=== PATIENT | female | born 1990 | race Caucasian/White ===

== ENCOUNTER 2018-03-27 18:56 | Emergency (ER) | payer MEDICAID, SELFPAY ==
[2018-03-27 18:58] VITALS: BP 126/81; PULSE 108; RESP 16; TEMP 36.6; O2SAT 98; BMI 25.9
--- NOTE | 2018-03-27 19:11 | CT_ITS ---
STUDY: CT ABDOMEN AND PELVIS WITH CONTRAST REASON FOR EXAM: Female, 28 years old. Right flank pain RADIATION DOSAGE (If Supplied By Facility): CTDIvol = ( 7.432 ) mGy, DLP = ( 562.45 ) mGycm TECHNIQUE: Transaxial images were obtained from the dome of the diaphragm to the symphysis pubis with oral contrast. 100 ml of Isovue 300 contrast was administered. Sagittal and coronal images were reconstructed. Individualized dose optimization techniques were used for this CT. COMPARISON: 01/24/2014 FINDINGS: The visualized lung bases are clear. The visualized portions of the heart and pericardium are within normal limits. The patient is status post cholecystectomy. The liver is within normal limits. There are no suspicious hepatic lesions. The spleen is normal in size. The pancreas is within normal limits. The adrenal glands are within normal limits. There are subcentimeter nonobstructing stones in the collecting system of the right kidney, measuring up to 3 mm. There are no left renal stones. There are no ureteral stones. There is no hydronephrosis. There are no focal renal lesions. Normal visualized stomach. There is no bowel obstruction or inflammation. The appendix is visualized and appears normal. The aorta is normal in caliber. There is no abdominal or pelvic free air, free fluid, fluid collection or lymphadenopathy. There is a 2 cm right adnexal cyst which is likely physiologic. There are no destructive osseous lesions. CT/Abdomen/Pelvis WITH Contrast IMPRESSION: Subcentimeter nonobstructing stones in the collecting system of the right kidney, measuring up to 3 mm. No additional urinary calculi. No hydronephrosis. No bowel obstruction or inflammation. Normal appendix. 2 cm right adnexal cyst which is likely physiologic. Electronically Signed: Junaid Pepper, at 21:21 EDT Tel , Service support ,
[2018-03-27 19:41] LABS: Bacteria 0 SEEN /hpf (None Seen); Mucous, Urine 0 SEEN /hpf (<or=2+); Red Blood Cells-Urine 0 SEEN /hpf (0-5)
[2018-03-27 19:51] LABS: Color, Urine Yellow (Yellow); Glucose, Dipstick Normal (Normal); Ketone-Dipstick 5 mg/dl (Negative); Leukocyte Esterase-Dipstick 25 /ul (Negative); Nitrite-Dipstick Negative (Negative); Occult Blood-Urine 10 /ul (Negative); Protein-Dipstick 30 mg/dl (Negative); Urine Bilirubin Dipstick Negative (Negative); Urine Clarity Clear (Clear); Urine Urobilinogen Normal (Normal)
[2018-03-27] MEDS: Ondansetron 4 MG/2 ML Vial IV (19:53)
[2018-03-27] MEDS: 0.9% Normal Saline 1,000 ML 1000 ML IV (19:54)
[2018-03-27 20:20] LABS: Absolute Lymphocyte Count 4.65 X10^3/ul (0.83-4.51); Absolute Neutrophil Count 3.8 X10^3/uL (2.0-7.7); Basophil# 0.05 X10^3/uL; Basophil% 0.5 % (0-1); Eosinophil# 0.42 X10^3/uL; Eosinophils% 4.2 % (0-5); Hematocrit 33.7 % (37-47); Hemoglobin 10.7 g/dl (12.0-15.0); Lymphocyte # 4.65 X10^3/ul (4.0); Mean Corp Hgb Conc 31.8 g/gl (32-36); Mean Corpuscular Hgb 28.9 pg (27.0-32.0); Mean Corpuscular Volume 91.1 fL (81-99); Mean Platelet Vol. 10.2 fl (6.2-12.0); Monocyte# 0.95 X10^3/uL; Monocyte% 9.6 % (0-10); Neutrophil # 3.81 X10^3/uL (2.7-7.7); Neutrophil % 38.5 % (47-70); Platelet Count 270 K/mm3 (150-450); RBC Distribution Width CV 13.3 % (11.6-14.6); RBC Distribution Width SD 43.4 fl (35.1-43.9); White Blood Count 9.9 K/mm3 (4.4-11.0)
[2018-03-27 20:28] LABS: AST(SGOT) 72 U/L (15-37); Alanine Aminotransfer ALT/SGPT 107 U/L (13-56); Albumin, Serum 3.6 g/dL (3.2-5.0); Alkaline Phosphatase 80 U/L (45-117); Anion Gap 7 (5-15); BUN 16 mg/dL (7-18); Calcium,Total 8.7 mg/dL (8.5-10.1); Chloride 108 mmol/L (98-107); Creatinine, Serum 0.73 mg/dL (0.55-1.02); EST Glomerular Filtration Rate 101 mL/min (>60); Est Glom Filt Rate - Afr Amer 123 mL/min (>60); Estimated Creatinine Clearance 82.41 ml/min; Glucose 98 mg/dL (74-106); Lipase 86 U/L (73-393); Potassium 3.8 mmol/L (3.5-5.1); Protein, Total 7.6 g/dL (6.4-8.2); Sodium Level 140 mmol/L (136-145)
[2018-03-27 20:37] LABS: POSITIVE COUNT NO; POSITIVE DIFFERENTIAL NO; POSITIVE MORPHOLOGY NO
[2018-03-27 20:38] LABS: White Blood Cells 0-5 SEEN /hpf (0-5)
[2018-03-27 20:39] LABS: Squamous Epithelial Cells - UA 0-5 SEEN /hpf (5-10)
[2018-03-27 20:41] LABS: Pregnancy, Serum, hCG Quali. NEGATIVE Negative (0-9 Nonpreg)
[2018-03-27] MEDS: Ondansetron ODT 4 MG Tablet PO (21:24)
--- NOTE | 2018-03-27 21:33 | ED.VISSUMM ---
- ER Visit Summary Date of Service: 03/27/18 Chief Complaint: Abdominal pain History of Present Illness: The patient is a [address] Vogel and Dr. Minna Santoro. She reports that she has right-sided abdominal pain began yesterday. It is a stabbing pain that is 9-10 hours and 6 out of 10 currently. Is worsened by nothing. Is relieved by pressure. She has had nausea and dry heaves. She denies any diarrhea. Her last bowel was yesterday. No melena or hematochezia. No dysuria frequency. Her last menstrual period was 3 weeks ago. She reports that she is on Suboxone. She has a history of IV drug abuse. She states that she has not used heroin or methamphetamine IV since March 01. Physical Examination: Vitals: Stable. Afebrile. General: Well-nourished and well-developed. Head: Normocephalic atraumatic. Neck: Supple, no lymphadenopathy. No JVD. Nontender. Cardiovascular: Regular rate and rhythm. No murmurs. Respiratory: No respiratory distress. Clear to auscultation bilaterally. Abdominal: Soft, moderate right lower quadrant tenderness to palpation, nondistended, normal bowel sounds. No guarding, rebound, or peritoneal signs. Back: Nontender. Extremities: Nontender, no edema. Skin: Normal color, no rash. Neurologic: Alert and oriented ?3. Cranial nerves II through XII are intact. Normal strength and sensation. Psych: Normal affect. Test Results: CT with p.o. and IV contrast shows nonobstructive stones in the right kidney. There is no hydronephrosis. She is a 2 cm right adnexal cyst. She has a normal appendix. CBC is marked for an H&H of 10.7 33.7 with 39 segmented neutrophils of 47 lymphocytes. Chem-7 is more for chloride 108. LFTs marked for an ALT of 107, AST of 72. Lipase is normal. UA is negative. test is negative. Emergency Department Course and Treatment: She was treated with Zofran IV. She refused Toradol, ibuprofen, and Tylenol. Patient is very upset that I will not treat her with opiate-based medications. She has 26 days since her last use of heroin. She is on Suboxone. I do not think it is appropriate to give her opiate medications. Treatment Plan: Patient be discharged instructions follow-up her primary care physician 1-2 days not improving. Return to the emergency department for any worsening symptoms. Disposition: To home in improved and stable condition. Impression: 1. Abdominal pain, uncertain cause. 2. History of heroin/methamphetamine abuse. This note was generated with [employer] dictation software. It may contain incorrect words, spelling, and punctuation that were not noted in review of the chart prior to signing ED Disposition - Plan for ED Patient: Disposition: Home or Assisted Living Chief Complaint: Flank Pain Instructions: ED Abdominal Pain Unkn Cause Prescriptions: Ondansetron [Zofran Odt] 4 mg PO Q8H PRN PRN #10 tablet PRN Reason: Nausea Referrals: Ermias Vogel MD [Primary Care Provider] - 1-2 Days if not improving
[2018-03-27 21:34] VITALS: BP 132/93; PULSE 87; O2SAT 95
--- NOTE | 2018-03-27 21:34 | NURSING ---
PATIENT THREATENING TO LEAVE BECAUSE STATES I AM NOT BEING TAKEN CARE OF HER IV WENT BAD IN CT. PATIENT WAS A VERY DIFFICULT STICK AND WAS STUCK TWICE BY THIS NURSE AND TWICE BY THE MEDIC WHOM WAS ABLE TO GET ACCESS IN HER FOREARM WITH A 24. PATIENT IS 3 WEEKS OUT FROM HEROIN USING, AND CLEAN. STATES THIS PAIN IS GOING TO MAKE ME USE AGAIN' SHE IS IN PAIN BUT REFUSES TORADOL WHEN I ASKED AND WHEN THE DOCTOR ASKED. DR. CHEN AWARE AND IS GOING TO GO IN A SPEAK TO THE PATIENT. SHE IS READY FOR DISCHARGE ALSO SO HE IS GOING TO SPEAK TO HER THEN.
[2018-03-27 21:42] VITALS: BP 132/93
== END 2018-03-27 21:43 | disposition home or self-care (01) ==
PROVIDERS: Emergency Provider Emergency Medicine; Family Provider Family Medicine; PCP Family Medicine
DX: R10.31 Right lower quadrant pain (principal); R11.0 Nausea; Z87.898 Personal history of other specified conditions; N20.0 Calculus of kidney; N83.201 Unspecified ovarian cyst, right side; N80.9 Endometriosis, unspecified; Z86.19 Personal history of other infectious and parasitic diseases; Z87.442 Personal history of urinary calculi; Z90.49 Acquired absence of other specified parts of digestive tract; F17.200 Nicotine dependence, unspecified, uncomplicated
CPT/HCPCS: 74177; 80048; 80076; 81001; 83690; 84703; 85025; 96361; 96374; 99285; J7030; Q9967; A4216; J2405

== ENCOUNTER 2019-05-21 15:08 | Emergency (ER) | payer MEDICAID, SELFPAY ==
[2019-05-21 15:09] VITALS: BP 121/71; PULSE 86; RESP 17; TEMP 36.1; O2SAT 98; BMI 24.9
--- NOTE | 2019-05-21 15:23 | ED.VISSUMM ---
- ER Visit Summary Date of Service: 05/21/19 Chief Complaint: Pelvic pain, vaginal bleeding, vomiting History of Present Illness: The patient is a 29 F who is a pelvic pain and vomiting for the past 3 days. 2 days ago she was seen at [facility] and had a work-up including labs, urine and a CT scan. She was diagnosed with PID and was given what sounds like a azithromycin and Rocephin. She still continues to have pain and vomiting. She states that her vaginal bleeding started yesterday. She describes it as heavy. She states her periods are always irregular so she does not know when her last normal one was. Denies any blood in the vomit. Denies any fevers. Physical Examination: Vital signs reviewed. HEENT exam unremarkable. Heart is regular rate and rhythm without murmurs. Lungs are clear to auscultation. Abdomen is soft with pain in the left lower quadrant. Extremities reveal no edema. Skin exam normal. Neurologic exam normal. Test Results: White blood cell count 13.1, sodium 135, AST 50. Urinalysis has blood but no significant infection. negative. Emergency Department Course and Treatment: The patient's hemoglobin is 14.1 today. It was 13.6 2 days ago. Her white blood cell count is trending down from 14.92 days ago to 13.1 today. She also had a CAT scan performed 2 days ago which did not show any intra-abdominal abscess or any other acute pathology at that time. I did not feel it was necessary to repeat this at this time. She does not have a fever. Her white blood cell count is trending down. She was given Zofran Toradol. She still had pain so she was given morphine. Since her laboratory studies are improving I feel she can be discharged home. I will give her NSAIDs along with Zofran ODT. She will call Dr. Martinez for follow-up Treatment Plan: [] Disposition: Discharge Impression: Nausea and vomiting, dysfunctional uterine bleeding This note was generated with [employer] dictation software. It may contain incorrect words, spelling, and punctuation that were not noted in review of the chart prior to signing ED Disposition - Plan for ED Patient: Referrals: Ermias Vogel MD [Primary Care Provider] -
[2019-05-21] MEDS: 0.9% Normal Saline 1,000 ML 1000 ML IV (15:52)
[2019-05-21] MEDS: Ondansetron 4 MG/2 ML Vial IV (15:52)
[2019-05-21] MEDS: Ketorolac 30 MG/ML Syringe IV (15:52)
[2019-05-21 16:12] LABS: Absolute Lymphocyte Count 2.79 X10^3/uL (0.83-4.51); Absolute Neutrophil Count 8.2 X10^3/uL (2.0-7.7); Basophil# 0.06 X10^3/uL; Basophil% 0.5 % (0-1); Eosinophil# 0.52 X10^3/uL; Hemoglobin 14.1 g/dL (12.0-15.0); Lymphocyte # 2.79 X10^3/ul (4.0); Lymphocyte % 21.2 % (19-41); Mean Corp Hgb Conc 33.6 g/dL (32-36); Mean Corpuscular Hgb 29.5 pg (27.0-32.0); Mean Corpuscular Volume 87.9 fL (81-99); Mean Platelet Vol. 9.6 fl (6.2-12.0); Monocyte% 11.4 % (0-10); NRBC Flagged by Analyzer 0 % (0-5); Neutrophil # 8.22 X10^3/uL (2.7-7.7); Neutrophil % 62.5 % (47-70); Platelet Count 252 K/mm3 (150-450); RBC Distribution Width CV 12.9 % (11.6-14.6); RBC Distribution Width SD 41.7 fl (35.1-43.9); Red Blood Count 4.78 M/mm3 (4.2-5.4); White Blood Count 13.1 K/mm3 (4.4-11.0)
[2019-05-21 16:14] LABS: Bacteria 0 SEEN /hpf (None Seen); Mucous, Urine 0 SEEN /hpf (<or=2+)
[2019-05-21 16:22] LABS: Color, Urine Amber (Yellow); Glucose, Dipstick Normal (Normal); Internal QC Validated? YES +Cl - CLEAR BKGD; Ketone-Dipstick 15 mg/dl (Negative); Leukocyte Esterase-Dipstick 100 /ul (Negative); Nitrite-Dipstick Negative (Negative); Occult Blood-Urine 250 /ul (Negative); Protein-Dipstick 30 mg/dl (Negative); Specific Gravity, Urine 1.015 (1.002-1.030); Urine Bilirubin Dipstick Negative (Negative); Urine Clarity Cloudy (Clear); Urine Urobilinogen Normal (Normal)
[2019-05-21 16:23] LABS: Pregnancy, Urine Negative Negative
[2019-05-21 16:39] LABS: Red Blood Cells-Urine > 100 SEEN /hpf (0-5); Squamous Epithelial Cells - UA 0-5 SEEN /hpf (5-10); White Blood Cells 5-10 SEEN /hpf (0-5)
[2019-05-21 16:40] LABS: ALB/GLOB Ratio 0.7 RATIO (0.9-2.4); AST(SGOT) 50 U/L (15-37); Alanine Aminotransfer ALT/SGPT 40 U/L (13-56); Albumin, Serum 2.9 g/dL (3.2-5.0); Alkaline Phosphatase 76 U/L (45-117); Anion Gap 4 (5-15); BUN 11 mg/dL (7-18); BUN/Creat Ratio 15.1 RATIO (10-20); Calcium,Total 8.5 mg/dL (8.5-10.1); Chloride 102 mmol/L (98-107); Creatinine, Serum 0.73 mg/dL (0.55-1.02); EST Glomerular Filtration Rate 100 mL/min (>60); Est Glom Filt Rate - Afr Amer 121 mL/min (>60); Estimated Creatinine Clearance 81.68 ml/min; Globulin 4.4 g/dL (2.2-4.2); Glucose 90 mg/dL (74-106); Lipase 37 U/L (73-393); Potassium 3.8 mmol/L (3.5-5.1); Protein, Total 7.3 g/dL (6.4-8.2); Sodium Level 135 mmol/L (136-145)
--- NOTE | 2019-05-21 16:44 | ED.DEP ---
ED Disposition - Plan for ED Patient: Disposition: Home or Assisted Living Instructions: Dysfunctional Uterine Bleeding Prescriptions: Diflunisal [Dolobid] 500 mg PO TID #20 tab Prescription Printed Ondansetron [Zofran Odt] 4 mg PO Q8H PRN PRN #10 tab PRN Reason: Nausea Prescription Printed Referrals: Ermias Vogel MD [Primary Care Provider] -
[2019-05-21] MEDS: Morphine 4 MG/ML Syringe IV (16:53)
[2019-05-21 16:58] VITALS: TEMP 37.2
== END 2019-05-21 17:19 | disposition home or self-care (01) ==
PROVIDERS: Emergency Provider Emergency Medicine; Family Provider Family Medicine; PCP Family Medicine
DX: N93.8 Other specified abnormal uterine and vaginal bleeding (principal); R11.2 Nausea with vomiting, unspecified; G40.909 Epilepsy, unspecified, not intractable, without status epilepticus
CPT/HCPCS: 80053; 81001; 81025; 83690; 85025; 96361; 96374; 96375; 99283; J7030; A4216; J2405

== ENCOUNTER 2020-02-17 12:55 | Emergency (ER) | payer MEDICAID, SELFPAY ==
[2020-02-17 12:56] VITALS: BP 162/105; PULSE 125; RESP 18; TEMP 36.6; O2SAT 99; BMI 36.1
--- NOTE | 2020-02-17 13:18 | CT_ITS ---
STUDY: CT ABDOMEN AND PELVIS WITH CONTRAST REASON FOR EXAM: Female, 30 years old. RIGHT FLANK PAIN. PRIOR CHOLECYSTECTOMY RADIATION DOSAGE (If Supplied By Facility): CTDIvol = ( 14.99 ) mGy, DLP = ( 985.45 ) mGycm TECHNIQUE: Transaxial images were obtained from the dome of the diaphragm to the symphysis pubis with oral contrast. Oral and amp; IV Gastrografin and amp; 100mL Isovue-370 was administered. Sagittal and coronal images were reconstructed. Individualized dose optimization techniques were used for this CT. COMPARISON: Comparison is made with prior examination dated March 27, 2018. FINDINGS: The visualized lung bases are unremarkable. The visualized portions of the heart are within normal limits. There is decreased attenuation of the liver consistent with steatosis. The patient is status post cholecystectomy. Normal spleen. Normal pancreas. Normal bilateral adrenal glands. Normal right kidney. Normal left kidney. Normal visualized stomach. Normal small intestine. Normal colon. The appendix is visualized and appears normal. Normal abdominal aorta. Normal inferior vena cava. Normal retroperitoneum. Normal urinary bladder. Small follicles are seen in both ovaries. Normal abdominal wall. Minimal dextroscoliosis. CT/Abdomen/Pelvis WITH Contrast IMPRESSION: Fatty infiltration of the liver Small follicles are seen in both ovaries. Electronically Signed: Kendrick Ghosh, at 15:26 EDT , Service support ,
--- NOTE | 2020-02-17 13:19 | ED.VIS.GEN ---
History of Present Illness Chief Complaint: Abd Pain Informant: Patient Narrative: Patient states for the past 3 weeks she is been experiencing intermittent nausea vomiting and diarrhea. She states that she has lost her appetite. She feels that her upper abdomen is swollen. She has been referred to gastroenterology but she is not sure with to whom. She states that she was sent there because she has elevated liver enzymes and she has hepatitis C. She reports that all of her symptoms began when she was taken off of her Suboxone due to the elevated liver enzymes. She states she is getting worse every day and gets worse and worse. She states she called her doctor's office today and they sent her to the emergency department. No fevers. Past Medical History - Allergies and Home Meds Allergies/Adverse Reactions: Allergies promethazine HCl [From Phenergan] Allergy (Intermediate, Verified 02/17/20 12:58) Other Pt states she has a psychotic reaction. clindamycin Allergy (Verified 02/17/20 12:58) Anaphylaxis Swells throat shut. quetiapine [From Seroquel] Allergy (Verified 02/17/20 12:58) Other HALLUCINATION alprazolam [From Xanax] Adverse Reaction (Verified 02/17/20 12:58) Other PSYCHOTIC RAGE trazodone Adverse Reaction (Verified 02/17/20 12:58) Other RESTLESS LEGS any psychotic medications Allergy (Uncoded 02/17/20 13:11) Other psychotic reactions-gets violentadverse reaction Primary Care Physician: Ermias Vogel MD [Primary Care Provider] - Surgical History: cholecystectomy, - - Bilateral salpingectomy, exploratory laparoscopy Smoking Status: Current every day smoker - Family History Offspring Family History: Reports: - - Supraventricular tachycardia. Maternal Family History: Reports: Diabetes Paternal Family History: Reports: No pertinent history Review of Systems General: Denies: Chills, Fever, Sweats Eyes: Denies: Visual changes - bilaterally, Diplopia ENT: Denies: Rhinorrhea, Sore throat Cardiovascular: Denies: Chest pain, Palpitations Respiratory: Denies: Dyspnea, Cough, Dyspnea on exertion Gastrointestinal: Reports: Abdominal pain, Nausea, Vomiting, Diarrhea. Denies: Melena, Hematochezia Genitourinary: Denies: Dysuria, Hematuria, Frequency Musculoskeletal: Denies: Back pain, Extremity Pain Skin: Denies: Rash, Wounds Neurological: Denies: Headache, Weakness, Numbness Physical Exam Vital Signs/Narrative: Vital Signs Temp Pulse Resp BP Pulse Ox 02/17/20 12:56 97.9 F 125 H 18 162/105 H 99 Inital Vital Signs reviewed: Yes General: Well nourished, Well developed, Obese, No Acute Distress Head: Normocephalic, Atraumatic Eyes: Perrl, EOMI ENT: Moist mucous membranes, No rhinorrhea Neck: Supple, Nontender Cardiovascular: Regular rate, Regular rhythm, No murmurs Respiratory: No distress, CTA bilaterally, Chest nontender Abdomen: Soft, Nondistended, Normal bowel sounds, Tender. Negative for: Guarding, Rebound tenderness Back: Nontender, Normal Inspection Extremities: Nontender, No edema Skin: Normal color, No rash Neurological: Alert, Oriented x3, Cranial nerves II-XII grossly intact, Normal Strength, Normal Sensation Psychological: Normal affect, Normal Mood Diagnostic/Tx/Re-eval - Medical Decision Making Basic blood work showed a mild elevation in her transaminases but not as significant as her doctors which showed transaminases approaching AST [address] the abdomen pelvis was negative. Patient received Zofran and appeared to have slight phlebitis post injection but that has resolved. At this point the patient will be discharged home. She is to follow-up with her doctor and her control center operator as scheduled. I will write for Zofran at home. ED Disposition - Plan for ED Patient: Disposition: Home or Assisted Living Diagnosis: Acute abdominal pain, Hepatitis C, Vomiting Instructions: ED Abdominal Pain Unkn Cause Fem, Hepatitis C Prescriptions: Ondansetron [Zofran Odt] 4 mg PO Q6H PRN PRN #20 tab PRN Reason: Nausea Transmission Status: Pending to [facility] Referrals: Ermias Vogel MD [Primary Care Provider] - As soon as possible
[2020-02-17] MEDS: Ondansetron 4 MG/2 ML Vial IV (13:33)
[2020-02-17] MEDS: 0.9% Normal Saline 1,000 ML 1000 ML IV (13:33)
[2020-02-17 13:41] LABS: Absolute Neutrophil Count 8.8 X10^3/uL (2.0-7.7); Basophil# 0.09 X10^3/uL; Basophil% 0.6 % (0-1); Eosinophil# 0.62 X10^3/uL; Eosinophils% 4.4 % (0-5); Hematocrit 44.1 % (37-47); Hemoglobin 14.2 g/dL (12.0-15.0); Lymphocyte % 25.6 % (19-41); Mean Corp Hgb Conc 32.2 g/dL (32-36); Mean Corpuscular Volume 93.2 fL (81-99); Mean Platelet Vol. 9.7 fl (6.2-12.0); Monocyte# 0.93 X10^3/uL; Monocyte% 6.6 % (0-10); NRBC Flagged by Analyzer 0 % (0-5); Neutrophil # 8.75 X10^3/uL (2.7-7.7); Neutrophil % 62.4 % (47-70); Platelet Count 373 K/mm3 (150-450); RBC Distribution Width SD 41.6 fl (35.1-43.9); Red Blood Count 4.73 M/mm3 (4.2-5.4)
[2020-02-17 13:44] LABS: ALB/GLOB Ratio 0.9 RATIO (0.9-2.4); AST(SGOT) 199 U/L (15-37); Alanine Aminotransfer ALT/SGPT 265 U/L (13-56); Albumin, Serum 4.1 g/dL (3.2-5.0); Alkaline Phosphatase 81 U/L (45-117); Anion Gap 6 (5-15); BUN 9 mg/dL (7-18); Calcium,Total 9.6 mg/dL (8.5-10.1); Chloride 113 mmol/L (98-107); Creatinine, Serum 0.82 mg/dL (0.55-1.02); EST Glomerular Filtration Rate 87 mL/min (>60); Est Glom Filt Rate - Afr Amer 105 mL/min (>60); Estimated Creatinine Clearance 72.06 ml/min; Globulin 4.7 g/dL (2.2-4.2); Glucose 102 mg/dL (74-106); Lipase 48 U/L (73-393); Potassium 3.6 mmol/L (3.5-5.1); Protein, Total 8.8 g/dL (6.4-8.2); Sodium Level 141 mmol/L (136-145)
[2020-02-17 14:00] LABS: Internal QC Validated? YES +Cl - CLEAR BKGD; Pregnancy, Serum, hCG Quali. NEGATIVE Negative
[2020-02-17 15:00] VITALS: BP 139/89; PULSE 99; RESP 18; O2SAT 97
== END 2020-02-17 16:11 | disposition home or self-care (01) ==
PROVIDERS: Emergency Provider Emergency Medicine; PCP Family Medicine
DX: R10.9 Unspecified abdominal pain (principal); R11.2 Nausea with vomiting, unspecified; B19.20 Unspecified viral hepatitis C without hepatic coma; F17.200 Nicotine dependence, unspecified, uncomplicated; E66.9 Obesity, unspecified; Z68.36 Body mass index [BMI] 36.0-36.9, adult; Z90.49 Acquired absence of other specified parts of digestive tract
CPT/HCPCS: 74177; 80053; 83690; 84703; 85025; 96361; 96374; 99285; J7030; Q9967; A4216; J2405

== ENCOUNTER 2020-12-20 09:00 | Outpatient (RCR) | payer MEDICAID, SELFPAY ==
--- NOTE | 2020-12-20 09:00 | BH.COMM ---
Communication Note - Communication with Client Communication Note: Met with pt to complete initial paperwork for IOP. No significant changes since pre-admission screening. Completed [place] [facility] Screening and pt is low risk. Denies any SI, plan, or intent in the past month.
--- NOTE | 2020-12-20 09:00 | BH.SGPN.GN ---
Behaviors/Verbalizations/Mental Status: []Client alert and oriented, casually dressed. Eye contact fair. Motor activity appropriate. Speech within normal limits. Affect congruent, mood anxious. Thoughts linear, logical, no signs of hallucinations or delusions. Reviewed client?s symptom tracker, client scored himself within his baseline on 12/20/20. Client Response/Progress/Benefit: []Client responded well to session, engaged throughout and participated in group discussion. Client reported feeling ?unstable? this morning after sharing stressors of challenging her triggers. Identified ?change? as a trigger to mental health. Reported rearranging her living room furniture and letting dirty dishes sit in the sink to challenge her uncomfortable feelings. Stated she woke up three times within the night due to the uncomfortable feelings related to the rearranged furniture. Progress noted as client was vulnerable in her check-in as it was client?s first day of IOP program. Disclosed having previous hx of AoD IOP tx due to being 18 months sober from methamphetamine. Benefited from group as client established rapport with other group members and received positive feedback from peers. Will continue IOP to stabilize mood, prevent decompensation, and promote the use of healthy coping skills. Narrative Note: []
--- NOTE | 2020-12-20 10:00 | BH.SGPN.GN ---
Behaviors/Verbalizations/Mental Status: [] Client alert and oriented, casually dressed and groomed. Eye contact fair to good. Motor activity appropriate. Speech within normal limits. Affect constricted, mood anxious and dysthymic. Thoughts linear, logical, no signs of hallucinations or delusions. Client Response/Progress/Benefit: [] Client attentive but passive participant AEB providing limited input to discussion however was listening attentively. Group identified the benefits of having a support system such as: emotional release, ability to rebound quicker after a setback, gain perspective, and not feeling alone. Client noted connecting with these supports AEB nodding her head throughout discussion. Group also discussed the barriers to accessing support in which client noted connecting with several examples provided. Did well to engage in the social support activity AEB willingness to work with fellow participants to complete the challenge activity. Seemed to benefit from increased awareness of potential benefits of social support. Will continue IOP tx to promote gains and further reduce mental health sx.
--- NOTE | 2020-12-20 11:13 | BH.SGPN.GN ---
Behaviors/Verbalizations/Mental Status: []Client alert and oriented, neatly dressed and groomed. Eye contact good. Motor activity appropriate. Speech within normal limits. Affect constricted, mood anxious. Thoughts linear, logical, no signs of hallucinations or delusions. Client Response/Progress/Benefit: []Client an active participant throughout AEB taking notes and participating when prompted. Client participated in the group activity highlighting the various barriers to effectively utilizing supports and strategies the group used. Client participated in discussion of the four types of support (emotion, tangible, informational, and social) and gave examples for all types. Client reports wanting to work on increasing emotional support and she plans to do this by ?being more open with my fiance.? Client reports it is hard for her to be vulnerable, but wants to get better at this. Client seemed to benefit from identifying the type of support client wants to improve. Client?s first day of IOP tx. Will continue IOP tx to prevent decompensation, improve mood stability, and learn healthy coping skills. Narrative Note: []
--- NOTE | 2020-12-22 08:57 | BH.SGPN.GN ---
Behaviors/Verbalizations/Mental Status: [] Eye contact is good. Alert and oriented. Motor activity is appropriate. Appearance is casual. grooming is appropriate. Speech is Appropriate. Mood is depressed and anxious. Affect is constricted. Thoughts are linear and logical. No evidence of psychosis or hallucinations. Client Response/Progress/Benefit: [] Pt engaged in session AEB listening to others and willingness to share thoughts and feelings with group. Pt struggled initially to identify personal wins, however able to do so with assistance. Shared that she was excited as she has an interview today for the first time in 5 years. Pt noted this helped to remind her of her capability and challenge negative thoughts about her worth. Pt noted additional mental health positive as taking steps to address her mental health sx by beginning the IOP program despite some reluctance. Pt shared current stressor as anxiety about the interview, but did well to identify positive self-talk messages she could use to encourage herself when feeling nervous. Shared a desire to further develop skills for better managing mental health sx. Recommended continued IOP tx to continue addressing mental health sx management and prevent decompensation. Narrative Note: []
--- NOTE | 2020-12-22 09:12 | BH.MDN ---
Multi-Disciplinary Note - Note 45-min Individual Time Started:: 11:23 Date: 12/22/20 Purpose of session/treatment goals addressed:: The purpose of this session was to gather information on client's current stressors, symptoms, prior mental health hx, and treatment goals. Another goal was to build rapport and provide psychoeducation. Eye Contact:: Good - tearful in discussing past substance use hx Motor Activity:: Appropriate Appearance:: Casual Speech:: Appropriate Mood:: Anxious, Depressed Affect:: Congruent Thoughts:: Linear, Logical, No evidence of hallucinations/delusions noted Staff Interventions:: Therapist used active listening and open-ended questions to explore client's current stressors, symptoms, mental health treatment history, and explore treatment goals. Therapist used strengths based approaches to build rapport and provide emotional support. Therapist provided psychoeducation on how intrusive thoughts can impact mental health sx. Therapist gave client encouragement and normalized the impact of chronic substance use on self-esteem and mental health. Client Response:: Client responded well to session, open to meeting with therapist. Client stated she has been in therapy on various occasions throughout her life. Noted never remaining consistent with outpatient therapy as she always felt ?I could do better at dealing with this than what they?re telling me to do?. Shared feeling she is no longer able to manage her mental health symptoms on her own and is more open to therapy than in the past. Client is 12 months sober from heroine and methamphetamines which she has used regularly over the past 10 to 15 years. She described using substances as a means of escaping her problems and self-medicating her symptoms of anxiety, depression, and PTSD. Discussed that she has recently realized ?I don?t know myself? since becoming sober and often feels uncomfortable in her own skin. Identified wanting to work on self-esteem and healthier coping skills to maintain her sobriety and continue to work towards ?bettering myself?. Client shared that she has begun to make progress in the area of self-improvements as she has her first job interview in 5 years today. Expressed being hopeful, excited, and nervous about this. Indicated that finances have been an ongoing stressor as she currently relies primarily on her fianc??s income but that the relationship is often strained. Client self-described as being co-dependent on her fianc? which she does not like and would like to work on. Client identified her relationship with her mother as another primary stressor. Client?s mother has custody of two of her children which is an ongoing area of tension. She additionally shared feeling her mother favors her sister which she feels resentful about. Client explained that her mother has offered support to client?s sister who is also an addict on multiple occasions but has never displayed empathy or supports towards client in times of struggle. Risks/Concerns:: Client denies any active suicidal ideations, plan, and intent as of 12/22/20. Protective factors include fear her children, fianc?, and goals for her future. Reports motivation to get better. Progress Toward Goals/Plan:: Client's first week of IOP, reports she is motivated to improve her mental health sx and is hopeful the IOP program will aid in promoting progress. She reports enjoying her previous experiences with substance abuse related IOP tx and believes she will feel the same about completing a mental health IOP program. Client endorses a depressed mood, anhedonia. Mood swings, sx of PTSD including flashbacks, low self-esteem, ruminations, and constantly feeling anxious. Client's symptoms have been impacting her socially, emotionally, and financially. Will continue IOP tx to prevent decompensation, reduce intensity of symptoms, and improve daily functioning. Time Stopped:: 12:05
--- NOTE | 2020-12-22 10:55 | BH.NA_ITS ---
Physical Data - Vital Signs Pulse Rate: 75 Blood Pressure: 147/97 - Height/Weight Height: 1.55 m Weight:: 85.275 kg - standing scale Weight in Pounds: 188.0 lbs Current Medication Compliance - Medication Compliance Do you take your medication as prescribed?: Yes Nutritional History - Appetite Nutritional Instructions:: If client shows signs of a swallowing problem, weight change of 10 pounds or more in the last month, or is on a diabetic diet, the physician will review and request a dietitian consult, as appropriate. All unintentional weight loss will be referred to the physician for decision on need for dietitian consult. Describe your appetite:: Fair Additional nutritional information:: Client states she believes her Trazodone has been making her feel nauseous and states she will be stopping this. Client states since stopping the Amitriptyline, she has lost about 10lbs without effort. Functional Assessment - Sleep Pattern Describe any problems with sleeping: Client states she wakes up about every hour at night, stating she sleeps about 5-6 hours. - Activities Motor Activity:: Functional Sensory/Communication Assess - Communication Problems Do you have difficulty understanding what people are saying?: No What is your primary language?: [place] Medical Problems/History - Neurological Conditions Neurological: Headaches - Hematologic Conditions Hematologic: Other (See comments) Comments:: hx of hepatitis C, client states she got treatment for same for 3 months and levels went down to normal. Client states she will have repeat labs again soon. - Metabolic Conditions Metabolic: Other (See comments) Comments:: Client states she has an elevate A1C, she states she has lost some weight recently and will have her A1C tested again soon. - Additional History Additional comments:: ADHD, bipolar, borderline personality Surgical History - Surgical History Have you had any surgeries? If so, list type and date:: Yes - cholecystectomy, liver biopsy, D&C x2, tubal ligation Contagious Disease/Exposure - Exposure Have you been exposed to any of the following:: Hepatitis Substance Abuse - Substance Abuse Please describe substance abuse in the last 30 days:: Client denies alcohol use. Client states she has been sober from drug use for 18 months. Client states she had been a heroin user since age 19, opiate user since age 17, and meth user since age 26. Client takes Suboxone daily. Client states she smokes cigarettes a couple of times per week and vapes daily. Client states several caffiene beverages per day. Mental Status Summary - Mental Status Significant Findings/Observations on Appearance and Mood:: Client is alert and oriented x 4. Client is casually dressed with good hygiene. Client is wearing a mask due to COVID 19 pandemic. Client makes good eye contact. Client's speech has normal rate and volume. Client appears mildly anxious. Client makes logical associations. Client denies SI. Client denies delusions/hallucinations. Suicide Assessment - Suicidal Ideation Are you currently or have you been suicidal in the past?: Yes - denies SI currently Suicidal Intentional Rating Scale (SIRS): Suicidal thoughts (past) Physician Notification: If Active suicidal thoughts/Will not contract for safety is checked, contact physician and document in the Physician Notification section below. Past Psychiatric History - Treatment Hx Past Psychiatric Medications:: Trazodone, Seroquel (one time use, caused hallucinations), Xanax, Klonopin, Amitriptyline, Depakote, Risperdal, Abilify, Geodon, Remeron, Doxepin (made suidical/homicial) Age of first mental health symptoms: Client states she was diagnosed around age 17 with bipolar and borderline personality. Client states this is about the same time her drug abuse started. Describe (age, circumstance, etc) any past hospitalizations: in 2019, she was hospitalized at [facility] for meth psychosis and depression and SI. Current providers for mental health treatment (counselor, psychiatrist, manager of case management, etc.): [facility] for therapy/clinical psychology professor. Fall Risk Assessment - Age Age: Less than 60 - Mental Status Mental Status: Willing & able to ask for assistance when needed - Physical Status Physical Status: No problems - Impairments Impairments: None - Elimination Elimination: Continent AND independent - Gait or Balance Gait or Balance: Walks independently - Hx of Falls History of falls in the past 6 months: No known history - Medications/Substances Medications/substances used within the past 24 hours or ordered to administer: None of the medications/substances list above - Total Score Total Points:: 0 RN Summary of Impressions - Impressions Recommendations: Include psychiatric and medical issues, treatment planning recommendations, and discharge planning needs. 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 - Level of Care How do the client's current symptoms and functional deficits support need for this level of care?: Client was referred to IOP by outpatient therapist for depression and erratic moods. Client states she feels her moods are very unstable. Client reports daily panic attacks that usually happen every evening. Client states she is afraid of the dark and does not like it when it gets dark and her significant other goes to sleep before her. Client reports nausea, dry heaving, and hyperventilating with her panic attacks. Client states she has been part of a cognitive behavioral therapy program per court order, but states she feels unable to control moods/emotions and she is afraid this will lead to drug abuse because that is what she has done in the past. Client states since being an adult, she has spent more time in custodial than not and she was last released from custodial at the beginning of pandemic and she states functioning in pandemic has been a stressor. Client endorses decreased energy, avoidance, and erratic moods. IOP will promote gains and prevent further decompensation while providing social support and skills training.
[2020-12-22 11:52] VITALS: BP 147/97; PULSE 75
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
--- NOTE | 2020-12-22 12:40 | BH.PSY.EVA_ITS ---
Initial Treatment Plan - Patient Information Visit Information: ADMISSION DATE: EXPECTED LOS: 4-6 weeks - Problems/Symptoms Problem #1:: Mood instability Symptom:: Depression, irritability, worthlessness, hopelessness, biological disruption of sleep, fluctuations in energy level, guilt Problem #2:: Anxiety Symptom:: Occasional restlessness, fear, panic attacks, avoidance, re experiencing, flashbacks
--- NOTE | 2020-12-23 15:38 | BH.MTP ---
[facility] - Patient Information Program Physician:: Dr. Florez Primary Therapist:: SREEKANTH Garcia - Psychiatric Diagnoses Psychiatric Diagnoses:: Bipolar disorder, NOS; generalized anxiety disorder; PTSD; borderline personality disorder; history of opiate and methamphetamine use disorders which are in remission for 17 months on Suboxone treatment; history of ADHD; history of bulimia with emesis. Diagnosis Code(s):: F31.9 - Estimated LOS Estimated LOS (in weeks):: 6 Problem/Goal #1 - Problem/Goal #1 Stated Goal:: Client will increase mood stability, increase management of depressive symptoms, and reduce feelings of hopelessness/worthlessness. Description of Barriers: Client has a significant substance abuse hx, incarceration, difficulties communicating her needs with self/others, difficulties managing emotions, hx of ending therapy early due to feeling I could do a better job on my own, poor support system, hx of poor medication compliance, PTSD impacting sleep and daily functioning, ongoing legal issues Functional Impact: The patient is a 30-year-old, engaged, female who was referred to [facility] program by her outpatient substance abuse counselor. She was referred due to worsening depression, mood swings and inability to function which has slowly increased over the past 2 months. Reports that her primary stressors include: finances, currently not working, familial issues involving child custody, maintaining sobriety, PTSD, and feelings of worthlessness. At time of admission Client notes that current stressors are worsening sx of anxiety and depression. Endorses sx of: guilt, feeling hopeless/helpless, mood instability including increased irritability, irregular sleep and eating patterns, worry and increased rumination, panic at times, fear regarding maintaining sobriety, isolation and avoidance, as well as changes in daily energy levels. She describes a history of reexperiencing, flashbacks, nightmares and avoidance. Client has limited supports and reports that current sx are impacting her socially, emotionally, and occupationally. Goal Relevant Strengths/Supports: Client is motivated to improve her mental health, is familiar with the treatment environment, is positive about beginning therapy, and has successfully maintained sobriety for the past 12 months - Objectives Objective #1 Stated Objective: Client will learn and utilize 2-3 healthy coping strategies to better manage depressive and mood symptoms as shown by preventing decompensation AEB DSM-5 scores. Interventions: Through group and individual sessions, therapist will help client identify triggers and warning signs of depression and emotional dysregulation including emotional, physical, and behavioral changes. Therapist will teach client various coping skills to manage her symptoms and give client tangible resources to use to regulate emotions. Therapist will use cognitive restructuring techniques and help client gain awareness of negative thoughts that reinforce depressive cycles. Therapist will help client incorporate behavioral activation and assist client in setting SMART goals. Discharge Criteria: Client will have met this goal when she can report learning and using at least 2 coping skills to manage depressive symptoms and prevention decompensation AEB maintenance of DSM-5 symptoms. Target Date: 01/31/21 Review Date: 01/17/21 Objective #2 Stated Objective: Client will identify and replace 2-3 negative thinking patterns that reinforce unhelpful coping and negative self-talk. Interventions: Through groups and individual therapy, client will be provided with education on cognitive distortions, mistaken beliefs, and identifying and combating negative self-talk. Therapist will assist client in recognizing triggers for increased suicidal and depressive thought patterns. Therapist will help client explore connection between thoughts, feelings, and actions and help client reframe depressive thought patterns. Therapist will help client gain awareness of why client has developed negative thoughts and core beliefs of self. Therapist will use DBT and CBT techniques to challenge unhelpful thought patterns. Discharge Criteria: Client will have accomplished this goal when client can identify and replace at least 2 negative thinking patterns with more realistic, positive statements. Target Date: 01/31/21 Review Date: 01/17/21 Problem/Goal #2 - Problem/Goal #2 Stated Goal:: Client will reduce overall frequency, intensity, and duration of anxiety as well as better manage symptoms of PTSD so that daily functioning is not impaired. Description of Barriers: The patient is a 30-year-old, engaged, female who was referred to [facility] program by her outpatient substance abuse counselor. She was referred due to worsening depression, mood swings and inability to function which has slowly increased over the past 2 months. Reports that her primary stressors include: finances, currently not working, familial issues involving child custody, maintaining sobriety, PTSD, and feelings of worthlessness. At time of admission Client notes that current stressors are worsening sx of anxiety and depression. Endorses sx of: guilt, feeling hopeless/helpless, mood instability including increased irritability, irregular sleep and eating patterns, worry and increased rumination, panic at times, fear regarding maintaining sobriety, isolation and avoidance, as well as changes in daily energy levels. She describes a history of reexperiencing, flashbacks, nightmares and avoidance. Client has limited supports and reports that current sx are impacting her socially, emotionally, and occupationally. Functional Impact: The patient is a 30-year-old, engaged, female who was referred to [facility] program by her outpatient substance abuse counselor. She was referred due to worsening depression, mood swings and inability to function which has slowly increased over the past 2 months. Reports that her primary stressors include: finances, currently not working, familial issues involving child custody, maintaining sobriety, PTSD, and feelings of worthlessness. At time of admission Client notes that current stressors are worsening sx of anxiety and depression. Endorses sx of: guilt, feeling hopeless/helpless, mood instability including increased irritability, irregular sleep and eating patterns, worry and increased rumination, panic at times, fear regarding maintaining sobriety, isolation and avoidance, as well as changes in daily energy levels. She describes a history of reexperiencing, flashbacks, nightmares and avoidance. Client has limited supports and reports that current sx are impacting her socially, emotionally, and occupationally. Goal Relevant Strengths/Supports: Client is motivated to improve her mental health, is familiar with the treatment environment, is positive about beginning therapy, and has successfully maintained sobriety for the past 12 months - Objectives Objective #1 Stated Objective: Client will identify 2-3 anxiety triggers and 2 calming coping skills to use when feeling anxious or experiencing PTSD sx. Interventions: Therapist will help client increase awareness of anxiety and PTSD triggers and educate client on the ways anxiety impacts overall health. Therapist will teach client various calming strategies to promote emotional regulation and reduction of anxiety. Therapist will assist client in identifying stressors and teach client techniques to reduce, remove, or accept stressors to reduce anxiety. Therapist will discuss the importance of self-care in managing stress levels. Discharge Criteria: Client will have accomplished this goal when can report at least 2 triggers for anxiety and PTSD and state using 2 calming strategies to manage symptoms. Target Date: 01/31/21 Review Date: 01/17/21 Objective #2 Stated Objective: Client will identify 2-3 cognitive distortions that lead to rumination and learn 2-3 ways to manage these thoughts to better manage anxiety AEB DSM-5 score reduction. Interventions: Therapist will provide education on the most common cognitive distortions and teach client the connection between thoughts, emotions, and feelings. Therapist will assist client in identifying, challenging, and replacing dysfunctional thoughts with positive, more realistic thoughts. Therapist will use CBT and DBT techniques to help client gain awareness of thinking errors and learn how to more effectively handle negative thoughts. Discharge Criteria: Client will have accomplished this goal when can identify at least 2 cognitive distortions and at least 2 coping skills to manage negative thoughts as well as seen a reduction in DSM-5 scores. Target Date: 01/31/21 Review Date: 01/17/21
--- NOTE | 2020-12-28 15:21 | BH.DS ---
Discharge Summary - Demographics Date of Admission:: 12/20/20 Discharge Date: 12/22/20 Presenting Problems at Admission:: The patient is a 30-year-old, engaged, female who was referred to IOP program by her outpatient substance abuse counselor. She was referred due to worsening depression, mood swings and inability to function which has slowly increased over the past 2 months. Reports that her primary stressors include: finances, currently not working, familial issues involving child custody, maintaining sobriety, PTSD, and feelings of worthlessness. At time of admission Client notes that current stressors are worsening sx of anxiety and depression. Endorses sx of: guilt, feeling hopeless/helpless, mood instability including increased irritability, irregular sleep and eating patterns, worry and increased rumination, panic at times, fear regarding maintaining sobriety, isolation and avoidance, as well as changes in daily energy levels. She describes a history of reexperiencing, flashbacks, nightmares and avoidance. Client has limited supports and reports that current sx are impacting her socially, emotionally, and occupationally. 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 Reason for Discharge:: Pt informed therapist that the IOP program requirements were too much of a time commitment on top of her outpatient substance use treatment and probation requirements. Indicated wanting to pursue traditional outpatient counseling on a weekly basis. Only attended 2 days of IOP. Risperdal prescription was given for 0.5 mg p.o. nightly. In addition a prescription was given for Vistaril 50 mg p.o. 3 times a day as needed for anxiety and for sleep at night. Client was not connected with outpatient psychiatry due to recently starting IOP program. - Treatment Progress During Treatment & Response: No progress noted as pt was only in IOP program for 2 days. Issues Still to be Addressed:: Mood instability, Depression, irritability, worthlessness, hopelessness, disruption of sleep, fluctuations in energy level, guilt, Anxiety, fear, panic attacks, avoidance, reexperiencing, flashbacks Discharge Recommendations/Instructions:: Pt is currently linked with outpatient counseling through [facility] for ongoing substance use treatment. [facility] has a due diagnosis program. Client is not connected with outpatient psychiatry and is encouraged to follow-up with [facility] for ongoing medication management. Recommended to follow-up with her MH providers. Discharge Handout: Complete Discharge Handout with client on aftercare options and continuity of care.
== END 2020-12-26 23:59 ==
LOC: BHIOP 09:00
PROVIDERS: PCP Family Medicine; Referring Provider Psychiatry & Neurology Psychiatry; Visit Provider Psychiatry & Neurology Psychiatry
DX: F31.9 Bipolar disorder, unspecified (principal); F41.1 Generalized anxiety disorder; F43.10 Post-traumatic stress disorder, unspecified; F60.3 Borderline personality disorder; F90.9 Attention-deficit hyperactivity disorder, unspecified type; F50.2 Bulimia nervosa; Z79.899 Other long term (current) drug therapy
CPT/HCPCS: 90792; H0035; H2020; T1002; 90834

== ENCOUNTER 2021-02-14 13:57 | Emergency (ER) | payer MEDICAID, SELFPAY ==
[2021-02-14 13:58] VITALS: BP 108/82; PULSE 85; RESP 14; TEMP 36.3; O2SAT 97; BMI 35.4
--- NOTE | 2021-02-14 14:16 | ED.VIS.GEN ---
History of Present Illness Chief Complaint: Burn Informant: Patient Onset: Hours Context: Sudden Onset Timing: Continuous Quality: Pain Location: Hyperthenar eminence left hand Current Severity: Moderate Maximum Severity: Severe Worsened by: Burn Relieved by: Improved with cool compresses Associated Symptoms: No associated symptoms Narrative: Patient is a 31-year-old [id number] woman who grabbed a hot skillet. She presents with burn to the hyperthenar eminence. She states she is on Suboxone and does not want opiate analgesics. She denies paresthesia, anesthesia medics. She states her last tetanus is probably within the last 5 years. She has no other complaints. Prior similar symptoms: No Recent Illness/Hospitalization: No - Past Medical History (1) History of opiate therapy Status: Acute (2) Anxiety Status: Chronic (3) Epilepsy Status: Chronic (4) Fibromyalgia Status: Chronic (5) Hepatitis C Status: Chronic Past Medical History - Allergies and Home Meds Allergies/Adverse Reactions: Allergies promethazine HCl [From Phenergan] Allergy (Intermediate, Verified 02/14/21 14:01) Other Pt states she has a psychotic reaction. clindamycin Allergy (Verified 02/14/21 14:01) Anaphylaxis Swells throat shut. quetiapine [From Seroquel] Allergy (Verified 02/14/21 14:01) Other HALLUCINATION alprazolam [From Xanax] Adverse Reaction (Verified 02/14/21 14:01) Other PSYCHOTIC RAGE doxepin Adverse Reaction (Verified 02/14/21 14:01) Other made suicidal trazodone Adverse Reaction (Verified 02/14/21 14:01) Other RESTLESS LEGS/nausea any psychotic medications Allergy (Uncoded 02/14/21 14:01) Other psychotic reactions-gets violentadverse reaction Primary Care Physician: Ermias Vogel MD [Primary Care Provider] - Prior records reviewed: Yes Surgical History: cholecystectomy, - - Bilateral salpingectomy, exploratory laparoscopy Lives: Spouse/ Significant Other Smoking Status: Current every day smoker Alcohol: None Drugs: None - Family History Offspring Family History: Reports: - - Supraventricular tachycardia. Maternal Family History: Reports: Diabetes Paternal Family History: Reports: No pertinent history Review of Systems General: Denies: Chills, Fever, Malaise, Subjective, Sweats Eyes: Denies: Visual changes - bilaterally, Blurred Vision - bilaterally Gastrointestinal: Denies: Nausea, Vomiting Musculoskeletal: Reports: Swelling, Extremity Pain. Denies: Myalgias, Arthralgias, Neck pain, Back pain Skin: Reports: Wounds - Strain hypothenar eminence left hand Neurological: Denies: Weakness, Parasthesia, Numbness Physical Exam Vital Signs/Narrative: Vital Signs Temp Pulse Resp BP Pulse Ox 02/14/21 13:58 97.3 F L 85 14 108/82 H 97 Inital Vital Signs reviewed: Yes General: Well nourished, Well developed, Obese Head: Normocephalic, Atraumatic Eyes: Perrl, EOMI. Negative for: Pale conjunctiva, Scleral icterus Cardiovascular: Regular rate, Regular rhythm Respiratory: No distress Extremities: No edema. Negative for: Nontender Skin: Normal color, No rash, Trauma - Burn hyperthenar eminence with blistering. Negative for: Cyanosis, Diaphoresis, Jaundice Neurological: Alert, Oriented x3, Cranial nerves II-XII grossly intact, Normal Strength, Normal Sensation Psychological: Normal affect Diagnostic/Tx/Re-eval - Medical Decision Making Has partial-thickness burn hypothenar eminence left hand. Will treat with Silvadene cream and aspirin. Patient was discharged with appropriate home-going instructions for thermal burn. ED Disposition - Plan for ED Patient: Disposition: Home or Assisted Living Diagnosis: Partial thickness burn of left hand Instructions: ED [facility] ... Referrals: Ermias Vogel MD [Primary Care Provider] - As Needed Additional Instructions: Take aspirin 2-3 times a day for pain.
[2021-02-14] MEDS: Silver Sulfadiazine 1% Crm 50 gm Bottle 1 APPLIC TOPICAL (14:34)
[2021-02-14] MEDS: Aspirin 325 MG Tablet PO (14:34)
== END 2021-02-14 14:48 | disposition home or self-care (01) ==
LOC: ED 14:27
PROVIDERS: Emergency Provider Emergency Medicine; PCP Family Medicine
DX: T23.202A Burn of second degree of left hand, unspecified site, initial encounter (principal); X15.3XXA Contact with hot saucepan or skillet, initial encounter; Y93.9 Activity, unspecified; Y92.9 Unspecified place or not applicable; Y99.9 Unspecified external cause status; M79.7 Fibromyalgia; F17.200 Nicotine dependence, unspecified, uncomplicated
CPT/HCPCS: 99282

== ENCOUNTER 2022-06-29 10:37 | Emergency (ER) | payer MEDICAID, SELFPAY ==
[2022-06-29 10:38] VITALS: BP 129/83; PULSE 94; RESP 14; TEMP 36.8; O2SAT 96; BMI 31.4
--- NOTE | 2022-06-29 10:54 | EX.ED.DYSGE1 ---
HPI History of Present Illness Chief Complaint: Weakness Informant: patient Onset/Context/Timing Onset: Days Context: Gradual Onset Timing: Intermittent Current Severity: Mild Maximum Severity: Mild Narrative Narrative: 32-year-old female history of PTSD, bipolar, ADHD, hep C and prior drug abuse but has been sober now for 3 years. States that she has had generalized weakness and fatigue. Has had intermittent headache. Said at times she breaks out in a sweat. Had a fever as high as 101 the other day but that is since resolved. Denies any vomiting or diarrhea. Denies any dysuria, urgency or frequency. Bowel movement today. Recent Illness/Hospitalization: No [facility] Medical History Bipolar disorder Borderline personality disorder Generalized anxiety disorder History of ADHD History of bulimia Methamphetamine abuse in remission Opiate use PTSD (post-traumatic stress disorder) Restless leg syndrome Scoliosis Home Medications amitriptyline 25 mg tablet 50 mg PO QHS 06/29/22 [History Last Taken Unknown] baclofen 10 mg tablet 10 mg PO PRN PRN Pain 06/29/22 [History Last Taken Unknown] buprenorphine 8 mg-naloxone 2 mg sublingual film 1 film sublingual DAILY 06/29/22 [History Last Taken Unknown] ferrous sulfate 325 mg (65 mg iron) tablet (FeroSul) 325 mg PO DAILY 06/29/22 [History Last Taken Unknown] gabapentin 800 mg tablet 800 mg PO QHS 06/29/22 [History Last Taken Unknown] hydroxyzine pamoate 50 mg capsule 50 mg PO BID 06/29/22 [History Last Taken Unknown] lamotrigine 150 mg tablet (Lamictal) 150 mg PO DAILY 06/29/22 [History Last Taken Unknown] Allergy/AdvReac Type Severity Reaction Status Date / Time promethazine HCl Allergy Intermediate Other Verified 06/29/22 10:38 [From Phenergan] clindamycin Allergy Anaphylaxis Verified 06/29/22 10:38 quetiapine [From Seroquel] Allergy Other Verified 06/29/22 10:38 alprazolam [From Xanax] AdvReac Other Verified 06/29/22 10:38 doxepin AdvReac Other Verified 06/29/22 10:38 trazodone AdvReac Other Verified 06/29/22 10:38 any psychotic medications Allergy Other Uncoded 06/29/22 10:38 Social History Smoking Status: Current every day smoker tobacco type: e-cigarettes ROS ROS ED ROS Narrative Sweats. Fever resolved. Review of Systems ROS Unobtainable: Denies due to encephalopathy Constitutional Constitutional ED: Reports fever(s) and sweats; Denies chills Eyes Eyes: Denies blurry vision ENT ENT ED: Denies ear pain Cardiovascular Cardiovascular: Denies chest pain Respiratory/Chest Respiratory/Chest: Denies cough Gastrointestinal Gastrointestinal: Denies abdominal pain Genitourinary Genitourinary ED: Denies dysuria Musculoskeletal Musculoskeletal: Denies arthralgias Integumentary Denies abscess Neurologic Neurologic: Reports headache(s) Psychiatric Psychiatric: Denies anxiety Endocrine Endocrinology: Denies cold intolerance Hematologic/Lymphatic Hematologic/Lymphatic: Reports none Allergic/Immunologic Allergic/Immunologic ED: Denies mouth swelling or tongue swelling EXAM Physical Exam Narrative Exam Narrative: 32-year-old female vital signs stable afebrile. Pulse ox 96% on room air no signs hypoxia. H EENT exam normal. Posterior pharynx normal. Moist Riis membranes. Neck nontender. No lymphadenopathy. No thyromegaly. Lungs clear to auscultation bilaterally. Heart regular rate and rhythm no murmur. Rate about 90. Abdomen soft nontender. Normal bowel sounds. No peritoneal signs. Moving all 4 extremities. Nontender. No edema. No rashes. Back normal. Neurologic exam normal. Const Vital Signs: 06/29/22 10:38 06/29/22 10:49 Temperature 98.2 F Temperature Source Temporal Pulse Rate 94 Respiratory Rate 14 Respiratory Pattern Normal Blood Pressure 129/83 H Blood Pressure Mean 98 Pulse Ox 96 Oxygen Delivery Method Room Air Positive well nourished, well developed and obese; Negative for cachectic, contractures or unkempt General Appearance ED: well developed and NAD; Negative for unkempt, cachectic, contractures, cyanotic or diaphoretic Nutritional Appearance: obese; Negative for cachectic HEENT Reports moist mucous membranes; Denies dry mucous membranes Negative for trauma or tenderness Mouth ED: No dry mucous membranes Mouth: No dry mucous membranes Eyes PERRL and EOMs intact bilaterally General Eye ED: Negative for pale conjunctiva or scleral icterus Neck no lymphadenopathy, supple and no JVD General: Negative for tenderness Lymph Lymphatic: Negative for other Chest Wall inspection of chest normal and palpation of chest normal Chest: Negative for other Resp normal respiratory effort and clear to auscultation bilaterally Effort and Inspection: Negative for retractions Auscultation: Negative for rales, rhonchi or wheezes Cardio regular rate, regular rhythm, S1 normal heart sound, S2 normal heart sound and no murmurs Palpation: Negative for palpable S3 Rate: Negative for bradycardia Rhythm: Negative for abnormal rhythm GI normal to inspection, nondistended, normoactive bowel sounds, non-tender, non-distended and no masses Inspection: Negative for abdominal distention Auscultation: normoactive bowel sounds Palpation: soft; Negative for tender or guarding Back/Spine no CVA tenderness General Back: Negative for CVA tenderness Cervical Spine: Negative for cervical spine tenderness Thoracic Spine / Upper Back: Negative for thoracic spinal tenderness Lumbar Spine / Lower Back: Negative for lumbar spinal tenderness Extremity normal to inspection General Extremety ED: Negative for edema or tenderness General Extremity: Negative for edema Neuro oriented x3, CN's II-XII intact bilaterally and no sensory deficits noted Sensorium / Orientation: alert; Negative for orientation impaired, lethargic or stuporous Motor Exam: strength 5/5 throughout Psych mental status grossly normal Appearance: Negative for unkempt Attitude: No agitated Mood & Affect: Negative for depressed Skin no rashes or lesions noted, no wounds and skin turgor normal General Skin Exam: Negative for elasticity normal Lesions: No lesion noted Rashes: No rashes noted Trauma: Negative for abrasion Wounds: Negative for wounds noted MDM MDM MDM Narrative Medical decision making narrative: 38-year-old female with underlying psychiatric history. Has a completely normal exam. Screening labs will be obtained along with a TSH. Repeat exam patient doing well at 11:41 AM. We went over all of her test results and she will be discharged home with outpatient follow-up with her primary care physician. Lab Data Attestation: I reviewed the patient's lab results. Lab results narrative: CBC normal. White count 8.2. H&H of 13.3 and 40. Platelets 297. Electrolytes normal gap of 8 normal BUN and creatinine. Normal liver enzymes. Normal TSH 1.32. test negative. Labs: Laboratory Results - last 24 hr 06/29/22 06/29/22 06/29/22 11:08 11:08 11:08 WBC 8.2 RBC 4.70 Hgb 13.3 Hct 40.6 MCV 86.4 MCH 28.3 MCHC 32.8 RDW Std Deviation 38.3 RDW Coeff of Delmi 12.0 Plt Count 297 MPV 9.5 Immature Gran % (Auto) 0.100 Neut % (Auto) 61.6 Lymph % (Auto) 24.4 [place] % (Auto) 7.4 Eos % (Auto) 5.6 H Baso % (Auto) 0.9 Absolute Neuts (auto) 5.0 Absolute Lymphs (auto) 1.99 Nucleated RBC % 0 Sodium 137 Potassium 4.1 Chloride 105 Carbon Dioxide 24.0 Anion Gap 8 BUN 12 Creatinine 0.80 Estim Creat Clear Calc 76.18 Est GFR (MDRD) Af Amer 107 Est GFR (MDRD) Non-Af 88 BUN/Creatinine Ratio 15.0 Glucose 93 Calcium 9.2 Total Bilirubin 0.20 AST 24 ALT 33 Alkaline Phosphatase 80 Total Protein 7.8 Albumin 3.8 Globulin 4.0 Albumin/Globulin Ratio 1.0 TSH 1.32 Serum , Qual NEGATIVE Discharge Plan Triage Chief Complaint: Weakness ED Provider: Cholo Frey Dx/Rx/DC Orders Clinical Impression: Weakness Instructions: ED Weakness (Uncertain Cause) Prescriptions: No Action lamotrigine [Lamictal] 150 mg Tablet 150 mg PO DAILY hydroxyzine pamoate 50 mg capsule 50 mg PO BID Rx Instructions: 1 WHEN HOME FROM WORK 1 BEFORE BED amitriptyline 25 mg tablet 50 mg PO QHS gabapentin 800 mg tablet 800 mg PO QHS baclofen 10 mg tablet 10 mg PO PRN PRN (Reason: Pain) ferrous sulfate [FeroSul] 325 mg (65 mg iron) tablet 325 mg PO DAILY Label Comments: TAKE 1 TABLET BY MOUTH ONCE DAILY WITH BREAKFAST buprenorphine-naloxone 8-2 mg film 1 film sublingual DAILY Primary Care Provider: Ermias Vogel Referrals: Ermias Vogel MD [Primary Care Provider] - 1 Week if not improving Activity Restrictions/Additional Instructions: All your labs today were normal. Follow-up with your doctor if not improving. Return if worse. Your exam is also normal. We do not have a specific cause for your symptoms at this time. Disposition Disposition: Home, Self Care
[2022-06-29] MEDS: 0.9% Normal Saline 1,000 ML 999 ML IV (11:09)
[2022-06-29 11:15] LABS: Absolute Lymphocyte Count 1.99 X10^3/uL (0.83-4.51); Basophil# 0.07 X10^3/uL; Basophil% 0.9 % (0-1); Eosinophil# 0.46 X10^3/uL; Eosinophils% 5.6 % (0-5); Hematocrit 40.6 % (37-47); Hemoglobin 13.3 g/dL (12.0-15.0); Lymphocyte # 1.99 X10^3/ul (0.83-4.51); Lymphocyte % 24.4 % (19-41); Mean Corp Hgb Conc 32.8 g/dL (32-36); Mean Corpuscular Hgb 28.3 pg (27.0-32.0); Mean Corpuscular Volume 86.4 fL (81-99); Mean Platelet Vol. 9.5 fl (6.2-12.0); Monocyte% 7.4 % (0-10); NRBC Flagged by Analyzer 0 % (0-5); Neutrophil # 5.02 X10^3/uL (2.7-7.7); Neutrophil % 61.6 % (47-70); Platelet Count 297 K/mm3 (150-450); RBC Distribution Width SD 38.3 fl (35.1-43.9); White Blood Count 8.2 K/mm3 (4.4-11.0)
[2022-06-29 11:36] LABS: Internal QC Validated? YES +Cl - CLEAR BKGD; Pregnancy, Serum, hCG Quali. NEGATIVE Negative
[2022-06-29 11:39] LABS: AST(SGOT) 24 U/L (15-37); Alanine Aminotransfer ALT/SGPT 33 U/L (13-56); Albumin, Serum 3.8 g/dL (3.2-5.0); Alkaline Phosphatase 80 U/L (45-117); Anion Gap 8 (5-15); BUN 12 mg/dL (7-18); Calcium,Total 9.2 mg/dL (8.5-10.1); Chloride 105 mmol/L (98-107); EST Glomerular Filtration Rate 88 mL/min (>60); Est Glom Filt Rate - Afr Amer 107 mL/min (>60); Estimated Creatinine Clearance 76.18 ml/min; Glucose 93 mg/dL (74-106); Potassium 4.1 mmol/L (3.5-5.1); Protein, Total 7.8 g/dL (6.4-8.2); Sodium Level 137 mmol/L (136-145); Thyroid Stim Hormone (TSH) 1.32 uIU/mL (0.358-3.74)
== END 2022-06-29 12:01 | disposition home or self-care (01) ==
PROVIDERS: Emergency Provider Emergency Medicine; PCP Family Medicine; Visit Provider Emergency Medicine
DX: R53.1 Weakness (principal); F31.9 Bipolar disorder, unspecified; F17.290 Nicotine dependence, other tobacco product, uncomplicated; E66.9 Obesity, unspecified; Z79.899 Other long term (current) drug therapy
CPT/HCPCS: 80053; 84443; 84703; 85025; 96360; 99283; J7030

== ENCOUNTER → 2023-06-15 | Outpatient (CLI) | payer MEDICAID, SELFPAY ==
[2023-06-15 15:48] LABS: Hematocrit 38.3 % (37-47); Hemoglobin 12.2 g/dL (12.0-15.0); Mean Corp Hgb Conc 31.9 g/dL (32-36); Mean Corpuscular Hgb 27.4 pg (27.0-32.0); Mean Corpuscular Volume 86.1 fL (81-99); Mean Platelet Vol. 9.5 fl (6.2-12.0); Platelet Count 302 K/mm3 (150-450); RBC Distribution Width CV 11.8 % (11.6-14.6); RBC Distribution Width SD 37.4 fl (35.1-43.9); Red Blood Count 4.45 M/mm3 (4.2-5.4); White Blood Count 8.2 K/mm3 (4.4-11.0)
[2023-06-15 15:54] LABS: International Normalized Ratio 1.1; Prothrombin Time (Protime)PT. 13.9 SECONDS (11.7-14.9)
[2023-06-15 16:20] LABS: ALB/GLOB Ratio 1.1 RATIO (0.9-2.4); AST(SGOT) 15 U/L (15-37); Alanine Aminotransfer ALT/SGPT 23 U/L (13-56); Albumin, Serum 3.9 g/dL (3.2-5.0); Alkaline Phosphatase 60 U/L (45-117); Anion Gap 5 (5-15); BUN 9 mg/dL (7-18); BUN/Creat Ratio 9.3 RATIO (10-20); Calcium,Total 9.2 mg/dL (8.5-10.1); Chloride 104 mmol/L (98-107); Creatinine, Serum 0.97 mg/dL (0.55-1.02); EST Glomerular Filtration Rate 70 mL/min (>60); Est Glom Filt Rate - Afr Amer 85 mL/min (>60); Globulin 3.4 g/dL (2.2-4.2); Glucose 109 mg/dL (74-106); Potassium 3.9 mmol/L (3.5-5.1); Protein, Total 7.3 g/dL (6.4-8.2); Sodium Level 137 mmol/L (136-145)
[2023-06-23 14:12] LABS: HCV Quant. RNA PCR HCV Not Detected IU/mL (.); Hepatitis A AB, Total Positive (Negative)
== END | disposition home or self-care (01) ==
LOC: LAB 14:54
PROVIDERS: PCP Family Medicine; Referring Provider Family Medicine; Visit Provider Family Medicine
DX: B18.2 Chronic viral hepatitis C (principal)
CPT/HCPCS: 36415; 80053; 85027; 85610; 86708; 87522; 87902

== ENCOUNTER 2024-01-02 11:06 | Emergency (ER) | payer OTHER, SELFPAY ==
[2024-01-02 11:07] VITALS: BP 144/83; PULSE 91; RESP 16; TEMP 36.7; O2SAT 100; BMI 37.2
[2024-01-02 11:32] LABS: Absolute Lymphocyte Count 2.24 X10^3/uL (0.83-4.51); Absolute Neutrophil Count 3.9 X10^3/uL (2.0-7.7); Basophil# 0.09 X10^3/uL; Basophil% 1.2 % (0-1); Eosinophil# 0.61 X10^3/uL; Hemoglobin 12.4 g/dL (12.0-15.0); Lymphocyte # 2.24 X10^3/ul (0.83-4.51); Lymphocyte % 29.4 % (19-41); Mean Corp Hgb Conc 32.6 g/dL (32-36); Mean Corpuscular Hgb 27.4 pg (27.0-32.0); Mean Corpuscular Volume 84.1 fL (81-99); Mean Platelet Vol. 9.4 fl (6.2-12.0); Monocyte# 0.78 X10^3/uL; Monocyte% 10.2 % (0-10); NRBC Flagged by Analyzer 0 % (0-5); Neutrophil # 3.89 X10^3/uL (2.7-7.7); Neutrophil % 50.9 % (47-70); Platelet Count 294 K/mm3 (150-450); RBC Distribution Width CV 12.2 % (11.6-14.6); RBC Distribution Width SD 37.1 fl (35.1-43.9); Red Blood Count 4.52 M/mm3 (4.2-5.4); White Blood Count 7.6 K/mm3 (4.4-11.0)
--- NOTE | 2024-01-02 11:46 | EDS_ITS ---
HPI HPI - GI History of Present Illness Chief Complaint: Nausea/Vomiting/Diarrhea Narrative Narrative: 33-year-old female presenting with nausea, vomiting which has been ongoing problem for her for over a month. Patient has been seen by her primary care physician and has been to [facility]. She had blood work which was normal. She had a CT scan which is normal. She had a right upper quadrant ultrasound which was normal even though she is status post cholecystectomy. Patient reports that anytime she eats she gets sick within about 10 minutes and vomits. She has a lot of dyspepsia and epigastric burning. No fevers or chills. She reports that diarrhea the last couple of days. She states she supposed to follow-up with Dr. Serrano on an outpatient basis to get an upper endoscopy but has not been able to obtain this is not scheduled for January. [facility] Medical History Bipolar disorder Borderline personality disorder Epilepsy Generalized anxiety disorder History of ADHD History of bulimia Methamphetamine abuse in remission New onset seizure Opiate use PTSD (post-traumatic stress disorder) Restless leg syndrome Scoliosis Home Medications amitriptyline 25 mg tablet 50 mg PO QHS 06/29/22 [History Last Taken Unknown] baclofen 10 mg tablet 10 mg PO PRN PRN Pain 06/29/22 [History Last Taken Unknown] buprenorphine 8 mg-naloxone 2 mg sublingual film 1 film sublingual DAILY 06/29/22 [History Last Taken Unknown] ferrous sulfate 325 mg (65 mg iron) tablet (FeroSul) 325 mg PO DAILY 06/29/22 [History Last Taken Unknown] gabapentin 800 mg tablet 800 mg PO QHS 06/29/22 [History Last Taken Unknown] hydroxyzine pamoate 50 mg capsule 50 mg PO BID 06/29/22 [History Last Taken Unknown] lamotrigine 150 mg tablet (Lamictal) 150 mg PO DAILY 06/29/22 [History Last Taken Unknown] metoclopramide HCl 10 mg tablet (Reglan) 10 mg PO Q6H PRN nausea and vomiting #30 tabs 01/02/24 [Rx Last Taken Unknown] sucralfate 100 mg/mL oral suspension (Carafate) 10 ml PO BID #400 mL 01/02/24 [Rx Last Taken Unknown] Allergy/AdvReac Type Severity Reaction Status Date / Time promethazine HCl Allergy Intermediate Other Verified 01/02/24 11:09 [From Phenergan] clindamycin Allergy Anaphylaxis Verified 01/02/24 11:09 quetiapine [From Seroquel] Allergy Other Verified 01/02/24 11:09 alprazolam [From Xanax] AdvReac Other Verified 01/02/24 11:09 doxepin AdvReac Other Verified 01/02/24 11:09 trazodone AdvReac Other Verified 01/02/24 11:09 Social History Smoking Status: Current every day smoker tobacco type: e-cigarettes ROS ROS ED Constitutional Constitutional ED: Denies chills, fever(s) or sweats Eyes Eyes: Denies blurry vision or change in vision ENT ENT ED: Denies ear pain or sore throat Cardiovascular Cardiovascular: Denies chest pain, palpitations or racing heartbeat Respiratory/Chest Respiratory/Chest: Denies cough, dyspnea or sputum Gastrointestinal Gastrointestinal: Reports abdominal pain, diarrhea, nausea and vomiting; Denies constipation Genitourinary Genitourinary ED: Denies dysuria, hematuria or urinary frequency Musculoskeletal Musculoskeletal: Denies arthralgias, myalgias or neck pain Integumentary Denies abscess, Abrasions or rash Neurologic Neurologic: Denies headache(s), paresthesias or weakness Psychiatric Psychiatric: Denies anxiety, depression, suicidal ideation or suicidal thoughts Endocrine Endocrinology: Denies polydipsia or polyuria EXAM Physical Exam Const Vital Signs: 01/02/24 11:07 01/02/24 13:06 01/02/24 13:37 Temperature 98.0 F 97.2 F L Temperature Source Temporal Pulse Rate 91 85 85 Respiratory Rate 16 16 16 Blood Pressure 144/83 H 113/64 115/70 Blood Pressure Mean 103 80 85 Pulse Ox 100 99 99 Oxygen Delivery Method Room Air Room Air Positive well nourished General Appearance ED: NAD; Negative for pallor HEENT Reports moist mucous membranes normocephalic and atraumatic Eyes PERRL and EOMs intact bilaterally General Eye ED: Negative for pale conjunctiva or scleral icterus Resp normal respiratory effort Auscultation: Negative for rales, rhonchi or wheezes Cardio regular rate and regular rhythm GI Palpation: tender epigastric Neuro CN's II-XII intact bilaterally, moves all extremities and no sensory deficits noted Sensorium / Orientation: alert Motor Exam: strength 5/5 throughout Psych mental status grossly normal Skin General Skin Exam: Negative for jaundice or pallor MDM MDM MDM Narrative Medical decision making narrative: Patient presenting with nausea, vomiting, diarrhea. This is a chronic issue. Has some GERD symptoms as well. She is supposed to see gastroenterology and Jane. She is on omeprazole 40 mg p.o. daily. CBC, CMP, lipase all within normal limits. Urinalysis negative hCG negative. Patient given Reglan to help with her nausea she states that Zofran is not helping. It is noted that in the patient's medical history is states he has a seizure disorder and she states that seizures were from withdrawal and she does not have a seizure disorder and she is not on any medications for seizures. She states she does not have epilepsy and she has had Reglan before in the past without any difficulties. She is on Lamictal but she states that it is not for seizure disorder. Patient feeling better on examination. She was also given a GI cocktail. Patient will be given Carafate and Reglan for home. Return precautions discussed. Impression: 1. Gastritis 2. Abdominal pain 3. Gastroenteritis Lab Data Attestation: I reviewed the patient's lab results. Labs: Laboratory Results - last 24 hr 01/02/24 01/02/24 11:23 11:47 WBC 7.6 RBC 4.52 Hgb 12.4 Hct 38.0 MCV 84.1 MCH 27.4 MCHC 32.6 RDW Std Deviation 37.1 RDW Coeff of Delmi 12.2 Plt Count 294 MPV 9.4 Immature Gran % (Auto) 0.300 Neut % (Auto) 50.9 Lymph % (Auto) 29.4 [place] % (Auto) 10.2 H Eos % (Auto) 8.0 H Baso % (Auto) 1.2 H Absolute Neuts (auto) 3.9 Absolute Lymphs (auto) 2.24 Nucleated RBC % 0 Sodium 138 Potassium 4.0 Chloride 106 Carbon Dioxide 24.0 Anion Gap 8 BUN 10 Creatinine 1.00 Estim Creat Clear Calc 81.38 Est GFR (MDRD) Af Amer 82 Est GFR (MDRD) Non-Af 68 BUN/Creatinine Ratio 10.1 Glucose 96 Calcium 9.2 Total Bilirubin 0.50 AST 38 H ALT 50 Alkaline Phosphatase 87 Total Protein 7.7 Albumin 3.9 Globulin 3.8 Albumin/Globulin Ratio 1.0 Lipase 13 Urine Color Yellow Urine Clarity Clear Urine pH 6.5 Ur Specific [place] 1.010 Urine Protein Negative Urine Glucose (UA) Normal Urine Ketones Negative Urine Occult Blood Negative Urine Nitrite Negative Urine Bilirubin Negative Urine Urobilinogen Normal Ur Leukocyte Esterase Negative Urine RBC 0 SEEN Urine WBC 0 SEEN Ur Squamous Epith Cells 0 SEEN Urine Bacteria 0 SEEN Urine Mucus 0 SEEN Urine Test Negative Discharge Plan Triage Chief Complaint: Nausea/Vomiting/Diarrhea ED Provider: Tadeo Sosa Dx/Rx/DC Orders Instructions: ED Gastroenteritis, Viral (Adult) Prescriptions: New metoclopramide HCl [Reglan] 10 mg tablet 10 mg PO Q6H PRN (Reason: nausea and vomiting) Qty: 30 0RF sucralfate [Carafate] 100 mg/mL suspension 10 ml PO BID Qty: 400 0RF No Action lamotrigine [Lamictal] 150 mg Tablet 150 mg PO DAILY hydroxyzine pamoate 50 mg capsule 50 mg PO BID Rx Instructions: 1 WHEN HOME FROM WORK 1 BEFORE BED amitriptyline 25 mg tablet 50 mg PO QHS gabapentin 800 mg tablet 800 mg PO QHS baclofen 10 mg tablet 10 mg PO PRN PRN (Reason: Pain) ferrous sulfate [FeroSul] 325 mg (65 mg iron) tablet 325 mg PO DAILY Patient Comments: TAKE 1 TABLET BY MOUTH ONCE DAILY WITH BREAKFAST buprenorphine-naloxone 8-2 mg film 1 film sublingual DAILY Stand Alone Forms: ED Work / School Excuse Primary Care Provider: Ermias Vogel Referrals: Ermias Vogel MD [Primary Care Provider] - Disposition Disposition: Home, Self Care Discharge Date/Time: 01/02/24 13:38
[2024-01-02 11:48] LABS: AST(SGOT) 38 U/L (15-37); Alanine Aminotransfer ALT/SGPT 50 U/L (13-56); Albumin, Serum 3.9 g/dL (3.2-5.0); Alkaline Phosphatase 87 U/L (45-117); Anion Gap 8 (5-15); BUN 10 mg/dL (7-18); BUN/Creat Ratio 10.1 RATIO (10-20); Calcium,Total 9.2 mg/dL (8.5-10.1); Chloride 106 mmol/L (98-107); EST Glomerular Filtration Rate 68 mL/min (>60); Est Glom Filt Rate - Afr Amer 82 mL/min (>60); Estimated Creatinine Clearance 81.38 ml/min; Globulin 3.8 g/dL (2.2-4.2); Glucose 96 mg/dL (74-106); Lipase 13 U/L (13-75); Protein, Total 7.7 g/dL (6.4-8.2); Sodium Level 138 mmol/L (136-145)
[2024-01-02 11:52] LABS: Bacteria 0 SEEN /hpf (None Seen); Mucous, Urine 0 SEEN /hpf (<or=2+); Red Blood Cells-Urine 0 SEEN /hpf (0-5); Squamous Epithelial Cells - UA 0 SEEN /hpf (5-10); White Blood Cells 0 SEEN /hpf (0-5)
[2024-01-02 12:00] LABS: Color, Urine Yellow (Yellow); Glucose, Dipstick Normal (Normal); Ketone-Dipstick Negative (Negative); Leukocyte Esterase-Dipstick Negative /ul (Negative); Nitrite-Dipstick Negative (Negative); Occult Blood-Urine Negative /ul (Negative); Protein-Dipstick Negative (Negative); Urine Bilirubin Dipstick Negative (Negative); Urine Clarity Clear (Clear); Urine Urobilinogen Normal (Normal); Urine pH 6.5 (5.0 - 8.0)
[2024-01-02 12:08] LABS: Internal QC Validated? YES +Cl - CLEAR BKGD; Pregnancy, Urine Negative Negative; Record Kit Lot#,Urine Preg HCG0000718086
[2024-01-02] MEDS: Mag Hydrox/Al Hydrox/Simeth 30 ML UDC PO (12:17)
[2024-01-02 13:06] VITALS: BP 113/64; PULSE 85; RESP 16; O2SAT 99
[2024-01-02] MEDS: Metoclopramide 10 MG/2 ML Vial IV (13:23)
[2024-01-02 13:37] VITALS: BP 115/70; PULSE 85; RESP 16; TEMP 36.2; O2SAT 99
== END 2024-01-02 13:38 | disposition home or self-care (01) ==
PROVIDERS: Emergency Provider Student in an Organized Health Care Education/Training Program; PCP Family Medicine; Visit Provider Student in an Organized Health Care Education/Training Program
DX: K52.9 Noninfective gastroenteritis and colitis, unspecified (principal); F31.9 Bipolar disorder, unspecified; Z90.49 Acquired absence of other specified parts of digestive tract; K29.70 Gastritis, unspecified, without bleeding; R10.9 Unspecified abdominal pain; Z79.899 Other long term (current) drug therapy; F17.290 Nicotine dependence, other tobacco product, uncomplicated; K21.9 Gastro-esophageal reflux disease without esophagitis
CPT/HCPCS: 80053; 81001; 81025; 83690; 85025; 99283; A4216

== ENCOUNTER 2024-05-29 12:18 | Emergency (ER) | payer OTHER, SELFPAY ==
[2024-05-29 12:19] VITALS: BP 132/97; PULSE 87; RESP 24; TEMP 36.7; O2SAT 96
--- NOTE | 2024-05-29 12:50 | EKG12_ITS ---
Test Reason : Blood Pressure : / mmHG Vent. Rate : 079 BPM Atrial Rate : 079 BPM P-R Int : 154 ms QRS Dur : 080 ms QT Int : 392 ms P-R-T Axes : 019 027 011 degrees QTc Int : 449 ms Normal sinus rhythm Normal ECG Confirmed by JOVANI ISAAC MD ([id number]), slot editor ALLISON FRANCISCO ([id number]) on 05/30/2024 9:28:02 AM Referred By: Confirmed By:JOVANI ISAAC MD
[2024-05-29] MEDS: LORazepam 1 MG Tablet PO (13:17)
[2024-05-29 13:18] VITALS: BP 130/74; PULSE 82; RESP 16; O2SAT 96
--- NOTE | 2024-05-29 13:48 | EDS_ITS ---
HPI History of Present Illness Chief Complaint: Anxiety Narrative Narrative: Patient is a 34-year-old female with a past medical history of bipolar disorder, opiate use, PTSD, borderline personality disorder who presents to the emergency department with a chief complaint of anxiety. Patient states that she had a very stressful event yesterday dealing with her son. States that she tried to call her counselor and her psychiatrist does not and she states that she tried all her coping mechanisms however nothing was working. The counselor advised her to come here to the emergency department for further evaluation management. Patient states that she is not suicidal nor is she is not homicidal but she just does not know what to do to control her anxiety. Patient states that she has not tried to harm herself. [facility] Medical History Scoliosis Restless leg syndrome History of bulimia History of ADHD Methamphetamine abuse in remission Opiate use Borderline personality disorder PTSD (post-traumatic stress disorder) Generalized anxiety disorder Bipolar disorder Epilepsy New onset seizure Home Medications ?Medication ?Instructions ?Recorded ?Last Taken ?Type amitriptyline 25 mg tablet 50 mg PO QHS 06/29/22 Unknown History baclofen 10 mg tablet 10 mg PO PRN PRN Pain 06/29/22 Unknown History buprenorphine 8 mg-naloxone 2 mg 1 film sublingual DAILY 06/29/22 Unknown History sublingual film ferrous sulfate 325 mg (65 mg 325 mg PO DAILY 06/29/22 Unknown History iron) tablet (FeroSul) gabapentin 800 mg tablet 800 mg PO QHS 06/29/22 Unknown History hydroxyzine pamoate 50 mg capsule 50 mg PO BID 06/29/22 Unknown History lamotrigine 150 mg tablet 150 mg PO DAILY 06/29/22 Unknown History (Lamictal) metoclopramide HCl 10 mg tablet 10 mg PO Q6H PRN nausea and 01/02/24 Unknown Rx (Reglan) vomiting #30 tabs sucralfate 100 mg/mL oral 10 ml PO BID #400 mL 01/02/24 Unknown Rx suspension (Carafate) Allergy/AdvReac Type Severity Reaction Status Date / Time promethazine HCl (From Allergy Intermediate Other Verified 01/02/24 11:09 Phenergan) clindamycin Allergy Anaphylaxis Verified 01/02/24 11:09 quetiapine (From Seroquel) Allergy Other Verified 01/02/24 11:09 alprazolam (From Xanax) AdvReac Other Verified 01/02/24 11:09 doxepin AdvReac Other Verified 01/02/24 11:09 trazodone AdvReac Other Verified 01/02/24 11:09 Social History Smoking Status: Current every day smoker tobacco type: e-cigarettes ROS ROS ED ROS Narrative Constitutional: Denies any fevers, chills, headaches, lightheadedness, dizziness Eyes: Denies change in vision double vision blurry vision Cardiovascular: Denies chest pain or palpitations Respiratory: Denies coughing wheezing shortness of breath Abdomen: Denies abdominal pain nausea vomit diarrhea : Denies any urinary symptoms Neurological: Denies numbness, weakness, tingling Psychiatric: Complains of anxiety, denies any suicidal or homicidal ideations Musculoskeletal: Denies back pain Skin: Denies rashes or lesions EXAM Physical Exam Narrative Exam Narrative: General: Patient lying in bed rest comfortably was tearful Head: Atraumatic, normocephalic Eyes: PERRL bilaterally, EOMI bilaterally, no conjunctival injection noted Neck: Soft, supple, trachea midline Cardiovascular: Regular rate and rhythm no murmurs gallops rubs noted Respiratory: Clear to auscultation bilaterally Abdomen: Soft, nondistended, no tenderness palpation Extremities: +5/5 strength noted in the bilateral upper and lower extremities, no pedal edema neuroexam Neurological: Patient following commands knew that she was at [facility] year is 2023 Skin: Warm, dry, intact Const Vital Signs: 05/29/24 12:19 05/29/24 13:18 05/29/24 14:00 Temperature 98.0 F Temperature Source Temporal Pulse Rate 87 82 79 Respiratory Rate 24 H 16 22 H Blood Pressure 132/97 H 130/74 H 124/85 H Blood Pressure Mean 108 92 98 Pulse Ox 96 96 96 Oxygen Delivery Method Room Air Room Air Room Air MDM MDM MDM Narrative Medical decision making narrative: Patient is a 34-year-old female who presented to the emergency department the chief complaint of anxiety. Patient will be given Ativan here and then be reevaluated. Patient is EKG reviewed shows sinus rhythm rate of 79 bpm. On reevaluation the patient she states that she feels better she would like to go home. Once again the patient reiterated that she does not have any suicidal homicidal ideations. She states that she will follow-up with her counselor and her psychiatrist outpatient setting. She was encouraged to return with worsening symptoms or any other concerns. All question concerns answered she is discharged home in stable condition Discharge Plan Triage Chief Complaint: Anxiety ED Provider: Randy Lindsey Dx/Rx/DC Orders Clinical Impression: Anxiety Instructions: ED Anxiety Reaction Prescriptions: No Action lamotrigine [Lamictal] 150 mg Tablet 150 mg PO DAILY hydroxyzine pamoate 50 mg capsule 50 mg PO BID Rx Instructions: 1 WHEN HOME FROM WORK 1 BEFORE BED amitriptyline 25 mg tablet 50 mg PO QHS gabapentin 800 mg tablet 800 mg PO QHS baclofen 10 mg tablet 10 mg PO PRN PRN (Reason: Pain) ferrous sulfate [FeroSul] 325 mg (65 mg iron) tablet 325 mg PO DAILY Patient Comments: TAKE 1 TABLET BY MOUTH ONCE DAILY WITH BREAKFAST buprenorphine-naloxone 8-2 mg film 1 film sublingual DAILY metoclopramide HCl [Reglan] 10 mg tablet 10 mg PO Q6H PRN (Reason: nausea and vomiting) Qty: 30 0RF sucralfate [Carafate] 100 mg/mL suspension 10 ml PO BID Qty: 400 0RF Primary Care Provider: Ermias Vogel Referrals: Ermias Vogel MD [Primary Care Provider] - Activity Restrictions/Additional Instructions: Follow-up with your counselor and your psychiatrist in the outpatient setting. Return for suicidal homicidal ideations or any other concerns. Follow-up with your primary care physician in the outpatient setting. Print Language: Belarusian Disposition Disposition: Home, Self Care
[2024-05-29 14:00] VITALS: BP 124/85; PULSE 79; RESP 22; O2SAT 96
[2024-05-29] MEDS: Acetaminophen 500 MG Tablet 1000 MG PO (14:29)
[2024-05-29 14:31] VITALS: BP 133/79; PULSE 75; RESP 18; TEMP 36.8; O2SAT 97
== END 2024-05-29 14:35 | disposition home or self-care (01) ==
PROVIDERS: Emergency Provider Emergency Medicine; PCP Family Medicine; Visit Provider Emergency Medicine
DX: F41.9 Anxiety disorder, unspecified (principal); F60.3 Borderline personality disorder; F31.9 Bipolar disorder, unspecified; F17.210 Nicotine dependence, cigarettes, uncomplicated; F90.9 Attention-deficit hyperactivity disorder, unspecified type; F43.10 Post-traumatic stress disorder, unspecified
CPT/HCPCS: 93005; 99283

== ENCOUNTER 2025-05-05 09:29 | Emergency (ER) | payer OTHER, SELFPAY ==
[2025-05-05 09:29] VITALS: BP 131/89; PULSE 77; RESP 16; TEMP 36; O2SAT 99; BMI 31.0
--- NOTE | 2025-05-05 11:13 | EX.ED.VIS.HA ---
HPI History of Present Illness Chief Complaint: Headache Informant: patient Narrative Narrative: Patient is a 35-year-old female with history of drug abuse, fibromyalgia, tension headaches and anxiety presenting with worsening headache. Patient states she developed a dull headache yesterday that worsened throughout the night. States it peaked around 2:30 AM and stayed constant since. She states it is worse on the right side of her head and down to her right neck. No she has some mild discomfort behind her right eye and it feels better when she closes her eye but the eye itself does not hurt and she denies any light sensitivity. She tried taking her home baclofen with no relief as well as Excedrin, dual action ibuprofen and Tylenol. She came in for further treatment. No she has had migraine cocktails in the past but states that she does not want Compazine as that has caused her to be incredibly anxious. She has some chronic nausea for which she takes Zofran and is not sure if she is nauseous from her chronic nausea or associated headache. She denies any vomiting. Denies any fever or chills. Denies any abdominal pain. Does have a history of tubal ligation is not concerned for . Denies any urinary symptoms. No other complaints or concerns at this time. [facility] Medical History Scoliosis Restless leg syndrome History of bulimia History of ADHD Methamphetamine abuse in remission Opiate use Borderline personality disorder PTSD (post-traumatic stress disorder) Generalized anxiety disorder Bipolar disorder Epilepsy New onset seizure Home Medications ?Medication ?Instructions ?Recorded ?Last Taken ?Type amitriptyline 25 mg tablet 50 mg PO QHS 06/29/22 Unknown History baclofen 10 mg tablet 10 mg PO PRN PRN Pain 06/29/22 Unknown History buprenorphine 8 mg-naloxone 2 mg 1 film sublingual DAILY 06/29/22 Unknown History sublingual film ferrous sulfate 325 mg (65 mg 325 mg PO DAILY 06/29/22 Unknown History iron) tablet (FeroSul) gabapentin 800 mg tablet 800 mg PO QHS 06/29/22 Unknown History hydroxyzine pamoate 50 mg capsule 50 mg PO BID 06/29/22 Unknown History lamotrigine 150 mg tablet 150 mg PO DAILY 06/29/22 Unknown History (Lamictal) metoclopramide HCl 10 mg tablet 10 mg PO Q6H PRN nausea and 01/02/24 Unknown Rx (Reglan) vomiting #30 tabs sucralfate 100 mg/mL oral 10 ml PO BID #400 mL 01/02/24 Unknown Rx suspension (Carafate) metoclopramide HCl 10 mg tablet 10 mg PO Q8H PRN nausea and 05/05/25 Unknown Rx (Reglan) vomiting #20 tabs Allergy/AdvReac Type Severity Reaction Status Date / Time promethazine HCl (From Allergy Intermediate Other Verified 05/05/25 09:31 Phenergan) clindamycin Allergy Anaphylaxis Verified 05/05/25 09:31 quetiapine (From Seroquel) Allergy Other Verified 05/05/25 09:31 alprazolam (From Xanax) AdvReac Other Verified 05/05/25 09:31 doxepin AdvReac Other Verified 05/05/25 09:31 trazodone AdvReac Other Verified 05/05/25 09:31 Social History Smoking Status: Current every day smoker tobacco type: e-cigarettes ROS ROS ED Constitutional Constitutional ED: Denies chills or fever(s) Eyes Eyes: Reports other Details: Vague discomfort to the right eye ; Denies blurry vision or change in vision ENT ENT ED: Denies ear pain, rhinorrhea or sore throat Cardiovascular Cardiovascular: Denies chest pain Respiratory/Chest Respiratory/Chest: Denies cough or dyspnea Gastrointestinal Gastrointestinal: Reports nausea; Denies abdominal pain or vomiting Genitourinary Genitourinary ED: Denies dysuria or urinary frequency Musculoskeletal Musculoskeletal: Reports neck pain; Denies arthralgias or myalgias Integumentary Denies rash Neurologic Neurologic: Reports headache(s); Denies paresthesias or weakness Hematologic/Lymphatic Hematologic/Lymphatic: Denies easy bleeding or easy bruising EXAM Physical Exam Const Vital Signs: 05/05/25 09:29 05/05/25 11:29 Temperature 96.8 F L Temperature Source Temporal Pulse Rate 77 63 Respiratory Rate 16 18 Blood Pressure 131/89 H 129/86 H Blood Pressure Mean 103 100 Pulse Ox 99 98 Oxygen Delivery Method Room Air Room Air Positive well nourished and well developed General Appearance ED: well developed and NAD HEENT Reports normocephalic, TM's clear and moist mucous membranes atraumatic Tympanic Membrane ED: Yes TM's clear Eyes PERRL Neck supple and no meningeal signs Neck Narrative: Mild tenderness to the right cervical musculature and trapezius. No overlying skin changes. No torticollis present. Resp normal respiratory effort and clear to auscultation bilaterally Cardio regular rate and regular rhythm GI non-tender Extremity normal to inspection and full ROM General Extremety ED: Negative for edema General Extremity: Negative for edema Neuro oriented x3, CN's II-XII intact bilaterally and no sensory deficits noted Sensorium / Orientation: awake Coordination / Balance: [id number] test normal Motor Exam: strength 5/5 throughout Psych mental status grossly normal Skin Lesions: no lesions Rashes: no rashes MDM MDM MDM Narrative Medical decision making narrative: Patient evaluated for worsening headache. Differential includes tension headache versus migraine headache. She is not have a thunderclap headache suspicion for subarachnoid hemorrhage. She has normal neurologic exam. Do not think she requires any neuroimaging at this time. Will give IV Toradol, Reglan and fluids and reevaluate. Patient says she feels much better after receiving medications. Will be discharged home. Will prescribe a course of Reglan. Given return precautions. Discharge Plan Triage Chief Complaint: Headache ED Provider: Caroline Bryant Dx/Rx/DC Orders Clinical Impression: Headache, Nausea Instructions: ED Headache Unspecified Prescriptions: New metoclopramide HCl [Reglan] 10 mg tablet 10 mg PO Q8H PRN (Reason: nausea and vomiting) Qty: 20 0RF No Action lamotrigine [Lamictal] 150 mg Tablet 150 mg PO DAILY hydroxyzine pamoate 50 mg capsule 50 mg PO BID Rx Instructions: 1 WHEN HOME FROM WORK 1 BEFORE BED amitriptyline 25 mg tablet 50 mg PO QHS gabapentin 800 mg tablet 800 mg PO QHS baclofen 10 mg tablet 10 mg PO PRN PRN (Reason: Pain) ferrous sulfate [FeroSul] 325 mg (65 mg iron) tablet 325 mg PO DAILY Patient Comments: TAKE 1 TABLET BY MOUTH ONCE DAILY WITH BREAKFAST buprenorphine-naloxone 8-2 mg film 1 film sublingual DAILY metoclopramide HCl [Reglan] 10 mg tablet 10 mg PO Q6H PRN (Reason: nausea and vomiting) Qty: 30 0RF sucralfate [Carafate] 100 mg/mL suspension 10 ml PO BID Qty: 400 0RF Stand Alone Forms: ED Work / School Excuse Primary Care Provider: Ermias Vogel Referrals: Ermias Vogel MD [Primary Care Provider] - Print Language: Welsh Disposition Disposition: Home, Self Care
[2025-05-05] MEDS: 0.9% Normal Saline (1000mL) 1,000 ML 999 ML IV (11:20)
[2025-05-05 11:29] VITALS: BP 129/86; PULSE 63; RESP 18; O2SAT 98
[2025-05-05 12:43] VITALS: BP 128/67; PULSE 79; RESP 16; TEMP 36.6; O2SAT 98
== END 2025-05-05 13:02 | disposition home or self-care (01) ==
PROVIDERS: Emergency Provider Emergency Medicine; PCP Family Medicine; Visit Provider Emergency Medicine
DX: R51.9 Headache, unspecified (principal); F41.9 Anxiety disorder, unspecified; R11.0 Nausea; F17.290 Nicotine dependence, other tobacco product, uncomplicated; M54.2 Cervicalgia; Z98.51 Tubal ligation status
CPT/HCPCS: 96361; 96374; 96375; 96376; 99282; A4216

== ENCOUNTER 2025-10-27 17:17 | Emergency (ER) | payer OTHER, SELFPAY ==
[2025-10-27 17:18] VITALS: BP 162/98; PULSE 96; RESP 20; TEMP 36.1; O2SAT 100; BMI 32.8
--- NOTE | 2025-10-27 17:53 | EX.ED.DYSGE1 ---
HPI History of Present Illness Chief Complaint: Substance Abuse Narrative Narrative: Chief complaint and HPI: 35-year-old female with past medical history of of hepatitis C, anxiety, fibromyalgia, polysubstance abuse presents for detox from Kratom. Patient states she has been using Kratom daily for the past 6 months. Last used at 3 PM. Patient denies any current polysubstance abuse. She denies any fever, chills, shortness of breath, chest pain abdominal pain, nausea, vomiting. Review of systems: See HPI Medications: As listed on the chart Allergies: As listed on the chart PFSH: Per chart Vital signs: As listed on the chart. Reviewed. Physical exam: Gen: A&O x3, NAD Head: Normocephalic, atraumatic Eyes: No sclera icterus, conjunctiva clear ENT: Moist mucous membranes CV: RRR, no murmurs Resp: Lungs CTA BL, no w/r/c GI: Abd soft, non-distended, non-tender, no r/r/g Musc: Full ROM, no deformity Skin: Warm, dry Neuro: Alert, oriented, grossly intact, sensation intact Psych: Cooperative, appropriate mood and affect [facility] Medical History (Updated 10/27/25 @ 20:[address] Steven Marinelli, DO) Environmental allergies Asthma Scoliosis Restless leg syndrome History of bulimia History of ADHD Methamphetamine abuse in remission Opiate use Borderline personality disorder PTSD (post-traumatic stress disorder) Generalized anxiety disorder Bipolar disorder Epilepsy New onset seizure Home Medications ?Medication ?Instructions ?Recorded ?Last Taken ?Type baclofen 10 mg tablet 10 mg PO PRN PRN Pain 06/29/22 Unknown History lamotrigine 150 mg tablet 200 mg PO DAILY 06/29/22 Unknown History (Lamictal) albuterol sulfate 90 mcg/actuation 2 puff inhalation Q4 PRN wheezing 06/03/25 Unknown History aerosol inhaler gabapentin 600 mg tablet 600 mg PO TID 06/03/25 Unknown History hydroxyzine HCl 50 mg tablet 50 mg PO QHS PRN anxiety 06/03/25 Unknown History lorazepam 1 mg tablet 1 mg PO QDAY PRN anxiety 06/03/25 Unknown History ondansetron 4 mg disintegrating 4 mg PO Q12H PRN nausea and 06/03/25 Unknown History tablet vomiting simvastatin 5 mg tablet 5 mg PO QHS 06/03/25 Unknown History zolpidem 6.25 mg tablet,extended 6.25 mg PO QHS 06/03/25 Unknown History release,multiphase ipratropium bromide 21 mcg (0.03 2 spray intranasal BID-TID PRN 07/02/25 Unknown Rx %) nasal spray postnasal drainage #30 mL pseudoephedrine 60 mg-DM 15 1 tab PO Q4-6H PRN cold symptoms 07/02/25 Unknown Rx mg-guaifenesin 400 mg tablet #20 tabs (Capmist DM) dextroamphetamine-amphetamine ER 1 cap PO DAILY ADHD 10/27/25 Unknown History 25 mg 24hr capsule,extend release Allergy/AdvReac Type Severity Reaction Status Date / Time promethazine HCl (From Allergy Intermediate Other Verified 10/27/25 17:20 Phenergan) clindamycin Allergy Anaphylaxis Verified 10/27/25 17:20 quetiapine (From Seroquel) Allergy Other Verified 10/27/25 17:20 prednisone AdvReac Intermediate Other Verified 10/27/25 17:20 methylprednisolone AdvReac Mild Anxious, Verified 10/27/25 17:20 Agitated alprazolam (From Xanax) AdvReac Other Verified 10/27/25 17:20 doxepin AdvReac Other Verified 10/27/25 17:20 trazodone AdvReac Other Verified 10/27/25 17:20 Family History (Updated 05/20/25 @ 07:27 by Ayse Mcclellan) Other Cancer Diabetes Surgical History (Updated 10/27/25 @ 17:30 by Song Holder) History of laparoscopy History of tubal ligation History of cholecystectomy Social History (Updated 05/20/25 @ 07:27 by Ayse Mcclellan) Smoking Status: Current every day smoker tobacco type: e-cigarettes Electronic Cigarette Use: with nicotine alcohol intake: never substance use type: does not use EXAM Physical Exam Const Vital Signs: 10/27/25 17:18 10/27/25 18:16 10/27/25 19:45 Temperature 96.9 F L Temperature Source Temporal Pulse Rate 96 96 97 Respiratory Rate 20 H 18 18 Blood Pressure 162/98 H Blood Pressure Mean 119 Pulse Ox 100 100 97 Oxygen Delivery Method Room Air Room Air Room Air 10/27/25 20:02 Temperature Temperature Source Pulse Rate 92 Respiratory Rate 16 Blood Pressure 110/80 Blood Pressure Mean 90 Pulse Ox 100 Oxygen Delivery Method MDM MDM MDM Narrative Medical decision making narrative: 35-year-old female with past medical history of of hepatitis C, anxiety, fibromyalgia, polysubstance abuse presents for detox from Kratom. Patient states she has been using Kratom daily for the past 6 months. Last used at 3 PM. Currently denies any symptoms. Differential diagnosis includes but is not limited to Kratom abuse, polysubstance abuse, dehydration, electrolyte abnormality. Patient will warrant admission for detox. NS bolus ordered. Basic labs ordered. CBC without leukocytosis or anemia. CMP unremarkable except for mild AST elevation of 33. Patient has a history of this in the past. Serum negative. Alcohol level unremarkable. Urine drug screen is positive for benzos and cannabis. Plan was to admit the patient for detox from Kratom. Patient states she no longer wants to be admitted for detox. She states that she wants to discharge home. She states she is not ready. Given this is purely a voluntary choice I will respect the patient's wish to discharge her home. I did recommend her going through the detox program however she declined.b Patient was educated return back to ED if she changes her mind at any time. Impression: 1. Polysubstance abuse 2. Originally requesting detox but declined Lab Data Labs: Laboratory Results - last 24 hr 10/27/25 10/27/25 18:05 20:00 WBC 10.6 RBC 4.82 Hgb 13.3 Hct 41.8 MCV 86.7 MCH 27.6 MCHC 31.8 L RDW Std Deviation 39.9 RDW Coeff of Delmi 12.6 Plt Count 335 MPV 9.1 Immature Gran % (Auto) 0.400 Neut % (Auto) 71.1 H Lymph % (Auto) 17.0 L [place] % (Auto) 10.6 H Eos % (Auto) 0.1 Baso % (Auto) 0.8 Absolute Neuts (auto) 7.6 Absolute Lymphs (auto) 1.80 Nucleated RBC % 0 Differential Comment SCANNED Platelet Estimate ADEQUATE Sodium 142 Potassium 4.0 Chloride 105 Carbon Dioxide 23.3 Anion Gap 13 BUN 8 Creatinine 0.78 Estim Creat Clear Calc 95.75 Est GFR (MDRD) Non-Af 102 BUN/Creatinine Ratio 10.3 Glucose 89 Calcium 10.0 Total Bilirubin 0.26 AST 33 H ALT 24 Alkaline Phosphatase 56 Total Protein 8.6 H Albumin 5.2 H Globulin 3.4 Albumin/Globulin Ratio 1.5 Serum , Qual NEGATIVE Urine Opiates Screen NEGATIVE U Buprenorphine Qual NEGATIVE Ur Oxycodone Screen NEGATIVE Urine Methadone Screen NEGATIVE Urine Fentanyl Screen NEGATIVE Ur Barbiturates Screen NEGATIVE Ur Phencyclidine Scrn NEGATIVE Ur Amphetamines Screen NEGATIVE U Benzodiazepines Scrn PRESUMPTIVE POSITIVE Urine Cocaine Screen NEGATIVE U Cannabinoids Screen PRESUMPTIVE POSITIVE Ethyl Alcohol < 10.1 Discharge Plan Triage Chief Complaint: Substance Abuse ED Provider: Steven Marinelli Dx/Rx/DC Orders Clinical Impression: Substance abuse Instructions: ED Drug Abuse Prescriptions: No Action simvastatin 5 mg tablet 5 mg PO QHS lorazepam 1 mg tablet 1 mg PO QDAY PRN (Reason: anxiety) albuterol sulfate 90 mcg/actuation HFA aerosol inhaler 2 puff inhalation Q4 PRN (Reason: wheezing) gabapentin 600 mg tablet 600 mg PO TID ondansetron 4 mg tablet,disintegrating 4 mg PO Q12H PRN (Reason: nausea and vomiting) zolpidem 6.25 mg tablet,ext release multiphase 6.25 mg PO QHS hydroxyzine HCl 50 mg tablet 50 mg PO QHS PRN Capmist DM 60-15-400 mg tablet 1 tab PO Q4-6H PRN (Reason: cold symptoms) Qty: 20 0RF Rx Instructions: do not exceed 4 doses per 24 hrs ipratropium bromide 21 mcg (0.03 %) spray,non-aerosol 2 spray intranasal BID-TID PRN (Reason: postnasal drainage) Qty: 30 0RF Rx Instructions: administer into each nostril lamotrigine [Lamictal] 150 mg Tablet 200 mg PO DAILY baclofen 10 mg tablet 10 mg PO PRN PRN (Reason: Pain) dextroamphetamine-amphetamine 25 mg capsule,extended release 24hr 1 cap PO DAILY Primary Care Provider: Ermias Vogel Referrals: Ermias Vogel MD [Primary Care Provider, Family Practice] - 3-5 Days Activity Restrictions/Additional Instructions: Return back to the emergency department if you change your mind on detox. Follow-up with your primary care physician Print Language: Maltese Disposition Disposition: Home, Self Care
[2025-10-27 18:16] VITALS: PULSE 96; RESP 18; O2SAT 100
[2025-10-27 18:17] LABS: Hematocrit 41.8 % (37-47); Hemoglobin 13.3 g/dL (12.0-15.0); Immature Granulocytes Count 0.040 X10^3/uL (0.0-0.0); Mean Corp Hgb Conc 31.8 g/dL (32-36); Mean Corpuscular Volume 86.7 fL (81-99); NRBC Flagged by Analyzer 0 % (0-5); POSITIVE COUNT YES; RBC Distribution Width CV 12.6 % (11.6-14.6); RBC Distribution Width SD 39.9 fl (35.1-43.9); Red Blood Count 4.82 M/mm3 (4.2-5.4); White Blood Count 10.6 K/mm3 (4.4-11.0)
[2025-10-27 18:23] LABS: Differential Indicated SCAN CRITERIA MET
[2025-10-27 18:54] LABS: Internal QC Validated? YES +Cl - CLEAR BKGD; Pregnancy, Serum, hCG Quali. NEGATIVE Negative
[2025-10-27] MEDS: 0.9% Normal Saline (1000mL) 1,000 ML 1000 ML IV (19:04)
[2025-10-27 19:07] LABS: AST(SGOT) 33 U/L (<=31); Alanine Aminotransfer ALT/SGPT 24 U/L (<=34); Albumin, Serum 5.2 g/dL (3.5-5.0); Alcohol, Blood (Medical)-Serum < 10.1 mg/dL (<=10.0); Alkaline Phosphatase 56 U/L (35-104); Anion Gap 13 (7-18); BUN 8 mg/dL (4-19); BUN/Creat Ratio 10.3 RATIO (10-20); Calcium,Total 10.0 mg/dL (7.6-11.0); Carbon Dioxide 23.3 mmol/L (20.0-29.0); Chloride 105 mmol/L (96-106); Estimated Creatinine Clearance 95.75 ml/min (50-250); Globulin 3.4 g/dL (2.2-4.2); Glucose 89 mg/dL (70-99); Potassium 4.0 mmol/L (3.5-5.1)
[2025-10-27 19:35] LABS: Platelet Count 335 K/mm3 (150-450)
[2025-10-27 19:36] LABS: Differential Comment SCANNED; Mean Platelet Vol. 9.1 fl (6.2-12.0)
[2025-10-27 19:45] VITALS: PULSE 97; RESP 18; O2SAT 97
[2025-10-27 20:02] VITALS: BP 110/80; PULSE 92; RESP 16; O2SAT 100
--- NOTE | 2025-10-27 20:15 | CM.ED ---
Addendum entered by Dionna Schulz 10/27/25 20:50: Social Work Patient has changed her mind about admitting for detox. Patient states she just doesn't feel that she is ready at this time. SW reminded patient that she is able to enter the program whenever she feels ready. SW offered resources for outpatient substance counseling or services. Patient declined same stating she was already connected with [facility]. No further needs at this time. ASHLYN Polanco, LANCE Original Note: Social Work Patient presented to ED requesting to enter [facility] program for detox from [facility]. Treatment navigator notified. ASHLYN Polanco, DICER OPERATOR
--- OUTSIDE RECORDS SUMMARY | 2025-10-27 20:30 | XMS RPT_ITS | CCD ---
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 Unavailable Unavailable JOCELYNE, ELLA N. Unavailable Unavailable JOCELYNE, ELLA N. Unavailable Unavailable JOCELYNE, ELLA N. Unavailable Unavailable JOCELYNE, ELLA N. Unavailable Unavailable JOCELYNE, ELLA N. Unavailable Unavailable JOCELYNE, ELLA N. Unavailable Unavailable VANI HOROWITZ Admitting Unavailable VANI HOROWITZ Attending Unavailable ERMIAS LOCKWOOD MD Referring Unavailable VANI HOROWITZ Primary Care Unavailable ERMIAS LOCKWOOD MD Consulting Unavailable HABALISON MADDOX Admitting Unavailable ALISON MONTANO M Attending Unavailable ERMIAS LOCKWOOD MD Referring Unavailable ALISON MONTANO Primary Care Unavailable ERMIAS LOCKWOOD MD Consulting Unavailable RADHA RUTLEDGEOTHY Admitting Unavailable FACUNDO RUTLEDGE DO Attending Unavailable FACUNDO RUTLEDGE DO Primary Care Unavailable ERMIAS LOCKWOOD MD Consulting Unavailable ERMIAS LOCKWOOD MD Referring Unavailable FABIAN JARVIS Admitting Unavailable FABIAN JARVIS Attending Unavailable FABIAN JARVIS Primary Care Unavailable ERMIAS LOCKWOOD MD Consulting Unavailable Jocelyne, Ella Clover Primary Care Provider [phone] Ermias Lockwood MD Primary Care Provider [phone] Ermias Lockwood MD Primary Care Provider Ermias Lockwood MD Primary Care Provider [phone] Ermias Lockwood MD Primary Care Provider [phone] JASPREET MD, ERMIAS A Primary Care Physician LELIA EDWARDS Attending Unavailable JASPREET CORDERO, ERMIAS A Primary Care Unavailable Jaspreet CORDERO, Ermias A Primary Care Provider Ermias Lockwood MD A Primary Care Provider Parish GLASS ROLLING MACHINE OPERATOR.STEEL WHEEL ENGRAVER, Franchesca Unavailable Edith Salguero PA-C Unavailable Ermias Lockwood MD A Primary Care Provider Jaspreet CORDERO, Ermias Mckeon Primary Care Provider [place] GLASS ROLLING MACHINE OPERATOR.STEEL WHEEL ENGRAVER, Franchesca Unavailable Edith Salguero PA-C Unavailable Jaspreet, Ermias Primary Care Unavailable Jaspreet, Ermias Referring Unavailable Junaid Carmichael Attending Unavailable Jaspreet, Ermias Primary Care Unavailable Jaspreet, Erimas Referring Unavailable Junaid Carmichael Attending Unavailable Jaspreet, Ermias Primary Care Unavailable Caroline Bryant Attending Unavailable Jaspreet, Ermias Primary Care Unavailable Jaspreet, Ermias Referring Unavailable Filipe Allen Attending Unavailable JASPREET, ERMIAS A Primary Care Unavailable JASPREET, ERMIAS A Primary Care Unavailable FRANCHESCA ALARCON Attending Unavailable EDITH SALGUERO Referring Unavailable JASPREET, ERMIAS A Primary Care Unavailable EDITH SALGUERO Attending Unavailable JASPREET, ERMIAS A Primary Care Unavailable JASPREET, ERMIAS A Primary Care Unavailable IRWIN BLOUNT Attending Unavailable SELF Referring Unavailable MINNA DIEZ Attending Unavailable JASPREET, ERMIAS A Primary Care Unavailable NELA NOEL Attending Unavailable JASPREET, ERMIAS A Primary Care Unavailable JASPREET, ERMIAS A Primary Care Unavailable JAVIER REYES Attending Unamarissa yip SELF Referring Unavailable JASPREET, ERMIAS A Primary Care Unavailable JASPREET, ERMIAS A Primary Care Unavailable JASPREET, ERMIAS A Attending Unavailable JASPREET, ERMIAS A Primary Care Unavailable JASPREET, ERMIAS A Primary Care Unavailable JASPREET, ERMIAS A Referring Unavailable JASPREET, ERMIAS A Primary Care Unavailable JASPREET, ERMIAS A Attending Unavailable IRWIN BLOUNT Attending Unavailable JASPREET, ERMIAS A Primary Care Unavailable CRISTHIAN FRYE Attending Unavailable JASPREET, ERMIAS A Primary Care Unavailable ABEREGG, KRISLYN P Attending Unavailable ERMIAS LOCKWOOD Primary Care Unavailable ERMIAS LOCKWOOD Primary Care Unavailable ERMIAS LOCKWOOD Primary Care Unavailable SELF Referring Unavailable CRISTHIAN FRYE Attending Unavailable ERMIAS LOCKWOOD Primary Care Unavailable IRWIN BLOUNT Attending Unavailable ERMIAS LOCKWOOD Primary Care Unavailable Allergies Allergy Classification Reported Allergen(s) Allergy Type Date of Onset Reaction(s) Facility Benzodiazepines (3 sources) ALPRAZolam Drug Allergy 09-08-20 14 Unknown [facility] Doxycycline (2 sources) Doxycycline Drug Allergy 04-16-20 24 Other: See Comments [facility] Lincosamides (antibiotic) (3 sources) Clindamycin Drug Allergy 10-23-20 13 Anaphylaxis [facility] Mirtazapine (3 sources) Mirtazapine Drug Allergy 11-13-19 15 Other: See Comments [facility] Promethazine (3 sources) Promethazine Drug Allergy 10-23-20 13 Mental Status Change [facility] Serotonin Reuptake Inhibitors (SSRIs) (6 sources) Citalopram Drug Allergy 09-08-20 14 Unknown, Other: See Comments [facility] Work Phone: venlafaxine (3 sources) venlafaxine Drug Allergy 09-08-20 14 Unknown [facility] (20 sources) clindamycin; Translations: [CLINDAMYCIN] Drug Allergy 10-23-20 13 Anaphylaxis [facility] Repository (3 sources) promethazine; Translations: [PROMETHAZINE] Drug Allergy 02-20-20 18 mood changes [facility] Repository (1 source) diphenhydrAMINE Drug Allergy [facility] Repository (20 sources) ALPRAZolam; Translations: [alprazolam] Drug Allergy 09-08-20 14 Unknown [facility] Work Phone: (20 sources) Citalopram; Translations: [CITALOPRAM HYDROBROMIDE] Drug Allergy 09-08-20 14 Unknown [facility] Work Phone: (20 sources) Mirtazapine; Translations: [MIRTAZAPINE] Drug Allergy 11-13-19 15 Other: See Comments [facility] Work Phone: (20 sources) PARoxetine; Translations: [PAROXETINE HCL] Drug Allergy 09-08-20 14 Other: See Comments [facility] Work Phone: (20 sources) Promethazine; Translations: [PROMETHAZINE HCL] Drug Allergy 10-23-20 13 Mental Status Change [facility] Work Phone: (20 sources) venlafaxine; Translations: [VENLAFAXINE ANALOGUES] Drug Allergy 09-08-20 14 Unknown [facility] Work Phone: (20 sources) SEASONAL [Other] Propensity to adverse reactions 04-13-20 07 Unknown [facility] Work Phone: (1 source) diphenhydrAMINE; Translations: [diphenhydramine] Drug Allergy [facility] (20 sources) Doxycycline; Translations: [DOXYCYCLINE] Drug Allergy 04-16-20 24 Other: See Comments [facility] (1 source) ALPRAZolam Drug Allergy 07-02-20 25 [facility] Repository (1 source) Doxepin Drug Allergy 07-02-20 25 [facility] Repository (1 source) methylPREDNISolone Drug Allergy 07-02-20 25 [facility] Repository (1 source) predniSONE Drug Allergy 07-02-20 25 [facility] Repository (1 source) Promethazine Drug Allergy 07-02-20 25 [facility] Repository (1 source) QUEtiapine Drug Allergy 07-02-20 25 [facility] Repository (1 source) traZODone Drug Allergy 07-02-20 25 [facility] Repository Medications Current Medications Medication Drug Class(es) Dates Sig (Normalized) Sig (Original) [id number] 200 actuat albuterol 0.09 mg/actuat metered dose inhaler (20 sources) beta2-Adrenergic Agonist Start: 04-14-2024 take 2 puff(s) by inhalation every four hours as needed for wheezing albuterol HFA (PROVENTIL HFA, VENTOLIN HFA) 90 mcg/actuation inhaler Indications: Sinobronchitis Inhale 2 Puffs as instructed every 4 hours as needed for wheezing/shortness of breath. 1 Each 04/14/2024 Active Start: 11-11-2020 End: 07-24-2025 take 2 puff(s) by inhalation every four hours as needed for wheezing albuterol HFA (VENTOLIN HFA) 90 mcg/actuation inhaler Inhale 2 puffs as instructed every 4 hours as needed for wheezing/shortness of breath. 18 g 1 05/22/2025 Active Comment on above: Inhale 2 Puffs as in structed every 4 hours as needed for Wheezing/Shortness of Breath. amoxicillin 875 mg / clavulanate 125 mg oral tablet (2 sources) Penicillin-class Antibacterial Start: End: take 1 tablet by mouth twice daily amoxicillin-clavulani c acid (AUGMENTIN) 875-125 mg per tablet Indications: Sinobronchitis Take 1 tablet by mouth twice daily for 7 days. 14 tablet 0 07/17/2022 07/24/2022 Active Comment on above: Take 1 tablet by robin th twice daily for 7 days. ascorbic acid 500 mg oral tablet (20 sources) Vitamin C Start: End: take 1 tablet by mouth once daily ascorbic acid, vitamin C, (VITAMIN C) 500 mg tablet Take 1 tablet by mouth once daily. 30 tablet 11 01/16/2025 01/16/2026 Active Comment on above: Take 1 tablet by robin th once daily. baclofen 10 mg oral tablet (20 sources) gamma-Aminobutyric Acid-ergic Agonist Start: End: take 1 tablet by mouth twice daily baclofen 10 mg tablet Indications: Spinal stenosis of lumbar region, unspecified whether neurogenic claudication present , Muscle spasm of back Take 1 tablet by mouth two times a day. 180 tablet 1 05/11/2025 08/09/2025 Active Start: 06-13-2022 End: 04-07-2024 take 1 tablet by mouth twice daily baclofen (LIORESAL) 10 mg tablet Take 1 tablet by mouth twice daily. 60 tablet 1 12/19/2022 02/12/2023 Discontinued Start: 05-15-2022 take 1 tablet by robin th twice daily baclofen (LIORESAL) 10 mg tablet Take 1 tablet by mouth twice daily. 60 tablet 0 05/15/2022 Active Start: 03-15-2022 End: 05-11-2022 baclofen (LIORESAL) 10 mg ta blet Take 10 mg by mouth as needed. 0 04/14/2022 05/11/2022 Discontinued Start: 02-19-2018 take 1 tablet by robin three times daily as needed baclofen (LIORESAL) 10 MG tablet Take 1 (one) tablet (10 mg total) by mouth 3 (three) times a day as needed Body aches. 20 tablet 0 02/19/2018 Active Comment on above: Take 1 tablet by robin twice daily. Take 10 mg by mouth as needed. Take 1 tablet by robin two times a day. cefadroxil 500 mg oral capsule (3 sources) Cephalosporin Antibacterial Start: 025 End: take 1 capsule by mouth twice daily cefADROxil (DURICEF) 500 mg capsule Take 1 capsule by mouth two times a day for 10 days. 20 capsule 11/07/2024 11/17/2024 Active cefdinir 300 mg oral capsule (1 source) Cephalosporin Antibacterial Start: End: take 1 capsule by mouth twice daily cefdinir (OMNICEF) 300 mg capsule Take 1 capsule by mouth twice daily for 7 days. 14 capsule 0 07/21/2022 07/28/2022 Active Comment on above: Take 1 capsule by mo [facility] twice daily for 7 days. clonazePAM 0.5 mg oral tablet (2 sources) Benzodiazepine Start: 019 clonazePAM 0.5 mg oral tablet Dose : 0.5 mg = 1 tab(s), Oral, BID, 0 Refill(s) Start Date: 02/05/19 Status: Ordered cloNIDine hydrochloride 0.1 mg oral tablet (1 source) Central alpha-2 Adrenergic Agonist Start: 018 take 1 tablet by mouth twice daily cloNIDine HCl (CATAPRES) 0.1 MG tablet Take 1 (one) tablet (0.1 mg total) by mouth 2 (two) times a day. 60 tablet 2 03/20/2018 Active doxycycline hyclate 100 mg oral tablet (5 sources) Tetracycline-class Drug Start: 024 End: 024 take 1 tablet by mouth twice daily doxycycline (VIBRA-TABS) 100 mg tablet Indications: Sinobronchitis Take 1 tablet by mouth two times a day for 5 days. 10 tablet 0 04/14/2024 04/19/2024 Active fluconazole 150 mg oral tablet (1 source) Azole Antifungal Start: End: take 1 tablet by mouth once daily fluconazole (DIFLUCAN) 150 mg tablet Take 1 tablet by mouth once daily for 1 day. 1 tablet 11/18/2024 11/19/2024 Active hydrOXYzine hydrochloride 50 mg oral tablet (20 sources) Antihistamine Start: take 1 tablet by mouth three times daily hydrOXYzine HCl (ATARAX) 50 mg tablet Take 1 tablet by mouth three times daily. 90 tablet 5 01/07/2021 Active Comment on above: Take 1 tablet by robin th three times daily. metroNIDAZOLE 500 mg oral tablet (3 sources) Nitroimidazole Antimicrobial Start: End: take 1 tablet by mouth twice daily metroNIDAZOLE (FLAGYL) 500 mg tablet Take 1 tablet by mouth twice daily for 7 days. 14 tablet 0 09/20/2022 09/27/2022 Active Comment on above: Take 1 tablet by robin th twice daily for 7 days. miconazole nitrate 20 mg/ml vaginal cream (1 source) Azole Antifungal Start: End: miconazole (MONISTAT 7) 2 % vaginal cream Indications: Ethan glabrata infection Use 1 Applicator vaginally daily at bedtime for 7 days. 45 g 1 10/12/2022 10/19/2022 Active Comment on above: Use 1 Applicator vag inally daily at bedtime for 7 days. omeprazole 40 mg delayed release oral capsule (20 sources) Proton Pump Inhibitor Start: omeprazole (PRILOSEC) 40 mg capsule Take one tab 30 min prior to breakfast and dinner. 60 capsule 5 01/19/2024 Active Start: 01-01-2023 End: 01-19-2024 take 1 capsule by mouth once daily omeprazole (PRILOSEC) 40 mg capsule Take 1 capsule by mouth once daily. 30 capsule 3 01/01/2023 01/19/2024 Discontinued End: 07-12-2021 Omeprazole 20 mg TbEC Take b y mouth. 07/12/2021 Discontinued Comment on above: Take 1 capsule by mo [facility] once daily. Take one tab 30 min prior to breakfast and dinner. ondansetron 4 mg disintegrating oral tablet (20 sources) Serotonin-3 Receptor Antagonist Start: 01-21-20 End: 03-27-20 take 1 tablet by mouth every twelve hours as needed ondansetron orally disintegrating (ZOFRAN ODT) 4 mg disintegrating tablet Take 1 tablet by mouth every 12 hours as needed for nausea/vomiting. 20 tablet 3 03/27/2025 Active Start: 01-19-2024 End: 01-16-2025 take 1 tablet by mouth every twelve hours as needed ondansetron orally disintegrating (ZOFRAN ODT) 4 mg disintegrating tablet Take 1 tablet by mouth every 12 hours as needed for nausea/vomiting. 60 tablet 1 09/08/2024 01/16/2025 Discontinued Start: 11-27-2023 End: 01-19-2024 take 1 tablet by mouth every six hours as needed for nausea ondansetron orally disintegrating (ZOFRAN ODT) 4 mg disintegrating tablet Indications: Nausea and vomiting, unspecified vomiting type Take 1 tablet by mouth every 6 hours as needed for nausea/vomiting. 30 tablet 0 11/27/2023 01/19/2024 Discontinued Start: 02-19-2018 take 1 tablet by [facility] every eight hours as needed ondansetron (ZOFRAN ODT) 4 MG disintegrating tablet Dissolve 1 (one) tablet (4 mg total) on top of tongue every 8 (eight) hours as needed for nausea. 20 tablet 0 02/19/2018 Active Comment on above: Take 1 tablet by [facility] every 6 hours as needed for nausea/vomiting. Take 1 tablet by [facility] every 12 hours as needed for nausea/vomiting. prochlorperazine 25 mg rectal suppository (1 source) Phenothiazine Start: 2017 take 25 mg rectal route every eight hours as needed prochlorperazine (COMPAZINE) 25 MG suppository Insert 1 (one) suppository (25 mg total) into the rectum every 8 (eight) hours as needed for nausea. 6 suppository 0 06/21/2018 Active rOPINIRole 0.5 mg oral tablet (2 sources) Nonergot Dopamine Agonist Start: 2018 rOPINIRole 0.5 mg oral tablet Dose : 0.5 mg = 1 tab(s), Oral, TID, # 270 tab(s), 0 Refill(s) Start Date: 02/05/19 Status: Ordered take 1 tablet by mouth three radha es daily rOPINIRole (REQUIP) 1 MG tablet Take 1 mg by mouth 3 (three) times a day. 0 Active simvastatin 5 mg oral tablet (20 sources) HMG-CoA Reductase Inhibitor Start: 03-14-2024 End: 12-12-2024 take 1 tablet by mouth once daily at bedtime simvastatin (ZOCOR) 5 mg tablet Indications: Hyperlipidemia, mixed Take 1 tablet by mouth daily at bedtime. For cholesterols 90 tablet 3 12/12/2024 Active sucralfate 100 mg/ml oral suspension (20 sources) Aluminum Complex Start: 08-18-2024 End: 08-25-2024 take 10 mL by mouth at bedtime sucralfate (CARAFATE) 100 mg/mL suspension Take 10 mL by mouth before meals and at bedtime for 7 days. (560cc=2wks) 280 mL 08/18/2024 08/25/2024 Active Start: 01-19-2024 End: 08-19-2024 sucralfate (CARAFATE) 100 mg /mL suspension Take 10 ml prior to lunch and bed. 600 mL 5 01/19/2024 08/19/2024 Discontinued Start: 01-02-2024 End: 01-19-2024 take 1 g by mouth twice daily sucralfate (CARAFATE) 10 0 mg/mL suspension Take 1 g by mouth two times a day. 0 01/02/2024 01/19/2024 Discontinued Comment on above: Take 10 ml prior to lunch and bed. Take 1 g by mouth tw o times a day. tranexamic acid 650 mg oral tablet (20 sources) Antifibrinolytic Agent Start: 04-06-2022 End: 10-12-2022 tranexamic acid (LYSTEDA) 650 mg tablet Take 2 tablets 3 times a day as needed for heavy bleeding up to 5 days. 30 tablet 11 04/06/2022 10/12/2022 Discontinued Comment on above: Take 2 tablets 3 radha es a day as needed for heavy bleeding up to 5 days. Completed/Discontinued Medications Medication Drug Class(es) Dates Sig (Normalized) Sig (Original) amitriptyline hydrochloride 50 mg oral tablet (20 sources) Tricyclic Antidepressant Start: 07-12-2022 End: 01-01-2023 take 1 tablet by mouth once daily amitriptyline (ELAVIL) 50 mg tablet Take 1 tablet by mouth once daily. 0 07/12/2022 01/01/2023 Discontinued Start: 04-18-2022 End: 07-12-2022 take 1 tablet by mouth once daily amitriptyline (ELAVIL) 25 mg tablet Take 25 mg by mouth once daily. 0 04/18/2022 07/12/2022 Discontinued Comment on above: Take 25 mg by mouth once daily. Take 1 tablet by robin th once daily. azithromycin 500 mg oral tablet (15 sources) Macrolide Antimicrobial Start: 04-16-20 End: 08-19-20 take 1 tablet by mouth once daily azithromycin (ZITHROMAX) 500 mg tablet Take 1 tablet by mouth once daily. 10 tablet 1 04/16/2024 08/19/2024 Discontinued benzonatate 200 mg oral capsule (20 sources) Non-narcotic Antitussive Start: 04-16-20 End: 08-19-20 take 1 capsule by mouth every eight hours as needed Benzonatate 200 mg capsule Take 1 capsule by mouth three times a day as needed. 45 capsule 1 04/16/2024 08/19/2024 Discontinued Start: 04-04-2024 End: 04-16-2024 take 1 capsule by mouth every eight hours as needed benzonatate (TESSALON PERLE) 100 mg capsule Take 1 capsule by mouth three times a day as needed. 21 capsule 04/04/2024 04/16/2024 Discontinued Start: 10-24-2023 End: 11-27-2023 take 2 capsules by mouth every eight hours as needed benzonatate (TESSALON PERLES) 100 mg capsule Take 2 capsules by mouth three times a day as needed. 30 capsule 10/24/2023 11/27/2023 Discontinued 1.5 ml buprenorphine 200 mg/ml prefilled syringe (14 sources) Partial Opioid Agonist Start: 05-28-2023 End: 11-27-2023 inject 300 mg by subcutaneous injection every month SUBLOCADE 300 mg/1.5 mL injection Inject 300 mg subcutaneously once every month. Other 05/28/2023 11/27/2023 Discontinued Start: 03-01-2015 End: 04-06-2022 buprenorphine SL (SUBUTEX) 8 mg subl 12 mg. 03/01/2015 04/06/2022 Discontinued End: 03-27-2025 buprenorphine (BRIXADI SUBCU TANEOUS) Inject subcutaneously. 03/27/2025 Discontinued buprenorphine (B RIXADI SUBCUTANEOUS) Inject subcutaneously. Active Comment on above: 12 mg. Inject 300 mg subcut aneously once every month. buprenorphine 8 mg / naloxone 2 mg sublingual film (20 sources) Partial Opioid Agonist, Opioid Antagonist Start: 03-24-2022 End: 07-13-2023 buprenorphine-naloxone (SUBOXONE) 8-[address] 1 & 1/2 (ONE & ONE-HALF) STRIPS UNDER THE TONGUE ONCE DAILY 03/24/2022 07/13/2023 Discontinued Start: 06-21-2018 buprenorphine- nalOXone (SUBOXONE) 8-2 mg tablet Indications: Uncomplicated opioid dependence (HCC) , Encounter for long-term opiate analgesic use Place 1 (one) tablet under the tongue once daily 5 day supply F11.2 for 5 days. 5 tablet 0 06/21/2018 Active Comment on above: PLACE 1 & 1/2 (ONE & ONE-HALF) STRIPS UNDER THE TONGUE ONCE DAILY CPAP (20 sources) Start: 03-08-2022 End: 07-13-2023 CPAP Indications: EARLENE (obstructive sleep apnea) AutoCPAP 5-15 cm H2O, mask (pt pref), filters, heated humidity & tubing. Lifetime supplies. EARLENE G47.33. 1 Each 03/08/2022 07/13/2023 Discontinued Start: 03-08-2022 End: 07-13-2023 CPAP Indications: EARLENE (obstr uctive sleep apnea) AutoCPAP 5-15 cm H2O, mask (pt pref), filters, heated humidity & tubing. Lifetime supplies. EARLENE G47.33. 1 Each 0 03/08/2022 07/13/2023 Discontinued Start: 03-08-2022 CPAP Indicatio ns: EARLENE (obstructive sleep apnea) AutoCPAP 5-15 cm H2O, mask (pt pref), filters, heated humidity & tubing. Lifetime supplies. EARLENE G47.33. 1 Each 0 03/08/2022 Active Start: 12-06-2021 End: 04-12-2022 CPAP AutoPAP set at fixed Se ttings of 5 cm H2O, suitable mask per pt preference, chin strap, head gear, humidity, tubing, lifetime supplies. G47.33 EARLENE 1 Each 11 12/06/2021 04/12/2022 Discontinued Start: 12-06-2021 CPAP AutoPAP s et at fixed Settings of 5 cm H2O, suitable mask per pt preference, chin strap, head gear, humidity, tubing, lifetime supplies. G47.33 EARLENE 1 Each 11 12/06/2021 Active Comment on above: AutoPAP set at fixed Settings of 5 cm H2O, suitable mask per pt preference, chin strap, head gear, humidity, tubing, lifetime supplies. G47.33 EARLENE AutoCPAP 5-15 cm H2O , mask (pt pref), filters, heated humidity & tubing. Lifetime supplies. EARLENE G47.33. CPAP/BIPAP/OTHER (17 sources) Start: 01-05-2023 End: 07-13-2023 CPAP/BIPAP/OTHER Type .CPAPSettings into a note to see current settings/supplies/DME information. 1 Each 0 01/05/2023 07/13/2023 Discontinued Start: 01-05-2023 End: 05-22-2050 CPAP/BIPAP/OTHER Type .CPAPS ettings into a note to see current settings/supplies/DME information. 1 Each 0 01/05/2023 05/22/2050 Active Comment on above: Type .CPAPSettings i nto a note to see current settings/supplies/DME information. cyclobenzaprine hydrochloride 10 mg oral tablet (2 sources) Muscle Relaxant Start : 08-22 End: 11-27 take 1 tablet by mouth three times daily as needed for muscle spasms cyclobenzaprine (FLEXERIL) 10 mg tablet Indications: Sciatica, right side Take 1 tablet by mouth three times a day as needed for muscle spasm. 15 tablet 08/22/2023 11/27/2023 Discontinued dicyclomine hydrochloride 10 mg oral capsule (20 sources) Anticholinergic Start : 09-23 End: 03-27 take 1 capsule by mouth at bedtime dicyclomine (BENTYL) 10 mg capsule Indications: Diarrhea, unspecified type Take 1 capsule by mouth before meals and at bedtime. 20 capsule 09/23/2024 03/27/2025 Discontinued Start: 06-21-2018 take 1 capsule by mo uth three times daily as needed dicyclomine (BENTYL) 10 MG capsule Take 1 (one) capsule (10 mg total) by mouth 3 (three) times a day as needed Stomach cramping. 15 capsule 0 06/21/2018 Active docusate sodium 100 mg oral capsule (20 sources) Start: 01-10-2023 End: 11-27-2023 take 1 capsule by mouth twice daily docusate sodium (COLACE) 100 mg capsule Take 1 capsule by mouth twice daily. 60 capsule 5 01/10/2023 11/27/2023 Discontinued Comment on above: Take 1 capsule by mo ut twice daily. enteric contrast (will be provided with radiology test) (6 sources) Start: 08-19-2024 End: 08-20-2024 enteric contrast (will be provided with radiology test) Indications: Nausea and vomiting, unspecified vomiting type For CT ABD/PEL W IVCON Routine order Administer, As Directed One Time Only, via Oral, Rectal, both Oral and Rectal, Enteric Tube, Stoma or Indwelling Catheter, Enteric Contrast as designated per enteric contrast guidelines 1 Each 08/19/2024 08/20/2024 Start: 08-19-2024 End: 08-20-2024 enteric contrast (will be pr ovided with radiology test) Indications: Nausea and vomiting, unspecified vomiting type For CT ABD/PEL W IVCON Routine order Administer, As Directed One Time Only, via Oral, Rectal, both Oral and Rectal, Enteric Tube, Stoma or Indwelling Catheter, Enteric Contrast as designated per enteric contrast guidelines 1 Each 08/19/2024 08/20/2024 Active Start: 02-02-2023 End: 02-03-2023 enteric contrast (will be pr ovided with radiology test) Indications: RUQ pain , Gross hematuria , Amenorrhea , LLQ pain For CT ABD/PEL W IVCON Routine order Administer, As Directed One Time Only, via Oral, Rectal, both Oral and Rectal, Enteric Tube, Stoma or Indwelling Catheter, Enteric Contrast as designated per enteric contrast guidelines 1 Each 0 02/02/2023 02/03/2023 Start: 02-02-2023 End: 02-03-2023 enteric contrast (will be pr ovided with radiology test) Indications: RUQ pain , Gross hematuria , Amenorrhea , LLQ pain For CT ABD/PEL W IVCON Routine order Administer, As Directed One Time Only, via Oral, Rectal, both Oral and Rectal, Enteric Tube, Stoma or Indwelling Catheter, Enteric Contrast as designated per enteric contrast guidelines 1 Each 0 02/02/2023 02/03/2023 Active Start: 02-02-2023 End: 02-02-2023 enteric contrast (will be pr ovided with radiology test) Indications: RUQ pain , Chronic constipation , Gross hematuria , Amenorrhea , LLQ pain For CT ABD/PEL W IVCON Routine order Administer, As Directed One Time Only, via Oral, Rectal, both Oral and Rectal, Enteric Tube, Stoma or Indwelling Catheter, Enteric Contrast as designated per enteric contrast guidelines 1 Each 0 02/02/2023 02/02/2023 Discontinued Comment on above: For CT ABD/PEL W IVC ON Routine order Administer, As Directed One Time Only, via Oral, Rectal, both Oral and Rectal, Enteric Tube, Stoma or Indwelling Catheter, Enteric Contrast as designated per enteric contrast guidelines 21 day ethinyl estradiol 0.838709 mg/hr / etonogestrel 0.005 mg/hr vaginal system (20 sources) Progestin, Estrogen Start: 10-12-20 End: 11-27-19 24 Etonogestrel-Ethinyl Estradiol (NUVARING) 0.12-0.015 mg/24 hr vaginal ring Indications: Dysmenorrhea , Menorrhagia with regular cycle , Encounter for prescription for nuvaring Use 1 Each vaginally as directed. INSERT ONE(1) RING VAGINALLY AND LEAVE IN PLACE FOR THREE WEEKS, THEN REMOVE FOR 1 WEEK. 3 Each 3 10/12/2022 11/27/2023 Discontinued Comment on above: Use 1 Each vaginally as directed. INSERT ONE(1) RING VAGINALLY AND LEAVE IN PLACE FOR THREE WEEKS, THEN REMOVE FOR 1 WEEK. etodolac 400 mg oral tablet (20 sources) Nonsteroidal Anti-inflammatory Drug Start: 10-26-20 End: 03-06-20 23 take 1 tablet by mouth twice daily etodolac (LODINE) 400 mg tablet Take 1 tablet by mouth twice daily. 60 tablet 0 10/26/2021 01/01/2023 Discontinued Comment on above: Take 1 tablet by robin th twice daily. ferrous sulfate 325 mg oral tablet (20 sources) Start: 12-18-19 End: 03-08-20 take 1 tablet by mouth once daily at breakfast ferrous sulfate 325 mg (65 mg iron) tablet Take 1 tablet by mouth daily with breakfast. 30 tablet 5 09/10/2023 03/08/2024 Start: 04-27-2022 End: 10-24-2022 take 1 tablet by mouth once daily at breakfast ferrous sulfate 325 mg (65 mg iron) tablet Take 1 tablet by mouth daily with breakfast. 30 tablet 5 04/27/2022 10/24/2022 Active Comment on above: Take 1 tablet by robin th daily with breakfast. gabapentin 600 mg oral tablet (20 sources) Anti-epileptic Agent Start: End: take 1 tablet by mouth three times daily for pain, then take 1 tablet by mouth three times daily at bedtime for pain gabapentin (NEURONTIN) 600 mg tablet Indications: RLS (restless legs syndrome) Take 1 tablet by mouth three times a day for 7 days. 1 po three times a day (noon, 5pm and bedtime) for treatment refractory RLS pain 21 tablet 06/03/2025 06/16/2025 Discontinued Start: 02-17-2025 End: 02-06-2025 take 1 tablet by mouth three times daily at bedtime for pain gabapentin (NEURONTIN) 600 mg tablet Indications: RLS (restless legs syndrome) 1 po three times a day (noon, 5pm and bedtime) for treatment refractory RLS pain Patient should start on February 17, 2025. 90 tablet 02/17/2025 02/06/2025 Discontinued Start: 01-10-2024 End: 03-19-2025 take 1 tablet by mouth three times daily at bedtime for pain gabapentin (NEURONTIN) 600 mg tablet Indications: RLS (restless legs syndrome) 1 po three times a day (noon, 5pm and bedtime) for treatment refractory RLS pain 90 tablet 2 02/06/2025 Active Start: 09-10-2023 End: 03-08-2024 take 1 tablet by mouth twice daily gabapentin (NEURONTIN) 600 mg tablet Take 1 tablet by mouth two times a day for 180 days. 60 tablet 5 09/10/2023 01/10/2024 Discontinued Start: 05-18-2023 End: 01-09-2024 take 1 capsule by mouth twice daily gabapentin (NEURONTIN) 400 mg capsule Indications: RLS (restless legs syndrome) Take 1 capsule by mouth twice daily for 180 days. 60 capsule 5 07/13/2023 01/09/2024 Active Start: 01-05-2023 End: 05-23-2023 gabapentin (NEURONTIN) 100 m g capsule Take 4 capsules twice daily (take 1- 3 hours before onset of RLS in the afternoon and at bedtime). Do not start before March 03, 2023. 240 capsule 3 03/03/2023 05/18/2023 Discontinued (Course of therapy completed) Start: 07-28-2022 End: 01-05-2023 take 1 tablet by mouth once daily at bedtime gabapentin (NEURONTIN) 800 mg tablet Indications: RLS (restless legs syndrome) Take 1 tablet by mouth daily at bedtime for 30 days. Do not start before July 28, 2022. 30 tablet 5 07/28/2022 01/05/2023 Discontinued Start: 06-01-2022 End: 07-12-2022 take 1 tablet by mouth once daily at bedtime gabapentin (NEURONTIN) 800 mg tablet Indications: RLS (restless legs syndrome) Take 1 tablet by mouth daily at bedtime for 30 days. 30 tablet 1 06/01/2022 07/12/2022 Discontinued Start: 04-27-2022 End: 06-01-2022 take 2 capsules by mouth once daily at bedtime gabapentin (NEURONTIN) 300 mg capsule Indications: RLS (restless legs syndrome) Take 2 capsules by mouth daily at bedtime for 90 days. Do not start before May 25, 2022. 60 capsule 2 05/25/2022 06/01/2022 Discontinued (Course of therapy completed) Start: 03-05-2018 take 1 dose by mouth once miah y gabapentin Dose : 300 mg =, Oral, 8x/Day Start Date: 03/05/18 Status: Ordered gabapentin (NEUR ONTIN) 400 MG capsule Take 400 mg by mouth 8 times daily (Days supply per fill: 30) . 0 Active Comment on above: Take 2 capsules by m outh daily at bedtime for 30 days. Take 1 tablet by robin th daily at bedtime for 30 days. Take 2 capsules by m outh daily at bedtime for 90 days. Do not start before May 25, 2022. Take 1 tablet by robin th daily at bedtime for 30 days. Do not start before July 28, 2022. Take 4 capsules twic e daily (take 1- 3 hours before onset of RLS in the afternoon and at bedtime). Take 4 capsules twic e daily (take 1- 3 hours before onset of RLS in the afternoon and at bedtime). Do not start before March 03, 2023. Take 1 capsule by mo uth twice daily for 30 days. Take 1 capsule by mo uth twice daily for 180 days. Take 1 tablet by robin th two times a day for 180 days. 1 po three times a d ay (noon, 5pm and bedtime) for treatment refractory RLS pain iv contrast (will be provided with radiology test) (5 sources) Start: 08-19-2024 End: 08-20-2024 iv contrast (will be provided with radiology test) Indications: Nausea and vomiting, unspecified vomiting type CT ABD/PEL -Inject, intravenously, once for 1 dose.No IV access, insert saline lock prior to the beginning of sedation, infusion, injection of imaging exam. Discontinue saline lock post exam. If Pt. has a central line or IVAD, may access for administration according to line specific nursing protocol. Once exam is complete flush line and de-access according to line specific nursing protocol in the CT contrast administration guidelines link. 1 Each 08/19/2024 08/20/2024 Start: 08-19-2024 End: 08-20-2024 iv contrast (will be provide d with radiology test) Indications: Nausea and vomiting, unspecified vomiting type CT ABD/PEL -Inject, intravenously, once for 1 dose.No IV access, insert saline lock prior to the beginning of sedation, infusion, injection of imaging exam. Discontinue saline lock post exam. If Pt. has a central line or IVAD, may access for administration according to line specific nursing protocol. Once exam is complete flush line and de-access according to line specific nursing protocol in the CT contrast administration guidelines link. 1 Each 08/19/2024 08/20/2024 Active Start: 02-02-2023 End: 02-03-2023 iv contrast (will be provide d with radiology test) Indications: RUQ pain , Gross hematuria , Amenorrhea , LLQ pain CT ABD/PEL -Inject, intravenously, once for 1 dose.No IV access, insert saline lock prior to the beginning of sedation, infusion, injection of imaging exam. Discontinue saline lock post exam. If Pt. has a central line or IVAD, may access for administration according to line specific nursing protocol. Once exam is complete flush line and de-access according to line specific nursing protocol in the CT contrast administration guidelines link. 1 Each 0 02/02/2023 02/03/2023 Start: 02-02-2023 End: 02-03-2023 iv contrast (will be provide d with radiology test) Indications: RUQ pain , Gross hematuria , Amenorrhea , LLQ pain CT ABD/PEL -Inject, intravenously, once for 1 dose.No IV access, insert saline lock prior to the beginning of sedation, infusion, injection of imaging exam. Discontinue saline lock post exam. If Pt. has a central line or IVAD, may access for administration according to line specific nursing protocol. Once exam is complete flush line and de-access according to line specific nursing protocol in the CT contrast administration guidelines link. 1 Each 0 02/02/2023 02/03/2023 Active Start: 02-02-2023 End: 02-02-2023 iv contrast (will be provide d with radiology test) Indications: RUQ pain , Chronic constipation , Gross hematuria , Amenorrhea , LLQ pain CT ABD/PEL -Inject, intravenously, once for 1 dose.No IV access, insert saline lock prior to the beginning of sedation, infusion, injection of imaging exam. Discontinue saline lock post exam. If Pt. has a central line or IVAD, may access for administration according to line specific nursing protocol. Once exam is complete flush line and de-access according to line specific nursing protocol in the CT contrast administration guidelines link. 1 Each 0 02/02/2023 02/02/2023 Discontinued Comment on above: CT ABD/PEL -Inject, intravenously, once for 1 dose.No IV access, insert saline lock prior to the beginning of sedation, infusion, injection of imaging exam. Discontinue saline lock post exam. If Pt. has a central line or IVAD, may access for administration according to line specific nursing protocol. Once exam is complete flush line and de-access according to line specific nursing protocol in the CT contrast administration guidelines link. lactulose 667 mg/ml oral solution (20 sources) Osmotic Laxative Start: 02-03-20 End: 11-27-19 24 lactulose (DUPHALAC, CONSTULOSE) 10 g/15 mL soln Take 30 ml once a day in the evening 946 mL 5 02/02/2023 11/27/2023 Discontinued Comment on above: Take 30 ml once a da y in the evening lamoTRIgine 100 mg oral tablet (20 sources) Mood Stabilizer, Anti-epileptic Agent Start: 06-28-20 End: 10-12-20 take 1 tablet by mouth once daily lamoTRIgine (LAMICTAL) 100 mg tablet Take 100 mg by mouth once daily. 06/28/2021 10/12/2022 Discontinued take 1 tablet by mouth twice [place] lamoTRIgine (LAMICTAL) 150 mg tablet Take 150 mg by mouth twice daily. Active Comment on above: Take 100 mg by mouth once daily. Take 150 mg by mouth twice daily. medroxyPROGESTERone acetate 10 mg oral tablet (10 sources) Progestin Start : 04-10 End: 06-17 take 1 tablet by mouth once daily medroxyPROGESTERone (PROVERA) 10 mg tablet Take 1 tablet by mouth once daily. 14 tablet 04/10/2024 06/17/2024 Discontinued methylPREDNISolone (3 sources) Corticosteroid Start : 05-15 End: 05-21 methylPREDNISolone (MEDROL, PANTERA,) 4 mg Dose-Pack Follow dosing instructions, take with food. 21 tablet 05/15/2025 05/21/2025 Start: 05-15-2025 End: 05-21-2025 methylPREDNISolone (MEDROL, PANTERA,) 4 mg Dose-Pack Follow dosing instructions, take with food. 21 tablet 05/15/2025 05/21/2025 Active metoclopramide 10 mg oral tablet (20 sources) Dopamine-2 Receptor Antagonist Start: 08-19-2024 End: 03-25-2025 take 1 tablet by mouth three times daily before mealtime as needed metoclopramide HCl (REGLAN) 10 mg tablet Indications: Nausea and vomiting, unspecified vomiting type Take 1 tablet by mouth three times a day as needed. 30min before meals. 30 tablet 08/19/2024 03/25/2025 Discontinued (Discontinued by Patient) Naltrexone (5 sources) Opioid Antagonist Start: 08-28-2024 End: 09-23-2024 take 1 capsule by mouth once daily naltrexone capsule 5 mg (CPD) Take 1 capsule by mouth once daily. 30 capsule 2 08/28/2024 09/23/2024 Discontinued Start: 08-28-2024 take 1 capsule by mo [facility] once daily naltrexone capsule 5 mg (CPD) Take 1 capsule by mouth once daily. 30 capsule 2 08/28/2024 Active naproxen 500 mg oral tablet (1 source) Nonsteroidal Anti-inflammatory Drug Start: 03-11-2021 End: 10-10-2021 take 1 tablet by mouth twice daily as needed for pain naproxen (NAPROSYN) 500 mg tablet Indications: Acute pain of right knee Take 1 tablet by mouth twice daily as needed (for pain/inflammation). Take with food. 30 tablet 03/11/2021 10/10/2021 Discontinued (Lack of Efficacy) 24 hr oxybutynin chloride 10 mg extended release oral tablet (20 sources) Cholinergic Muscarinic Antagonist Start: 06-01-2021 End: 01-01-2023 take 1 tablet by mouth once daily oxybutynin ER (DITROPAN XL) 10 mg 24 hr tablet Take 10 mg by mouth once daily. 06/01/2021 01/01/2023 Discontinued Comment on above: Take 10 mg by mouth once daily. pantoprazole 40 mg delayed release oral tablet (20 sources) Proton Pump Inhibitor Start: 07-12-2021 End: 01-01-2023 take 1 tablet by mouth once daily before breakfast pantoprazole DR (PROTONIX) 40 mg tablet Take 1 tablet by mouth daily before breakfast. Take on empty stomach, 1/2 hr before meal. 30 tablet 5 01/10/2022 01/01/2023 Discontinued Comment on above: Take 1 tablet by robin th daily before breakfast. Take on empty stomach, 1/2 hr before meal. phenazopyridine hydrochloride 200 mg oral tablet (10 sources) Start: 09-19-2022 End: 01-01-2023 take 1 tablet by mouth every eight hours as needed phenazopyridine (PYRIDIUM) 200 mg tablet Take 1 tablet by mouth three times daily as needed. 6 tablet 0 09/19/2022 01/01/2023 Discontinued Comment on above: Take 1 tablet by robin three times daily as needed. prazosin 1 mg oral capsule (20 sources) alpha-Adrenergic Elvia Start: 07-26-2022 End: 11-27-2023 prazosin (MINIPRESS) 1 mg cap 07/26/2022 11/27/2023 Discontinued Start: 07-26-2022 End: 11-27-2023 take 1 capsule by mouth every twenty-four hours as needed prazosin (MINIPRESS) 2 mg cap Take 2 mg by mouth at bedtime as needed. 07/26/2022 11/27/2023 Discontinued Comment on above: TAKE 1 CAPSULE BY MO [facility] AT BEDTIME ALONG WITH PRAZOSIN 2 MG Take 2 mg by mouth a t bedtime as needed. predniSONE 20 mg oral tablet (9 sources) Start: 04-04-2024 End: 04-09-2024 take 2 tablets by mouth once daily at mealtime predniSONE (DELTASONE) 20 mg tablet Take 2 tablets by mouth once daily for 5 days. Take daily with food. 10 tablet 0 04/04/2024 04/09/2024 Start: 11-16-2022 End: 11-20-2022 take 2 tablets by mouth once daily at mealtime predniSONE (DELTASONE) 20 mg tablet Indications: Trapezius muscle strain, right, initial encounter Take 2 tablets by mouth once daily for 4 days. Take daily with food. 8 tablet 0 11/16/2022 11/20/2022 Active Start: 07-17-2022 End: 07-22-2022 take 2 tablets by mouth once daily predniSONE (DELTASONE) 20 mg tablet Indications: Sinobronchitis Take 2 tablets by mouth once daily for 5 days. 10 tablet 0 07/17/2022 07/22/2022 Active Start: 07-11-2022 End: 07-16-2022 take 1 tablet by mouth once daily predniSONE (DELTASONE) 20 mg tablet Take 1 tablet by mouth once daily for 5 days. 5 tablet 0 07/11/2022 07/16/2022 Active Start: 01-18-2021 End: 07-12-2021 take 1 tablet by mouth once daily predniSONE (DELTASONE) 50 mg Take 1 tablet by mouth once daily. 7 tablet 01/18/2021 07/12/2021 Discontinued Comment on above: Take 1 tablet by robin th once daily for 5 days. Take 2 tablets by mo uth once daily for 5 days. Take 2 tablets by mo uth once daily for 4 days. Take daily with food. protriptyline hydrochloride 5 mg oral tablet (20 sources) Tricyclic Antidepressant Start: 01-10-20 End: 09-23-20 take 1 tablet by mouth once daily in the morning protriptyline (VIVACTIL) 5 mg tablet Take 1 tablet by mouth every morning. 30 tablet 2 01/10/2024 09/23/2024 Discontinued Start: 07-13-2023 End: 01-10-2024 take 2 tablets by mouth once daily in the morning protriptyline (VIVACTIL) 5 mg tablet Take 2 tablets by mouth every morning. 60 tablet 3 07/13/2023 01/10/2024 Discontinued Comment on above: Take 2 tablets by mo ut every morning. Take 1 tablet by robin th every morning. risperiDONE 3 mg oral tablet (20 sources) Atypical Antipsychotic Start: 06-17-20 End: 08-19-20 take 1 tablet by mouth once daily at bedtime risperiDONE (RISPERDAL) 3 mg tablet Take 1 tablet by mouth daily at bedtime. 06/17/2024 08/19/2024 Discontinued Start: 09-26-2022 End: 06-17-2024 take 1 tablet by mouth once daily at bedtime risperiDONE (RISPERDAL) 1 mg tablet Take 1 mg by mouth daily at bedtime. 09/26/2022 06/17/2024 Discontinued (Adjust Sig - Block E-Cancel) Start: 04-21-2021 End: 07-12-2022 risperiDONE (RISPERDAL) 0.5 mg tablet Take 1 tablet by mouth twice daily. Per psych 60 tablet 2 04/21/2021 07/12/2022 Discontinued Start: 02-22-2021 End: 03-23-2021 risperiDONE (RISPERDAL) 0.5 mg tablet Take 1 tablet by mouth twice daily. Per psych 60 tablet 02/22/2021 03/23/2021 Discontinued Comment on above: Take 1 tablet by robin twice daily. Per psych Take 1 mg by mouth d aily at bedtime. tiZANidine 4 mg oral tablet (13 sources) Central alpha-2 Adrenergic Agonist Start: End: take 1 tablet by mouth every eight hours as needed tiZANidine (ZANAFLEX) 4 mg tablet Take 1 tablet by mouth every 8 hours as needed. 90 tablet 1 04/23/2024 08/19/2024 Discontinued Start: 01-18-2021 End: 05-05-2021 take 1 tablet by mouth every eight hours as needed tiZANidine (ZANAFLEX) 4 mg tablet Take 1 tablet by mouth every 8 hours as needed (muscle spasms). 21 tablet 01/18/2021 05/05/2021 Discontinued zolpidem tartrate 6.25 mg extended release oral tablet (20 sources) gamma-Aminobutyric Acid-ergic Agonist Start: 05-15-2025 End: 09-14-2025 take 1 tablet by mouth once daily at bedtime zolpidem (AMBIEN CR) 6.25 mg CR tablet Indications: Primary insomnia Take 1 tablet by mouth daily at bedtime for 30 days. 30 tablet 06/10/2025 06/16/2025 Discontinued Start: 01-16-2025 End: 05-27-2025 take 1 tablet by mouth once daily at bedtime zolpidem (AMBIEN) 5 mg tablet Indications: Chronic insomnia Take 1 tablet by mouth daily at bedtime for 30 days. 30 tablet 04/27/2025 05/15/2025 Discontinued Start: 12-03-2024 End: 2025 take 1 tablet by mouth at bedtime as needed zolpidem (AMBIEN) 5 mg tablet Indications: Chronic insomnia Take 1 tablet by mouth at bedtime as needed for up to 60 days. 30 tablet 1 12/03/2024 01/16/2025 Discontinued Problems Active Problems Problem Classification Problem Date Documented Da te Episodic/Chronic Allergic reactions (1 source) Allergy status to other drugs, medicaments and biological substances status; Translations: [Allergy status to other drugs, medicaments and biological substances status] Onset: 07-17-2019 Episodic Anxiety disorders (20 sources) Anxiety disorder, unspecified; Translations: [Posttraumatic stress disorder] Onset: 12-07-2014 07-12-2021 Chronic Asthma (20 sources) Uncomplicated allergic asthma; Translations: [Unspecified asthma, uncomplicated] Onset: 11-11-2020 Resolved: 02-23-2014 11-11-2020 Chronic Chronic obstructive pulmonary disease and bronchiectasis (1 source) Bronchitis; Translations: [Bronchitis, not specified as acute or chronic] 10-24-2023 Episodic Deficiency and other anemia (2 sources) Deficiency anemias; Translations: [Nutritional anemia, unspecified] Episodic Diabetes mellitus without complication (1 source) Type 2 diabetes mellitus without complications; Translations: [Type 2 diabetes mellitus without complications] Onset: 07-09-2019 Chronic Disorders of lipid metabolism (20 sources) Mixed hyperlipidemia; Translations: [Mixed hyperlipidemia] Onset: 07-13-2021 01-10-2022 Chronic Disorders usually diagnosed in infancy, childhood, or adolescence (20 sources) Attention deficit hyperactivity disorder, predominantly inattentive type; Translations: [Other specified behavioral and emotional disorders with onset usually occurring in childhood and adolescence] 06-23-2019 Chronic Epilepsy; convulsions (2 sources) Epilepsy, unspecified, not intractable, without status epilepticus; Translations: [Seizure disorder] Onset: 03-20-2018 03-20-2018 Chronic Esophageal disorders (20 sources) Gastro-esophageal reflux disease with esophagitis; Translations: [Gastroesophageal reflux disease with esophagitis without hemorrhage] Onset: 11-11-2020 11-11-2020 Chronic Esophageal disorders (1 source) Esophageal disorders; Translations: [Gastroesophageal reflux disease with esophagitis without hemorrhage] Onset: 11-11-2020 Headache; including migraine (1 source) Headache; including migraine; Translations: [Headache, unspecified] Onset: 05-11-2025 Hepatitis (1 source) Chronic hepatitis C; Translations: [Chronic hepatitis C] Onset: 02-19-2018 02-19-2018 Chronic Immunizations and screening for infectious disease (4 sources) Hepatitis C antibody test positive; Translations: [Contact with or exposure to other viral diseases] Onset: 02-27-2018 02-27-2018 Episodic Intestinal infection (1 source) Viral gastroenteritis; Translations: [Viral intestinal infection, unspecified] 11-07-2024 Episodic Menstrual disorders (11 sources) Menorrhagia; Translations: [Excessive and frequent menstruation with regular cycle] Chronic Miscellaneous mental health disorders (20 sources) Nightmares associated with chronic post-traumatic stress disorder; Translations: [Nightmare disorder] Onset: 09-08-2014 Chronic Mood disorders (20 sources) Depressive disorder; Translations: [Depression] Onset: 09-08-2014 10-24-2021 Chronic Mood disorders (1 source) Mood disorders; Translations: [Depression, unspecified depression type] Onset: 10-24-2021 Mycoses (1 source) Candidiasis; Translations: [Candidiasis, unspecified] Episodic Nonmalignant breast conditions (4 sources) Discharge from nipple; Translations: [Nipple discharge] 03-03-2024 Episodic Open wounds of extremities (2 sources) Dog bite of forearm; Translations: [Open bite of right forearm, initial encounter] 02-04-2025 Episodic Open wounds of head; neck; and trunk (1 source) Dog bite of abdomen; Translations: [Open bite of abdominal wall, unspecified quadrant without penetration into peritoneal cavity, initial encounter] 02-04-2025 Episodic Other acquired deformities (20 sources) Scoliosis deformity of spine; Translations: [Scoliosis, unspecified] Onset: 10-04-2021 01-10-2022 Chronic Other connective tissue disease (1 source) Pain in left hand; Translations: [Pain in left hand] Onset: 07-09-2019 Episodic Other connective tissue disease (1 source) 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 Episodic Other endocrine disorders (1 source) Hyperprolactinemia; Translations: [Hyperprolactinemia] 04-10-2024 Chronic Other female genital disorders (2 sources) Abnormal uterine bleeding; Translations: [Other specified abnormal uterine and vaginal bleeding] Chronic Other female genital disorders (4 sources) Vaginal discharge; Translations: [Other specified noninflammatory disorders of vagina] Episodic Other female genital disorders (1 source) History of endometriosis; Translations: [Personal history of other diseases of the female genital tract] Episodic Other female genital disorders (2 sources) H/O: menorrhagia; Translations: [Personal history of other diseases of the female genital tract] 04-10-2024 Episodic Other gastrointestinal disorders (2 sources) Abdominal bloating; Translations: [Abdominal distension (gaseous)] Episodic Other gastrointestinal disorders (1 source) Acute constipation; Translations: [Constipation, unspecified] Episodic Other gastrointestinal disorders (1 source) Chronic constipation; Translations: [Other constipation] Episodic Other gastrointestinal disorders (2 sources) Diarrhea; Translations: [Diarrhea, unspecified] 07-29-2024 Episodic Other hereditary and degenerative nervous system conditions (20 sources) Restless legs; Translations: [Restless legs syndrome] Onset: 09-20-2016 11-11-2020 Chronic Other hereditary and degenerative nervous system conditions (2 sources) Restless legs syndrome; 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] Onset: 03-27-2025 Chronic Other liver diseases (1 source) Abnormal levels of other serum enzymes; Translations: [Abnormal levels of other serum enzymes] Onset: 07-09-2019 Episodic Other liver diseases (1 source) Large liver; Translations: [Hepatomegaly, not elsewhere classified] 12-10-2023 Episodic Other lower respiratory disease (3 sources) Cough; Translations: [Acute cough] 04-04-2024 Episodic Other nervous system disorders (2 sources) Neuropathy; Translations: [Polyneuropathy, unspecified] Chronic Other nervous system disorders (1 source) Other chronic pain; Translations: [Chronic pelvic pain in female] Onset: 03-25-2025 Chronic Other nervous system disorders (1 source) Numbness and tingling sensation of skin; Translations: [Anesthesia of skin] 07-12-2021 Episodic Other non-traumatic joint disorders (1 source) Pain in right knee; Translations: [Pain in joint, lower leg] 03-11-2021 Episodic Other nutritional; endocrine; and metabolic disorders (1 source) Body mass index 30+ - obesity; Translations: [Obesity, unspecified] 12-18-2024 Chronic Other nutritional; endocrine; and metabolic disorders (1 source) Body mass index 25-29 - overweight; Translations: [Overweight] 05-15-2025 Episodic Other upper respiratory infections (2 sources) Chronic sinusitis; Translations: [Chronic sinusitis, unspecified] Chronic Otitis media and related conditions (3 sources) Acute left otitis media; Translations: [Otitis media, unspecified, left ear] Episodic Poisoning by nonmedicinal substances (3 sources) Toxic effect of unspecified substance, accidental (unintentional), initial encounter; Translations: [Toxic effect of unspecified substance, accidental (unintentional), initial encounter] Onset: 07-17-2019 Residual codes; unclassified (20 sources) Obstructive sleep apnea syndrome; Translations: [Obstructive sleep apnea (adult) (pediatric)] Onset: 12-07-2021 Chronic Residual codes; unclassified (5 sources) Daytime somnolence; Translations: [Other hypersomnia] Chronic Residual codes; unclassified (1 source) Hypersomnia; Translations: [Hypersomnia, unspecified] 12-18-2024 Chronic Residual codes; unclassified (1 source) Obstructive sleep apnea (adult) (pediatric); Translations: [EARLENE (obstructive sleep apnea)] Onset: 03-27-2025 Chronic Residual codes; unclassified (1 source) Reduced libido; Translations: [Decreased libido] 03-14-2024 Episodic Residual codes; unclassified (1 source) Withdrawal symptom; Translations: [Other general symptoms and signs] 09-23-2024 Episodic Residual codes; unclassified (2 sources) Inadequate sleep hygiene; Translations: [Inadequate sleep hygiene] 12-18-2024 Episodic Residual codes; unclassified (2 sources) Disturbance in sleep behavior; Translations: [Sleep disorder, unspecified] 12-18-2024 Episodic Residual codes; unclassified (1 source) Viral syndrome; Translations: [Other general symptoms and signs] 12-24-2024 Episodic Respiratory failure; insufficiency; arrest (adult) (1 source) Respiratory arrest; Translations: [Respiratory arrest] Onset: 07-17-2019 Episodic Spondylosis; intervertebral disc disorders; other back problems (2 sources) Thoracic discogenic pain; Translations: [Other intervertebral disc degeneration, thoracic region] 08-28-2024 Chronic Sprains and strains (1 source) Strain of right trapezius muscle; Translations: [Strain of other muscles, fascia and tendons at shoulder and upper arm level, right arm, initial encounter] Episodic Substance-related disorders (20 sources) Nicotine dependence, unspecified, uncomplicated; Translations: [Nicotine dependence, cigarettes, uncomplicated] Onset: 10-23-2013 02-19-2018 Chronic Substance-related disorders (1 source) Opioid abuse, in remission; Translations: [Opioid abuse, in remission] Onset: 07-17-2019 Suicide and intentional self-inflicted injury (3 sources) Suicidal ideations; Translations: [Suicidal ideations] Onset: 07-09-2019 Episodic Unclassified (1 source) Left ear pain 03-27-2025 Viral infection (3 sources) Viral disease; Translations: [Viral infection, unspecified] 04-16-2024 Episodic Past or Other Problems Problem Classification Problem Date Documented Da te Episodic/Chronic Abdominal pain (16 sources) Epigastric pain; Translations: [Epigastric pain] Onset: 12-17-2023 Episodic Administrative/social admission (20 sources) Admission statuses; Translations: [Lost custody of children] Onset: 10-23-2013 02-19-2018 Episodic Diseases of white blood cells (20 sources) Leukocytosis; Translations: [Elevated white blood cell count, unspecified] Onset: 05-29-2014 Resolved: 08-19-2014 10-24-2021 Chronic Genitourinary symptoms and ill-defined conditions (20 sources) Urgent desire to urinate; Translations: [Urgency of urination] Onset: 10-17-2020 10-17-2020 Episodic Headache; including migraine (20 sources) Generalized headache; Translations: [Generalized headache] Onset: 10-07-2020 11-11-2020 Episodic Heart valve disorders (20 sources) Heart murmur; Translations: [Cardiac murmur, unspecified] Onset: 10-23-2013 Resolved: 02-23-2014 10-24-2021 Episodic Hemorrhage during ; abruptio placenta; placenta previa (20 sources) Threatened miscarriage; Translations: [Threatened ] Onset: 12-23-2014 Resolved: 09-03-2015 09-03-2015 Episodic Inflammatory diseases of female pelvic organs (20 sources) Bacterial vaginosis; Translations: [Acute vaginitis] Onset: 02-03-2014 Resolved: 08-19-2014 10-24-2021 Episodic Malaise and fatigue (20 sources) Fatigue; Translations: [Other fatigue] Onset: 05-29-2014 Resolved: 08-19-2014 Episodic Nausea and vomiting (20 sources) Nausea and vomiting; Translations: [Nausea with vomiting, unspecified] Onset: 02-20-2014 Resolved: 09-03-2015 12-10-2023 Episodic Nutritional deficiencies (20 sources) Decreased vitamin B12 level; Translations: [Deficiency of other specified B group vitamins] Onset: 09-20-2016 Resolved: 01-30-2018 Episodic Other aftercare (2 sources) Other halfway (current) drug therapy; Translations: [Other tank terminal gauger (current) drug therapy] Onset: 07-17-2019 Episodic Other aftercare (20 sources) Patient encounter status; Translations: [Other tank terminal gauger (current) drug therapy] Onset: 01-10-2022 01-10-2022 Episodic Other complications of (20 sources) Streptococcus agalactiae infection; Translations: [Other maternal infectious and parasitic diseases complicating , unspecified trimester] Onset: 02-08-2015 Resolved: 09-03-2015 10-24-2021 Episodic Other complications of (20 sources) High risk ; Translations: [Supervision of high risk , unspecified, unspecified trimester] Onset: 04-02-2015 Resolved: 08-31-2015 10-24-2021 Episodic Other complications of (20 sources) Vomiting of , unspecified; Translations: [Unspecified vomiting of , unspecified as to episode of care or not applicable] Onset: 02-20-2014 Resolved: 09-03-2015 10-24-2021 Episodic Other connective tissue disease (20 sources) Fibromyalgia; Translations: [Fibromyalgia] Onset: 11-25-2013 09-08-2014 Episodic Other ear and sense organ disorders (3 sources) Otalgia, left ear; Translations: [Otalgia, unspecified] Onset: 03-27-2025 07-29-2024 Episodic Other female genital disorders (20 sources) History of premature labor; Translations: [Personal history of pre-term labor] Onset: 02-20-2014 Resolved: 02-23-2014 10-24-2021 Episodic Other female genital disorders (1 source) Personal history of other diseases of the female genital tract; Translations: [History of menorrhagia] Onset: 03-25-2025 Episodic Other gastrointestinal disorders (1 source) Diarrhea, unspecified; Translations: [Diarrhea, unspecified type] Onset: 09-23-2024 Episodic Other infections; including parasitic (20 sources) History of hepatitis C; Translations: [Personal history of other infectious and parasitic diseases] Onset: 02-20-2014 11-11-2020 Episodic Other infections; including parasitic (20 sources) Personal history of other infectious and parasitic diseases; Translations: [History of COVID-19] Onset: 01-10-2022 01-10-2022 Episodic Other infections; including parasitic (1 source) Personal history of other infectious and parasitic diseases; Translations: [History of hepatitis C] Onset: 11-11-2020 Episodic Other nutritional; endocrine; and metabolic disorders (20 sources) Obese class II; Translations: [Obesity, unspecified] Onset: 04-26-2024 Resolved: 03-27-2025 04-26-2024 Chronic Other and delivery including normal (20 sources) ; Translations: [ with uncertain dates] Onset: 10-23-2013 Resolved: 08-19-2014 03-13-2015 Episodic Comment on above: System added from do cumentation. Status documented as Yes on Admission Other screening for suspected conditions (not mental disorders or infectious disease) (1 source) Encounter for screening for diabetes mellitus; Translations: [Screening for diabetes mellitus] Onset: 03-27-2025 Episodic Other upper respiratory infections (10 sources) Sore throat symptom; Translations: [Acute pharyngitis, unspecified] Onset: 05-15-2025 Episodic Pneumonia (except that caused by tuberculosis or sexually transmitted disease) (20 sources) Pneumonia; Translations: [Pneumonia, unspecified organism] Onset: 05-29-2014 Resolved: 08-19-2014 08-19-2014 Episodic Polyhydramnios and other problems of amniotic cavity (20 sources) Subchorionic hematoma; Translations: [Other specified disorders of amniotic fluid and membranes, unspecified trimester, not applicable or unspecified] Onset: 12-23-2014 Resolved: 09-03-2015 10-24-2021 Episodic Residual codes; unclassified (20 sources) Tobacco user; Translations: [Tobacco use] Onset: 09-08-2014 09-08-2014 Episodic Residual codes; unclassified (20 sources) Insomnia; Translations: [Insomnia, unspecified] Onset: 09-08-2014 09-08-2014 Episodic Residual codes; unclassified (20 sources) History of clinical finding in subject; Translations: [Personal history of other specified conditions] Onset: 09-26-2016 01-10-2022 Episodic Residual codes; unclassified (20 sources) Personal history of other specified conditions; Translations: [Personal history of other specified diseases] Onset: 09-26-2016 01-10-2022 Episodic Residual codes; unclassified (1 source) Other general symptoms and signs; Translations: [Withdrawal complaint] Onset: 09-23-2024 Episodic Skin and subcutaneous tissue infections (1 source) Cellulitis of wrist; Translations: [Cellulitis of wrist] Onset: 02-19-2018 02-19-2018 Episodic Spondylosis; intervertebral disc disorders; other back problems (20 sources) Backache; Translations: [Dorsalgia, unspecified] Onset: 03-16-2015 01-10-2022 Episodic Substance-related disorders (20 sources) Suspected damage from maternal drug use; Translations: [Drug use complicating , unspecified trimester] Onset: 06-01-2014 Resolved: 09-03-2015 09-03-2015 Episodic Results Test Name Value Interpretation Reference Range Facility [facility]27-[facility] ([facility]) MARISA SANTA ([id number]) 1990 F Date Time Provider Department 08/27/25 JAVIER REYES [facility] During your visit today, we recorded the following information about you: Wellington Puga RN 08/28/2025 9:27 AM Signed Pharmacy called to check we are aware patient taking lorazepam and adderall prescribed outside [facility] by her Psychiatrist . Ok to fill the ambien and gabapentin prescribed by us still Notified pharmacy Yes as long as the ativan is not dosed less than 4 hours from the ambien Allergies As of Date: 08/27/2025 Noted Allergy Reaction CLINDAMYCIN 10/23/2013 10 - Anaphylaxis PHENERGAN (PROMETHAZINE HCL) 10/23/2013 1 - Mental Status Change CELEXA (CITALOPRAM HYDROBROMIDE) 09/08/2014 16 - Unknown DOXYCYCLINE 04/16/2024 14 - Other: See Comments Comments: Nausea, vomiting and diarrhea EFFEXOR (VENLAFAXINE ANALOGUES) 09/08/2014 16 - Unknown PAXIL (PAROXETINE HCL) 09/08/2014 14 - Other: See Comments Comments: Depression made worse REMERON (MIRTAZAPINE) 11/13/2014 14 - Other: See Comments Comments: [place] strange on it. 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 - gabapentin (NEURONTIN) 600 mg tablet Take 1 tablet by mouth three times a day for 90 days. 1 po three times a day (noon, 5pm and bedtime) for treatment refractory RLS pain - zolpidem (AMBIEN CR) 6.25 mg CR tablet Take 1 tablet by mouth daily at bedtime for 90 days. - albuterol HFA (VENTOLIN HFA) 90 mcg/actuation inhaler Inhale 2 puffs as instructed every 4 hours as needed for wheezing/shortness of breath. - baclofen 10 mg tablet Take 1 tablet by mouth two times a day. - ascorbic acid, vitamin C, (VITAMIN C) 500 mg tablet Take 1 tablet by mouth once daily. - simvastatin (ZOCOR) 5 mg tablet Take 1 tablet by mouth daily at bedtime. For cholesterols - albuterol HFA (PROVENTIL HFA, VENTOLIN HFA) 90 mcg/actuation inhaler Inhale 2 Puffs as instructed every 4 hours as needed for wheezing/shortness of breath. - omeprazole (PRILOSEC) 40 mg capsule Take one tab 30 min prior to breakfast and dinner. - lamoTRIgine (LAMICTAL) 150 mg tablet Take 150 mg by mouth twice daily. - hydrOXYzine HCl (ATARAX) 50 mg tablet Take 1 tablet by mouth three times daily. Meds Comments as of 10/30/2019: Patient is taking propanolol and finishing up with predisone for a rash. Xiomy Mcclellan Ma Problem List As Of Date 08/27/2025 Noted Resolved with uncertain dates [Z34.90] 10/23/2013 10/28/2013 History of heroin abuse (HCC) [F11.11] 10/23/2013 Lost custody of children [Z65.3] 10/23/2013 Heart murmur [R01.1] 10/23/2013 02/23/2014 Attention deficit disorder [F98.8] Asthma [J45.909] 02/23/2014 Fibromyalgia [M79.7] 11/25/2013 Bacterial vaginal infection [N76.0, B96.89] 02/03/2014 08/19/2014 History of labor [Z87.51] 02/20/2014 02/23/2014 with care elsewhere [Z34.90] 02/20/2014 08/19/2014 History of hepatitis C [Z86.19] 02/20/2014 Nausea/vomiting in [O21.9] 02/20/2014 08/19/2014 Leukocytosis [D72.829] 05/29/2014 08/19/2014 Malaise [R53.81] 05/29/2014 08/19/2014 Pneumonia [J18.9] 05/29/2014 08/19/2014 Maternal drug use complicating , antep*06/01/2014 09/03/2015 Tobacco abuse [Z72.0] 09/08/2014 Insomnia [G47.00] 09/08/2014 Depression [F32.A] 09/08/2014 PTSD (post-traumatic stress disorder) [F43.10] 12/07/2014 Threatened [O20.0] 12/23/2014 09/03/2015 Subchorionic hematoma [O41.8X90, O46.8X9] 12/23/2014 09/03/2015 Nausea/vomiting in [O21.9] 01/27/2015 09/03/2015 Group B streptococcal infection during pregnanc*02/08/2015 09/03/2015 Back pain [M54.9] 03/16/2015 Supervision of high-risk [O09.90] 04/02/2015 08/31/2015 Bipolar disorder (HCC) [F31.9] 04/07/2015 Anxiety [F41.9] 04/07/2015 RLS (restless legs syndrome) [G25.81] 09/20/2016 Iron deficiency concern related to RLS [E61.1] 09/20/2016 01/30/2018 History of seizures [Z87.898] 09/26/2016 Drug abuse (HCC) [F19.10] 10/18/2016 Neck pain [M54.2] 03/02/2020 Generalized headache [R51.9] 10/07/2020 Urgency of urination [R39.15] 10/17/2020 Gastroesophageal reflux disease with esophagiti*11/11/2020 Extrinsic asthma without complication [J45.909] 11/11/2020 Hyperlipidemia, mixed [E78.2] 07/13/2021 Scoliosis [M41.9] 10/04/2021 EARLENE (obstructive sleep apnea) [G47.33] 12/07/2021 History of COVID-19 [Z86.16] 01/10/2022 Medication management [Z79.899] 01/10/2022 Well adult exam [Z00.00] 08/04/2022 Nightmares [F51.5] 02/02/2023 Obesity, Cl (more content not included)... Normal [facility] Urgent Care Visit Reporton 0 07-02-2025 Urgent Care Visit Report [facility] [address], [address] [place] [id number] OFFICE VISIT Date of Service: 07/02/25 MR#: [id number] Acct: [id number] Name: MARISA SANTA Rep #: [id number] : 1990 Provider: SARAH Renee Age/Sex: 35/F Location: [facility] [place] Status: Signed Intake Vital Signs 05/20/25 07:20 07/02/25 09:30 Height 5 ft 1 in Weight: 165 lb 2 oz BMI 31.1 BP 122/70 H 118/66 Blood Pressure Location Lt brachial Lt brachial Position Sitting Sitting Respiration 15 16 Pulse 85 72 Pulse Source NIBP NIBP Temp 98.8 F 98.6 F Temp Source Oral Oral Pulse Oximetry (%) 98 96 Oxygen Delivery Method room air room air Intake Visit Reasons: SORE THROAT, CONGESTION, SINUS PRESSURE Chief Complaint: congest, fatigue, face pain, BA, ST 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 Maintenance 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 Required: No Is patient in pain?: Yes Allergies promethazine HCl (From Phenergan) Allergy (Intermediate, Verified 07/02/25 09:30) Other clindamycin Allergy (Verified 07/02/25 09:30) Anaphylaxis quetiapine (From Seroquel) Allergy (Verified 07/02/25 09:30) Other prednisone Adverse Reaction (Intermediate, Verified 07/02/25 09:30) Other methylprednisolone Adverse Reaction (Mild, Verified 07/02/25 09:31) Anxious, Agitated alprazolam (From Xanax) Adverse Reaction (Verified 07/02/25 09:30) Other doxepin Adverse Reaction (Verified 07/02/25 09:30) Other trazodone Adverse Reaction (Verified 07/02/25 09:30) Other Medications ???Medication ???Instructions ???Recorded ???Confirmed ???Type baclofen 10 mg tablet 10 mg PO PRN PRN Pain 06/29/2204/22 History lamotrigine 150 mg tablet 150 mg PO DAILY 06/29/22 06/03/25 History (Lamictal) albuterol sulfate 90 mcg/actuation 2 puff inhalation Q4 PRN wheezin g 06/03/25 06/03/25 History aerosol inhaler atomoxetine 60 mg capsule 60 mg PO QAM 06/03/25 06/03/25 His tory gabapentin 600 mg tablet 600 mg PO TID 06/03/25 06/03/25 Hi story hydroxyzine HCl 50 mg tablet 50 mg PO .QID 06/03/25 06/03/25 Hi story lorazepam 1 mg tablet 1 mg PO QDAY PRN anxiety 06/03/25 06/03/25 History ondansetron 4 mg disintegrating mg PO 06/03/25 06/03/25 History tablet simvastatin 5 mg tablet 5 mg PO QHS 06/03/25 06/03/25 Hist ory zolpidem 6.25 mg tablet,extended 6.25 mg PO QHS 06/03/25 06/03/25 H istory release,multiphase ipratropium bromide 21 mcg (0.03 2 spray intranasal BID-TID PRN 02/2007/02/25 Rx %) nasal spray postnasal drainage #30 mL pseudoephedrine 60 mg-DM 15 1 tab PO Q4-6H PRN cold symptoms 0 07/02/25 07/02/25 Rx mg-guaifenesin 400 mg tablet #20 tabs (Capmist DM) Is last menstrual period known: No Post menopausal: No Patient : No Have you fallen in the past year?: No Nurse's Note: congest, fatigue, face pain, BA, ST x 48 hours. denies fever [facility] Medical History (Updated 07/02/25 @ 14:25 by Filipe SMITH, PA) Environmental allergies Asthma Scoliosis Restless leg syndrome History of bulimia History of ADHD Methamphetamine abuse in remission Opiate use Borderline personality disorder PTSD (post-traumatic stress disorder) Generalized anxiety disorder Bipolar disorder Epilepsy New onset seizure Surgical History (Updated 05/20/25 @ 07:27 by Ayse Mcclellan) History of laparoscopy History of tubal ligation History of cholecystectomy Family History (Updated 05/20/25 @ 07:27 by Ayse Mcclellan) Other Cancer Diabetes Social History (Updated 05/20/25 @ 07:27 by Ayse Mcclellan) Electronic Cigarette Use: with nicotine alcohol intake: never substance use type: does not use HPI HPI Chief Complaint: congest, fatigue, face pain, BA, ST Details: MARISA SANTA, is a 35 F who presents to the office today for complaint of cough, congestion, sinus congestion/pressure and pain and sore throat for the past 2 days. Patient denies hemoptysis, shortness of breath or difficulty breathing. No loss of taste or smell. No nausea, vomiting or diarrhea. No other associated symptoms or alleviating/aggravatin g factors. ROS Const Constitutional: No other (6 system ROS completed with pertinent findings in the HPI otherwise normal.) Exam Const General: cooperative and healthy appearing HENMT Head: normal to inspection Ears: hearing grossly normal bilaterally, TM's normal bilaterally and EAC's normal Nose: nasal discharge purulent Face and sinus: sinus tenderness frontal and maxillary Mouth: oral mucosae normal Throat: abnormal tonsil bilaterally erythema and hypertrophy 1+ and postnasal drainage Resp Effort Inspection: normal respiratory effort Auscultation: Bilateral: Clear to Auscultation Cardio Palpation: normal PMI Rate: regular rate Rhythm: regular rhythm Neuro General: patient alert and CN's II-XI intact bilaterally (more content not included)... Normal [facility] Urgent Care Visit Reporton 0 06-03-2025 Urgent Care Visit Report [facility] [address], [address] [place] [address] OFFICE VISIT Date of Service: 06/03/25 MR#: [id number] Acct: [id number] Name: MARISA SANTA Rep #: [id number] : 1990 Provider: SARAH Schuler Age/Sex: 35/F Location: [facility] [place] Status: Signed Intake Vital Signs 05/20/25 07:20 06/03/25 09:27 Height 5 ft 1 in Weight: 165 lb 2 oz BMI 31.1 BP 122/70 H 124/80 H Blood Pressure Location Lt brachial Position Sitting Sitting Respiration 15 16 Pulse 85 71 Pulse Source NIBP Temp 98.8 F 98.3 F Temp Source Oral Oral Pulse Oximetry (%) 98 98 Oxygen Delivery Method room air room air Intake Visit Reasons: concern for sinus infection or migraine Chief Complaint: Sinus infection, Mirgraine Accompanied by: Self Allergies promethazine HCl (From Phenergan) Allergy (Intermediate, Verified 06/03/25 09:21) Other clindamycin Allergy (Verified 06/03/25 09:21) Anaphylaxis methylprednisolone Allergy (Verified 06/03/25 09:21) Anxious, Agitated quetiapine (From Seroquel) Allergy (Verified 06/03/25 09:21) Other prednisone Adverse Reaction (Intermediate, Verified 06/03/25 09:21) Other alprazolam (From Xanax) Adverse Reaction (Verified 06/03/25 09:21) Other doxepin Adverse Reaction (Verified 06/03/25 09:21) Other trazodone Adverse Reaction (Verified 06/03/25 09:21) Other Medications ???Medication ???Instructions ???Recorded ???Confirmed ???Type baclofen 10 mg tablet 10 mg PO PRN PRN Pain 06/29/2204/22 History lamotrigine 150 mg tablet 150 mg PO DAILY 06/29/22 06/03/25 History (Lamictal) albuterol sulfate 90 mcg/actuation 2 puff inhalation Q4 PRN wheezin g 06/03/25 06/03/25 History aerosol inhaler amoxicillin 875 mg-potassium 1 tab PO BID #28 tabs 06/03/25 Rx clavulanate 125 mg tablet atomoxetine 60 mg capsule 60 mg PO QAM 06/03/25 06/03/25 His tory gabapentin 600 mg tablet 600 mg PO TID 06/03/25 06/03/25 Hi story hydroxyzine HCl 50 mg tablet 50 mg PO .QID 06/03/25 06/03/25 Hi story lorazepam 1 mg tablet 1 mg PO QDAY PRN anxiety 06/03/25 06/03/25 History ondansetron 4 mg disintegrating mg PO 06/03/25 06/03/25 History tablet simvastatin 5 mg tablet 5 mg PO QHS 06/03/25 06/03/25 Hist ory zolpidem 6.25 mg tablet,extended 6.25 mg PO QHS 06/03/25 06/03/25 H istory release,multiphase Nurse's Note: Patient has pressure behind her eyes, and under her eyes. Patient states she got a migraine yesterday and its worse today. [facility] Medical History (Updated 05/20/25 @ 07:27 by Ayse Mcclellan) Environmental allergies Asthma Scoliosis Restless leg syndrome History of bulimia History of ADHD Methamphetamine abuse in remission Opiate use Borderline personality disorder PTSD (post-traumatic stress disorder) Generalized anxiety disorder Bipolar disorder Epilepsy New onset seizure Surgical History (Updated 05/20/25 @ 07:27 by Ayse Mcclellan) History of laparoscopy History of tubal ligation History of cholecystectomy Family History (Updated 05/20/25 @ 07:27 by Ayse Mcclellan) Other Cancer Diabetes Social History (Updated 05/20/25 @ 07:27 by Ayse Mcclellan) Electronic Cigarette Use: with nicotine alcohol intake: never substance use type: does not use HPI HPI Chief Complaint: Sinus infection, Mirgraine Details: MARISA SANTA, is a 35 F who presents to the office today for recurring 2-3 day history of progressively worsening irritated/sore throat, with forehead and facial pressure/congestion with intermittent purulent postnasal drip. Over the last 24 hours she has developed worsening forehead pressure w/ fatigue, purulent nasal discharge; mild nausea - though no vomiting/diarrhea. No complaints of chest pain/shortness of breath/dyspnea on exertion. No close contacts with similar complaints. No other associated symptoms and no other alleviating/aggravatin g factors. ROS Const Constitutional: No other (as above) Exam Const General: cooperative, healthy appearing and no acute distress Nutritional Appearance: average body habitus Orientation: alert, awake and oriented x3 HENMT Head: normal to inspection Ears: hearing grossly normal bilaterally, external ears normal, TM's normal bilaterally and EAC's normal Nose: external nose normal, nares normal, septum normal and no nasal discharge Face and sinus: normal facial exam, bilateral frontal and maxillary sinuses palpable tender (Though L>R maxillary fullness to palpation) and face symmetric Mouth: oral mucosae normal, lip normal, tongue normal and oropharynx normal Throat: posterior oropharynx normal, tonsils trace erythema without exudate or hypertrophy, uvula midline and postnasal drainage (scant amount purulent) Eyes General: appearance normal, bot (more content not included)... Normal [facility] 06-02-2025 CNPN Telephone (SLEWST) SANTAMARISA MONTERO ([id number]) 1990 F Date Time Provider Department 06/02/25 IRWIN BLOUNT SLEWSMehdi During your visit today, we recorded the following information about you: Dina Crain RN 06/02/2025 10:35 AM Signed Patient calls to report that she went to see her father out of state and forgot her gabapentin medication at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 cell count method Nom (Bld) Auto [facility] Eosinophils (Bld) [#/Vol] 0.22 10*3/uL [facility] Eosinophils/100 WBC (Bld) 2.7 % [facility] Erythrocyte distribution width (RBC) [Ratio] 12.0 % 11.5 - 15.0 % [facility] Hematocrit (Bld) [Volume fraction] 42.4 % 36.0 - 46.0 % [facility] Hemoglobin (Bld) [Mass/Vol] 13.8 g/dL 11.5 - 15.5 g/dL [facility] Immature granulocytes (Bld) [#/Vol] 0.03 10*3/uL [facility] Immature granulocytes/100 WBC (Bld) 0.4 % [facility] Lymphocytes (Bld) [#/Vol] 1.83 10*3/uL [facility] Lymphocytes/100 WBC (Bld) 22.1 % [facility] MCH (RBC) [Entitic mass] 27.3 pg 26.0 - 34.0 pg [facility] MCHC (RBC) [Mass/Vol] 32.5 g/dL 30.5 - 36.0 g/dL [facility] MCV (RBC) [Entitic vol] 84.0 fL 80.0 - 100.0 fL [facility] Monocytes (Bld) [#/Vol] 0.79 10*3/uL NINF [facility] Monocytes/100 WBC (Bld) 9.5 % [facility] Neutrophils (Bld) [#/Vol] 5.32 10*3/uL [facility] Neutrophils/100 WBC (Bld) 64.1 % [facility] Nucleated RBC (Bld) [#/Vol] NINF [facility] Nucleated RBC/100 WBC (Bld) [Ratio] 0.0 % /100 WBC [facility] Platelet mean volume (Bld) [Entitic vol] 9.8 fL 9.0 - 12.7 fL [facility] Platelets (Bld) [#/Vol] 298 10*3/uL [facility] RBC (Bld) [#/Vol] 5.05 10*6/uL 3.90 - 5.2 0 m/uL [facility] WBC (Bld) [#/Vol] 8.29 10*3/uL [facility] Comprehensive metabolic 2000 panelOrdered By: Rose Mary Santana on 08-18-2024 Albumin [Mass/Vol] 4.7 g/dL 3.9 - 4.9 g/dL [facility] ALP [Catalytic activity/Vol] 81 U/L 34 - 123 U/L [facility] ALT [Catalytic activity/Vol] 16 U/L 7 - 38 U/L [facility] Anion gap [Moles/Vol] 10 mmol/L 8 - 15 mmol/L [facility] AST [Catalytic activity/Vol] 19 U/L 13 - 35 U/L [facility] Bilirubin [Mass/Vol] 0.3 mg/dL 0.2 - 1 .3 mg/dL [facility] Calcium [Mass/Vol] 9.9 mg/dL 8.5 - 10. 2 mg/dL [facility] Chloride [Moles/Vol] 101 mmol/L 98 - 10 7 mmol/L [facility] CO2 [Moles/Vol] 25 mmol/L 22 - 30 mmol/L [facility] Creatinine [Mass/Vol] 0.83 mg/dL 0.58 - 0.96 mg/dL [facility] GFR/1.73 sq M.predicted among non-blacks MDRD (S/P/Bld) [Vol rate/Area] 95 mL/min/{1.73_m2} - PINF [facility] Comment on above: Estimated Glomerular Filtration Rate (eGFR) is calculated using the 2020 CKD-EPI creatinine equation. This equation utilizes serum creatinine, sex, and age as parameters. The creatinine assay has traceable calibration to isotope dilution-mass spectrometry. Refer to KDIGO guidelines for clinical interpretation. In patients with unstable renal function, e.g. those with acute kidney injury, the eGFR may not accurately reflect actual GFR. Glucose [Mass/Vol] 111 mg/dL High 74 - 99 mg/dL [facility] Comment on above: The [place] Diab[employer] Association (ADA) provides guidance for cutoff values for fasting glucose and random glucose. The ADA defines fasting as no caloric intake for at least 8 hours. Fasting plasma glucose results between 100 to 125 mg/dL indicate increased risk for diabetes (prediabetes). Fasting plasma glucose results greater than or equal to 126 mg/dL meet the criteria for diagnosis of diabetes. In the absence of unequivocal hyperglycemia, results should be confirmed by repeat testing. In a patient with classic symptoms of hyperglycemia or hyperglycemic crisis, random plasma glucose results greater than or equal to 200 mg/dL meet the criteria for diagnosis of diabetes. Reference: Standards of Medical Care in Diabetes 2016, [place] [employer]. Diabetes Care. 2016.39(Suppl 1). Interpretation and review of laboratory results Abnormal [facility] Potassium [Moles/Vol] 4.2 mmol/L 3.7 - 5.1 mmol/L [facility] Protein [Mass/Vol] 7.7 g/dL 6.3 - 8.0 g/dL [facility] Sodium [Moles/Vol] 136 mmol/L 136 - 144 mmol/L [facility] Urea nitrogen [Mass/Vol] 8 mg/dL 7 - 21 mg/dL [facility] STREP A MOLECULAR (POC)on Procedural Control Valid [facility] Strep A (POCT) Negative Negative [facility] CNPNon 04-17-2024 CNPN Telephone (AGCFM) MARISA LAWSON ([id number]) 1990 F Date Time Provider Department 04/17/24 ERMIAS LOCKWOOD [facility] During your visit today, we recorded the following information about you: Ermias Lockwood MD 04/17/2024 8:39 AM Signed Let patient know her testing for COVID, RSV and Flu were all neg. Mary Ann Thomas LPN 04/17/2024 8:50 AM Signed Left a message for pt to call the office and ask to speak to a nurse. FIGUEROA Ulrich Kathryn, MA 04/17/2024 9:05 AM Signed Message left for pt to call back for results. Xiomy Mcclain MA, MA 04/18/2024 7:22 AM Signed See my chart message. Xiomy Mcclellan MA Allergies As of Date: 04/17/2024 Noted Allergy Reaction CLINDAMYCIN 10/23/2013 10 - Anaphylaxis PHENERGAN (PROMETHAZINE HCL) 10/23/2013 1 - Mental Status Change CELEXA (CITALOPRAM HYDROBROMIDE) 09/08/2014 16 - Unknown DOXYCYCLINE 04/16/2024 14 - Other: See Comments Comments: Nausea, vomiting and diarrhea EFFEXOR (VENLAFAXINE ANALOGUES) 09/08/2014 16 - Unknown PAXIL (PAROXETINE HCL) 09/08/2014 14 - Other: See Comments Comments: Depression made worse REMERON (MIRTAZAPINE) 11/13/2014 14 - Other: See Comments Comments: [place] strange on it. XANAX (ALPRAZOLAM) 09/08/2014 16 - Unknown Date Reviewed: 04/16/2024 Reviewed by: Ermias Lockwood MD - Fully Assessed Reason for Visit: Results [95] Prescriptions as of 04/18/2024 - azithromycin (ZITHROMAX) 500 mg tablet Take 1 tablet by mouth once daily. - Benzonatate 200 mg capsule Take 1 capsule by mouth three times a day as needed. - albuterol HFA (PROVENTIL HFA, VENTOLIN HFA) 90 mcg/actuation inhaler Inhale 2 Puffs as instructed every 4 hours as needed for wheezing/shortness of breath. - doxycycline (VIBRA-TABS) 100 mg tablet Take 1 tablet by mouth two times a day for 5 days. - gabapentin (NEURONTIN) 600 mg tablet 1 po three times a day (noon, 5pm and bedtime) for treatment refractory RLS pain - gabapentin (NEURONTIN) 600 mg tablet Take 1 tablet by mouth three times a day for 30 days. To complete patients partial refill of medication in March. - medroxyPROGESTERone (PROVERA) 10 mg tablet Take 1 tablet by mouth once daily. - baclofen 10 mg tablet Take 1 tablet by mouth two times a day. Patient should start on April 13, 2024. - simvastatin (ZOCOR) 5 mg tablet Take 1 tablet by mouth daily at bedtime. For cholesterols - omeprazole (PRILOSEC) 40 mg capsule Take one tab 30 min prior to breakfast and dinner. - sucralfate (CARAFATE) 100 mg/mL suspension Take 10 ml prior to lunch and bed. - ondansetron orally disintegrating (ZOFRAN ODT) 4 mg disintegrating tablet Take 1 tablet by mouth every 12 hours as needed for nausea/vomiting. - protriptyline (VIVACTIL) 5 mg tablet Take 1 tablet by mouth every morning. - ascorbic acid, vitamin C, (VITAMIN C) 500 mg tablet Take 1 tablet by mouth once daily. - lamoTRIgine (LAMICTAL) 150 mg tablet Take 150 mg by mouth twice daily. - risperiDONE (RISPERDAL) 1 mg tablet Take 1 mg by mouth daily at bedtime. - hydrOXYzine HCl (ATARAX) 50 mg tablet Take 1 tablet by mouth three times daily. - albuterol HFA (VENTOLIN HFA) 90 mcg/actuation inhaler Inhale 2 Puffs as instructed every 4 hours as needed for Wheezing/Shortness of Breath. Meds Comments as of 10/30/2019: Patient is taking propanolol and finishing up with predisone for a rash. Xiomy Mcclellan Ma Problem List As Of Date 04/17/2024 Noted Resolved with uncertain dates [Z34.90] 10/23/2013 10/28/2013 History of heroin abuse (HCC) [F11.11] 10/23/2013 Lost custody of children [Z65.3] 10/23/2013 Heart murmur [R01.1] 10/23/2013 02/23/2014 Attention deficit disorder [F98.8] Asthma [J45.909] 02/23/2014 Fibromyalgia [M79.7] 11/25/2013 Bacterial vaginal infection [N76.0, B96.89] 02/03/2014 08/19/2014 History of labor [Z87.51] 02/20/2014 02/23/2014 with care elsewhere [Z34.90] 02/20/2014 08/19/2014 History of hepatitis C [Z86.19] 02/20/2014 Nausea/vomiting in [O21.9] 02/20/2014 08/19/2014 Leukocytosis [D72.829] 05/29/2014 08/19/2014 Malaise [R53.81] 05/29/2014 08/19/2014 Pneumonia [J18.9] 05/29/2014 08/19/2014 Maternal drug use complicating , antep*06/01/2014 09/03/2015 Tobacco abuse [Z72.0] 09/08/2014 Insomnia [G47.00] 09/08/2014 Depression [F32.A] 09/08/2014 PTSD (post-traumatic stress disorder) [F43.10] 12/07/2014 Threatened [O20.0] 12/23/2014 09/03/2015 Subchorionic hematoma [O41.8X90, O46.8X9] 12/23/2014 09/03/2015 Nausea/vomiting in [O21.9] 01/27/2015 09/03/2015 Group B streptococcal infection during pregnanc*02/08/2015 09/03/2015 Back pain [M54.9] 03/16/2015 Supervision of high-risk [O09.90] 04/02/2015 08/31/2015 Bipolar disorder (HCC) [F31.9] 04/07/2015 Anxiety [F41.9] 04/07/2015 RLS (restless legs synd (more content not included)... Normal [facility] XR Chest PA and Lateralon IMPRESSION: Stable exam with no acute radiographic abnormality. Unit Trust Manager: ABIGAIL Transcribe Date/Time: Apr 04 2024 12:46P Dictated by : DEEPTI HINSON MD This examination was interpreted and the report reviewed and electronically signed by: DEEPTI HINSON MD on Apr 04 2024 12:46PM [facility] DIVISION OF RADIOLOGY * * *Final Report* * * DATE OF EXAM: Apr 04 2024 12:37PM [facility] [id number] - XR CHEST 2V FRONTAL/LAT / PROCEDURE REASON: Acute cough * * * * Physician Interpretation * * * * EXAMINATION: CHEST RADIOGRAPH (2 VIEW FRONTAL & LATERAL) CLINICAL HISTORY: Acute cough MQ: XC2_6 EXAM DATE/TIME: 04/04/2024 12:37 PM COMPARISON: 10/30/2023. RESULT: Lines, tubes, and devices: None. Lungs and pleura: No consolidation. No lung mass. No pleural effusion. No pneumothorax. Cardiomediastinal silhouette: Normal cardiomediastinal silhouette. Bones and soft tissues: Unremarkable. DIVISION OF RADIOLOGY Provider, [facility] - 04/04/2024 * * *Final Report* * * DATE OF EXAM: Apr 04 2024 12:37PM [facility] [id number] - XR CHEST 2V FRONTAL/LAT / PROCEDURE REASON: Acute cough * * * * Physician Interpretation * * * * EXAMINATION: CHEST RADIOGRAPH (2 VIEW FRONTAL & LATERAL) CLINICAL HISTORY: Acute cough MQ: XC2_6 EXAM DATE/TIME: 04/04/2024 12:37 PM COMPARISON: 10/30/2023. RESULT: Lines, tubes, and devices: None. Lungs and pleura: No consolidation. No lung mass. No pleural effusion. No pneumothorax. Cardiomediastinal silhouette: Normal cardiomediastinal silhouette. Bones and soft tissues: Unremarkable. IMPRESSION IMPRESSION: Stable exam with no acute radiographic abnormality. Unit Trust Manager: PSCB Transcribe Date/Time: Apr 04 2024 12:46P Dictated by : DEEPTI HINSON MD This examination was interpreted and the report reviewed and electronically signed by: DEEPTI HINSON MD on Apr 04 2024 12:46PM [facility] Radiology Study observation (narrative) [facility] XR Chest PA and LateralOrder ed By: Ccf Provider on 04-04-2024 [facility] DBT Breast - bilateral diagn ostic for implanton 04-01-2024 * * *Final Report* * * DATE OF EXAM: Apr 01 2024 10:00AM [facility] 0627 - JIM DIAG W ASIF FRED / PROCEDURE REASON: Nipple discharge * * * * Physician Interpretation * * * * RESULT: #[id number] - JIM DIAG W ASIF FRED BILATERAL DIGITAL DIAGNOSTIC MAMMOGRAM TOMOSYNTHESIS WITH CAD: 04/01/2024 HISTORY: Nipple Discharge bilateral /baseline mammogram. RESULT: TECHNIQUE: The study was acquired using full field digital technology and interpreted from soft copy. Digital Breast Tomosynthesis (DBT) images were obtained and used to assist in the interpretation of this examination. Current study was also evaluated with a Computer Aided Detection (CAD). No prior exams were available for comparison. The breasts are extremely dense, which lowers the sensitivity of mammography. No significant masses, calcifications, or other findings are seen in either breast. DIVISION OF RADIOLOGY Provider, [facility] - 04/01/2024 * * *Final Report* * * DATE OF EXAM: Apr 01 2024 10:00AM [facility] 0627 - JIM DIAG W ASIF FRED / PROCEDURE REASON: Nipple discharge * * * * Physician Interpretation * * * * RESULT: #[id number] - JIM DIAG W ASIF FRED BILATERAL DIGITAL DIAGNOSTIC MAMMOGRAM TOMOSYNTHESIS WITH CAD: 04/01/2024 HISTORY: Nipple Discharge bilateral /baseline mammogram. RESULT: TECHNIQUE: The study was acquired using full field digital technology and interpreted from soft copy. Digital Breast Tomosynthesis (DBT) images were obtained and used to assist in the interpretation of this examination. Current study was also evaluated with a Computer Aided Detection (CAD). No prior exams were available for comparison. The breasts are extremely dense, which lowers the sensitivity of mammography. No significant masses, calcifications, or other findings are seen in either breast. IMPRESSION IMPRESSION: INCOMPLETE: NEEDS ADDITIONAL IMAGING EVALUATION There is no abnormality seen in either breast to correspond with the pain, however, clinical followup is recommended. There is no abnormality seen in either breast to correspond with the non-bloody discharge from the nipple which likely represents physiological discharge, however, ultrasound is recommended. Rica akins/edward:04/01/2024 10:00:33 [employer]ing Machine Operator(s): RT Tonny(R)(M), [facility] Mammogram BI-RADS: 0 Incomplete: needs additional imaging evaluation Multiple national specialty organizations have released breast cancer screening guidelines for women at average risk for developing breast cancer - guidelines that are based on both evidence and opinion, yet differ on when to start and how often to screen for breast cancer. With representation from Breast Imaging, Internal Medicine, Women's Health, Family Medicine, and Medical/Surgical Oncology, the [facility] has carefully reviewed the data and reached the following consensus: 1) All women should engage in shared decision-making with their providers to decide when to start and how often to screen; 2) All women should have the opportunity to start screening mammography at age 40; 3) For women ages 45-55, we recommend annual screening mammograms; 4) For women ages 55 and over, we support both the transition from an annual to a biennial interval if this aligns more with patient's values and preferences, or continuation with annual screening; 5) All women should discuss with their providers when to stop screening mammograms. Unit Trust Manager: Edward Transcribe Date/Time: Apr 01 2024 9:21A Dictated by: RICA BA MD This examination was interpreted and the report reviewed and electronically signed by: RICA BA MD on Apr 01 2024 10:00AM EST [facility] DBT Breast - bilateral diagn ostic for implantOrdered By: Ccf Provider on 04-01-2024 [facility] No Panel Informationon 04-01 Radiology Study observation (narrative) [facility] US Breast - left limitedon 0 04-01-2024 IMPRESSION: NEGATIVE There is no sonographic evidence of malignancy. There is no abnormality seen in the left breast to correspond with the non-bloody discharge from the nipple in the sub-areolar depth which is consistent with physiological discharge, however, clinical followup is recommended. Rica akins/edward:04/01/2024 10:24:30 [employer]inking Sew[employer] Machine Operator(s): Earlene Farfan [facility] Ultrasound BI-RADS: 1 Negative Multiple national specialty organizations have released breast cancer screening guidelines for women at average risk for developing breast cancer - guidelines that are based on both evidence and opinion, yet differ on when to start and how often to screen for breast cancer. With representation from Breast Imaging, Internal Medicine, Women's Health, Family Medicine, and Medical/Surgical Oncology, the [facility] has carefully reviewed the data and reached the following consensus: 1) All women should engage in shared decision-making with their providers to decide when to start and how often to screen; 2) All women should have the opportunity to start screening mammography at age 40; 3) For women ages 45-55, we recommend annual screening mammograms; 4) For women ages 55 and over, we support both the transition from an annual to a biennial interval if this aligns more with patient's values and preferences, or continuation with annual screening; 5) All women should discuss with their providers when to stop screening mammograms. Unit Trust Manager: Edward Transcribe Date/Time: Apr 01 2024 10:06A Dictated by : RICA BA MD This examination was interpreted and the report reviewed and electronically signed by: RICA BA MD on Apr 01 2024 10:24AM [facility] DIVISION OF RADIOLOGY * * *Final Report* * * DATE OF EXAM: Apr 01 2024 10:17AM WRU 0593 - JIM [employer] BREAST LTD LT / PROCEDURE REASON: Nipple discharge * * * * Physician Interpretation * * * * #[id number] - JIM US BREAST LTD LT LIMITED ULTRASOUND OF LEFT BREAST: 04/01/2024 HISTORY: Nipple Discharge. RESULT: Comparison is made to exam dated: 04/01/2024 mammogram - [facility]. Color flow and real-time ultrasound of the left breast retroareolar were performed. Grant scale images of the real-time examination were reviewed. DIVISION OF RADIOLOGY Provider, [facility] Turner - 04/01/2024 * * *Final Report* * * DATE OF EXAM: Apr 01 2024 10:17AM WRU 0593 - JIM US BREAST LTD LT / PROCEDURE REASON: Nipple discharge * * * * Physician Interpretation * * * * #[id number] - [facility] US BREAST LTD LT LIMITED ULTRASOUND OF LEFT BREAST: 04/01/2024 HISTORY: Nipple Discharge. RESULT: Comparison is made to exam dated: 04/01/2024 mammogram - [facility]. Color flow and real-time ultrasound of the left breast retroareolar were performed. Grant scale images of the real-time examination were reviewed. IMPRESSION IMPRESSION: NEGATIVE There is no sonographic evidence of malignancy. There is no abnormality seen in the left breast to correspond with the non-bloody discharge from the nipple in the sub-areolar depth which is consistent with physiological discharge, however, clinical followup is recommended. Rica akins/edward:04/01/2024 10:24:30 [employer] Operator(s): Earlene Farfan, [facility] Ultrasound BI-RADS: 1 Negative Multiple national specialty organizations have released breast cancer screening guidelines for women at average risk for developing breast cancer - guidelines that are based on both evidence and opinion, yet differ on when to start and how often to screen for breast cancer. With representation from Breast Imaging, Internal Medicine, Women's Health, Family Medicine, and Medical/Surgical Oncology, the [facility] has carefully reviewed the data and reached the following consensus: 1) All women should engage in shared decision-making with their providers to decide when to start and how often to screen; 2) All women should have the opportunity to start screening mammography at age 40; 3) For women ages 45-55, we recommend annual screening mammograms; 4) For women ages 55 and over, we support both the transition from an annual to a biennial interval if this aligns more with patient's values and preferences, or continuation with annual screening; 5) All women should discuss with their providers when to stop screening mammograms. Unit Trust Manager: Edward Transcribe Date/Time: Apr 01 2024 10:06A Dictated by : RICA BA MD This examination was interpreted and the report reviewed and electronically signed by: RICA BA MD on Apr 01 2024 10:24AM EST [facility] US Breast - right limitedon 04-01-2024 IMPRESSION: NEGATIVE There is no sonographic evidence of malignancy. There is no abnormality seen in the right breast to correspond with the non-bloody discharge from the nipple (milky) in the sub-areolar depth which is consistent with physiological discharge, however, clinical followup is recommended. Rica akins/:04/01/2024 10:21:27 [employer] Machine Operator(s): Earlene Farfan, [facility] Ultrasound BI-RADS: 1 Negative Multiple national specialty organizations have released breast cancer screening guidelines for women at average risk for developing breast cancer - guidelines that are based on both evidence and opinion, yet differ on when to start and how often to screen for breast cancer. With representation from Breast Imaging, Internal Medicine, Women's Health, Family Medicine, and Medical/Surgical Oncology, the [facility] has carefully reviewed the data and reached the following consensus: 1) All women should engage in shared decision-making with their providers to decide when to start and how often to screen; 2) All women should have the opportunity to start screening mammography at age 40; 3) For women ages 45-55, we recommend annual screening mammograms; 4) For women ages 55 and over, we support both the transition from an annual to a biennial interval if this aligns more with patient's values and preferences, or continuation with annual screening; 5) All women should discuss with their providers when to stop screening mammograms. Unit Trust Manager: Edward Transcribe Date/Time: Apr 01 2024 10:06A Dictated by : RICA BA MD This examination was interpreted and the report reviewed and electronically signed by: RICA BA MD on Apr 01 2024 10:21AM [facility] DIVISION OF RADIOLOGY * * *Final Report* * * DATE OF EXAM: Apr 01 2024 10:17AM U 0594 - JIM US BREAST LTD RT / PROCEDURE REASON: Nipple discharge * * * * Physician Interpretation * * * * #[id number] - [facility]IM US BREAST LTD RT LIMITED ULTRASOUND OF RIGHT BREAST: 04/01/2024 HISTORY: Nipple Discharge. RESULT: Comparison is made to exam dated: 04/01/2024 mammogram - [facility]. Color flow and real-time ultrasound of the right breast retroareolar were performed. Grant scale images of the real-time examination were reviewed. DIVISION OF RADIOLOGY Provider, Thi Siena [facility] - 04/01/2024 * * *Final Report* * * DATE OF EXAM: Apr 01 2024 10:17AM U 0594 - JIM US BREAST LTD RT / PROCEDURE REASON: Nipple discharge * * * * Physician Interpretation * * * * #[id number] - JIM US BREAST LTD RT LIMITED ULTRASOUND OF RIGHT BREAST: 04/01/2024 HISTORY: Nipple Discharge. RESULT: Comparison is made to exam dated: 04/01/2024 mammogram - [facility]. Color flow and real-time ultrasound of the right breast retroareolar were performed. Grant scale images of the real-time examination were reviewed. IMPRESSION IMPRESSION: NEGATIVE There is no sonographic evidence of malignancy. There is no abnormality seen in the right breast to correspond with the non-bloody discharge from the nipple (milky) in the sub-areolar depth which is consistent with physiological discharge, however, clinical followup is recommended. Rica Ba M.D. djg/:04/01/2024 10:21:27 [employer]inking Sewing Machine Operator(s): Earlene Farfan, [facility] Ultrasound BI-RADS: 1 Negative Multiple national specialty organizations have released breast cancer screening guidelines for women at average risk for developing breast cancer - guidelines that are based on both evidence and opinion, yet differ on when to start and how often to screen for breast cancer. With representation from Breast Imaging, Internal Medicine, Women's Health, Family Medicine, and Medical/Surgical Oncology, the [facility] has carefully reviewed the data and reached the following consensus: 1) All women should engage in shared decision-making with their providers to decide when to start and how often to screen; 2) All women should have the opportunity to start screening mammography at age 40; 3) For women ages 45-55, we recommend annual screening mammograms; 4) For women ages 55 and over, we support both the transition from an annual to a biennial interval if this aligns more with patient's values and preferences, or continuation with annual screening; 5) All women should discuss with their providers when to stop screening mammograms. Unit Trust Manager: Edward Transcribe Date/Time: Apr 01 2024 10:06A Dictated by : RICA BA MD This examination was interpreted and the report reviewed and electronically signed by: RICA BA MD on Apr 01 2024 10:21AM EST [facility] US Breast - right limitedOrd ered By: Ccf Provider on 04-01-2024 [facility] COVID & INFLUENZA A/B & RSV NAAT, ROUTINEon 01-09-2024 FLUAV RNA DEBBIE+probe Ql (Unsp spec) Not detected Not Detected [facility] FLUBV RNA DEBBIE+probe Ql (Unsp spec) Not detected Not Detected [facility] RSV A RNA DEBBIE+probe Ql (Unsp spec) Not detected Not Detected [facility] SARS-CoV-2 (COVID-19) RNA DEBBIE+probe Ql (Resp) Not detected See comment [facility] STREP A MOLECULAR (POC)on Procedural Control Valid [facility] Strep A (POCT) Negative Negative [facility] .Auto Diffon 12-17-2023 Basophil, Absolute 0.1 10 3/mcL Normal 0.0-0.2 [facility] ([place]) Comment on above: Performed By: #### C CONCHITA PEREZ, OSCAR, CMP, ANEU, LIP, GFR #### [address] [address] Basophils/100 WBC (Bld) 1.1 % Normal 0.0-2.5 [facility] ([place]) Comment on above: Performed By: #### C CONCHITA PEREZ, OSCAR, CMP, ANEU, LIP, GFR #### [address] [address] Eosinophil, Absolute 0.5 10 3/mcL High 0.0-0.4 [facility] ([place]) Comment on above: Performed By: #### C CONCHITA PEREZ, OSCAR, CMP, ANEU, LIP, GFR #### [address] [address] Eosinophils/100 WBC (Bld) 6.6 % Normal 0.0-7.0 [facility] ([place]) Comment on above: Performed By: #### C CONCHITA PEREZ, ADIFF, CMP, ANEU, LIP, GFR #### [address] [address] Lymphocyte, Absolute 2.6 10 3/mcL Normal 0.8-3.9 [facility] ([place]) Comment on above: Performed By: #### C CONCHITA PEREZ, ANYIIFF, CMP, ANEU, LIP, GFR #### [address] [address] Lymphocytes/100 WBC (Bld) 34.4 % Normal 10.0-50.0 [facility] ([place]) Comment on above: Performed By: #### C CONCHITA PEREZ, OSCAR, CMP, ANEU, LIP, GFR #### [address] [address] Monocyte, Absolute 0.6 10 3/mcL Normal 0.2-1.0 [facility] ([place]) Comment on above: Performed By: #### C CONCHITA PEREZ, OSCAR, CMP, ANEU, LIP, GFR #### [address] [address] Monocytes/100 WBC (Bld) 7.8 % Normal 1.7-13.0 [facility] ([place]) Comment on above: Performed By: #### C CONCHITA PEREZ, OSCAR, CMP, ANEU, LIP, GFR #### [address] [address] Neutrophils/100 WBC (Bld) 50.1 % Normal 37.0-80.0 [facility] ([place]) Comment on above: Performed By: #### C CONCHITA PEREZ, OSCAR, CMP, ANEU, LIP, GFR #### [address] [address] .GFRon 12-17-2023 GFR Non- 67 ml/min/1.73sqm Normal [facility] ([place]) Comment on above: Result Comment: GFR Population mean for , Non- Americans Ages 20-29 = 116 mL/min/1.73 sq.m. Ages 30-39 = 107 mL/min/1.73 sq.m. Ages 40-49 = 99 mL/min/1.73 sq.m. Ages 50-59 = 93 mL/min/1.73 sq.m. Ages 60-69 = 85 mL/min/1.73 sq.m. Ages 70+ = 75 mL/min/1.73 sq.m. Chronic Kidney Disease: Less than 60 mL/min/1.73 square meters End Stage Renal Disease: Less than 15 mL/min/1.73 square meters Performed By: #### C CONCHITA PEREZ, OSCAR, CMP, ANEU, LIP, GFR #### [address] [address] GFR 81 ml/min/1.73sqm Normal [facility] ([place]) Comment on above: Result Comment: GFR Population mean for , Non- Americans Ages 20-29 = 116 mL/min/1.73 sq.m. Ages 30-39 = 107 mL/min/1.73 sq.m. Ages 40-49 = 99 mL/min/1.73 sq.m. Ages 50-59 = 93 mL/min/1.73 sq.m. Ages 60-69 = 85 mL/min/1.73 sq.m. Ages 70+ = 75 mL/min/1.73 sq.m. Chronic Kidney Disease: Less than 60 mL/min/1.73 square meters End Stage Renal Disease: Less than 15 mL/min/1.73 square meters Performed By: #### C CONCHITA PEREZ, OSCAR, CMP, ANEU, LIP, GFR #### [address] [address] .MDWon 12-17-2023 Monocyte Distribution Width 16.18 Normal 0.00-20.00 [facility] ([place]) Comment on above: Result Comment: For ED adult patients suspected of sepsis, MDW<=20.0 does not rule out sepsis or risk of sepsis Performed By: #### C CONCHITA PEREZ, OSCAR, CMP, ANEU, LIP, GFR #### [address] [address] .NEUABSon 12-17-2023 Neutrophil, Absolute 3.8 10 3/mcL Normal 2.9-6.2 [facility] ([place]) Comment on above: Performed By: #### C CONCHITA PEREZ, OSCAR, CMP, ANEU, LIP, GFR #### [address] [address] CBCon 12-17-2023 Erythrocyte distribution width (RBC) [Ratio] 13.5 % Normal 11.5-14.5 [facility] ([place]) Comment on above: Performed By: #### C CONCHITA PEREZ, OSCAR, CMP, ANEU, LIP, GFR #### [address] [address] Hematocrit (Bld) [Volume fraction] 41.5 % Normal 37.0-47.0 [facility] ([place]) Comment on above: Performed By: #### C CONCHITA PEREZ, OSCAR, CMP, ANEU, LIP, GFR #### [place] [address] Hgb 14.1 G/dL Normal 12.0-16.0 [facility] ([place]) Comment on above: Performed By: #### C CONCHITA PEREZ, OSCAR, CMP, ANEU, LIP, GFR #### [place] [address] MCH (RBC) [Entitic mass] 28.5 pg Normal 27.0-31.2 [facility] ([place]) Comment on above: Performed By: #### C CONCHITA PEREZ, OSCAR, CMP, ANEU, LIP, GFR #### [place] [address] MCHC 34.0 G/dL Normal 33.0-37.0 [facility] ([place]) Comment on above: Performed By: #### C CONCHITA PEREZ, OSCAR, CMP, ANEU, LIP, GFR #### [place] [address] MCV (RBC) [Entitic vol] 83.9 fL Normal 80.0-94.0 [facility] ([place]) Comment on above: Performed By: #### C CONCHITA PEREZ, OSCAR, CMP, ANEU, LIP, GFR #### [place] [address] Platelet 285 10 3/mcL Normal 130-400 [facility] ([place]) Comment on above: Performed By: #### C CONCHITA PEREZ, OSCAR, CMP, ANEU, LIP, GFR #### [place] [address] Platelet mean volume (Bld) [Entitic vol] 7.3 fL Low 7.4-10.4 [facility] ([place]) Comment on above: Performed By: #### C CONCHITA PEREZ, ADIFF, CMP, ANEU, LIP, GFR #### [address] [address] RBC 4.95 10 6/mcL Normal 4.20-5.40 [facility] ([place]) Comment on above: Performed By: #### C CONCHITA PEREZ, ANYIIFF, CMP, ANEU, LIP, GFR #### [address] [address] WBC 7.5 10 3/mcL Normal 4.6-10.8 [facility] ([place]) Comment on above: Performed By: #### C CONCHITA PEREZ, ANYIIFF, CMP, ANEU, LIP, GFR #### [address] [address] CMPon 12-17-2023 Albumin Level 4.0 G/dL Normal 3.5-5.0 [facility] ([place]) Comment on above: Performed By: #### C CONCHITA PEREZ, OSCAR, CMP, ANEU, LIP, GFR #### [address] [address] Albumin/Globulin [Mass ratio] 1.1 {ratio} Normal 1.1-2.5 [facility] ([place]) Comment on above: Performed By: #### C CONCHITA PEREZ, OSCAR, CMP, ANEU, LIP, GFR #### [address] [address] ALP [Catalytic activity/Vol] 84 U/L Normal 40-135 [facility] ([place]) Comment on above: Performed By: #### C CONCHITA PEREZ, ANYIIFF, CMP, ANEU, LIP, GFR #### [address] [address] ALT [Catalytic activity/Vol] 31 U/L Normal 14-59 [facility] ([place]) Comment on above: Performed By: #### C CONCHITA PEREZ, ADIFF, CMP, ANEU, LIP, GFR #### [address] [address] AST [Catalytic activity/Vol] 28 U/L Normal 10-40 [facility] ([place]) Comment on above: Performed By: #### C CONCHITA PEREZ, OSCAR, CMP, ANEU, LIP, GFR #### [address] [address] Bili Total 0.3 mg/dL Normal 0.2-1.0 [facility] ([place]) Comment on above: Result Comment: Use of this assay is not recommended for patients undergoing treatment with eltrombopag due to the potential for falsely elevated results. Performed By: #### C CONCHITA PEREZ, OSCAR, CMP, ANEU, LIP, GFR #### [address] [address] BUN/Creatinine Ratio 11 ratio Normal 7-27 [facility] ([place]) Comment on above: Performed By: #### C CONCHITA PEREZ, OSCAR, CMP, ANEU, LIP, GFR #### [address] [address] Calcium [Mass/Vol] 9.7 mg/dL Normal 8.4-10.2 [facility] ([place]) Comment on above: Performed By: #### C CONCHITA PEREZ, OSCAR, CMP, ANEU, LIP, GFR #### [address] [address] Chloride [Moles/Vol] 102 mmol/L Normal 98-107 [facility] ([place]) Comment on above: Performed By: #### C CONCHITA PEREZ, OSCAR, CMP, ANEU, LIP, GFR #### [address] [address] CO2 [Moles/Vol] 27 mmol/L Normal 22-29 [facility] ([place]) Comment on above: Performed By: #### C CONCHITA PEREZ, OSCAR, CMP, ANEU, LIP, GFR #### [address] [address] Creatinine [Mass/Vol] 0.96 mg/dL Normal 0.55-1.02 [facility] ([place]) Comment on above: Performed By: #### C CONCHITA PEREZ, OSCAR, CMP, ANEU, LIP, GFR #### [address] [address] Electrolyte Balance 10.0 mEq/L Normal 4.0-15.0 [facility] ([place]) Comment on above: Performed By: #### C CONCHITA PEREZ, OSCAR, CMP, ANEU, LIP, GFR #### [address] [address] Globulin 3.8 G/dL Normal [facility] ([place]) Comment on above: Performed By: #### C CONCHITA PEREZ, OSCAR, CMP, ANEU, LIP, GFR #### [address] [address] Glucose [Mass/Vol] 89 mg/dL Normal 70-105 [facility] ([place]) Comment on above: Performed By: #### C CONCHITA PEREZ, OSCAR, CMP, ANEU, LIP, GFR #### [address] [address] Potassium [Moles/Vol] 4.7 mmol/L Normal 3.5-5.1 [facility] ([place]) Comment on above: Performed By: #### C CONCHITA PEREZ, OSCAR, CMP, ANEU, LIP, GFR #### [address] [address] Sodium [Moles/Vol] 139 mmol/L Normal 136-145 [facility] ([place]) Comment on above: Performed By: #### CONCHITA MARIE, OSCAR, CMP, ANEU, LIP, GFR #### [address] [address] Total Protein 7.8 G/dL Normal 6.4-8.2 [facility] ([place]) Comment on above: Performed By: #### CONCHITA MARIE, OSCAR, CMP, ANEU, LIP, GFR #### [address] [address] Urea nitrogen [Mass/Vol] 11 mg/dL Normal 7-18 [facility] ([place]) Comment on above: Performed By: #### C BC, MDW, ADIFF, CMP, ANEU, LIP, GFR #### [place] [id number] [place], [place] [address] CT ABD/PELVIS W/ IV CONTRAST ONLYon 12-17-2023 CT ABD/PELVIS W/ IV CONTRAST ONLY ORIGINAL EXAMINATION: CT OF THE ABDOMEN AND PELVIS WITH CONTRAST 12/17/2023 4:23 pm TECHNIQUE: CT of the abdomen and pelvis was performed with the administration of intravenous contrast. Multiplanar reformatted images are provided for review. Automated exposure control, iterative reconstruction, and/or weight based adjustment of the mA/kV was utilized to reduce the radiation dose to as low as reasonably achievable. COMPARISON: None. HISTORY: ORDERING SYSTEM PROVIDED HISTORY: Reason for Exam: Right-sided abdominal pain for 2 weeks, nausea, vomiting, alternating constipation and diarrhea FINDINGS: Lower Chest: Mild bilateral lower lobe atelectasis. The lung bases are otherwise clear. Organs: Status post cholecystectomy. The liver, spleen, adrenal glands, and pancreas are within normal limits. Symmetric renal enhancement bilaterally. No hydronephrosis. GI/Bowel: Small duodenal diverticulum. No abnormal bowel dilation. Normal appendix. No free air. Pelvis: The bladder and uterus appear grossly unremarkable. No free fluid in the pelvis. Peritoneum/Retroperito neum: Nonaneurysmal aorta. No lymphadenopathy. Bones/Soft Tissues: Left anterior abdominal wall focal areas of nonspecific stranding likely secondary to recent injections. No acute osseous abnormality. IMPRESSION: No acute findings. I have personally reviewed the images of this examination and agree with the resident's findings and interpretation. Interpreted by: Pascual Mark Preliminary Report By: Filiberto Dorsey Electronically signed By Pascual Mark Dictated Date: 12/17/2023 4:28:02 PM Prelim Date: 12/17/2023 4:33:59 PM Sign Date: 12/17/2023 4:39:59 PM Ordering Provider: MAURICIO Block [facility] ([place]) LABORATORYOrdered By: SYSTEM SYSTEM on 12-17-2023 Albumin BCP dye [Mass/Vol] 4.0 G/dL Normal 3.5 - 5.0 G/dL AO ADM SS Albumin/Globulin [Mass ratio] 1.1 {ratio} Normal 1.1 - 2.5 ratio AO ADM SS ALP [Catalytic activity/Vol] 84 U/L Normal 40 - 135 U/L AO ADM SS ALT With P-5'-P [Catalytic activity/Vol] 31 U/L Normal 14 - 59 U/L AO ADM SS AST With P-5'-P [Catalytic activity/Vol] 28 U/L Normal 10 - 40 U/L AO ADM SS Basophil, Absolute 0.1 103/mcL Normal 0.0 - 0.2 10^3/mcL AO Workflow SS Basophils/100 WBC (Bld) 1.1 % Normal 0.0 - 2.5 % AO Workflow SS Bilirubin [Mass/Vol] 0.3 mg/dL Normal 0.2 - 1 .0 mg/dL AO ADM SS Comment on above: Interpretive Data: U se of this assay is not recommended for patients undergoing treatment with eltrombopag due to the potential for falsely elevated results. Calcium [Mass/Vol] 9.7 mg/dL Normal 8.4 - 10. 2 mg/dL AO ADM SS Chloride [Moles/Vol] 102 mmol/L Normal 98 - 10 7 mmol/L AO ADM SS CO2 [Moles/Vol] 27 mmol/L Normal 22 - 29 mmol/L AO ADM SS Creatinine [Mass/Vol] 0.96 mg/dL Normal 0.55 - 1.02 mg/dL AO ADM SS Electrolyte Balance 10.0 mEq/L Normal 4.0 - 15 .0 mEq/L AO ADM SS Eosinophil, Absolute 0.5 103/mcL High 0.0 - 0 .4 10^3/mcL AO Workflow SS Eosinophils/100 WBC (Bld) 6.6 % Normal 0.0 - 7.0 % AO Workflow SS Erythrocyte distribution width (RBC) [Ratio] 13.5 % Normal 11.5 - 14.5 % AO Workflow SS GFR/1.73 sq M.predicted among blacks MDRD (S/P/Bld) [Vol rate/Area] 81 ml/min/1.73sqm Invalid Interpretation Code AO Chemistry S Comment on above: Interpretive Data: GFR Population mean for , Non- Americans Ages 20-29 = 116 mL/min/1.73 sq.m. Ages 30-39 = 107 mL/min/1.73 sq.m. Ages 40-49 = 99 mL/min/1.73 sq.m. Ages 50-59 = 93 mL/min/1.73 sq.m. Ages 60-69 = 85 mL/min/1.73 sq.m. Ages 70+ = 75 mL/min/1.73 sq.m. Chronic Kidney Disease: Less than 60 mL/min/1.73 square meters End Stage Renal Disease: Less than 15 mL/min/1.73 square meters GFR/1.73 sq M.predicted among non-blacks MDRD (S/P/Bld) [Vol rate/Area] 67 ml/min/1.73sqm Invalid Interpretation Code AO Chemistry S Comment on above: Interpretive Data: GFR Population mean for , Non- Americans Ages 20-29 = 116 mL/min/1.73 sq.m. Ages 30-39 = 107 mL/min/1.73 sq.m. Ages 40-49 = 99 mL/min/1.73 sq.m. Ages 50-59 = 93 mL/min/1.73 sq.m. Ages 60-69 = 85 mL/min/1.73 sq.m. Ages 70+ = 75 mL/min/1.73 sq.m. Chronic Kidney Disease: Less than 60 mL/min/1.73 square meters End Stage Renal Disease: Less than 15 mL/min/1.73 square meters Globulin 3.8 G/dL Invalid Interpretation Code AO ADM SS Glucose [Mass/Vol] 89 mg/dL Normal 70 - 105 mg/dL AO ADM SS Hematocrit (Bld) [Volume fraction] 41.5 % Normal 37.0 - 47.0 % AO Workflow SS Hemoglobin (Bld) [Mass/Vol] 14.1 G/dL Normal 12.0 - 16.0 G/dL AO Workflow SS Lipase [Catalytic activity/Vol] 13 U/L Low 16 - 77 U/L AO ADM SS Lymphocyte, Absolute 2.6 103/mcL Normal 0.8 - 3 .9 10^3/mcL AO Workflow SS Lymphocytes/100 WBC (Bld) 34.4 % Normal 10.0 - 50.0 % AO Workflow SS MCH (RBC) [Entitic mass] 28.5 pg Normal 27.0 - 31.2 pg AO Workflow SS MCHC 34.0 G/dL Normal 33.0 - 37.0 G/dL AO Workflow SS MCV (RBC) [Entitic vol] 83.9 fL Normal 80.0 - 94.0 fL AO Workflow SS Monocyte distribution width Auto (Bld) [Entitic vol] 16.18 1 Normal 0.00 - 20.00 AO Workflow SS Comment on above: Result Comment: For ED adult patients suspected of sepsis, MDW<=20.0 does not rule out sepsis or risk of sepsis Monocyte, Absolute 0.6 103/mcL Normal 0.2 - 1.0 10^3/mcL AO Workflow SS Monocytes/100 WBC (Bld) 7.8 % Normal 1.7 - 13.0 % AO Workflow SS Neutrophil, Absolute 3.8 103/mcL Normal 2.9 - 6 .2 10^3/mcL AO Workflow SS Neutrophils/100 WBC (Bld) 50.1 % Normal 37.0 - 80.0 % AO Workflow SS Platelet mean volume (Bld) [Entitic vol] 7.3 fL Low 7.4 - 10.4 fL AO Workflow SS Platelets (Bld) [#/Vol] 285 103/mcL Normal 130 - 400 10^3/mcL AO Workflow SS Potassium [Moles/Vol] 4.7 mmol/L Normal 3.5 - 5.1 mmol/L AO ADM SS Protein [Mass/Vol] 7.8 G/dL Normal 6.4 - 8.2 G/dL AO ADM SS RBC (Bld) [#/Vol] 4.95 106/mcL Normal 4.20 - 5.4 0 10^6/mcL AO Workflow SS Sodium [Moles/Vol] 139 mmol/L Normal 136 - 145 mmol/L AO ADM SS Urea nitrogen [Mass/Vol] 11 mg/dL Normal 7 - 18 mg/dL AO ADM SS Urea nitrogen/Creatinine [Mass ratio] 11 ratio Normal 7 - 27 ratio AO ADM SS WBC (Bld) [#/Vol] 7.5 103/mcL Normal 4.6 - 10.8 10^3/mcL AO Workflow SS LABORATORYOrdered By: Pradeep Carlson on 12-17-2023 Appearance (U) Clear (12/17/23 2:59 PM) Normal Clear AO Auto Urine SS Bilirubin Ql (U) Negative (12/17/23 2:59 PM) Normal Negative AO Auto Urine SS Color (U) Yellow (12/17/23 2:59 PM) Normal AO Auto Urine SS Glucose Test strip (U) [Mass/Vol] Negative Normal Negative AO Auto Urine SS Hemoglobin Auto test strip (U) [Mass/Vol] Negative (12/17/23 2:59 PM) Normal Negative AO Auto Urine SS Ketones Ql (U) Negative Normal Negative AO Auto Ur ine SS UA Leuk Est Negative (12/17/23 2:59 PM) Normal Negative AO Auto Urine SS UA Nitrite Negative (12/17/23 2:59 PM) Normal Negative AO Auto Urine SS UA pH 7.0 (12/17/23 2:59 PM) Normal 5.0 - 8.0 AO Auto Urine SS UA Protein Negative Normal Negative AO Auto Urine SS UA Spec Grav 1.020 (12/17/23 2:59 PM) Normal 1.015-1.025 AO Auto Urine SS UA Specimen Type Clean Catch (12/17/23 2:59 PM) Normal AO Auto Urine SS UA Urobilinogen 0.2 E.U./dL Normal 0.2-1.0 AO Auto Urine SS LABORATORYOrdered By: Edwardo washburn on 12-17-2023 HCG ( test) Ql Negative (12/17/23 2:59 PM) Normal AO Manual Urine SS test (u) int Not detected Invalid Interpretation Code AO Manual Urine SS LIPon 12-17-2023 Lipase Level 13 U/L Low 16-77 [facility] ([place]) Comment on above: Performed By: #### C ANA, W, OSCAR, CMP, ANEU, LIP, GFR #### [address] [address] PREGUon 12-17-2023 HCG ( test) Ql (U) Negative Normal [facility] ([place]) Comment on above: Performed By: #### U A, PREGU #### [address] [address] test (u) int Not detected Invalid Interpretation Code [facility] ([place]) Comment on above: Performed By: #### U A, PREGU #### [address] [address] UAon 12-17-2023 Color (U) Yellow Normal [facility] ([place]) Comment on above: Performed By: #### U A, PREGU #### [address] [address] Glucose (U) [Mass/Vol] Negative Normal Negative [facility] ([place]) Comment on above: Performed By: #### U A, PREGU #### [address] [address] Ketones Ql (U) Negative Normal Negative [facility] ([place]) Comment on above: Performed By: #### U A, PREGU #### [place] [address] UA Appear Clear Normal Clear [facility] ([place]) Comment on above: Performed By: #### U A, PREGU #### [place] [address] UA Blood Negative Normal Negative [facility] ([place]) Comment on above: Performed By: #### U A, PREGU #### [place] [address] UA Leuk Est Negative Normal Negative [facility] ([place]) Comment on above: Performed By: #### U A, PREGU #### [place] [address] UA Nitrite Negative Normal Negative [facility] ([place]) Comment on above: Performed By: #### U A, PREGU #### [place] [address] UA pH 7.0 Normal 5.0 - 8.0 [facility] ([place]) Comment on above: Performed By: #### U A, PREGU #### [place] [address] UA Protein Negative Normal Negative [facility] ([place]) Comment on above: Performed By: #### U A, PREGU #### [place] [address] UA Spec Grav 1.020 Normal 1.015-1.025 [facility] ([place]) Comment on above: Performed By: #### U A, PREGU #### [place] [address] UA Specimen Type Clean Catch Normal [facility] ([place]) Comment on above: Performed By: #### U A, PREGU #### [facility] [address] [place], [place] [address] UA Urobilinogen 0.2 E.U./dL Normal 0.2-1.0 [facility] ([place]) Comment on above: Performed By: #### U A, PREGU #### [facility] [address] [place], [place] [address] Urobilinogen (U) [Mass/Vol] Negative Normal Negative [facility] ([place]) Comment on above: Performed By: #### U A, PREGU #### [address] [address] No Panel Informationon 12-10 [facility] XR Chest PA and Lateralon IMPRESSION: No acute radiographic abnormality. Unit Trust Manager: ABIGAIL Transcribe Date/Time: Oct 30 2023 10:58A Dictated by : YUE ROTH MD This examination was interpreted and the report reviewed and electronically signed by: YUE ROTH MD on Oct 30 2023 10:58AM [facility] DIVISION OF RADIOLOGY * * *Final Report* * * DATE OF EXAM: Oct 30 2023 10:43AM WOX 5291 - XR CHEST 2V FRONTAL/LAT / PROCEDURE REASON: Acute cough * * * * Physician Interpretation * * * * EXAMINATION: CHEST RADIOGRAPH (2 VIEW FRONTAL & LATERAL) CLINICAL HISTORY: Acute cough MQ: XC2_6 EXAM DATE/TIME: 10/30/2023 10:43 AM COMPARISON: Chest x-ray on 10/24/2023 RESULT: Lines, tubes, and devices: None. Lungs and pleura: No consolidation. No lung mass. No pleural effusion. No pneumothorax. Cardiomediastinal silhouette: Normal cardiomediastinal silhouette. Bones and soft tissues: Unremarkable. DIVISION OF RADIOLOGY Provider, [facility] - 10/30/2023 * * *Final Report* * * DATE OF EXAM: Oct 30 2023 10:43AM WOX 5291 - XR CHEST 2V FRONTAL/LAT / PROCEDURE REASON: Acute cough * * * * Physician Interpretation * * * * EXAMINATION: CHEST RADIOGRAPH (2 VIEW FRONTAL & LATERAL) CLINICAL HISTORY: Acute cough MQ: XC2_6 EXAM DATE/TIME: 10/30/2023 10:43 AM COMPARISON: Chest x-ray on 10/24/2023 RESULT: Lines, tubes, and devices: None. Lungs and pleura: No consolidation. No lung mass. No pleural effusion. No pneumothorax. Cardiomediastinal silhouette: Normal cardiomediastinal silhouette. Bones and soft tissues: Unremarkable. IMPRESSION IMPRESSION: No acute radiographic abnormality. Unit Trust Manager: ABIGAIL Transcribe Date/Time: Oct 30 2023 10:58A Dictated by : YUE ROTH MD This examination was interpreted and the report reviewed and electronically signed by: YUE ROTH MD on Oct 30 2023 10:58AM EST [facility] Radiology Study observation (narrative) [facility] XR Chest PA and LateralOrder ed By: Ccf Provider on 10-30-2023 [facility] XR Chest PA and Lateralon IMPRESSION: No acute radiographic abnormality. Unit Trust Manager[facility] Transcribe Date/Time: Oct 24 2023 12:53P Dictated by : CHOLO BLACKWOOD MD This examination was interpreted and the report reviewed and electronically signed by: CHOLO BLACKWOOD MD on Oct 24 2023 12:54PM EST DIVISION OF RADIOLOGY * * *Final Report* * * DATE OF EXAM: Oct 24 2023 12:53PM WOX 5291 - XR CHEST 2V FRONTAL/LAT / PROCEDURE REASON: Bronchitis * * * * Physician Interpretation * * * * EXAMINATION: CHEST RADIOGRAPH (2 VIEW FRONTAL & LATERAL) CLINICAL HISTORY: Bronchitis MQ: XC2_6 EXAM DATE/TIME: 10/24/2023 12:53 PM COMPARISON: 05/29/2014 RESULT: Lines, tubes, and devices: None. Lungs and pleura: No consolidation. No lung mass. No pleural effusion. No pneumothorax. Cardiomediastinal silhouette: Normal cardiomediastinal silhouette. Bones and soft tissues: Unremarkable. DIVISION OF RADIOLOGY Provider, Barbara Wren [facility] - 10/24/2023 * * *Final Report* * * DATE OF EXAM: Oct 24 2023 12:53PM WOX 5291 - XR CHEST 2V FRONTAL/LAT / PROCEDURE REASON: Bronchitis * * * * Physician Interpretation * * * * EXAMINATION: CHEST RADIOGRAPH (2 VIEW FRONTAL & LATERAL) CLINICAL HISTORY: Bronchitis MQ: XC2_6 EXAM DATE/TIME: 10/24/2023 12:53 PM COMPARISON: 05/29/2014 RESULT: Lines, tubes, and devices: None. Lungs and pleura: No consolidation. No lung mass. No pleural effusion. No pneumothorax. Cardiomediastinal silhouette: Normal cardiomediastinal silhouette. Bones and soft tissues: Unremarkable. IMPRESSION IMPRESSION: No acute radiographic abnormality. Unit Trust Manager: PSCB Transcribe Date/Time: Oct 24 2023 12:53P Dictated by : CHOLO BLACKWOOD MD This examination was interpreted and the report reviewed and electronically signed by: CHOLO BLACKWOOD MD on Oct 24 2023 12:54PM EST [facility] Radiology Study observation (narrative) [facility] XR Chest PA and LateralOrder ed By: Ccf Provider on 10-24-2023 [facility] UA DIP, URINE (POC)on 2022 BILIRUBIN UA (POCT) Negative Negative [facility] CLARITY UA (POCT) Clear [facility] COLOR UA (POCT) Yellow [facility] GLUCOSE UA (POCT) Negative Negative mg/dL [facility] Hemoglobin Ql (U) Negative Negative [facility] KETONE UA (POCT) Negative Negative mg/dL [facility] LEUKOCYTES UA (POCT) Negative Negative [facility] NITRITE UA (POCT) Negative Negative [facility] PH UA (POCT) 5.5 4.5 - 8.0 [facility] Protein Ql (U) Negative Negative mg/dL [facility] SPECIFIC GRAVITY UA (POCT) 1.025 1.005 - 1.030 [facility] UROBILINOGEN UA (POCT) 0.2 E.U./dL Normal E.U./dL [facility] CBC panel Auto (Bld)on 04-12 Erythrocyte distribution width (RBC) [Ratio] 11.9 % 11.5 - 15.0 % [facility] Hematocrit (Bld) [Volume fraction] 38.9 % 36.0 - 46.0 % [facility] Hemoglobin (Bld) [Mass/Vol] 13.0 g/dL 11.5 - 15.5 g/dL [facility] MCH (RBC) [Entitic mass] 28.3 pg 26.0 - 34.0 pg [facility] MCHC (RBC) [Mass/Vol] 33.4 g/dL 30.5 - 36.0 g/dL [facility] MCV (RBC) [Entitic vol] 84.7 fL 80.0 - 100.0 fL [facility] Nucleated RBC (Bld) [#/Vol] <0.01 k/uL [facility] Platelet mean volume (Bld) [Entitic vol] 11.8 fL 9.0 - 12.7 fL [facility] Platelets (Bld) [#/Vol] 158 10*3/uL 150 - 400 k/uL [facility] RBC (Bld) [#/Vol] 4.59 10*6/uL 3.90 - 5.2 0 m/uL [facility] WBC (Bld) [#/Vol] 6.33 10*3/uL 3.70 - 11. 00 k/uL [facility] US FEMALE PELVIS TRANSVAGon 04-12-2023 [facility] UA DIP, URINE (POC)on 2022 BILIRUBIN UA (POCT) Negative Negative [facility] CLARITY UA (POCT) Clear [facility] COLOR UA (POCT) Yellow [facility] GLUCOSE UA (POCT) Negative Negative mg/dL [facility] HEMOGLOBIN/BLOOD UA (POCT) Negative Negative [facility] KETONE UA (POCT) Negative Negative mg/dL [facility] LEUKOCYTES UA (POCT) Negative Negative [facility] NITRITE UA (POCT) Negative Negative [facility] PH UA (POCT) 6.0 4.5 - 8.0 [facility] Protein Ql (U) Trace Abnormal Negative mg/dL [facility] SPECIFIC GRAVITY UA (POCT) >=1.030 1.005 - 1.030 [facility] UROBILINOGEN UA (POCT) 0.2 E.U./dL Normal E.U./dL [facility] HCG QUAL URon 02-02-2023 HCG ( test) Ql (U) Negative Negative [facility] No Panel Informationon 02-02 [facility] UA DIP, URINE (POC)on 2022 BILIRUBIN UA (POCT) Negative Negative [facility] CLARITY UA (POCT) Clear [facility] COLOR UA (POCT) Yellow [facility] GLUCOSE UA (POCT) Negative Negative mg/dL [facility] HEMOGLOBIN/BLOOD UA (POCT) Negative Negative [facility] KETONE UA (POCT) Negative Negative mg/dL [facility] LEUKOCYTES UA (POCT) Negative Negative [facility] NITRITE UA (POCT) Negative Negative [facility] PH UA (POCT) 6.0 4.5 - 8.0 [facility] Protein Ql (U) Negative Negative mg/dL [facility] SPECIFIC GRAVITY UA (POCT) 1.015 1.005 - 1.030 [facility] UROBILINOGEN UA (POCT) 0.2 E.U./dL Normal E.U./dL [facility] XR Abdomen Supine and Uprigh ton 01-02-2023 IMPRESSION: Moderate stool burden. Unit Trust Manager: ABIGAIL Transcribe Date/Time: Jan 02 2023 1:39P Dictated by : YUE ROTH MD This examination was interpreted and the report reviewed and electronically signed by: YUE ROTH MD on Jan 02 2023 1:54PM [facility] DIVISION OF RADIOLOGY * * *Final Report* * * DATE OF EXAM: Jan 01 2023 2:47PM WOX 5289 - XR ABDOMEN 1V SUPINE / PROCEDURE REASON: multiple diagnoses * * * * Physician Interpretation * * * * EXAM TITLE: XR ABDOMEN 1V SUPINE EXAM DATE/TIME: 01/01/2023 2:47 PM COMPARISON: None. CLINICAL INDICATION/HISTORY: Evaluate fecal load. TECHNIQUE: AP views of the abdomen are presented. FINDINGS: No abnormally dilated bowel loops identified. Moderate amount of stool and gas demonstrated in the large bones. There are a few phleboliths in the pelvis. The bony structures appear intact. Tiny cystic components in the left femoral head/neck. DIVISION OF RADIOLOGY Provider, [facility] - 01/02/2023 * * *Final Report* * * DATE OF EXAM: Jan 01 2023 2:47PM WOX 5289 - XR ABDOMEN 1V SUPINE / PROCEDURE REASON: multiple diagnoses * * * * Physician Interpretation * * * * EXAM TITLE: XR ABDOMEN 1V SUPINE EXAM DATE/TIME: 01/01/2023 2:47 PM COMPARISON: None. CLINICAL INDICATION/HISTORY: Evaluate fecal load. TECHNIQUE: AP views of the abdomen are presented. FINDINGS: No abnormally dilated bowel loops identified. Moderate amount of stool and gas demonstrated in the large bones. There are a few phleboliths in the pelvis. The bony structures appear intact. Tiny cystic components in the left femoral head/neck. IMPRESSION IMPRESSION: Moderate stool burden. Unit Trust Manager: ABIGAIL Transcribe Date/Time: Jan 02 2023 1:39P Dictated by : YUE ROTH MD This examination was interpreted and the report reviewed and electronically signed by: YUE ROTH MD on Jan 02 2023 1:54PM EST [facility] Supine and Uprigh tOrdered By: Ccf Provider on 01-02-2023 [facility] Ab[facility]en Supine and Uprigh ton 01-01-2023 Radiology Study observation (narrative) [facility] UA DIP, URINE (POC)on 2021 BILIRUBIN UA (POCT) Negative Negative [facility] CLARITY UA (POCT) Clear [facility] COLOR UA (POCT) Yellow [facility] GLUCOSE UA (POCT) Negative Negative mg/dL [facility] HEMOGLOBIN/BLOOD UA (POCT) Negative Negative [facility] KETONE UA (POCT) Negative Negative mg/dL [facility] LEUKOCYTES UA (POCT) Negative Negative [facility] NITRITE UA (POCT) Negative [facility] PH UA (POCT) 6.0 4.5 - 8.0 [facility] Protein Ql (U) Negative Negative mg/dL [facility] SPECIFIC GRAVITY UA (POCT) 1.025 1.005 - 1.030 [facility] UROBILINOGEN UA (POCT) 0.2 E.U./dL Normal E.U./dL [facility] STREP A MOLECULAR (POC)on Procedural Control Valid [facility] Strep A (POCT) Negative Negative [facility] XR Thoracic spine AP and Lat eral and Swimmerson 07-12-2021 IMPRESSION: Thoracic spine degenerative changes as described above. Unit Trust Manager: ABIGAIL Transcribe Date/Time: Jul 12 2021 8:42A Dictated by : YUE ROTH MD This examination was interpreted and the report reviewed and electronically signed by: YUE ROTH MD on Jul 12 2021 8:44AM EST DIVISION OF RADIOLOGY * * *Final Report* * * DATE OF EXAM: Jul 12 2021 8:40AM WOX 5261 - XR THORACIC 3V AP/LAT/SWIMMERS / PROCEDURE REASON: multiple diagnoses * * * * Physician Interpretation * * * * EXAM TITLE: XR THORACIC 3V AP/LAT/SWIMMERS EXAM DATE/TIME: 07/12/2021 8:40 AM COMPARISON: None. CLINICAL INDICATION/HISTORY: Mid back pain. TECHNIQUE: AP, swimmer's and lateral views of the thoracic spine are presented FINDINGS: Left-sided curvature/levoscoliosi s noted in the lower thoracic spine. No fractures or subluxations are noted. The disc spaces are grossly preserved. Mild osteophyte formation seen in the lower thoracic spine. There is no paraspinal mass or bony destructive process. DIVISION OF RADIOLOGY Provider, Barbara Tse - 07/12/2021 * * *Final Report* * * DATE OF EXAM: Jul 12 2021 8:40AM WOX 5261 - XR THORACIC 3V AP/LAT/SWIMMERS / PROCEDURE REASON: multiple diagnoses * * * * Physician Interpretation * * * * EXAM TITLE: XR THORACIC 3V AP/LAT/SWIMMERS EXAM DATE/TIME: 07/12/2021 8:40 AM COMPARISON: None. CLINICAL INDICATION/HISTORY: Mid back pain. TECHNIQUE: AP, swimmer's and lateral views of the thoracic spine are presented FINDINGS: Left-sided curvature/levoscoliosi s noted in the lower thoracic spine. No fractures or subluxations are noted. The disc spaces are grossly preserved. Mild osteophyte formation seen in the lower thoracic spine. There is no paraspinal mass or bony destructive process. IMPRESSION IMPRESSION: Thoracic spine degenerative changes as described above. Unit Trust Manager: PSCB Transcribe Date/Time: Jul 12 2021 8:42A Dictated by : YUE ROTH MD This examination was interpreted and the report reviewed and electronically signed by: YUE ROTH MD on Jul 12 2021 8:44AM EST [facility] Radiology Study observation (narrative) [facility] XR Thoracic spine AP and Lat eral and SwimmersOrdered By: Ccf Provider on 07-12-2021 [facility] XR Knee - right 4 Viewson IMPRESSION: 1. Mild joint space narrowing in the medial compartment of the right knee suggesting minimal degenerative changes. 2. Small right knee joint suprapatellar effusion. 3. Left knee appears within normal limits. Unit Trust Manager: PSCB Transcribe Date/Time: Mar 11 2021 3:30P Dictated by : MACI JAQUEZ MD This examination was interpreted and the report reviewed and electronically signed by: MACI JAQUEZ MD on Mar 11 2021 3:33PM [facility] DIVISION OF RADIOLOGY * * *Final Report* * * DATE OF EXAM: Mar 11 2021 3:29PM WOX 5203 - XR KNEE 4V AP/PA BOTH+LAT/LUCIAN RT / PROCEDURE REASON: Acute pain of right knee * * * * Physician Interpretation * * * * EXAMINATION: RIGHT KNEE X-RAY SERIES EXAMINATION: BILATERAL KNEE STANDING X-RAY SERIES HISTORY: Acute pain of right knee COMPARISON: None available. TECHNIQUE: Right knee x-ray, lateral view ; bilateral knee standing AP, PA x-ray images, and bilateral patellar views. RESULT:Right knee: No fracture, dislocation or destructive changes. Slight joint space narrowing in the medial compartment of the knee. Lateral compartment and patellofemoral compartments appear preserved. Small suprapatellar knee joint effusion. Left knee: No evidence of fracture, dislocation or foreign body. Visualized joint spaces appear within normal limits. DIVISION OF RADIOLOGY [facility] * * *Final Report* * * DATE OF EXAM: Mar 11 2021 3:29PM WOX 5203 - XR KNEE 4V AP/PA BOTH+LAT/LUCIAN RT / PROCEDURE REASON: Acute pain of right knee * * * * Physician Interpretation * * * * EXAMINATION: RIGHT KNEE X-RAY SERIES EXAMINATION: BILATERAL KNEE STANDING X-RAY SERIES HISTORY: Acute pain of right knee COMPARISON: None available. TECHNIQUE: Right knee x-ray, lateral view ; bilateral knee standing AP, PA x-ray images, and bilateral patellar views. RESULT:Right knee: No fracture, dislocation or destructive changes. Slight joint space narrowing in the medial compartment of the knee. Lateral compartment and patellofemoral compartments appear preserved. Small suprapatellar knee joint effusion. Left knee: No evidence of fracture, dislocation or foreign body. Visualized joint spaces appear within normal limits. IMPRESSION IMPRESSION: 1. Mild joint space narrowing in the medial compartment of the right knee suggesting minimal degenerative changes. 2. Small right knee joint suprapatellar effusion. 3. Left knee appears within normal limits. Unit Trust Manager: PSCB Transcribe Date/Time: Mar 11 2021 3:30P Dictated by : MACI JAQUEZ MD This examination was interpreted and the report reviewed and electronically signed by: MACI JAQUEZ MD on Mar 11 2021 3:33PM EST [facility] Radiology Study observation (narrative) [facility] XR Knee - right 4 ViewsOrder ed By: Ccf Provider on 03-11-2021 [facility] LIVERon 10-17-2019 Albumin [Mass/Vol] 3.8 g/dL Normal 3.2-5.0 [facility] Comment on above: Performed By: #### L [id number] #### [facility] [address] [place], [place] [id number] Albumin/Globulin [Mass ratio] 1.1 {ratio} Normal 0.8-2.0 [facility] Comment on above: Performed By: #### L [id number] #### [facility] [place] [address] ALK PHOS 73 U/L Normal 45-117 [facility] Comment on above: Performed By: #### L [id number] #### [facility] [place] [address] ALT [Catalytic activity/Vol] 373 U/L High 13-61 [facility] Comment on above: Result Comment: RESU LTS MAY BE FALSELY DEPRESSED AFTER THE ADMINISTRATION OF SULFASALAZINE AND/OR SULFAPYRIDINE. Performed By: #### L 500.70056 #### [facility] [place] [address] BILI DIRECT 0.09 MG/DL Normal 0.00-0.20 [facility] Comment on above: Performed By: #### L 500.85672 #### [facility] [place] [address] BILI TOTAL 0.3 MG/DL Normal 0.2-1.0 [facility] Comment on above: Performed By: #### L 500.75981 #### [facility] [place] [address] Globulin (S) [Mass/Vol] 3.6 g/dL Normal 2.2-4.2 [facility] Comment on above: Performed By: #### L 500.87261 #### [facility] [address] [place] [address] Protein [Mass/Vol] 7.4 g/dL Normal 6.0-8.5 [facility] Comment on above: Performed By: #### L 500.59420 #### [facility] [address] [place] [address] SGOT (AST) 169 U/L High 8-34 [facility] Comment on above: Result Comment: RESU LTS MAY BE FALSELY DEPRESSED AFTER THE ADMINISTRATION OF SULFASALAZINE AND/OR SULFAPYRIDINE. Performed By: #### L 500.92609 #### [facility] [address] [place] [address] LIVERon 10-07-2019 Albumin [Mass/Vol] 3.8 g/dL Normal 3.2-5.0 [facility] Comment on above: Performed By: #### L 500.87957 #### [facility] [address] [place], [place] [id number] Albumin/Globulin [Mass ratio] 1.0 {ratio} Normal 0.8-2.0 [facility] Comment on above: Performed By: #### L 500.65445 #### [facility] [address] [place], [place] [address] ALK PHOS 89 U/L Normal 45-117 [facility] Comment on above: Performed By: #### L 500.46601 #### [facility] [address] [place], [place] [address] ALT [Catalytic activity/Vol] 809 U/L High 13-61 [facility] Comment on above: Result Comment: RESU LTS MAY BE FALSELY DEPRESSED AFTER THE ADMINISTRATION OF SULFASALAZINE AND/OR SULFAPYRIDINE. Performed By: #### L 500.85478 #### [facility] [address] [place] [address] BILI DIRECT 0.07 MG/DL Normal 0.00-0.20 [facility] Comment on above: Performed By: #### L 500.14023 #### [facility] [address] [place], [place] [address] BILI TOTAL 0.2 MG/DL Normal 0.2-1.0 [facility] Comment on above: Performed By: #### L 500.30620 #### [facility] [address] [place] [address] Globulin (S) [Mass/Vol] 3.6 g/dL Normal 2.2-4.2 [facility] Comment on above: Performed By: #### L 500.69701 #### [facility] [address] [place], [place] [address] Protein [Mass/Vol] 7.4 g/dL Normal 6.0-8.5 [facility] Comment on above: Performed By: #### L 500.37216 #### [facility] [address] [place] [address] SGOT (AST) 318 U/L High 8-34 [facility] Comment on above: Result Comment: RESU LTS MAY BE FALSELY DEPRESSED AFTER THE ADMINISTRATION OF SULFASALAZINE AND/OR SULFAPYRIDINE. Performed By: #### L 500.81140 #### [facility] [address] [place] [address] EMERGENCY REPORTon 9 EMERGENCY REPORT [facility] EMERGENCY ROOM REPORT NAME ACCOUNT SEX AGE ADMIT DISCHARGE PT MED. RECORD# NUMBER DATE DATE TYPE MARISA OLMOS [id number] F 29 07/17/19 07/17/19 3 Dominique [id number] ROOM: ER DATE OF : 1990 DICTATING PHYSICIAN: Fabian Jarvis HISTORY OF PRESENT ILLNESS: This is a 29-year-old female with a past medical history of seizures and anxiety who presents with concern for drug overdose. The patient was brought in by EMS after receiving CPR for approximately 15 minutes. They state she was found down in respiratory arrest. She was intubated and then received 8 mg of IV Narcan through the right interosseous shoulder line. The patient at this time has no complaints. She states that she was smoking vape and does not remember anything else. PAST MEDICAL HISTORY: Seizures. PAST SURGICAL HISTORY: None. 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 She denies any alcohol abuse. REVIEW OF SYSTEMS: Ten systems were reviewed and otherwise negative unless stated above. PHYSICAL EXAMINATION: The patient appears well and nontoxic. Vital signs are within normal limits other than some mild tachycardia. Head: Normocephalic without signs of trauma. Eyes: Extraocular motions are intact, PERRLA. Mouth: Buccal mucosa appears well hydrated. Neck: Trachea is midline. Supple. No tenderness to palpation of the cervical midline. Lungs: Clear to auscultation bilaterally without wheezing. Heart: S1 and S2 appreciated without murmurs. Abdomen: Soft and nontender. No hepatosplenomegaly. Musculoskeletal: Muscle strength is +5/5 in the upper and lower extremities. Neurologic: Alert and oriented x3. Cranial nerves II through XII are intact. Skin: Clear. Psychiatric: Mood and affect are normal. DIAGNOSTIC DATA: She has leukocytosis. Electrolytes are within normal limits. Alcohol is negative. Chest x-ray is normal. EMERGENCY DEPARTMENT COURSE AND TREATMENT: The patient was given one liter of normal saline. The patient appears well and nontoxic. IO was removed. The patient was hydrated. No further rebound. I did wish to admit this patient given her extensive CPR and respiratory arrest. The patient decided that she is going to leave against medical advice. The police will take her into custody. Page 1 of 2 MARISA OLMOS Emergency Room Report DIAGNOSES: 1. Drug overdose. 2. Respiratory arrest. 3. The patient left against medical advice. PLAN/DISPOSITION: She left against medical advice. Dictated By: Fabian Jarvis DO 07/17/19 21:38 JOB #: [id number] Transcribed By: julia 07/18/19 10:44 Electronically signed by: E-SIGN: Fabian Jarvis D.O. 08/12/19 08:00 Page 2 of 2 MARISA OLMOS Emergency Room Report Normal [facility] DRUG SCREEN URINE MEDICon Amphetamines Ql (U) Positive [facility] Comment on above: Performed By: #### 2 50766 #### [facility],[address] [place] [address] B-DIAZEPINES Negative [facility] Comment on above: Performed By: #### 2 00337 #### [facility],[address] [place] [address] BARBITURATES Negative [facility] Comment on above: Performed By: #### 2 32680 #### [facility],[address] [place] [address] Cocaine Ql (U) Negative [facility] Comment on above: Performed By: #### 2 28369 #### [facility],[address] [place], [place] [address] DRUG SCREEN URINE MEDIC [facility] Comment on above: Result Comment: DRUG SCREEN - URINE Performed By: #### 2 82671 #### [facility],[address] [place] [address] Methadone Ql (U) Negative [facility] Comment on above: Performed By: #### 2 30068 #### [facility],[address] [place] [address] Opiates Ql (U) Negative [facility] Comment on above: Performed By: #### 2 15534 #### [facility],[address] [place] [address] PCP Negative [facility] Comment on above: Performed By: #### 2 55668 #### [facility],[address] [place], [place] [address] TCA Positive Normal [facility] Comment on above: Performed By: #### 2 64074 #### [facility],[address] [place], [place] [address] THC Positive Normal [facility] Comment on above: Result Comment: NEETU ENTS RECEIVING PROTON PUMP INHIBITORS MAY DEMONSTRATE FALSE POSITIVE THC/CANNABINOID RESULTS. AN ALTERNATIVE CONFIRMATORY METHOD SHOULD BE CONSIDERED TO VERIFY POSITIVE RESULTS. Performed By: #### 2 62112 #### [facility],[address] [place] [address] URINEon 07-18-2019 Beta HCG ( test) Ql (U) Negative Normal NEGATIVE [facility] Comment on above: Performed By: #### 2 70426 #### [facility],[address] [place] [address] EXTERNAL QC DONE? YES Normal [facility] Comment on above: Performed By: #### 2 13079 #### [facility],[address] [place] [address] INTERNAL QC PASS Normal [facility] Comment on above: Performed By: #### 2 32231 #### [facility],[address] [place] [address] URINALYSISon 07-18-2019 Amorphous NONE Normal [facility] Comment on above: Performed By: #### 2 53769 #### [facility],[address] [place], [place] [address] Bacteria LM.HPF (Urine sed) [#/Area] 1+ Normal [facility] Comment on above: Performed By: #### 2 88216 #### [facility],[address] [place] [address] Bilirubin [Mass/Vol] Negative Normal NORMAL: NEGATIVE [facility] Comment on above: Performed By: #### 2 05711 #### [facility],[address] [place] [address] Blood Negative Normal NORMAL: NEGATIVE [facility] Comment on above: Performed By: #### 2 36451 #### [facility],[address] [place] [address]3877 Casts LM.LPF (Urine sed) [#/Area] NONE Normal [facility] Comment on above: Performed By: #### 2 29677 #### [facility],[address] [place] [address] 78773 Clarity (U) clear Normal NORMAL: CLEAR [facility] Comment on above: Performed By: #### 2 39732 #### [facility],[address] [place] [address] 71764 Color (U) marisa Normal NORMAL: YELLOW [facility] Comment on above: Performed By: #### 2 36449 #### [facility],[address] [place] [address] 07468 Crystals LM Nom (Urine sed) NONE Normal [facility] Comment on above: Performed By: #### 2 00880 #### [facility],[address] [place] [address] 66150 Epi Cells MANY Normal [facility] Comment on above: Performed By: #### 2 92488 #### [facility],[address] [place] [address] 61908 Glucose [Mass/Vol] NORM Normal NORMAL: NORMAL [facility] Comment on above: Performed By: #### 2 58760 #### [facility],[address] [place] [address] 99941 Ketone Negative Normal NORMAL: NEGATIVE [facility] Comment on above: Performed By: #### 2 32569 #### [facility],[address] [place] [address] 22787 Microscopic SEE Normal [facility] Comment on above: Result Comment: MICR OSCOPIC Performed By: #### 2 18393 #### [facility],[address] [place] [address] 77501 Mucous 1+ Normal [facility] Comment on above: Performed By: #### 2 90916 #### [facility],[address] [place] [address] 70133 Nitrite Ql (U) Negative Normal NORMAL: NEGATIVE [facility] Comment on above: Performed By: #### 2 62831 #### [facility],[address] [place] [address] 60714 pH (Bld) 5 Normal NORMAL: 5.0-8.[address] [facility] Comment on above: Performed By: #### 2 06253 #### [facility],[address] [place] [address] Protein (U) [Mass/Vol] 30 mg/dL Abnormal NORMAL: NEGATIVE [facility] Comment on above: Performed By: #### 2 55653 #### [facility],[address] [place] [address] 98565 Rbc RARE Normal 0-3/hpf [facility] Comment on above: Performed By: #### 2 90613 #### [facility],[address] [place], [place] [address] Sp [place] 1.020 Normal NORMAL: 1.010-1.[address] [facility] Comment on above: Performed By: #### 2 31075 #### [facility],[address] [place], [place] [address] Specimen type Nom (Spec) Void Normal [facility] Comment on above: Performed By: #### 2 66498 #### [facility],[address] [place] [address] 59522 Urobilinog NORM Normal NORMAL: NORMAL [facility] Comment on above: Performed By: #### 2 29225 #### [facility],[address] [place] [address] 43328 Wbc 1-5 Normal 0-5/hpf [facility] Comment on above: Performed By: #### 2 72588 #### [facility],[address] [place] [address] 24410 WBC (Bld) [#/Vol] 25 Abnormal NORMAL: NEGATIVE [facility] Comment on above: Performed By: #### 2 67082 #### [facility],[address] [place], [place] [address] Yeast LM Ql (Urine sed) NONE Normal [facility] Comment on above: Performed By: #### 2 40889 #### [facility],[address] [place] [address] ALCOHOL-BLOOD MEDICALon 06-29 Ethanol [Mass/Vol] mg/dL Normal 0 - 50 [facility] Comment on above: Performed By: #### 2 06655 #### [facility],[address] [place] [address] BMP with eGFRon 07-17-2019 Age - Reported 29 years Normal [facility] Comment on above: Performed By: #### 2 15309 #### [facility],[address] [place] [address] Anion gap [Moles/Vol] 13 mmol/L Normal 10 - 20 [facility] Comment on above: Performed By: #### 2 04938 #### [facility],[address] [place] [address] Calcium [Mass/Vol] 8.5 mg/dL Low 8.6 - 10.2 [facility] Comment on above: Performed By: #### 2 44256 #### [facility],[address] [place], [place] [address] Chloride [Moles/Vol] 106 mmol/L Normal 98 - [address] [facility] Comment on above: Performed By: #### 2 37726 #### [facility],[address] [place], [place] [address] CO2 [Moles/Vol] 24.3 mmol/L Normal 21.0 - 31.0 [facility] Comment on above: Performed By: #### 2 19691 #### [facility],[address] [place] [address] Creatinine [Mass/Vol] 0.9 mg/dL Normal 0.6 - 1.2 [facility] Comment on above: Performed By: #### 2 30237 #### [facility],[address] [place] [address] 35026 GFR/1.73 sq M predicted among non-blacks MDRD (S/P/Bld) [Vol rate/Area] mL/min/{1.73_m2} Normal 60 - [address] [facility] Comment on above: Result Comment: ACCO RDING TO THE NATIONAL KIDNEY DISEASE EDUCATION PROGRAM(NKDE), A NORMAL eGFR IS A VALUE GREATER THAN OR EQUAL TO 60 ML/MIN/1.73 SQ METERS. CHRONIC KIDNEY DISEASE: <60mL/MIN/1.73 SQ METERS KIDNEY FAILURE: <15mL/MIN/1.73 SQ METERS THIS TEST SHOULD ONLY BE USED FOR PATIENTS 18 YEARS OF AGE AND OLDER. Performed By: #### 2 53743 #### [facility],[address] [place] [address] 25288 GFR/1.73 sq M predicted among non-blacks MDRD (S/P/Bld) [Vol rate/Area] Normal [facility] Comment on above: Result Comment: BASI C METABOLIC PANEL Performed By: #### 2 96932 #### [facility],[address] [place] [address] 25448 Glucose [Mass/Vol] 102 mg/dL Normal 74 - 106 [facility] Comment on above: Performed By: #### 2 81017 #### [facility],[address] [place] [address] 15177 Potassium [Moles/Vol] 3.6 mmol/L Normal 3.5 - 5.1 [facility] Comment on above: Performed By: #### 2 35595 #### [facility],[address] [place] [address] 32423 Sodium [Moles/Vol] 140 mmol/L Normal 136 - 145 [facility] Comment on above: Performed By: #### 2 16724 #### [facility] [place] [address] 99577 Urea nitrogen [Mass/Vol] 13 mg/dL Normal 6 - [address] [facility] Comment on above: Performed By: #### 2 14115 #### [facility],[address] [place] [address] 05998 CBC + DIFFon 07-17-2019 Basophils (Bld) [#/Vol] 0.10 x10EE3/UL Normal 0.00 - 0.[address] [facility] Comment on above: Performed By: #### 2 28516 #### [facility],[address] [place] [address] 50834 Basophils/100 WBC (Bld) 0.4 % Normal 0.0 - 2.[address] [facility] Comment on above: Performed By: #### 2 30615 #### [facility],[address] [place] [address] CBC + DIFF Normal [facility] Comment on above: Result Comment: CBC- COMPLETE BLOOD COUNT Performed By: #### 2 40238 #### [facility],[address] [place] [address] 75372 Eosinophils (Bld) [#/Vol] 0.20 x10EE3/UL Normal 0.00 - 0.[address] [facility] Comment on above: Performed By: #### 2 62423 #### [facility],[address] [place] [address] 21912 Eosinophils/100 WBC (Bld) 1.3 % Normal 0.0 - 7.[address] [facility] Comment on above: Performed By: #### 2 62522 #### [facility],[address] [place] [address] 57211 Erythrocyte distribution width (RBC) [Ratio] 14.7 % Normal 12.0 - 15.[address] [facility] Comment on above: Performed By: #### 2 54176 #### [facility],[address] [place] [address] 70918 Hematocrit (Bld) [Volume fraction] 36.2 % Normal 34.0 - 46.[address] [facility] Comment on above: Performed By: #### 2 32461 #### [facility],[address] [place] [address] Hemoglobin (Bld) [Mass/Vol] 12.0 g/dL Normal 12.0 - 16.[address] [facility] Comment on above: Performed By: #### 2 90110 #### [facility],[address] [place] [address] Lymphocytes (Bld) [#/Vol] 2.70 x10EE3/UL Normal 0.80 - 2.[address] [facility] Comment on above: Performed By: #### 2 47730 #### [facility],[address] [place] [address] Lymphocytes/100 WBC (Bld) 15.7 % Low 20.0 - 45.[address] [facility] Comment on above: Performed By: #### 2 45414 #### [facility],[address] [place] [address] MANUAL DIFF N/A Normal [facility] Comment on above: Performed By: #### 2 33158 #### [facility],[address] [place], [place] [address] MCH (RBC) [Entitic mass] 30 pg Normal 27 - [address] [facility] Comment on above: Performed By: #### 2 40070 #### [facility],[address] [place], [place] [address] MCHC (RBC) [Mass/Vol] 33 X10 3 Normal 32 - 36 [facility] Comment on above: Performed By: #### 2 32398 #### [facility],[address] [place], [place] [address] MCV (RBC) [Entitic vol] 90 fL Normal 80 - [address] [facility] Comment on above: Performed By: #### 2 58015 #### [facility],[address],[place] [address] Monocytes (Bld) [#/Vol] 1.60 x10EE3/UL High 0.20 - 1.[address] [facility] Comment on above: Performed By: #### 2 08950 #### [facility],[address] [place] [address] 49334 MONOS % 9.2 % Normal 0.0 - 10.[address] [facility] Comment on above: Performed By: #### 2 46397 #### [facility],[address] [place] [address] 01426 Morphology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 Electronically signed by: E-Sign: ALISON KOHLER MD 05/22/19 14:16 Page 2 of 2 MARISA OLMOS Emergency Room Report Normal [facility] GC/CHLAM AMPLIFICATION SWAB [CCL]on 05-21-2019 Chlamydia Amplif Negative Normal [facility] Comment on above: Result Comment: [facility] [address] [place] [address] Flora Redman M.D. [id number] Performed By: #### 2 38740 #### [facility],[address] [place] [address] GC Amplification Negative Normal [facility] Comment on above: Performed By: #### 2 01101 #### [facility],[address] [place] [address] GC/Chlam Amp Source VAGINAL Normal [facility] Comment on above: Performed By: #### 2 64708 #### [facility],[address] [place] [address] CBC + DIFFon 05-19-2019 Basophils (Bld) [#/Vol] 0.10 x10EE3/UL Normal 0.00 - 0.[address] [facility] Comment on above: Performed By: #### 2 74347 #### [place] [id number] Basophils/100 WBC (Bld) 0.3 % Normal 0.0 - 2.[address] [facility] Comment on above: Performed By: #### 2 03918 #### [facility],[address] [place] [address] CBC + DIFF Normal [facility] Comment on above: Result Comment: CBC- COMPLETE BLOOD COUNT Performed By: #### 2 16034 #### [facility],[address] [place], [place] [id number] Eosinophils (Bld) [#/Vol] 0.10 x10EE3/UL Normal 0.00 - 0.[address] [facility] Comment on above: Performed By: #### 2 46722 #### [facility],[address] [place] [address] Eosinophils/100 WBC (Bld) 0.9 % Normal 0.0 - 7.[address] [facility] Comment on above: Performed By: #### 2 06782 #### [facility],[address] [place] [address] Erythrocyte distribution width (RBC) [Ratio] 13.8 % Normal 12.0 - 15.[address] [facility] Comment on above: Performed By: #### 2 05009 #### [facility],[address] [place], [place] [id number] Hematocrit (Bld) [Volume fraction] 39.5 % Normal 34.0 - 46.[address] [facility] Comment on above: Performed By: #### 2 40257 #### [facility],[address] [place] [address] Hemoglobin (Bld) [Mass/Vol] 13.6 g/dL Normal 12.0 - 16.[address] [facility] Comment on above: Performed By: #### 2 88534 #### [facility],[address] [place], [place] [address] Lymphocytes (Bld) [#/Vol] 2.30 x10EE3/UL Normal 0.80 - 2.[address] [facility] Comment on above: Performed By: #### 2 49174 #### [facility],[address] [place], [place] [address] Lymphocytes/100 WBC (Bld) 15.6 % Low 20.0 - 45.[address] [facility] Comment on above: Performed By: #### 2 78575 #### [facility],[address] [place] [address] MANUAL DIFF N/A Normal [facility] Comment on above: Performed By: #### 2 60794 #### [facility],[address] [place] [address] 53272 MCH (RBC) [Entitic mass] 30 pg Normal 27 - [address] [facility] Comment on above: Performed By: #### 2 84171 #### [facility],[address] [place] [address] 18185 MCHC (RBC) [Mass/Vol] 34 X10 3 Normal 32 - 36 [facility] Comment on above: Performed By: #### 2 14547 #### [facility],[address] [place] [address] 62971 MCV (RBC) [Entitic vol] 86 fL Normal 80 - [address] [facility] Comment on above: Performed By: #### 2 26241 #### [facility],[address] [place] [address]16 Monocytes (Bld) [#/Vol] 1.30 x10EE3/UL High 0.20 - 1.[address] [facility] Comment on above: Performed By: #### 2 60140 #### [facility],[address] [place] [address] 61359 MONOS % 9.0 % Normal 0.0 - 10.[address] [facility] Comment on above: Performed By: #### 2 26182 #### [facility],[address] [place] [address] 11212 Morphology Jignesh (Bld) [Interp] N/A Normal [facility] Comment on above: Performed By: #### 2 78808 #### [facility],[address] [place] [address] 47462 Neutrophils (Bld) [#/Vol] 11.00 x10EE3/UL High 1.50 - 7.[address] [facility] Comment on above: Performed By: #### 2 22113 #### [facility],[address] [place] [address] 99836 Neutrophils/100 WBC (Bld) 74.2 % Normal 46.0 - 76.[address] [facility] Comment on above: Performed By: #### 2 23597 #### [facility],[address] [place] [address] 81391 Platelet mean volume (Bld) [Entitic vol] 7.6 fL Normal 6.6 - 10.5 [facility] Comment on above: Result Comment: AUTO MATED DIFFERENTIAL Performed By: #### 2 87093 #### [facility],[address] [place] [address] 97172 Platelets (Bld) [#/Vol] 255 x10EE3/UL Normal 150 - [address] [facility] Comment on above: Performed By: #### 2 24911 #### [facility],[address] [place] [address] 15555 RBC (Bld) [#/Vol] 4.60 x 10EE6/UL Normal 4.10 - 5.30 [facility] Comment on above: Performed By: #### 2 34991 #### [facility],[address] [place] [address] 64279 WBC (Bld) [#/Vol] 14.9 x 10EE3/UL High 4.5 - 10.8 [facility] Comment on above: Performed By: #### 2 35023 #### [facility],[address] [place] [address] 54761 CMP with eGFRon 05-19-2019 Age - Reported 29 years Normal [facility] Comment on above: Performed By: #### 2 98612 #### [facility],[address] [place] [address] 94278 Albumin [Mass/Vol] 3.8 g/dL Normal 3.4 - 4.8 [facility] Comment on above: Performed By: #### 2 60117 #### [facility],[address] [place] [address] 12340 Albumin/Globulin [Mass ratio] 1.1 {ratio} Normal 0.9 - 1.[address] [facility] Comment on above: Performed By: #### 2 46817 #### [facility],[address] [place] [address] 24677 ALK PHOS 60 U/L Normal 38 - [address] [facility] Comment on above: Performed By: #### 2 68739 #### [facility],[address] [place] [address] 55797 ALT/SGPT 27 U/L Normal 8 - [address] [facility] Comment on above: Performed By: #### 2 68824 #### [facility],[address] [place] [address] 02120 Anion gap [Moles/Vol] 13 mmol/L Normal 10 - 20 [facility] Comment on above: Performed By: #### 2 90101 #### [facility],[address] [place] [address] 94199 AST/SGOT 40 U/L High 13 - [address] [facility] Comment on above: Performed By: #### 2 60154 #### [facility],[address] [place] [address] 84258 B/C RATIO 20 ratio Normal 0 - [address] [facility] Comment on above: Performed By: #### 2 07319 #### [facility],[address] [place] [address] 92729 Bilirubin [Mass/Vol] 0.5 mg/dL Normal 0.0 - 1.[address] [facility] Comment on above: Performed By: #### 2 22159 #### [facility],[address] [place] [address] 46802 Calcium [Mass/Vol] 9.1 mg/dL Normal 8.6 - 10.2 [facility] Comment on above: Performed By: #### 2 62664 #### [facility],[address] [place] [address] 28356 Chloride [Moles/Vol] 101 mmol/L Normal 98 - [address] [facility] Comment on above: Performed By: #### 2 22886 #### [facility],[address] [place] [address] 60148 CO2 [Moles/Vol] 24.2 mmol/L Normal 21.0 - 31.0 [facility] Comment on above: Performed By: #### 2 94800 #### [facility],[address] [place] [address] 32688 Creatinine [Mass/Vol] 0.6 mg/dL Normal 0.6 - 1.2 [facility] Comment on above: Performed By: #### 2 10216 #### [facility],[address] [place] [address] 81196 GFR/1.73 sq M predicted among non-blacks MDRD (S/P/Bld) [Vol rate/Area] mL/min/{1.73_m2} Normal 60 - [address] [facility] Comment on above: Performed By: #### 2 49882 #### [facility],[address] [place] [address] 78571 Result Comment: ACCO RDING TO THE NATIONAL KIDNEY DISEASE EDUCATION PROGRAM(NKDE), A NORMAL eGFR IS A VALUE GREATER THAN OR EQUAL TO 60 ML/MIN/1.73 SQ METERS. CHRONIC KIDNEY DISEASE: <60mL/MIN/1.73 SQ METERS KIDNEY FAILURE: <15mL/MIN/1.73 SQ METERS THIS TEST SHOULD ONLY BE USED FOR PATIENTS 18 YEARS OF AGE AND OLDER. GFR/1.73 sq M predicted among non-blacks MDRD (S/P/Bld) [Vol rate/Area] Normal [facility] Comment on above: Result Comment: COMP REHENSIVE METABOLIC PANEL Performed By: #### 2 56309 #### [facility],[address] [place] [address] 57283 Globulin (S) [Mass/Vol] 3.6 g/dL Normal 1.5 - 3.[address] [facility] Comment on above: Performed By: #### 2 18346 #### [facility],[address] [place] [address] 87498 Glucose [Mass/Vol] 101 mg/dL Normal 74 - 106 [facility] Comment on above: Performed By: #### 2 06697 #### [facility],[address] [place] [address] 45166 Potassium [Moles/Vol] 3.8 mmol/L Normal 3.5 - 5.1 [facility] Comment on above: Performed By: #### 2 20748 #### [facility],[address] [place] [address] 09036 Protein [Mass/Vol] 7.4 g/dL Normal 6.4 - 8.3 [facility] Comment on above: Performed By: #### 2 14813 #### [facility],[address] [place] [address] 67300 Sodium [Moles/Vol] 134 mmol/L Low 136 - 145 [facility] Comment on above: Performed By: #### 2 13138 #### [facility],[address] [place] [address] 78784 Urea nitrogen [Mass/Vol] 12 mg/dL Normal 6 - [address] [facility] Comment on above: Performed By: #### 2 23025 #### [facility],[address] [place] [address] KUB (KIDNEY STONE PROTOCO L)on 05-19-2019 CT KUB (KIDNEY STONE PROTOCOL) [place] [address] Patient: MARISA OLMOS Phone#: : 1990 Age: 29 Gender: F Pt. Type: ER Account: [id number] Location: 052 Ordering: DR. ALISON KOHLER Exam Date: 05/19/2019/16:01 Family Phys: ERMIAS LOCKWOOD Charge Code: [id number] Physician: Yadkin Order #: [id number] DLP Dose#: 6.0 mGy PROCEDURE: CT ABDOMEN AND PELVIS WITHOUT CONTRAST COMPARISON: None. INDICATIONS: Renal Colic TECHNIQUE: After obtaining the patient's consent, CT images of the abdomen and pelvis were created without non-ionic intravenous contrast material. All CT scans at this facility use dose modulation, iterative reconstruction, and/or weight based dosing when appropriate to reduce radiation dose to as low as reasonably achievable. IV CONTRAST: No IV contrast used,0ml TOTAL DOSE: 6.0 CTDIvol(mGy) FINDINGS: KIDNEYS: A nonobstructed 2 mm calcification is present in the lower pole calyx of the right kidney. No other renal or ureteral calculi are identified. There is no evidence of hydronephrosis. ADRENALS: Normal. No mass or enlargement. URINARY BLADDER: Normal. No visible focal wall thickening, lesion, or calculus. LIVER: Ja's hepatic lobe is present. No enlargement, atrophy, abnormal density, or significant focal lesion. BILIARY: The gallbladder is absent. There is no evidence of biliary dilatation. PANCREAS: Normal. No lesion, fluid collection, ductal dilatation, or atrophy. SPLEEN: Normal. No enlargement or focal lesion. AORTA/VASCULAR: Normal. No aneurysm. RETROPERITONEUM: Normal. No mass or adenopathy. BOWEL/MESENTERY: Normal. No visible mass, obstruction, or bowel wall thickening. ABDOMINAL WALL: Normal. No mass or hernia. PELVIC NODES: Normal. No adenopathy. Continued Report - Page 2 of 2 Patient: MARISA OLMOS Phone#: : 1990 Age: 29 Gender: F Pt. Type: ER Account: [id number] Location: [facility] Ordering: DR. ALISON KOHLER Exam Date: 05/19/2019/16:01 Family Phys: ERMIAS LOCKWOOD Charge Code: [id number] Physician: Yadkin Order #: [id number] DLP Dose#: 6.0 mGy PELVIC ORGANS: Normal. No visible mass. Pelvic organs appropriate for patient age. BONES: Normal. No bony lesion or fracture. LUNG BASES: Normal. No visible pulmonary or pleural disease. OTHER: Negative. CONCLUSION: 1. Nonobstructing right renal calculus is present. 2. There is no evidence of ureteral calculi or hydronephrosis. Dictated by: Claudia Hill MD on 05/19/2019 at 16:17 Approved by: Claudia Hill MD on 05/19/2019 at 16:[address] [facility] LIPASEon 05-19-2019 Lipase [Catalytic activity/Vol] U/L Low 18.0 - 51.[address] [facility] Comment on above: Performed By: #### 2 14479 #### [facility],[address] [place] [address] URINEon 05-19-2019 Beta HCG ( test) Ql (U) Negative Normal NEGATIVE [facility] Comment on above: Performed By: #### 2 38612 #### [facility],[address] [place] [address] EXTERNAL QC DONE? YES Normal [facility] Comment on above: Performed By: #### 2 46814 #### [facility],[address] [place] [address] INTERNAL QC PASS Normal [facility] Comment on above: Performed By: #### 2 07640 #### [facility],[address] [place] [address] URINALYSISon 05-19-2019 Amorphous NONE Normal [facility] Comment on above: Performed By: #### 2 58397 #### [facility],[address] [place] [address] Bacteria LM.HPF (Urine sed) [#/Area] TRACE Normal [facility] Comment on above: Performed By: #### 2 94244 #### [facility],[address] [place] [address] Bilirubin [Mass/Vol] 1 Abnormal NORMAL: NEGATIVE [facility] Comment on above: Performed By: #### 2 88192 #### [facility],[address] [place] [address] Blood Negative Normal NORMAL: NEGATIVE [facility] Comment on above: Performed By: #### 2 19226 #### [facility],[address] [place], [place] [id number] Casts LM.LPF (Urine sed) [#/Area] NONE Normal [facility] Comment on above: Performed By: #### 2 53883 #### [facility],[address] [place], [place] [address] Clarity (U) clear Normal NORMAL: CLEAR [facility] Comment on above: Performed By: #### 2 37858 #### [facility],[address] [place], [place] [address] Color (U) marisa Normal NORMAL: YELLOW [facility] Comment on above: Performed By: #### 2 41035 #### [facility],[address] [place] [address] 08068 Crystals LM Nom (Urine sed) NONE Normal [facility] Comment on above: Performed By: #### 2 94675 #### [facility],[address] [place] [address] 32598 Epi Cells FEW Normal [facility] Comment on above: Performed By: #### 2 13031 #### [facility],[address] [place] [address] 22480 Glucose [Mass/Vol] NORM Normal NORMAL: NORMAL [facility] Comment on above: Performed By: #### 2 64630 #### [facility],[address] [place] [address] 13749 Ketone 5 Abnormal NORMAL: NEGATIVE [facility] Comment on above: Performed By: #### 2 36260 #### [facility],[address] [place] [address] Microscopic SEE BELOW Normal [facility] Comment on above: Result Comment: MICR OSCOPIC Performed By: #### 2 27198 #### [facility],[address] [place], [place] [address] Mucous TRACE Normal [facility] Comment on above: Performed By: #### 2 52544 #### [facility],[address] [place] [address] 85267 Nitrite Ql (U) Negative Normal NORMAL: NEGATIVE [facility] Comment on above: Performed By: #### 2 45436 #### [facility],[address] [place] [address] 89442 pH (Bld) 5 Normal NORMAL: 5.0-8.[address] [facility] Comment on above: Performed By: #### 2 47903 #### [facility],[address] [place] [address] 20916 Protein (U) [Mass/Vol] 30 mg/dL Abnormal NORMAL: NEGATIVE [facility] Comment on above: Performed By: #### 2 93907 #### [facility],[address] [place] [address] Rbc NONE Normal 0-3/hpf [facility] Comment on above: Performed By: #### 2 43410 #### [facility],[address] [place] [address] Sp [place] 1.020 Normal NORMAL: 1.010-1.[address] [facility] Comment on above: Performed By: #### 2 39952 #### [facility],[address] [place] [address] Specimen type Nom (Spec) UNSPECIFIED Normal [facility] Comment on above: Performed By: #### 2 31348 #### [facility],[address] [place] [address] Urobilinog 1 Abnormal NORMAL: NORMAL [facility] Comment on above: Performed By: #### 2 29562 #### [facility],[address] [place] [address] Wbc 1-5 Normal 0-5/hpf [facility] Comment on above: Performed By: #### 2 34977 #### [facility],[address] [place] [address] WBC (Bld) [#/Vol] 25 Abnormal NORMAL: NEGATIVE [facility] Comment on above: Performed By: #### 2 71668 #### [facility],[address] [place] [address] Yeast LM Ql (Urine sed) NONE Normal [facility] Comment on above: Performed By: #### 2 04430 #### [facility],[address] [place] [address] WET PREP TRICHOMONASon 05-19 WET PREP TRICHOMONAS WET PREP TRICHOMONA S WET PREP TRICHOMONAS WET PREP: No Trich. seen Normal [facility] [facility] Comment on above: Performed By: #### 2 [id number] #### [facility],[address] [place] [address] EMERGENCY REPORTon 9 EMERGENCY REPORT [facility] EMERGENCY ROOM REPORT NAME ACCOUNT SEX AGE ADMIT DISCHARGE PT MED. RECORD# NUMBER DATE DATE TYPE MARISA OLMOS [id number] F 29 04/29/19 04/29/19 3 L [id number] ROOM: ER DATE OF : 1990 DICTATING PHYSICIAN: Vani Horowitz HISTORY OF PRESENT ILLNESS: The patient came in. The patient has abscesses on her left forearm. She is an IV drug user, and uses heroin, and states she has had this abscess for a week and it is getting worse. She complains of pain, a 6 out of 10. It is worse with pressure. It is better with nothing. She could not tolerate it and presents to the emergency department. She denies fever, chills, nausea or vomiting. PAST MEDICAL HISTORY: Positive for anxiety, depression, and substance abuse. She has been in the hospital in the past for this. She has restless leg syndrome. She has sleep apnea. SOCIAL HISTORY: She does smoke. She denies alcohol use. REVIEW OF SYSTEMS: Ten systems reviewed and negative except as mentioned above. PHYSICAL EXAMINATION: The patient was afebrile. Blood pressure 123/84, pulse 87, respirations 16, and pulse ox 96% on room air. Head is normocephalic and atraumatic. Eyes: Pupils are equal, round, and reactive to light. Extraocular muscles intact. Nares are patent. Throat has adequate moisture. Uvula is midline. Neck is supple without petechiae or rash. Heart without murmur. S1 equals S2. No S3 or S4 appreciated. Lungs are clear to auscultation bilaterally. No rales, rhonchi, or retractions. Abdomen is soft, nontender, and nondistended. Skin is warm and dry. EMERGENCY DEPARTMENT COURSE AND TREATMENT: She has 2 abscesses on her left forearm. They are fluctuant, red. I did offer to I&D them, which she accepted. She was anesthetized with lidocaine. A cross incision was made. Copious amounts of purulent material were obtained in both the areas. She tolerated the procedure well. DIAGNOSIS: Abscesses to the left arm. PLAN/DISPOSITION: She will be placed on Bactrim and Keflex, and she will be discharged. She will also be given a paper for substance abuse treatment. Dictated By: Vani Horowitz DO 04/29/19 15:18 JOB #: [id number] Page 1 of 2 MARISA OLMOS Emergency Room Report Transcribed By: am 04/30/19 08:57 Electronically signed by: GIOVANNY Horowitz D.O. 05/02/19 08:24 Page 2 of 2 MARISA OLMOS Emergency Room Report Normal [facility] AMYLASE,SERUMon 10-10-2018 Amylase enzyme act/vol 31 U/L Normal 25-115 [facility] Comment on above: Performed By: #### C BCD, DAILY, BHCG, CMP, ETOH, LIP, PT #### [facility] [address] [place] [address] 94774 BETA-HCG, QUANTon 10-10-2018 BETA-HCG, QUANT < 1.0 Low 1-3 [facility] Comment on above: Result Comment: INTERPRETATION FOR : 0-3 mIU/ml=NEGATIVE 4-24 mIU/mL=BORDERLINE >25 mIU/mL=POSITIVE Performed By: #### C BCD, DAILY, BHCG, CMP, ETOH, LIP, PT #### [facility] [address] [place] [address] 43672 CBC with DIFFERENTIALon 09-28 Basophils #/vol (Bld) 0.1 10*3/uL Normal 0.0-0.1 [facility] Comment on above: Performed By: #### C BCD, DAILY, BHCG, CMP, ETOH, LIP, PT #### [facility] [address] [place] [address] 65616 Basophils/100 WBC (Bld) 0.8 % Normal 0.0-1.0 [facility] Comment on above: Performed By: #### C BCD, DAILY, BHCG, CMP, ETOH, LIP, PT #### [facility] [address] [place] [address] 38041 Eosinophils #/vol (Bld) 0.2 10*3/uL Normal 0.0-0.4 [facility] Comment on above: Performed By: #### C BCD, DAILY, BHCG, CMP, ETOH, LIP, PT #### [facility] [address] [place] [address] Eosinophils/100 WBC (Bld) 1.7 % Normal 1.0-4.0 [facility] Comment on above: Performed By: #### C BCD, DAILY, BHCG, CMP, ETOH, LIP, PT #### [facility] [address] [place] [address] 39525 Hematocrit Volume Fraction (Bld) 42.5 % Normal 37.0-47.0 [facility] Comment on above: Performed By: #### C BCD, DAILY, BHCG, CMP, ETOH, LIP, PT #### [facility] [address] [place] [address] 83428 Hemoglobin mass conc (Bld) 13.9 g/dL Normal 12.0-16.0 [facility] Comment on above: Performed By: #### C BCD, DAILY, BHCG, CMP, ETOH, LIP, PT #### [facility] [address] [place] [address] 70038 IG # 0.0 10*3/uL Normal 0.0-0.1 [facility] Comment on above: Performed By: #### C BCD, DAILY, BHCG, CMP, ETOH, LIP, PT #### [facility] [address] [place] [address] 14982 IG % 0.3 % Normal 0.0-1.0 [facility] Comment on above: Performed By: #### C BCD, DAILY, BHCG, CMP, ETOH, LIP, PT #### [facility] [address] [place] [address] 01539 Lymphocytes #/vol (Bld) 3.1 10*3/uL Normal 1.3-4.4 [facility] Comment on above: Performed By: #### C BCD, DAILY, BHCG, CMP, ETOH, LIP, PT #### [facility] [address] [place] [address] 45252 Lymphocytes/100 WBC (Bld) 28.2 % Normal 27.0-41.0 [facility] Comment on above: Performed By: #### C BCD, DAILY, BHCG, CMP, ETOH, LIP, PT #### [facility] [address] [place] [address] MCH Entitic mass (RBC) 32.7 g/dl Low 33.0-37.0 [facility] Comment on above: Performed By: #### C BCD, DAILY, BHCG, CMP, ETOH, LIP, PT #### [facility] [address] [place] [address] 88205 MCV Entitic volume (RBC) 89.9 fL Normal 81.0-99.0 [facility] Comment on above: Performed By: #### C BCD, DAILY, BHCG, CMP, ETOH, LIP, PT #### [facility] [address] [place] [address] MEAN CORPUSCULAR HGB 29.4 pg Normal 27.0-31.0 [facility] Comment on above: Performed By: #### C BCD, DAILY, BHCG, CMP, ETOH, LIP, PT #### [facility] [address] [place] [address] 16947 Monocytes #/vol (Bld) 0.8 10*3/uL Normal 0.1-1.0 [facility] Comment on above: Performed By: #### C BCD, DAILY, BHCG, CMP, ETOH, LIP, PT #### [facility] [address] [place] [address] 80288 Monocytes/100 WBC (Bld) 7.7 % Normal 3.0-9.0 [facility] Comment on above: Performed By: #### C BCD, DAILY, BHCG, CMP, ETOH, LIP, PT #### [facility] [address] [place] [address] 57035 Neutrophils #/vol (Bld) 6.7 10*3/uL Normal 2.3-7.9 [facility] Comment on above: Performed By: #### C BCD, DAILY, BHCG, CMP, ETOH, LIP, PT #### [facility] [address] [place] [address] 01264 Neutrophils/100 WBC (Bld) 61.3 % Normal 47.0-73.0 [facility] Comment on above: Performed By: #### C BCD, DAILY, BHCG, CMP, ETOH, LIP, PT #### [facility] [address] [place] [address] 73850 NUCLEATED RED BLOOD CELL 0.0 10*3/uL Normal 0.0-0.0 [facility] Comment on above: Performed By: #### C BCD, DAILY, BHCG, CMP, ETOH, LIP, PT #### [facility] [address] [place] [address] 84633 NUCLEATED RED BLOOD CELL 0.0 % Normal 0.0-0.0 [facility] Comment on above: Performed By: #### C BCD, DAILY, BHCG, CMP, ETOH, LIP, PT #### [facility] [address] [place] [address] 24275 PLATELET COUNT AUTOMATED 269 10*3/uL Normal 130-400 [facility] Comment on above: Performed By: #### C BCD, DAILY, BHCG, CMP, ETOH, LIP, PT #### [facility] [address] [place] [address] 85447 Platelet mean volume Entitic volume (Bld) 10.2 fL Normal 9.6-12.3 [facility] Comment on above: Performed By: #### C BCD, DAILY, BHCG, CMP, ETOH, LIP, PT #### [facility] [address] [place] [address] 86176 RBC #/vol (Bld) 4.73 10*6/uL Normal 4.10-5.10 [facility] Comment on above: Performed By: #### C BCD, DAILY, BHCG, CMP, ETOH, LIP, PT #### [facility] [address] [place] [address] 69178 RED CELL DISTRI WIDTH 13.3 % Normal 0-14.5 [facility] Comment on above: Performed By: #### C BCD, DAILY, BHCG, CMP, ETOH, LIP, PT #### [facility] [address] [place] [address] 77221 WBC #/vol (Bld) 10.9 10*3/uL High 4.8-10.8 [facility] Comment on above: Performed By: #### C BCD, DAILY, BHCG, CMP, ETOH, LIP, PT #### [facility] [address] [place] [address] 66692 COMPREHENSIVE METABOLIC PANE [place] 10-10-2018 Albumin mass conc 3.6 gm/dl Normal 3.1-4.5 [facility] Comment on above: Performed By: #### C BCD, DAILY, BHCG, CMP, ETOH, LIP, PT #### [facility] [address] [place] [address] 59503 ALP enzyme act/vol 96 U/L Normal 45-117 [facility] Comment on above: Performed By: #### C BCD, DAIYL, BHCG, CMP, ETOH, LIP, PT #### [facility] [address] [place] [address] 87883 ALT enzyme act/vol 50 U/L Normal 12-78 [facility] Comment on above: Performed By: #### C BCD, DAILY, BHCG, CMP, ETOH, LIP, PT #### [facility] [address] [place] [address] 78136 Bilirubin mass conc 0.4 mg/dL Normal 0.2-1.0 [facility] Comment on above: Performed By: #### C BCD, DAILY, BHCG, CMP, ETOH, LIP, PT #### [facility] [address] [place] [address] 54260 Calcium mass conc 9.0 mg/dL Normal 8.5-10.5 [facility] Comment on above: Performed By: #### C BCD, DAILY, BHCG, CMP, ETOH, LIP, PT #### [facility] [address] [place] [address] Chloride molar conc 109 mmol/L High 98-107 [facility] Comment on above: Performed By: #### C BCD, DAILY, BHCG, CMP, ETOH, LIP, PT #### [facility] [address] [place] [address] CO2 molar conc 25 mmol/L Normal 21-32 [facility] Comment on above: Performed By: #### C BCD, DAILY, BHCG, CMP, ETOH, LIP, PT #### [facility] [address] [place] [address] Creatinine mass conc 0.63 mg/dL Normal 0.55-1.02 [facility] Comment on above: Performed By: #### C BCD, DAILY, BHCG, CMP, ETOH, LIP, PT #### [facility] [address] [place] [address] EST GLOM FILT > 60 Normal [facility] Comment on above: Result Comment: Result Units: mL/min/1.73 m2 Note: Persistent reduction for 3 months or more of an eGFR of <60 ml/min/1.73 m2 defines Chronic Kidney Disease (CKD). Patients with eGFR values greater than or equal to 60 ml/min/1.73 m2 may also have CKD if evidence of persistent proteinuria is present. STAGES OF CKD eGFR Stage 1 Kidney damage with normal kidney function >=90 Stage 2 Kidney damage with mild loss of kidney function 89-60 Stage 3a Mild to moderate loss of kidney function 59-44 Stage 3b Moderate to severe loss of kidney function 43-30 Stage 4 Severe loss of kidney function 29-15 Stage 5 Kidney failure < 15 . Performed By: #### C BCD, DAILY, BHCG, CMP, ETOH, LIP, PT #### [facility] [address] [place] [address] ESTIMATED GLOM FILT RATE > 60 Normal [facility] Comment on above: Performed By: #### C BCD, DAILY, BHCG, CMP, ETOH, LIP, PT #### [facility] [address] [place] [address] Glucose mass conc 106 mg/dL High 65-99 [facility] Comment on above: Performed By: #### C BCD, DAILY, BHCG, CMP, ETOH, LIP, PT #### [facility] [address] [place] [address] Potassium molar conc 3.6 mmol/L Normal 3.5-5.1 [facility] Comment on above: Performed By: #### C BCD, DAILY, BHCG, CMP, ETOH, LIP, PT #### [facility] [address] [place] [address] Protein mass conc 8.1 g/dL Normal 6.4-8.2 [facility] Comment on above: Performed By: #### C BCD, DAILY, BHCG, CMP, ETOH, LIP, PT #### [facility] [address] [place] [address] SGOT/AST 33 IU/L Normal 3-35 [facility] Comment on above: Performed By: #### C BCD, DAILY, BHCG, CMP, ETOH, LIP, PT #### [facility] [address] [place] [address] Sodium molar conc 142 mmol/L Normal 136-145 [facility] Comment on above: Performed By: #### C BCD, DAILY, BHCG, CMP, ETOH, LIP, PT #### [facility] [address] [place] [address] Urea nitrogen mass conc 4 mg/dL Low 7-24 [facility] Comment on above: Performed By: #### C BCD, DAILY, BHCG, CMP, ETOH, LIP, PT #### [facility] [address] [place] [address] 29741 ELECTROCARDIOGRAM REPORTon 1 12-11-2017 [employer] Bus [employer] Report [place], [place] ELECTROCARDIOGRAM REPORT NAME: AMRISA OLMOS Dominique UNIT #: [id number] ROOM: [facility] DOCTOR: EPIPHANY DRAFT REPORT BIRTHDATE: [birth year] [facility] Test Date: 2018-10-10 Test Time: 14:09:54 Pat Name: MARISA OLMOS Department: Room: [facility] 1 Gender: F It Trainer: Paula Persaud : 1990 Requested By: CHREYL LAKE Order Number: [id number] Reading MD: Sharon Olmos MD Measurements Intervals [place] Rate: 68 P: 45 LA: 150 QRS: 36 QRSD: 79 T: 26 QT: 399 QTc: 425 Interpretive Statements Sinus rhythm Probable left atrial enlargement Baseline wander in lead(s) V1 Electronically Signed On 10-11-2018 8:48:11 PST by Sharon Olmos MD CM:EKGRPT:ELECTROCARDI OGRAM REPORT [id number] CHERYL LAKE DO EPIPHANY DRAFT REPORT CHERYL LAKE DO Normal [facility] ETHYL ALCOHOLon 10-10-2018 ETHYL ALCOHOL < 3.0 Normal <3 [facility] Comment on above: Performed By: #### C BCD, DAILY, BHCG, CMP, ETOH, LIP, PT #### [facility] [address] [place] [address] LIPASEon 10-10-2018 Lipase enzyme act/vol 45 U/L Low 73-393 [facility] Comment on above: Performed By: #### C BCD, DAILY, BHCG, CMP, ETOH, LIP, PT #### [facility] [address] [place] [address] 88380 PROTHROMBIN TIMEon 8 Prothrombin time (PT) Coag time (PPP) 11.0 s Normal 8.9-12.2 [facility] Comment on above: Performed By: #### C BCD, DAILY, BHCG, CMP, ETOH, LIP, PT #### [facility] [address] [place] [address] 19375 Prothrombin time (PT) Coag time (PPP) 1.0 s Low 2.0-3.5 [facility] Comment on above: Result Comment: INR THERAPEUTIC RANGE: GROUP A 2.0-3.0 INR GROUP B 2.5-3.5 INR GROUP A SUGGESTED INDICATIONS: PROPHYLAXIS AND TREATMENT OF VENOUS THROMBOSIS TREATMENT OF PULMONARY EMBOLISM ATRIAL FIBRILLATION GROUP B SUGGESTED INDICATIONS: MECHANICAL PROSTHETIC VALVES Performed By: #### C BCD, DAILY, BHCG, CMP, ETOH, LIP, PT #### [facility] [address] [place] [address] URINALYSIS REFLEX TO CULTURE on 10-10-2018 Bacteria LM.HPF #/area (Urine sed) 2+ Abnormal [facility] Comment on above: Performed By: #### U ARFXUC #### [facility] [address] [place] [address] Bilirubin mass conc Negative Normal NEGATIVE [facility] Comment on above: Performed By: #### U ARFXUC #### [facility] [address] [place] [address] 04740 BLOOD Negative Normal NEGATIVE [facility] Comment on above: Performed By: #### U ARFXUC #### [facility] [address] [place] [address] Clarity Nom (U) SL CLOUDY Normal CLEAR [facility] Comment on above: Performed By: #### U ARFXUC #### [facility] [address] [place] [address] 84326 Color Nom (U) YELLOW Normal YELLOW [facility] Comment on above: Performed By: #### U ARFXUC #### [facility] [address] [place] [address] Epithelial cells LM.HPF #/area (Urine sed) 10-15 Normal [facility] Comment on above: Performed By: #### U ARFXUC #### [facility] [address] [place] [address] 63953 Glucose mass conc Negative Normal NEGATIVE [facility] Comment on above: Performed By: #### U ARFXUC #### [facility] [address] [place] [address] 21968 KETONE Negative Normal NEGATIVE [facility] Comment on above: Performed By: #### U ARFXUC #### [facility] [address] [place] [address] LEUKO ESTERASE 1+ Abnormal NEGATIVE [facility] Comment on above: Performed By: #### U ARFXUC #### [facility] [address] [place] [address] Nitrite Ql (U) Negative Normal NEGATIVE [facility] Comment on above: Performed By: #### U ARFXUC #### [facility] [address] [place] [address] pH (Bld) 8.5 Normal 5.0-9.0 [facility] Comment on above: Performed By: #### U ARFXUC #### [facility] [address] [place] [address] 13289 Protein mass conc (U) Negative Normal NEGATIVE [facility] Comment on above: Performed By: #### U ARFXUC #### [facility] [address] [place] [address] 06073 RBC #/vol (U) 11-15 Normal 0-2 [facility] Comment on above: Performed By: #### U ARFXUC #### [facility] [address] [place] [address] 77787 Specific gravity Relative Density (U) 1.015 Normal 1.005-1.030 [facility] Comment on above: Performed By: #### U ARFXUC #### [facility] [address] [place] [address] 20536 URINE REFLEX COMMENT YES Normal NO [facility] Comment on above: Result Comment: REFL EX CRITERIA MET FOR URINE CULTURE Performed By: #### U ARFXUC #### [facility] [address] [place] [address] 06640 Urobilinogen Qn (U) 0.2 E.U./dl Normal 0.2-1.0 [facility] Comment on above: Performed By: #### U ARFXUC #### [facility] [address] [place] [address] WBC #/vol (Bld) 51-100 Normal 0-5 [facility] Comment on above: Performed By: #### U ARFXUC #### [facility] [address] [place] [address] URINE CULTUREon 10-10-2018 Bacteria identified Cx Nom (U) URINE CULTURE #1: HEAVY GNB COLONY COUNT >100,000 ESCHERICHIA COLI (ORGANISM ID: [id number]) - Isolated ORGANISM ID: [id number] ANTIBIOTIC INTERPRETATION IBETH STATUS AMPICILLIN/SULBACTAM S <8/4 F AMIKACIN S <16 F AMPICILLIN S <8 F AZTREONAM S <4 F CEFTRIAXONE S <8 F CEFTAZIDIME S <1 F CEFOTAXIME S <2 F CEFOXITIN S <8 F CEFAZOLIN S <8 F CIPROFLOXICIN S <1 F CEFEPIME S <4 F CEFUROXIME S <4 F ERTAPENEM S <1 F NITROFURANTOIN S <32 F GENTAMICIN S <4 F LEVOFLOXACIN S <2 F MEROPENEM S <1 F PIPERACILLIN/TAZOBACTA M S <16 F TRIMETHOPRIM/SULFAMETH OXAZOLE R >2/38 F TETRACYCLINE S <4 F TOBRAMYCIN S <4 F Normal [facility] Comment on above: Performed By: #### C BCD, DAILY, BHCG, CMP, ETOH, LIP, PT #### [facility] [address] [place] [address] URINE DRUG SCREENon 10-10-20 18 URINE AMPHETAMINES < 1000 Normal 1000ng/ml [facility] Comment on above: Performed By: #### U DRG #### [facility] [address] [place] [address] URINE BARBITURATES < 200 Normal 200ng/ml [facility] Comment on above: Performed By: #### U DRG #### [facility] [address] [place] [address] URINE BENZODIAZEPINES < 200 Normal 200ng/ml [facility] Comment on above: Performed By: #### U DRG #### [facility] [address] [place] [address] URINE CANNABINOIDS (THC) < 50 Normal 50ng/ml [facility] Comment on above: Performed By: #### U DRG #### [facility] [address] [place] [address] 12811 URINE COCAINE < 300 Normal 300ng/ml [facility] Comment on above: Performed By: #### U DRG #### [facility] [address] [place] [address] URINE METHADONE < 300 Normal 300ng/ml [facility] Comment on above: Performed By: #### U DRG #### [facility] [address] [place] [address] 87738 URINE OPIATES > 300 Abnormal 300ng/ml [facility] Comment on above: Performed By: #### U DRG #### [facility] [address] [place] [address] 65752 URINE PHENCYCLIDINE < 25 Normal 25ng/ml [facility] Comment on above: Result Comment: pH o f the urine has been checked and is within acceptable range 5-8 The Drugs of Abuse are screening results only. Confirmation and Quantitation by GC/MS can be performed by request at an additional charge. ANYTHING EQUAL TO OR GREATER THAN THE REFERENCE INDICATES ABUSE. ( > = POSITIVE < = NEGATIVE ) Performed By: #### U DRG #### [facility] [address] [place] [address] 35446 Comp Metabolic Panelon 11-30 Calcium 9.2 mg/dL Normal 8.4-10.2 [facility] Comment on above: Performed By: #### H EMOG, CMP3, ETOH4, QWAL ####[address] [address] Alanine aminotransferase (ALT) 53 U/L Normal 13-69 [facility] Comment on above: Performed By: #### H EMOG, CMP3, ETOH4, QWAL ####[place] [address] [place] [address] Alkaline phosphatase (ALP) 67 U/L Normal 38-126 [facility] Comment on above: Performed By: #### H EMOG, CMP3, ETOH4, QWAL ####[address] [place] [address] Anion gap 9 mmol/L Normal [facility] Comment on above: Performed By: #### H EMOG, CMP3, ETOH4, QWAL ####[address] [place] [place] [address] Aspartate aminotransferase (AST) 40 U/L Normal 15-46 [facility] Comment on above: Performed By: #### H EMOG, CMP3, ETOH4, QWAL ####[address] [place] [address] Bilirubin (total) 0.4 mg/dL Normal 0.2-1.3 [facility] Comment on above: Performed By: #### H EMOG, CMP3, ETOH4, QWAL ####[address] [place] [address] CO2 25 mmol/L Normal 22-30 [facility] Comment on above: Performed By: #### H EMOG, CMP3, ETOH4, QWAL ####[address] [place] [address] Creatinine 0.59 mg/dL Normal 0.52-1.25 [facility] Comment on above: Performed By: #### H EMOG, CMP3, ETOH4, QWAL ####[address] [place] [address] eGFR (black) mL/min/{1.73_m2} Normal >60 [facility] Comment on above: Performed By: #### H EMOG, CMP3, ETOH4, QWAL ####[address] [place] [place] [address] eGFR (non-black) mL/min/{1.73_m2} Normal >60 [facility] Comment on above: Result Comment: Sour ce- MDRD equation with creatinine calibration to IDMS(NKDEP)eGFR not recommended for drug dose adjustment Performed By: #### H EMOG, CMP3, ETOH4, QWAL ####[address] [address] Glucose mass conc 98 mg/dL Normal 70-100 [facility] Comment on above: Performed By: #### H EMOG, CMP3, ETOH4, QWAL ####[address] [address] Protein 8.0 g/dL Normal 6.3-8.2 [facility] Comment on above: Performed By: #### H EMOG, CMP3, ETOH4, QWAL ####[address] [address] Urea nitrogen 8 mg/dL Normal 7-20 [facility] Comment on above: Performed By: #### H EMOG, CMP3, ETOH4, QWAL ####[address] [address] Potassium molar conc 3.9 mmol/L Normal 3.5-5.1 [facility] Comment on above: Performed By: #### H EMOG, CMP3, ETOH4, QWAL ####[address] [address] Sodium 144 mmol/L Normal 137-145 [facility] Comment on above: Performed By: #### H EMOG, CMP3, ETOH4, QWAL ####[address] [address] Albumin 4.3 g/dL Normal 3.5-5.0 [facility] Comment on above: Performed By: #### H EMOG, CMP3, ETOH4, QWAL ####[address] [address] Chloride 110 mmol/L High 98-107 [facility] Comment on above: Performed By: #### H EMOG, CMP3, ETOH4, QWAL ####[address] [address] Drugs of Abuseon 11-30-2017 Opiates, Ur Negative Normal [facility] Comment on above: Performed By: #### D RGA4 ####[address] [place] [address] Phencyclidine (PCP), Ur Negative Normal [facility] Comment on above: Result Comment: The expected value for all of the drugs listedabove is Negative.The following drugs or drug groups have been screenedfor by Immunoassay at the following thresholds:Amphetamine class (1000 ng/mL), Barbiturates (200 ng/mL),Benzodiazepines (200 ng/mL), Cocaine (300 ng/mL),Methadone (300 ng/mL), Opiates (300 ng/mL),Oxycodone (100 ng/mL), and PCP (25 ng/mL).NOTE: These results are for medical treatment only.Analysis performed using non-forensic procedures. Performed By: #### D RGA4 ####[address] [address] Methadone, Ur Negative Normal [facility] Comment on above: Performed By: #### D RGA4 ####[address] [place] [address] Amphetamines, Ur Negative Normal [facility] Comment on above: Performed By: #### D RGA4 ####[address] [place] [address] Cocaine, Ur Negative Normal [facility] Comment on above: Performed By: #### D RGA4 ####[address] [place] [address] Barbiturates, Ur Negative Normal [facility] Comment on above: Performed By: #### D RGA4 ####[address] [address] Benzodiazepines, Ur Negative Normal [facility] Comment on above: Performed By: #### D RGA4 ####[place] [address] Oxycodone/Oxymorphine ,Ur Negative Normal [facility] Comment on above: Performed By: #### D RGA4 ####[address] [place] [address] Ethanol Serum/Plasmaon 11-30 Ethanol-Serum/Plasma <0.010 Normal 0.000-0.010 [facility] Comment on above: Result Comment: NOTE : This result is for medical treatment only.Analysis performed using non-forensic procedures. Performed By: #### H EMOG, CMP3, ETOH4, QWAL ####[place] [address] Hemogramon 11-30-2017 Erythrocyte distribution width Auto Ratio (RBC) 13.4 % Normal 11.5-14.5 [facility] Comment on above: Performed By: #### H EMOG, CMP3, ETOH4, QWAL ####[place] [address] Erythrocytes (RBC) 4.60 10*6/uL Normal 3.80-5.20 [facility] Comment on above: Performed By: #### H EMOG, CMP3, ETOH4, QWAL ####[place] [address] Hematocrit (HCT) 40.7 % Normal 35.0-47.0 [facility] Comment on above: Performed By: #### H EMOG, CMP3, ETOH4, QWAL ####[place] [address] Hemoglobin mass conc (Bld) 13.7 g/dL Normal 11.7-16.0 [facility] Comment on above: Performed By: #### H EMOG, CMP3, ETOH4, QWAL ####[place] [address] MCH 29.8 pg Normal 26.0-34.0 [facility] Comment on above: Performed By: #### H EMOG, CMP3, ETOH4, QWAL ####[place] [address] MCHC mass conc (RBC) 33.7 % Normal 32.0-36.0 [facility] Comment on above: Performed By: #### H EMOG, CMP3, ETOH4, QWAL ####[place] [address] MCV 88.4 fL Normal 79.0-98.0 [facility] Comment on above: Performed By: #### H EMOG, CMP3, ETOH4, QWAL ####[address] [address] Platelet mean volume (PMV) 8.2 fL Normal 7.4-10.4 [facility] Comment on above: Performed By: #### H EMOG, CMP3, ETOH4, QWAL ####[address] [address] Platelets 299 10*3/uL Normal 140-440 [facility] Comment on above: Performed By: #### H EMOG, CMP3, ETOH4, QWAL ####[address] [address] WBC (Leukocytes) 11.0 10*3/uL High 3.6-10.7 [facility] Comment on above: Performed By: #### H EMOG, CMP3, ETOH4, QWAL ####[address] [address] hCG Qual Pregon 11-30-2017 hCG Qual Preg Negative Normal [facility] Comment on above: Result Comment: REF RANGE:Negative .... < 3Questionable Rpt 48-72 HrPositive ..... > 10 Performed By: #### H EMOG, CMP3, ETOH4, QWAL ####[address] [address] Vital Signs Date Time Vital Sign Value Performing Clinician Facility 05-15-2025 11:30-0400 Body mass index (BMI) [Ratio] 29.95 kg/m2 Ermias Lockwood MD Work Phone: [facility] 05-15-2025 11:30-0400 Body temperature 98.6 [degF] Ermias Lockwood MD Work Phone: [facility] 05-15-2025 11:30-0400 Body weight 74.3 kg Emrias Lockwood MD Work Phone: [facility] 05-15-2025 11:30-0400 Diastolic blood pressure 76 mm[Hg] Ermias Lockwood MD Work Phone: [facility] 05-15-2025 11:30-0400 Heart rate 86 /min Ermias Lockwood MD Work Phone: [facility] 05-15-2025 11:30-0400 SaO2% (BldA) [Mass fraction] 96 % Ermias Lockwood MD Work Phone: [facility] 05-15-2025 11:30-0400 Systolic blood pressure 112 mm[Hg] Ermias Lockwood MD Work Phone: [facility] 03-27-2025 12:04-0400 Body height 157.5 cm Edith Salguero PA-C Work Phone: [facility] 03-27-2025 12:04-0400 Body mass index (BMI) [Ratio] 29.44 kg/m2 Edith Salguero PA-C Work Phone: [facility] 03-27-2025 12:04-0400 Body temperature 97.9 [degF] Edith Salguero PA-C Work Phone: [facility] 03-27-2025 12:04-0400 Body weight 73.03 kg Edith Salguero PA-C Work Phone: [facility] 03-27-2025 12:04-0400 Diastolic blood pressure 82 mm[Hg] Edith Salguero PA-C Work Phone: [facility] 03-27-2025 12:04-0400 Heart rate 97 /min Edith Salguero PA-C Work Phone: [facility] 03-27-2025 12:04-0400 Respiratory rate 16 /min Edith Salguero PA-C Work Phone: [facility] 03-27-2025 12:04-0400 SaO2% (BldA) [Mass fraction] 97 % Edith Salguero PA-C Work Phone: [facility] 03-27-2025 12:04-0400 Systolic blood pressure 112 mm[Hg] Edith Salguero PA-C Work Phone: [facility] 03-25-2025 14:39-0400 Body mass index (BMI) [Ratio] 28.53 kg/m2 Cristhian Frye GLASS ROLLING MACHINE OPERATOR.CNM Work Phone: [facility] 03-25-2025 14:39-0400 Body weight 70.76 kg Cristhian Frye GLASS ROLLING MACHINE OPERATOR.CNM Work Phone: [facility] 03-25-2025 14:39-0400 Diastolic blood pressure 76 mm[Hg] Cristhian Frye GLASS ROLLING MACHINE OPERATOR.CNM Work Phone: [facility] 03-25-2025 14:39-0400 Systolic blood pressure 122 mm[Hg] Cristhian Frye GLASS ROLLING MACHINE OPERATOR.CNM Work Phone: [facility] 02-04-2025 16:54-0400 Body mass index (BMI) [Ratio] 30.24 kg/m2 Steven Leonard MD Work Phone: [facility] 02-04-2025 16:54-0400 Body temperature 98.01 [degF] Steven Leonard MD Work Phone: [facility] 02-04-2025 16:54-0400 Body weight 75 kg Steven Leonard MD Work Phone: [facility] 02-04-2025 16:54-0400 Diastolic blood pressure 78 mm[Hg] Steven Leonard MD Work Phone: [facility] 02-04-2025 16:54-0400 Heart rate 90 /min Steven Leonard MD Work Phone: [facility] 02-04-2025 16:54-0400 Respiratory rate 16 /min Steven Leonard MD Work Phone: [facility] 02-04-2025 16:54-0400 SaO2% (BldA) [Mass fraction] 99 % Steven Leonard MD Work Phone: [facility] 02-04-2025 16:54-0400 Systolic blood pressure 124 mm[Hg] Steven Leonard MD Work Phone: [facility] 12-24-2024 17:11-0500 Body mass index (BMI) [Ratio] 31.25 kg/m2 Ceasar Praisler-Wood GLASS ROLLING MACHINE OPERATOR.STEEL WHEEL ENGRAVER Work Phone: [facility] 12-24-2024 17:11-0500 Body temperature 98.91 [degF] Ceasar Praisler-Wood GLASS ROLLING MACHINE OPERATOR.STEEL WHEEL ENGRAVER Work Phone: [facility] 12-24-2024 17:11-0500 Body weight 77.5 kg Ceasar Praisler-Wood GLASS ROLLING MACHINE OPERATOR.STEEL WHEEL ENGRAVER Work Phone: [facility] 12-24-2024 17:11-0500 Diastolic blood pressure 74 mm[Hg] Ceasar Praisler-Wood GLASS ROLLING MACHINE OPERATOR.STEEL WHEEL ENGRAVER Work Phone: [facility] 12-24-2024 17:11-0500 Heart rate 82 /min Ceasar Praisler-Wood GLASS ROLLING MACHINE OPERATOR.STEEL WHEEL ENGRAVER Work Phone: [facility] 12-24-2024 17:11-0500 Respiratory rate 16 /min Ceasar Praisler-Wood GLASS ROLLING MACHINE OPERATOR.STEEL WHEEL ENGRAVER Work Phone: [facility] 12-24-2024 17:11-0500 SaO2% (BldA) [Mass fraction] 98 % Ceasar Praisler-Wood GLASS ROLLING MACHINE OPERATOR.STEEL WHEEL ENGRAVER Work Phone: [facility] 12-24-2024 17:11-0500 Systolic blood pressure 110 mm[Hg] Ceasar Praisler-Wood GLASS ROLLING MACHINE OPERATOR.STEEL WHEEL ENGRAVER Work Phone: [facility] 12-22-2024 14:45-0500 Body height 157.5 cm Cristhian Plotts GLASS ROLLING MACHINE OPERATOR.CNM Work Phone: [facility] 12-22-2024 14:45-0500 Body mass index (BMI) [Ratio] 32.37 kg/m2 Cristhian Plotts GLASS ROLLING MACHINE OPERATOR.CNM Work Phone: [facility] 12-22-2024 14:45-0500 Body weight 80.29 kg Cristhian Plotts GLASS ROLLING MACHINE OPERATOR.CNM Work Phone: [facility] 12-22-2024 14:45-0500 Diastolic blood pressure 68 mm[Hg] Cristhian Frye GLASS ROLLING MACHINE OPERATOR.CNM Work Phone: [facility] 12-22-2024 14:45-0500 Systolic blood pressure 98 mm[Hg] Cristhian Frye GLASS ROLLING MACHINE OPERATOR.CNM Work Phone: [facility] 12-11-2024 17:46-0500 Body mass index (BMI) [Ratio] 32.49 kg/m2 Krislyn Aberegg PA Work Phone: [facility] 12-11-2024 17:46-0500 Body temperature 98.49 [degF] Krislyn Aberegg PA Work Phone: [facility] 12-11-2024 17:46-0500 Body weight 78 kg Krislyn Aberegg PA Work Phone: [facility] 12-11-2024 17:46-0500 Diastolic blood pressure 84 mm[Hg] Krislyn Aberegg PA Work Phone: [facility] 12-11-2024 17:46-0500 Heart rate 74 /min Krislyn Aberegg PA Work Phone: [facility] 12-11-2024 17:46-0500 Respiratory rate 20 /min Krislyn Aberegg PA Work Phone: [facility] 12-11-2024 17:46-0500 SaO2% (BldA) [Mass fraction] 97 % Krislyn Aberegg PA Work Phone: [facility] 12-11-2024 17:46-0500 Systolic blood pressure 119 mm[Hg] Krislyn Aberegg PA Work Phone: [facility] 12-03-2024 15:24-0500 Body mass index (BMI) [Ratio] 32.95 kg/m2 Minna Diez GLASS ROLLING MACHINE OPERATOR.STEEL WHEEL ENGRAVER Work Phone: [facility] 12-03-2024 15:24-0500 Body weight 79.11 kg Minna Rg GLASS ROLLING MACHINE OPERATOR.STEEL WHEEL ENGRAVER Work Phone: [facility] 12-03-2024 15:24-0500 Diastolic blood pressure 77 mm[Hg] Minna Rg GLASS ROLLING MACHINE OPERATOR.STEEL WHEEL ENGRAVER Work Phone: [facility] 12-03-2024 15:24-0500 Heart rate 79 /min Minna Rg GLASS ROLLING MACHINE OPERATOR.STEEL WHEEL ENGRAVER Work Phone: [facility] 12-03-2024 15:24-0500 Respiratory rate 18 /min Minna Rg GLASS ROLLING MACHINE OPERATOR.STEEL WHEEL ENGRAVER Work Phone: [facility] 12-03-2024 15:24-0500 SaO2% (BldA) [Mass fraction] 98 % Minna Rg GLASS ROLLING MACHINE OPERATOR.STEEL WHEEL ENGRAVER Work Phone: [facility] 12-03-2024 15:24-0500 Systolic blood pressure 116 mm[Hg] Minna Rg GLASS ROLLING MACHINE OPERATOR.STEEL WHEEL ENGRAVER Work Phone: [facility] 11-17-2024 15:27-0500 Body mass index (BMI) [Ratio] 33.03 kg/m2 Ermias Pendlebury GLASS ROLLING MACHINE OPERATOR.STEEL WHEEL ENGRAVER Work Phone: [facility] 11-17-2024 15:27-0500 Body temperature 98.6 [degF] Ermias Pendlearina GLASS ROLLING MACHINE OPERATOR.STEEL WHEEL ENGRAVER Work Phone: [facility] 11-17-2024 15:27-0500 Body weight 79.3 kg Ermias Pendlearina GLASS ROLLING MACHINE OPERATOR.STEEL WHEEL ENGRAVER Work Phone: [facility] 11-17-2024 15:27-0500 Diastolic blood pressure 70 mm[Hg] Ermias Pendlebury GLASS ROLLING MACHINE OPERATOR.STEEL WHEEL ENGRAVER Work Phone: [facility] 11-17-2024 15:27-0500 Heart rate 80 /min Ermias Pendlearina GLASS ROLLING MACHINE OPERATOR.STEEL WHEEL ENGRAVER Work Phone: [facility] 11-17-2024 15:27-0500 Respiratory rate 16 /min Ermias Pendlearina GLASS ROLLING MACHINE OPERATOR.STEEL WHEEL ENGRAVER Work Phone: [facility] 11-17-2024 15:27-0500 SaO2% (BldA) [Mass fraction] 97 % Ermias Thomas GLASS ROLLING MACHINE OPERATOR.STEEL WHEEL ENGRAVER Work Phone: [facility] 11-17-2024 15:27-0500 Systolic blood pressure 120 mm[Hg] Ermias Thomas GLASS ROLLING MACHINE OPERATOR.STEEL WHEEL ENGRAVER Work Phone: [facility] 11-07-2024 12:59-0500 Body mass index (BMI) [Ratio] 31.93 kg/m2 Ermias Lockwood MD Work Phone: [facility] 11-07-2024 12:59-0500 Body temperature 99.39 [degF] Ermias Lockwood MD Work Phone: [facility] 11-07-2024 12:59-0500 Body weight 76.66 kg Ermias Lockwood MD Work Phone: [facility] 11-07-2024 12:59-0500 Diastolic blood pressure 80 mm[Hg] Ermias Lockwood MD Work Phone: [facility] 11-07-2024 12:59-0500 Heart rate 80 /min Ermias Lockwood MD Work Phone: [facility] 11-07-2024 12:59-0500 Respiratory rate 16 /min Ermias Lockwood MD Work Phone: [facility] 11-07-2024 12:59-0500 Systolic blood pressure 114 mm[Hg] Ermias Lockwood MD Work Phone: [facility] 10-07-2024 14:30-0500 Body mass index (BMI) [Ratio] 33.2 kg/m2 Shiloh Athy PA-C Work Phone: [facility] 10-07-2024 14:30-0500 Body temperature 99 [degF] Shiloh Athy PA-C Work Phone: [facility] 10-07-2024 14:30-0500 Body weight 79.7 kg Shiloh Athy PA-C Work Phone: [facility] 10-07-2024 14:30-0500 Diastolic blood pressure 82 mm[Hg] Shiloh Athy PA-C Work Phone: [facility] 10-07-2024 14:30-0500 Heart rate 72 /min Shiloh Athy PA-C Work Phone: [facility] 10-07-2024 14:30-0500 Respiratory rate 18 /min Shiloh Athy PA-C Work Phone: [facility] 10-07-2024 14:30-0500 SaO2% (BldA) [Mass fraction] 98 % Shiloh Athy PA-C Work Phone: [facility] 10-07-2024 14:30-0500 Systolic blood pressure 128 mm[Hg] Shiloh Athy PA-C Work Phone: [facility] 09-23-2024 13:06-0500 Body mass index (BMI) [Ratio] 33.07 kg/m2 Franchesca Alarcon APRN.STEEL WHEEL ENGRAVER Work Phone: [facility] 09-23-2024 13:06-0500 Body weight 79.38 kg Franchesca Alarcon APRN.STEEL WHEEL ENGRAVER Work Phone: [facility] 09-23-2024 13:06-0500 Diastolic blood pressure 76 mm[Hg] Franchesca Alarcon APRN.STEEL WHEEL ENGRAVER Work Phone: [facility] 09-23-2024 13:06-0500 Heart rate 99 /min Franchesca Alarcon APRN.STEEL WHEEL ENGRAVER Work Phone: [facility] 09-23-2024 13:06-0500 Respiratory rate 14 /min Franchesca Alarcon APRN.STEEL WHEEL ENGRAVER Work Phone: [facility] 09-23-2024 13:06-0500 Systolic blood pressure 138 mm[Hg] Franchesca Alarcon APRN.STEEL WHEEL ENGRAVER Work Phone: [facility] 08-19-2024 15:43-0400 Body mass index (BMI) [Ratio] 34.39 kg/m2 Franchesca Alarcon APRN.STEEL WHEEL ENGRAVER Work Phone: [facility] 08-19-2024 15:43-0400 Body weight 82.56 kg Franchesca Alarcon GLASS ROLLING MACHINE OPERATOR.STEEL WHEEL ENGRAVER Work Phone: [facility] 08-19-2024 15:43-0400 Diastolic blood pressure 76 mm[Hg] Franchesca Alarcon GLASS ROLLING MACHINE OPERATOR.STEEL WHEEL ENGRAVER Work Phone: [facility] 08-19-2024 15:43-0400 Heart rate 70 /min Franchesca Alarcon GLASS ROLLING MACHINE OPERATOR.STEEL WHEEL ENGRAVER Work Phone: [facility] 08-19-2024 15:43-0400 Respiratory rate 14 /min Franchesca Alarcon GLASS ROLLING MACHINE OPERATOR.STEEL WHEEL ENGRAVER Work Phone: [facility] 08-19-2024 15:43-0400 Systolic blood pressure 127 mm[Hg] Franchesca Alarcon GLASS ROLLING MACHINE OPERATOR.STEEL WHEEL ENGRAVER Work Phone: [facility] 08-18-2024 13:00-0400 Body mass index (BMI) [Ratio] 34.91 kg/m2 Shiloh Athy PA-C Work Phone: [facility] 08-18-2024 13:00-0400 Body temperature 98.49 [degF] Shiloh Athy PA-C Work Phone: [facility] 08-18-2024 13:00-0400 Body weight 83.8 kg Shiloh Athy PA-C Work Phone: [facility] 08-18-2024 13:00-0400 Diastolic blood pressure 74 mm[Hg] Shiloh Athy PA-C Work Phone: [facility] 08-18-2024 13:00-0400 Heart rate 88 /min Shiloh Athy PA-C Work Phone: [facility] 08-18-2024 13:00-0400 Respiratory rate 16 /min Shiloh Athy PA-C Work Phone: [facility] 08-18-2024 13:00-0400 SaO2% (BldA) [Mass fraction] 97 % Shiloh Athy PA-C Work Phone: [facility] 08-18-2024 13:00-0400 Systolic blood pressure 110 mm[Hg] Shiloh Putnam PA-C Work Phone: [facility] 07-29-2024 16:13-0400 Body mass index (BMI) [Ratio] 36.91 kg/m2 Krislyn Aberegg PA Work Phone: [facility] 07-29-2024 16:13-0400 Body temperature 99.7 [degF] Krislyn Aberegg PA Work Phone: [facility] 07-29-2024 16:130400 Body weight 88.6 kg Krislyn Aberegg PA Work Phone: [facility] 07-29-2024 16:13-0400 Diastolic blood pressure 84 mm[Hg] Krislyn Aberegg PA Work Phone: [facility] 07-29-2024 16:13-0400 Heart rate 84 /min Krislyn Aberegg PA Work Phone: [facility] 07-29-2024 16:13-0400 Respiratory rate 16 /min Krislyn Aberegg PA Work Phone: [facility] 07-29-2024 16:13-0400 SaO2% (BldA) [Mass fraction] 98 % Krislyn Aberegg PA Work Phone: [facility] 07-29-2024 16:13-0400 Systolic blood pressure 144 mm[Hg] Krislyn Aberegg PA Work Phone: [facility] 07-03-2024 11:26-0400 Body mass index (BMI) [Ratio] 35.87 kg/m2 Earlene Watkins GLASS ROLLING MACHINE OPERATOR.STEEL WHEEL ENGRAVER Work Phone: [facility] 07-03-2024 11:26-040 Body temperature 97.59 [degF] Earlenecoty Watkins GLASS ROLLING MACHINE OPERATOR.STEEL WHEEL ENGRAVER Work Phone: [facility] 07-03-2024 11:26040 Body weight 86.1 kg Earlene Roland GLASS ROLLING MACHINE OPERATOR.STEEL WHEEL ENGRAVER Work Phone: [facility] 07-03-2024 11:26-0400 Diastolic blood pressure 78 mm[Hg] Earlene Watkins GLASS ROLLING MACHINE OPERATOR.STEEL WHEEL ENGRAVER Work Phone: [facility] 07-03-2024 11:26-0400 Heart rate 71 /min Earlenesandra Watkins GLASS ROLLING MACHINE OPERATOR.STEEL WHEEL ENGRAVER Work Phone: [facility] 07-03-2024 11:26-0400 Respiratory rate 19 /min Earlene Watkins GLASS ROLLING MACHINE OPERATOR.STEEL WHEEL ENGRAVER Work Phone: [facility] 07-03-2024 11:26-0400 SaO2% (BldA) [Mass fraction] 97 % Earlene Watkins GLASS ROLLING MACHINE OPERATOR.STEEL WHEEL ENGRAVER Work Phone: [facility] 07-03-2024 11:26-0400 Systolic blood pressure 108 mm[Hg] Earlene Watkins GLASS ROLLING MACHINE OPERATOR.STEEL WHEEL ENGRAVER Work Phone: [facility] 06-17-2024 10:46-0400 Body mass index (BMI) [Ratio] 36.66 kg/m2 Franchesca Alarcon GLASS ROLLING MACHINE OPERATOR.STEEL WHEEL ENGRAVER Work Phone: [facility] 06-17-2024 10:46-0400 Body weight 88 kg Franchesca Alarcon GLASS ROLLING MACHINE OPERATOR.STEEL WHEEL ENGRAVER Work Phone: [facility] 06-17-2024 10:46-0400 Diastolic blood pressure 70 mm[Hg] Franchesca Alarcon GLASS ROLLING MACHINE OPERATOR.STEEL WHEEL ENGRAVER Work Phone: [facility] 06-17-2024 10:46-0400 Heart rate 66 /min Franchesca Alarcon GLASS ROLLING MACHINE OPERATOR.STEEL WHEEL ENGRAVER Work Phone: [facility] 06-17-2024 10:46-0400 Respiratory rate 14 /min Franchesca Alarcon GLASS ROLLING MACHINE OPERATOR.STEEL WHEEL ENGRAVER Work Phone: [facility] 06-17-2024 10:46-0400 Systolic blood pressure 103 mm[Hg] Franchesca Alarcon GLASS ROLLING MACHINE OPERATOR.STEEL WHEEL ENGRAVER Work Phone: [facility] 04-16-2024 13:08-0400 Body mass index (BMI) [Ratio] 35.3 kg/m2 Ermias Lockwood MD Work Phone: [facility] 04-16-2024 13:08-0400 Body temperature 98.49 [degF] Ermias Lockwood MD Work Phone: [facility] 04-16-2024 13:08-0400 Body weight 87.54 kg Ermias Lockwood MD Work Phone: [facility] 04-16-2024 13:08-0400 Diastolic blood pressure 90 mm[Hg] Ermias Lockwood MD Work Phone: [facility] 04-16-2024 13:08-0400 Heart rate 71 /min Ermias Lockwood MD Work Phone: [facility] 04-16-2024 13:08-0400 Respiratory rate 18 /min Ermias Lockwood MD Work Phone: [facility] 04-16-2024 13:08-0400 SaO2% (BldA) [Mass fraction] 95 % Ermias Lockwood MD Work Phone: [facility] 04-16-2024 13:08-0400 Systolic blood pressure 118 mm[Hg] Ermias Lockwood MD Work Phone: [facility] 04-14-2024 15:32-0400 Body mass index (BMI) [Ratio] 36.29 kg/m2 Avila Gant APRN.STEEL WHEEL ENGRAVER Work Phone: [facility] 04-14-2024 15:32-0400 Body temperature 98.29 [degF] Avila Gant APRN.STEEL WHEEL ENGRAVER Work Phone: [facility] 04-14-2024 15:32-0400 Body weight 90 kg Avila Gant GLASS ROLLING MACHINE OPERATOR.STEEL WHEEL ENGRAVER Work Phone: [facility] 04-14-2024 15:32-0400 Diastolic blood pressure 76 mm[Hg] Avila Gant APRN.STEEL WHEEL ENGRAVER Work Phone: [facility] 04-14-2024 15:32-0400 Heart rate 62 /min Avila Gant APRN.STEEL WHEEL ENGRAVER Work Phone: [facility] 04-14-2024 15:32-0400 Respiratory rate 16 /min Avila Gant GLASS ROLLING MACHINE OPERATOR.STEEL WHEEL ENGRAVER Work Phone: [facility] 04-14-2024 15:32-0400 SaO2% (BldA) [Mass fraction] 97 % Avila Gant APRN.STEEL WHEEL ENGRAVER Work Phone: [facility] 04-14-2024 15:32-0400 Systolic blood pressure 136 mm[Hg] Avila Gant GLASS ROLLING MACHINE OPERATOR.STEEL WHEEL ENGRAVER Work Phone: [facility] 04-04-2024 12:07-0400 Body mass index (BMI) [Ratio] 35.48 kg/m2 Krislyn Aberegg PA Work Phone: [facility] 04-04-2024 12:07-0400 Body temperature 98.4 [degF] Krislyn Aberegg PA Work Phone: [facility] 04-04-2024 12:07-0400 Body weight 88 kg Krislyn Aberegg PA Work Phone: [facility] 04-04-2024 12:07-0400 Diastolic blood pressure 80 mm[Hg] Krislyn Aberegg PA Work Phone: [facility] 04-04-2024 12:07-0400 Heart rate 78 /min Krislyn Aberegg PA Work Phone: [facility] 04-04-2024 12:07-0400 Respiratory rate 18 /min Krislyn Aberegg PA Work Phone: [facility] 04-04-2024 12:07-0400 SaO2% (BldA) [Mass fraction] 97 % Krislyn Aberegg PA Work Phone: [facility] 04-04-2024 12:07-0400 Systolic blood pressure 118 mm[Hg] Krislyn Aberegg PA Work Phone: [facility] 03-14-2024 11:34-0400 Body mass index (BMI) [Ratio] 35.3 kg/m2 Franchesca Alarcon GLASS ROLLING MACHINE OPERATOR.STEEL WHEEL ENGRAVER Work Phone: [facility] 03-14-2024 11:34-0400 Body weight 87.54 kg Franchesca Alarcon GLASS ROLLING MACHINE OPERATOR.STEEL WHEEL ENGRAVER Work Phone: [facility] 03-14-2024 11:34-0400 Diastolic blood pressure 78 mm[Hg] Franchesca Alarcon GLASS ROLLING MACHINE OPERATOR.STEEL WHEEL ENGRAVER Work Phone: [facility] 03-14-2024 11:34-0400 Heart rate 93 /min Franchesca Alarcon GLASS ROLLING MACHINE OPERATOR.STEEL WHEEL ENGRAVER Work Phone: [facility] 03-14-2024 11:34-0400 Respiratory rate 14 /min Franchesca Alarcon GLASS ROLLING MACHINE OPERATOR.STEEL WHEEL ENGRAVER Work Phone: [facility] 03-14-2024 11:34-0400 Systolic blood pressure 118 mm[Hg] Franchesca Alarcon GLASS ROLLING MACHINE OPERATOR.STEEL WHEEL ENGRAVER Work Phone: [facility] 03-03-2024 16:08-0400 Body mass index (BMI) [Ratio] 35.26 kg/m2 Candi Pizano GLASS ROLLING MACHINE OPERATOR.STEEL WHEEL ENGRAVER Work Phone: [facility] 03-03-2024 16:08-0400 Body weight 87.45 kg Candi Pizano GLASS ROLLING MACHINE OPERATOR.STEEL WHEEL ENGRAVER Work Phone: [facility] 03-03-2024 16:08-0400 Diastolic blood pressure 74 mm[Hg] Candi Pizano GLASS ROLLING MACHINE OPERATOR.STEEL WHEEL ENGRAVER Work Phone: [facility] 03-03-2024 16:08-0400 Systolic blood pressure 118 mm[Hg] Candi Pizano GLASS ROLLING MACHINE OPERATOR.STEEL WHEEL ENGRAVER Work Phone: [facility] 01-19-2024 08:34-0400 Body weight 88 kg Ermias Lockwood MD Work Phone: [facility] 01-19-2024 08:34-0400 Diastolic blood pressure 74 mm[Hg] Ermias Lockwood MD Work Phone: [facility] 01-19-2024 08:34-0400 Heart rate 90 /min Ermias Lockwood MD Work Phone: [facility] 01-19-2024 08:34-0400 Respiratory rate 14 /min Ermias Lockwood MD Work Phone: [facility] 01-19-2024 08:34-0400 Systolic blood pressure 108 mm[Hg] Ermias Lockwood MD Work Phone: [facility] 01-08-2024 17:01-0400 Body temperature 97.7 [degF] Krislyn Aberegg PA Work Phone: [facility] 01-08-2024 17:01-0400 Body weight 88.2 kg Krislyn Aberegg PA Work Phone: [facility] 01-08-2024 17:01-0400 Diastolic blood pressure 80 mm[Hg] Krislyn Aberegg PA Work Phone: [facility] 01-08-2024 17:01-0400 Heart rate 96 /min Krislyn Aberegg PA Work Phone: [facility] 01-08-2024 17:01-0400 Respiratory rate 16 /min Krislyn Aberegg PA Work Phone: [facility] 01-08-2024 17:01-0400 SaO2% (BldA) [Mass fraction] 98 % Krislyn Aberegg PA Work Phone: [facility] 01-08-2024 17:01-0400 Systolic blood pressure 124 mm[Hg] Krislyn Aberegg PA Work Phone: [facility] 12-21-2023 08:38-0500 Body weight 87.09 kg Franchesca Alarcon GLASS ROLLING MACHINE OPERATOR.STEEL WHEEL ENGRAVER Work Phone: [facility] 12-21-2023 08:38-0500 Diastolic blood pressure 76 mm[Hg] Franchesca Alarcon APRN.STEEL WHEEL ENGRAVER Work Phone: [facility] 12-21-2023 08:38-0500 Heart rate 102 /min Franchesca Alarcon APRN.STEEL WHEEL ENGRAVER Work Phone: [facility] 12-21-2023 08:38-0500 Respiratory rate 14 /min Franchesca Alarcon GLASS ROLLING MACHINE OPERATOR.STEEL WHEEL ENGRAVER Work Phone: [facility] 12-21-2023 08:38-0500 Systolic blood pressure 110 mm[Hg] Franchesca Alarcon GLASS ROLLING MACHINE OPERATOR.STEEL WHEEL ENGRAVER Work Phone: [facility] 12-17-2023 16:47-0500 Diastolic blood pressure 80 mm[Hg] LELIA EDWARDS MD [facility] 12-17-2023 16:47-0500 Heart rate 76 /min LELIA EDWARDS MD [facility] 12-17-2023 16:47-0500 Respiratory rate 16 /min LELIA EDWARDS MD [facility] 12-17-2023 16:47-0500 Systolic blood pressure 124 mm[Hg] LELIA EDWARDS MD [facility] 12-17-2023 13:56-0500 Body height 157.5 cm LELIA EDWARDS MD [facility] 12-17-2023 13:56-0500 Body temperature 97.16 [degF] LELIA EDWARDS MD [facility] 12-17-2023 13:56-0500 Body weight 86.4 kg LELIA EDWARDS MD [facility] 12-17-2023 13:56-0500 Diastolic Blood Pressure Non-Invasive 83 mm[Hg] LELIA EDWARDS MD [facility] 12-17-2023 13:56-0500 Heart rate 88 /min LELIA EDWARDS MD [facility] 12-17-2023 13:56-0500 Respiratory rate 16 /min LELIA EDWARDS MD [facility] 12-17-2023 13:56-0500 Systolic Blood Pressure Non-Invasive 118 mm[Hg] LELIA EDWARDS MD [facility] 08-09-2023 14:14-0400 Body temperature 98.4 [degF] Steven Leonard MD Work Phone: [facility] 08-09-2023 14:14-0400 Body weight 89.09 kg Steven Leonard MD Work Phone: [facility] 08-09-2023 14:14-0400 Diastolic blood pressure 84 mm[Hg] Steven Leonard MD Work Phone: [facility] 08-09-2023 14:14-0400 Heart rate 100 /min Steven Leonard MD Work Phone: [facility] 08-09-2023 14:14-0400 Respiratory rate 20 /min Steven Leonard MD Work Phone: [facility] 08-09-2023 14:14-0400 SaO2% (BldA) [Mass fraction] 95 % Steven Leonard MD Work Phone: [facility] 08-09-2023 14:14-0400 Systolic blood pressure 121 mm[Hg] Steven Leonard MD Work Phone: [facility] 04-12-2023 08:29-0400 Body weight 86.55 kg Asif Mcfarland MD Work Phone: [facility] 04-12-2023 08:29-0400 Diastolic blood pressure 80 mm[Hg] Asif Mcfarland MD Work Phone: [facility] 04-12-2023 08:29-0400 Systolic blood pressure 110 mm[Hg] Asif Mcfarland MD Work Phone: [facility] 02-20-2023 16:15-0400 Body temperature 97.59 [degF] Krislyn Aberegg PA Work Phone: [facility] 02-20-2023 16:15-0400 Body weight 87.09 kg Krislyn Aberegg PA Work Phone: [facility] 02-20-2023 16:15-0400 Diastolic blood pressure 70 mm[Hg] Krislyn Aberegg PA Work Phone: [facility] 02-20-2023 16:15-0400 Heart rate 78 /min Krislyn Aberegg PA Work Phone: [facility] 02-20-2023 16:15-0400 Respiratory rate 16 /min Krislyn Aberegg PA Work Phone: [facility] 02-20-2023 16:15-0400 SaO2% (BldA) [Mass fraction] 98 % Krislyn Aberegg PA Work Phone: [facility] 02-20-2023 16:15-0400 Systolic blood pressure 114 mm[Hg] Krislyn Aberegg PA Work Phone: [facility] 02-02-2023 10:06-0400 Body temperature 97.81 [degF] Ermias Lockwood MD Work Phone: [facility] 02-02-2023 10:06-0400 Body weight 85.28 kg Ermias Lockwood MD Work Phone: [facility] 02-02-2023 10:06-0400 Diastolic blood pressure 84 mm[Hg] Ermias Lockwood MD Work Phone: [facility] 02-02-2023 10:06-0400 Heart rate 82 /min Ermias Lockwood MD Work Phone: [facility] 02-02-2023 10:06-0400 Respiratory rate 18 /min Ermias Lockwood MD Work Phone: [facility] 02-02-2023 10:06-0400 Systolic blood pressure 128 mm[Hg] Ermias Lockwood MD Work Phone: [facility] 01-01-2023 13:42-0500 Body temperature 99 [degF] Ermias Lockwood MD Work Phone: [facility] 01-01-2023 13:42-0500 Body weight 84.82 kg Ermias Lockwood MD Work Phone: [facility] 01-01-2023 13:42-0500 Diastolic blood pressure 84 mm[Hg] Ermias Lockwood MD Work Phone: [facility] 01-01-2023 13:42-0500 Heart rate 88 /min Ermias Lockwood MD Work Phone: [facility] 01-01-2023 13:42-0500 Respiratory rate 16 /min Ermias Lockwood MD Work Phone: [facility] 01-01-2023 13:42-0500 Systolic blood pressure 130 mm[Hg] Ermias Lockwood MD Work Phone: [facility] 11-16-2022 13:24-0500 Body temperature 98.29 [degF] Ceasar Praisler-Wood GLASS ROLLING MACHINE OPERATOR.STEEL WHEEL ENGRAVER Work Phone: [facility] 11-16-2022 13:24-0500 Body weight 82.83 kg Ceasar Praisler-Wood GLASS ROLLING MACHINE OPERATOR.STEEL WHEEL ENGRAVER Work Phone: [facility] 11-16-2022 13:24-0500 Diastolic blood pressure 72 mm[Hg] Ceasar Praisler-Wood GLASS ROLLING MACHINE OPERATOR.STEEL WHEEL ENGRAVER Work Phone: [facility] 11-16-2022 13:24-0500 Heart rate 84 /min Ceasar Praisler-Wood GLASS ROLLING MACHINE OPERATOR.STEEL WHEEL ENGRAVER Work Phone: [facility] 11-16-2022 13:24-0500 Respiratory rate 21 /min Ceasar Praisler-Wood GLASS ROLLING MACHINE OPERATOR.STEEL WHEEL ENGRAVER Work Phone: [facility] 11-16-2022 13:24-0500 SaO2% (BldA) [Mass fraction] 98 % Ceasar Praisler-Wood GLASS ROLLING MACHINE OPERATOR.STEEL WHEEL ENGRAVER Work Phone: [facility] 11-16-2022 13:24-0500 Systolic blood pressure 110 mm[Hg] Ceasar Bonilla APRN.STEEL WHEEL ENGRAVER Work Phone: [facility] 10-12-2022 06:56-0500 Body weight 80.29 kg Daily Sethanna HEATH.STEEL WHEEL ENGRAVER Work Phone: [facility] 10-12-2022 06:56-0500 Diastolic blood pressure 64 mm[Hg] Daily Seth GLASS ROLLING MACHINE OPERATOR.STEEL WHEEL ENGRAVER Work Phone: [facility] 10-12-2022 06:56-0500 Systolic blood pressure 110 mm[Hg] Daily Seth APRN.STEEL WHEEL ENGRAVER Work Phone: [facility] 09-19-2022 15:24-0500 Body temperature 97.81 [degF] Shiloh Athy PA-C Work Phone: [facility] 09-19-2022 15:24-0500 Body weight 78.83 kg Shiloh Athy PA-C Work Phone: [facility] 09-19-2022 15:24-0500 Diastolic blood pressure 74 mm[Hg] Shiloh Athy PA-C Work Phone: [facility] 09-19-2022 15:24-0500 Heart rate 106 /min Shiloh Athy PA-C Work Phone: [facility] 09-19-2022 15:24-0500 Respiratory rate 18 /min Shiloh Athy PA-C Work Phone: [facility] 09-19-2022 15:24-0500 SaO2% (BldA) [Mass fraction] 98 % Shiloh Athy PA-C Work Phone: [facility] 09-19-2022 15:24-0500 Systolic blood pressure 118 mm[Hg] Shiloh Athy PA-C Work Phone: [facility] 08-04-2022 12:16-0400 Body height 156 cm Edith Salugero PA-C Work Phone: [facility] 08-04-2022 12:16-0400 Body temperature 98.2 [degF] Edith Salguero PA-C Work Phone: [facility] 08-04-2022 12:16-0400 Body weight 79.38 kg Edithcelso Salguero PA-C Work Phone: [facility] 08-04-2022 12:16-0400 Diastolic blood pressure 70 mm[Hg] Edith Salguero PA-C Work Phone: [facility] 08-04-2022 12:16-0400 Heart rate 80 /min Edith Salguero PA-C Work Phone: [facility] 08-04-2022 12:16-0400 Respiratory rate 18 /min Edith Salguero PA-C Work Phone: [facility] 08-04-2022 12:16-0400 Systolic blood pressure 110 mm[Hg] Edith Salguero PA-C Work Phone: [facility] 07-21-2022 11:30-0400 Body temperature 98.6 [degF] Earlene Watkins GLASS ROLLING MACHINE OPERATOR.STEEL WHEEL ENGRAVER Work Phone: [facility] 07-21-2022 11:30-0400 Body weight 78.29 kg Earlene Watkins GLASS ROLLING MACHINE OPERATOR.STEEL WHEEL ENGRAVER Work Phone: [facility] 07-21-2022 11:30-0400 Diastolic blood pressure 80 mm[Hg] Earlene Watkins GLASS ROLLING MACHINE OPERATOR.STEEL WHEEL ENGRAVER Work Phone: [facility] 07-21-2022 11:30-0400 Heart rate 100 /min Earlene Watkins GLASS ROLLING MACHINE OPERATOR.STEEL WHEEL ENGRAVER Work Phone: [facility] 07-21-2022 11:30-0400 Respiratory rate 18 /min Earlene Watkins GLASS ROLLING MACHINE OPERATOR.STEEL WHEEL ENGRAVER Work Phone: [facility] 07-21-2022 11:30-0400 SaO2% (BldA) [Mass fraction] 99 % Earlene Watkins GLASS ROLLING MACHINE OPERATOR.STEEL WHEEL ENGRAVER Work Phone: [facility] 07-21-2022 11:30-0400 Systolic blood pressure 132 mm[Hg] Earlene Watkins GLASS ROLLING MACHINE OPERATOR.STEEL WHEEL ENGRAVER Work Phone: [facility] 07-17-2022 11:24-0400 Body temperature 98.4 [degF] Avila Gant GLASS ROLLING MACHINE OPERATOR.STEEL WHEEL ENGRAVER Work Phone: [facility] 07-17-2022 11:24-0400 Body weight 76.66 kg Avila Gant GLASS ROLLING MACHINE OPERATOR.STEEL WHEEL ENGRAVER Work Phone: [facility] 07-17-2022 11:24-0400 Diastolic blood pressure 76 mm[Hg] Avila Gant GLASS ROLLING MACHINE OPERATOR.STEEL WHEEL ENGRAVER Work Phone: [facility] 07-17-2022 11:24-0400 Heart rate 116 /min Avila Gant GLASS ROLLING MACHINE OPERATOR.STEEL WHEEL ENGRAVER Work Phone: [facility] 07-17-2022 11:24-0400 Respiratory rate 18 /min Avila Gant GLASS ROLLING MACHINE OPERATOR.STEEL WHEEL ENGRAVER Work Phone: [facility] 07-17-2022 11:24-0400 SaO2% (BldA) [Mass fraction] 98 % Avila Gant GLASS ROLLING MACHINE OPERATOR.STEEL WHEEL ENGRAVER Work Phone: [facility] 07-17-2022 11:24-0400 Systolic blood pressure 124 mm[Hg] Avila Gant GLASS ROLLING MACHINE OPERATOR.STEEL WHEEL ENGRAVER Work Phone: [facility] 07-11-2022 11:42-0400 Body temperature 98.2 [degF] Rosalind Mcclellan GLASS ROLLING MACHINE OPERATOR.STEEL WHEEL ENGRAVER Work Phone: [facility] 07-11-2022 11:42-0400 Body weight 76.66 kg Rosalind Mcclellan GLASS ROLLING MACHINE OPERATOR.STEEL WHEEL ENGRAVER Work Phone: [facility] 07-11-2022 11:42-0400 Diastolic blood pressure 88 mm[Hg] Rosalind Mcclellan GLASS ROLLING MACHINE OPERATOR.STEEL WHEEL ENGRAVER Work Phone: [facility] 07-11-2022 11:42-0400 Heart rate 88 /min Rosalind Mcclellan GLASS ROLLING MACHINE OPERATOR.STEEL WHEEL ENGRAVER Work Phone: [facility] 07-11-2022 11:42-0400 Respiratory rate 16 /min Rosalind Mcclellan APRN.STEEL WHEEL ENGRAVER Work Phone: [facility] 07-11-2022 11:42-0400 SaO2% (BldA) [Mass fraction] 99 % Rosalind Mcclellan APRN.STEEL WHEEL ENGRAVER Work Phone: [facility] 07-11-2022 11:42-0400 Systolic blood pressure 138 mm[Hg] Rosalind Mcclellan APRN.STEEL WHEEL ENGRAVER Work Phone: [facility] Encounters Encounter Date Encounter Type Care Provider Facility Start: 07-02-2025 End: 07-02-2025 ambulatory Ermias Lockwood Facility:[facility] Start: 06-16-2025 End: 06-16-2025 Telemedicine consultation with patient Javier Reyes DO Work Phone: Neurology Start: 06-16-2025 End: 06-16-2025 ambulatory Javier Reyes DO Work Phone: Neurology Comment on above: Chronic insomnia (Pr imary Dx); Kwok-Ekbom syndrome; RLS (restless legs syndrome); Primary insomnia Start: 06-10-2025 End: 06-10-2025 Refill Irwin Blount APRN.STEEL WHEEL ENGRAVER Work Phone: Neurology Comment on above: Refill Request Start: 06-03-2025 End: 06-03-2025 ambulatory Ermias Jaspreet Facility:[facility] Start: 05-21-2025 End: 05-22-2025 Refill Ermias Lockwood MD Work Phone: [facility] Comment on above: Refill Request Start: 05-20-2025 End: 05-20-2025 ambulatory Ermias Jaspreet Facility:[facility] Start: 05-16-2025 End: 05-18-2025 Follow-up encounter Ermias Lockwood MD Work Phone: [facility] Start: 05-15-2025 End: 05-15-2025 [facility] Irwin Kimomis GLASS ROLLING MACHINE OPERATOR.STEEL WHEEL ENGRAVER Work Phone: Neurology Comment on above: Primary insomnia (Pr imary Dx); RLS (restless legs syndrome); EARLENE (obstructive sleep apnea); Medication management; Overweight (BMI 25.0-29.9); Excessive daytime sleepiness; Fatigue, unspecified type; Inadequate sleep hygiene; Sleep disturbance; Depression, unspecified depression type; PTSD (post-traumatic stress disorder); Anxiety; Current smoker; Marijuana use Pharyngitis, unspeci fied etiology (Primary Dx); URI, acute; Fatigue, unspecified type Start: 05-11-2025 End: 05-11-2025 Refill Nela Noel APRN.STEEL WHEEL ENGRAVER Work Phone: Pain Management Comment on above: Refill Request Start: 05-08-2025 End: 05-08-2025 ambulatory IRWIN BLOUNT Facility:[facility] Start: 05-07-2025 End: 05-07-2025 Chart abstracting Ermias Lockwood MD Work Phone: [facility] Comment on above: Abstract ([facility] ED vis it, without admission) Start: 05-05-2025 End: 05-05-2025 Emergency department patient visit Ermias Lockwood Facility:[facility] Start: 04-27-2025 End: 04-30-2025 ambulatory Javier Reyes DO Work Phone: Neurology Start: 04-27-2025 End: 04-30-2025 Patient encounter procedure Javier Reyes DO Work Phone: Neurology Comment on above: Question on appointm ent medication Start: 04-25-2025 End: 04-27-2025 ambulatory [facility] Start: 04-25-2025 End: 04-27-2025 Patient encounter procedure [facility] Neu[facility] Comment on above: Appointment made for medication Appointment question Start: 04-24-2025 End: 04-24-2025 Refill Irwin Blount APRN.STEEL WHEEL ENGRAVER Work Phone: Neurology Comment on above: Refill Request Start: 04-23-2025 End: 04-24-2025 Refill Minna Diez APRN.STEEL WHEEL ENGRAVER Work Phone: Neurology Comment on above: Refill Request Start: 03-30-2025 End: 03-30-2025 Follow-up encounter Edith Salguero PA-C Work Phone: [facility] [place] Start: 03-27-2025 Encounter for genera l adult medical examination without abnormal findings EDITH SALGUERO [facility] Start: 03-27-2025 End: 03-27-2025 Patient encounter procedure Edith Salguero PA-C Work Phone: [facility] Comment on above: Well adult exam (Mary adair Dx); Gastroesophageal reflux disease with esophagitis without hemorrhage; Hyperlipidemia, mixed; Mild intermittent extrinsic asthma without complication (HCC); RLS (restless legs syndrome); Left ear pain; Bipolar affective disorder, remission status unspecified (HCC); Drug abuse (HCC); PTSD (post-traumatic stress disorder); Depression, unspecified depression type; EARLENE (obstructive sleep apnea); Urgency of urination; History of hepatitis C; Medication management; Screening for diabetes mellitus Start: 03-27-2025 End: 03-27-2025 Patient encounter status Edith Salguero PA-C Work Phone: [facility] Start: 03-27-2025 End: 03-27-2025 ambulatory EDITH SALGUERO Facility:[facility] Start: 03-25-2025 End: 03-25-2025 Patient encounter procedure Cristhian Frye APRN.CNM Work Phone: OB/Gynecology Comment on above: Pelvic pain in femal e (Primary Dx); Chronic pelvic pain in female; History of menorrhagia Start: 03-25-2025 End: 03-25-2025 ambulatory CRISTHIAN FRYE Facility:[facility] Start: 03-19-2025 End: 03-19-2025 ambulatory MICHELLE MASTERS Facility:[facility] Start: 02-05-2025 End: 02-06-2025 ambulatory Minna Diez APRN.CNP Work Phone: Neurology Comment on above: Marisa Santa Start: 02-04-2025 End: 02-04-2025 ambulatory ERMIAS LOCKWOOD Facility:[facility] Start: 02-04-2025 End: 02-04-2025 Office outpatient visit 15 minutes Steven Leonard MD Work Phone: [facility] Comment on above: Dog bite of abdomen (Primary Dx); Dog bite of forearm, right, initial encounter; Dog bite of lower leg, right, initial encounter Start: 02-04-2025 End: 02-04-2025 Telephone encounter Ermias Lockwood MD Work Phone: [facility] [place] Comment on above: Dog Bite Start: 01-16-2025 End: 01-20-2025 Refill Minna Rg GLASS ROLLING MACHINE OPERATOR.STEEL WHEEL ENGRAVER Work Phone: Neurology Comment on above: Refill Request Start: 12-24-2024 End: 12-24-2024 ambulatory ERMIAS LOCKWOOD Facility:[facility] Start: 12-24-2024 End: 12-24-2024 Patient encounter procedure Ceasar Bonilla GLASS ROLLING MACHINE OPERATOR.EDITH Work Phone: [facility] Comment on above: Flu-like symptoms (P rimary Dx) Start: 12-23-2024 End: 12-23-2024 ambulatory Cristhian Frye GLASS ROLLING MACHINE OPERATOR.CNMelchor Work Phone: OB/Gynecology Comment on above: Work note Start: 12-22-2024 End: 12-22-2024 ambulatory SELF Facility:[facility] Start: 12-22-2024 End: 12-22-2024 Patient encounter procedure Cristhian Frye APRN.CNMelchor Work Phone: OB/Gynecology Comment on above: Encounter for gyneco logical examination (general) (routine) without abnormal findings (Primary Dx); Vaginal discharge Start: 12-22-2024 End: 12-22-2024 Patient encounter status Cristhian Frye GLASS ROLLING MACHINE OPERATOR.CNMelchor Work Phone: [facility] Start: 12-18-2024 End: 12-18-2024 [facility] Facility:[facility] Start: 12-18-2024 End: 12-18-2024 [facility] GLASS ROLLING MACHINE OPERATOR.STEEL WHEEL ENGRAVER Work Phone: Neurology Comment on above: Insomnia, unspecifie d type (Primary Dx); Hypersomnia; Excessive daytime sleepiness; Fatigue, unspecified type; Inadequate sleep hygiene; Sleep disturbance; Obesity (BMI 30-39.9); EARLENE (obstructive sleep apnea); RLS (restless legs syndrome); Depression, unspecified depression type; Anxiety; PTSD (post-traumatic stress disorder); Nightmares associated with chronic post-traumatic stress disorder; Current smoker; Marijuana use Start: 12-18-2024 End: 12-18-2024 Telephone encounter Javier Reyes Work Phone: Neurology Comment on above: Orders (Genesight or dered) Start: 12-12-2024 End: 02-11-2025 Refill Edith Salguero PA-C Work Phone: [facility] [place] Comment on above: Refill Request Follow up Marisa heaton Start: 12-11-2024 End: 12-11-2024 ambulatory ERMIAS LOCKWOOD Facility:[facility] Start: 12-11-2024 End: 12-11-2024 Patient encounter procedure Michelle SMITH Work Phone: [facility] Comment on above: Vaginal discharge (P rimary Dx); Dysuria Start: 12-03-2024 End: 12-03-2024 Patient encounter procedure Minna Diez APRN.CNP Work Phone: Neurology Comment on above: Chronic insomnia (Pr imary Dx); RLS (restless legs syndrome) Start: 12-03-2024 End: 12-03-2024 ambulatory SELF Facility:[facility] Start: 11-27-2024 End: 11-27-2024 ambulatory Nela Noel APRN.CNP Work Phone: Pain Management Comment on above: Discogenic thoracic pain (Primary Dx); Spinal stenosis of lumbar region, unspecified whether neurogenic claudication present; Muscle spasm of back; Spinal stenosis of thoracic region Start: 11-27-2024 End: 11-27-2024 Telemedicine consultation with patient Nela Noel APRN.CNP Work Phone: Pain Management Start: 11-26-2024 End: 11-27-2024 Refill eNla Noel APRN.CNP Work Phone: Pain Management Comment on above: Refill Request Marisa Santa Start: 11-18-2024 End: 11-18-2024 Orders Only Marisa Damon PA-C Work Phone: [facility] Start: 11-17-2024 End: 11-[facility]20[facility] Facility:[facility] Start: 11-17-2024 End: 11-17-2024 Office outpatient visit 15 minutes Ermias Thomas APRN.STEEL WHEEL ENGRAVER Work Phone: [facility] Comment on above: Urinary frequency (P rimary Dx); Vaginal discharge Start: 11-08-2024 End: 11-10-2024 Telephone encounter Ermias Lockwood MD Work Phone: [facility] Comment on above: Results Start: 11-07-2024 End: 11-07-2024 [facility] Facility:[facility] Start: 11-07-2024 End: 11-07-2024 Patient encounter procedure Ermias Lockwood MD Work Phone: [facility] Comment on above: Non-recurrent acute serous otitis media of left ear (Primary Dx); Viral gastroenteritis; Viral illness Start: 10-10-2024 End: 10-13-2024 Refill Adalid Strauss APRN.STEEL WHEEL ENGRAVER Work Phone: [facility] Comment on above: Refill Request Start: 10-07-2024 End: 10-07-2024 [facility] Facility:[facility] Start: 10-07-2024 End: 10-07-2024 Patient encounter procedure Shiloh Putnam PA-C Work Phone: [facility] Comment on above: Viral illness (Prima ry Dx) Start: 09-23-2024 End: 09-23-2024 Patient encounter procedure Franchesca Alarcon APRN.STEEL WHEEL ENGRAVER Work Phone: [facility] Comment on above: Diarrhea, unspecifie d type (Primary Dx); Withdrawal complaint; Nausea and vomiting, unspecified vomiting type Start: 09-23-2024 End: 09-23-2024 [facility] Facility:[facility] Start: 09-16-2024 End: 09-16-2024 Refill Franchesca Alarcon APRN.STEEL WHEEL ENGRAVER Work Phone: [facility] Comment on above: Refill Request Start: 09-08-2024 End: 09-08-2024 Refill Ermias Lockwood MD Work Phone: [facility] Comment on above: Refill Request Start: 09-02-2024 End: 09-02-2024 Telephone encounter Nela Melchor Mary Ann HEATH.STEEL WHEEL ENGRAVER Work Phone: Pain Management Comment on above: Orders Start: 08-28-2024 End: 08-28-2024 ambulatory Nela Noel APRN.STEEL WHEEL ENGRAVER Work Phone: Pain Management Comment on above: Spinal stenosis of l umbar region, unspecified whether neurogenic claudication present (Primary Dx); Discogenic thoracic pain; Muscle spasm of back; Spinal stenosis of thoracic region; Dorsalgia Start: 08-28-2024 End: 08-28-2024 Telemedicine consultation with patient Nela Reissanjeev HEATH.STEEL WHEEL ENGRAVER Work Phone: Pain Management Start: 08-25-2024 End: 08-25-2024 ambulatory Franchesca Alarcon APRN.STEEL WHEEL ENGRAVER Work Phone: [facility] Comment on above: In need of excuses f or work. Start: 08-22-2024 End: 08-22-2024 Refill Cate Pringle APRN.CNP Work Phone: [facility] Comment on above: Refill Request Start: 08-21-2024 End: 08-22-2024 Telephone encounter Franchesca Alarcon APRN.STEEL WHEEL ENGRAVER Work Phone: [facility] Comment on above: Results Start: 08-20-2024 End: 08-20-2024 Subsequent hospital visit by physician Rafaela [facility] (I-Stat) Work Phone: Cat Scan Comment on above: Nausea and vomiting, unspecified vomiting type [R11.2] Start: 08-19-2024 End: 08-19-2024 Patient encounter procedure Franchesca Alarcon APRN.EDITH Work Phone: Family Medicine [place] Comment on above: Nausea and vomiting, unspecified vomiting type (Primary Dx) Start: 08-19-2024 End: 08-19-2024 Telephone encounter Earlene Watkins APRN.STEEL WHEEL ENGRAVER Work Phone: [facility] Comment on above: Results Start: 08-18-2024 End: 08-18-2024 Patient encounter procedure Shiloh Putnam PA-C Work Phone: [facility] Comment on above: Nausea and vomiting, unspecified vomiting type (Primary Dx) Start: 07-29-2024 End: 07-29-2024 Patient encounter procedure Michelle SMITH Work Phone: [facility] Comment on above: Otalgia, left (Prima ry Dx); Diarrhea, unspecified type Start: 07-04-2024 End: 07-04-2024 Telephone encounter Michelle SMITH Work Phone: [facility] Comment on above: Results Start: 07-03-2024 End: 07-03-2024 Patient encounter procedure Earlene Watkins APRN.STEEL WHEEL ENGRAVER Work Phone: [facility] Comment on above: Sore throat (Primary Dx); URI, acute Start: 06-24-2024 End: 06-24-2024 ambulatory Franchesca Alarcon APRN.STEEL WHEEL ENGRAVER Work Phone: [facility] [place] Comment on above: Marisa medication Start: 06-18-2024 End: 06-18-2024 Telephone encounter Candi Pizano APRN.STEEL WHEEL ENGRAVER Work Phone: OB/Gynecology Comment on above: Results Start: 06-17-2024 End: 06-17-2024 Patient encounter procedure Franchesca Alarcon APRN.STEEL WHEEL ENGRAVER Work Phone: [facility] [place] Comment on above: Hyperlipidemia, mixe d (Primary Dx); Amenorrhea; Obesity, Class II, BMI 35-39.9; Medication management; Screening for diabetes mellitus Start: 06-12-2024 ambulatory Nela Noel APRN.STEEL WHEEL ENGRAVER Work Phone: Pain Management Comment on above: Request to go back t o medication Start: 05-29-2024 Chart abstracting Ermias carreon MD Work Phone: [facility] Comment on above: ER Discharge Summary Start: 05-05-2024 End: 05-05-2024 Patient encounter procedure Shiloh Gant DO Work Phone: Gynecology Comment on above: Chronic pelvic pain in female (Primary Dx) Start: 04-18-2024 ambulatory Ermias hanley MD Work Phone: [facility] Comment on above: Need excuse extended Start: 04-17-2024 Telephone encounter Ermias Lockwood MD Work Phone: [facility] Comment on above: Results Start: 04-16-2024 End: 04-16-2024 Patient encounter procedure Ermias Lockwood MD Work Phone: [facility] Comment on above: Bacterial URI (Prima ry Dx); Viral illness Start: 04-14-2024 End: 04-14-2024 Patient encounter procedure Avila Gant KUMAR.STEEL WHEEL ENGRAVER Work Phone: [facility] Comment on above: Sinobronchitis (Prim halie Dx) Start: 04-10-2024 End: 04-10-2024 Telemedicine consultation with patient Candi Pizano KUMAR.STEEL WHEEL ENGRAVER Work Phone: OB/Gynecology Start: 04-10-2024 End: 07-10-2024 ambulatory Candi Pizano KUMAR.STEEL WHEEL ENGRAVER Work Phone: OB/Gynecology Comment on above: Secondary amenorrhea (Primary Dx); Hyperprolactinemia (HCC); Nipple discharge; History of menorrhagia Start: 04-07-2024 Refill Nela Noel APRN.STEEL WHEEL ENGRAVER Work Phone: Pain Management Comment on above: Refill Request Start: 04-04-2024 End: 04-04-2024 Subsequent hospital visit by physician Susan [facility] [place] Work Phone: Radiology Comment on above: Acute cough [R05.1] Start: 04-04-2024 End: 04-04-2024 Patient encounter procedure Michelle SMITH Work Phone: [facility] Comment on above: Acute cough (Primary Dx) Start: 04-02-2024 ambulatory Candi LEONG RN.STEEL WHEEL ENGRAVER Work Phone: OB/Gynecology Comment on above: Breast Imaging Start: 04-02-2024 E-mail encounter anai m caregiver Candi Pizano APRN.STEEL WHEEL ENGRAVER Work Phone: OB/Gynecology Start: 04-01-2024 Telephone encounter Franchesca martinez APRN.STEEL WHEEL ENGRAVER Work Phone: [facility] [place] Start: 04-01-2024 End: 04-01-2024 Subsequent hospital visit by physician [facility] Work Phone: Radiology Comment on above: Secondary amenorrhea [N91.1] Nipple discharge [N6 4.52] Start: 03-19-2024 Telephone encounter Franchesca martinez APRN.STEEL WHEEL ENGRAVER Work Phone: [facility] Comment on above: Results, Lab Start: 03-14-2024 End: 03-14-2024 Patient encounter procedure Franchesca Alarcon APRN.STEEL WHEEL ENGRAVER Work Phone: [facility] [place] Comment on above: Primary insomnia (Pr imary Dx); Low libido; Hyperlipidemia, mixed; Abnormal menstrual periods Start: 03-03-2024 End: 03-03-2024 Patient encounter procedure Candi Pizano APRN.STEEL WHEEL ENGRAVER Work Phone: OB/Gynecology Comment on above: Secondary amenorrhea (Primary Dx); Nipple discharge Start: 01-19-2024 End: 01-19-2024 Patient encounter procedure Ermias Lockwood MD Work Phone: [facility] [place] Comment on above: Epigastric pain (Mary adair Dx); Nausea and vomiting, unspecified vomiting type Start: 01-14-2024 Telephone encounter Sunny sandhu MD Work Phone: Pain Management Comment on above: Medication Refill (B aclofen) Start: 01-10-2024 End: 01-10-2024 ambulatory Javier Reyes DO Work Phone: Neurology Comment on above: RLS (restless legs s yndrome) (Primary Dx) Start: 01-10-2024 End: 01-10-2024 Telemedicine consultation with patient Javier Reyes DO Work Phone: [facility] Start: 01-09-2024 Telephone encounter Michelle SMITH Work Phone: [facility] Comment on above: Results Start: 01-08-2024 End: 01-08-2024 Patient encounter procedure Michelle SMITH Work Phone: [facility] Comment on above: URI, acute (Primary Dx); Sore throat Start: 01-03-2024 Chart abstracting Ermias carreon MD Work Phone: [facility] [place] Comment on above: outside ED Start: 12-21-2023 End: 12-21-2023 Patient encounter procedure Franchesca Alarcon APRN.STEEL WHEEL ENGRAVER Work Phone: [facility] [place] Comment on above: Nausea and vomiting, unspecified vomiting type (Primary Dx); Gastroesophageal reflux disease with esophagitis without hemorrhage Start: 12-17-2023 End: 12-17-2023 Emergency department patient visit LELIA EDWARDS Facility:[facility] Start: 12-17-2023 End: 12-17-2023 Emergency department patient visit LELIA EDWARDS MD [facility] Start: 12-14-2023 Telephone encounter Franchesca martinez APRN.STEEL WHEEL ENGRAVER Work Phone: [facility] [place] Comment on above: Results Start: 12-10-2023 End: 12-10-2023 Subsequent hospital visit by physician [facility] Work Phone: Radiology Comment on above: Nausea and vomiting, unspecified vomiting type [R11.2] Start: 11-29-2023 Telephone encounter Franchesca martinez APRN.STEEL WHEEL ENGRAVER Work Phone: [facility] Comment on above: Results Start: 10-30-2023 End: 10-30-2023 Subsequent hospital visit by physician Xr [facility] [place] Work Phone: Radiology Comment on above: Acute cough [R05.1] Start: 10-24-2023 End: 10-24-2023 Subsequent hospital visit by physician Xr [facility] Work Phone: Radiology Comment on above: Bronchitis [J40] Start: 08-09-2023 End: 08-09-2023 Patient encounter procedure Steven Leonard MD Work Phone: [facility] Comment on above: Burning with urinati on (Primary Dx) Start: 08-03-2023 Refill Sunny Sarkar MD Work Phone: Pain Management Comment on above: Refill Request Start: 07-13-2023 End: 07-13-2023 ambulatory Anna Tompkins KUMAR.STEEL WHEEL ENGRAVER Work Phone: Neurology Comment on above: EARLENE on CPAP (Primary Dx); Chronic insomnia; RLS (restless legs syndrome) Start: 07-13-2023 End: 07-13-2023 Telemedicine consultation with patient Anna Tompkins KUMAR.STEEL WHEEL ENGRAVER Work Phone: [facility] Start: 07-05-2023 Refill Addie whitehead PA-C Work Phone: Neurology Comment on above: Refill Request Start: 06-25-2023 Chart abstracting Ermias carreon MD Work Phone: [facility] Comment on above: Outside [id number] Ordered Start: 06-21-2023 Chart abstracting Ermias carreon MD Work Phone: [facility] Comment on above: Results, Lab Start: 06-12-2023 Refill [facility] guillory Work Phone: Neurology Comment on above: Refill Request Start: 04-12-2023 End: 04-12-2023 Subsequent hospital visit by physician [facility] Work Phone: Radiology Comment on above: DUB (dysfunctional u terine bleeding) [N93.8] Start: 04-12-2023 End: 04-12-2023 Patient encounter procedure Asif Mcfarland MD Work Phone: OB/Gynecology Comment on above: DUB (dysfunctional u terine bleeding) (Primary Dx); Special screening examination for human papillomavirus (HPV); Encounter for screening for malignant neoplasm of cervix; History of endometriosis; Excessive bleeding in premenopausal period; Dysmenorrhea Start: 03-07-2023 ambulatory Irwin staples APRN.STEEL WHEEL ENGRAVER Work Phone: Neurology Comment on above: Reschedule/Cancellat ion Irwin De Los Santos Start: 03-07-2023 E-mail encounter fro m caregiver Irwin De Los Santos APRN.STEEL WHEEL ENGRAVER Work Phone: [facility] Start: 03-06-2023 End: 03-06-2023 ambulatory Nela Noel KUMAR.STEEL WHEEL ENGRAVER Work Phone: Pain Management Comment on above: Spinal stenosis of l umbar region, unspecified whether neurogenic claudication present (Primary Dx); Muscle spasm of back; Dorsalgia; Spinal stenosis of thoracic region Start: 03-06-2023 End: 03-06-2023 Telemedicine consultation with patient Nela Noel KUMAR.STEEL WHEEL ENGRAVER Work Phone: [facility] Start: 02-22-2023 Telephone encounter Avila monae APRN.STEEL WHEEL ENGRAVER Work Phone: [facility] Comment on above: Results Start: 02-20-2023 End: 02-20-2023 [facility] Spring Arambula APRN.STEEL WHEEL ENGRAVER Work Phone: Neurology Comment on above: Obstructive sleep ap constanza (Primary Dx); RLS (restless legs syndrome); Chronic insomnia; Bipolar affective disorder, remission status unspecified (HCC); Malaise and fatigue; Fibromyalgia; Depression, unspecified depression type; Nightmares associated with chronic post-traumatic stress disorder Urinary frequency (P rimary Dx); Burning with urination; Vaginal discharge Start: 02-02-2023 Telephone encounter Ermias Lockwood MD Work Phone: [facility] Comment on above: Results Start: 02-02-2023 End: 02-02-2023 Subsequent hospital visit by physician Rafaela [facility] ([facility]-Stat) Work Phone: Cat Scan Comment on above: RUQ pain [R10.11] Start: 02-02-2023 End: 02-02-2023 Patient encounter procedure Ermias Lockwood MD Work Phone: [facility] Comment on above: Hyperlipidemia, mixe d (Primary Dx); Gastroesophageal reflux disease with esophagitis without hemorrhage; Chronic constipation; Mild intermittent extrinsic asthma without complication; Generalized headache; RLS (restless legs syndrome); Fibromyalgia; Drug abuse ([facility]); History of heroin abuse ([facility]); Psychophysiological insomnia; Bipolar affective disorder, remission status unspecified ([facility]); PTSD (post-traumatic stress disorder); Depression, unspecified depression type; Anxiety; Attention deficit disorder, unspecified hyperactivity presence; Nightmares; RUQ pain; Gross hematuria; Amenorrhea; LLQ pain Start: 01-10-2023 Telephone encounter Anna Tompkins APRN.STEEL WHEEL ENGRAVER Work Phone: Neurology Comment on above: mask issues Patient Update Start: 01-05-2023 End: 01-05-2023 [facility] Anna Turner HEATH.STEEL WHEEL ENGRAVER Work Phone: Neurology Comment on above: Obstructive sleep ap constanza (Primary Dx); RLS (restless legs syndrome); Chronic insomnia; Excessive daytime sleepiness; Malaise and fatigue; Bipolar affective disorder, remission status unspecified ([facility]); PTSD (post-traumatic stress disorder); Depression, unspecified depression type Start: 01-02-2023 Telephone encounter Ermias Lockwood MD Work Phone: [facility] Comment on above: Results Start: 01-01-2023 End: 01-01-2023 Subsequent hospital visit by physician Susan [facility] [place] Work Phone: Radiology Comment on above: Bloated abdomen [R14 .0] Start: 01-01-2023 End: 01-01-2023 Patient encounter procedure Ermias Lockwood MD Work Phone: [facility] [place] Comment on above: Gastroesophageal ref lux disease with esophagitis without hemorrhage (Primary Dx); Epigastric pain; Bloated abdomen; Acute constipation; Generalized abdominal pain Start: 12-18-2022 Refill Irwin staples APRN.STEEL WHEEL ENGRAVER Work Phone: Neurology Comment on above: Refill Request Start: 11-16-2022 End: 11-16-2022 Patient encounter procedure Ceasar Bonilla APRN.STEEL WHEEL ENGRAVER Work Phone: [facility] Comment on above: Trapezius muscle str ain, right, initial encounter (Primary Dx) Start: 10-12-2022 End: 10-12-2022 Patient encounter procedure Daily Seth APRN.STEEL WHEEL ENGRAVER Work Phone: OB/Gynecology Comment on above: Menorrhagia with reg ular cycle (Primary Dx); Dysmenorrhea; Encounter for prescription for nuvaring; Ethan glabrata infection Start: 10-10-2022 Chart abstracting [facility] Work Phone: Neurology Comment on above: CMN Start: 09-25-2022 Refill Sunny Sarkar MD Work Phone: Pain Management Comment on above: Refill Request Start: 09-20-2022 Telephone encounter Becky Stewartadan HEATH.STEEL WHEEL ENGRAVER Work Phone: [facility] Comment on above: Results, Lab Results Start: 09-19-2022 End: 09-19-2022 Patient encounter procedure Shiloh Putnam PA-C Work Phone: [facility] Comment on above: Urinary frequency (P rimary Dx); Dysuria Start: 08-07-2022 Telephone encounter Edith balderas PA-C Work Phone: [facility] [place] Comment on above: Results Start: 08-04-2022 End: 08-04-2022 Patient encounter procedure Edith Salguero PA-C Work Phone: [facility] [place] Comment on above: Well adult exam (Mary adair Dx); History of heroin abuse (HCC); Drug abuse (HCC); Bipolar affective disorder, remission status unspecified (HCC); PTSD (post-traumatic stress disorder); Depression, unspecified depression type; Gastroesophageal reflux disease with esophagitis without hemorrhage; EARLENE (obstructive sleep apnea); Mild intermittent extrinsic asthma without complication; Hyperlipidemia, mixed; RLS (restless legs syndrome); Fibromyalgia; Low vitamin B12 level; Need for vaccination Start: 08-04-2022 End: 08-04-2022 Patient encounter status Edith Salguero PA-C Work Phone: [facility] Start: 07-21-2022 End: 07-21-2022 Patient encounter procedure Earlene Watkins GLASS ROLLING MACHINE OPERATOR.STEEL WHEEL ENGRAVER Work Phone: [facility] Comment on above: Acute otitis media, left (Primary Dx) Start: 07-17-2022 End: 07-17-2022 Patient encounter procedure Avila Gant APRN.STEEL WHEEL ENGRAVER Work Phone: [facility] Comment on above: Sinobronchitis (Prim halie Dx); Acute otitis media, left Start: 07-13-2022 Refill Sunny Sarkar MD Work Phone: Pain Management Comment on above: Refill Request Start: 07-12-2022 End: 07-12-2022 ambulatory Adalid Strauss APRN.STEEL WHEEL ENGRAVER Work Phone: Neurology Comment on above: Obstructive sleep ap constanza (Primary Dx); RLS (restless legs syndrome); Chronic insomnia Start: 07-12-2022 End: 07-12-2022 Telemedicine consultation with patient Adalid Espanarichiida KUMAR.STEEL WHEEL ENGRAVER Work Phone: [facility] Start: 07-11-2022 End: 07-11-2022 Patient encounter procedure Rosalind Mcclellan APRN.STEEL WHEEL ENGRAVER Work Phone: [facility] Comment on above: Sore throat (Primary Dx); Close exposure to COVID-19 virus Start: 07-04-2022 Telephone encounter Adalid drake APRN.CNP Work Phone: Neurology Comment on above: Compliance Adherence Start: 06-01-2022 End: 06-01-2022 [facility] Javier Reyes DO Work Phone: Neurology Comment on above: EARLENE (obstructive sle ep apnea) (Primary Dx); RLS (restless legs syndrome); Chronic insomnia; Excessive daytime sleepiness; Fibromyalgia; Gastroesophageal reflux disease with esophagitis without hemorrhage; Chronic bilateral low back pain without sciatica; Deficiency anemia; Neuropathy; Nightmares associated with chronic post-traumatic stress disorder; History of seizures Start: 05-18-2022 ambulatory Irwin McLbrittney staples GLASS ROLLING MACHINE OPERATOR.STEEL WHEEL ENGRAVER Work Phone: Neurology Comment on above: Medication Start: 05-18-2022 Telephone encounter [facility] Work Phone: Neurology Comment on above: PAP Therapy Follow U p Start: 05-12-2022 ambulatory Irwin Thornton bel GLASS ROLLING MACHINE OPERATOR.STEEL WHEEL ENGRAVER Work Phone: Neurology Comment on above: Marisa Walter Start: 05-04-2022 Telephone encounter [facility] Work Phone: Neurology Comment on above: PAP Therapy Follow U p Start: 04-27-2022 End: 04-27-2022 ambulatory Irwin Steelaughlin GLASS ROLLING MACHINE OPERATOR.STEEL WHEEL ENGRAVER Work Phone: Neurology Comment on above: EARLENE (obstructive sle ep apnea) (Primary Dx); RLS (restless legs syndrome); Fibromyalgia; Neuropathy Start: 04-27-2022 End: 04-27-2022 Telemedicine consultation with patient Irwin De Los Santos KUMAR.STEEL WHEEL ENGRAVER Work Phone: [facility] Start: 04-27-2022 Telephone encounter Irwin Maria GLASS ROLLING MACHINE OPERATOR.STEEL WHEEL ENGRAVER Work Phone: Neurology Comment on above: PAP Therapy Follow U p Start: 04-12-2022 End: 04-12-2022 [facility] Spring Arambula GLASS ROLLING MACHINE OPERATOR.STEEL WHEEL ENGRAVER Work Phone: Sleep Disorders Comment on above: EARLENE (obstructive sle ep apnea) (Primary Dx); Excessive daytime sleepiness; Fatigue, unspecified type; Fibromyalgia; RLS (restless legs syndrome); Deficiency anemia; Nightmares associated with chronic post-traumatic stress disorder; Insomnia, unspecified type Start: 04-05-2022 Telephone encounter Spring Patel APRN.STEEL WHEEL ENGRAVER Work Phone: Neurology Comment on above: PAP Therapy Follow U p Start: 03-14-2022 Refill Sunny Sarkar MD Work Phone: Neurology Comment on above: Refill Request Start: 03-10-2022 Telephone encounter [facility] Work Phone: Neurology Comment on above: PAP Rx Faxed Start: 03-08-2022 End: 03-08-2022 ambulatory Spring Aramblua APRN.STEEL WHEEL ENGRAVER Work Phone: Sleep Disorders Comment on above: EARLENE (obstructive sle ep apnea) (Primary Dx) Start: 03-08-2022 End: 03-08-2022 Telemedicine consultation with patient Spring Arambula APRN.STEEL WHEEL ENGRAVER Work Phone: [facility] Start: 10-27-2021 Telephone encounter Sunny sandhu MD Work Phone: Anesthesia [facility] Comment on above: Medication Question Start: 07-12-2021 End: 07-12-2021 Subsequent hospital visit by physician Xr [facility] [place] Work Phone: Radiology Comment on above: Bilateral thoracic b ack pain, unspecified chronicity [M54.6] Start: 03-11-2021 End: 03-11-2021 Subsequent hospital visit by physician Xr [facility] [place] Work Phone: Radiology Comment on above: Acute pain of right knee [M25.561] Start: 12-16-2020 End: 12-16-2020 Orders Only Lucy Navarrete Work Phone: [facility] Start: 07-17-2019 End: 07-18-2019 Emergency department patient visit FABIAN JARVIS [facility] Start: 07-09-2019 End: 07-09-2019 Emergency department patient visit FACUNDO WOODRUFF [facility] Start: 05-19-2019 End: 05-19-2019 [facility] Start: 04-29-2019 End: 04-29-2019 Emergency department patient visit VANI HOROWITZ [facility] Start: 06-21-2018 End: 06-25-2018 Patient encounter ELLA Conley [facility] Start: 04-16-2018 End: 04-16-2018 Patient encounter ELLA Conley [facility] Start: 03-20-2018 End: 03-20-2018 Patient encounter ELLA Conley [facility] Start: 03-06-2018 End: 03-06-2018 Patient encounter ELLA Conley [facility] Start: 02-27-2018 End: 02-27-2018 Patient encounter ELLA Conley [facility] Start: 02-21-2018 End: 02-21-2018 Patient encounter ELLA Conley [facility] Start: 02-19-2018 Patient encounter ELLA Conley [facility] Start: 11-30-2017 Emergency department patient visit Ermias Lockwood [facility] Procedures Date Procedure Procedure Detail Performing Clinician Start: 05-15-2025 COVID & INFLUENZA A/ B & RSV PCR, ROUTINE Ermias Lockwood MD Work Phone: Start: 05-15-2025 Iadna streptococcus group a amplified probe tq Ermias Lockwood MD Work Phone: Start: 12-24-2024 INFLUENZA A&B MOLECU LAR (POC) Ceasar Bonilla APRN.STEEL WHEEL ENGRAVER Work Phone: Start: 12-11-2024 Urnls dip stick/tabl et rgnt auto w/o microscopy Michelle SMITH Work Phone: Start: 11-17-2024 Urnls dip stick/tabl et rgnt auto w/o microscopy Ceasar Bonilla APRN.STEEL WHEEL ENGRAVER Work Phone: Start: 11-07-2024 COVID & INFLUENZA A/ B & RSV PCR, ROUTINE Ermias Lockwood MD Work Phone: Start: 10-07-2024 STREP A MOLECULAR (POC) Shiloh Putnam PA-C Work Phone: Start: 08-20-2024 Ct abdomen & pelvis w/contrast material Franchesca Alarcon APRN.STEEL WHEEL ENGRAVER Work Phone: Start: 07-03-2024 STREP A MOLECULAR (POC) Rosalind Mcclellan APRN.STEEL WHEEL ENGRAVER Work Phone: Start: 04-04-2024 Radiologic exam ches t 2 views Michelle SMITH Work Phone: Start: 04-01-2024 Us breast uni real t kai with image limited Candi Merazbrandon HEATH.STEEL WHEEL ENGRAVER Work Phone: Start: 04-01-2024 Digital breast tomos ynthesis bilateral Candi Harinder HEATH.STEEL WHEEL ENGRAVER Work Phone: Start: 01-08-2024 COVID & INFLUENZA A/ B & RSV NAAT, ROUTINE Michelle SMITH Work Phone: Start: 01-08-2024 STREP A MOLECULAR (POC) [facility] Provider Start: 12-10-2023 Us abdominal real ti me w/image limited Franchesca Alarcon APRN.STEEL WHEEL ENGRAVER Work Phone: Start: 10-30-2023 Radiologic exam ches t 2 views Anahi Walters PA-C Work Phone: Start: 10-24-2023 Radiologic exam ches t 2 views Shiloh Putnam PA-C Work Phone: Start: 08-09-2023 Urnls dip stick/tabl et rgnt auto w/o microscopy Rosalind Mcclellan APRN.STEEL WHEEL ENGRAVER Work Phone: Start: 04-12-2023 Us transvaginal Asif gee MD Work Phone: Start: 02-20-2023 Urnls dip stick/tabl et rgnt auto w/o microscopy Shiloh Putnam PA-C Work Phone: Start: 02-02-2023 Ct abdomen & pelvis w/contrast material Ermias Lockwood MD Work Phone: Start: 02-02-2023 Urnls dip stick/tabl et rgnt auto w/o microscopy Ermias Lockwood MD Work Phone: Start: 01-01-2023 Radiologic exam abdo men 1 view Ermias Lockwood MD Work Phone: Start: 09-19-2022 Urnls dip stick/tabl et rgnt auto w/o microscopy Ermias Thomas GLASS ROLLING MACHINE OPERATOR.STEEL WHEEL ENGRAVER Work Phone: Start: 07-11-2022 STREP A MOLECULAR (POC) Rosalind Mcclellan GLASS ROLLING MACHINE OPERATOR.STEEL WHEEL ENGRAVER Work Phone: Start: 07-12-2021 Radex spine thoracic 3 views Edith SMITH-C Work Phone: Start: 03-11-2021 Radiologic exam knee complete 4/more views Anahi Walters PA-C Work Phone: Start: 07-18-2019 Urinalysis VANI TEJEDA Comment on above: Result Comment: URIN ALYSIS Performed By: #### [id number] #### [place] [id number] Start: 07-09-2019 Urinalysis VANI TEJEDA Comment on above: Result Comment: URIN ALYSIS Performed By: #### [id number] #### [place] [address] Start: 05-19-2019 Urinalysis VANI TEJEDA Comment on above: Result Comment: URIN ALYSIS Performed By: #### [id number] #### [place] [address] Cholecystectomy LELIA HERNANDEZ MD Dilation and curetta ge of uterus LELIA EDWARDS MD Ligation of fallopian tube Adan EDWARDS MD Tooth extraction LELIA ENCINAS MD Plan of Treatment Date Care Activity Detail Author Start: 02-04-2035 Urine microalbumin profile DTaP,Tdap,Td Vaccine (4 - Td or Tdap) [facility] Start: 04-12-2028 HPV TESTING HPV TESTING [facility] Start: 04-12-2028 PAP TESTING PAP TESTING [facility] Start: 04-12-2028 Screening for malignant neoplasm of cervix [facility] Start: 11-06-2027 Urine microalbumin profile DTaP,Tdap,Td Vaccine (3 - Td or Tdap) [facility] Start: 04-06-2027 HPV TESTING HPV TESTING [facility] Start: 04-06-2027 PAP TESTING PAP TESTING [facility] Start: 05-15-2026 Annual PCP Team Chronic Disease Visit Annual PCP Team Chronic Disease Visit [facility] Start: 03-29-2026 End: 03-29-2026 Patient encounter procedure 03/29/2026 1:20 PM EDT Office Visit [facility] [place] [address] [place] [address] Edith Salguero PA-C [address] [place] [address] physical [facility] [place] Comment on above: physical Start: 03-27-2026 Annual PCP Team Chronic Disease Visit Annual PCP Team Chronic Disease Visit [facility] Start: 03-27-2026 Covid-19 Vaccine ( season) Covid-19 Vaccine () [facility] Comment on above: Postponed from 06/29 (Declined at this time) Start: 12-23-2025 End: 12-23-2025 Patient encounter procedure 12/23/2025 4:00 PM EST Office Visit OB/Gynecology [address] [place] [address] Cristhian Frye APRN.CN [address] [place] [address] Annual OB/Gynecology Comment on above: Annual Start: 11-07-2025 Annual PCP Team Chronic Disease Visit Annual PCP Team Chronic Disease Visit [facility] Start: 09-23-2025 Annual PCP Team Chronic Disease Visit Annual PCP Team Chronic Disease Visit [facility] Start: 08-19-2025 Annual PCP Team Chronic Disease Visit Annual PCP Team Chronic Disease Visit [facility] Start: 07-01-2025 End: 07-01-2025 ambulatory 07/01/2025 7:30 AM EDT [facility] Neurology [address] [place] [address] Irwin Blount, GLASS ROLLING MACHINE OPERATOR.STEEL WHEEL ENGRAVER [address] [place] [address] Medication check Neurology Comment on above: Medication check Start: 06-29-2025 Influenza vaccination [facility] Start: 06-17-2025 Annual PCP Team Chronic Disease Visit Annual PCP Team Chronic Disease Visit [facility] Start: 06-16-2025 End: 06-16-2025 Follow-up encounter 06/16/2025 2:40 PM EDT [facility] Neurology [address] [place] [address] Javier Reyes, [address] [place] [address] follow up for sleep apnea Neurology Comment on above: follow up for sleep apnea Start: 05-21-2025 Tetanus vaccination Tetanus: Every 1 0yrs [facility] Start: 05-21-2025 Urine microalbumin profile [facility] Start: 05-15-2025 End: 05-15-2025 ambulatory 05/15/2025 1:00 PM EDT [facility] Neurology [address] [place] [address] Irwin Blount, GLASS ROLLING MACHINE OPERATOR.STEEL WHEEL ENGRAVER [address] [place] [address] Medication check add on Per Tete Harrington TT Neurology Comment on above: Medication check add on Per Tete LAI Start: 05-14-2025 End: 05-14-2025 Patient encounter procedure 05/14/2025 10:30 AM EDT Office Visit Neurology [address] [place] [address] Minna Diez, GLASS ROLLING MACHINE OPERATOR.STEEL WHEEL ENGRAVER [address] [place] [address] Check in with medication Neurology Comment on above: Check in with medica tion Start: 05-08-2025 End: 05-08-2025 ambulatory 05/08/2025 1:00 PM EDT [facility] Neurology [address] [place] [address] Irwin Blount APRN.STEEL WHEEL ENGRAVER [address] [place] [address] Medication check add on Per Tete Harrington TT Neurology Comment on above: Medication check add on Per Tete LAI Start: 05-07-2025 End: 05-07-2025 Patient encounter procedure 05/07/2025 6:40 PM EDT Office Visit [facility] [address] [place] [phone] Franchesca Alarcon APRN.STEEL WHEEL ENGRAVER [address] [place] [address] Possible blood work [facility] Comment on above: Possible blood work Start: 04-27-2025 Influenza vaccination Influenza Vacc ine (#1) [facility] Comment on above: Postponed from 06/29 (Declined at this time) Start: 04-16-2025 Annual PCP Team Chronic Disease Visit Annual PCP Team Chronic Disease Visit [facility] Start: 03-27-2025 End: 06-26-2025 Comprehensive metabolic 2000 panel - Serum or Plasma [facility] Comment on above: Expected: 03/27/2025 , Expires: 06/26/2025 Start: 03-27-2025 End: 06-26-2025 Hemoglobin A1c in Blood [facility] Comment on above: Expected: 03/27/2025 , Expires: 06/26/2025 Start: 03-27-2025 End: 06-26-2025 Hepatitis C virus RNA [Units/volume] (viral load) in Serum or Plasma by DEBBIE with probe detection [facility] Work Phone: Comment on above: Expected: 03/27/2025 , Expires: 06/26/2025 Start: 03-27-2025 End: 06-26-2025 LIPID PANEL, NONFASTING [facility] Comment on above: Expected: 03/27/2025 , Expires: 06/26/2025 Start: 03-27-2025 End: 03-27-2025 Patient encounter procedure 03/27/2025 12:00 PM EDT Office Visit [facility] [place] [address] [place], [place] [phone] Edith Salguero PA-C [address] [place], [place] [phone] physical [facility] [place] Comment on above: physical Start: 03-14-2025 Annual PCP Team Chronic Disease Visit Annual PCP Team Chronic Disease Visit [facility] Start: 02-23-2025 End: 02-23-2025 Patient encounter procedure 02/23/2025 11:00 AM EDT Office Visit Family [facility] [address] [place] [phone] Franchesca Alarcon, GLASS ROLLING MACHINE OPERATOR.STEEL WHEEL ENGRAVER [address] [place] [phone] physical [facility] Comment on above: physical Start: 02-18-2025 End: 02-18-2025 Patient encounter procedure 02/18/2025 9:00 AM EDT [facility] Neurology [address] [place] [address] Javier Reyes, [address] [place] [address] I accidentally missed my appointment October 24 Neurology Comment on above: I accidentally misse d my appointment October 24 Start: 01-26-2025 End: 01-26-2025 Patient encounter procedure 01/26/2025 11:00 AM EDT Office Visit Family Medicine [place] [address] [place], [place] [phone] Franchesca Alarcon, GLASS ROLLING MACHINE OPERATOR.STEEL WHEEL ENGRAVER [address] [place] [address] physical [facility] Medicine [place] Comment on above: physical Start: 01-18-2025 Annual PCP Team Chronic Disease Visit Annual PCP Team Chronic Disease Visit [facility] Start: 12-22-2024 End: 12-22-2024 Patient encounter procedure 12/22/2024 2:45 PM EST Office Visit OB/Gynecology [address] [place] [address] Cristhian Frye APRN.CN [address] [place] [address] Annual OB/Gynecology Comment on above: Annual Start: 12-21-2024 Annual PCP Team Chronic Disease Visit Annual PCP Team Chronic Disease Visit [facility] Start: 12-18-2024 End: 12-18-2024 Follow-up encounter 12/18/2024 2:30 PM EST [facility] [address] [facility] [place] [address] Irwin Blount APRN.STEEL WHEEL ENGRAVER [address] ANGELA Garcia [facility] [place] [address] follow up with levi per minna diez Neurology Comment on above: follow up with haresh vigil per minna diez Start: 12-18-2024 End: 03-19-2025 CBC W Auto Differential panel - Blood COMPLETE BLOOD COUNT AND DIFFERENTIAL Lab Routine Medication management Expected: 12/18/2024, Expires: 03/19/2025 [facility] Comment on above: Expected: 12/18/2024 , Expires: 03/19/2025 Start: 12-18-2024 End: 03-19-2025 Comprehensive metabolic 2000 panel - Serum or Plasma COMPREHENSIVE METABOLIC PANEL Lab Routine Medication management Expected: 12/18/2024, Expires: 03/19/2025 [facility] Comment on above: Expected: 12/18/2024 , Expires: 03/19/2025 Start: 12-18-2024 End: 03-19-2025 Hemoglobin A1c in Blood HEMOGLOBIN A1C Lab Routine Screening for diabetes mellitus Expected: 12/18/2024, Expires: 03/19/2025 [facility] Comment on above: Expected: 12/18/2024 , Expires: 03/19/2025 Start: 12-18-2024 End: 03-19-2025 LIPID PANEL, NONFASTING LIPID PANEL, NONFASTING Lab Routine Hyperlipidemia, mixed Expected: 12/18/2024, Expires: 03/19/2025 [facility] Work Phone: Comment on above: Expected: 12/18/2024 , Expires: 03/19/2025 Start: 12-18-2024 End: 03-19-2025 Thyrotropin [Units/volume] in Serum or Plasma THYROID STIMULATING HORMONE Lab Routine Medication management Expected: 12/18/2024, Expires: 03/19/2025 [facility] Comment on above: Expected: 12/18/2024 , Expires: 03/19/2025 Start: 12-03-2024 End: 12-03-2024 Patient encounter procedure 12/03/2024 3:30 PM EST Office Visit Neurology [address] [place] [address] Minna Diez, GLASS ROLLING MACHINE OPERATOR.STEEL WHEEL ENGRAVER [address] [place] [address] follow up Neurology Comment on above: follow up Start: 11-28-2024 End: 11-28-2024 Patient encounter procedure 11/28/2024 9:00 AM EST Office Visit Neurology [address] [place] [address] Minna Diez, GLASS ROLLING MACHINE OPERATOR.STEEL WHEEL ENGRAVER [address] [place] [address] follow up Neurology Comment on above: follow up Start: 11-27-2024 Annual PCP Team Chronic Disease Visit Annual PCP Team Chronic Disease Visit [facility] Start: 11-27-2024 End: 11-27-2024 ambulatory 11/27/2024 10:00 AM EST [facility] [address] [address] Nela Noel GLASS ROLLING MACHINE OPERATOR.STEEL WHEEL ENGRAVER [address] [place] [address] Patient requesting Zoom check up Pain Management Comment on above: Patient requesting Z oom check up Start: 11-19-2024 End: 11-19-2024 Patient encounter procedure 11/19/2024 4:00 PM EST Office Visit OB/Gynecology [address] [place] [address] Cristhian Frye APRN.CN [address] [place] [address] Annual OB/Gynecology Comment on above: Annual Start: 11-12-2024 End: 11-12-2024 Patient encounter procedure 11/12/2024 3:15 PM EST Office Visit OB/Gynecology [address] [place] [address] Candi Pizano, GLASS ROLLING MACHINE OPERATOR.STEEL WHEEL ENGRAVER [address] [place] [address] Annual OB/Gynecology Comment on above: Annual Start: 10-24-2024 End: 10-24-2024 Follow-up encounter 10/24/2024 2:00 PM EST [facility] Neurology [address] [place] [address] Gi Cha APRN.STEEL WHEEL ENGRAVER [address] [place] [address] follow up Neurology Comment on above: follow up Start: 08-20-2024 End: 08-20-2024 Patient encounter procedure Cat Scan Comment on above: Nausea and vomiting, unspecified vomiting type [R11.2] Start: 08-19-2024 End: 08-19-2024 Patient encounter procedure 08/19/2024 4:00 PM EDT Office Visit [facility] [place] [address] [place] [address] Franchesca Alarcon, GLASS ROLLING MACHINE OPERATOR.STEEL WHEEL ENGRAVER [address] [place] [address] Physical / 6m follow up [facility] [place] Comment on above: Physical / 6m follow up Start: 08-18-2024 End: 11-17-2024 Lipase [Enzymatic activity/volume] in Serum or Plasma [facility] Work Phone: Comment on above: Expected: 08/18/2024 , Expires: 11/17/2024 Start: 07-22-2024 End: 07-22-2024 Patient encounter procedure 07/22/2024 4:00 PM EDT Office Visit [facility] [address] [place], [place] [address] Franchesca Alarcon APRN.STEEL WHEEL ENGRAVER [address] [place], [place] [phone] Physical / 6m follow up [facility] [place] Comment on above: Physical / 6m follow up Start: 06-29-2024 Covid-19 Vaccine ( season) Covid-19 Vaccine ( season) [facility] Start: 06-29-2024 Covid-19 Vaccine ( season) Covid-19 Vaccine ( season) [facility] Start: 06-29-2024 Influenza vaccination [facility] Start: 06-26-2024 End: 06-26-2024 ambulatory 06/26/2024 4:30 PM EDT [facility] [address] [place], [place] [phone] Candi Pizano, GLASS ROLLING MACHINE OPERATOR.STEEL WHEEL ENGRAVER [address] [place] [address] f/u OB/Gynecology Comment on above: f/u Start: 06-25-2024 End: 06-25-2024 ambulatory 06/25/2024 4:30 PM EDT [facility] [address] [place], [place] [phone] Candi Pizano, GLASS ROLLING MACHINE OPERATOR.STEEL WHEEL ENGRAVER [address] [place], [place] [phone] f/u OB/Gynecology Comment on above: f/u Start: 06-17-2024 End: 06-17-2024 Patient encounter procedure 06/17/2024 7:40 AM EDT Office Visit Family [facility] [address] [place] [address] Franchesca Alarcon APRN.STEEL WHEEL ENGRAVER [address] [place], [place] [phone] 3 month follow up [facility] Comment on above: 3 month follow up Start: 06-14-2024 End: 09-13-2024 LIPID PANEL, NONFASTING LIPID PANEL, NONFASTING Lab Routine Hyperlipidemia, mixed Expected: 06/14/2024, Expires: 09/13/2024 [facility] Comment on above: Expected: 06/14/2024 , Expires: 09/13/2024 Start: 05-05-2024 End: 05-05-2024 Patient encounter procedure 05/05/2024 9:30 AM EDT Office Visit Gynecology [address] [place] [address] Shiloh Gant, [address] [place] [address] [facility] Gynecology Comment on above: new migs Start: 04-23-2024 End: 04-23-2024 Patient encounter procedure 04/23/2024 9:30 AM EDT Office Visit Pain Management [address] [address] Nela Noel, GLASS ROLLING MACHINE OPERATOR.STEEL WHEEL ENGRAVER [address] [place] [address] Follow up Med Refills Pain Management Comment on above: Follow up Med Refill s Start: 04-10-2024 End: 07-10-2024 Prolactin [Mass/volume] in Serum or Plasma PROLACTIN Lab Routine Hyperprolactinemia (HCC) Expected: 04/10/2024, Expires: 07/10/2024 [facility] Work Phone: Comment on above: Expected: 04/10/2024 , Expires: 07/10/2024 Start: 04-01-2024 End: 04-01-2024 Patient encounter procedure Radiology Comment on above: US FEMALE PELVIS TRA NSVAG JIM DIAGNOSTIC BILAT ERAL US BREAST LTD RIGHT/ LEFT COMP FRED NIPPLE DISC HARGE Start: 03-14-2024 ANNUAL PCP TEAM CHRONIC DISEASE VISIT ANNUAL PCP TEAM CHRONIC DISEASE VISIT [facility] Start: 03-14-2024 End: 06-13-2024 Cortisol [Mass/volume] in Serum or Plasma [facility] Work Phone: Comment on above: Expected: 03/14/2024 , Expires: 06/13/2024 Start: 03-14-2024 End: 06-13-2024 Insulin [Units/volume] in Serum or Plasma [facility] Comment on above: Expected: 03/14/2024 , Expires: 06/13/2024 Start: 03-14-2024 End: 06-13-2024 TESTOSTERONE, FREE AND TOTAL [facility] Comment on above: Expected: 03/14/2024 , Expires: 06/13/2024 Start: 03-03-2024 End: 06-02-2024 CBC panel - Blood by Automated count COMPLETE BLOOD COUNT Lab Routine Secondary amenorrhea Expected: 03/03/2024, Expires: 06/02/2024 [facility] Comment on above: Expected: 03/03/2024 , Expires: 06/02/2024 Start: 03-03-2024 End: 06-02-2024 Choriogonadotropin.bet a subunit [Units/volume] in Serum or Plasma HCG QUANTITATIVE Lab Routine Secondary amenorrhea Expected: 03/03/2024, Expires: 06/02/2024 [facility] Comment on above: Expected: 03/03/2024 , Expires: 06/02/2024 Start: 03-03-2024 End: 06-02-2024 Comprehensive metabolic 2000 panel - Serum or Plasma COMPREHENSIVE METABOLIC PANEL Lab Routine Secondary amenorrhea Expected: 03/03/2024, Expires: 06/02/2024 [facility] Comment on above: Expected: 03/03/2024 , Expires: 06/02/2024 Start: 03-03-2024 End: 06-02-2024 Estradiol (E2) [Mass/volume] in Serum or Plasma ESTRADIOL-17B BLD Lab Routine Secondary amenorrhea Expected: 03/03/2024, Expires: 06/02/2024 [facility] Comment on above: Expected: 03/03/2024 , Expires: 06/02/2024 Start: 03-03-2024 End: 06-02-2024 Follitropin [Units/volume] in Serum or Plasma FOLLICLE STIMULATING HORMONE Lab Routine Secondary amenorrhea Expected: 03/03/2024, Expires: 06/02/2024 [facility] Comment on above: Expected: 03/03/2024 , Expires: 06/02/2024 Start: 03-03-2024 End: 06-02-2024 Hemoglobin A1c in Blood HEMOGLOBIN A1C Lab Routine Secondary amenorrhea Expected: 03/03/2024, Expires: 06/02/2024 [facility] Comment on above: Expected: 03/03/2024 , Expires: 06/02/2024 Start: 03-03-2024 End: 06-02-2024 LIPID PANEL, NONFASTING LIPID PANEL, NONFASTING Lab Routine Secondary amenorrhea Expected: 03/03/2024, Expires: 06/02/2024 [facility] Comment on above: Expected: 03/03/2024 , Expires: 06/02/2024 Start: 03-03-2024 End: 06-02-2024 Prolactin [Mass/volume] in Serum or Plasma PROLACTIN Lab Routine Secondary amenorrhea Expected: 03/03/2024, Expires: 06/02/2024 [facility] Comment on above: Expected: 03/03/2024 , Expires: 06/02/2024 Start: 03-03-2024 End: 06-02-2024 Thyrotropin [Units/volume] in Serum or Plasma THYROID STIMULATING HORMONE Lab Routine Secondary amenorrhea Expected: 03/03/2024, Expires: 06/02/2024 [facility] Work Phone: Comment on above: Expected: 03/03/2024 , Expires: 06/02/2024 Start: 03-03-2024 End: 06-02-2024 Thyroxine (T4) free [Mass/volume] in Serum or Plasma T4 FREE/FREE THYROXINE Lab Routine Secondary amenorrhea Expected: 03/03/2024, Expires: 06/02/2024 [facility] Comment on above: Expected: 03/03/2024 , Expires: 06/02/2024 Start: 02-03-2024 ANNUAL PCP TEAM CHRONIC DISEASE VISIT ANNUAL PCP TEAM CHRONIC DISEASE VISIT [facility] Start: 01-02-2024 ANNUAL PCP TEAM CHRONIC DISEASE VISIT ANNUAL PCP TEAM CHRONIC DISEASE VISIT [facility] Start: 08-04-2023 ANNUAL PCP TEAM CHRONIC DISEASE VISIT ANNUAL PCP TEAM CHRONIC DISEASE VISIT [facility] Start: 08-04-2023 COVID-19 VACCINE (3 - Booster for Pfizer series) COVID-19 VACCINE (3 - Booster for Pfizer series) [facility] Comment on above: Postponed from 08/19 (Declined at this time) Start: 08-04-2023 COVID-19 VACCINE (3 - Pfizer series) COVID-19 VACCINE (3 - Pfizer series) [facility] Comment on above: Postponed from 08/19 (Declined at this time) Start: 06-29-2023 Covid-19 Vaccine (2022- season) Covid-19 Vaccine ( - 2022-24 season) [facility] Start: 06-29-2023 Influenza vaccination C [facility] Start: 04-27-2023 Influenza vaccination INFLUENZA (#1) [facility] Comment on above: Postponed from 06/29 (Declined at this time) Start: 04-12-2023 End: 04-12-2024 PELVIC US WHI PELVIC US WHI Anc Imaging Routine DUB (dysfunctional uterine bleeding) Expected: 04/12/2023, Expires: 04/12/2024 [facility] Work Phone: Comment on above: Expected: 04/12/2023 , Expires: 04/12/2024 Start: 04-12-2023 End: 06-12-2023 Thyrotropin [Units/volume] in Serum or Plasma [facility] Work Phone: Comment on above: Expected: 04/12/2023 , Expires: 06/12/2023 Start: 02-02-2023 End: 04-04-2023 Amylase [Enzymatic activity/volume] in Serum or Plasma [facility] Work Phone: Comment on above: Expected: 02/02/2023 , Expires: 04/04/2023 Start: 02-02-2023 End: 04-04-2023 Hepatic function 2000 panel - Serum or Plasma [facility] Work Phone: Comment on above: Expected: 02/02/2023 , Expires: 04/04/2023 Start: 02-02-2023 End: 04-04-2023 Lipase [Enzymatic activity/volume] in Serum or Plasma [facility] Work Phone: Comment on above: Expected: 02/02/2023 , Expires: 04/04/2023 Start: 02-02-2023 End: 04-04-2023 LIPID PANEL, NONFASTING [facility] Work Phone: Comment on above: Expected: 02/02/2023 , Expires: 04/04/2023 Start: 01-10-2023 ANNUAL PCP TEAM CHRONIC DISEASE VISIT ANNUAL PCP TEAM CHRONIC DISEASE VISIT [facility] Start: 01-05-2023 End: 10-28-2023 Ferritin [Mass/volume] in Serum or Plasma FERRITIN BLD Lab Routine RLS (restless legs syndrome) Excessive daytime sleepiness Malaise and fatigue Expected: 01/05/2023 (Approximate), Expires: 10/28/2023 [facility] Work Phone: Comment on above: Expected: 01/05/2023 (Approximate), Expires: 10/28/2023 Start: 01-05-2023 End: 10-28-2023 Iron and Iron binding capacity panel - Serum or Plasma IRON + TIBC Lab Routine RLS (restless legs syndrome) Excessive daytime sleepiness Malaise and fatigue Expected: 01/05/2023 (Approximate), Expires: 10/28/2023 [facility] Work Phone: Comment on above: Expected: 01/05/2023 (Approximate), Expires: 10/28/2023 Start: 01-01-2023 End: 03-03-2023 Amylase [Enzymatic activity/volume] in Serum or Plasma [facility] Work Phone: Comment on above: Expected: 01/01/2023 , Expires: 03/03/2023 Start: 01-01-2023 End: 03-03-2023 Hepatic function 2000 panel - Serum or Plasma [facility] Work Phone: Comment on above: Expected: 01/01/2023 , Expires: 03/03/2023 Start: 01-01-2023 End: 03-03-2023 Lipase [Enzymatic activity/volume] in Serum or Plasma [facility] Work Phone: Comment on above: Expected: 01/01/2023 , Expires: 03/03/2023 Start: 09-19-2022 End: 11-19-2022 BACTERIAL VAGINOSIS AMPLIFICATION [facility] Work Phone: Comment on above: Expected: 09/19/2022 , Expires: 11/19/2022 Start: 08-04-2022 End: 10-04-2022 Basic metabolic 2000 panel - Serum or Plasma [facility] Work Phone: Comment on above: Expected: 08/04/2022 , Expires: 10/04/2022 Start: 08-04-2022 End: 10-04-2022 Cobalamin (Vitamin B12) [Mass/volume] in Serum or Plasma [facility] Work Phone: Comment on above: Expected: 08/04/2022 , Expires: 10/04/2022 Start: 08-04-2022 End: 10-04-2022 LIPID PANEL, NONFASTING [facility] Work Phone: Comment on above: Expected: 08/04/2022 , Expires: 10/04/2022 Start: 07-11-2022 End: 07-25-2022 Influenza virus A and B RNA and SARS-CoV-2 (COVID-19) N gene panel - Respiratory specimen by DEBBIE with probe detection [facility] Work Phone: Comment on above: Expected: 07/11/2022 , Expires: 07/25/2022 Start: 06-29-2022 Influenza vaccination C [facility] Start: 04-13-2022 PAP TESTING PAP TESTING [facility] Start: 04-12-2022 End: 08-15-2022 Ferritin [Mass/volume] in Serum or Plasma FERRITIN BLD Lab Routine RLS (restless legs syndrome) Deficiency anemia Expected: 04/12/2022, Expires: 06/12/2022 [facility] Work Phone: Comment on above: Expected: 04/12/2022 , Expires: 06/12/2022 Start: 04-12-2022 End: 06-12-2022 Iron and Iron binding capacity panel - Serum or Plasma IRON + TIBC Lab Routine RLS (restless legs syndrome) Deficiency anemia Expected: 04/12/2022, Expires: 06/12/2022 [facility] Work Phone: Comment on above: Expected: 04/12/2022 , Expires: 06/12/2022 Start: 11-24-2021 COVID-19 VACCINE (3 - Booster for Pfizer series) COVID-19 VACCINE (3 - Booster for Pfizer series) [facility] Start: 08-19-2021 COVID-19 VACCINE (3 - Booster for Pfizer series) COVID-19 VACCINE (3 - Booster for Pfizer series) [facility] Start: 06-29-2020 Influenza vaccinatio n given Sequential Influenza Vaccine (#1) [facility] Start: 02-02-2020 HPV TESTING HPV TESTING [facility] Start: 06-22-2018 PNEUMOCOCCAL (2 - PCV) PNEUMOCOCCAL (2 - PCV) [facility] Start: 2017 HPV Vaccine (1 - 3-dose SCDM series) HPV Vaccine (1 - 3-dose SCDM series) [facility] Start: 02-02-2008 SPIROMETRY SPIROMETRY [facility] Start: 2002 Adolescent depressio n screening assessment Depression Screening (PHQ9) [facility] Start: 1993 History and physical examination, annual for health maintenance Wellness Visit [facility] Start: 1990 Screening for malignant neoplasm of cervix Pap Smear [facility] Bacteria identified in Urine by Culture URINE CULTURE Microbiology Routine Dysuria 09/19/2022 3:40 PM EST [facility] Work Phone: Bacteria identified in Urine by Culture URINE CULTURE Microbiology Routine Urinary frequency Burning with urination 02/20/2023 4:47 PM EDT [facility] Work Phone: Bacteria identified in Urine by Culture BACTERIAL CULTURE, URINE Microbiology Routine Urinary frequency Ordered: 11/17/2024 [facility] Work Phone: Comment on above: Ordered: 11/17/2024 BACTERIAL VAGINOSIS AMPLIFICATION BACTERIAL VAGINOSIS AMPLIFICATION Lab Routine Vaginal discharge 02/20/2023 4:49 PM EDT [facility] Work Phone: BACTERIAL VAGINOSIS NAAT BACTERIAL VAGINOSIS NAAT Lab Routine Vaginal discharge Ordered: 11/17/2024 [facility] Comment on above: Ordered: 11/17/2024 BACTERIAL VAGINOSIS NAAT BACTERIAL VAGINOSIS NAAT Lab Routine Vaginal discharge Ordered: 12/11/2024 [facility] Comment on above: Ordered: 12/11/2024 BACTERIAL VAGINOSIS NAAT BACTERIAL VAGINOSIS NAAT Lab Routine Vaginal discharge 12/22/2024 3:14 PM [facility] ETHAN / TRICHOMONA S AMPLIFICATION ETHAN / TRICHOMONAS AMPLIFICATION Microbiology Routine Dysuria 09/19/2022 3:50 PM [facility] Work Phone: ETHAN / TRICHOMONA S AMPLIFICATION ETHAN / TRICHOMONAS AMPLIFICATION Microbiology Routine Vaginal discharge 02/20/2023 4:49 PM EDT [facility] Work Phone: ETHAN/TRICHOMONAS NAAT ETHAN/TRICHOMONAS NAAT Lab Routine Vaginal discharge Ordered: 11/17/2024 [facility] Comment on above: Ordered: 11/17/2024 ETHAN/TRICHOMONAS NAAT ETHAN/TRICHOMONAS NAAT Lab Routine Vaginal discharge Ordered: 12/11/2024 [facility] Work Phone: Comment on above: Ordered: 12/11/2024 ETHAN/TRICHOMONAS NAAT ETHAN/TRICHOMONAS NAAT Lab Routine Vaginal discharge 12/22/2024 3:14 PM [facility] Work Phone: Chlamydia trachomatis+Neisseria gonorrhoeae DNA [Presence] in Unspecified specimen by DEBBIE with probe detection GC/CHLAMYDIA DNA DET Lab Routine Dysuria 09/19/2022 3:49 PM EST [facility] Work Phone: Chlamydia trachomatis+Neisseria gonorrhoeae DNA [Presence] in Unspecified specimen by DEBBIE with probe detection GC/CHLAMYDIA DNA DET Lab Routine Vaginal discharge 02/20/2023 4:49 PM EDT [facility] Work Phone: Chlamydia trachomatis+Neisseria gonorrhoeae DNA [Presence] in Unspecified specimen by DEBBIE with probe detection GONORRHEA/CHLAMYDIA NAAT Lab Routine Vaginal discharge Ordered: 11/17/2024 [facility] Comment on above: Ordered: 11/17/2024 Chlamydia trachomatis+Neisseria gonorrhoeae DNA [Presence] in Unspecified specimen by DEBBIE with probe detection GONORRHEA/CHLAMYDIA NAAT Lab Routine Vaginal discharge Ordered: 12/11/2024 [facility] Comment on above: Ordered: 12/11/2024 COVID & INFLUENZA A/ B & RSV NAAT, ROUTINE COVID & INFLUENZA A/B & RSV NAAT, ROUTINE Microbiology Routine Viral illness 04/16/2024 1:29 PM EDT [facility] Work Phone: COVID & INFLUENZA A/ B & RSV PCR, ROUTINE COVID & INFLUENZA A/B & RSV PCR, ROUTINE Microbiology Routine URI, acute Ordered: 07/03/2024 [facility] Work Phone: Comment on above: Ordered: 07/03/2024 End: 09-18-2025 CT Abdomen and Pelvis W contrast IV CT ABD/PEL W IVCON Radiology STAT Nausea and vomiting, unspecified vomiting type 1 Occurrences starting 08/19/2024 until 09/18/2025 [facility] Work Phone: Comment on above: 1 Occurrences starti ng 08/19/2024 until 09/18/2025 End: 04-02-2025 MG Breast - bilateral Diagnostic JIM DIAGNOSTIC BILATERAL Radiology Routine Nipple discharge 1 Occurrences starting 03/03/2024 until 04/02/2025 [facility] Comment on above: 1 Occurrences starti ng 03/03/2024 until 04/02/2025 End: 09-27-2025 MR Lumbar spine WO contrast MRI LUMBAR SPINE WO IVCON Radiology Routine Spinal stenosis of lumbar region, unspecified whether neurogenic claudication present 1 Occurrences starting 08/28/2024 until 09/27/2025 [facility] Work Phone: Comment on above: 1 Occurrences starti ng 08/28/2024 until 09/27/2025 PAP TEST PAP TEST Lab Kevan frank Special screening examination for human papillomavirus (HPV) Encounter for screening for malignant neoplasm of cervix 04/12/2023 9:05 AM EDT [facility] Work Phone: End: 04-02-2025 US Breast - left limited US BREAST LTD LEFT Radiology Routine Nipple discharge 1 Occurrences starting 03/03/2024 until 04/02/2025 [facility] Comment on above: 1 Occurrences starti ng 03/03/2024 until 04/02/2025 End: 04-02-2025 US Breast - right limited US BREAST LTD RIGHT Radiology Routine Nipple discharge 1 Occurrences starting 03/03/2024 until 04/02/2025 [facility] Comment on above: 1 Occurrences starti ng 03/03/2024 until 04/02/2025 End: 04-02-2025 US Pelvis transvaginal US FEMALE PELVIS TRANSVAG Radiology Routine Secondary amenorrhea 1 Occurrences starting 03/03/2024 until 04/02/2025 [facility] Comment on above: 1 Occurrences starti ng 03/03/2024 until 04/02/2025 US Pelvis transvaginal US FEMALE PELVIS TRANSVAG Radiology Routine Secondary amenorrhea 04/01/2024 9:15 AM EDT [facility] Work Phone: End: 04-25-2026 US Pelvis transvaginal US FEMALE PELVIS TRANSVAG Radiology Routine Pelvic pain in female 1 Occurrences starting 03/25/2025 until 04/25/2026 [facility] Work Phone: Comment on above: 1 Occurrences starti ng 03/25/2025 until 04/25/2026 End: 05-11-2024 Us transvaginal US FEMALE PELVIS TRANSVAG Radiology Routine DUB (dysfunctional uterine bleeding) 1 Occurrences starting 04/12/2023 until 05/11/2024 [facility] Work Phone: Comment on above: 1 Occurrences starti ng 04/12/2023 until 05/11/2024 Us transvaginal US FEMALE PELVIS TRANSVAG Radiology Routine DUB (dysfunctional uterine bleeding) 04/12/2023 2:50 PM EDT [facility] Work Phone: End: 01-31-2024 XR ABDOMEN 1V SUPINE XR ABDOMEN 1V SUPINE Radiology Routine Bloated abdomen Generalized abdominal pain 1 Occurrences starting 01/01/2023 until 01/31/2024 [facility] Work Phone: Comment on above: 1 Occurrences starti ng 01/01/2023 until 01/31/2024 XR ABDOMEN 1V SUPINE XR ABDOMEN 1V SUPINE Radiology Routine Bloated abdomen Generalized abdominal pain 01/01/2023 2:53 PM EST [facility] Work Phone: End: 09-27-2025 XR Lumbar spine AP and Lateral and oblique XR LUMBAR PARS DEFECT 4V AP/LAT/BOTH OBL Radiology Routine Spinal stenosis of lumbar region, unspecified whether neurogenic claudication present 1 Occurrences starting 08/28/2024 until 09/27/2025 [facility] Comment on above: 1 Occurrences starti ng 08/28/2024 until 09/27/2025 End: 09-27-2025 XR Thoracic spine AP and Lateral XR THORACIC LIMITED 2V AP/LAT Radiology Routine Discogenic thoracic pain 1 Occurrences starting 08/28/2024 until 09/27/2025 [facility] Comment on above: 1 Occurrences starti ng 08/28/2024 until 09/27/2025 [facility] Immunizations Immunization Date Immunization Notes Care Provider Fa cili 02-04-2025 tetanus toxoid, redu eugenio diphtheria toxoid, and acellular pertussis vaccine, adsorbed Ermias Lockwood MD Work Phone: [facility] 08-04-2022 pneumococcal (PCV20) vaccine, 20 valent (PREVNAR 20) Edith Salguero PA-C Work Phone: [facility] 08-04-2022 pneumococcal Conjuga te, unspecified formulation Edith Salguero PA-C Work Phone: [facility] Work Phone: 07-26-2021 hepatitis A and hepatitis B vaccine Spring Arambula APRN.STEEL WHEEL ENGRAVER Work Phone: [facility] Work Phone: 06-24-2021 COVID-19 vaccine, ag e 12+ yr (PFIZER-BIONTECH - PURPLE TOP) Spring Arambula GLASS ROLLING MACHINE OPERATOR.STEEL WHEEL ENGRAVER Work Phone: [facility] 06-03-2021 COVID-19 vaccine, ag e 12+ yr (PFIZER-BIONTECH - PURPLE TOP) Spring Arambula GLASS ROLLING MACHINE OPERATOR.STEEL WHEEL ENGRAVER Work Phone: [facility] 02-22-2021 hepatitis A and hepatitis B vaccine Spring Arambula GLASS ROLLING MACHINE OPERATOR.STEEL WHEEL ENGRAVER Work Phone: [facility] Work Phone: 01-18-2021 hepatitis A and hepatitis B vaccine Spring Arambula GLASS ROLLING MACHINE OPERATOR.STEEL WHEEL ENGRAVER Work Phone: [facility] Work Phone: 10-30-2019 influenza virus vacc ine, unspecified formulation Anna Tompkins GLASS ROLLING MACHINE OPERATOR.STEEL WHEEL ENGRAVER Work Phone: [facility] 11-06-2017 tetanus toxoid, redu eugenio diphtheria toxoid, and acellular pertussis vaccine, adsorbed LELIA EDWARDS MD [facility] 06-22-2017 pneumococcal polysaccharide vaccine, 23 valent Spring Arambula GLASS ROLLING MACHINE OPERATOR.STEEL WHEEL ENGRAVER Work Phone: [facility] 07-22-2015 influenza, injectabl e, quadrivalent, contains preservative Spring Arambula GLASS ROLLING MACHINE OPERATOR.STEEL WHEEL ENGRAVER Work Phone: [facility] 05-21-2015 tetanus toxoid, redu eugenio diphtheria toxoid, and acellular pertussis vaccine, adsorbed Spring Arambula GLASS ROLLING MACHINE OPERATOR.STEEL WHEEL ENGRAVER Work Phone: [facility] Work Phone: Payers Date Payer Category Payer Self-pay 2023 Private Health Insurance [employer] SUP [employer] PPO [id number] 2023 Unknown 2023 Unknown [id number] 2019 Medicaid [id number] 2016 Medicaid [id number] 2016 Medicaid [id number] 1990 Unknown [id number] 1990 Unknown [id number] 1990 Unknown [id number] 1990 Unknown [id number] 1990 Unknown [id number] Medicaid MEDICAID [facility] [id number] Effective for all dates [id number] Unknown [id number] Unknown [id number] Unknown [id number] Unknown [id number] Social History Date Type Detail Facility Start: 02-20-2014 End: 06-21-2018 Tobacco smoking status MDIS Current every day smoker [facility] Start: 06-21-2018 End: 07-12-2021 Tobacco use and exposure Never used [facility] Start: 06-21-2018 End: 05-15-2025 Alcohol intake Current non-drinker of alcohol (finding) [facility] Start: 1990 Sex Assigned At Not on file [facility] Start: 07-12-2021 Tobacco smoking status NHIS Ex-smoker [facility] Work Phone: History of tobacco use Cigarette Smoker [facility] Work Phone: Start: 07-12-2021 End: 03-06-2023 Cigarettes smoked current (pack per day) - Reported 1 [facility] Start: 07-12-2021 End: 07-11-2022 Tobacco Comment smokes e-cig now [facility] Start: 02-09-2021 End: 09-19-2022 Exposure to SARS-CoV-2 (event) Not sure [facility] Start: 04-06-2022 End: 03-27-2025 Tobacco smoking status MDIS Occasional tobacco smoker [facility] Work Phone: Start: 07-02-2022 End: 07-12-2022 Exposure to SARS-CoV-2 (event) Yes [facility] History of tobacco use Current smoker [facility] Work Phone: Start: 08-04-2022 Tobacco Comment smokes e-cig now. Smokes 1-2 cigs per day [facility] Start: 12-31-2022 History SDOH Alcohol Frequency 1 [facility] Start: 12-31-2022 History SDOH Alcohol Std Drinks 0 [facility] Start: 12-31-2022 History SDOH Social Connections Phone 5 [facility] Start: 12-31-2022 History SDOH Social Connections Get Together 3 [facility] Start: 12-31-2022 History SDOH Social Connections Membership 2 [facility] Start: 12-31-2022 History SDOH Social Connections Living 8 [facility] Start: 12-31-2022 History SDOH Physical Activity MPS 15 [facility] Start: 12-31-2022 End: 03-06-2023 Social connection and isolation panel [facility] Do you belong to any clubs or organizations such as taoist groups, unions, fraternal or athletic groups, or school groups? No [facility] Are you now , , , , never or living with a partner? Living with partner [facility] How often to you hav e a drink containing alcohol? Never [facility] Start: 09-29-2012 How many standard drinks containing alcohol do you have on a typical day? Patient does not drink [facility] Do you feel stress - tense, restless, nervous, or anxious, or unable to sleep at night because your mind is troubled all the time - these days [OSQ] To some extent [facility] (I/We) worried wheth er (my/our) food would run out before (I/we) got money to buy more. Never true [facility] History of tobacco use Passive smoker [facility] Start: 08-09-2023 End: 07-03-2024 Tobacco use and exposure User of smokeless tobacco [facility] Start: 08-09-2023 Tobacco Comment vape [facility] Tobacco Nicotine Use: Va ping Product in Last 90 Days. Type: Electronic Cigarettes (Vaping). [facility] Sex Assigned At Sex [facility] Start: 03-27-2025 Tobacco use and exposure Former smokeless tobacco user [facility] Functional Status Date Assessment Result Facility 12-17-2023 Functional Status Up ad victor hugo [facility] 12-17-2023 Functional Status Standard Safet y ID band on, Allergy Band on, Call device within reach, Bed in low position, Wheels locked, Visitor at bedside [facility] 03-14-2017 Are you deaf, or do you have serious difficulty hearing No 03/14/2017 9:00 AM EDT Jean Marie Cabral No [facility] 03-14-2017 Are you blind, or do you have serious difficulty seeing, even when wearing glasses No 03/14/2017 9:00 AM EDT Jean Marie Cabral No [facility] 03-14-2017 Do you have serious difficulty walking or climbing stairs No 03/14/2017 9:00 AM EDT Jean Marie Cabral No [facility] 03-14-2017 Do you have difficul ty dressing or bathing No 03/14/2017 9:00 AM EDT Jean Marie Cabral No [facility] 03-14-2017 Because of a physica l, mental, or emotional condition, do you have difficulty doing errands alone such as visiting a physician's office or shopping No 03/14/2017 9:00 AM EDT Jean Marie Cabral No [facility] Mental Status Date Assessment Result Facility 12-17-2023 Mental Status Orientation Oriented x 4 [facility] 12-17-2023 Mental Status [facility] 03-14-2017 Because of a physica l, mental, or emotional condition, do you have serious difficulty concentrating, remembering, or making decisions No 03/14/2017 9:00 AM EDT Jean Marie Cabral No [facility] Clinical Notes 09-20-2016 to 06-16-2025 Javier Reyes, - 06/16/2025 2:40 PM EDTTelephone Encounter - Irwin Blount APRN.EDITH - 06/10/2025 2:48 PM EDTTelephone Encounter - Bishop Henley LPN - 05/22/2025 7:59 AM EDT Note Date & Type Note Facility 06-16-2025 History of Present illness Narrative Images from the original note were not included. [facility] Follow up/ Established patient visit Date of last visit : Visit date not found I have communicated my name and active licensure. The patient's identity and physical location were verified at the time of this visit. Either the patient or their legal environmental marketing representative has been informed of the risks and benefits of -- and alternatives to -- treatment through a remote evaluation and consents to proceed with the evaluation remotely. NOTE: This medical visit is being completed virtually via secure [employer] technology provided by the [facility]. Consent related to this virtual visit being carried out was provided via [id number] as well as verbally. My findings and recommendations will be transmitted electronically via shared medical records to the consulting provider. I have communicated my name and active licensure. The patient's identity and physical location were verified at the time of this visit. Either the patient or their legal environmental marketing representative has been informed of the risks and benefits of -- and alternatives to -- treatment through a remote evaluation and consents to proceed with the evaluation remotely. This patient presents today to the [facility] or virtually for a Sleep Medicine appointment. The medical records available in our [employer] electronic medical record system have been reviewed and pertinent information related to this specific visit are included in this manually typed note. This information will be available to the referring health care provider as well as the patient in the [employer] EMR system. The patient returns today virtually for a scheduled medical visit in the [facility]. All pertinent information in the medical record for the interval between the last visit in the Sleep Disorders Center and today have been reviewed. The last clinical visit if applicable in the [facility] is attached below. [facility] 05/15/2025 Neurology Irwin Blount APRN.CNP Sleep Medicine Primary insomnia +13 more Dx Established Patient Follow Up Insomnia Leg Pain Med Management Reason for Visit Progress Notes Irwin Blount APRN.CNP (Nurse Practitioner) Sleep Medicine Expand All Collapse All [facility] [place] Virtual Visit Follow up / Established patient visit Patient: Marisa Santa : 1990 AGE: [age] year old SEX: female Provider: Irwin Blount APRN.CNP Location: NEUROLOGY Service Date: 05/15/2025 PCP: Ermias Lockwood MD I have communicated my name and active licensure. The patient's identity and physical location were verified at the time of this visit. Either the patient or their legal environmental marketing representative has been informed of the risks and benefits of -- and alternatives to -- treatment through a remote evaluation and consents to proceed with the evaluation remotely. Patient currently states they are in the [facility]. Previous Visit: 12/18/2024 [facility] for appointment on 02/18/2025 INSOMNIA + HYPERSOMNIA + EXCESSIVE DAYTIME SLEEPINESS (EDS) / FATIGUE / INADEQUATE SLEEP HYGIENE + SLEEP DISTURBANCE - due to combination of inadequate sleep hygiene, irregular sleep schedule, stress, depression, anxiety, ADHD, PTSD, untreated sleep apnea, obesity, RLS, anemia, marijuana use, caffeine use, children, psychosocial stressors, chronic fatigue syndrome, Fibromyalgia, and chronic pain. Medications do NOT appear to be a contributing factor as well. - see HPI - current medications: Ambien - discussed with patient good sleep hygiene - Important to get good daily dose of natural sunlight to help wakefulness & energy - Reduce artificial lighting at night, especially light from screens (i.e. cellphones, TV, tablets) - Exercise is helpful for your mental and physical health - Have a consistent bedtime routine 1 hour prior to your usual bedtime - If going to take a nap, it should be less than 30 minutes and prior to 3 pm - Limit alcohol and caffeine use - Avoidance of marijuana and/or CBD use - plan to obtain Genesight, given her extensive mental health history and significant side effects to medications in the past, I recommend Genesight for better management of sleep aides - has tried sleep aides and had suicidal ideations with several of them. - would like to trial MI in the future as this is a good long-term solution for insomnia OBESITY - BMI most recently documented was 32.49 - no significant weight changes noted or reported - Encouraged patient to lose weight with diet and exercise. - Defer management to PCP OBSTRUCTIVE SLEEP APNEA (EARLENE), mild-moderate (PSG AHI: 5.1/hr with REM AHI of 15.6/hr) - EARLENE diagnosed by PSG in 09/2021. Reviewed sleep studies today in clinic See HPI. - previously tried CPAP, did not tolerate, not currently treating - may be contributing to sleep disturbances RESTLESS LEG SYNDROME (KWOK-EKBOM DISEASE) - Caffeine: daily - Smoker: vapes nicotine & THC - Exacerbating medications: - last iron studies: 02/02/2023 - currently on Gabapentin & Ropinirole - reports controlling symptoms good - continue with current plan DEPRESSION / ANXIETY screen DEPRESSION / ANXIETY / PTSD / STRESS / ADD + screens - denies any SI, HI or hallucinations - currently on medication, controlling symptoms fair - recently had changes to medication d/t significant side effects - currently taking Lamictal, Hydroxyzine and Ativan PRN - Defer management to Mental Health Team SMOKING STATUS screen SMOKING STATUS- ACTIVE current daily smoker encouraged smoking cessation at least 3 hrs prior to bedtime Patient can reach out to PCP for smoking cessation assistance MARIJUANA USE Current daily user - vapes May want to look at using CBN for sleep Encouraged no smoking (any form of smoking posses health risks), use of alternative methods of consumption such as edibles, tinctures, and/or oils Follow-up: after genesight testing All of patient's questions were answered. She verbalizes understanding and agreement with my assessment and plan. Irwin Blount APRN.STEEL WHEEL ENGRAVER Patient ID: Marisa Santa is a 35 year old female who presents to a [facility] for follow-up Insomnia & RLS. Patient is here today alone. Interval History Patient was last seen in 11/2024. 05/15/2025 Patient here today for follow-up Insomnia and RLS management. The patient has pertinent hx of EARLENE, Insomnia, hypersomnia, obesity, seizures, RLS, headache, fibromyalgia, asthma, GERD, iron deficiency anemia, hepatitis C, scoliosis, back pain, anxiety, depression, PTSD, Bipolar, nightmares, ADD, hx of opioid & heroin use disorder in remission, marijuana use and current vapes. Patient was last seen in November 2024. Patient no-showed for the last appointment on February 18, 2025, with Dr. Reyes. She was under the impression she did not have to follow-up with him, thus the missed appointment. EARLENE: Patient has history of EARLENE, intolerance to PAP therapy. Previously tried CPAP therapy but did not tolerate it and is not currently utilizing it. Last sleep study showed mild EARLENE at 5.1/hr. Insomnia: Patient report that she is doing better with the Ambien. Still only getting 4 hours of sleep but much better quality of sleep. Her has noticed that she falls asleep quickly and is sleeping deeper at night. RLS: Reports well controlled with Gabapentin TID (600 mg). She reports that since she missed her last appointment, she received notification that her prescriptions would not be refilled till appointment was made. No lapse in medications but struggled to get refills due to No Show of apppointment. Sleep history: - Overall goals of treatment: Improve sleep quality and manage EARLENE and insomnia symptoms. - Use of PAP or prior treatments: - PAP experience: Previously tried CPAP therapy but did not tolerate it. - Current PAP usage: No Sleep study: A polysomnogram performed on 10/01/2021, which revealed an AHI of 5.1 per hour, supine index of 6.6 per hour, REM index of 15.6 per hour, LUCILA of 1, PLM index was negative, mean SpO2 of 93%, SpO2 kurt of 86%, and oxygen saturation below 88% for 0.1% (0.3 minutes) of the study.Stages of sleep noted were all 4 stages. Patient's BMI at the time of the sleep study was 35.4. Patient had a PAP titration study done on 12/04/2021, which showed none of the tested PAP settings reduced AHI to normal. Titrated during the study from 5 to 8 cm H2O. Stages of sleep noted were all 4 stages. Patient's BMI at the time of the study was 35.9. SLEEP STUDY HISTORY A Polysomnogram performed on 10/01/2021 revealed an AHI of 5.1/hr; supine index of 6.6/hr; REM index of 15.6/hr, LUCILA 1, PLM index was negative, mean SpO2 of 93%, SpO2 kurt of 86% and the oxygen saturation was below 88% for 0.1% (0.3 mins) of the study. Stage of sleep noted were all four stages. Patient BMI at time of study was 35.4. Patient had a PAP titration study on 12/04/2021 which showed that none of the tested PAP setting reduced the AHI to normal. Titrated during study from 5 to 8 cm H2O. Stage of sleep noted were all four stages. Patient BMI at time of study was 35.9. PAP ADHERENCE: Not applicable PAP COMPLIANCE DOWNLOAD: ALLERGIES ALLERGIES Allergen Reactions Clindamycin Anaphylaxis Phenergan [Prometha* Mental Status Change Celexa [Citalopram * Unknown Doxycycline Other: See Comments Nausea, vomiting and diarrhea Effexor [Venlafaxin* Unknown Paxil [Paroxetine H* Other: See Comments Depression made worse Remeron [Mirtazapin* Other: See Comments [place] strange on it. Xanax [Alprazolam] Unknown CURRENT MEDICATIONS Current Outpatient Medications Medication Sig methylPREDNISolone (MEDROL, PANTERA,) 4 mg Dose-Pack Follow dosing instructions, take with food. zolpidem (AMBIEN CR) 6.25 mg CR tablet Take 1 tablet by mouth daily at bedtime for 30 days. gabapentin (NEURONTIN) 600 mg tablet Take 1 tablet by mouth three times a day for 90 days. 1 po three times a day (noon, 5pm and bedtime) for treatment refractory RLS pain baclofen 10 mg tablet Take 1 tablet by mouth two times a day. ondansetron orally disintegrating (ZOFRAN ODT) 4 mg disintegrating tablet Take 1 tablet by mouth every 12 hours as needed for nausea/vomiting. ascorbic acid, vitamin C, (VITAMIN C) 500 mg tablet Take 1 tablet by mouth once daily. simvastatin (ZOCOR) 5 mg tablet Take 1 tablet by mouth daily at bedtime. For cholesterols albuterol HFA (PROVENTIL HFA, VENTOLIN HFA) 90 mcg/actuation inhaler Inhale 2 Puffs as instructed every 4 hours as needed for wheezing/shortness of breath. omeprazole (PRILOSEC) 40 mg capsule Take one tab 30 min prior to breakfast and dinner. lamoTRIgine (LAMICTAL) 150 mg tablet Take 150 mg by mouth twice daily. hydrOXYzine HCl (ATARAX) 50 mg tablet Take 1 tablet by mouth three times daily. albuterol HFA (VENTOLIN HFA) 90 mcg/actuation inhaler Inhale 2 Puffs as instructed every 4 hours as needed for Wheezing/Shortness of Breath. No current facility-administered medications for this visit. PERTINENT PAST MEDICAL HISTORY: See HPI PERTINENT PAST SURGICAL HISTORY for Sleep Medicine: No pertinent surgical hx noted PERTINENT FAMILY HISTORY for Sleep Medicine: There is no family history of sleep disorders. 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 Smoking: current daily smoker ETOH: No Marijuana: Yes Caffeine: Yes Active Problems, Allergy List, Medication List, and PMH/PSH/FH/Social Hx have been reviewed and reconciled in chart. No significant changes unless documented in the pertinent chart section. Updates made when necessary. VITAL SIGNS: [facility] 03/21/2025 (Exact Date) BMI: There is no height or weight on file to calculate BMI. PHYSICAL EXAM: Limited telehealth examination General appearance: awake alert in NAD Affect: normal Skin: no rash on areas visible to the video HEENT: Nasal congestion absent Teeth: normal dentition Lungs: no cough. Extr: grossly normal on areas visible to the video Neuro: normal speech Iron Date Value Ref Range Status 02/02/2023 112 41 - 186 ug/dL Final Transferrin Date Value Ref Range Status 01/30/2019 249 200 - 360 mg/dL Final TIBC Date Value Ref Range Status 02/02/2023 279 232 - 386 ug/dL Final Ferritin Date Value Ref Range Status 02/02/2023 114.0 14.7 - 205.1 ng/mL Final CO2 Date Value Ref Range Status 03/27/2025 26 22 - 30 mmol/L Final TSH Date Value Ref Range Status 03/06/2024 1.960 0.270 - 4.200 mIU/L Final Comment: If the patient is , TSH reference range varies by gestational period: First Trimester (weeks 9-12): 0.180-2.990 mIU/L Second Trimester: 0.110-3.980 mIU/L Third Trimester: 0.480-4.710 mIU/L Rudolph Fox, et al. A Practical Approach for the Verifications and Determination of Site- and Trimester-Specific Reference Intervals for Thyroid Function tests in . Thyroid, 2019:29:3:412-420. Corey Garcia, et al. 2017 Guidelines of the [place] [employer] Association for the Diagnosis and Management of Thyroid Disease during and the . Thyroid, 2017:27:3:315-389. Patient Questionnaires Sleep Scores 12/03/2024 05/07/2025 [facility] Sleepiness Scale Score 12 (Excessive daytime sleepiness present) 8 (No clinically significant daytime sleepiness) 05/07/2025 PROMIS CAT Sleep Disturbance PROMIS Sleep Disturbance T-Score 65 (moderate) PROMIS Sleep Disturbance Percentile 7 05/07/2025 Insomnia Severity Index Score 19 12/03/2024 05/07/2025 Restless Leg Syndrome Score 28 (Severe symptoms) 13 (Moderate symptoms) 05/07/2025 PROMIS Global Health - (T-Scores - the mean of general population = 50. Five points is a clinically meaningful difference.) Physical T-Score 50.8 Mental T-Score 45.8 05/07/2025 PHQ 2 and 9 Total Scores PHQ-2 Score 2 PHQ-9 Score 10 No data to display IMPRESSION/PLAN: Marisa Santa is a 35 year old female presents today in [facility] with the following problems: Primary insomnia (F51.01) - Currently managed with Ambien 5 mg, which induces rapid sleep onset but does not maintain sleep throughout the night. - Initiated Ambien CR to extend sleep duration; if not covered by insurance, increase regular Ambien to 10 mg. - Prescriptions sent to [facility] in [place]. RLS (restless legs syndrome) (G25.81) - Managed with gabapentin 600 mg TID. - Continue current gabapentin regimen. - Refill sent over today EARLENE (obstructive sleep apnea) (G47.33) - Polysomnogram on 10/01/2021 revealed AHI of 5.1/hr, supine index of 6.6/hr, REM index of 15.6/hr, LUCILA of 1, mean SpO2 of 93%, SpO2 kurt of 86%. CPAP titration on 12/04/2021 showed no effective settings; patient did not tolerate CPAP therapy. - No current treatment at this time. - Likely untreated EARLENE is contributing to some sleep disturbance at night. Medication management (Z79.899) - Current medications include Ambien 5 mg & Gabapentin 600 mg TID. - Reviewed OARRS, no red flags noted. - Adjusted Ambien dosage as discussed. - Continue current Gabapentin as prescribed. Overweight (BMI 25.0-29.9) (E66.3) - BMI at time of last sleep study was 35.9. - Most recent documented BMI was 29.95 Excessive daytime sleepiness (G47.19) Fatigue, unspecified type (R53.83) Inadequate sleep hygiene (Z72.821) Sleep disturbance (G47.9) - Ongoing issues with sleep onset and maintenance. - Addressed through medication adjustments and sleep hygiene education. - Reinforced importance of maintaining regular sleep schedule and minimizing stimulants before bedtime. Depression, unspecified depression type (F32.A)PTSD (post-traumatic stress disorder) (F43.10) Anxiety (F41.9) - Under management by psychiatry; current medications include Strattera. - Contributing to overall mental health status and sleep disturbance. - Continue psychiatric follow-up and medication management. Current smoker (F17.200) Vapes regularly. Marijuana use (F12.90) Regular use reported. Follow-up: 3 months or sooner if needed All of patient's questions were answered. She verbalizes understanding and agreement with my assessment and plan. Electronically signed by Irwin Blount APRN.STEEL WHEEL ENGRAVER Note Details Instructions Return in about 3 months (around 08/15/2025). Thank you for coming to [facility] today! Your sleep medicine provider today was Nurse Practitioner Irwin Blount. Below is a summary of your treatment plan, patient education, other important information, and contact numbers. It was a pleasure meeting you today Marisa Dominique Santa As we discussed today in clinic: - Fill the prescribed Ambien extended-release at the higher dose and take it at bedtime; if your insurance does not approve the extended-release, use Ambien 10 mg at bedtime instead. - Continue gabapentin 600 mg three times daily (noon, 5 PM, and at bedtime). Updated prescription sent to pharmacy. - Talk with your psychiatrist about adjusting your Strattera dose as needed. - If you develop COVID-19 symptoms or test positive, get plenty of rest and stay well-hydrated. - Keep your follow-up appointment with Dr. Reyes in May. - Avoid driving or operating heavy machinery when drowsy. A person driving while sleepy is 5 times more likely to have an accident. If you feel sleepy, mold puller and take a short power nap (sleep for less than 30 minutes). Otherwise, ask somebody to drive you. Follow-up: as scheduled with Dr. Reyes ALWAYS BRING YOUR CPAP / BIPAP WITH YOU TO EVERY APPOINTMENT! THANKS FOR QUESTIONS AND CONCERNS: 1. In case of problems with machine or mask interface, please contact your DME company first. DME is the company that provides you the machine and/or CPAP supplies. Your DME is: 2. For SLEEP STUDY appointments, please call [facility] or [facility]: [phone] - [place] - [phone] - [place] - [phone] 3. For MEDICAL QUESTIONS or MEDICATION REFILLS, please do not hesitate to send us a Meddle message or call our collaborating Benefits Sales Consultant nurse Wellington RN, BSN at [phone] Extension #5. 4. For CLINIC APPOINTMENT SCHEDULING, please call [phone] or [phone] Here at [facility] Sleep Medicine Department, we wish you a restful sleep! After Visit Summary (Czech View) (Snapshot) - Automatic Snapshot taken 05/15/2025 Additional Documentation Vitals: LMP 03/21/2025 (Exact Date) Flowsheets: Patient-Reported Data, [facility] PDMP NARXCARE SCORES SmartForms: PHYSICIAN / PATIENT LOCATION ADVANCED Encounter Info: Billing Info, History, Allergies, Detailed Report, Procedural Documentation Communications View All Conversations on this Encounter Pharmacy Benefits Verify Pharmacy Benefits MARISA SANTA Dominique - MMO - UGP UGP L+; ([employer]) Covered: Retail, Mail Order Unknown: Specialty, Long-Term Care BIN: [id number] : 1990 Group ID: [id number] PCN: [id number] Legal sex: F Group name: [employer] Address: [address] [place] [address] [address] [place] [id number] Travel Screening and History Disease Screening Row Name 05/14/252055 Has the Patient Had 2 Falls in the Last Year or 1 Fall with Injury or Currently Using an Ambulatory Assistive Device (Walker, Cane, Wheelchair, Crutches, etc.) No Are you having pain associated with your visit today? No Encounter Report Facesheet Report Orders Placed None Medication Changes zolpidem tartrate 6.25 mg ORAL AT BEDTIME Medication List Visit Diagnoses Primary insomnia RLS (restless legs syndrome) EARLENE (obstructive sleep apnea) Medication management Overweight (BMI 25.0-29.9) Excessive daytime sleepiness Fatigue, unspecified type Inadequate sleep hygiene Sleep disturbance Depression, unspecified depression type PTSD (post-traumatic stress disorder) Anxiety Current smoker Marijuana use Problem List This is a continuation of today's Clinical Note: Note that the following is the continuation of today's clinical staff physician note and that the above attached Physician/Advanced Practicing Nurse clinical note or Sleep Study report is for review purposes. At the last visit [place] CR ordered. Gabapentin continued for RLS. All of her meds in a bag were lost on her trip to [place]. Jasmin Blount sent in an emergency refill. Her brain was buzzing. She resumed all of her meds. Her Ambien at CR 6.25 is helpful. On Strattera is not helping as well. Gabapentin helps overall. It is time for her regular refills soon. PATIENT-ENTERED QUESTIONNAIRE SLEEP SCORES 06/16/2025 Sleep Questions Reason for visit: Difficulty falling or staying asleep or poor sleep quality Excessive daytime sleepiness Restless Legs Syndrome Abnormal sleep/wake timing On average, hours of sleep in 24 hours: 4 Accidents or near accidents due to drowsy drivin Multiple values from one day are sorted in reverse-chronological order 12/03/2024 05/07/2025 06/16/2025 [facility] Sleepiness Scale Score 12 (Excessive daytime sleepiness present) 8 (No clinically significant daytime sleepiness) 10 (No clinically significant daytime sleepiness) 12/03/2024 05/07/2025 06/16/2025 PROMIS CAT Sleep Disturbance PROMIS Sleep Disturbance T-Score 75 (severe) 65 (moderate) 69 (moderate) PROMIS Sleep Disturbance Percentile 1 7 3 12/03/2024 05/07/2025 06/16/2025 Insomnia Severity Index Score 24 19 22 12/03/2024 05/07/2025 06/16/2025 Restless Leg Syndrome Score 28 (Severe symptoms) 13 (Moderate symptoms) 19 (Moderate symptoms) 12/03/2024 05/07/2025 06/16/2025 PHQ-9 Score 14 10 19 11/27/2024 05/07/2025 06/16/2025 PROMIS Global Health - (T-Scores - the mean of general population = 50. Five points is a clinically meaningful difference.) Physical T-Score 39.8 39.8 39.8 50.8 34.9 Mental T-Score 38.8 38.8 38.8 45.8 36.3 PMH, PSH, SH: as before SLEEP RELATED ROS Review of Systems ALLERGIES Allergen Reactions Clindamycin Anaphylaxis Phenergan [Prometha* Mental Status Change Celexa [Citalopram * Unknown Doxycycline Other: See Comments Nausea, vomiting and diarrhea Effexor [Venlafaxin* Unknown Paxil [Paroxetine H* Other: See Comments Depression made worse Remeron [Mirtazapin* Other: See Comments [place] strange on it. Xanax [Alprazolam] Unknown CURRENT MEDICATIONS: zolpidem (AMBIEN CR) 6.25 mg CR tablet Take 1 tablet by mouth daily at bedtime for 30 days. gabapentin (NEURONTIN) 600 mg tablet Take 1 tablet by mouth three times a day for 7 days. 1 po three times a day (noon, 5pm and bedtime) for treatment refractory RLS pain albuterol HFA (VENTOLIN HFA) 90 mcg/actuation inhaler Inhale 2 puffs as instructed every 4 hours as needed for wheezing/shortness of breath. gabapentin (NEURONTIN) 600 mg tablet Take 1 tablet by mouth three times a day for 90 days. 1 po three times a day (noon, 5pm and bedtime) for treatment refractory RLS pain baclofen 10 mg tablet Take 1 tablet by mouth two times a day. ondansetron orally disintegrating (ZOFRAN ODT) 4 mg disintegrating tablet Take 1 tablet by mouth every 12 hours as needed for nausea/vomiting. ascorbic acid, vitamin C, (VITAMIN C) 500 mg tablet Take 1 tablet by mouth once daily. simvastatin (ZOCOR) 5 mg tablet Take 1 tablet by mouth daily at bedtime. For cholesterols albuterol HFA (PROVENTIL HFA, VENTOLIN HFA) 90 mcg/actuation inhaler Inhale 2 Puffs as instructed every 4 hours as needed for wheezing/shortness of breath. omeprazole (PRILOSEC) 40 mg capsule Take one tab 30 min prior to breakfast and dinner. lamoTRIgine (LAMICTAL) 150 mg tablet Take 150 mg by mouth twice daily. hydrOXYzine HCl (ATARAX) 50 mg tablet Take 1 tablet by mouth three times daily. PHYSICAL EXAMINATION: Mental Status Examination: General: No acute distress Alertness: Alert Orientation: Oriented to person, place and time Eye contact: Good Mental attitude: Positive Historian: Good Constitutional: Pleasant and cooperative Speech Rate: Normal Speech Tone: Normal Speech Articulation: Normal Speech Spontaneity: Normal Bradyphrenia: None Loose Associations: None Thought Processes: Normal Tangential: No Circumstantial: No Abstraction: Seems normal Computation: Seems relatively normal Suicidal thoughts: None reported Homicidal thoughts: None Hallucinations (Auditory, visual, gustatory): None Delusions: None EPS: None AIM Scale: 0 Violent ideations: None Paranoid thoughts: None exhibited Guarded: No Obsessions: None Phobias: None Judgement: Good Insight: Good Fund of Knowledge: Intact Mood: Euthymic Affect: Reactive Physical Examination: Note that no supplement oxygen is in use No acute distress; consistent with age; the patient is not sleepy at the time of the appointment IMPRESSION: Chronic insomnia (primary encounter diagnosis) Kwok-ekbom syndrome PLAN: Thus, after reviewing the [facility] Electronic Medical Record and interviewing the patient either in person or virtually it is my professional opinion that the patient should continue the current medications at the current doses and times for the primary encounter diagnosis. She is stable on these medications. The risks, benefits and common adverse events were reviewed with the patient and they appear to understand. The patient may review the pharmacy drug information sheet and is welcome to review the entire product information sheet from the hourly associate. I would be happy to review any questions they have after review of that detailed FDA approved medical information. I, our LEI SELLER and administrative staff will all continue to monitor the [place] Automated Rx Reporting System (OARRS) on a regular basis and document that it has been reviewed and that the patient is not obtaining controlled substances from another provider. Random drug screens may be given depending on the case. I would like for you to follow up with me (or with one of my collaborating Sleep Medicine Advance Practice Providers such as ABDIRIZAK Kwon) in approximately 90 days. It was a pleasure visiting with you today in the [facility]. It is an honor and privilege to help you with your medical care. Please schedule a follow up appointment with me or with one of my collaborating Advance Practice Nurse Sleep Medicine Nurse Practitioners (christian science reader) such as Irwin Blount either in person at the [facility] or virtually via Zoom in 90 days. The appointment telephone number for the Sleep Disorder Center is [phone]. Note that Meddle may also be used to schedule your next appointment. Remember to follow up with your other medical specialists and your primary care provider. If you have any further questions for me regarding the diagnosis or recommendations today, please do not hesitate to send us a Meddle message or call my collaborating Benefits Sales Consultant nurse Wellington RN, BSN at [phone] Extension #5. I spent a total time of over 30 minutes on the date of the service on this case. This included preparing to see the patient by reviewing the medical record prior to examining the patient (known as Pre Charting), interviewing the patient face to face in the clinic or virtually via audio and video secure [facility] technology, ordering appropriate medications/tests/procedures, completing clinical documentation of the visit, counseling and educating the patient/family/caregiver, communicating with other health care providers as well as general care coordination. Javier Reyes DO, [facility] [employer], ABSM Director, Sleep Medicine Fellowship Consulting Systems EngineerFelter Tennis Balls, [facility] Chief Experience Officer, Sleep Medicine Center Clinical Staff Physician, Sleep Medicine [facility] Department of Neurology Department of Psychiatry [address] Mail Code S-[address] documented in this encounter [facility] 06-16-2025 Note HNO ID: [id number] Author: JAVIER REYES DO Service: ? Author Type: Physician Type: Progress Notes Filed: 06/16/2025 14:47 Note Text: [facility] Follow up/ Established patient visit Date of last visit : Visit date not found I have communicated my name and active licensure. The patient's identity and physical location were verified at the time of this visit. Either the patient or their legal environmental marketing representative has been informed of the risks and benefits of -- and alternatives to -- treatment through a remote evaluation and consents to proceed with the evaluation remotely. NOTE: This medical visit is being completed virtually via secure [employer] technology provided by the [facility]. Consent related to this virtual visit being carried out was provided via 25eight as well as verbally. My findings and recommendations will be transmitted electronically via shared medical records to the consulting provider. I have communicated my name and active licensure. The patient's identity and physical location were verified at the time of this visit. Either the patient or their legal environmental marketing representative has been informed of the risks and benefits of -- and alternatives to -- treatment through a remote evaluation and consents to proceed with the evaluation remotely. This patient presents today to the [facility] or virtually for a Sleep Medicine appointment. The medical records available in our [employer] electronic medical record system have been reviewed and pertinent information related to this specific visit are included in this manually typed note. This information will be available to the referring health care provider as well as the patient in the [employer] EMR system. The patient returns today virtually for a scheduled medical visit in the [facility]. All pertinent information in the medical record for the interval between the last visit in the Sleep Disorders Center and today have been reviewed. The last clinical visit if applicable in the Sleep Disorders Center is attached below. [facility] 05/15/2025 Neurology Irwin Blount APRN.EDITH Sleep Medicine Primary insomnia +13 more Dx Established Patient Follow Up Insomnia Leg Pain Med Management Reason for Visit Progress Notes Irwin Blount APRN.EDITH (Nurse Practitioner) Sleep Medicine Expand All Collapse All [facility] Sleep Disorders Center Virtual Visit Follow up / Established patient visit Patient: Marisa Santa : 1990 AGE: [age] year old SEX: female Provider: Irwin Blount APRN.CNP Location: NEUROLOGY Service Date: 05/15/2025 PCP: Ermias Lockwood MD I have communicated my name and active licensure. The patient's identity and physical location were verified at the time of this visit. Either the patient or their legal environmental marketing representative has been informed of the risks and benefits of -- and alternatives to -- treatment through a remote evaluation and consents to proceed with the evaluation remotely. Patient currently states they are in the [facility]. Previous Visit: 12/18/2024 [facility] for appointment on 02/18/2025 INSOMNIA + HYPERSOMNIA + EXCESSIVE DAYTIME SLEEPINESS (EDS) / FATIGUE / INADEQUATE SLEEP HYGIENE + SLEEP DISTURBANCE - due to combination of inadequate sleep hygiene, irregular sleep schedule, stress, depression, anxiety, ADHD, PTSD, untreated sleep apnea, obesity, RLS, anemia, marijuana use, caffeine use, children, psychosocial stressors, chronic fatigue syndrome, Fibromyalgia, and chronic pain. Medications do NOT appear to be a contributing factor as well. - see HPI - current medications: Ambien - discussed with patient good sleep hygiene - Important to get good daily dose of natural sunlight to help wakefulness AND energy - Reduce artificial lighting at night, especially light from screens (i.e. cellphones, TV, tablets) - Exercise is helpful for your mental and physical health - Have a consistent bedtime routine 1 hour prior to your usual bedtime - If going to take a nap, it should be less than 30 minutes and prior to 3 pm - Limit alcohol and caffeine use - Avoidance of marijuana and/or CBD use - plan to obtain Genesight, given her extensive mental health history and significant side effects to medications in the past, I recommend [facility] for better management of sleep aides - has tried sleep aides and had suicidal ideations with several of them. - would like to trial MI in the future as this is a good long-term solution for insomnia OBESITY - BMI most recently documented was 32.49 - no significant weight changes noted or reported - Encouraged patient to lose weight with diet and exercise. - Defer management to PCP OBSTRUCTIVE SLEEP APNEA (more content not included)... [facility] 06-10-2025 Telephone encounter Note CONTROLLED SUBSTANCE HPI Current medications: Ambien CR 6.25 mg at bedtime Date of last refill: 05/15/2025 Patient has follow-up appointment schedule: Yes on 06/16/2025 Last note/visit: 05/15/2025 Last visit in-person: 12/03/2024 Last Visit with Physician: 02/18/2025 Reviewed note today: Yes OARRS: Yes, reviewed and No discrepancies I have personally reviewed the OARRS report for Marisa Santa. I have considered the risks of abuse, dependence, addiction and diversion and I believe that it is clinically appropriate for Marisa Santa to be prescribed this medication. Is the patient prescribed a combination of benzodiazepine and opioid? No Controlled substance agreement: Date of the last agreement: none on file for sleep medicine Date of last urine drug screen: 01/2019 Okay for refill on medication. [facility] 06-10-2025 Miscellaneous Notes CONTROLLED SUBSTANCE HPI Current medications: Ambien CR 6.25 mg at bedtime Date of last refill: 05/15/2025 Patient has follow-up appointment schedule: Yes on 06/16/2025 Last note/visit: 05/15/2025 Last visit in-person: 12/03/2024 Last Visit with Physician: 02/18/2025 Reviewed note today: Yes OARRS: Yes, reviewed and No discrepancies I have personally reviewed the OARRS report for Marisa Santa. I have considered the risks of abuse, dependence, addiction and diversion and I believe that it is clinically appropriate for Marisa Santa to be prescribed this medication. Is the patient prescribed a combination of benzodiazepine and opioid? No Controlled substance agreement: Date of the last agreement: none on file for sleep medicine Date of last urine drug screen: 01/2019 Okay for refill on medication. HEMALATHA: 05/15/2025 In Person - 12/03/2024 MD Misael Reyes F/U: 06/16/2025 IMPRESSION/PLAN: Marisa Santa is a 35 year old female presents today in [facility] with the following problems: Primary insomnia (F51.01) - Currently managed with Ambien 5 mg, which induces rapid sleep onset but does not maintain sleep throughout the night. - Initiated Ambien CR to extend sleep duration; if not covered by insurance, increase regular Ambien to 10 mg. - Prescriptions sent to [facility] in [place]. RLS (restless legs syndrome) (G25.81) - Managed with gabapentin 600 mg TID. - Continue current gabapentin regimen. - Refill sent over today EARLENE (obstructive sleep apnea) (G47.33) - Polysomnogram on 10/01/2021 revealed AHI of 5.1/hr, supine index of 6.6/hr, REM index of 15.6/hr, LUCILA of 1, mean SpO2 of 93%, SpO2 kurt of 86%. CPAP titration on 12/04/2021 showed no effective settings; patient did not tolerate CPAP therapy. - No current treatment at this time. - Likely untreated EARLENE is contributing to some sleep disturbance at night. Medication management (Z79.899) - Current medications include Ambien 5 mg & Gabapentin 600 mg TID. - Reviewed OARRS, no red flags noted. - Adjusted Ambien dosage as discussed. - Continue current Gabapentin as prescribed. Overweight (BMI 25.0-29.9) (E66.3) - BMI at time of last sleep study was 35.9. - Most recent documented BMI was 29.95 Excessive daytime sleepiness (G47.19) Fatigue, unspecified type (R53.83) Inadequate sleep hygiene (Z72.821) Sleep disturbance (G47.9) - Ongoing issues with sleep onset and maintenance. - Addressed through medication adjustments and sleep hygiene education. - Reinforced importance of maintaining regular sleep schedule and minimizing stimulants before bedtime. Depression, unspecified depression type (F32.A)PTSD (post-traumatic stress disorder) (F43.10) Anxiety (F41.9) - Under management by psychiatry; current medications include Strattera. - Contributing to overall mental health status and sleep disturbance. - Continue psychiatric follow-up and medication management. Current smoker (F17.200) Vapes regularly. Marijuana use (F12.90) Regular use reported. Follow-up: 3 months or sooner if needed All of patient's questions were answered. She verbalizes understanding and agreement with my assessment and plan. Electronically signed by Irwin Blount APRN.STEEL WHEEL ENGRAVER documented in this encounter [facility] 06-10-2025 Telephone encounter Note HEMALATHA: 05/15/2025 In Person - 12/03/2024 MD Misael Reyes F/U: 06/16/2025 IMPRESSION/PLAN: Marisa Santa is a 35 year old female presents today in [facility] with the following problems: Primary insomnia (F51.01) - Currently managed with Ambien 5 mg, which induces rapid sleep onset but does not maintain sleep throughout the night. - Initiated Ambien CR to extend sleep duration; if not covered by insurance, increase regular Ambien to 10 mg. - Prescriptions sent to [facility] in [place]. RLS (restless legs syndrome) (G25.81) - Managed with gabapentin 600 mg TID. - Continue current gabapentin regimen. - Refill sent over today EARLENE (obstructive sleep apnea) (G47.33) - Polysomnogram on 10/01/2021 revealed AHI of 5.1/hr, supine index of 6.6/hr, REM index of 15.6/hr, LUCILA of 1, mean SpO2 of 93%, SpO2 kurt of 86%. CPAP titration on 12/04/2021 showed no effective settings; patient did not tolerate CPAP therapy. - No current treatment at this time. - Likely untreated EARLENE is contributing to some sleep disturbance at night. Medication management (Z79.899) - Current medications include Ambien 5 mg & Gabapentin 600 mg TID. - Reviewed OARRS, no red flags noted. - Adjusted Ambien dosage as discussed. - Continue current Gabapentin as prescribed. Overweight (BMI 25.0-29.9) (E66.3) - BMI at time of last sleep study was 35.9. - Most recent documented BMI was 29.95 Excessive daytime sleepiness (G47.19) Fatigue, unspecified type (R53.83) Inadequate sleep hygiene (Z72.821) Sleep disturbance (G47.9) - Ongoing issues with sleep onset and maintenance. - Addressed through medication adjustments and sleep hygiene education. - Reinforced importance of maintaining regular sleep schedule and minimizing stimulants before bedtime. Depression, unspecified depression type (F32.A)PTSD (post-traumatic stress disorder) (F43.10) Anxiety (F41.9) - Under management by psychiatry; current medications include Strattera. - Contributing to overall mental health status and sleep disturbance. - Continue psychiatric follow-up and medication management. Current smoker (F17.200) Vapes regularly. Marijuana use (F12.90) Regular use reported. Follow-up: 3 months or sooner if needed All of patient's questions were answered. She verbalizes understanding and agreement with my assessment and plan. Electronically signed by Irwin Blount APRN.STEEL WHEEL ENGRAVER [facility] 05-22-2025 Telephone encounter Note Prescription Refill Information The patient has been identified by name and date of : Yes Caregiver verified no other encounters exist for this prescription request: Yes Caregiver confirmed with patient/requestor that no other refills are due, in the near future, with this provider at this time: Yes The last office visit in the department: 05/15/25 Does the patient have a future office visit with this provider/department: Yes Requested Prescriptions Pending Prescriptions Disp Refills albuterol HFA (VENTOLIN HFA) 90 mcg/actuation inhaler 18 g 1 Sig: Inhale 2 puffs as instructed every 4 hours as needed for wheezing/shortness of breath. Bishop Henley LPN May 22, 2025 7:59 AM [facility] 05-22-2025 Miscellaneous Notes Prescription Refill Information The patient has been identified by name and date of : Yes Caregiver verified no other encounters exist for this prescription request: Yes Caregiver confirmed with patient/requestor that no other refills are due, in the near future, with this provider at this time: Yes The last office visit in the department: 05/15/25 Does the patient have a future office visit with this provider/department: Yes Requested Prescriptions Pending Prescriptions Disp Refills albuterol HFA (VENTOLIN HFA) 90 mcg/actuation inhaler 18 g 1 Sig: Inhale 2 puffs as instructed every 4 hours as needed for wheezing/shortness of breath. Bishop Henley LPN May 22, 2025 7:59 AM documented in this encounter [facility] 05-15-2025 Instructions Irwin Blount APRN.STEEL WHEEL ENGRAVER - 05/15/2025 2:28 PM EDT Thank you for coming to [facility] today! Your sleep medicine provider today was Nurse Practitioner Irwin Blount. Below is a summary of your treatment plan, patient education, other important information, and contact numbers. It was a pleasure meeting you today Marisa Santa As we discussed today in clinic: - Fill the prescribed Ambien extended-release at the higher dose and take it at bedtime; if your insurance does not approve the extended-release, use Ambien 10 mg at bedtime instead. - Continue gabapentin 600 mg three times daily (noon, 5 PM, and at bedtime). Updated prescription sent to pharmacy. - Talk with your psychiatrist about adjusting your Strattera dose as needed. - If you develop COVID-19 symptoms or test positive, get plenty of rest and stay well-hydrated. - Keep your follow-up appointment with Dr. Reyes in May. - Avoid driving or operating heavy machinery when drowsy. A person driving while sleepy is 5 times more likely to have an accident. If you feel sleepy, mold puller and take a short power nap (sleep for less than 30 minutes). Otherwise, ask somebody to drive you. Follow-up: as scheduled with Dr. Reyes ALWAYS BRING YOUR CPAP / BIPAP WITH YOU TO EVERY APPOINTMENT! THANKS FOR QUESTIONS AND CONCERNS: 1. In case of problems with machine or mask interface, please contact your DME company first. DME is the company that provides you the machine and/or CPAP supplies. Your DME is: 2. For SLEEP STUDY appointments, please call [facility] or [facility]: [phone] - [place] - [phone] - [facility] [phone] 3. For MEDICAL QUESTIONS or MEDICATION REFILLS, please do not hesitate to send us a Meddle message or call our collaborating Benefits Sales Consultant nurse Wellington RN, BSN at [phone] Extension #5. 4. For CLINIC APPOINTMENT SCHEDULING, please call [phone] or [phone] Here at [facility] Sleep Medicine Department, we wish you a restful sleep! documented in this encounter [facility] 05-15-2025 History of Present illness Narrative Images from the original note were not included. [facility] Sleep Disorders Center Virtual Visit Follow up / Established patient visit Patient: Marisa Santa : 1990 AGE: [age] year old SEX: female Provider: Irwin Blount APRN.CNP Location: NEUROLOGY Service Date: 05/15/2025 PCP: Ermias Lockwood MD I have communicated my name and active licensure. The patient's identity and physical location were verified at the time of this visit. Either the patient or their legal environmental marketing representative has been informed of the risks and benefits of -- and alternatives to -- treatment through a remote evaluation and consents to proceed with the evaluation remotely. Patient currently states they are in the [facility]. Previous Visit: 12/18/2024 [facility] for appointment on 02/18/2025 INSOMNIA + HYPERSOMNIA + EXCESSIVE DAYTIME SLEEPINESS (EDS) / FATIGUE / INADEQUATE SLEEP HYGIENE + SLEEP DISTURBANCE - due to combination of inadequate sleep hygiene, irregular sleep schedule, stress, depression, anxiety, ADHD, PTSD, untreated sleep apnea, obesity, RLS, anemia, marijuana use, caffeine use, children, psychosocial stressors, chronic fatigue syndrome, Fibromyalgia, and chronic pain. Medications do NOT appear to be a contributing factor as well. - see HPI - current medications: Ambien - discussed with patient good sleep hygiene - Important to get good daily dose of natural sunlight to help wakefulness & energy - Reduce artificial lighting at night, especially light from screens (i.e. cellphones, TV, tablets) - Exercise is helpful for your mental and physical health - Have a consistent bedtime routine 1 hour prior to your usual bedtime - If going to take a nap, it should be less than 30 minutes and prior to 3 pm - Limit alcohol and caffeine use - Avoidance of marijuana and/or CBD use - plan to obtain Genesight, given her extensive mental health history and significant side effects to medications in the past, I recommend Genesight for better management of sleep aides - has tried sleep aides and had suicidal ideations with several of them. - would like to trial MI in the future as this is a good long-term solution for insomnia OBESITY - BMI most recently documented was 32.49 - no significant weight changes noted or reported - Encouraged patient to lose weight with diet and exercise. - Defer management to PCP OBSTRUCTIVE SLEEP APNEA (EARLENE), mild-moderate (PSG AHI: 5.1/hr with REM AHI of 15.6/hr) - EARLENE diagnosed by PSG in 09/2021. Reviewed sleep studies today in clinic See HPI. - previously tried CPAP, did not tolerate, not currently treating - may be contributing to sleep disturbances RESTLESS LEG SYNDROME (KWOK-EKBOM DISEASE) - Caffeine: daily - Smoker: vapes nicotine & THC - Exacerbating medications: - last iron studies: 02/02/2023 - currently on Gabapentin & Ropinirole - reports controlling symptoms good - continue with current plan DEPRESSION / ANXIETY screen DEPRESSION / ANXIETY / PTSD / STRESS / ADD + screens - denies any SI, HI or hallucinations - currently on medication, controlling symptoms fair - recently had changes to medication d/t significant side effects - currently taking Lamictal, Hydroxyzine and Ativan PRN - Defer management to Mental Health Team SMOKING STATUS screen SMOKING STATUS- ACTIVE current daily smoker encouraged smoking cessation at least 3 hrs prior to bedtime Patient can reach out to PCP for smoking cessation assistance MARIJUANA USE Current daily user - vapes May want to look at using CBN for sleep Encouraged no smoking (any form of smoking posses health risks), use of alternative methods of consumption such as edibles, tinctures, and/or oils Follow-up: after genesight testing All of patient's questions were answered. She verbalizes understanding and agreement with my assessment and plan. Irwin Blount APRN.STEEL WHEEL ENGRAVER Patient ID: Marisa Santa is a 35 year old female who presents to a [facility] for follow-up Insomnia & RLS. Patient is here today alone. Interval History Patient was last seen in 11/2024. 05/15/2025 Patient here today for follow-up Insomnia and RLS management. The patient has pertinent hx of EARLENE, Insomnia, hypersomnia, obesity, seizures, RLS, headache, fibromyalgia, asthma, GERD, iron deficiency anemia, hepatitis C, scoliosis, back pain, anxiety, depression, PTSD, Bipolar, nightmares, ADD, hx of opioid & heroin use disorder in remission, marijuana use and current vapes. Patient was last seen in November 2024. Patient no-showed for the last appointment on February 18, 2025, with Dr. Reyes. She was under the impression she did not have to follow-up with him, thus the missed appointment. EARLENE: Patient has history of EARLENE, intolerance to PAP therapy. Previously tried CPAP therapy but did not tolerate it and is not currently utilizing it. Last sleep study showed mild EARLENE at 5.1/hr. Insomnia: Patient report that she is doing better with the Ambien. Still only getting 4 hours of sleep but much better quality of sleep. Her has noticed that she falls asleep quickly and is sleeping deeper at night. RLS: Reports well controlled with Gabapentin TID (600 mg). She reports that since she missed her last appointment, she received notification that her prescriptions would not be refilled till appointment was made. No lapse in medications but struggled to get refills due to No Show of apppointment. Sleep history: - Overall goals of treatment: Improve sleep quality and manage EARLENE and insomnia symptoms. - Use of PAP or prior treatments: - PAP experience: Previously tried CPAP therapy but did not tolerate it. - Current PAP usage: No Sleep study: A polysomnogram performed on 10/01/2021, which revealed an AHI of 5.1 per hour, supine index of 6.6 per hour, REM index of 15.6 per hour, LUCILA of 1, PLM index was negative, mean SpO2 of 93%, SpO2 kurt of 86%, and oxygen saturation below 88% for 0.1% (0.3 minutes) of the study.Stages of sleep noted were all 4 stages. Patient's BMI at the time of the sleep study was 35.4. Patient had a PAP titration study done on 12/04/2021, which showed none of the tested PAP settings reduced AHI to normal. Titrated during the study from 5 to 8 cm H2O. Stages of sleep noted were all 4 stages. Patient's BMI at the time of the study was 35.9. SLEEP STUDY HISTORY A Polysomnogram performed on 10/01/2021 revealed an AHI of 5.1/hr; supine index of 6.6/hr; REM index of 15.6/hr, LUCILA 1, PLM index was negative, mean SpO2 of 93%, SpO2 kurt of 86% and the oxygen saturation was below 88% for 0.1% (0.3 mins) of the study. Stage of sleep noted were all four stages. Patient BMI at time of study was 35.4. Patient had a PAP titration study on 12/04/2021 which showed that none of the tested PAP setting reduced the AHI to normal. Titrated during study from 5 to 8 cm H2O. Stage of sleep noted were all four stages. Patient BMI at time of study was 35.9. PAP ADHERENCE: Not applicable PAP COMPLIANCE DOWNLOAD: ALLERGIES Allergen Reactions Clindamycin Anaphylaxis Phenergan [Prometha* Mental Status Change Celexa [Citalopram * Unknown Doxycycline Other: See Comments Nausea, vomiting and diarrhea Effexor [Venlafaxin* Unknown Paxil [Paroxetine H* Other: See Comments Depression made worse Remeron [Mirtazapin* Other: See Comments [place] strange on it. Xanax [Alprazolam] Unknown Current Outpatient Medications Medication Sig methylPREDNISolone (MEDROL, PANTERA,) 4 mg Dose-Pack Follow dosing instructions, take with food. zolpidem (AMBIEN CR) 6.25 mg CR tablet Take 1 tablet by mouth daily at bedtime for 30 days. gabapentin (NEURONTIN) 600 mg tablet Take 1 tablet by mouth three times a day for 90 days. 1 po three times a day (noon, 5pm and bedtime) for treatment refractory RLS pain baclofen 10 mg tablet Take 1 tablet by mouth two times a day. ondansetron orally disintegrating (ZOFRAN ODT) 4 mg disintegrating tablet Take 1 tablet by mouth every 12 hours as needed for nausea/vomiting. ascorbic acid, vitamin C, (VITAMIN C) 500 mg tablet Take 1 tablet by mouth once daily. simvastatin (ZOCOR) 5 mg tablet Take 1 tablet by mouth daily at bedtime. For cholesterols albuterol HFA (PROVENTIL HFA, VENTOLIN HFA) 90 mcg/actuation inhaler Inhale 2 Puffs as instructed every 4 hours as needed for wheezing/shortness of breath. omeprazole (PRILOSEC) 40 mg capsule Take one tab 30 min prior to breakfast and dinner. lamoTRIgine (LAMICTAL) 150 mg tablet Take 150 mg by mouth twice daily. hydrOXYzine HCl (ATARAX) 50 mg tablet Take 1 tablet by mouth three times daily. albuterol HFA (VENTOLIN HFA) 90 mcg/actuation inhaler Inhale 2 Puffs as instructed every 4 hours as needed for Wheezing/Shortness of Breath. No current facility-administered medications for this visit. PERTINENT PAST MEDICAL HISTORY: See HPI PERTINENT PAST SURGICAL HISTORY for Sleep Medicine: No pertinent surgical hx noted PERTINENT FAMILY HISTORY for Sleep Medicine: There is no family history of sleep disorders. 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 Smoking: current daily smoker ETOH: No Marijuana: Yes Caffeine: Yes Active Problems, Allergy List, Medication List, and PMH/PSH/FH/Social Hx have been reviewed and reconciled in chart. No significant changes unless documented in the pertinent chart section. Updates made when necessary. VITAL SIGNS: LMP 03/21/2025 (Exact Date) BMI: There is no height or weight on file to calculate BMI. PHYSICAL EXAM: Limited telehealth examination General appearance: awake alert in NAD Affect: normal Skin: no rash on areas visible to the video HEENT: Nasal congestion absent Teeth: normal dentition Lungs: no cough. Extr: grossly normal on areas visible to the video Neuro: normal speech Iron Date Value Ref Range Status 02/02/2023 112 41 - 186 ug/dL Final Transferrin Date Value Ref Range Status 01/30/2019 249 200 - 360 mg/dL Final TIBC Date Value Ref Range Status 02/02/2023 279 232 - 386 ug/dL Final Ferritin Date Value Ref Range Status 02/02/2023 114.0 14.7 - 205.1 ng/mL Final CO2 Date Value Ref Range Status 03/27/2025 26 22 - 30 mmol/L Final TSH Date Value Ref Range Status 03/06/2024 1.960 0.270 - 4.200 mIU/L Final Comment: If the patient is , TSH reference range varies by gestational period: First Trimester (weeks 9-12): 0.180-2.990 mIU/L Second Trimester: 0.110-3.980 mIU/L Third Trimester: 0.480-4.710 mIU/L Rudolph Fox et al. A Practical Approach for the Verifications and Determination of Site- and Trimester-Specific Reference Intervals for Thyroid Function tests in . Thyroid, 2019:29:3:412-420. Corey E, et al. 2017 Guidelines of the [place] [employer] for the Diagnosis and Management of Thyroid Disease during and the . Thyroid, 2017:27:3:315-389. Patient Questionnaires Sleep Scores 12/03/2024 05/07/2025 [facility] Sleepiness Scale Score 12 (Excessive daytime sleepiness present) 8 (No clinically significant daytime sleepiness) 05/07/2025 PROMIS CAT Sleep Disturbance PROMIS Sleep Disturbance T-Score 65 (moderate) PROMIS Sleep Disturbance Percentile 7 05/07/2025 Insomnia Severity Index Score 19 12/03/2024 05/07/2025 Restless Leg Syndrome Score 28 (Severe symptoms) 13 (Moderate symptoms) 05/07/2025 PROMIS Global Health - (T-Scores - the mean of general population = 50. Five points is a clinically meaningful difference.) Physical T-Score 50.8 Mental T-Score 45.8 05/07/2025 PHQ 2 and 9 Total Scores PHQ-2 Score 2 PHQ-9 Score 10 No data to display IMPRESSION/PLAN: Marisa Santa is a 35 year old female presents today in [facility] with the following problems: Primary insomnia (F51.01) - Currently managed with Ambien 5 mg, which induces rapid sleep onset but does not maintain sleep throughout the night. - Initiated Ambien CR to extend sleep duration; if not covered by insurance, increase regular Ambien to 10 mg. - Prescriptions sent to [facility] in [place]. RLS (restless legs syndrome) (G25.81) - Managed with gabapentin 600 mg TID. - Continue current gabapentin regimen. - Refill sent over today EARLENE (obstructive sleep apnea) (G47.33) - Polysomnogram on 10/01/2021 revealed AHI of 5.1/hr, supine index of 6.6/hr, REM index of 15.6/hr, LUCILA of 1, mean SpO2 of 93%, SpO2 kurt of 86%. CPAP titration on 12/04/2021 showed no effective settings; patient did not tolerate CPAP therapy. - No current treatment at this time. - Likely untreated EARLENE is contributing to some sleep disturbance at night. Medication management (Z79.899) - Current medications include Ambien 5 mg & Gabapentin 600 mg TID. - Reviewed OARRS, no red flags noted. - Adjusted Ambien dosage as discussed. - Continue current Gabapentin as prescribed. Overweight (BMI 25.0-29.9) (E66.3) - BMI at time of last sleep study was 35.9. - Most recent documented BMI was 29.95 Excessive daytime sleepiness (G47.19) Fatigue, unspecified type (R53.83) Inadequate sleep hygiene (Z72.821) Sleep disturbance (G47.9) - Ongoing issues with sleep onset and maintenance. - Addressed through medication adjustments and sleep hygiene education. - Reinforced importance of maintaining regular sleep schedule and minimizing stimulants before bedtime. Depression, unspecified depression type (F32.A)PTSD (post-traumatic stress disorder) (F43.10) Anxiety (F41.9) - Under management by psychiatry; current medications include Strattera. - Contributing to overall mental health status and sleep disturbance. - Continue psychiatric follow-up and medication management. Current smoker (F17.200) Vapes regularly. Marijuana use (F12.90) Regular use reported. Follow-up: 3 months or sooner if needed All of patient's questions were answered. She verbalizes understanding and agreement with my assessment and plan. Electronically signed by Irwin Blount APRN.STEEL WHEEL ENGRAVER documented in this encounter [facility] 05-15-2025 Note HNO ID: [id number] Author: IRWIN BLOUNT APRN.EDITH Service: ? Author Type: Nurse Practitioner Type: Progress Notes Filed: 05/15/2025 14:28 Note Text: [facility] Virtual Visit Follow up / Established patient visit Patient: Marisa Santa : 1990 AGE: [age] year old SEX: female Provider: Irwin Blount APRN.CNP Location: NEUROLOGY Service Date: 05/15/2025 PCP: Ermias Lockwood MD I have communicated my name and active licensure. The patient's identity and physical location were verified at the time of this visit. Either the patient or their legal environmental marketing representative has been informed of the risks and benefits of -- and alternatives to -- treatment through a remote evaluation and consents to proceed with the evaluation remotely. Patient currently states they are in the [facility]. Previous Visit: 12/18/2024 [facility] for appointment on 02/18/2025 INSOMNIA + HYPERSOMNIA + EXCESSIVE DAYTIME SLEEPINESS (EDS) / FATIGUE / INADEQUATE SLEEP HYGIENE + SLEEP DISTURBANCE - due to combination of inadequate sleep hygiene, irregular sleep schedule, stress, depression, anxiety, ADHD, PTSD, untreated sleep apnea, obesity, RLS, anemia, marijuana use, caffeine use,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 INADEQUATE SLEEP HYGIENE + SLEEP DISTURBANCE - due to combination of inadequate sleep hygiene, irregular sleep schedule, stress, depression, anxiety, ADHD, PTSD, untreated sleep apnea, obesity, RLS, anemia, marijuana use, caffeine use, children, psychosocial stressors, chronic fatigue syndrome, Fibromyalgia, and chronic pain. Medications do NOT appear to be a contributing factor as well. - see HPI - current medications: Ambien - discussed with patient good sleep hygiene - Important to get good daily dose of natural sunlight to help wakefulness & energy - Reduce artificial lighting at night, especially light from screens (i.e. cellphones, TV, tablets) - Exercise is helpful for your mental and physical health - Have a consistent bedtime routine 1 hour prior to your usual bedtime - If going to take a nap, it should be less than 30 minutes and prior to 3 pm - Limit alcohol and caffeine use - Avoidance of marijuana and/or CBD use - plan to obtain Genesight, given her extensive mental health history and significant side effects to medications in the past, I recommend Genesight for better management of sleep aides - has tried sleep aides and had suicidal ideations with several of them. - would like to trial MI in the future as this is a good long-term solution for insomnia OBESITY - BMI most recently documented was 32.49 - no significant weight changes noted or reported - Encouraged patient to lose weight with diet and exercise. - Defer management to PCP OBSTRUCTIVE SLEEP APNEA (EARLENE), mild-moderate (PSG AHI: 5.1/hr with REM AHI of 15.6/hr) - EARLENE diagnosed by PSG in 09/2021. Reviewed sleep studies today in clinic See HPI. - previously tried CPAP, did not tolerate, not currently treating - may be contributing to sleep disturbances RESTLESS LEG SYNDROME (KWOK-EKBOM DISEASE) - Caffeine: daily - Smoker: vapes nicotine & THC - Exacerbating medications: - last iron studies: 02/02/2023 - currently on Gabapentin & Ropinirole - reports controlling symptoms good - continue with current plan DEPRESSION / ANXIETY screen DEPRESSION / ANXIETY / PTSD / STRESS / ADD + screens - denies any SI, HI or hallucinations - currently on medication, controlling symptoms fair - recently had changes to medication d/t significant side effects - currently taking Lamictal, Hydroxyzine and Ativan PRN - Defer management to Mental Health Team SMOKING STATUS screen SMOKING STATUS- ACTIVE current daily smoker encouraged smoking cessation at least 3 hrs prior to bedtime Patient can reach out to PCP for smoking cessation assistance MARIJUANA USE Current daily user - vapes May want to look at using CBN for sleep Encouraged no smoking (any form of smoking posses health risks), use of alternative methods of consumption such as edibles, tinctures, and/or oils Follow-up: after genesight testing All of patient's questions were answered. She verbalizes understanding and agreement with my assessment and plan. Irwin Blount APRN.[employer] documented in this encounter [facility] 04-30-2025 Telephone encounter Note HEMALATHA: 12/18/24 Levi In Person - 12/03/24 Rg CORDERO - 01/10/24 Amy F/U: 05/14/25 Levi but is being offered 05/08/25 Levi IMPRESSION/PLAN: Marisa Santa is a 34 year old female presents today in [facility] with the following problems: The patient has pertinent hx of EARLENE, Insomnia, hypersomnia, obesity, seizures, RLS, headache, fibromyalgia, asthma, GERD, iron deficiency anemia, hepatitis C, scoliosis, back pain, anxiety, depression, PTSD, Bipolar, nightmares, ADD, hx of opioid & heroin use disorder in remission, marijuana use and current vapes. INSOMNIA + HYPERSOMNIA + EXCESSIVE DAYTIME SLEEPINESS (EDS) / FATIGUE / INADEQUATE SLEEP HYGIENE + SLEEP DISTURBANCE - due to combination of inadequate sleep hygiene, irregular sleep schedule, stress, depression, anxiety, ADHD, PTSD, untreated sleep apnea, obesity, RLS, anemia, marijuana use, caffeine use, children, psychosocial stressors, chronic fatigue syndrome, Fibromyalgia, and chronic pain. Medications do NOT appear to be a contributing factor as well. - see HPI - current medications: Ambien - discussed with patient good sleep hygiene - Important to get good daily dose of natural sunlight to help wakefulness & energy - Reduce artificial lighting at night, especially light from screens (i.e. cellphones, TV, tablets) - Exercise is helpful for your mental and physical health - Have a consistent bedtime routine 1 hour prior to your usual bedtime - If going to take a nap, it should be less than 30 minutes and prior to 3 pm - Limit alcohol and caffeine use - Avoidance of marijuana and/or CBD use - plan to obtain Genesight, given her extensive mental health history and significant side effects to medications in the past, I recommend Genesight for better management of sleep aides - has tried sleep aides and had suicidal ideations with several of them. - would like to trial MI in the future as this is a good long-term solution for insomnia OBESITY - BMI most recently documented was 32.49 - no significant weight changes noted or reported - Encouraged patient to lose weight with diet and exercise. - Defer management to PCP OBSTRUCTIVE SLEEP APNEA (EARLENE), mild-moderate (PSG AHI: 5.1/hr with REM AHI of 15.6/hr) - EARLENE diagnosed by PSG in 09/2021. Reviewed sleep studies today in clinic See HPI. - previously tried CPAP, did not tolerate, not currently treating - may be contributing to sleep disturbances RESTLESS LEG SYNDROME (KWOK-EKBOM DISEASE) - Caffeine: daily - Smoker: vapes nicotine & THC - Exacerbating medications: - last iron studies: 02/02/2023 - currently on Gabapentin & Ropinirole - reports controlling symptoms good - continue with current plan DEPRESSION / ANXIETY screen DEPRESSION / ANXIETY / PTSD / STRESS / ADD + screens - denies any SI, HI or hallucinations - currently on medication, controlling symptoms fair - recently had changes to medication d/t significant side effects - currently taking Lamictal, Hydroxyzine and Ativan PRN - Defer management to Mental Health Team SMOKING STATUS screen SMOKING STATUS- ACTIVE current daily smoker encouraged smoking cessation at least 3 hrs prior to bedtime Patient can reach out to PCP for smoking cessation assistance MARIJUANA USE Current daily user - vapes May want to look at using CBN for sleep Encouraged no smoking (any form of smoking posses health risks), use of alternative methods of consumption such as edibles, tinctures, and/or oils Follow-up: after genesight testing All of patient's questions were answered. She verbalizes understanding and agreement with my assessment and plan. Irwin Blount APRN.EDITH [facility] 04-27-2025 Telephone encounter Note Please tell pt, yes, the rules are the same for me as for Irwin Blount. Pt didn't show for appointment with Dr Reyes after she was seen by GRANT Blount. She needs to follow up with one of them in order to continue gabapentin. Minna Diez APRN.EDITH [facility] Work Phone: 04-27-2025 Miscellaneous Notes Please tell pt, yes, the rules are the same for me as for Irwin Blount. Pt didn't show for appointment with Dr Reyes after she was seen by GRANT Blount. She needs to follow up with one of them in order to continue gabapentin. Minna Diez APRN.EDITH Please see refill request from 04/23. Basil Blount approved 7 day supply notifying patient as on controlled substances will need to follow up. HEMALATHA (VV) 12/18/24 with Basil Blount. ZENAIDA Padron documented in this encounter [facility] 04-27-2025 Telephone encounter Note Please see refill request from 04/23. Basil Blount approved 7 day supply notifying patient as on controlled substances will need to follow up. HEMALATHA (VV) 12/18/24 with Basil Blount. ZENAIDA Padron [facility] 04-27-2025 Telephone encounter Note Meddle message sent to patient. [facility] 04-27-2025 Miscellaneous Notes Myntrahart message sent to patient. CONTROLLED SUBSTANCE HPI Current medications: Ambien 5 mg at bedtime Date of last refill: 03/26/2025 (30 day) 04/24/2025 (7 day supply d/t no follow-up appointment scheduled) Patient has follow-up appointment schedule: Yes on 05/14/2025 [facility] appt on 02/18/2025 Last note/visit: 12/18/2024 Last visit in-person: 12/03/2024 Last Visit with Physician: 01/10/2024 Reviewed note today: Yes OARRS: Yes, reviewed and No discrepancies I have personally reviewed the OARRS report for Marisa Santa. I have considered the risks of abuse, dependence, addiction and diversion and I believe that it is clinically appropriate for Marisa Santa to be prescribed this medication. Is the patient prescribed a combination of benzodiazepine and opioid? No Controlled substance agreement: Date of the last agreement: none on file for sleep medicine Date of last urine drug screen: 01/2019 Results of last urine drug screen: greater than 5 years Ordered urine drug screen today: No - recommend discussion with patient at next visit Okay for refill. HEMALATHA: 12/18/24, Levi In Person: 12/03/24, Rg CORDERO: 01/10/24, Amy Jacques: 05/14/25, Rg IMPRESSION/PLAN: Marisa Santa is a 34 year old female presents today in [facility] with the following problems: The patient has pertinent hx of EARLENE, Insomnia, hypersomnia, obesity, seizures, RLS, headache, fibromyalgia, asthma, GERD, iron deficiency anemia, hepatitis C, scoliosis, back pain, anxiety, depression, PTSD, Bipolar, nightmares, ADD, hx of opioid & heroin use disorder in remission, marijuana use and current vapes. INSOMNIA + HYPERSOMNIA + EXCESSIVE DAYTIME SLEEPINESS (EDS) / FATIGUE / INADEQUATE SLEEP HYGIENE + SLEEP DISTURBANCE - due to combination of inadequate sleep hygiene, irregular sleep schedule, stress, depression, anxiety, ADHD, PTSD, untreated sleep apnea, obesity, RLS, anemia, marijuana use, caffeine use, children, psychosocial stressors, chronic fatigue syndrome, Fibromyalgia, and chronic pain. Medications do NOT appear to be a contributing factor as well. - see HPI - current medications: Ambien - discussed with patient good sleep hygiene - Important to get good daily dose of natural sunlight to help wakefulness & energy - Reduce artificial lighting at night, especially light from screens (i.e. cellphones, TV, tablets) - Exercise is helpful for your mental and physical health - Have a consistent bedtime routine 1 hour prior to your usual bedtime - If going to take a nap, it should be less than 30 minutes and prior to 3 pm - Limit alcohol and caffeine use - Avoidance of marijuana and/or CBD use - plan to obtain Genesight, given her extensive mental health history and significant side effects to medications in the past, I recommend Genesight for better management of sleep aides - has tried sleep aides and had suicidal ideations with several of them. - would like to trial MI in the future as this is a good long-term solution for insomnia OBESITY - BMI most recently documented was 32.49 - no significant weight changes noted or reported - Encouraged patient to lose weight with diet and exercise. - Defer management to PCP OBSTRUCTIVE SLEEP APNEA (EARLENE), mild-moderate (PSG AHI: 5.1/hr with REM AHI of 15.6/hr) - EARLENE diagnosed by PSG in 09/2021. Reviewed sleep studies today in clinic See HPI. - previously tried CPAP, did not tolerate, not currently treating - may be contributing to sleep disturbances RESTLESS LEG SYNDROME (KWOK-EKBOM DISEASE) - Caffeine: daily - Smoker: vapes nicotine & THC - Exacerbating medications: - last iron studies: 02/02/2023 - currently on Gabapentin & Ropinirole - reports controlling symptoms good - continue with current plan DEPRESSION / ANXIETY screen DEPRESSION / ANXIETY / PTSD / STRESS / ADD + screens - denies any SI, HI or hallucinations - currently on medication, controlling symptoms fair - recently had changes to medication d/t significant side effects - currently taking Lamictal, Hydroxyzine and Ativan PRN - Defer management to Mental Health Team SMOKING STATUS screen SMOKING STATUS- ACTIVE current daily smoker encouraged smoking cessation at least 3 hrs prior to bedtime Patient can reach out to PCP for smoking cessation assistance MARIJUANA USE Current daily user - vapes May want to look at using CBN for sleep Encouraged no smoking (any form of smoking posses health risks), use of alternative methods of consumption such as edibles, tinctures, and/or oils Follow-up: after genesight testing All of patient's questions were answered. She verbalizes understanding and agreement with my assessment and plan. Irwin Blount APRN.[employer] ENGRAVER documented in this encounter [facility] 04-27-2025 Telephone encounter Note CONTROLLED SUBSTANCE HPI Current medications: Ambien 5 mg at bedtime Date of last refill: 03/26/2025 (30 day) 04/24/2025 (7 day supply d/t no follow-up appointment scheduled) Patient has follow-up appointment schedule: Yes on 05/14/2025 [facility] appt on 02/18/2025 Last note/visit: 12/18/2024 Last visit in-person: 12/03/2024 Last Visit with Physician: 01/10/2024 Reviewed note today: Yes OARRS: Yes, reviewed and No discrepancies I have personally reviewed the OARRS report for Marisa Santa. I have considered the risks of abuse, dependence, addiction and diversion and I believe that it is clinically appropriate for Marisa Santa to be prescribed this medication. Is the patient prescribed a combination of benzodiazepine and opioid? No Controlled substance agreement: Date of the last agreement: none on file for sleep medicine Date of last urine drug screen: 01/2019 Results of last urine drug screen: greater than 5 years Ordered urine drug screen today: No - recommend discussion with patient at next visit Okay for refill. [facility] 04-27-2025 Telephone encounter Note HEMALATHA: 12/18/24, Levi In Person: 12/03/24, Rg CORDERO: 01/10/24, Amy F/U: 05/14/25, Rg IMPRESSION/PLAN: Marisa Santa is a 34 year old female presents today in [facility] with the following problems: The patient has pertinent hx of EARLENE, Insomnia, hypersomnia, obesity, seizures, RLS, headache, fibromyalgia, asthma, GERD, iron deficiency anemia, hepatitis C, scoliosis, back pain, anxiety, depression, PTSD, Bipolar, nightmares, ADD, hx of opioid & heroin use disorder in remission, marijuana use and current vapes. INSOMNIA + HYPERSOMNIA + EXCESSIVE DAYTIME SLEEPINESS (EDS) / FATIGUE / INADEQUATE SLEEP HYGIENE + SLEEP DISTURBANCE - due to combination of inadequate sleep hygiene, irregular sleep schedule, stress, depression, anxiety, ADHD, PTSD, untreated sleep apnea, obesity, RLS, anemia, marijuana use, caffeine use, children, psychosocial stressors, chronic fatigue syndrome, Fibromyalgia, and chronic pain. Medications do NOT appear to be a contributing factor as well. - see HPI - current medications: Ambien - discussed with patient good sleep hygiene - Important to get good daily dose of natural sunlight to help wakefulness & energy - Reduce artificial lighting at night, especially light from screens (i.e. cellphones, TV, tablets) - Exercise is helpful for your mental and physical health - Have a consistent bedtime routine 1 hour prior to your usual bedtime - If going to take a nap, it should be less than 30 minutes and prior to 3 pm - Limit alcohol and caffeine use - Avoidance of marijuana and/or CBD use - plan to obtain Genesight, given her extensive mental health history and significant side effects to medications in the past, I recommend Genesight for better management of sleep aides - has tried sleep aides and had suicidal ideations with several of them. - would like to trial MI in the future as this is a good long-term solution for insomnia OBESITY - BMI most recently documented was 32.49 - no significant weight changes noted or reported - Encouraged patient to lose weight with diet and exercise. - Defer management to PCP OBSTRUCTIVE SLEEP APNEA (EARLENE), mild-moderate (PSG AHI: 5.1/hr with REM AHI of 15.6/hr) - EARLENE diagnosed by PSG in 09/2021. Reviewed sleep studies today in clinic See HPI. - previously tried CPAP, did not tolerate, not currently treating - may be contributing to sleep disturbances RESTLESS LEG SYNDROME (KWOK-EKBOM DISEASE) - Caffeine: daily - Smoker: vapes nicotine & THC - Exacerbating medications: - last iron studies: 02/02/2023 - currently on Gabapentin & Ropinirole - reports controlling symptoms good - continue with current plan DEPRESSION / ANXIETY screen DEPRESSION / ANXIETY / PTSD / STRESS / ADD + screens - denies any SI, HI or hallucinations - currently on medication, controlling symptoms fair - recently had changes to medication d/t significant side effects - currently taking Lamictal, Hydroxyzine and Ativan PRN - Defer management to Mental Health Team SMOKING STATUS screen SMOKING STATUS- ACTIVE current daily smoker encouraged smoking cessation at least 3 hrs prior to bedtime Patient can reach out to PCP for smoking cessation assistance MARIJUANA USE Current daily user - vapes May want to look at using CBN for sleep Encouraged no smoking (any form of smoking posses health risks), use of alternative methods of consumption such as edibles, tinctures, and/or oils Follow-up: after genesight testing All of patient's questions were answered. She verbalizes understanding and agreement with my assessment and plan. Irwin Blount APRN.STEEL WHEEL ENGRAVER T [facility] 04-24-2025 Telephone encounter Note Patient needs to schedule follow-up appointment. Currently on controlled substances, will given 7 day script to allow patient to schedule follow-up as soon as possible with first available provider. T [facility] 04-24-2025 Miscellaneous Notes Patient needs to schedule follow-up appointment. Currently on controlled substances, will given 7 day script to allow patient to schedule follow-up as soon as possible with first available provider. HEMALATHA: 12/18/24 Levi In Person - 12/03/24 Rg CORDERO - 01/10/24 Amy F/U: N/A Meddle message sent to patient IMPRESSION/PLAN: Marisa Santa is a 34 year old female presents today in [facility] with the following problems: The patient has pertinent hx of EARLENE, Insomnia, hypersomnia, obesity, seizures, RLS, headache, fibromyalgia, asthma, GERD, iron deficiency anemia, hepatitis C, scoliosis, back pain, anxiety, depression, PTSD, Bipolar, nightmares, ADD, hx of opioid & heroin use disorder in remission, marijuana use and current vapes. INSOMNIA + HYPERSOMNIA + EXCESSIVE DAYTIME SLEEPINESS (EDS) / FATIGUE / INADEQUATE SLEEP HYGIENE + SLEEP DISTURBANCE - due to combination of inadequate sleep hygiene, irregular sleep schedule, stress, depression, anxiety, ADHD, PTSD, untreated sleep apnea, obesity, RLS, anemia, marijuana use, caffeine use, children, psychosocial stressors, chronic fatigue syndrome, Fibromyalgia, and chronic pain. Medications do NOT appear to be a contributing factor as well. - see HPI - current medications: Ambien - discussed with patient good sleep hygiene - Important to get good daily dose of natural sunlight to help wakefulness & energy - Reduce artificial lighting at night, especially light from screens (i.e. cellphones, TV, tablets) - Exercise is helpful for your mental and physical health - Have a consistent bedtime routine 1 hour prior to your usual bedtime - If going to take a nap, it should be less than 30 minutes and prior to 3 pm - Limit alcohol and caffeine use - Avoidance of marijuana and/or CBD use - plan to obtain Genesight, given her extensive mental health history and significant side effects to medications in the past, I recommend Genesight for better management of sleep aides - has tried sleep aides and had suicidal ideations with several of them. - would like to trial MI in the future as this is a good long-term solution for insomnia OBESITY - BMI most recently documented was 32.49 - no significant weight changes noted or reported - Encouraged patient to lose weight with diet and exercise. - Defer management to PCP OBSTRUCTIVE SLEEP APNEA (EARLENE), mild-moderate (PSG AHI: 5.1/hr with REM AHI of 15.6/hr) - EARLENE diagnosed by PSG in 09/2021. Reviewed sleep studies today in clinic See HPI. - previously tried CPAP, did not tolerate, not currently treating - may be contributing to sleep disturbances RESTLESS LEG SYNDROME (KWOK-EKBOM DISEASE) - Caffeine: daily - Smoker: vapes nicotine & THC - Exacerbating medications: - last iron studies: 02/02/2023 - currently on Gabapentin & Ropinirole - reports controlling symptoms good - continue with current plan DEPRESSION / ANXIETY screen DEPRESSION / ANXIETY / PTSD / STRESS / ADD + screens - denies any SI, HI or hallucinations - currently on medication, controlling symptoms fair - recently had changes to medication d/t significant side effects - currently taking Lamictal, Hydroxyzine and Ativan PRN - Defer management to Mental Health Team SMOKING STATUS screen SMOKING STATUS- ACTIVE current daily smoker encouraged smoking cessation at least 3 hrs prior to bedtime Patient can reach out to PCP for smoking cessation assistance MARIJUANA USE Current daily user - vapes May want to look at using CBN for sleep Encouraged no smoking (any form of smoking posses health risks), use of alternative methods of consumption such as edibles, tinctures, and/or oils Follow-up: after genesight testing All of patient's questions were answered. She verbalizes understanding and agreement with my assessment and plan. Irwin Blount APRN.STEEL WHEEL ENGRAVER documented in this encounter [facility] 04-24-2025 Telephone encounter Note Patient needs to schedule follow-up appointment. Currently on controlled substances, will given 7 day script to allow patient to schedule follow-up as soon as possible with first available provider. [facility] 04-24-2025 Miscellaneous Notes Patient needs to schedule follow-up appointment. Currently on controlled substances, will given 7 day script to allow patient to schedule follow-up as soon as possible with first available provider. HEMALATHA: 12/18/24 Levi In Person - 12/03/24 Rg CORDERO - 01/10/24 Amy F/U: N/A Meddle message sent to patient IMPRESSION/PLAN: Marisa Santa is a 34 year old female presents today in [facility] with the following problems: The patient has pertinent hx of EARLENE, Insomnia, hypersomnia, obesity, seizures, RLS, headache, fibromyalgia, asthma, GERD, iron deficiency anemia, hepatitis C, scoliosis, back pain, anxiety, depression, PTSD, Bipolar, nightmares, ADD, hx of opioid & heroin use disorder in remission, marijuana use and current vapes. INSOMNIA + HYPERSOMNIA + EXCESSIVE DAYTIME SLEEPINESS (EDS) / FATIGUE / INADEQUATE SLEEP HYGIENE + SLEEP DISTURBANCE - due to combination of inadequate sleep hygiene, irregular sleep schedule, stress, depression, anxiety, ADHD, PTSD, untreated sleep apnea, obesity, RLS, anemia, marijuana use, caffeine use, children, psychosocial stressors, chronic fatigue syndrome, Fibromyalgia, and chronic pain. Medications do NOT appear to be a contributing factor as well. - see HPI - current medications: Ambien - discussed with patient good sleep hygiene - Important to get good daily dose of natural sunlight to help wakefulness & energy - Reduce artificial lighting at night, especially light from screens (i.e. cellphones, TV, tablets) - Exercise is helpful for your mental and physical health - Have a consistent bedtime routine 1 hour prior to your usual bedtime - If going to take a nap, it should be less than 30 minutes and prior to 3 pm - Limit alcohol and caffeine use - Avoidance of marijuana and/or CBD use - plan to obtain Genesight, given her extensive mental health history and significant side effects to medications in the past, I recommend Genesight for better management of sleep aides - has tried sleep aides and had suicidal ideations with several of them. - would like to trial MI in the future as this is a good long-term solution for insomnia OBESITY - BMI most recently documented was 32.49 - no significant weight changes noted or reported - Encouraged patient to lose weight with diet and exercise. - Defer management to PCP OBSTRUCTIVE SLEEP APNEA (EARLENE), mild-moderate (PSG AHI: 5.1/hr with REM AHI of 15.6/hr) - EARLENE diagnosed by PSG in 09/2021. Reviewed sleep studies today in clinic See HPI. - previously tried CPAP, did not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 is less likely for the following reason(s): HANDP not suggestive Procedures [facility] 02-04-2025 History of Present illness Narrative Images from the original note were not included. [facility] Subjective Marisa Santa is a 35 year old female. Patient presents with: Dog Bite: x today, right arm, right leg and lower right abdominal area Patient was visiting her aunt this morning and was bitten by her pitbull dog. She has abrasions on the right forearm and right sarkar. Her primary injury is on the right lower abdomen which has abrasion but was also pinched during the bite. Clothing on the sleeve, torso, and legs were not torn. She has cleansed the wounds. Denies numbness, weakness, or pain with arm or leg range of motion. She took a dual action pain reliever which has reduced her pain. Last known tetanus booster was in 2018. Review of Systems Objective BP 124/78 Pulse 90 Temp 36.7 C (98 F) Resp 16 Wt 75 kg (165 lb 5.5 oz) LMP 12/20/2024 (Exact Date) SpO2 99% BMI 30.24 kg/m Physical Exam Constitutional: Appearance: She is not ill-appearing. Cardiovascular: Rate and Rhythm: Normal rate and regular rhythm. Pulmonary: Effort: Pulmonary effort is normal. Breath sounds: Normal breath sounds. Musculoskeletal: Right forearm: Tenderness (Tenderness right forearm at site of abrasion) present. No swelling, deformity, lacerations or bony tenderness. Right wrist: Normal range of motion. Skin: Comments: Shallow abrasions right dorsal forearm and right anterior mid sarkar. 2 cm abrasion within 10 cm area of contusion and shallow abrasion in the right lower abdominal pannus. Neurological: Mental Status: She is alert. Gait: Gait normal. {ASSESSMENT/PLAN: 1. Dog bite of abdomen - ICD9: 879.2, E906.0, ICD10: S31.159A, W54.0XXA (primary diagnosis) 2. Dog bite of forearm, right, initial encounter - ICD9: 881.00, E906.0, ICD10: S51.851A, W54.0XXA 3. Dog bite of lower leg, right, initial encounter - ICD9: 891.0, E906.0, ICD10: S81.851A, W54.0XXA - TDAP VACCINE, AGE 7+ YR (ADACEL, BOOSTRIX) administered No wound closure required for abrasions/contusion. Areas of injury are low risk for infection from dog bite abrasion. Expectant management/supportive care. Follow up with signs of infection such as increasing redness, pain, swelling, purulent drainage, or fever/malaise. Animal bite form sent to the [facility] Dept. Steven Leonard MD Differential Diagnoses - abrasion is more likely for the following reason(s): suggested by H&P - compartment syndrome is less likely for the following reason(s): H&P not suggestive - fracture/foreign body is less likely for the following reason(s): H&P not suggestive Procedures documented in this encounter [facility] 02-04-2025 Telephone encounter Note Pt calling in as she states she got bit by a dog this morning. States it didn't break the skin too bad but does have small open area. Looks bruised. Per [facility], last tetanus shot was 04/2015. Pt [facility] to [facility]. [facility] 02-04-2025 Miscellaneous Notes Pt calling in as she states she got bit by a dog this morning. States it didn't break the skin too bad but does have small open area. Looks bruised. Per [facility], last tetanus shot was 04/2015. Pt instructed to come in to [facility]. documented in this encounter [facility] 01-20-2025 Telephone encounter Note The following approved medication requests have been transmitted electronically. Requested Prescriptions Signed Prescriptions Disp Refills ondansetron orally disintegrating (ZOFRAN ODT) 4 mg disintegrating tablet 20 tablet 0 Sig: Take 1 tablet by mouth every 12 hours as needed for nausea/vomiting. Authorizing Provider: ERMIAS LOCKWOOD MD [facility] 01-20-2025 Miscellaneous Notes The following approved medication requests have been transmitted electronically. Requested Prescriptions Signed Prescriptions Disp Refills ondansetron orally disintegrating (ZOFRAN ODT) 4 mg disintegrating tablet 20 tablet 0 Sig: Take 1 tablet by mouth every 12 hours as needed for nausea/vomiting. Authorizing Provider: ERMIAS LOCKWOOD MD Pt is scheduled for a physical 01/26/25 with Chuck. Pt notified of same and that only 20 tablets will be sent to pharm until she has her appointment. Please file order. Bishop Henley LPN Let patient know refill for zofran only sent for 20 tabs. Looking in records she ws to schedule a complete PE in Nov 2024 and appears she never did. Needs complete PE set up within [facility]. The following approved medication requests have been transmitted electronically. Requested Prescriptions Pending Prescriptions Disp Refills ondansetron orally disintegrating (ZOFRAN ODT) 4 mg disintegrating tablet 20 tablet 0 Sig: Take 1 tablet by mouth every 12 hours as needed for nausea/vomiting. Ermias Lockwood MD Prescription Refill Information The patient has been identified by name and date of : Yes Caregiver verified no other encounters exist for this prescription request: Yes Caregiver confirmed with patient/requestor that no other refills are due, in the near future, with this provider at this time: Yes The last office visit in the department: 11/07/24 Does the patient have a future office visit with this provider/department: No Requested Prescriptions Pending Prescriptions Disp Refills ondansetron orally disintegrating (ZOFRAN ODT) 4 mg disintegrating tablet 60 tablet 1 Sig: Take 1 tablet by mouth every 12 hours as needed for nausea/vomiting. Bishop Henley LPN January 16, 2025 12:41 PM documented in this encounter [facility] 01-20-2025 Telephone encounter Note Pt is scheduled for a physical 01/26/25 with Chuck. Pt notified of same and that only 20 tablets will be sent to pharm until she has her appointment. Please file order. Bishop Henley LPN [facility] 01-16-2025 Telephone encounter Note Okay for refill on vitamin c [facility] 01-16-2025 Miscellaneous Notes Okay for refill on vitamin c HEMALATHA: 12/18/24 In Person - 12/03/24 MD Misael Reyes F/U: 02/18/25 IMPRESSION/PLAN: Marisa Santa is a 34 year old female presents today in [facility] with the following problems: The patient has pertinent hx of EARLENE, Insomnia, hypersomnia, obesity, seizures, RLS, headache, fibromyalgia, asthma, GERD, iron deficiency anemia, hepatitis C, scoliosis, back pain, anxiety, depression, PTSD, Bipolar, nightmares, ADD, hx of opioid & heroin use disorder in remission, marijuana use and current vapes. INSOMNIA + HYPERSOMNIA + EXCESSIVE DAYTIME SLEEPINESS (EDS) / FATIGUE / INADEQUATE SLEEP HYGIENE + SLEEP DISTURBANCE - due to combination of inadequate sleep hygiene, irregular sleep schedule, stress, depression, anxiety, ADHD, PTSD, untreated sleep apnea, obesity, RLS, anemia, marijuana use, caffeine use, children, psychosocial stressors, chronic fatigue syndrome, Fibromyalgia, and chronic pain. Medications do NOT appear to be a contributing factor as well. - see HPI - current medications: Ambien - discussed with patient good sleep hygiene - Important to get good daily dose of natural sunlight to help wakefulness & energy - Reduce artificial lighting at night, especially light from screens (i.e. cellphones, TV, tablets) - Exercise is helpful for your mental and physical health - Have a consistent bedtime routine 1 hour prior to your usual bedtime - If going to take a nap, it should be less than 30 minutes and prior to 3 pm - Limit alcohol and caffeine use - Avoidance of marijuana and/or CBD use - plan to obtain Genesight, given her extensive mental health history and significant side effects to medications in the past, I recommend Genesight for better management of sleep aides - has tried sleep aides and had suicidal ideations with several of them. - would like to trial MI in the future as this is a good long-term solution for insomnia OBESITY - BMI most recently documented was 32.49 - no significant weight changes noted or reported - Encouraged patient to lose weight with diet and exercise. - Defer management to PCP OBSTRUCTIVE SLEEP APNEA (EARLENE), mild-moderate (PSG AHI: 5.1/hr with REM AHI of 15.6/hr) - EARLENE diagnosed by PSG in 09/2021. Reviewed sleep studies today in clinic See HPI. - previously tried CPAP, did not tolerate, not currently treating - may be contributing to sleep disturbances RESTLESS LEG SYNDROME (KWOK-EKBOM DISEASE) - Caffeine: daily - Smoker: vapes nicotine & THC - Exacerbating medications: - last iron studies: 02/02/2023 - currently on Gabapentin & Ropinirole - reports controlling symptoms good - continue with current plan DEPRESSION / ANXIETY screen DEPRESSION / ANXIETY / PTSD / STRESS / ADD + screens - denies any SI, HI or hallucinations - currently on medication, controlling symptoms fair - recently had changes to medication d/t significant side effects - currently taking Lamictal, Hydroxyzine and Ativan PRN - Defer management to Mental Health Team SMOKING STATUS screen SMOKING STATUS- ACTIVE current daily smoker encouraged smoking cessation at least 3 hrs prior to bedtime Patient can reach out to PCP for smoking cessation assistance MARIJUANA USE Current daily user - vapes May want to look at using CBN for sleep Encouraged no smoking (any form of smoking posses health risks), use of alternative methods of consumption such as edibles, tinctures, and/or oils Follow-up: after genesight testing All of patient's questions were answered. She verbalizes understanding and agreement with my assessment and plan. Irwin Blount APRN.STEEL WHEEL ENGRAVER documented in this encounter [facility] 01-16-2025 Telephone encounter Note HEMALATHA: 12/18/24 In Person - 12/03/24 MD Misael Reyes F/U: 02/18/25 IMPRESSION/PLAN: Marisa Santa is a 34 year old female presents today in [facility] with the following problems: The patient has pertinent hx of EARLENE, Insomnia, hypersomnia, obesity, seizures, RLS, headache, fibromyalgia, asthma, GERD, iron deficiency anemia, hepatitis C, scoliosis, back pain, anxiety, depression, PTSD, Bipolar, nightmares, ADD, hx of opioid & heroin use disorder in remission, marijuana use and current vapes. INSOMNIA + HYPERSOMNIA + EXCESSIVE DAYTIME SLEEPINESS (EDS) / FATIGUE / INADEQUATE SLEEP HYGIENE + SLEEP DISTURBANCE - due to combination of inadequate sleep hygiene, irregular sleep schedule, stress, depression, anxiety, ADHD, PTSD, untreated sleep apnea, obesity, RLS, anemia, marijuana use, caffeine use, children, psychosocial stressors, chronic fatigue syndrome, Fibromyalgia, and chronic pain. Medications do NOT appear to be a contributing factor as well. - see HPI - current medications: Ambien - discussed with patient good sleep hygiene - Important to get good daily dose of natural sunlight to help wakefulness & energy - Reduce artificial lighting at night, especially light from screens (i.e. cellphones, TV, tablets) - Exercise is helpful for your mental and physical health - Have a consistent bedtime routine 1 hour prior to your usual bedtime - If going to take a nap, it should be less than 30 minutes and prior to 3 pm - Limit alcohol and caffeine use - Avoidance of marijuana and/or CBD use - plan to obtain Genesight, given her extensive mental health history and significant side effects to medications in the past, I recommend Genesight for better management of sleep aides - has tried sleep aides and had suicidal ideations with several of them. - would like to trial MI in the future as this is a good long-term solution for insomnia OBESITY - BMI most recently documented was 32.49 - no significant weight changes noted or reported - Encouraged patient to lose weight with diet and exercise. - Defer management to PCP OBSTRUCTIVE SLEEP APNEA (EARLENE), mild-moderate (PSG AHI: 5.1/hr with REM AHI of 15.6/hr) - EARLENE diagnosed by PSG in 09/2021. Reviewed sleep studies today in clinic See HPI. - previously tried CPAP, did not tolerate, not currently treating - may be contributing to sleep disturbances RESTLESS LEG SYNDROME (KWOK-EKBOM DISEASE) - Caffeine: daily - Smoker: vapes nicotine & THC - Exacerbating medications: - last iron studies: 02/02/2023 - currently on Gabapentin & Ropinirole - reports controlling symptoms good - continue with current plan DEPRESSION / ANXIETY screen DEPRESSION / ANXIETY / PTSD / STRESS / ADD + screens - denies any SI, HI or hallucinations - currently on medication, controlling symptoms fair - recently had changes to medication d/t significant side effects - currently taking Lamictal, Hydroxyzine and Ativan PRN - Defer management to Mental Health Team SMOKING STATUS screen SMOKING STATUS- ACTIVE current daily smoker encouraged smoking cessation at least 3 hrs prior to bedtime Patient can reach out to PCP for smoking cessation assistance MARIJUANA USE Current daily user - vapes May want to look at using CBN for sleep Encouraged no smoking (any form of smoking posses health risks), use of alternative methods of consumption such as edibles, tinctures, and/or oils Follow-up: after genesight testing All of patient's questions were answered. She verbalizes understanding and agreement with my assessment and plan. Irwin Blount APRN.STEEL WHEEL ENGRAVER [facility] Work Phone: 01-16-2025 Telephone encounter Note CONTROLLED SUBSTANCE HPI Current medications: Ambien 5 mg at bedtime Date of last refill: 12/30/2024 Patient has follow-up appointment schedule: Yes on 02/18/2025 Last note/visit: 12/18/2024 Last visit in-person: 12/03/2024 Last Visit with Physician: 01/10/2024 Reviewed note today: Yes OARRS: Yes, reviewed and No discrepancies I have personally reviewed the OARRS report for Marisa Santa. I have considered the risks of abuse, dependence, addiction and diversion and I believe that it is clinically appropriate for Marisa Santa to be prescribed this medication. Is the patient prescribed a combination of benzodiazepine and opioid? No Controlled substance agreement: Date of the last agreement: none on file Date of last urine drug screen: 01/30/2019 Results of last urine drug screen: greater than 2 years old Ordered urine drug screen today: No Okay for refill. [facility] 01-16-2025 Miscellaneous Notes CONTROLLED SUBSTANCE HPI Current medications: Ambien 5 mg at bedtime Date of last refill: 12/30/2024 Patient has follow-up appointment schedule: Yes on 02/18/2025 Last note/visit: 12/18/2024 Last visit in-person: 12/03/2024 Last Visit with Physician: 01/10/2024 Reviewed note today: Yes OARRS: Yes, reviewed and No discrepancies I have personally reviewed the OARRS report for Marisa Santa. I have considered the risks of abuse, dependence, addiction and diversion and I believe that it is clinically appropriate for Marisa Santa to be prescribed this medication. Is the patient prescribed a combination of benzodiazepine and opioid? No Controlled substance agreement: Date of the last agreement: none on file Date of last urine drug screen: 01/30/2019 Results of last urine drug screen: greater than 2 years old Ordered urine drug screen today: No Okay for refill. HEMALATHA: 12/18/24 In Person - 12/03/24 MD Misael Reyes F/U: 02/18/25 IMPRESSION/PLAN: Marisa Santa is a 34 year old female presents today in [facility] with the following problems: The patient has pertinent hx of EARLENE, Insomnia, hypersomnia, obesity, seizures, RLS, headache, fibromyalgia, asthma, GERD, iron deficiency anemia, hepatitis C, scoliosis, back pain, anxiety, depression, PTSD, Bipolar, nightmares, ADD, hx of opioid & heroin use disorder in remission, marijuana use and current vapes. INSOMNIA + HYPERSOMNIA + EXCESSIVE DAYTIME SLEEPINESS (EDS) / FATIGUE / INADEQUATE SLEEP HYGIENE + SLEEP DISTURBANCE - due to combination of inadequate sleep hygiene, irregular sleep schedule, stress, depression, anxiety, ADHD, PTSD, untreated sleep apnea, obesity, RLS, anemia, marijuana use, caffeine use, children, psychosocial stressors, chronic fatigue syndrome, Fibromyalgia, and chronic pain. Medications do NOT appear to be a contributing factor as well. - see HPI - current medications: Ambien - discussed with patient good sleep hygiene - Important to get good daily dose of natural sunlight to help wakefulness & energy - Reduce artificial lighting at night, especially light from screens (i.e. cellphones, TV, tablets) - Exercise is helpful for your mental and physical health - Have a consistent bedtime routine 1 hour prior to your usual bedtime - If going to take a nap, it should be less than 30 minutes and prior to 3 pm - Limit alcohol and caffeine use - Avoidance of marijuana and/or CBD use - plan to obtain Genesight, given her extensive mental health history and significant side effects to medications in the past, I recommend Genesight for better management of sleep aides - has tried sleep aides and had suicidal ideations with several of them. - would like to trial MI in the future as this is a good long-term solution for insomnia OBESITY - BMI most recently documented was 32.49 - no significant weight changes noted or reported - Encouraged patient to lose weight with diet and exercise. - Defer management to PCP OBSTRUCTIVE SLEEP APNEA (EARLENE), mild-moderate (PSG AHI: 5.1/hr with REM AHI of 15.6/hr) - EARLENE diagnosed by PSG in 09/2021. Reviewed sleep studies today in clinic See HPI. - previously tried CPAP, did not tolerate, not currently treating - may be contributing to sleep disturbances RESTLESS LEG SYNDROME (KWOK-EKBOM DISEASE) - Caffeine: daily - Smoker: vapes nicotine & THC - Exacerbating medications: - last iron studies: 02/02/2023 - currently on Gabapentin & Ropinirole - reports controlling symptoms good - continue with current plan DEPRESSION / ANXIETY screen DEPRESSION / ANXIETY / PTSD / STRESS / ADD + screens - denies any SI, HI or hallucinations - currently on medication, controlling symptoms fair - recently had changes to medication d/t significant side effects - currently taking Lamictal, Hydroxyzine and Ativan PRN - Defer management to Mental Health Team SMOKING STATUS screen SMOKING STATUS- ACTIVE current daily smoker encouraged smoking cessation at least 3 hrs prior to bedtime Patient can reach out to PCP for smoking cessation assistance MARIJUANA USE Current daily user - vapes May want to look at using CBN for sleep Encouraged no smoking (any form of smoking posses health risks), use of alternative methods of consumption such as edibles, tinctures, and/or oils Follow-up: after genesight testing All of patient's questions were answered. She verbalizes understanding and agreement with my assessment and plan. Irwin Blount APRN.STEEL WHEEL ENGRAVER documented in this encounter [facility] 01-16-2025 Telephone encounter Note Let patient know refill for zofran only sent for 20 tabs. Looking in records she ws to schedule a complete PE in Nov 2024 and appears she never did. Needs complete PE set up within [facility]. The following approved medication requests have been transmitted electronically. Requested Prescriptions Pending Prescriptions Disp Refills ondansetron orally disintegrating (ZOFRAN ODT) 4 mg disintegrating tablet 20 tablet 0 Sig: Take 1 tablet by mouth every 12 hours as needed for nausea/vomiting. Ermias Lockwood MD [facility] 01-16-2025 Telephone encounter Note HEMALATHA: 12/18/24 In Person - 12/03/24 MD Misael Reyes F/U: 02/18/25 IMPRESSION/PLAN: Marisa Santa is a 34 year old female presents today in [facility] with the following problems: The patient has pertinent hx of EARLENE, Insomnia, hypersomnia, obesity, seizures, RLS, headache, fibromyalgia, asthma, GERD, iron deficiency anemia, hepatitis C, scoliosis, back pain, anxiety, depression, PTSD, Bipolar, nightmares, ADD, hx of opioid & heroin use disorder in remission, marijuana use and current vapes. INSOMNIA + HYPERSOMNIA + EXCESSIVE DAYTIME SLEEPINESS (EDS) / FATIGUE / INADEQUATE SLEEP HYGIENE + SLEEP DISTURBANCE - due to combination of inadequate sleep hygiene, irregular sleep schedule, stress, depression, anxiety, ADHD, PTSD, untreated sleep apnea, obesity, RLS, anemia, marijuana use, caffeine use, children, psychosocial stressors, chronic fatigue syndrome, Fibromyalgia, and chronic pain. Medications do NOT appear to be a contributing factor as well. - see HPI - current medications: Ambien - discussed with patient good sleep hygiene - Important to get good daily dose of natural sunlight to help wakefulness & energy - Reduce artificial lighting at night, especially light from screens (i.e. cellphones, TV, tablets) - Exercise is helpful for your mental and physical health - Have a consistent bedtime routine 1 hour prior to your usual bedtime - If going to take a nap, it should be less than 30 minutes and prior to 3 pm - Limit alcohol and caffeine use - Avoidance of marijuana and/or CBD use - plan to obtain Genesight, given her extensive mental health history and significant side effects to medications in the past, I recommend [facility] for better management of sleep aides - has tried sleep aides and had suicidal ideations with several of them. - would like to trial MI in the future as this is a good long-term solution for insomnia OBESITY - BMI most recently documented was 32.49 - no significant weight changes noted or reported - Encouraged patient to lose weight with diet and exercise. - Defer management to PCP OBSTRUCTIVE SLEEP APNEA (EARLENE), mild-moderate (PSG AHI: 5.1/hr with REM AHI of 15.6/hr) - EARLENE diagnosed by PSG in 09/2021. Reviewed sleep studies today in clinic See HPI. - previously tried CPAP, did not tolerate, not currently treating - may be contributing to sleep disturbances RESTLESS LEG SYNDROME (KWOK-EKBOM DISEASE) - Caffeine: daily - Smoker: vapes nicotine & THC - Exacerbating medications: - last iron studies: 02/02/2023 - currently on Gabapentin & Ropinirole - reports controlling symptoms good - continue with current plan DEPRESSION / ANXIETY screen DEPRESSION / ANXIETY / PTSD / STRESS / ADD + screens - denies any SI, HI or hallucinations - currently on medication, controlling symptoms fair - recently had changes to medication d/t significant side effects - currently taking Lamictal, Hydroxyzine and Ativan PRN - Defer management to Mental Health Team SMOKING STATUS screen SMOKING STATUS- ACTIVE current daily smoker encouraged smoking cessation at least 3 hrs prior to bedtime Patient can reach out to PCP for smoking cessation assistance MARIJUANA USE Current daily user - vapes May want to look at using CBN for sleep Encouraged no smoking (any form of smoking posses health risks), use of alternative methods of consumption such as edibles, tinctures, and/or oils Follow-up: after genesight testing All of patient's questions were answered. She verbalizes understanding and agreement with my assessment and plan. Irwin Blount APRN.STEEL WHEEL ENGRAVER [facility] Work Phone: 01-16-2025 Telephone encounter Note Prescription Refill Information The patient has been identified by name and date of : Yes Caregiver verified no other encounters exist for this prescription request: Yes Caregiver confirmed with patient/requestor that no other refills are due, in the near future, with this provider at this time: Yes The last office visit in the department: 11/07/24 Does the patient have a future office visit with this provider/department: No Requested Prescriptions Pending Prescriptions Disp Refills ondansetron orally disintegrating (ZOFRAN ODT) 4 mg disintegrating tablet 60 tablet 1 Sig: Take 1 tablet by mouth every 12 hours as needed for nausea/vomiting. Bishop Henley LPN January 16, 2025 12:41 PM [facility] 12-24-2024 Instructions Ceasar Bonilla APRN.STEEL WHEEL ENGRAVER - 12/24/2024 5:48 PM EST ASSESSMENT/PLAN: 1. Flu-like symptoms - ICD9: 780.99, ICD10: R68.89 - INFLUENZA A&B MOLECULAR (POC)- negative in office. Office Visit on 12/24/2024 Component Date Value Ref Range Status Flu A (POCT) 12/24/2024 Negative Negative Final Flu B (POCT) 12/24/2024 Negative Negative Final Procedural Control 12/24/2024 Valid Final - offered COVID/RSV testing, patient declined. - Follow-up with your PCP in 3-5 days if symptoms have not improved or sooner if symptoms worsen - Discussed red flags and need for immediate medical evaluation if any occur. - Discussed supportive care treatment with fluids, rest and analgesia. 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 use: No Drug use: Not Currently Types: Heroin Comment: sober 2019 REVIEW OF SYSTEMS Abdomen: No abdominal pain, nausea, vomiting, diarrhea, or constipation. No bloating, early satiety, indigestion, or increased flatulence. Bladder: No dysuria, gross hematuria, urinary frequency, urinary urgency, or incontinence. Breast: No breast lumps, nipple d/c, overlying skin changes, redness or skin retraction. Allergies and current medication updated:Yes SENSITIVE EXAM: The sensitive examination was discussed with the Patient or Patient's Authorized Software Configuration Manager. As applicable, any other physician, advance practice provider, medical student, or other health professional student that will be observing or involved in the sensitive examination for educational or training purposes was discussed with the Patient or Authorized Software Configuration Manager. The Patient or Authorized Software Configuration Manager has agreed to proceed with the sensitive examination. (Sensitive examination includes inspection and/or palpation of the breasts, pelvis, prostate and anorectal regions). EXAM: BP 98/68 Ht 5' 2 (1.58m) Wt 177 lb (80.3kg) LMP 12/20/2024 BMI 32.37 kg/(m^2). GENERAL: pleasant, female in no apparent distress HEENT: Normocephalic and atraumatic NECK: Supple DERMATOLOGY: Normal and without lesions BREAST: soft, non-tender, symmetric, no dominant mass, normal nipple-areolar complex, no lymphadenopathy, no nipple discharge, and fibrocystic changes CHEST: Normal inspiratory effort ABDOMEN: soft, non-tender, and no masses PELVIC: external genitalia normal, normal Bartholin's glands, urethra, [place]. Nazianz's glands, no vulvar lesions, no cervical lesions, good vaginal support, physiologic discharge present, normal appearing perineal body and perianal region BIMANUAL: uterus normal size, shape and consistency, no adnexal masses, non-tender, and no cervical motion tenderness RECTOVAGINAL: deferred. NEURO: alert and oriented x3,exam grossly non-focal EXTREMITIES: normal ASSESSMENT/PLAN: 1) Health maintenance: Pap/HPV up to date. 2) Contraception: tubal sterilization. 3) STD screening: Declined STD check.- Just done last month at Urgent Care Requesting Swab for YEAST/BV- collected 4) Follow up one year or sooner as needed Cristhian Frye APRN.CNM documented in this encounter [facility] 12-18-2024 Telephone encounter Note Genesight testing has been ordered per Amy and an the start up Meddle message has been sent to the patient. [facility] Work Phone: 12-18-2024 Miscellaneous Notes Genesight testing has been ordered per Amy and an the start up Meddle message has been sent to the patient. documented in this encounter [facility] 12-18-2024 Irwin Abdi APRN.CNP - 12/18/2024 3:47 PM EST Thank you for coming to [facility] Medicine [facility] today! Your sleep medicine provider today was Nurse Practitioner Irwin Blount. Below is a summary of your treatment plan, patient education, other important information, and contact numbers. It was a pleasure meeting you today Marisa Santa As we discussed today in clinic: 1. I ordered Genesight today. Genesight Pharmacogenomic Pharmacokinetic and Pharmacodynamic Test: An order will be sent to [facility] in [place], [place] for the Genesight test. This test will be shipped to the patients home. This should give us guidance on how the patient metabolizes psychiatric and sleep medications. A buccal swab sample will collected by the patient and genomic DNA was isolated and the relevant genomic regions will be amplified by polymerase chain reaction (PCR) in the genetic laboratory. These interpretations are based upon scientific literature and prescribing information for the relevant drugs. References used can be found at https://[employer]/references. Patient Genotypes and Phenotypes for Pharmacokinetic Genes, Pharmacodynamic Genes and MTHFR are listed. It is important to review the Clinical Considerations for guidance in interpreting the results. 2. Continue all medications as prescribed. Follow-up: after [employer] testing FOR QUESTIONS AND CONCERNS: 1. In case of problems with machine or mask interface, please contact your DME company first. DME is the company that provides you the machine and/or CPAP supplies. Your DME is: 2. For SLEEP STUDY appointments, please call [phone] 3. For MEDICAL QUESTIONS or MEDICATION REFILLS, please do not hesitate to send us a Meddle message or call our collaborating Benefits Sales Consultant nurse Wellington RN, BSN at [phone] Extension #5. 4. For CLINIC APPOINTMENT SCHEDULING, please call [phone] or [phone] Here at [facility] Sleep Medicine Department, we wish you a restful sleep! documented in this encounter [facility] 12-18-2024 Note HNO ID: [id number] Author: IRWIN BLOUNT APRN.STEEL WHEEL ENGRAVER Service: ? Author Type: Nurse Practitioner Type: Progress Notes Filed: 12/18/2024 15:48 Note Text: Just does not sleep. Current mental health: - lamicatal - vistaral - ativan PRN Gabapentin at night for RLS Ambien 5 mg was just started - able to fall asleep but can not stay asleep HISTORY OF SLEEP DIFFICULTIES What is the most distressing/disturbing about your sleep pattern? Staying asleep Estimated average total sleep time per night: variable When did the problem start? Since childhood Any precipitating factors: mental health medications made sleep better Course of sleep problems since onset (i.e. progressive worsening over time, worse with high stress, etc): progressively worse CURRENT SLEEP HABITS BEGINNING OF SLEEP: Pre-bedtime activities (last hour before going to bed): cleaning up house, sometimes coming home from sporting events for children Time to Bed: 9 pm Time of Lights Out: 9 pm SL: 2 hrs - takes Ambien at 9 pm What do you do when you can not fall asleep? Nothing, laying in the darkness Pre-sleep mental activity: mind starts to race Any physical tension or pain: back pain AND RLS Conditioned arousals or environmental disturbances: does have EARLENE, used to keep him awake, now treated - so not bothersome MIDDLE OF THE NIGHT: Number of awakening after sleep onset: every 2-3 hrs What happens when awake in middle of the night?: Total time awake after sleep onset: few minutes to hours END OF NIGHT/MORNING: Final Wake Time: 4 am Time out of bed: 6 am Any difference from weekend AND schedule: denied Any napping or dozing throughout the day: weekends, short naps 30 - 60 mins SLEEP HX: Nightmares: denied Parasomnia: denied Narcolepsy or IDH: denied RLS: currently treated Sleep Apnea: not treating, tried for a whole 5 mins DAYTIME IMPACT of SLEEP Mood: depression, anxiety Fatigue: daily Work/Academic Impact: sometimes impacts work Concentration/Memory Impact: daily Socialization/Relathionship: denied Driving: denied PAST TREATMENT Current sleep medications: Ambien for sleep Past sleep aides: see below Medications tried: Melatonin - makes RLS worse, weird nightmare Ramelteon (Rozerem) - Doxylamine (Unisom) - Diphenhydramine (Benadryl, Tylenol PM, Advil PM) - increase RLS Hydroxyzine (Atarax, Vistaril) - currently on for anxiety Doxepin (Silenor, Sinequan) - SI Trazodone (Desyrel) - worsened RLS Amitriptyline (Elavil) - gained weight with medication, was on for MH Nortriptyline (Pamelor) - Mirtazapine (Remeron) - worsened RLS Trimipramine (Surmontil) - Gabapentin (Neurontin) - currently on for RLS Gabapentin encarbil (Horizant) - Pregabalin (Lyrica) - Eszopiclone (Lunesta) - Zaleplon (Sonata) - Zolpidem (Ambien) - currently on, was also previously on as well (Ambien CR) - Clonazepam (Klonopin) - Lorazepam (Ativan) - currently on for anxiety PRN Diazepam (Valium) - Alprazolam (Xanax) - Temazepam (Restoril) - Chlorpromazine (Thorazine) - Clozapine (Clozaril) - Olanzapine (Zyprexa) - Quetiapine (Seroquel) - very restless, skin was crawling Risperidone (Risperdal) - was making prolactin elevated Ziprasidone (Geodon) - SI Clonidine (Catapres) - Guanfacine (Tenex, Intuniv) - Suvorexant (Belsomra) - Lemborexant (Dayvigo) - Daridorexant (Quviviq) - Magnesium - Valerian root - Lavender - Herbal Tea (Chamomile) - Glycine - CBD/THC - is currently CBD vapes at night Tryptophan - Gingko biloba - L-theanine - Kava - PSYCHIATRIC HISTORY Any diagnosis of mental health disorder: depression, anxiety Treatment in the past: tried many antidepressant AND antipsychotics with medication side effects [facility] - seeing them every few months Current treatment: see psychiatry every few months Current medications: Lamictal, Vistaril, Ativan PRN Any Hospitalization for MH: last hospitalization - 05/2019 SUICIDE RISK ASSESSMENT: Suicidial ideation: denied CURRENT STRESSORS/COPING Current stressors: money, work, kids, sleep Coping: does not have time for herself Current support: family SUBSTANCE USE HISTORY Caffeine: not a lot, occasional soda Nicotine: vapes Alcohol: denied Marijuana/CBD: vapes Illicit Substance: No history of use or abuse Opioids: No history of abuse or dependence SOCIAL HISTORY Current employment status: [employer] [facility] 12-18-2024 History of Present illness Narrative Just does not sleep. Current mental health: - lamicatal - vistaral - ativan PRN Gabapentin at night for RLS Ambien 5 mg was just started - able to fall asleep but can not stay asleep HISTORY OF SLEEP DIFFICULTIES What is the most distressing/disturbing about your sleep pattern? Staying asleep Estimated average total sleep time per night: variable When did the problem start? Since childhood Any precipitating factors: mental health medications made sleep better Course of sleep problems since onset (i.e. progressive worsening over time, worse with high stress, etc): progressively worse CURRENT SLEEP HABITS BEGINNING OF SLEEP: Pre-bedtime activities (last hour before going to bed): cleaning up house, sometimes coming home from sporting events for children Time to Bed: 9 pm Time of Lights Out: 9 pm SL: 2 hrs - takes Ambien at 9 pm What do you do when you can not fall asleep? Nothing, laying in the darkness Pre-sleep mental activity: mind starts to race Any physical tension or pain: back pain & RLS Conditioned arousals or environmental disturbances: does have EARLENE, used to keep him awake, now treated - so not bothersome MIDDLE OF THE NIGHT: Number of awakening after sleep onset: every 2-3 hrs What happens when awake in middle of the night?: Total time awake after sleep onset: few minutes to hours END OF NIGHT/MORNING: Final Wake Time: 4 am Time out of bed: 6 am Any difference from weekend & weekdays schedule: denied Any napping or dozing throughout the day: weekends, short naps 30 - 60 mins SLEEP HX: Nightmares: denied Parasomnia: denied Narcolepsy or IDH: denied RLS: currently treated Sleep Apnea: not treating, tried for a whole 5 mins DAYTIME IMPACT of SLEEP Mood: depression, anxiety Fatigue: daily Work/Academic Impact: sometimes impacts work Concentration/Memory Impact: daily Socialization/Relathionship: denied Driving: denied PAST TREATMENT Current sleep medications: Osito for sleep Past sleep aides: see below Medications tried: Melatonin - makes RLS worse, weird nightmare Ramelteon (Rozerem) - Doxylamine (Unisom) - Diphenhydramine (Benadryl, Tylenol PM, Advil PM) - increase RLS Hydroxyzine (Atarax, Vistaril) - currently on for anxiety Doxepin (Silenor, Sinequan) - SI Trazodone (Desyrel) - worsened RLS Amitriptyline (Elavil) - gained weight with medication, was on for MH Nortriptyline (Pamelor) - Mirtazapine (Remeron) - worsened RLS Trimipramine (Surmontil) - Gabapentin (Neurontin) - currently on for RLS Gabapentin encarbil (Horizant) - Pregabalin (Lyrica) - Eszopiclone (Lunesta) - Zaleplon (Sonata) - Zolpidem (Ambien) - currently on, was also previously on as well (Ambien CR) - Clonazepam (Klonopin) - Lorazepam (Ativan) - currently on for anxiety PRN Diazepam (Valium) - Alprazolam (Xanax) - Temazepam (Restoril) - Chlorpromazine (Thorazine) - Clozapine (Clozaril) - Olanzapine (Zyprexa) - Quetiapine (Seroquel) - very restless, skin was crawling Risperidone (Risperdal) - was making prolactin elevated Ziprasidone (Geodon) - SI Clonidine (Catapres) - Guanfacine (Tenex, Intuniv) - Suvorexant (Belsomra) - Lemborexant (Dayvigo) - Daridorexant (Quviviq) - Magnesium - Valerian root - Lavender - Herbal Tea (Chamomile) - Glycine - CBD/THC - is currently CBD vapes at night Tryptophan - Gingko biloba - L-theanine - Kava - PSYCHIATRIC HISTORY Any diagnosis of mental health disorder: depression, anxiety Treatment in the past: tried many antidepressant & antipsychotics with medication side effects [facility] - seeing them every few months Current treatment: see psychiatry every few months Current medications: Lamictal, Vistaril, Ativan PRN Any Hospitalization for MH: last hospitalization - 05/2019 SUICIDE RISK ASSESSMENT: Suicidial ideation: denied CURRENT STRESSORS/COPING Current stressors: money, work, kids, sleep Coping: does not have time for herself Current support: family SUBSTANCE USE HISTORY Caffeine: not a lot, occasional soda Nicotine: vapes Alcohol: denied Marijuana/CBD: vapes Illicit Substance: No history of use or abuse Opioids: No history of abuse or dependence SOCIAL HISTORY Current employment status: [employer] Images from the original note were not included. [facility] Virtual Visit Follow up / Established patient visit Patient: Marisa Santa : 1990 AGE: [age] year old SEX: female Provider: Irwin Blount APRN.CNP Location: NEUROLOGY Service Date: 12/18/2024 PCP: Ermias Lockwood MD I have communicated my name and active licensure. The patient's identity and physical location were verified at the time of this visit. Either the patient or their legal environmental marketing representative has been informed of the risks and benefits of -- and alternatives to -- treatment through a remote evaluation and consents to proceed with the evaluation remotely. Patient currently states they are in the [facility]. Previous Visit: 12/03/2024 IMPRESSION: Chronic insomnia (primary encounter diagnosis) Rls (restless legs syndrome) Marisa Santa is a 34 year old female with chronic insomnia--sleep onset and frequent awakenings, RLS which is well controlled with gabapentin, mild EARLENE which might be resolved following weight loss (she no longer snores). PMH includes bipolar disorder, anxiety, PTSD, hx substance use disorder, obesity, fibromyalgia, HLD, asthma, smoker Marisa's worsening insomnia is causing her anxiety to flare. She had good success previously with zolpidem without adverse effects. She is very willing to participate in CBTi. PLAN: Wood aren't on her formulary Rx zolpidem 5 mg to take prn for now Refer to Irwin Blount CNP for CBTi/med mgmt Marisa has follow up scheduled with Dr Reyes in January Refill gabapentin so she has enough until she sees Dr Reyes PDMP website checked and validated. All prescriptions have been APPROPRIATELY filled. No suspicious activity was identified. 12/03/2024 by Minna Diez APRN.STEEL WHEEL ENGRAVER Patient ID: Marisa Santa is a 34 year old female who presents to a [facility] for follow-up Insomnia evaluation. Patient is here today alone. The patient has pertinent hx of EARLENE, Insomnia, hypersomnia, obesity, seizures, RLS, headache, fibromyalgia, asthma, GERD, iron deficiency anemia, hepatitis C, scoliosis, back pain, anxiety, depression, PTSD, Bipolar, nightmares, ADD, hx of opioid & heroin use disorder in remission, marijuana use and current vapes. Interval History Patient was last seen in 11/2024. 12/18/2024 Patient here today for evaluation for insomnia and further management. INSOMNIA / SLEEP DISTURBANCE See separate HPI WEIGHT: stable SLEEP STUDY HISTORY A Polysomnogram performed on 10/01/2021 revealed an AHI of 5.1/hr; supine index of 6.6/hr; REM index of 15.6/hr, LUCILA 1, PLM index was negative, mean SpO2 of 93%, SpO2 kurt of 86% and the oxygen saturation was below 88% for 0.1% (0.3 mins) of the study. Stage of sleep noted were all four stages. Patient BMI at time of study was 35.4. Patient had a PAP titration study on 12/04/2021 which showed that none of the tested PAP setting reduced the AHI to normal. Titrated during study from 5 to 8 cm H2O. Stage of sleep noted were all four stages. Patient BMI at time of study was 35.9. Review of Systems REVIEW OF SYMPTOMS PSYCH: Sleep: Patient reports difficulty falling asleep, difficulty staying asleep, frequent nighttime awakenings, non-restorative sleep, premature morning awakening, excessive daytime sleepiness, regular naps and hypersomnia. All other systems have been reviewed and are negative. ALLERGIES Allergen Reactions Clindamycin Anaphylaxis Phenergan [Prometha* Mental Status Change Celexa [Citalopram * Unknown Doxycycline Other: See Comments Nausea, vomiting and diarrhea Effexor [Venlafaxin* Unknown Paxil [Paroxetine H* Other: See Comments Depression made worse Remeron [Mirtazapin* Other: See Comments [place] strange on it. Xanax [Alprazolam] Unknown Current Outpatient Medications Medication Sig simvastatin (ZOCOR) 5 mg tablet Take 1 tablet by mouth daily at bedtime. For cholesterols zolpidem (AMBIEN) 5 mg tablet Take 1 tablet by mouth at bedtime as needed for up to 60 days. [START ON 02/17/2025] gabapentin (NEURONTIN) 600 mg tablet 1 po three times a day (noon, 5pm and bedtime) for treatment refractory RLS pain Patient should start on February 17, 2025. baclofen 10 mg tablet Take 1 tablet by mouth two times a day. dicyclomine (BENTYL) 10 mg capsule Take 1 capsule by mouth before meals and at bedtime. (Patient not taking: Reported on 12/11/2024) ondansetron orally disintegrating (ZOFRAN ODT) 4 mg disintegrating tablet Take 1 tablet by mouth every 12 hours as needed for nausea/vomiting. metoclopramide HCl (REGLAN) 10 mg tablet Take 1 tablet by mouth three times a day as needed. 30min before meals. (Patient not taking: Reported on 12/11/2024) albuterol HFA (PROVENTIL HFA, VENTOLIN HFA) 90 mcg/actuation inhaler Inhale 2 Puffs as instructed every 4 hours as needed for wheezing/shortness of breath. omeprazole (PRILOSEC) 40 mg capsule Take one tab 30 min prior to breakfast and dinner. ascorbic acid, vitamin C, (VITAMIN C) 500 mg tablet Take 1 tablet by mouth once daily. lamoTRIgine (LAMICTAL) 150 mg tablet Take 150 mg by mouth twice daily. hydrOXYzine HCl (ATARAX) 50 mg tablet Take 1 tablet by mouth three times daily. albuterol HFA (VENTOLIN HFA) 90 mcg/actuation inhaler Inhale 2 Puffs as instructed every 4 hours as needed for Wheezing/Shortness of Breath. No current facility-administered medications for this visit. PERTINENT PAST MEDICAL HISTORY: See HPI PERTINENT PAST SURGICAL HISTORY for Sleep Medicine: No pertinent surgical hx noted PERTINENT FAMILY HISTORY for Sleep Medicine: There is no family history of sleep disorders. 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 Smoking: current daily smoker ETOH: No Marijuana: Yes Caffeine: Yes Active Problems, Allergy List, Medication List, and PMH/PSH/FH/Social Hx have been reviewed and reconciled in chart. No significant changes unless documented in the pertinent chart section. Updates made when necessary. VITAL SIGNS: LMP 11/24/2024 (Within Days) BMI: There is no height or weight on file to calculate BMI. PHYSICAL EXAM: Limited telehealth examination General appearance: awake alert in NAD Affect: normal Skin: no rash on areas visible to the video HEENT: Nasal congestion absent Teeth: poor dentition Lungs: no cough. Extr: grossly normal on areas visible to the video Neuro: normal speech Iron Date Value Ref Range Status 02/02/2023 112 41 - 186 ug/dL Final Transferrin Date Value Ref Range Status 01/30/2019 249 200 - 360 mg/dL Final TIBC Date Value Ref Range Status 02/02/2023 279 232 - 386 ug/dL Final Ferritin Date Value Ref Range Status 02/02/2023 114.0 14.7 - 205.1 ng/mL Final CO2 Date Value Ref Range Status 08/18/2024 25 22 - 30 mmol/L Final TSH Date Value Ref Range Status 03/06/2024 1.960 0.270 - 4.200 mIU/L Final Comment: If the patient is , TSH reference range varies by gestational period: First Trimester (weeks 9-12): 0.180-2.990 mIU/L Second Trimester: 0.110-3.980 mIU/L Third Trimester: 0.480-4.710 mIU/L Rudolph Fox et al. A Practical Approach for the Verifications and Determination of Site- and Trimester-Specific Reference Intervals for Thyroid Function tests in . Thyroid, 2019:29:3:412-420. Corey Garcia, et al. 2017 Guidelines of the [place] [employer] for the Diagnosis and Management of Thyroid Disease during and the . Thyroid, 2017:27:3:315-389. Patient Questionnaires Sleep Scores 01/10/2024 12/03/2024 [facility] Sleepiness Scale Score 8 (No clinically significant daytime sleepiness) 12 (Excessive daytime sleepiness present) 12/03/2024 PROMIS CAT Sleep Disturbance PROMIS Sleep Disturbance T-Score 75 (severe) PROMIS Sleep Disturbance Percentile 1 12/03/2024 Insomnia Severity Index Score 24 01/10/2024 12/03/2024 Restless Leg Syndrome Score 25 (Severe symptoms) 28 (Severe symptoms) 11/27/2024 PROMIS Global Health - (T-Scores - the mean of general population = 50. Five points is a clinically meaningful difference.) Physical T-Score 39.8 39.8 39.8 Mental T-Score 38.8 38.8 38.8 12/03/2024 PHQ 2 and 9 Total Scores PHQ-2 Score 2 PHQ-9 Score 14 No data to display PAP ADHERENCE: Not applicable PAP COMPLIANCE DOWNLOAD: SLEEP STUDY DATA: A Polysomnogram performed on 10/01/2021 revealed an AHI of 5.1/hr; supine index of 6.6/hr; REM index of 15.6/hr, LUCILA 1, PLM index was negative, mean SpO2 of 93%, SpO2 kurt of 86% and the oxygen saturation was below 88% for 0.1% (0.3 mins) of the study. Stage of sleep noted were all four stages. Patient BMI at time of study was 35.4. Patient had a PAP titration study on 12/04/2021 which showed that none of the tested PAP setting reduced the AHI to normal. Titrated during study from 5 to 8 cm H2O. Stage of sleep noted were all four stages. Patient BMI at time of study was 35.9. IMPRESSION/PLAN: Marisa Santa is a 34 year old female presents today in [facility] with the following problems: The patient has pertinent hx of EARLENE, Insomnia, hypersomnia, obesity, seizures, RLS, headache, fibromyalgia, asthma, GERD, iron deficiency anemia, hepatitis C, scoliosis, back pain, anxiety, depression, PTSD, Bipolar, nightmares, ADD, hx of opioid & heroin use disorder in remission, marijuana use and current vapes. INSOMNIA + HYPERSOMNIA + EXCESSIVE DAYTIME SLEEPINESS (EDS) / FATIGUE / INADEQUATE SLEEP HYGIENE + SLEEP DISTURBANCE - due to combination of inadequate sleep hygiene, irregular sleep schedule, stress, depression, anxiety, ADHD, PTSD, untreated sleep apnea, obesity, RLS, anemia, marijuana use, caffeine use, children, psychosocial stressors, chronic fatigue syndrome, Fibromyalgia, and chronic pain. Medications do NOT appear to be a contributing factor as well. - see HPI - current medications: Ambien - discussed with patient good sleep hygiene - Important to get good daily dose of natural sunlight to help wakefulness & energy - Reduce artificial lighting at night, especially light from screens (i.e. cellphones, TV, tablets) - Exercise is helpful for your mental and physical health - Have a consistent bedtime routine 1 hour prior to your usual bedtime - If going to take a nap, it should be less than 30 minutes and prior to 3 pm - Limit alcohol and caffeine use - Avoidance of marijuana and/or CBD use - plan to obtain Genesight, given her extensive mental health history and significant side effects to medications in the past, I recommend Genesight for better management of sleep aides - has tried sleep aides and had suicidal ideations with several of them. - would like to trial MI in the future as this is a good long-term solution for insomnia OBESITY - BMI most recently documented was 32.49 - no significant weight changes noted or reported - Encouraged patient to lose weight with diet and exercise. - Defer management to PCP OBSTRUCTIVE SLEEP APNEA (EARLENE), mild-moderate (PSG AHI: 5.1/hr with REM AHI of 15.6/hr) - EARLENE diagnosed by PSG in 09/2021. Reviewed sleep studies today in clinic See HPI. - previously tried CPAP, did not tolerate, not currently treating - may be contributing to sleep disturbances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 drug, alcohol, and mental counseling. TKRN History of hepatitis C 02/20/2014 Was treated and Hep C RNA Jul 2020 was not present. History of heroin abuse (HCC) 10/23/2013 10/23/2013Patient has a history of heroin abuse that began about 4 years ago. She denies any other drug use. She states she has not used heroin for the past 3 months. Discussed the risks of using heroin or any other illicit drugs during . Advised patient that we may do random drug screens during and at the time that she presents to labor and delivery. TKRN History of seizures 09/26/2016 Hyperlipidemia, mixed 07/13/2021 Lost custody of children 10/23/2013 10/23/2013 Patient states she does not have custody of her 2 children. Her first child resides with the patient's mother and the second child resides with the father of the baby. Patient states that she did give up custody of her children by her own choice, although children's services did take one of the children away for 30 days due to her depression. TKRN Major depressive disorder, recurrent episode, severe (HCC) Neck pain 03/02/2020 Nightmares 02/02/2023 On prazosin per Psych. Opioid use disorder EARLENE (obstructive sleep apnea) 12/07/2021 KILEY Knott/Demetrio # [phone]------FAX# [phone] RLS (restless legs syndrome) 09/20/2016 Adverse responses to trazodone, Remeron, Antihistamine. 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 Merlin Knott LAPAROSCOPY SURG CHOLECYSTECTOMY Cholecystectomy, lap LAPS SURG CHOLECYSTECTOMY W/CHOLANGIOGRAPHY 10/30/14 normal IOC PAST SURGICAL HISTORY OF 11/02/2016 bilateral tubal ligation MEDICATIONS: Current Outpatient Medications Medication Sig albuterol HFA (VENTOLIN HFA) 90 mcg/actuation inhaler Inhale 2 Puffs as instructed every 4 hours as needed for Wheezing/Shortness of Breath. ascorbic acid, vitamin C, (VITAMIN C) 500 mg tablet Take 1 tablet by mouth once daily. baclofen 10 mg tablet Take 1 tablet by mouth two times a day. docusate sodium (COLACE) 100 mg capsule Take 1 capsule by mouth twice daily. (Patient not taking: Reported on 08/09/2023) Etonogestrel-Ethinyl Estradiol (NUVARING) 0.12-0.015 mg/24 hr vaginal ring Use 1 Each vaginally as directed. INSERT ONE(1) RING VAGINALLY AND LEAVE IN PLACE FOR THREE WEEKS, THEN REMOVE FOR 1 WEEK. gabapentin (NEURONTIN) 400 mg capsule Take 1 capsule by mouth twice daily for 180 days. hydrOXYzine HCl (ATARAX) 50 mg tablet Take 1 tablet by mouth three times daily. lactulose (DUPHALAC, CONSTULOSE) 10 g/15 mL soln Take 30 ml once a day in the evening lamoTRIgine (LAMICTAL) 150 mg tablet Take 150 mg by mouth twice daily. omeprazole (PRILOSEC) 40 mg capsule Take 1 capsule by mouth once daily. prazosin (MINIPRESS) 1 mg cap TAKE 1 CAPSULE BY MOUTH AT BEDTIME ALONG WITH PRAZOSIN 2 MG prazosin (MINIPRESS) 2 mg cap Take 2 mg by mouth at bedtime as needed. protriptyline (VIVACTIL) 5 mg tablet Take 2 tablets by mouth every morning. risperiDONE (RISPERDAL) 1 mg tablet Take 1 mg by mouth daily at bedtime. SUBLOCADE 300 mg/1.5 mL injection Inject 300 mg subcutaneously once every month. No current facility-administered medications for this visit. ALLERGIES: ALLERGIES Allergen Reactions Clindamycin Anaphylaxis Phenergan [Prometha* Mental Status Change Celexa [Citalopram * Unknown Effexor [Venlafaxin* Unknown Paxil [Paroxetine H* Other: See Comments Depression made worse Remeron [Mirtazapin* Other: See Comments [place] strange on it. Seasonal [Other] Unknown Xanax [Alprazolam] Unknown VITALS: BP 121/84 Pulse 100 Temp 36.9 C (98.4 F) Resp 20 Wt 89.1 kg (196 lb 6.4 oz) LMP 06/19/2023 (Approximate) SpO2 95% BMI 36.61 kg/m PHYSICAL EXAM: GEN: NAD HEENT: EOMI, conjunctiva clear, HEART: regular rate and rhythm, no murmurs LUNGS: clear to auscultation, no wheezes or crackles, no increased WOB ABDOMEN: Soft, nondistended, no masses, no suprapubic tenderness BACK: No CVA tenderness ASSESSMENT/PLAN: 1. Burning with urination - ICD9: 788.1, ICD10: R30.0 - UA DIP, URINE (POC) - negative. No signs of UTI. Symptoms correlate with sublocade initiation. She should have post void residual or catheterization if abdominal discomfort or inability to void occurs. She will follow up with her urologist if symptoms persist. Steven Leonard MD documented in this encounter [facility] 08-03-2023 Miscellaneous Notes Pharmacy verified in [facility] Patient has been identified by name and date of : Yes Patient requesting a call when RX is approved and sent to the pharmacy. Please call patient at: [phone] Patient phones for refill(s): Requested Prescriptions Pending Prescriptions Disp Refills baclofen 10 mg tablet 60 tablet 5 Sig: Take 1 tablet by mouth two times a day. Date of last office visit : 08/26/2021 Date of next office visit : Visit date not found Last 2 Encounter Wt Readings: Date: Wt: 04/12/2023 86.5 kg (190 lb 12.8 oz) 04/09/2023 87.8 kg (193 lb 9.6 oz) Please advise. Jackelyn Bueno documented in this encounter [facility] 07-13-2023 Instructions Anna Tompkins APRN.STEEL WHEEL ENGRAVER - 07/13/2023 3:29 PM EDT Patient Instructions: EARLENE -Keep nasal passages clear, sleep on side or propped up, weight loss and exercise. -We encourage a healthy lifestyle with adequate sleep (7-8 hours), diet and exercise. -Avoid driving when drowsy. Would recommend that if you are dozing off while driving, that you do not drive until your sleep apnea and sleepiness are appropriately treated. -Avoid the use of alcohol, sedatives, and narcotic pain medication at bedtime which can worsen sleep apnea. INSOMNIA -Current treatment : Managed by psychiatry with Lamictal, Risperdal, Prazosin, and Hydroxyzine -Current treatment: Managed by sleep medicine: Started Vivactil 5 mg two tablets qam. -Will message Dr. Reyes and let him know we are starting medication. -Discussed hyperarousal state and underlying causes of insomnia. -Discussed treatment options including medications and CBT. RLS -Current treatment: Managed by sleep medicine: GBPN 400 mg two times daily. Refills transmitted. -Current treatment : Iron and Vitamin C daily. Purchase over the counter. -Nonmedical therapy for restless legs syndrome includes : cold/warm compresses, warm/hot baths or showers, gentle massage, mild leg stretching at nighttime, or magnesium supplements ( 250- 1000 mg at nighttime daily). Mentally alerting activities help too. Note the caffeine, alcohol, nicotine, antidepressants, anti-nausea meds and antihistamines can cause or worsen symptoms. Reminded she needs to be seen every 6 months, once a year in person and once a year with a physician. Visit history: July 13, 2023 ISIDORO gaviria/ KUMAR May 18, 2023 ISIDORO knight MD (Dr. Reyes) February 20, 2023 ISIDORO gaviria/ KUMAR January 05, 2023 ISIDORO gaviria/KUMAR September 12, 2021 OV with KUMAR Keep in person appointment in July with Sleep JOANNA. Then please schedule a follow up appointment with Dr. Javier Reyes specifically, in our [facility] that he supervises (thus he will see you as well with them) or with one our Advance Practice Nurse Sleep Medicine Nurse Practitioners (christian science reader) either in person at the [facility] or virtually via Zoom in . The appointment telephone number for the Sleep Disorder Center is [phone]. Note that Meddle may also be used to schedule your next appointment. If you have questions, feel free to send me a RoomiePics message. Anna Tompkins APRN.STEEL WHEEL ENGRAVER ------- Insomnia What is insomnia? Insomnia is a sleep disorder in which people have one or more of the following symptoms: Difficulty falling asleep Waking up often during the night and having trouble going back to sleep Waking up too early in the morning Having sleep that is not refreshing Who gets insomnia? Approximately 50% of adults experience occasional bouts of insomnia, and 1 in 10 complain of chronic insomnia. Insomnia is approximately twice as common in women as in men, and is more common in older than younger people. Kinds of insomnia There are two kinds of insomnia: Primary insomnia means that a person is having sleep problems that are not directly associated with any other health condition or problem. Secondary (co-morbid) insomnia means that a person is having sleep problems because of something else, such as a health condition (for example, asthma, depression, arthritis, cancer, or heartburn); pain, medicine they are taking; or a substance they are using (such as alcohol). Insomnia also varies in how long it lasts and how often it occurs. Insomnia can be short-term (acute insomnia) or can last a long time (chronic insomnia). It can also come and go, with periods of time when a person has no sleep problems. Acute insomnia can last from one night to a few weeks. Insomnia is called chronic when a person has insomnia at least three nights a week for a month or longer. There are still other ways to classify insomnia. One of the most common forms of insomnia is called psychophysiological (mind-body) insomnia. This is a disorder of learned, sleep-preventing associations, such as not being able to sleep because either your body or your mind is not relaxed. People with this insomnia usually have excessive, daily worries about not being able to fall or stay asleep when desired and worry that their efforts to fall asleep will be unsuccessful. Many people with this condition are concerned that they will never have a good night of sleep again. Stress is the most common cause of psychophysiological insomnia. While sleep problems are common when going through a stressful event, some people continue to have sleep problems long after the stressful event is over. Sometimes the stress and sleep problems create an ongoing, worsening cycle of each problem. In addition to stress, what are other causes of insomnia? Causes of acute insomnia can include: Other significant types of life stressors (job loss or change, of a loved one, moving) Illness Medications Emotional or physical discomfort Environmental factors such as noise, light, or extreme temperatures (hot or cold) that interfere with sleep Things that interfere with a normal sleep schedule (jet lag or switching from a day to security shift supervisor, for example) Causes of chronic insomnia include: Depression Chronic stress Pain or discomfort at night What are the symptoms of insomnia? Symptoms of insomnia include sleepiness during the day, general tiredness, irritability, and problems with concentration or memory. How is insomnia diagnosed? If you think you have insomnia, talk to your health care provider. An evaluation may include a physical exam, a medical history, and a sleep history. You may be asked to keep a sleep diary for a week or two, keeping track of your sleep patterns and how you feel during the day. Your health care provider may want to interview your bed partner about the quantity and quality of your sleep. In some cases, you may be referred to a sleep center for special tests. How is insomnia treated? Acute insomnia may not require treatment. Mild insomnia often can be prevented or cured by practicing good sleep habits (see below). If your insomnia makes it hard for you to function during the day because you are sleepy and tired, your health care provider may prescribe sleeping pills for a limited time. Rapid onset, short-acting medicines can help you avoid effects such as drowsiness the following day. Some medicines may be less effective after several weeks of nightly use, however, and long-term safety and effectiveness have not yet been established. Avoid using [id number] sleeping pills for insomnia. Treatment for chronic insomnia includes first treating any underlying conditions or health problems that are causing the insomnia. If insomnia continues, your health care provider may suggest behavioral therapy. Behavioral approaches help you to change behaviors that may worsen insomnia and to learn new behaviors to promote sleep. Behavior therapy is commonly used to treat psychophysiological insomnia. Other techniques such as relaxation exercises, biofeedback, sleep restriction therapy, and reconditioning can be tried. Although these techniques require some effort and take time to work, they do provide a means of coping with insomnia that help people return to more normal sleep patterns. What habits promote a good night's sleep? Good sleep habits, also called sleep hygiene, can help you get a good night's sleep. For example: Think positive. Avoid going to bed with a negative mindset, such as If I don't sleep for 8 hours, I will feel terrible tomorrow. Try to go to sleep at the same time each night and get up at the same time each morning. Try not to take naps during the day because naps may make you less sleepy at night. Avoid caffeine, nicotine, and alcohol late in the day. Caffeine and nicotine are stimulants and can keep you from falling asleep. Alcohol can cause waking in the night and interferes with sleep quality. Get regular exercise. Try not to exercise close to bedtime because it may stimulate you and make it hard to fall asleep. Experts suggest not exercising for 4 hours before the time you go to sleep. Don't eat a heavy meal late in the day. A light snack before bedtime, however, may help you sleep. Make your sleeping place comfortable. Be sure that it is dark, quiet, and not too warm or too cold. If light is a problem, try a sleeping mask. If noise is a problem, try earplugs or a fan. Relax before going to bed by reading a book, listening to music, taking a bath, or enjoying another activity you find relaxing. Avoid using your bed for anything other than sleep or sex. If you can't fall asleep and don't feel drowsy, get up and read or do something that is not overly stimulating until you feel sleepy. If you have trouble lying awake worrying about things, try making a to-do list before you go to bed. This may help you to not focus on those worries overnight. Stop clockwatching. Turn the clock around and only use the alarm. References Ciro Champagne; Cee Thao. Handbook of Sleep Medicine. 1st edition. [place]: Lori Sam and [place]. February 2006. Chris Sandhu. The [facility] Guide to Sleep Disorders. [place]: [employer], 2009 [place] [employer]. Insomnia Accessed 02/10/2015. [place] [employer]. Insomnia Accessed 02/10/2015. --- RLS These are few conservative measures that can be tried for RLS: 1.Avoid provocative substances for RLS such as: a. Coffee b. Alcohol c. Tobacco d. Antihistamines 2. Practice Good Sleep Hygiene for RLS: a. Avoid sleep deprivation b. Regular hours of sleep c. Optimize bedroom for sleep d. Prepare for sleep with relaxing/symptom reducing activities 3. Alternative treatments for RLS: a. Light stretching before bed b. Massage c. Heat or cold d. Warm bath e. Exercise and physical conditioning Additional information on RLS: Go to RLS.org for more information from the RLS Foundation; there are many articles and lectures available on this condition that would be helpful, some of which would require membership to the foundation. documented in this encounter [facility] 07-13-2023 History of Present illness Narrative Images from the original note were not included. [facility] Sleep Disorders Center Virtual Visit Follow Up/ Established Patient Visit PATIENT NAME: Marisa Olmos [facility] Rules ([facility] ): This visit was conducted as a Virtual Visit, with patient's permission, via Zoom. It required patient-provider interaction for the medical decision making as documented below. Patient stated first & last name: Marisa Olmos Patient stated : 1990 Patient stated current location: [place] [address] I have communicated my name, Anna Tompkins APRN.CNP, and active licensure in the Sleep Medicine Center at [facility]. The patient's identity and physical location were verified at the time of this visit. Either the patient or their legal environmental marketing representative has been informed of the risks and benefits of -- and alternatives to -- treatment through a remote evaluation and consents to proceed with the evaluation remotely. Virtual visits are a convenient way for us to meet, but there are some situations in which an in-person evaluation may be required at a later time. I want to check in to confirm your consent to be seen virtually today. Consent given: Yes Assessment/Plan from LAST VISIT: Date of last visit : 05/18/23 IMPRESSION/PLAN: I: BAD I euthymic PTSD Substance Abuse Disorder II: Deferred III: G47.33 EARLENE (obstructive sleep apnea) (primary encounter diagnosis) mild G25.81 RLS (restless legs syndrome) F51.04 Chronic insomnia G47.19 Excessive daytime sleepiness M79.7 Fibromyalgia K21.00 Gastroesophageal reflux disease with esophagitis without hemorrhage M54.50, G89.29 Chronic bilateral low back pain without sciatica D53.9 Deficiency anemia G62.9 Neuropathy F51.5, F43.12 Nightmares associated with chronic post-traumatic stress disorder Z87.898 History of seizures Earlene on cpap (primary encounter diagnosis) PLAN: Thus, this very pleasant patient reports multiple symptoms that are concerning and symptoms that have obviously interfered with and decreased their qualify of life. I would suggest the following clinical recommendations be considered: Consider Vivactil 10mg po q am to assist her mood, improve energy level and to decrease quantity of REM sleep and move REM towards the later third of the night. Pt will discuss this with her psychiatrist to discuss whether the risk is low enough so not to trigger a hypomanic episode. It was a pleasure visiting with you today in the [facility]. It is certainly a privilege to assist you in your medical care. Please schedule a follow up appointment with me specifically, in our [facility] that I supervise (thus I will see you as well with them) or with one our Advance Practice Nurse Sleep Medicine Nurse Practitioners (christian science reader) either in person at the [facility] or virtually via Zoom in day. The appointment telephone number for the Sleep Disorder Center is [phone]. Note that Meddle may also be used to schedule your next appointment. Remember to please follow up with your other medical specialists and your primary care provider on a regular basis. If you have any further questions regarding the diagnosis or recommendations today, please do not hesitate to send us a Meddle message or call our collaborating Benefits Sales Consultant nurse Paris RN, BSN at [phone] Extension #[phone]. I spent a total time of over 30 minutes on the date of the service on this case. This included preparing to see the patient by reviewing the medical record prior to examining the patient, interviewing the patient face to face in the clinic or virtually via audio and video secure [facility] technology, ordering appropriate medications/tests/procedures, completing clinical documentation of the visit, counseling and educating the patient/family/caregiver, communicating with other health care providers as well as general care coordination. Javier Reyes DO, CBSM, ABSM Associate Cardroom Hand, Sleep Medicine Fellowship Clinical Staff Physician, Sleep Medicine [facility] Department of Neurology Department of Psychiatry [facility] [address] [place] [address] Mail Code [id number] [place], [place] [address] <End Assessment/Plan from last visit> CURRENT VISIT: 07/13/2023 Interval history: Reports she has scheduled an in office appointment for July 2023. Off PAP therapy. Hoping to start Vivactil to improve her sleep. Follow up visit for EARLENE (off PAP therapy), Insomnia (managed by Psych and Sleep Medicine), RLS (GBPN). In person visit scheduled with Sleep JOANNA on 08/20/23. Relevant study results reviewed as noted below, if applicable. SLEEP APNEA Sleep apnea type : EARLENE Most Recent Apnea-Hypopnea Index (AHI): Total AHI 5.1, Supine AHI 6.6 REM AHI 15.6 Treatment : Reports she was told to stop PAP therapy at last visit with Dr. Reyes. ------- INSOMNIA Current treatment : Risperdal 1m g at bedtime, Prazosin 3 mg at bedtime, Hydroxyzine 50 mg TID prn (takes last dose at bedtime), Lamictal 150 mg BID (takes second dose at bedtime) --. These medications are prescribed by Psychiatry. Gabapentin 400 mg in afternoon and at bedtime --> prescribed by Sleep medicine. Reports last visit, Dr. Reyes recommended starting Vivactil if okay with psychiatry. Given okay by psychiatry but Dr. Reyes must prescribe medication. Patient would like to start Vivactil 10mg po qam to assist her mood, improve energy level and to decrease quantity of REM sleep and move REM towards the later third of the night. Status : Same No problems falling asleep. Problems staying asleep. Frequent awakenings. Hoping Vivactil will be beneficial. ------- RLS Current treatment : Gabapentin 400 mg afternoon ~5972-0871 and bedtime. The timing of the medication has really helped. RLS much improved. Continues Iron 325 mg with Vit C daily. She is getting some constipation, but is prescribed Constulose. By PCP Status : improved Time of day symptoms begin : ~ 1600 when she getting is off work. Time of day symptoms are worst : Sitting down in the evening. Bedtime can be the worst. Time of day when symptom-free : Never symptom free. SLEEP HYGIENE QUESTIONS: Bedtime : 8032-9560. Wake up Time : 0600 Time it takes to fall sleep : Falls asleep quickly. No problems falling asleep. The problem is staying asleep. Activities in bed before falling asleep : None Number of times patient wakes up per night : 3 Reason (s) why patient wakes up during the night : Reasons unknown. Estimated total sleep time ( in a 24 hour period of time) : 4-5 Naps : No OTHER RELEVANT LABS AND STUDIES: Ferritin Date Value Ref Range Status 02/02/2023 114.0 14.7 - 205.1 ng/mL Final 04/13/2022 38.9 14.7 - 205.1 ng/mL Final 01/30/2019 66.6 14.7 - 205.1 ng/mL Final 11/14/2017 88.7 14.7 - 205.1 ng/mL Final 09/20/2016 33.9 9.0 - 150.0 ng/mL Final Transferrin Saturation Date Value Ref Range Status 02/02/2023 40.1 15.0 - 57.0 % Final 04/13/2022 20.8 15.0 - 57.0 % Final 01/30/2019 12 (L) 15 - 57 % Final 11/14/2017 48 15 - 57 % Final 09/20/2016 9 (L) 15 - 57 % Final Hemoglobin Date Value Ref Range Status 04/12/2023 13.0 11.5 - 15.5 g/dL Final 11/14/2022 12.4 11.5 - 15.5 g/dL Final Iron Date Value Ref Range Status 02/02/2023 112 41 - 186 ug/dL Final 04/13/2022 68 41 - 186 ug/dL Final 01/30/2019 39 (L) 41 - 186 ug/dL Final 11/14/2017 170 41 - 186 ug/dL Final TIBC Date Value Ref Range Status 02/02/2023 279 232 - 386 ug/dL Final 04/13/2022 327 232 - 386 ug/dL Final 01/30/2019 325 232 - 386 ug/dL Final 11/14/2017 354 232 - 386 ug/dL Final PATIENT-ENTERED QUESTIONNAIRE SLEEP SCORES Sleep Questions 07/13/2023 Reason for visit: Difficulty falling or staying asleep or poor sleep quality, Restless Legs Syndrome Average hours slept in 24 hours: 5 Average hours of CPAP per night: - Percent of nights CPAP used at least 4 hours: - Accidents or near accidents due to drowsy drivin [facility] Sleepiness Scale 02/20/2023 05/18/2023 07/13/2023 Score 6 (No daytime sleepiness) 8 (No daytime sleepiness) 6 (No daytime sleepiness) PROMIS CAT Sleep Disturbance 02/20/2023 05/18/2023 07/13/2023 PROMIS Sleep Disturbance T-Score 63 (moderate) 60 (mild) 65 (moderate) PROMIS Sleep Disturbance Percentile 10 % 16 % 7 % Insomnia Severity Index 02/20/2023 05/18/2023 07/13/2023 Score 16 21 21 Restless Leg Syndrome 02/20/2023 05/18/2023 07/13/2023 Score 35 30 22 PHQ-9 02/20/2023 05/18/2023 07/13/2023 Score 4 17 10 PROMIS Global Health - (T-Scores - the mean of general population = 50. Five points is a clinically meaningful difference.) 06/01/2022 12/31/2022 05/18/2023 Physical T-Score 44.9 34.9 37.4 Mental T-Score 43.5 45.8 45.8 CURRENT MEDICATIONS: gabapentin (NEURONTIN) 400 mg capsule Take 1 capsule by mouth twice daily for 180 days. protriptyline (VIVACTIL) 5 mg tablet Take 2 tablets by mouth every morning. baclofen (LIORESAL) 10 mg tablet Take 1 tablet by mouth twice daily. lactulose (DUPHALAC, CONSTULOSE) 10 g/15 mL soln Take 30 ml once a day in the evening docusate sodium (COLACE) 100 mg capsule Take 1 capsule by mouth twice daily. CPAP/BIPAP/OTHER Type .CPAPSettings into a note to see current settings/supplies/DME information. lamoTRIgine (LAMICTAL) 150 mg tablet Take 150 mg by mouth twice daily. omeprazole (PRILOSEC) 40 mg capsule Take 1 capsule by mouth once daily. ascorbic acid, vitamin C, (VITAMIN C) 500 mg tablet Take 1 tablet by mouth once daily. risperiDONE (RISPERDAL) 1 mg tablet Take 1 mg by mouth daily at bedtime. Etonogestrel-Ethinyl Estradiol (NUVARING) 0.12-0.015 mg/24 hr vaginal ring Use 1 Each vaginally as directed. INSERT ONE(1) RING VAGINALLY AND LEAVE IN PLACE FOR THREE WEEKS, THEN REMOVE FOR 1 WEEK. prazosin (MINIPRESS) 1 mg cap TAKE 1 CAPSULE BY MOUTH AT BEDTIME ALONG WITH PRAZOSIN 2 MG prazosin (MINIPRESS) 2 mg cap Take 2 mg by mouth at bedtime as needed. buprenorphine-naloxone (SUBOXONE) 8-[address] 1 & 1/2 (ONE & ONE-HALF) STRIPS UNDER THE TONGUE ONCE DAILY CPAP AutoCPAP 5-15 cm H2O, mask (pt pref), filters, heated humidity & tubing. Lifetime supplies. EARLENE G47.33. hydrOXYzine HCl (ATARAX) 50 mg tablet Take 1 tablet by mouth three times daily. albuterol HFA (VENTOLIN HFA) 90 mcg/actuation inhaler Inhale 2 Puffs as instructed every 4 hours as needed for Wheezing/Shortness of Breath. Prior Hypersomnia/Narcolepsy Medications (20 years) Some values may be hidden. Unless noted otherwise, only the newest values recorded on each date are displayed. Hypersomnia/Narcolepsy Medications No data to display. Prior RLS Medications (last 20 years) Some values may be hidden. Unless noted otherwise, only the newest values recorded on each date are displayed. RLS Medications rOPINIRole (REQUIP) 0.25 mg tablet Dose: 0.25 mg AT BEDTIME (Patient not taking as of 10/19/2016 1:09 PM) Starting date: 09/12/2016 Ending date: 10/19/2016 (Discontinued) rOPINIRole (REQUIP) 0.25 mg tablet Dose: 0.25 mg AT BEDTIME Starting date: 06/22/2017 Ending date: 11/14/2017 (Discontinued) rOPINIRole (REQUIP) 0.25 mg tablet Dose: 0.25 mg AT BEDTIME Starting date: 11/14/2017 Ending date: 12/12/2017 (Discontinued) rOPINIRole (REQUIP) 0.5 mg tablet Dose: 0.5 mg AT BEDTIME NEEDED Twice in the evening, as discussed Starting date: 12/12/2017 Ending date: 01/30/2018 (Discontinued) rOPINIRole (REQUIP) 0.5 mg tablet Dose: 1.5 mg AT BEDTIME NEEDED Spaced out in the evening, as discussed Starting date: 01/30/2018 Ending date: 04/15/2018 (Discontinued) rOPINIRole (REQUIP) 0.5 mg tablet Dose: 1.5 mg AT BEDTIME NEEDED Spaced out in the evening, as discussed Starting date: 04/16/2018 Ending date: 04/30/2018 (Discontinued) rOPINIRole (REQUIP) 0.5 mg tablet Dose: 1.5 mg AT BEDTIME NEEDED Spaced out in the evening, as discussed Starting date: 04/30/2018 Ending date: 05/29/2018 (Discontinued) rOPINIRole (REQUIP) 0.5 mg tablet Dose: 1.5 mg AT BEDTIME NEEDED Spaced out in the evening, as discussed Starting date: 05/30/2018 Ending date: 06/12/2018 (Discontinued) rOPINIRole (REQUIP) 0.5 mg tablet Dose: 1.5 mg AT BEDTIME NEEDED Spaced out in the evening, as discussed Starting date: 06/28/2018 Ending date: 09/09/2018 (Discontinued) rOPINIRole (REQUIP) 0.5 mg tablet Dose: 1.5 mg AT BEDTIME NEEDED Spaced out in the evening, as discussed Starting date: 09/11/2018 Ending date: 01/30/2019 (Discontinued) rOPINIRole (REQUIP) 0.5 mg tablet Dose: 1.5 mg AT BEDTIME NEEDED Spaced out in the evening, as discussed Starting date: 01/30/2019 Ending date: 01/30/2019 (Discontinued) rOPINIRole (REQUIP) 0.5 mg tablet Dose: 1.5 mg AT BEDTIME NEEDED Spaced out in the evening, as discussed Starting date: 01/30/2019 Ending date: 07/03/2019 (Discontinued) rOPINIRole (REQUIP) 0.5 mg tablet Dose: 1.5 mg AT BEDTIME NEEDED Spaced out in the evening, as discussed Starting date: 07/08/2019 Ending date: 02/19/2020 (Discontinued) rOPINIRole (REQUIP) 0.5 mg tablet Dose: 1.5 mg AT BEDTIME NEEDED Spaced out in the evening, as discussed Starting date: 02/19/2020 Ending date: 11/11/2020 (Discontinued) traMADol 50 mg tablet Dose: 50 mg EVERY 8 HOURS NEEDED 1-2 tablets by mouth every 8 hrs as needed for pain. Starting date: 12/04/2013 Ending date: 12/18/2013 traMADol 50 mg tablet Dose: 1-2 tablets by mouth every 8 hrs as needed for pain. Starting date: 01/08/2014 Ending date: 01/21/2014 (Discontinued) traMADol (ULTRAM) 50 mg tablet Dose: 50 mg EVERY 4 HOURS NEEDED Starting date: 11/02/2014 Ending date: 11/06/2014 (Discontinued) Prior Insomnia Medications (last 20 years) Some values may be hidden. Unless noted otherwise, only the newest values recorded on each date are displayed. Insomnia Medications amitriptyline (ELAVIL) 10 mg tablet Dose: 10 mg AT BEDTIME Starting date: 07/15/2019 Ending date: 10/30/2019 (Discontinued) amitriptyline (ELAVIL) 100 mg tablet Dose: 100 mg AT BEDTIME Starting date: 09/27/2020 Ending date: 09/27/2020 (Discontinued) amitriptyline (ELAVIL) 100 mg tablet Dose: 100 mg AT BEDTIME Starting date: 09/29/2020 Ending date: 10/25/2020 (Discontinued) amitriptyline (ELAVIL) 100 mg tablet Dose: 100 mg AT BEDTIME Starting date: 10/25/2020 Ending date: 11/30/2020 (Discontinued) amitriptyline (ELAVIL) 25 mg tablet Dose: After taking the elavil 100 mg 1/2 a tab a day go to taking 25 mg a day for 4 days and then stop and start the doxepin Starting date: 11/11/2020 Ending date: 11/30/2020 (Discontinued) amitriptyline (ELAVIL) 25 mg tablet Dose: 25 mg DAILY Starting date: 04/18/2022 Ending date: 07/12/2022 (Discontinued) amitriptyline (ELAVIL) 50 mg tablet Dose: Take 1/2 table qpm x7 days then can increase to whole tablet Starting date: 07/15/2019 Ending date: 07/15/2019 (Discontinued) amitriptyline (ELAVIL) 50 mg tablet Dose: 50 mg AT BEDTIME Starting date: 10/30/2019 Ending date: 03/09/2020 (Discontinued) amitriptyline (ELAVIL) 50 mg tablet Dose: 50 mg AT BEDTIME Starting date: 03/10/2020 Ending date: 06/07/2020 (Discontinued) amitriptyline (ELAVIL) 50 mg tablet Dose: 50 mg DAILY (Patient not taking as of 10/12/2022 6:58 AM) Starting date: 07/12/2022 Ending date: 01/01/2023 (Discontinued) amitriptyline (ELAVIL) 75 mg tablet Dose: 75 mg AT BEDTIME Starting date: 06/07/2020 Ending date: 09/22/2020 (Discontinued) amitriptyline (ELAVIL) 75 mg tablet Dose: 75 mg AT BEDTIME Starting date: 09/22/2020 Ending date: 09/27/2020 (Discontinued) amitriptyline (ELAVIL) 75 mg tablet Dose: 75 mg AT BEDTIME Starting date: 09/27/2020 Ending date: 10/25/2020 (Discontinued) Amitriptyline-chlordiazePOXIDE 25-10 mg tab Dose: Take by mouth. Starting date: Ending date: 07/15/2019 (Discontinued) clonazePAM (KLONOPIN) 0.5 mg tablet Dose: 1.5 mg AT BEDTIME (Patient taking differently: 1.5 mg AT BEDTIME as of 02/18/2018 3:43 PM) Starting date: 01/30/2018 Ending date: 04/02/2018 (Discontinued) clonazePAM (KLONOPIN) 0.5 mg tablet Dose: 1.5 mg AT BEDTIME Starting date: 04/03/2018 Ending date: 04/30/2018 (Discontinued) clonazePAM (KLONOPIN) 0.5 mg tablet Dose: 1.5 mg AT BEDTIME Starting date: 04/30/2018 Ending date: 05/29/2018 (Discontinued) clonazePAM (KLONOPIN) 0.5 mg tablet Dose: 1.5 mg AT BEDTIME Starting date: 05/30/2018 Ending date: 06/12/2018 (Discontinued) clonazePAM (KLONOPIN) 0.5 mg tablet Dose: 1.5 mg AT BEDTIME Starting date: 06/12/2018 Ending date: 09/09/2018 (Discontinued) clonazePAM (KLONOPIN) 0.5 mg tablet Dose: 1.5 mg AT BEDTIME (Patient not taking as of 10/25/2018 11:36 AM) Starting date: 09/11/2018 Ending date: 01/30/2019 (Discontinued) clonazePAM (KLONOPIN) 0.5 mg tablet Dose: 1.5 mg AT BEDTIME Starting date: 01/30/2019 Ending date: 04/30/2019 (Discontinued) clonazePAM (KLONOPIN) 1 mg tablet Dose: 1 mg AT BEDTIME Starting date: 12/12/2017 Ending date: 01/30/2018 (Discontinued) doxepin capsule 10 mg Dose: 10 mg AT BEDTIME Starting date: 03/06/2018 Ending date: 06/12/2018 (Discontinued) doxepin capsule 25 mg Dose: 25 mg AT BEDTIME Start after completing the 4 days of Elavil at 25 mg before bed Starting date: 11/11/2020 Ending date: 11/30/2020 (Discontinued) doxylamine 25 mg tab Dose: 25 mg 3 TIMES DAILY NEEDED nausea and vomiting Starting date: 04/28/2014 Ending date: 05/29/2014 (Discontinued) mirtazapine (REMERON) 15 mg tablet Dose: 15 mg AT BEDTIME Starting date: 09/08/2014 Ending date: 10/27/2014 (Discontinued) protriptyline (VIVACTIL) 5 mg tablet Dose: 10 mg EVERY MORNING Starting date: 07/13/2023 (active) risperiDONE (RISPERDAL) 0.5 mg tablet Dose: 0.5 mg 2 TIMES DAILY Per psych Starting date: 01/07/2021 Ending date: 01/20/2021 (Discontinued) risperiDONE (RISPERDAL) 0.5 mg tablet Dose: 0.5 mg 2 TIMES DAILY Per psych Starting date: 01/20/2021 Ending date: 02/22/2021 (Discontinued) risperiDONE (RISPERDAL) 0.5 mg tablet Dose: 0.5 mg 2 TIMES DAILY Per psych Starting date: 02/22/2021 Ending date: 03/23/2021 (Discontinued) risperiDONE (RISPERDAL) 0.5 mg tablet Dose: 0.5 mg 2 TIMES DAILY Per psych Starting date: 03/23/2021 Ending date: 04/21/2021 (Discontinued) risperiDONE (RISPERDAL) 0.5 mg tablet Dose: 0.5 mg 2 TIMES DAILY Per psych Starting date: 04/21/2021 Ending date: 07/12/2022 (Discontinued) risperiDONE (RISPERDAL) 1 mg tablet Dose: 1 mg 2 TIMES DAILY Starting date: 05/31/2017 Ending date: 12/12/2017 (Discontinued) risperiDONE (RISPERDAL) 1 mg tablet Dose: 1 mg AT BEDTIME Starting date: 09/26/2022 (active) sertraline (ZOLOFT) 50 mg tablet Dose: 50 mg DAILY Starting date: Ending date: 04/07/2015 (Discontinued) sertraline (ZOLOFT) 50 mg tablet Dose: 100 mg DAILY Starting date: 04/07/2015 Ending date: 05/03/2015 (Discontinued) sertraline (ZOLOFT) 50 mg tablet Dose: Starting date: 07/14/2019 Ending date: 10/30/2019 (Discontinued) traZODone (DESYREL) 50 mg tablet Dose: 50 mg AT BEDTIME Starting date: 11/30/2020 Ending date: 01/07/2021 (Discontinued) zolpidem (AMBIEN) 5 mg tablet Dose: 5 mg AT BEDTIME NEEDED Starting date: 11/25/2013 Ending date: 01/21/2014 (Discontinued) zolpidem (AMBIEN) 5 mg tablet Dose: 5 mg AT BEDTIME NEEDED Starting date: 08/25/2014 Ending date: 09/08/2014 (Discontinued) zolpidem (AMBIEN) 5 mg tablet Dose: 5 mg AT BEDTIME NEEDED Starting date: 09/08/2014 Ending date: 10/27/2014 (Discontinued) zolpidem (AMBIEN) 5 mg tablet Dose: 5 mg AT BEDTIME NEEDED Starting date: 11/13/2014 Ending date: 11/30/2014 (Discontinued) zolpidem (AMBIEN) 5 mg tablet Dose: 5 mg AT BEDTIME NEEDED Starting date: 11/30/2014 Ending date: 12/23/2014 (Discontinued) Medication marked as long-term Review of Systems Constitutional: Positive for fatigue. Respiratory: Negative. Cardiovascular: Negative. Genitourinary: Positive for nocturia. Musculoskeletal: Positive for uncomfortable leg sensations. Psychiatric: Positive for depressed mood. VITAL SIGNS: Deferred due to virtual visit via Zoom. LMP 03/15/2023 (Approximate) PHYSICAL EXAMINATION: Constitutional: Appearance: Well groomed. Well nourished FEMALE. Very pleasant. Neurological: General: No focal deficit present. Mental Status: A&OX3 (person, place, and time). Speech: Clear, projects well. Memory: Intact, responses appropriate. Mood and Affect: Mood normal. Behavior: Behavior normal Assessment & Plan IMPRESSION/PLAN: Diagnosis: Earlene on cpap (primary encounter diagnosis) Chronic insomnia Rls (restless legs syndrome) Overview: Marisa Olmos is a 33 year old year old female with a PMH as noted who presents via Virtual Visit for EARLENE (off PAP therap), Insomnia (managed by Psych and Sleep Medicine), RLS (GBPN). Reports she has scheduled an in office appointment for July 2023. Reports she was told at last office visit to stop PAP therapy. Hoping to start Vivactil to improve her sleep. She has no problems falling asleep, but problems staying asleep. She is on multiple medications for insomnia and most are managed by psychiatry with Lamictal, Risperdal, Prazosin, and Hydroxyzine. Last visit Dr. Reyes discussed Vivactil with her. This medication was discussed with her psychiatrist (whether the risk is low enough so not to trigger a hypomanic episode). Given okay to start medication, but psychiatrist would like Dr. Reyes to write for the Vivactil. Patient is anxious to start the medication. Reports its suppose to help my mood and energy level and help me get betrer sleep. RLS controlled wit GBPN 400 mg 1 tablet in the afternoon and 1 tablet later in the evening. No side effects or adverse reactions. She also continues Iron and Vitamin C supplementation. Reports some constipation, but being prescribed Constulose by PCP. Plan: EARLENE -Keep nasal passages clear, sleep on side or propped up, weight loss and exercise. -We encourage a healthy lifestyle with adequate sleep (7-8 hours), diet and exercise. -Avoid driving when drowsy. Would recommend that if you are dozing off while driving, that you do not drive until your sleep apnea and sleepiness are appropriately treated. -Avoid the use of alcohol, sedatives, and narcotic pain medication at bedtime which can worsen sleep apnea. INSOMNIA -Current treatment : Managed by psychiatry with Lamictal, Risperdal, Prazosin, and Hydroxyzine -Current treatment: Managed by sleep medicine: Started Vivactil 5 mg two tablets qam. - Will message Dr. Reyes and let him know we are starting medication. -Discussed hyperarousal state and underlying causes of insomnia. -Discussed treatment options including medications and CBT. RLS -Current treatment: Managed by sleep medicine: GBPN 400 mg two times daily. Refills transmitted. -Current treatment : Iron and Vitamin C daily. Purchase over the counter. -Nonmedical therapy for restless legs syndrome includes : cold/warm compresses, warm/hot baths or showers, gentle massage, mild leg stretching at nighttime, or magnesium supplements ( 250- 1000 mg at nighttime daily). Mentally alerting activities help too. Note the caffeine, alcohol, nicotine, antidepressants, anti-nausea meds and antihistamines can cause or worsen symptoms. Reminded she needs to be seen every 6 months, once a year in person and once a year with a physician. Visit history: July 13, 2023 ISIDORO gaviria/ KUMAR May 18, 2023 ISIDORO gaviria/ (Dr. Reyes) February 20, 2023 ISIDORO w/ GLASS ROLLING MACHINE OPERATOR January 05, 2023 ISIDORO gaviria/KUMAR September 12, 2021 OV with GLASS ROLLING MACHINE OPERATOR Keep in person appointment in July with Sleep JOANNA. Then please schedule a follow up appointment with Dr. Javier Reyes specifically, in our [facility] that he supervises (thus he will see you as well with them) or with one our Advance Practice Nurse Sleep Medicine Nurse Practitioners (christian science reader) either in person at the [facility] or virtually via Zoom in . The appointment telephone number for the Sleep Disorder Center is [phone]. Note that Meddle may also be used to schedule your next appointment. If you have questions, feel free to send me a RoomiePics message. I spent a total of 39 minutes. This was a follow up patient to me on the date of the service which included preparing to see the patient, [id number] patient care, completing clinical documentation, counseling and educating the patient/family/caregiver and ordering medications, tests, or procedures. Anna Tompkins APRN.STEEL WHEEL ENGRAVER July 08, 2023 4:04 PM The following approved medication requests have been transmitted electronically. Requested Prescriptions Signed Prescriptions Disp Refills gabapentin (NEURONTIN) 400 mg capsule 60 capsule 5 Sig: Take 1 capsule by mouth twice daily for 180 days. protriptyline (VIVACTIL) 5 mg tablet 60 tablet 3 Sig: Take 2 tablets by mouth every morning. Anna Tompkins APRN.CNP PDMP website checked and validated. All prescriptions have been APPROPRIATELY filled. No suspicious activity was identified. 07/13/2023 by Anna Tompkins APRN.CNP Activity Duration Chart accessed 27 minutes Current session 37 minutes Total time: 1 hour 5 minutes* *Based only on time spent in the patient's chart documented in this encounter [facility] 07-05-2023 Miscellaneous Notes HEMALATHA: 05.18.23 In Person: 09.12.21 MD: 05.18.23 F/U: 07.13.23 with CORN LAB TECHNICIAN IMPRESSION/PLAN: I: BAD I euthymic PTSD Substance Abuse Disorder II: Deferred III: G47.33 EARLENE (obstructive sleep apnea) (primary encounter diagnosis) mild G25.81 RLS (restless legs syndrome) F51.04 Chronic insomnia G47.19 Excessive daytime sleepiness M79.7 Fibromyalgia K21.00 Gastroesophageal reflux disease with esophagitis without hemorrhage M54.50, G89.29 Chronic bilateral low back pain without sciatica D53.9 Deficiency anemia G62.9 Neuropathy F51.5, F43.12 Nightmares associated with chronic post-traumatic stress disorder Z87.898 History of seizures Earlene on cpap (primary encounter diagnosis) PLAN: Thus, this very pleasant patient reports multiple symptoms that are concerning and symptoms that have obviously interfered with and decreased their qualify of life. I would suggest the following clinical recommendations be considered: Consider Vivactil 10mg po q am to assist her mood, improve energy level and to decrease quantity of REM sleep and move REM towards the later third of the night. Pt will discuss this with her psychiatrist to discuss whether the risk is low enough so not to trigger a hypomanic episode. It was a pleasure visiting with you today in the [facility]. It is certainly a privilege to assist you in your medical care. Please schedule a follow up appointment with me specifically, in our [facility] that I supervise (thus I will see you as well with them) or with one our Advance Practice Nurse Sleep Medicine Nurse Practitioners (christian science reader) either in person at the [facility] or virtually via Zoom in 90 day. The appointment telephone number for the Sleep Disorder Center is [phone]. Note that Meddle may also be used to schedule your next appointment. Remember to please follow up with your other medical specialists and your primary care provider on a regular basis. If you have any further questions regarding the diagnosis or recommendations today, please do not hesitate to send us a Meddle message or call our collaborating Benefits Sales Consultant nurse Wellington RN, BSN at [phone] Extension #5. I spent a total time of over 30 minutes on the date of the service on this case. This included preparing to see the patient by reviewing the medical record prior to examining the patient, interviewing the patient face to face in the clinic or virtually via audio and video secure [facility] technology, ordering appropriate medications/tests/procedures, completing clinical documentation of the visit, counseling and educating the patient/family/caregiver, communicating with other health care providers as well as general care coordination. Javier Reyes DO, [employer] LAW[employer], ABSM Associate Cardroom Hand, Sleep Medicine Fellowship Clinical Staff Physician, Sleep [facility] Department of Neurology Department of Psychiatry [address] Mail Code [address] [place] [id number] documented in this encounter [facility] 06-25-2023 History of Present illness Narrative Scan on 06/23/2023 2:34 PM by ProviderDana PA-C: Miscellaneous Lab documented in this encounter [facility] 06-21-2023 History of Present illness Narrative Scan on 06/15/2023 4:36 PM by Dana Henao PA-C: Constanza Mcclellan MA documented in this encounter [facility] 06-13-2023 Miscellaneous Notes The following approved medication requests have been transmitted electronically. Requested Prescriptions Signed Prescriptions Disp Refills gabapentin (NEURONTIN) 400 mg capsule 60 capsule 0 Sig: Take 1 capsule by mouth twice daily for 30 days. Authorizing Provider: ADDIE FLETCHER PA-C HEMALATHA: 05/18/23 In Person - 09/12/2021 MD Misael Reyes F/U: 07/13/23 IMPRESSION/PLAN: I: BAD I euthymic PTSD Substance Abuse Disorder II: Deferred III: G47.33 EARLENE (obstructive sleep apnea) (primary encounter diagnosis) mild G25.81 RLS (restless legs syndrome) F51.04 Chronic insomnia G47.19 Excessive daytime sleepiness M79.7 Fibromyalgia K21.00 Gastroesophageal reflux disease with esophagitis without hemorrhage M54.50, G89.29 Chronic bilateral low back pain without sciatica D53.9 Deficiency anemia G62.9 Neuropathy F51.5, F43.12 Nightmares associated with chronic post-traumatic stress disorder Z87.898 History of seizures Earlene on cpap (primary encounter diagnosis) PLAN: Thus, this very pleasant patient reports multiple symptoms that are concerning and symptoms that have obviously interfered with and decreased their qualify of life. I would suggest the following clinical recommendations be considered: Consider Vivactil 10mg po q am to assist her mood, improve energy level and to decrease quantity of REM sleep and move REM towards the later third of the night. Pt will discuss this with her psychiatrist to discuss whether the risk is low enough so not to trigger a hypomanic episode. It was a pleasure visiting with you today in the [facility]. It is certainly a privilege to assist you in your medical care. Please schedule a follow up appointment with me specifically, in our [facility] that I supervise (thus I will see you as well with them) or with one our Advance Practice Nurse Sleep Medicine Nurse Practitioners (christian science reader) either in person at the [facility] or virtually via Zoom in . The appointment telephone number for the Sleep Disorder Center is [phone]. Note that Meddle may also be used to schedule your next appointment. Remember to please follow up with your other medical specialists and your primary care provider on a regular basis. If you have any further questions regarding the diagnosis or recommendations today, please do not hesitate to send us a Meddle message or call our collaborating Benefits Sales Consultant nurse ARELY Paris, BSN at [phone] Extension #5. I spent a total time of over 30 minutes on the date of the service on this case. This included preparing to see the patient by reviewing the medical record prior to examining the patient, interviewing the patient face to face in the clinic or virtually via audio and video secure [facility] technology, ordering appropriate medications/tests/procedures, completing clinical documentation of the visit, counseling and educating the patient/family/caregiver, communicating with other health care providers as well as general care coordination. Javier Reyes DO, CBSM, ABSM Physician: Dr. Reyes Call from patient requesting refill. Please E-Scribe Last office visit 05.18.[address] Reyes in person Requested Prescriptions Pending Prescriptions Disp Refills gabapentin (NEURONTIN) 400 mg capsule 60 capsule 0 Sig: Take 1 capsule by mouth twice daily for 30 days. [facility]acy Name: [facility] documented in this encounter [facility] 04-12-2023 History of Present illness Narrative Radiology Service Progress Note PATIENT NAME: Marisa Olmos DATE OF SERVICE: April 12, 2023 TIME: 3:01 PM PATIENT IDENTITY VERIFICATION COMPLETED USING TWO (2) IDENTIFIERS: Name and Date of confirmed by patient verbally. FALL SCREENING: Has the patient had 2 falls in the last year or 1 fall with injury or currently using an Ambulatory Assistive Device (Walker, Cane, Wheelchair, Crutches, etc.)? No PATIENT GENDER DATA: Female. status: : No status: NO. PATIENT RELEVANT IMPLANT DATA REVIEWED: Not Applicable RADIOLOGY DEPARTMENT: Ultrasound PERIPHERAL IV DATA: Not applicable SIGNED BY: Earelne Farfan RDMS RVT April 12, 2023 3:01 PM documented in this encounter [facility] 04-12-2023 History of Present illness Narrative Policy And Planning Manager offered: Patient declines. Marisa Olmos is a 33 year old female who presents for problem visit - heavy bleeding. HPI: Patient is new to me. She is here to discuss menorrhagia and dysmenorrhea. She is interested in a hysterectomy. Started NuvaRing in 09/2022 and she states she is still having heavy bleeding and cramping. Most recently had 3 weeks of bleeding, and still having bleeding today. Using both a tampon and pad and changing them every few hours. She reports she has tried ocp's, IUD, nexplanon, and lysteda in the past. Per her report she was still having bleeding while using these treatment options before in the past. She says the Mi[facility]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 Merlin Knott LAPAROSCOPY SURG CHOLECYSTECTOMY Cholecystectomy, lap LAPS SURG CHOLECYSTECTOMY W/CHOLANGIOGRAPHY 10/30/14 normal IOC PAST SURGICAL HISTORY OF 11/02/2016 bilateral tubal ligation Family History FAMILY HISTORY Problem Relation Age of Onset Thyroid Mother Cancer Maternal Grandmother SKIN Heart Paternal Grandmother Cancer Other SKIN AND PROSTATE Diabetes Other [id number] Hypertension Paternal Uncle Patient Allergies ALLERGIES Allergen Reactions Clindamycin Anaphylaxis Phenergan [Prometha* Mental Status Change Celexa [Citalopram * Unknown Effexor [Venlafaxin* Unknown Paxil [Paroxetine H* Other: See Comments Depression made worse Remeron [Mirtazapin* Other: See Comments [place] strange on it. Seasonal [Other] Unknown Xanax [Alprazolam] Unknown Current Medications Current Outpatient Medications on File Prior to Visit Medication Sig docusate sodium (COLACE) 100 mg capsule Take 1 capsule by mouth twice daily. gabapentin (NEURONTIN) 100 mg capsule Take 4 capsules twice daily (take 1- 3 hours before onset of RLS in the afternoon and at bedtime). CPAP/BIPAP/OTHER Type .CPAPSettings into a note to see current settings/supplies/DME information. lamoTRIgine (LAMICTAL) 150 mg tablet Take 150 mg by mouth twice daily. omeprazole (PRILOSEC) 40 mg capsule Take 1 capsule by mouth once daily. baclofen (LIORESAL) 10 mg tablet Take 1 tablet by mouth twice daily. ascorbic acid, vitamin C, (VITAMIN C) 500 mg tablet Take 1 tablet by mouth once daily. ferrous sulfate 325 mg (65 mg iron) tablet Take 1 tablet by mouth daily with breakfast. risperiDONE (RISPERDAL) 1 mg tablet Take 1 mg by mouth daily at bedtime. Etonogestrel-Ethinyl Estradiol (NUVARING) 0.12-0.015 mg/24 hr vaginal ring Use 1 Each vaginally as directed. INSERT ONE(1) RING VAGINALLY AND LEAVE IN PLACE FOR THREE WEEKS, THEN REMOVE FOR 1 WEEK. prazosin (MINIPRESS) 1 mg cap TAKE 1 CAPSULE BY MOUTH AT BEDTIME ALONG WITH PRAZOSIN 2 MG prazosin (MINIPRESS) 2 mg cap Take 2 mg by mouth at bedtime as needed. buprenorphine-naloxone (SUBOXONE) 8-[address] 1 & 1/2 (ONE & ONE-HALF) STRIPS UNDER THE TONGUE ONCE DAILY CPAP AutoCPAP 5-15 cm H2O, mask (pt pref), filters, heated humidity & tubing. Lifetime supplies. EARLENE G47.33. hydrOXYzine HCl (ATARAX) 50 mg tablet Take 1 tablet by mouth three times daily. albuterol HFA (VENTOLIN HFA) 90 mcg/actuation inhaler Inhale 2 Puffs as instructed every 4 hours as needed for Wheezing/Shortness of Breath. No current facility-administered medications on file prior to visit. Social History Social History Tobacco Use Smoking status: Some Days Packs/day: 0.10 Years: 10.00 Pack years: 1.00 Types: Cigarettes Smokeless tobacco: Never Tobacco comments: smokes e-cig now. Smokes 1-2 cigs per day Vaping Use Vaping Use: current everyday user Substances: Nicotine Substance Use Topics Alcohol use: No Drug use: Not Currently Types: Heroin Comment: sober 2019 Review of Symptoms REVIEW OF SYSTEMS GENERAL: No weight loss, malaise or fevers RESPIRATORY: Negative for cough, hemoptysis, increased wheezing, COPD, dyspnea or shortness of breath compared to base line CARDIOVASCULAR: Negative for chest pain, leg swelling, hypertension, CHF or palpitations GI: See HPI : See HPI PSYCH: seeing psych NEURO: No history of syncope, paralysis, seizures or tremors. Headaches have been stable EXAM: BP 128/84 (BP Site: Right Arm, BP Position: Sitting, BP Cuff Size: Large Adult) Pulse 82 Temp 36.6 C (97.8 F) (Tympanic) Resp 18 Wt 85.3 kg (188 lb) LMP 10/02/2022 (Approximate) BMI 35.04 kg/m General Appearance: Well appearing, alert, in no acute distress, well-hydrated, well nourished.. Neck: Supple, no adenopathy; thyroid symmetric, normal size, no bruits. Lungs: Lungs clear to auscultation. No wheezing, rhonchi, rales.. Heart: RRR without murmur, gallop, or rubs. No ectopy. Abdomen: Abdomen soft, non-distended. Has discomfort in the RUQ and mild discomfort on the LLQ. No guarding but mild rebound pain. Bowel sounds normal. No masses, organomegaly. Extremities: No deformities, edema, skin discoloration, . Good capillary refill. . Musculoskeletal: normal strength. Peripheral Pulses: Normal. Health Maintenance List COVID-19 VACCINE(3 - Booster for Pfizer series) due on 08/04/2023 INFLUENZA(Season Ended) due on 06/29/2023 ANNUAL PCP TEAM CHRONIC DISEASE VISIT due on 01/02/2024 DTAP,TDAP,TD(2 - Td or Tdap) due on 05/21/2025 PAP TESTING due on 04/06/2027 HPV TESTING due on 04/06/2027 HEPATITIS B Completed HEPATITIS C SCREENING Completed HIV SCREENING Completed PNEUMOCOCCAL Completed SPIROMETRY Discontinued Data reviewed Component Latest Ref Rng & Units 08/04/2022 11/14/2022 01/01/2023 WBC 3.70 - 11.00 k/uL 8.67 RBC 3.90 - 5.20 m/uL 4.38 Hemoglobin 11.5 - 15.5 g/dL 12.4 Hematocrit 36.0 - 46.0 % 37.9 MCV 80.0 - 100.0 fL 86.5 MCH 26.0 - 34.0 pg 28.3 MCHC 30.5 - 36.0 g/dL 32.7 RDW-CV 11.5 - 15.0 % 11.4 (L) Platelet Count 150 - 400 k/uL 263 MPV 9.0 - 12.7 fL 10.0 Neut% % 42.8 Abs Neut (ANC) 1.45 - 7.50 k/uL 3.71 Lymph% % 41.8 Abs Lymph 1.00 - 4.00 k/uL 3.62 [place]% % 7.0 Abs [place] <0.87 k/uL 0.61 Eosin% % 7.0 Abs Eosin <0.46 k/uL 0.61 (H) Baso% % 1.2 Abs Baso <0.11 k/uL 0.10 Immature Gran % % 0.2 IMMATURE GRANS (ABS) <0.10 k/uL <0.03 NRBC /100 WBC 0.0 Absolute nRBC <0.01 k/uL <0.01 DTYPE Auto Protein, Total 6.3 - 8.0 g/dL 7.2 7.3 Albumin 3.9 - 4.9 g/dL 4.3 4.6 Calcium 8.5 - 10.2 mg/dL 9.7 Bilirubin, Total 0.2 - 1.3 mg/dL <0.2 (L) <0.2 (L) Alkaline Phosphatase 34 - 123 U/L 47 60 AST 13 - 35 U/L 22 30 ALT 7 - 38 U/L 15 21 Glucose 74 - 99 mg/dL 83 BUN 7 - 21 mg/dL 13 Creatinine 0.58 - 0.96 mg/dL 0.79 Sodium 136 - 144 mmol/L 138 Potassium 3.7 - 5.1 mmol/L 4.4 Chloride 97 - 105 mmol/L 104 CO2 22 - 30 mmol/L 19 (L) Anion Gap 9 - 18 mmol/L 15 eGFR >=60 mL/min/1.73m 102 Total Cholesterol, Nonfasting <200 mg/dL 238 (H) Triglycerides, Nonfasting <150 mg/dL 480 (H) HDL Cholesterol, Nonfasting >39 mg/dL 34 (L) LDL Cholesterol, Nonfasting Non HDL Cholesterol, Nonfasting <130 mg/dL 204 (H) VLDL Cholesterol, Nonfasting Total Chol/HDL Ratio, Nonfasting <5.10 mg/dL 7.00 (H) LDL/HDL Ratio, Nonfasting Bilirubin, Conjug <0.2 mg/dL <0.2 A/P ASSESSMENT/PLAN: 1. Hyperlipidemia, mixed - ICD9: 272.2, ICD10: E78.2 (primary diagnosis) - to be determined upon return of lab results - Encouraged following a low fat, low cholesterol diet. - Discussed the benefits of regular aerobic exercise and weight loss. - Encouraged following a low carbohydrate, healthy oil intake diet. - LIPID PANEL, NONFASTING 2. Gastroesophageal reflux disease with esophagitis without hemorrhage - ICD9: 530.81, 530.10, ICD10: K21.00 - Continue treatment with Prilosec 40 mg QD 3. Chronic constipation - ICD9: 564.00, ICD10: K59.09 Check - CT ABD/PEL W IVCON - IV CONTRAST (RADIOLOGY PROCEDURE) - ENTERIC CONTRAST (RADIOLOGY PROCEDURE) - will add on lactulose. 30 ml QH. Cont the Miralax in the AM and colace BID. 4. Mild intermittent extrinsic asthma without complication - ICD9: 493.00, ICD10: J45.20 Mild intermittent Asthma stable - Avoidance of triggers recommended 5. Generalized headache - ICD9: 784.0, ICD10: R51.9 - clinically stable with current tx., 6. RLS (restless legs syndrome) - ICD9: 333.94, ICD10: G25.81 - management per sleep med 7. Fibromyalgia - ICD9: 729.1, ICD10: M79.7 - management per pain med. 8. Drug abuse (HCC) - ICD9: 305.90, ICD10: F19.10 - has been clean and continues with Tx. 9. History of heroin abuse (HCC) - ICD9: 305.53, ICD10: F11.11 - as per #8 10. Psychophysiological insomnia - ICD9: 307.42, ICD10: F51.04 - management per Psych 11. Bipolar affective disorder, remission status unspecified (HCC) - ICD9: 296.80, ICD10: F31.9 - as per #10 12. PTSD (post-traumatic stress disorder) - ICD9: 309.81, ICD10: F43.10 - as per #10 13. Depression, unspecified depression type - ICD9: 311, ICD10: F32.A - as per #10 14. Anxiety - ICD9: 300.00, ICD10: F41.9 - as per #10 15. Attention deficit disorder, unspecified hyperactivity presence - ICD9: 314.00, ICD10: F98.8 - as per #10 16. Nightmares - ICD9: 307.47, ICD10: F51.5 - as per #10 17. RUQ pain - ICD9: 789.01, ICD10: R10.11 Check - HEPATIC FUNCTION PNL - LIPASE BLD - AMYLASE BLD - CT ABD/PEL W IVCON - IV CONTRAST (RADIOLOGY PROCEDURE) - ENTERIC CONTRAST (RADIOLOGY PROCEDURE) 18. Gross hematuria - ICD9: 599.71, ICD10: R31.0 Check - CT ABD/PEL W IVCON - IV CONTRAST (RADIOLOGY PROCEDURE) - ENTERIC CONTRAST (RADIOLOGY PROCEDURE) 19. Amenorrhea - ICD9: 626.0, ICD10: N91.2 Check - CT ABD/PEL W IVCON - IV CONTRAST (RADIOLOGY PROCEDURE) - ENTERIC CONTRAST (RADIOLOGY PROCEDURE) - HCG QUAL UR 20. 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 Patient also advised if the abdominal pain gets worse before CT can be done to go to [place] [facility]. Requested Prescriptions Signed Prescriptions Disp Refills lactulose (DUPHALAC, CONSTULOSE) 10 g/15 mL soln 946 mL 5 Sig: Take 30 ml once a day in the evening iv contrast (will be provided with radiology test) 1 Each 0 Sig: CT ABD/PEL -Inject, intravenously, once for 1 dose.No IV access, insert saline lock prior to the beginning of sedation, infusion, injection of imaging exam. Discontinue saline lock post exam. If Pt. has a central line or IVAD, may access for administration according to line specific nursing protocol. Once exam is complete flush line and de-access according to line specific nursing protocol in the CT contrast administration guidelines link. enteric contrast (will be provided with radiology test) 1 Each 0 Sig: For CT ABD/PEL W IVCON Routine order Administer, As Directed One Time Only, via Oral, Rectal, both Oral and Rectal, Enteric Tube, Stoma or Indwelling Catheter, Enteric Contrast as designated per enteric contrast guidelines F/u in a month constipation. F/u 6 months WAE I spent a total of 45 minutes on the date of the service which included preparing to see the patient, [id number] patient care, completing clinical documentation, performing a medically appropriate examination, counseling and educating the patient/family/caregiver and ordering medications, tests, or procedures. Ermias Lockwood MD documented in this encounter [facility] 01-10-2023 Miscellaneous Notes The following approved medication requests have been transmitted electronically. Requested Prescriptions Signed Prescriptions Disp Refills docusate sodium (COLACE) 100 mg capsule 60 capsule 5 Sig: Take 1 capsule by mouth twice daily. Authorizing Provider: ERMIAS LOCKWOOD MD Spoke with patient and she indicated that she is feeling a little better but still feeling uncomfortable. She is ok with starting the other medication (colace). Pharmacy verified Adriano Wiggins in [place]. Told patient to update us in a few days if things are not improving or getting worse. Xiomy Mcclellan MA Find out from patient if feeling better and less bloated. I do want her to continue the Miralax daily. See if she is ok with me adding on colace 100 mg twice a day? If so I will send in script. Patient calling to give PCP update, in past week she has taken Milk of Mag, Miralax, enema, dulcolax tablets. She did have 1 large bowel movement on 12/10. She remains taking the miralax daily. documented in this encounter [facility] 01-10-2023 Miscellaneous Notes Spoke with pt. regarding mask fitting and issues. Pt. states does not want o do at this time. Is using a nasal pillow system she had. Will update provider if any issues. documented in this encounter [facility] 01-05-2023 Instructions Anna Tompkins APRN.STEEL WHEEL ENGRAVER - 01/05/2023 11:41 AM EST PATIENT INSTRUCTIONS: Plan: (1) Use Auto CPAP 5-15 cmH2O nightly all night long. (2) Will ask Joe Garcia LPN to reach out to you for a mask fitting and testing. Message sent to Joe. (3) Increase use of PAP will help improve your sleep fragmentation and decrease he RLS. (4) I will get PAP download from [facility] [place]. (5) I will discuss with [facility] [place] - patient having difficulty using [employer] JOANNA. (6) Check iron levels. Orders written. Obtain a blood test for both ferritin and %transferrin saturation (also called iron/TIBC). This should be done first thing in the morning on an empty stomach/fasting overnight. If you take iron supplements, do not take them the day before the blood test. For restless legs syndrome, the goal for ferritin should be > 75 ng/mL and transferrin saturation > 20% (different than what is listed in the lab results reference ranges as normal). (7) Change GBPN 100 mg 4 capsules twice daily (take 1-3 hours before onset of RLS in the afternoon and bedtime). Transmitted to pharmacy. (8) Continue taking ferrous sulfate twice weekly with vitamin C. (8) Schedule visit with Dr. Reyes in 3 months in person. Will ask the schedulers to contact you. (9) Continue to follow up with Psychiatrist regarding your Suboxone and other psychiatric meds. - Remember to clean your mask and equipment regularly, as directed. - You should be eligible for new supplies approximately every 3-6 months, depending on your insurance coverage. Contact your Durable Medical Equipment (DME) company for new supplies as needed. If you have questions, feel free to send me a [employer] message. I spent a total of 40 minutes as this was a new patient to me on the date of the service which included preparing to see the patient, [id number] patient care, completing clinical documentation, counseling and educating the patient/family/caregiver and ordering medications, tests, or procedures. Anna Tompkins APRN.EDITH These are few conservative measures that can be tried for RLS: 1.Avoid provocative substances for RLS such as: a. Coffee b. Alcohol c. Tobacco d. Antihistamines 2. Practice Good Sleep Hygiene for RLS: a. Avoid sleep deprivation b. Regular hours of sleep c. Optimize bedroom for sleep d. Prepare for sleep with relaxing/symptom reducing activities 3. Alternative treatments for RLS: a. Light stretching before bed b. Massage c. Heat or cold d. Warm bath e. Exercise and physical conditioning Additional information on RLS: Go to RLS.org for more information from the RLS Foundation; there are many articles and lectures available on this condition that would be helpful, some of which would require membership to the foundation. documented in this encounter [facility] 01-05-2023 History of Present illness Narrative Images from the original note were not included. [facility] Visit performed virtually, with the patient's permission. Simmr Rules (O.A.C. ): This visit was conducted as a virtual visit, with patient's permission, via Zoom. It required patient-provider interaction for the medical decision making as documented below. Patient stated first & last name: Marisa Olmos Patient stated : 1990 Patient stated current location [place], [place] I have communicated my name, Annachristine Tompkins CNP, and active licensure Adult Certified Nurse Practitioner in the Sleep Medicine Center at [facility]. The patient's identity and physical location were verified at the time of this visit. Either the patient or their legal environmental marketing representative has been informed of the risks and benefits of -- and alternatives to -- treatment through a remote evaluation and consents to proceed with the evaluation remotely. Virtual visits are a convenient way for us to meet, but there are some situations in which an in-person evaluation may be required at a later time. I want to check in to confirm your consent to be seen virtually today. Consent given: Yes Follow up/ Established patient visit Date of last visit : 07/12/22 Per last visit: IMPRESSION: Obstructive sleep apnea (primary encounter diagnosis) Rls (restless legs syndrome) Chronic insomnia Marisa Olmos is a 32 year old female with a PMH of fibromyalgia, headache, RLS, HLD, asthma, tobacco use, ADD, bipolar, depression, PTSD, anxiety, hx of seizures, GERD, hx of drug abuse, back pain and obesity who presents via Zoom virtual visit for follow-up of insomnia, EARLENE and RLS. A Polysomnogram performed on 10/01/2021 revealed mild EARLENE (AHI of 5.1) that was exacerbated to moderate in REM sleep (AHI 15.6) and was associated with a minimum O2 saturation of 86%. Patient reports compliance with PAP therapy and perceived benefit of treatment (resolution of snoring). However, she continues to have sleep fragmentation. She is struggling with wearing her CPAP all night, though she denies mask or pressure intolerance. She averages 3-6 hours per night. Overall, she feels her insomnia and RLS have improved with gabapentin and amitriptyline, but she continues to wake after approximately 3 hours of sleep. She often removes her mask when she wakes, and does not put it back on for the night. Her RLS is overall well controlled on current treatment regimen. Her last ferritin was 38.9 and transferrin saturation was 20.8 (04/13/2022). She is taking ferrous sulfate twice weekly with vitamin C. PLAN: - Continue Auto CPAP at 5-15 cmH2O. - Work on putting mask back on after waking during the night-- Increased use of CPAP should improve your sleep fragmentation and insomnia. - Remember to clean your mask and equipment regularly, as directed. - You should be eligible for new supplies approximately every 3-6 months, depending on your insurance coverage. Contact your Durable Medical Equipment (DME) company for new supplies as needed. - Continue gabapentin 800mg QHS for insomnia and RLS. - Increase iron supplement from twice weekly to once daily if tolerated. Take with vitamin C. This may improve your RLS symptoms. - Follow-up in 6 months. Cate Pringle APRN.STEEL WHEEL ENGRAVER I have interviewed the patient and personally reviewed all aspects of the history and physical examination. I confirmed all findings as recorded by the Nurse Practitioner. I participated in the management of the patient and agree with assessment and plan as documented by the Nurse Practitioner Adalid Strauss APRN.STEEL WHEEL ENGRAVER Interval history : Here for follow up for EARLENE (continue APAP 5-15 cmH20),GBPN 800 mg qhs for Insomnia and RLS. SLEEP APNEA Sleep apnea type : EARLENE Most Recent Apnea-Hypopnea Index (AHI): 5.1 Treatment : PAP therapy DME: [facility] PAP History: Patient reports she had COVID 06/2022. Difficulty using PAP therapy after having COVID. Wakes up feeling like she is unable to breathe, panics, and removes mask. I don't like to have anything on my face. Worsens my anxiety. Uses AutoPAP for ~0-2 hours per night, ~0-7 nights per week. Current PAP settin-15 cm H2O. Difficulties with AutoPAP: Reviewed objective PAP compliance data: [employer]: Currently not available. Mask type: FFM, nasal mask, nasal pillow mask Mask issues: Something on her face makes her feel anxious, can't sleep, and causes everything else to go out of wack for her. Uses chin strap: Yes Uses ramp function: Yes, Protocol: Auto Uses humidity: Yes, Protocol: Distilled water. There is not a perceived benefit by the patient: Not beneficial. Complaints of EDS. INSOMNIA Current treatment : -Medication: Gabapentin 800 mg QHS -Timin hour prior to bedtime (around 2099) - Bedtime 2100 -Side effects: None -Benefit: Yes -Medication: Risperidone 1 mg QHS -Timin hour prior to bedtime (around 2099) -Side effects: None -Benefit: Yes Status : Worse. Legs are bothering her more. She also follows up with her Psychiatrist for regarding her Suboxone and her other psychiatric meds. She is now back Risperdal and Elavil has been stopped. RLS RLS is her biggest complaint. Bothering her the most. Requesting a larger dose of GBPN. Wanting an additional 300 mg to be taken in the afternoon after getting off work. However, she is not using her PAP machine and already has complaints of EDS. Affected: Legs only. Off work at 1430. Begin to bother her [id number]. Worst at [id number]. Symptom free: never symptom free, occurs 21/05 OOB 0530 -Medication: Gabapentin 800mg QHS -Timin hour prior to bedtime (around 2099) - Bedtime 2100 -Side effects: None -Benefit: Yes Medication: Ferrous sulfate 325mg twice weekly w/ vitamin C Side effects: none Medication history: Klonopin Requip Last iron infusion: None OTHER RELEVANT LABS AND STUDIES: Ferritin Date Value Ref Range Status 04/13/2022 38.9 14.7 - 205.1 ng/mL Final 01/30/2019 66.6 14.7 - 205.1 ng/mL Final 11/14/2017 88.7 14.7 - 205.1 ng/mL Final 09/20/2016 33.9 9.0 - 150.0 ng/mL Final 10/27/2014 31.1 9.0 - 150.0 ng/mL Final Transferrin Saturation Date Value Ref Range Status 04/13/2022 20.8 15.0 - 57.0 % Final 01/30/2019 12 (L) 15 - 57 % Final 11/14/2017 48 15 - 57 % Final 09/20/2016 9 (L) 15 - 57 % Final 10/27/2014 7 (L) 11 - 46 % Final Hemoglobin Date Value Ref Range Status 11/14/2022 12.4 11.5 - 15.5 g/dL Final 02/20/2022 11.9 11.5 - 15.5 g/dL Final Iron Date Value Ref Range Status 04/13/2022 68 41 - 186 ug/dL Final 01/30/2019 39 (L) 41 - 186 ug/dL Final 11/14/2017 170 41 - 186 ug/dL Final 09/20/2016 37 (L) 41 - 186 ug/dL Final TIBC Date Value Ref Range Status 04/13/2022 327 232 - 386 ug/dL Final 01/30/2019 325 232 - 386 ug/dL Final 11/14/2017 354 232 - 386 ug/dL Final 09/20/2016 404 (H) 232 - 386 ug/dL Final PATIENT-ENTERED QUESTIONNAIRE SLEEP SCORES Sleep Questions 12/31/2022 Reason for visit: Sleep apnea, Difficulty falling or staying asleep or poor sleep quality, Excessive daytime sleepiness, Restless Legs Syndrome, Abnormal sleep/wake timing, Abnormal behaviors/movements during sleep Average hours slept in 24 hours: 5 Average hours of CPAP per night: 0 Percent of nights CPAP used at least 4 hours: 0 Accidents or near accidents due to drowsy drivin [facility] Sleepiness Scale 06/01/2022 07/11/202212/31/2022 Score 8 (No daytime sleepiness) 9 (No daytime sleepiness) 8 (No daytime sleepiness) PROMIS CAT Sleep Disturbance 06/01/2022 07/11/2022 12/31/2022 PROMIS Sleep Disturbance T-Score 61 (moderate) 68 (moderate) 66 (moderate) Insomnia Severity Index 06/01/2022 07/11/2022 12/31/2022 Score 20 24 25 Restless Leg Syndrome 06/01/2022 07/11/2022 12/31/2022 Score 29 28 31 PHQ-9 07/11/2022 08/04/2022 12/31/2022 Score 14 19 7 PROMIS Global Health - (T-Scores - the mean of general population = 50. Five points is a clinically meaningful difference.) 03/08/2022 06/01/2022 12/31/2022 Physical T-Score 47.7 44.9 34.9 Mental T-Score 45.8 43.5 45.8 PMH, PSH, SH: Reviewed SLEEP RELATED ROS Review of Systems Constitutional: Positive for fever. Respiratory: Negative. Cardiovascular: Negative. Genitourinary: Positive for nocturia. Musculoskeletal: Positive for uncomfortable leg sensations. ALLERGIES Allergen Reactions Clindamycin Anaphylaxis Phenergan [Prometha* Mental Status Change Celexa [Citalopram * Unknown Effexor [Venlafaxin* Unknown Paxil [Paroxetine H* Other: See Comments Depression made worse Remeron [Mirtazapin* Other: See Comments [place] strange on it. Seasonal [Other] Unknown Xanax [Alprazolam] Unknown CURRENT MEDICATIONS: gabapentin (NEURONTIN) 100 mg capsule Take 4 capsules twice daily (take 1- 3 hours before onset of RLS in the afternoon and at bedtime). lamoTRIgine (LAMICTAL) 150 mg tablet Take 150 mg by mouth twice daily. omeprazole (PRILOSEC) 40 mg capsule Take 1 capsule by mouth once daily. baclofen (LIORESAL) 10 mg tablet Take 1 tablet by mouth twice daily. ascorbic acid, vitamin C, (VITAMIN C) 500 mg tablet Take 1 tablet by mouth once daily. ferrous sulfate 325 mg (65 mg iron) tablet Take 1 tablet by mouth daily with breakfast. risperiDONE (RISPERDAL) 1 mg tablet Take 1 mg by mouth daily at bedtime. Etonogestrel-Ethinyl Estradiol (NUVARING) 0.12-0.015 mg/24 hr vaginal ring Use 1 Each vaginally as directed. INSERT ONE(1) RING VAGINALLY AND LEAVE IN PLACE FOR THREE WEEKS, THEN REMOVE FOR 1 WEEK. prazosin (MINIPRESS) 1 mg cap TAKE 1 CAPSULE BY MOUTH AT BEDTIME ALONG WITH PRAZOSIN 2 MG prazosin (MINIPRESS) 2 mg cap Take 2 mg by mouth at bedtime as needed. buprenorphine-naloxone (SUBOXONE)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 Will recheck your ferritin level in 3-6 months. - Nonmedical therapy for restless legs syndrome includes : cold/warm compresses, warm/hot baths or showers, gentle massage, mild leg stretching at nighttime, or magnesium supplements ( 250- 1000 mg at nighttime daily). Mentally alerting activities help too. Note the caffeine, alcohol, nicotine, antidepressants, anti-nausea meds and antihistamines can cause or worsen symptoms. - Adding Gabapentin 300- 600 mg HS as above - 30 day trial F/U scheduled with Dr. chan to re-establsih with sleep MD Irwin De Los Santos APRN.EDITH I spent a total of 36 minutes on the date of the service which included preparing to see the patient, [id number] patient care, completing clinical documentation, obtaining and/or reviewing separately obtained history, counseling and educating the patient/family/caregiver, ordering medications, tests, or procedures and communicating results to the patient/family/caregiver. documented in this encounter [facility] 04-27-2022 Miscellaneous Notes Images from the original note were not included. documented in this encounter [facility] 04-12-2022 Instructions Spring Arambula APRN.CNP - 04/12/2022 6:37 PM EDT PAP Supply Guidelines Below are the guidelines for reordering your supplies. You will be responsible for your deductible, co-payments, and out of pocket expenses. Item Medicare & Commercial Insurance Medicaid & HCAP Nasal Mask (no headgear) 1 every 3 months 1 per year Nasal Mask Cushion 1 every month 2 per year Full Face Mask (no headgear) 1 every 3 months 1 per year Full Face Mask Cushion 1 every month *Self-Pay Nasal Pillows 2 every month 2 per year Headgear 1 every 6 months 1 per year Chin Strap 1 every 6 months 2 per year Tubing 1 every 3 months 1 per year Filters: Reusable 1 every 6 months 4 per year Filters: Disposable 2 every month 1 per month Humidifier Chamber(disposable) 1 every 6 months *Self-Pay documented in this encounter [facility] 04-12-2022 History of Present illness Narrative Images from the original note were not included. [facility] Follow up/ Established patient visit Date of last visit : 03/08/2022 IMPRESSION: Earlene (obstructive sleep apnea) (primary encounter diagnosis) Clinical Global Impression of Change ( CGI-C) Compared to the patient's condition at baseline, how much has the patient changed? Minimally improved This is a pleasant 32 yo female who presents via virtual visit for follow up management of her mixed sleep apnea. She had emergent central events on PAP titration study, which may indicate complex sleep apnea or lack of PAP acclimation. She was recently started on PAP therapy with a set pressure of 5 cmH20. She reports she starts comfortable, and then after approx 2 hours she feels she is not getting enough air. She is compliant nightly, and denies mask intolerance. Her recent download shows excellent control of her EARLENE with a residual AHI of 3.2. PLAN: - Continue Auto CPAP, adjust from 5 cm H20 to 5-15 cm H20- Remember to clean your mask and equipment regularly, as directed. - You should be eligible for new supplies approximately every 3-6 months, depending on your insurance coverage. Contact your Durable Medical Equipment (DME) company for new supplies as needed. - Follow up in 1 months to ensure pressure settings are more comfortable and continue to control your EARLENE. Spring Arambula APRN.STEEL WHEEL ENGRAVER Interval history : Here for follow up for EARLENE management. She is doing well since last visit. She found the pressure adjustment made a difference in tolerating pressure, however she still struggles with her mask. SLEEP APNEA Sleep apnea type : EARLENE, Most Recent Apnea-Hypopnea Index (AHI): 5.1 Treatment : PAP therapy DME: [facility] PAP History: Uses AutoPAP for 3 hours 59 minutes hours per night, 7 nights per week. Current PAP settin-15 cm H2O. Difficulties with AutoPAP: None Reviewed objective PAP compliance data: days of usage Average usage: 3 hr 50 min Average pressure: 8.6 AHI: 1.8 Mask type: full face mask Mask issues: feels like the mask is deteriorating and is not comfortable Uses chin strap: No Uses humidity: No There is a perceived benefit by the patient: sleep is better. Observers report abolition of snoring with AutoPAP use. RLS Treatment: nothing prescribed for RLS. (on Suboxone for substance abuse hx and was on Gabapentin for RLS in past). Status: Same Ferritin Date Value Ref Range Status 01/30/2019 66.6 14.7 - 205.1 ng/mL Final 11/14/2017 88.7 14.7 - 205.1 ng/mL Final 09/20/2016 33.9 9.0 - 150.0 ng/mL Final 10/27/2014 31.1 9.0 - 150.0 ng/mL Final Transferrin Saturation Date Value Ref Range Status 01/30/2019 12 (L) 15 - 57 % Final 11/14/2017 48 15 - 57 % Final 09/20/2016 9 (L) 15 - 57 % Final 10/27/2014 7 (L) 11 - 46 % Final Hemoglobin Date Value Ref Range Status 02/20/2022 11.9 11.5 - 15.5 g/dL Final 01/10/2022 11.8 11.5 - 15.5 g/dL Final SLEEP-WAKE SCHEDULE Bedtime: 8:30 PM. No difficulty falling asleep. Nocturnal wakings: every few hours Activities before bed: watches TV before bed Wake time: 6 AM, with an alarm. On weekends, she maintains the same sleep schedule. Average total sleep time (in a 24 hour period): 3-4 hours. Naps: none Endorses nightmares and PTSD Denies drowsy driving or accidents PATIENT-ENTERED QUESTIONNAIRE SLEEP SCORES Sleep Questions 04/07/2022 Reason for visit: Sleep apnea Average hours slept in 24 hours: - Percent of nights CPAP used at least 4 hours: - Accidents or near accidents due to drowsy driving: - [facility] Sleepiness Scale 03/08/2022 04/07/2022 Score 9 (No daytime sleepiness) 8 (No daytime sleepiness) PROMIS CAT Sleep Disturbance 03/08/2022 04/07/2022 PROMIS Sleep Disturbance T-Score 64 (moderate) 61 (moderate) Insomnia Severity Index 03/08/2022 Score 19 Restless Leg Syndrome 03/08/2022 Score 34 PHQ-9 06/22/2017 03/08/2022 04/07/2022 Score 9 17 6 PROMIS Global Health - (T-Scores - the mean of general population = 50. Five points is a clinically meaningful difference.) 01/03/2017 01/03/2017 03/08/2022 Physical T-Score 32.4 32.4 47.7 Mental T-Score 36.3 36.3 45.8 PMH, PSH, SH: reviewed SLEEP RELATED ROS Review of Systems Constitutional: Positive for fatigue. Respiratory: Negative. Cardiovascular: Negative. Neurological: Negative for headaches. ALLERGIES Allergen Reactions Clindamycin Anaphylaxis Phenergan [Prometha* Mental Status Change Celexa [Citalopram * Unknown Effexor [Venlafaxin* Unknown Paxil [Paroxetine H* Other: See Comments Depression made worse Remeron [Mirtazapin* Other: See Comments [place] strange on it. Seasonal [Other] Unknown Xanax [Alprazolam] Unknown CURRENT MEDICATIONS: buprenorphine-naloxone (SUBOXONE) 8-[address] 1 & 1/2 (ONE & ONE-HALF) STRIPS UNDER THE TONGUE ONCE DAILY tranexamic acid (LYSTEDA) 650 mg tablet Take 2 tablets 3 times a day as needed for heavy bleeding up to 5 days. baclofen (LIORESAL) 10 mg tablet Take 1 tablet by mouth twice daily. CPAP AutoCPAP 5-15 cm H2O, mask (pt pref), filters, heated humidity & tubing. Lifetime supplies. EARLENE G47.33. pantoprazole DR (PROTONIX) 40 mg tablet Take 1 tablet by mouth daily before breakfast. Take on empty stomach, 1/2 hr before meal. CPAP AutoPAP set at fixed Settings of 5 cm H2O, suitable mask per pt preference, chin strap, head gear, humidity, tubing, lifetime supplies. G47.33 EARLENE etodolac (LODINE) 400 mg tablet Take 1 tablet by mouth twice daily. lamoTRIgine (LAMICTAL) 100 mg tablet Take 100 mg by mouth once daily. oxybutynin ER (DITROPAN XL) 10 mg 24 hr tablet Take 10 mg by mouth once daily. risperiDONE (RISPERDAL) 0.5 mg tablet Take 1 tablet by mouth twice daily. Per psych hydrOXYzine HCl (ATARAX) 50 mg tablet Take 1 tablet by mouth three times daily. albuterol HFA (VENTOLIN HFA) 90 mcg/actuation inhaler Inhale 2 Puffs as instructed every 4 hours as needed for Wheezing/Shortness of Breath. PHYSICAL EXAMINATION: Neurological exam: Patient approapriately answering questions. Language function normal. Memory normal. Speech fluent. IMPRESSION: Earlene (obstructive sleep apnea) (primary encounter diagnosis) Excessive daytime sleepiness Fatigue, unspecified type Fibromyalgia Rls (restless legs syndrome) Deficiency anemia This is a 32-year-old female with a past medical history of obstructive sleep apnea on PAP therapy, chronic insomnia, nightmare disorder, PTSD, bipolar, fibromyalgia, RLS and excessive daytime sleepiness who presents via virtual visit for follow-up management of her sleep disorders. Regarding her obstructive sleep apnea she is doing better with pressure setting adjustment made at last visit. Still finds mask uncomfortable - pulls off in the middle night and feels it is hard to keep on. She finds the foam material is deteriorating and she is not yet eligible for a new mask per her insurance. She tried nasal pillows in the past but found it difficult to keep her mouth closed. She does have a chinstrap at home and has not tried the nasal pillow with chinstrap. I have suggested this may be a good alternative for her. Her restless legs are still bothersome several nights a week. She is not currently on medication specific for her restless legs, however she does take Suboxone for prior substance abuse. She takes this in the morning, and reports when she previously took in the evening she also did not notice significant benefit. She was previously on gabapentin which she found helpful but is not currently taking. She is also currently on Risperdal which was transitioned from amitriptyline due to weight gain per psychiatry. She notes that this has affected her sleep poorly and has made legs worse. She plans on talking to psychiatry later this month to see if she can turn her since transition off Risperdal and back onto amitriptyline. Her iron studies from 2019 so show deficiency for RLS recommendations. She does not currently take an iron supplement. I have advised we check her iron studies and allow her to adjust medications with psychiatry prior to reinitiating gabapentin or other medications for her RLS. She continues to endorse insomnia and on average sleeps only 4 hours per night. She has difficulty initiating sleep and falling asleep. She also has frequent nightmares. She does have a psychiatrist however does not find this especially helpful for insomnia or nightmares. We have discussed behavioral sleep medicine within our center and she is agreeable to consult. I also recommend she establish care with her sleep psychiatrist as Dr. Mayers is no longer practicing in the sleep medicine center. PLAN: EARLENE: Switch to nasal pillow mask with a chin strap or add REM ZZZ's mask liners until you can get a new mask under insurance. Obtain more hours of usage and sleep. Adults should get 7-9 hours of sleep per night RLS: Obtain fasting iron studies first thing in the morning. Plan to adjust meds with psychiatry to d/c Risperdal and restart Amitriptyline. Amitriptyline helps with insomnia and RLS. (continue Suboxone as prescribed for substance abuse hx which is likely helping RLS). INSOMNIA/Nightmares: Recommend CBTi Establish care with Dr. Schumacher as Dr. Cabral is no longer in the sleep center. Follow up with one of us in the sleep center in the next 3 months. Spring Arambula APRN.STEEL WHEEL ENGRAVER I spent a total of 30 minutes on the date of the service which included preparing to see the patient, [id number] patient care, completing clinical documentation, counseling and educating the patient/family/caregiver, ordering medications, tests, or procedures and communicating results to the patient/family/caregiver. documented in this encounter [facility] 04-05-2022 Miscellaneous Notes Images from the original note were not included. documented in this encounter [facility] 03-14-2022 Miscellaneous Notes Provider: Dr. Sunny Sarkar and Nela Noel CNP patient requesting refill. Please E-Scribe Last OV: 10/10/2021 with Margret Noel CNP (virtual visit) Future OV: N/A Last prescribed: 01/13/2022 Pending Prescriptions Disp Refills BACLOFEN 10 MG TABLET 60 tablet 1 Sig: Take 1 tablet by mouth twice daily. FRANCISCO: No Request sent to provider to review Minna Fletcher RN Patient called. Patient would like the prescription baclofen to be refilled for her? Please advise. Thank you! Tg Luna documented in this encounter [facility] 03-10-2022 Miscellaneous Notes Sent demographics, script and office note To: [facility] Fax:[phone] Phone: documented in this encounter [facility] 03-08-2022 History of Present illness Narrative Images from the original note were not included. [facility] Follow up/ Established patient visit Date of last visit : 09/12/2021 Impression: G47.19 Excessive daytime sleepiness (primary encounter diagnosis) R06.83 Snoring R53.83 Fatigue, unspecified type 31 yo female who presents for follow up as she has concerns for undiagnosed EARLENE. Now with sleep issues including snoring, gasping for air, reports from bed partner, active sleeper, and daytime fatigue. There has been a gradual weight gain over past few years as she remains sober. Her RLS are now controlled with sobriety and do not cause interruptions to sleep. 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 She has been following with her mental health provider for a long standing period and it has been encouraged to undergo sleep study testing. She is taking medications for sleep and is not finding them all that affective. Discussed with patient: the physiology of OSAS, medical conditions associated with OSAS (DM, HTN, CAD, Depression, Stroke, Headache...) and treatment options (UPPP, Dental appliances, CPAP...). Advised patient to avoid activities that could harm self or others when tired/sleepy, including driving and/or operating heavy machinery. Plan: - Polysomnogram (PSG) - split night for insurance purposes to evaluate for obstructive sleep apnea. - Discussed with the patient the possible diagnosis, causes, and conditions associated with obstructive sleep apnea. - Avoid driving when drowsy. Recommend that if you are dozing off while driving, that you do not drive until your sleepiness is appropriately treated. -Encouraged healthy lifestyle with adequate sleep ( 7-9 hours per night), diet and exercise. - Results are usually available within 7-10 business days. If you do not hear from us within 1-2 weeks after testing, please contact us directly. Follow up after sleep study results Irwin De Los Santos, KUMAR.STEEL WHEEL ENGRAVER Interval history : Here for follow up for EARLENE management. She had a PSG completed that showed mild overall sleep apnea, exacerbated to moderate in REM sleep. This was followed by a PAP titration study that showed none of the tested PAP settings completely normalized her AHI due to both treatment emergent central apneas, and the persistence of supine respiratory events. She was initiated on CPAP at 5 cm H20. She is doing well overall, however reports she feels she is not getting enough air after approximately 2 hours of use and has difficulty tolerating at that time. SLEEP APNEA Sleep apnea type : EARLENE, Most Recent Apnea-Hypopnea Index (AHI): 5.1 Treatment : PAP therapy DME: [facility] PAP History: Uses CPAP for 3-4 hours per night, nights per week. Current PAP settin cm H2O. Difficulties with CPAP: Yes: pressure intolerance Reviewed objective PAP compliance data: Mask type: full face mask Mask issues: aerophagia after approx 2 hours, feels she does not have enough pressure. Uses chin strap: No Uses ramp function: No Uses humidity: yes There is a perceived benefit by the patient: more rested Observers report abolition of snoring with AutoPAP use. ------- PATIENT-ENTERED QUESTIONNAIRE SLEEP SCORES Sleep Questions 03/08/2022 Reason for visit: Sleep apnea Average hours slept in 24 hours: 4 Percent of nights CPAP used at least 4 hours: 85 Accidents or near accidents due to drowsy drivin [facility] Sleepiness Scale 03/08/2022 Score 9 (No daytime sleepiness) PROMIS CAT Sleep Disturbance 03/08/2022 PROMIS Sleep Disturbance T-Score 64 (moderate) Insomnia Severity Index 03/08/2022 Score 19 PHQ-9 11/15/2016 01/03/2017 06/22/2017 Score 11 16 9 PROMIS Global Health - (T-Scores - the mean of general population = 50. Five points is a clinically meaningful difference.) 11/15/2016 01/03/2017 01/03/2017 Physical T-Score 39.8 32.4 32.4 Mental T-Score 36.3 36.3 36.3 PMH, PSH, SH: reviewed SLEEP RELATED ROS Review of Systems Constitutional: Positive for fatigue. HENT: + dry mouth Respiratory: Negative for cough and difficulty breathing. Cardiovascular: Negative for chest pain and palpitations. Neurological: Positive for headaches. ALLERGIES Allergen Reactions Clindamycin Anaphylaxis Phenergan [Prometha* Mental Status Change Celexa [Citalopram * Unknown Effexor [Venlafaxin* Unknown Paxil [Paroxetine H* Other: See Comments Depression made worse Remeron [Mirtazapin* Other: See Comments [place] strange on it. Seasonal [Other] Unknown Xanax [Alprazolam] Unknown CURRENT MEDICATIONS: pantoprazole DR (PROTONIX) 40 mg tablet Take 1 tablet by mouth daily before breakfast. Take on empty stomach, 1/2 hr before meal. CPAP AutoPAP set at fixed Settings of 5 cm H2O, suitable mask per pt preference, chin strap, head gear, humidity, tubing, lifetime supplies. G47.33 EARLENE etodolac (LODINE) 400 mg tablet Take 1 tablet by mouth twice daily. lamoTRIgine (LAMICTAL) 100 mg tablet Take 100 mg by mouth once daily. oxybutynin ER (DITROPAN XL) 10 mg 24 hr tablet Take 10 mg by mouth once daily. risperiDONE (RISPERDAL) 0.5 mg tablet Take 1 tablet by mouth twice daily. Per psych hydrOXYzine HCl (ATARAX) 50 mg tablet Take 1 tablet by mouth three times daily. albuterol HFA (VENTOLIN HFA) 90 mcg/actuation inhaler Inhale 2 Puffs as instructed every 4 hours as needed for Wheezing/Shortness of Breath. buprenorphine SL (SUBUTEX) 8 mg subl 12 mg. PHYSICAL EXAMINATION: Neurological exam: Patient approapriately answering questions. Language function normal. Memory normal. Speech fluent. IMPRESSION: Earlene (obstructive sleep apnea) (primary encounter diagnosis) Clinical Global Impression of Change ( CGI-C) Compared to the patient's condition at baseline, how much has the patient changed? Minimally improved This is a pleasant 32 yo female who presents via virtual visit for follow up management of her mixed sleep apnea. She had emergent central events on PAP titration study, which may indicate complex sleep apnea or lack of PAP acclimation. She was recently started on PAP therapy with a set pressure of 5 cmH20. She reports she starts comfortable, and then after approx 2 hours she feels she is not getting enough air. She is compliant nightly, and denies mask intolerance. Her recent download shows excellent control of her EARLENE with a residual AHI of 3.2. PLAN: - Continue Auto CPAP, adjust from 5 cm H20 to 5-15 cm H20- Remember to clean your mask and equipment regularly, as directed. - You should be eligible for new supplies approximately every 3-6 months, depending on your insurance coverage. Contact your Durable Medical Equipment (DME) company for new supplies as needed. - Follow up in 1 months to ensure pressure settings are more comfortable and continue to control your EARLENE. Spring Arambula APRN.EDITH I spent a total of 20 minutes on the date of the service which included preparing to see the patient, [id number] patient care, completing clinical documentation, ordering medications, tests, or procedures and communicating results to the patient/family/caregiver. documented in this encounter [facility] 10-27-2021 Miscellaneous Notes Baclofen was sent to patient's pharmacy on 10/26/2021 Patient is calling in to leave a message for Dr.Sarkar, She was put on a muscle relaxer but had a better reaction to baclofin and is asking if she can go back on this? Please advise patient will need a refill documented in this encounter [facility] 07-12-2021 History of Present illness Narrative Radiology Service Progress Note PATIENT NAME: Marisa Olmos DATE OF SERVICE: July 12, 2021 TIME: 8:25 AM PATIENT IDENTITY VERIFICATION COMPLETED USING TWO (2) IDENTIFIERS: Name and Date of confirmed by patient verbally. FALL SCREENING: Has the patient had 2 falls in the last year or 1 fall with injury or currently using an Ambulatory Assistive Device (Walker, Cane, Wheelchair, Crutches, etc.)? No PATIENT GENDER DATA: Female. status: : No status: NO. PATIENT RELEVANT IMPLANT DATA REVIEWED: Not Applicable RADIOLOGY DEPARTMENT: General X-ray: Exam(s) Completed: Spine X-Ray(s): Thoracic PERIPHERAL IV DATA: Not applicable SIGNED BY: Shantell Petit RT(R) July 12, 2021 8:25 AM documented in this encounter [facility] 03-11-2021 History of Present illness Narrative Radiology Service Progress Note PATIENT NAME: Marisa Olmos DATE OF SERVICE: March 11, 2021 TIME: 3:18 PM PATIENT IDENTITY VERIFICATION COMPLETED USING TWO (2) IDENTIFIERS: Name and Date of confirmed by patient verbally. FALL SCREENING: Has the patient had 2 falls in the last year or 1 fall with injury or currently using an Ambulatory Assistive Device (Walker, Cane, Wheelchair, Crutches, etc.)? No PATIENT GENDER DATA: Female. status: : No status: NO. PATIENT RELEVANT IMPLANT DATA REVIEWED: Yes RADIOLOGY DEPARTMENT: General X-ray: Exam(s) Completed: Lower Extremity X-Ray(s): Knee, AP / Lat / Tunne / Merchant Right and Wt. Bearing PERIPHERAL IV DATA: Not applicable SIGNED BY: Paris Gonzalez RT(R) March 11, 2021 3:18 PM documented in this encounter [facility] 09-20-2016 History of Past i llness Narrative Problem Noted Date Resolved Date Iron deficiency concern related to RLS 6 01/30/2018 Supervision of high-risk 04/02/2015 08/31/2015 Overview: On subutex Group B streptococcal infection during 02/08/2015 09/03/2015 Overview: rx for amoxil on 02/08/15- [facility] Nausea/vomiting in 01/27/201503/2015 Threatened 12/23/2014 09/03/2015 Subchorionic hematoma 12/23/2014 09/03/2015 Overview: Large 4.5 cm seen at 5-6 weeks Maternal drug use complicating , antepa rtum 06/01/2014 09/03/2015 Leukocytosis 05/29/2014 08/19/2014 Overview: 06/15/14 - attribute to pneumonia, repeat cbc once infection resolved - KJ Malaise 05/29/2014 08/19/2014 Pneumonia 05/29/2014 08/19/2014 History of labor 02/20/2014 014 Overview: 02/20/2014Patient states she has a history of labor with her second child. TKRN February 23, 2014 delivered at term with care elsewhere 4 08/19/2014 Overview: Patient states that she did have an ultrasound done by [facility] [facility] [facility] but no blood work for this . Patient signed a release of records form to obtain her records from [facility]. TKRN Nausea/vomiting in 02/20/2014 Overview: 02/20/2014 Patient is complaining of nausea and vomiting in . She has been prescribed Zofran and Reglan. She states that it helps a little bit with the nausea and vomiting. Advised patient to call/come in if she is unable to keep any food or fluids down in a 24-hour period.TKRN Bacterial vaginal infection 02/03/201407/30 Overview: February 03, 2014 Treated Minna Santoro MD with uncertain dates 10/23/2013 1 Overview: 10/23/2013 Patient states she is unsure of the first day of her last menstrual period. Discussed with Dr. Cazares and she ordered an ultrasound. TKRN Heart murmur 10/23/2013 02/23/2014 Overview: 10/23/[address] Belcher when she was 20 days old and was given a referral for cardiac work-up. Mother stated previously that she never had this done because their family doctor said the murmur resolved and was due to pt's prematurity and group B Strep infection. TKRN February 23, 2014 no further eval for this at this time. Minna Santoro MD Asthma 02/23/2014 Overview: DIAGNOSED AT AGE 18 documented as of this encounter (statuses as of 03/09/2022) [facility] History of Past illness Narrative* Problem Noted Date Resolved Date Iron deficiency concern related to RLS 6 01/30/2018 Supervision of high-risk 04/02/2015 08/31/2015 Overview: On subutex Group B streptococcal infection during 02/08/2015 09/03/2015 Overview: rx for amoxil on 02/08/15- [facility] Nausea/vomiting in 01/27/201503/2015 Threatened 12/23/2014 09/03/2015 Subchorionic hematoma 12/23/2014 09/03/2015 Overview: Large 4.5 cm seen at 5-6 weeks Maternal drug use complicating , antepa rtum 06/01/2014 09/03/2015 Leukocytosis 05/29/2014 08/19/2014 Overview: 06/15/14 - attribute to pneumonia, repeat cbc once infection resolved - KJ Malaise 05/29/2014 08/19/2014 Pneumonia 05/29/2014 08/19/2014 History of labor 02/20/2014 014 Overview: 02/20/2014Patient states she has a history of labor with her second child. TKRN February 23, 2014 delivered at term with care elsewhere 4 08/19/2014 Overview: Patient states that she did have an ultrasound done by [facility] [employer] [facility] but no blood work for this . Patient signed a release of records form to obtain her records from [facility] [facility] [facility]. TKRN Nausea/vomiting in 02/20/2014 Overview: 02/20/2014 Patient is complaining of nausea and vomiting in . She has been prescribed Zofran and Reglan. She states that it helps a little bit with the nausea and vomiting. Advised patient to call/come in if she is unable to keep any food or fluids down in a 24-hour period.TKRN Bacterial vaginal infection 02/03/201407/30 Overview: February 03, 2014 Treated Minna Santoro MD with uncertain dates 10/23/2013 1 Overview: 10/23/2013 Patient states she is unsure of the first day of her last menstrual period. Discussed with Dr. Cazares and she ordered an ultrasound. TKRN Heart murmur 10/23/2013 02/23/2014 Overview: 10/23/[address] Belcher when she was 20 days old and was given a referral for cardiac work-up. Mother stated previously that she never had this done because their family doctor said the murmur resolved and was due to pt's prematurity and group B Strep infection. TKRN February 23, 2014 no further eval for this at this time. Minna Santoro MD Asthma 02/23/2014 Overview: DIAGNOSED AT AGE 18 documented as of this encounter (statuses as of 03/10/2022) [facility] History of Past illness Narrative* Problem Noted Date Resolved Date Iron deficiency concern related to RLS 6 01/30/2018 Supervision of high-risk 04/02/2015 08/31/2015 Overview: On subutex Group B streptococcal infection during 02/08/2015 09/03/2015 Overview: rx for amoxil on 02/08/15- JV Nausea/vomiting in 01/27/201503/2015 Threatened 12/23/2014 09/03/2015 Subchorionic hematoma 12/23/2014 09/03/2015 Overview: Large 4.5 cm seen at 5-6 weeks Maternal drug use complicating , antepa rtum 06/01/2014 09/03/2015 Leukocytosis 05/29/2014 08/19/2014 Overview: 06/15/14 - attribute to pneumonia, repeat cbc once infection resolved - KJ Malaise 05/29/2014 08/19/2014 Pneumonia 05/29/2014 08/19/2014 History of labor 02/20/2014 014 Overview: 02/20/2014Patient states she has a history of labor with her second child. TKRN February 23, 2014 delivered at term with care elsewhere 4 08/19/2014 Overview: Patient states that she did have an ultrasound done by [facility] [employer] but no blood work for this . Patient signed a release of records form to obtain her records from [facility] [facility]. TKRN Nausea/vomiting in 02/20/2014 Overview: 02/20/2014 Patient is complaining of nausea and vomiting in . She has been prescribed Zofran and Reglan. She states that it helps a little bit with the nausea and vomiting. Advised patient to call/come in if she is unable to keep any food or fluids down in a 24-hour period.TKRN Bacterial vaginal infection 02/03/201407/30 Overview: February 03, 2014 Treated Minna Santoro MD with uncertain dates 10/23/2013 1 Overview: 10/23/2013 Patient states she is unsure of the first day of her last menstrual period. Discussed with Dr. Cazares and she ordered an ultrasound. TKRN Heart murmur 10/23/2013 02/23/2014 Overview: 10/23/[address] Belcher when she was 20 days old and was given a referral for cardiac work-up. Mother stated previously that she never had this done because their family doctor said the murmur resolved and was due to pt's prematurity and group B Strep infection. TKRN February 23, 2014 no further eval for this at this time. Minna Santoro MD Asthma 02/23/2014 Overview: DIAGNOSED AT AGE 18 documented as of this encounter (statuses as of 03/15/2022) [facility] History of Past illness Narrative* Problem Noted Date Resolved Date Iron deficiency concern related to RLS 6 01/30/2018 Supervision of high-risk 04/02/2015 08/31/2015 Overview: On subutex Group B streptococcal infection during 02/08/2015 09/03/2015 Overview: rx for amoxil on 02/08/15- JV Nausea/vomiting in 01/27/201503/2015 Threatened 12/23/2014 09/03/2015 Subchorionic hematoma 12/23/2014 09/03/2015 Overview: Large 4.5 cm seen at 5-6 weeks Maternal drug use complicating , antepa rtum 06/01/2014 09/03/2015 Leukocytosis 05/29/2014 08/19/2014 Overview: 06/15/14 - attribute to pneumonia, repeat cbc once infection resolved - KJ Malaise 05/29/2014 08/19/2014 Pneumonia 05/29/2014 08/19/2014 History of labor 02/20/2014 014 Overview: 02/20/2014Patient states she has a history of labor with her second child. TKRN February 23, 2014 delivered at term with care elsewhere 4 08/19/2014 Overview: Patient states that she did have an ultrasound done by [facility] [employer] but no blood work for this . Patient signed a release of records form to obtain her records from [facility]. TKRN Nausea/vomiting in 02/20/2014 Overview: 02/20/2014 Patient is complaining of nausea and vomiting in . She has been prescribed Zofran and Reglan. She states that it helps a little bit with the nausea and vomiting. Advised patient to call/come in if she is unable to keep any food or fluids down in a 24-hour period.TKRN Bacterial vaginal infection 02/03/201407/30 Overview: February 03, 2014 Treated Minna Santoro MD with uncertain dates 10/23/2013 1 Overview: 10/23/2013 Patient states she is unsure of the first day of her last menstrual period. Discussed with Dr. Cazares and she ordered an ultrasound. TKRN Heart murmur 10/23/2013 02/23/2014 Overview: 10/23/[address] Belcher when she was 20 days old and was given a referral for cardiac work-up. Mother stated previously that she never had this done because their family doctor said the murmur resolved and was due to pt's prematurity and group B Strep infection. TKRN February 23, 2014 no further eval for this at this time. Minna Santoro MD Asthma 02/23/2014 Overview: DIAGNOSED AT AGE 18 documented as of this encounter (statuses as of 04/05/2022) [facility] History of Past illness Narrative* Problem Noted Date Resolved Date Iron deficiency concern related to RLS 6 01/30/2018 Supervision of high-risk 04/02/2015 08/31/2015 Overview: On subutex Group B streptococcal infection during 02/08/2015 09/03/2015 Overview: rx for amoxil on 02/08/15- JV Nausea/vomiting in 01/27/201503/2015 Threatened 12/23/2014 09/03/2015 Subchorionic hematoma 12/23/2014 09/03/2015 Overview: Large 4.5 cm seen at 5-6 weeks Maternal drug use complicating , antepa rtum 06/01/2014 09/03/2015 Leukocytosis 05/29/2014 08/19/2014 Overview: 06/15/14 - attribute to pneumonia, repeat cbc once infection resolved - KJ Malaise 05/29/2014 08/19/2014 Pneumonia 05/29/2014 08/19/2014 History of labor 02/20/2014 014 Overview: 02/20/2014Patient states she has a history of labor with her second child. TKRN February 23, 2014 delivered at term with care elsewhere 4 08/19/2014 Overview: Patient states that she did have an ultrasound done by [facility] [employer] but no blood work for this . Patient signed a release of records form to obtain her records from [facility]. TKRN Nausea/vomiting in 02/20/2014 Overview: 02/20/2014 Patient is complaining of nausea and vomiting in . She has been prescribed Zofran and Reglan. She states that it helps a little bit with the nausea and vomiting. Advised patient to call/come in if she is unable to keep any food or fluids down in a 24-hour period.TKRN Bacterial vaginal infection 02/03/201407/30 Overview: February 03, 2014 Treated Minna Santoro MD with uncertain dates 10/23/2013 1 Overview: 10/23/2013 Patient states she is unsure of the first day of her last menstrual period. Discussed with Dr. Cazares and she ordered an ultrasound. TKRN Heart murmur 10/23/2013 02/23/2014 Overview: 10/23/[address] Belcher when she was 20 days old and was given a referral for cardiac work-up. Mother stated previously that she never had this done because their family doctor said the murmur resolved and was due to pt's prematurity and group B Strep infection. TKRN February 23, 2014 no further eval for this at this time. Minna Santoro MD Asthma 02/23/2014 Overview: DIAGNOSED AT AGE 18 documented as of this encounter (statuses as of 04/12/2022) [facility] History of Past illness Narrative* Problem Noted Date Resolved Date Iron deficiency concern related to RLS 6 01/30/2018 Supervision of high-risk 04/02/2015 08/31/2015 Overview: On subutex Group B streptococcal infection during 02/08/2015 09/03/2015 Overview: rx for amoxil on 02/08/15- JV Nausea/vomiting in 01/27/201503/2015 Threatened 12/23/2014 09/03/2015 Subchorionic hematoma 12/23/2014 09/03/2015 Overview: Large 4.5 cm seen at 5-6 weeks Maternal drug use complicating , antepa rtum 06/01/2014 09/03/2015 Leukocytosis 05/29/2014 08/19/2014 Overview: 06/15/14 - attribute to pneumonia, repeat cbc once infection resolved - KJ Malaise 05/29/2014 08/19/2014 Pneumonia 05/29/2014 08/19/2014 History of labor 02/20/2014 014 Overview: 02/20/2014Patient states she has a history of labor with her second child. TKRN February 23, 2014 delivered at term with care elsewhere 4 08/19/2014 Overview: Patient states that she did have an ultrasound done by [facility] [employer] but no blood work for this . Patient signed a release of records form to obtain her records from [facility] [employer]. TKRN Nausea/vomiting in 02/20/2014 Overview: 02/20/2014 Patient is complaining of nausea and vomiting in . She has been prescribed Zofran and Reglan. She states that it helps a little bit with the nausea and vomiting. Advised patient to call/come in if she is unable to keep any food or fluids down in a 24-hour period.TKRN Bacterial vaginal infection 02/03/201407/30 Overview: February 03, 2014 Treated Minna Santoro MD with uncertain dates 10/23/2013 1 Overview: 10/23/2013 Patient states she is unsure of the first day of her last menstrual period. Discussed with Dr. Cazares and she ordered an ultrasound. TKRN Heart murmur 10/23/2013 02/23/2014 Overview: 10/23/[address] Belcher when she was 20 days old and was given a referral for cardiac work-up. Mother stated previously that she never had this done because their family doctor said the murmur resolved and was due to pt's prematurity and group B Strep infection. TKRN February 23, 2014 no further eval for this at this time. Minna Santoro MD Asthma 02/23/2014 Overview: DIAGNOSED AT AGE 18 documented as of this encounter (statuses as of 04/27/2022) [facility] History of Past illness Narrative* Problem Noted Date Resolved Date Iron deficiency concern related to RLS 6 01/30/2018 Supervision of high-risk 04/02/2015 08/31/2015 Overview: On subutex Group B streptococcal infection during 02/08/2015 09/03/2015 Overview: rx for amoxil on 02/08/15- JV Nausea/vomiting in 01/27/201503/2015 Threatened 12/23/2014 09/03/2015 Subchorionic hematoma 12/23/2014 09/03/2015 Overview: Large 4.5 cm seen at 5-6 weeks Maternal drug use complicating , antepa rtum 06/01/2014 09/03/2015 Leukocytosis 05/29/2014 08/19/2014 Overview: 06/15/14 - attribute to pneumonia, repeat cbc once infection resolved - KJ Malaise 05/29/2014 08/19/2014 Pneumonia 05/29/2014 08/19/2014 History of labor 02/20/2014 014 Overview: 02/20/2014Patient states she has a history of labor with her second child. TKRN February 23, 2014 delivered at term with care elsewhere 4 08/19/2014 Overview: Patient states that she did have an ultrasound done by [facility] [employer] but no blood work for this . Patient signed a release of records form to obtain her records from [facility]. TKRN Nausea/vomiting in 02/20/2014 Overview: 02/20/2014 Patient is complaining of nausea and vomiting in . She has been prescribed Zofran and Reglan. She states that it helps a little bit with the nausea and vomiting. Advised patient to call/come in if she is unable to keep any food or fluids down in a 24-hour period.TKRN Bacterial vaginal infection 02/03/201407/30 Overview: February 03, 2014 Treated Minna Santoro MD with uncertain dates 10/23/2013 1 Overview: 10/23/2013 Patient states she is unsure of the first day of her last menstrual period. Discussed with Dr. Cazares and she ordered an ultrasound. TKRN Heart murmur 10/23/2013 02/23/2014 Overview: 10/23/[address] Belcher when she was 20 days old and was given a referral for cardiac work-up. Mother stated previously that she never had this done because their family doctor said the murmur resolved and was due to pt's prematurity and group B Strep infection. TKRN February 23, 2014 no further eval for this at this time. Minna Santoro MD Asthma 02/23/2014 Overview: DIAGNOSED AT AGE 18 documented as of this encounter (statuses as of 04/27/2022) [facility] History of Past illness Narrative* Problem Noted Date Resolved Date Iron deficiency concern related to RLS 6 01/30/2018 Supervision of high-risk 04/02/2015 08/31/2015 Overview: On subutex Group B streptococcal infection during 02/08/2015 09/03/2015 Overview: rx for amoxil on 02/08/15- JV Nausea/vomiting in 01/27/201503/2015 Threatened 12/23/2014 09/03/2015 Subchorionic hematoma 12/23/2014 09/03/2015 Overview: Large 4.5 cm seen at 5-6 weeks Maternal drug use complicating , antepa rtum 06/01/2014 09/03/2015 Leukocytosis 05/29/2014 08/19/2014 Overview: 06/15/14 - attribute to pneumonia, repeat cbc once infection resolved - KJ Malaise 05/29/2014 08/19/2014 Pneumonia 05/29/2014 08/19/2014 History of labor 02/20/2014 014 Overview: 02/20/2014Patient states she has a history of labor with her second child. TKRN February 23, 2014 delivered at term with care elsewhere 4 08/19/2014 Overview: Patient states that she did have an ultrasound done by [facility] [employer] but no blood work for this . Patient signed a release of records form to obtain her records from [facility] [employer]. TKRN Nausea/vomiting in 02/20/2014 Overview: 02/20/2014 Patient is complaining of nausea and vomiting in . She has been prescribed Zofran and Reglan. She states that it helps a little bit with the nausea and vomiting. Advised patient to call/come in if she is unable to keep any food or fluids down in a 24-hour period.TKRN Bacterial vaginal infection 02/03/201407/30 Overview: February 03, 2014 Treated Minna Santoro MD with uncertain dates 10/23/2013 1 Overview: 10/23/2013 Patient states she is unsure of the first day of her last menstrual period. Discussed with Dr. Cazares and she ordered an ultrasound. TKRN Heart murmur 10/23/2013 02/23/2014 Overview: 10/23/[address] Belcher when she was 20 days old and was given a referral for cardiac work-up. Mother stated previously that she never had this done because their family doctor said the murmur resolved and was due to pt's prematurity and group B Strep infection. TKRN February 23, 2014 no further eval for this at this time. Minna Santoro MD Asthma 02/23/2014 Overview: DIAGNOSED AT AGE 18 documented as of this encounter (statuses as of 05/04/2022) [facility] History of Past illness Narrative* Problem Noted Date Resolved Date Iron deficiency concern related to RLS 6 01/30/2018 Supervision of high-risk 04/02/2015 08/31/2015 Overview: On subutex Group B streptococcal infection during 02/08/2015 09/03/2015 Overview: rx for amoxil on 02/08/15- JV Nausea/vomiting in 01/27/201503/2015 Threatened 12/23/2014 09/03/2015 Subchorionic hematoma 12/23/2014 09/03/2015 Overview: Large 4.5 cm seen at 5-6 weeks Maternal drug use complicating , antepa rtum 06/01/2014 09/03/2015 Leukocytosis 05/29/2014 08/19/2014 Overview: 06/15/14 - attribute to pneumonia, repeat cbc once infection resolved - KJ Malaise 05/29/2014 08/19/2014 Pneumonia 05/29/2014 08/19/2014 History of labor 02/20/2014 014 Overview: 02/20/2014Patient states she has a history of labor with her second child. TKRN February 23, 2014 delivered at term with care elsewhere 4 08/19/2014 Overview: Patient states that she did have an ultrasound done by [facility] [employer] but no blood work for this . Patient signed a release of records form to obtain her records from [facility] [employer]. TKRN Nausea/vomiting in 02/20/2014 Overview: 02/20/2014 Patient is complaining of nausea and vomiting in . She has been prescribed Zofran and Reglan. She states that it helps a little bit with the nausea and vomiting. Advised patient to call/come in if she is unable to keep any food or fluids down in a 24-hour period.TKRN Bacterial vaginal infection 02/03/201407/30 Overview: February 03, 2014 Treated Minna Santoro MD with uncertain dates 10/23/2013 1 Overview: 10/23/2013 Patient states she is unsure of the first day of her last menstrual period. Discussed with Dr. Cazares and she ordered an ultrasound. TKRN Heart murmur 10/23/2013 02/23/2014 Overview: 10/23/[address] Belcher when she was 20 days old and was given a referral for cardiac work-up. Mother stated previously that she never had this done because their family doctor said the murmur resolved and was due to pt's prematurity and group B Strep infection. TKRN February 23, 2014 no further eval for this at this time. Minna Santoro MD Asthma 02/23/2014 Overview: DIAGNOSED AT AGE 18 documented as of this encounter (statuses as of 05/17/2022) [facility] History of Past illness Narrative* Problem Noted Date Resolved Date Iron deficiency concern related to RLS 6 01/30/2018 Supervision of high-risk 04/02/2015 08/31/2015 Overview: On subutex Group B streptococcal infection during 02/08/2015 09/03/2015 Overview: rx for amoxil on 02/08/15- JV Nausea/vomiting in 01/27/201503/2015 Threatened 12/23/2014 09/03/2015 Subchorionic hematoma 12/23/2014 09/03/2015 Overview: Large 4.5 cm seen at 5-6 weeks Maternal drug use complicating , antepa rtum 06/01/2014 09/03/2015 Leukocytosis 05/29/2014 08/19/2014 Overview: 06/15/14 - attribute to pneumonia, repeat cbc once infection resolved - KJ Malaise 05/29/2014 08/19/2014 Pneumonia 05/29/2014 08/19/2014 History of labor 02/20/2014 014 Overview: 02/20/2014Patient states she has a history of labor with her second child. TKRN February 23, 2014 delivered at term with care elsewhere 4 08/19/2014 Overview: Patient states that she did have an ultrasound done by [facility] [employer] but no blood work for this . Patient signed a release of records form to obtain her records from [facility] [employer]. TKRN Nausea/vomiting in 02/20/2014 Overview: 02/20/2014 Patient is complaining of nausea and vomiting in . She has been prescribed Zofran and Reglan. She states that it helps a little bit with the nausea and vomiting. Advised patient to call/come in if she is unable to keep any food or fluids down in a 24-hour period.TKRN Bacterial vaginal infection 02/03/201407/30 Overview: February 03, 2014 Treated Minna Santoro MD with uncertain dates 10/23/2013 1 Overview: 10/23/2013 Patient states she is unsure of the first day of her last menstrual period. Discussed with Dr. Cazares and she ordered an ultrasound. TKRN Heart murmur 10/23/2013 02/23/2014 Overview: 10/23/[address] Belcher when she was 20 days old and was given a referral for cardiac work-up. Mother stated previously that she never had this done because their family doctor said the murmur resolved and was due to pt's prematurity and group B Strep infection. TKRN February 23, 2014 no further eval for this at this time. Minna Santoro MD Asthma 02/23/2014 Overview: DIAGNOSED AT AGE 18 documented as of this encounter (statuses as of 05/18/2022) [facility] History of Past illness Narrative* Problem Noted Date Resolved Date Iron deficiency concern related to RLS 6 01/30/2018 Supervision of high-risk 04/02/2015 08/31/2015 Overview: On subutex Group B streptococcal infection during 02/08/2015 09/03/2015 Overview: rx for amoxil on 02/08/15- JV Nausea/vomiting in 01/27/201503/2015 Threatened 12/23/2014 09/03/2015 Subchorionic hematoma 12/23/2014 09/03/2015 Overview: Large 4.5 cm seen at 5-6 weeks Maternal drug use complicating , antepa rtum 06/01/2014 09/03/2015 Leukocytosis 05/29/2014 08/19/2014 Overview: 06/15/14 - attribute to pneumonia, repeat cbc once infection resolved - KJ Malaise 05/29/2014 08/19/2014 Pneumonia 05/29/2014 08/19/2014 History of labor 02/20/2014 014 Overview: 02/20/2014Patient states she has a history of labor with her second child. TKRN February 23, 2014 delivered at term with care elsewhere 4 08/19/2014 Overview: Patient states that she did have an ultrasound done by [facility] [employer] but no blood work for this . Patient signed a release of records form to obtain her records from [facility] [employer]. TKRN Nausea/vomiting in 02/20/2014 Overview: 02/20/2014 Patient is complaining of nausea and vomiting in . She has been prescribed Zofran and Reglan. She states that it helps a little bit with the nausea and vomiting. Advised patient to call/come in if she is unable to keep any food or fluids down in a 24-hour period.TKRN Bacterial vaginal infection 02/03/201407/30 Overview: February 03, 2014 Treated Minna Santoro MD with uncertain dates 10/23/2013 1 Overview: 10/23/2013 Patient states she is unsure of the first day of her last menstrual period. Discussed with Dr. Cazares and she ordered an ultrasound. TKRN Heart murmur 10/23/2013 02/23/2014 Overview: 10/23/[address] Belcher when she was 20 days old and was given a referral for cardiac work-up. Mother stated previously that she never had this done because their family doctor said the murmur resolved and was due to pt's prematurity and group B Strep infection. TKRN February 23, 2014 no further eval for this at this time. Minna Santoro MD Asthma 02/23/2014 Overview: DIAGNOSED AT AGE 18 documented as of this encounter (statuses as of 05/22/2022) [facility] History of Past illness Narrative* Problem Noted Date Resolved Date Iron deficiency concern related to RLS 6 01/30/2018 Supervision of high-risk 04/02/2015 08/31/2015 Overview: On subutex Group B streptococcal infection during 02/08/2015 09/03/2015 Overview: rx for amoxil on 02/08/15- JV Nausea/vomiting in 01/27/201503/2015 Threatened 12/23/2014 09/03/2015 Subchorionic hematoma 12/23/2014 09/03/2015 Overview: Large 4.5 cm seen at 5-6 weeks Maternal drug use complicating , antepa rtum 06/01/2014 09/03/2015 Leukocytosis 05/29/2014 08/19/2014 Overview: 06/15/14 - attribute to pneumonia, repeat cbc once infection resolved - KJ Malaise 05/29/2014 08/19/2014 Pneumonia 05/29/2014 08/19/2014 History of labor 02/20/2014 014 Overview: 02/20/2014Patient states she has a history of labor with her second child. TKRN February 23, 2014 delivered at term with care elsewhere 4 08/19/2014 Overview: Patient states that she did have an ultrasound done by [facility] [employer] but no blood work for this . Patient signed a release of records form to obtain her records from [facility] [employer]. TKRN Nausea/vomiting in 02/20/2014 Overview: 02/20/2014 Patient is complaining of nausea and vomiting in . She has been prescribed Zofran and Reglan. She states that it helps a little bit with the nausea and vomiting. Advised patient to call/come in if she is unable to keep any food or fluids down in a 24-hour period.TKRN Bacterial vaginal infection 02/03/201407/30 Overview: February 03, 2014 Treated Minna Santoro MD with uncertain dates 10/23/2013 1 Overview: 10/23/2013 Patient states she is unsure of the first day of her last menstrual period. Discussed with Dr. Cazares and she ordered an ultrasound. TKRN Heart murmur 10/23/2013 02/23/2014 Overview: 10/23/[address] Belcher when she was 20 days old and was given a referral for cardiac work-up. Mother stated previously that she never had this done because their family doctor said the murmur resolved and was due to pt's prematurity and group B Strep infection. TKRN February 23, 2014 no further eval for this at this time. Minna Santoro MD Asthma 02/23/2014 Overview: DIAGNOSED AT AGE 18 documented as of this encounter (statuses as of 06/01/2022) [facility] History of Past illness Narrative* Problem Noted Date Resolved Date Iron deficiency concern related to RLS 6 01/30/2018 Supervision of high-risk 04/02/2015 08/31/2015 Overview: On subutex Group B streptococcal infection during 02/08/2015 09/03/2015 Overview: rx for amoxil on 02/08/15- JV Nausea/vomiting in 01/27/201503/2015 Threatened 12/23/2014 09/03/2015 Subchorionic hematoma 12/23/2014 09/03/2015 Overview: Large 4.5 cm seen at 5-6 weeks Maternal drug use complicating , antepa rtum 06/01/2014 09/03/2015 Leukocytosis 05/29/2014 08/19/2014 Overview: 06/15/14 - attribute to pneumonia, repeat cbc once infection resolved - KJ Malaise 05/29/2014 08/19/2014 Pneumonia 05/29/2014 08/19/2014 History of labor 02/20/2014 014 Overview: 02/20/2014Patient states she has a history of labor with her second child. TKRN February 23, 2014 delivered at term with care elsewhere 4 08/19/2014 Overview: Patient states that she did have an ultrasound done by [facility] [employer] but no blood work for this . Patient signed a release of records form to obtain her records from [facility]. TKRN Nausea/vomiting in 02/20/2014 Overview: 02/20/2014 Patient is complaining of nausea and vomiting in . She has been prescribed Zofran and Reglan. She states that it helps a little bit with the nausea and vomiting. Advised patient to call/come in if she is unable to keep any food or fluids down in a 24-hour period.TKRN Bacterial vaginal infection 02/03/201407/30 Overview: February 03, 2014 Treated Minna Santoro MD with uncertain dates 10/23/2013 1 Overview: 10/23/2013 Patient states she is unsure of the first day of her last menstrual period. Discussed with Dr. Cazares and she ordered an ultrasound. TKRN Heart murmur 10/23/2013 02/23/2014 Overview: 10/23/[address] Belcher when she was 20 days old and was given a referral for cardiac work-up. Mother stated previously that she never had this done because their family doctor said the murmur resolved and was due to pt's prematurity and group B Strep infection. TKRN February 23, 2014 no further eval for this at this time. Minna Santoro MD Asthma 02/23/2014 Overview: DIAGNOSED AT AGE 18 documented as of this encounter (statuses as of 07/11/2022) [facility] History of Past illness Narrative* Problem Noted Date Resolved Date Iron deficiency concern related to RLS 6 01/30/2018 Supervision of high-risk 04/02/2015 08/31/2015 Overview: On subutex Group B streptococcal infection during 02/08/2015 09/03/2015 Overview: rx for amoxil on 02/08/15- JV Nausea/vomiting in 01/27/201503/2015 Threatened 12/23/2014 09/03/2015 Subchorionic hematoma 12/23/2014 09/03/2015 Overview: Large 4.5 cm seen at 5-6 weeks Maternal drug use complicating , antepa rtum 06/01/2014 09/03/2015 Leukocytosis 05/29/2014 08/19/2014 Overview: 06/15/14 - attribute to pneumonia, repeat cbc once infection resolved - KJ Malaise 05/29/2014 08/19/2014 Pneumonia 05/29/2014 08/19/2014 History of labor 02/20/2014 014 Overview: 02/20/2014Patient states she has a history of labor with her second child. TKRN February 23, 2014 delivered at term with care elsewhere 4 08/19/2014 Overview: Patient states that she did have an ultrasound done by [facility] [employer] but no blood work for this . Patient signed a release of records form to obtain her records from [facility] [employer]. TKRN Nausea/vomiting in 02/20/2014 Overview: 02/20/2014 Patient is complaining of nausea and vomiting in . She has been prescribed Zofran and Reglan. She states that it helps a little bit with the nausea and vomiting. Advised patient to call/come in if she is unable to keep any food or fluids down in a 24-hour period.TKRN Bacterial vaginal infection 02/03/201407/30 Overview: February 03, 2014 Treated Minna Santoro MD with uncertain dates 10/23/2013 1 Overview: 10/23/2013 Patient states she is unsure of the first day of her last menstrual period. Discussed with Dr. Cazares and she ordered an ultrasound. TKRN Heart murmur 10/23/2013 02/23/2014 Overview: 10/23/[address] Belcher when she was 20 days old and was given a referral for cardiac work-up. Mother stated previously that she never had this done because their family doctor said the murmur resolved and was due to pt's prematurity and group B Strep infection. TKRN February 23, 2014 no further eval for this at this time. Minna Santoro MD Asthma 02/23/2014 Overview: DIAGNOSED AT AGE 18 documented as of this encounter (statuses as of 07/12/2022) [facility] History of Past illness Narrative* Problem Noted Date Resolved Date Iron deficiency concern related to RLS 6 01/30/2018 Supervision of high-risk 04/02/2015 08/31/2015 Overview: On subutex Group B streptococcal infection during 02/08/2015 09/03/2015 Overview: rx for amoxil on 02/08/15- JV Nausea/vomiting in 01/27/201503/2015 Threatened 12/23/2014 09/03/2015 Subchorionic hematoma 12/23/2014 09/03/2015 Overview: Large 4.5 cm seen at 5-6 weeks Maternal drug use complicating , antepa rtum 06/01/2014 09/03/2015 Leukocytosis 05/29/2014 08/19/2014 Overview: 06/15/14 - attribute to pneumonia, repeat cbc once infection resolved - KJ Malaise 05/29/2014 08/19/2014 Pneumonia 05/29/2014 08/19/2014 History of labor 02/20/2014 014 Overview: 02/20/2014Patient states she has a history of labor with her second child. TKRN February 23, 2014 delivered at term with care elsewhere 4 08/19/2014 Overview: Patient states that she did have an ultrasound done by [facility] [employer] but no blood work for this . Patient signed a release of records form to obtain her records from [facility] [employer]. TKRN Nausea/vomiting in 02/20/2014 Overview: 02/20/2014 Patient is complaining of nausea and vomiting in . She has been prescribed Zofran and Reglan. She states that it helps a little bit with the nausea and vomiting. Advised patient to call/come in if she is unable to keep any food or fluids down in a 24-hour period.TKRN Bacterial vaginal infection 02/03/201407/30 Overview: February 03, 2014 Treated Minna Santoro MD with uncertain dates 10/23/2013 1 Overview: 10/23/2013 Patient states she is unsure of the first day of her last menstrual period. Discussed with Dr. Cazares and she ordered an ultrasound. TKRN Heart murmur 10/23/2013 02/23/2014 Overview: 10/23/[address] Belcher when she was 20 days old and was given a referral for cardiac work-up. Mother stated previously that she never had this done because their family doctor said the murmur resolved and was due to pt's prematurity and group B Strep infection. TKRN February 23, 2014 no further eval for this at this time. Minna Santoro MD Asthma 02/23/2014 Overview: DIAGNOSED AT AGE 18 documented as of this encounter (statuses as of 07/14/2022) [facility] History of Past illness Narrative* Problem Noted Date Resolved Date Iron deficiency concern related to RLS 6 01/30/2018 Supervision of high-risk 04/02/2015 08/31/2015 Overview: On subutex Group B streptococcal infection during 02/08/2015 09/03/2015 Overview: rx for amoxil on 02/08/15- JV Nausea/vomiting in 01/27/201503/2015 Threatened 12/23/2014 09/03/2015 Subchorionic hematoma 12/23/2014 09/03/2015 Overview: Large 4.5 cm seen at 5-6 weeks Maternal drug use complicating , antepa rtum 06/01/2014 09/03/2015 Leukocytosis 05/29/2014 08/19/2014 Overview: 06/15/14 - attribute to pneumonia, repeat cbc once infection resolved - KJ Malaise 05/29/2014 08/19/2014 Pneumonia 05/29/2014 08/19/2014 History of labor 02/20/2014 014 Overview: 02/20/2014Patient states she has a history of labor with her second child. EFRARHeidi February 23, 2014 delivered at term with care elsewhere 4 08/19/2014 Overview: Patient states that she did have an ultrasound done by [facility] [employer] but no blood work for this . Patient signed a release of records form to obtain her records from [facility] [employer]. TKRN Nausea/vomiting in 02/20/2014 Overview: 02/20/2014 Patient is complaining of nausea and vomiting in . She has been prescribed Zofran and Reglan. She states that it helps a little bit with the nausea and vomiting. Advised patient to call/come in if she is unable to keep any food or fluids down in a 24-hour period.TKRN Bacterial vaginal infection 02/03/201407/30 Overview: February 03, 2014 Treated Minna Santoro MD with uncertain dates 10/23/2013 1 Overview: 10/23/2013 Patient states she is unsure of the first day of her last menstrual period. Discussed with Dr. Cazares and she ordered an ultrasound. TKRN Heart murmur 10/23/2013 02/23/2014 Overview: 10/23/[address] Belcher when she was 20 days old and was given a referral for cardiac work-up. Mother stated previously that she never had this done because their family doctor said the murmur resolved and was due to pt's prematurity and group B Strep infection. TKRN February 23, 2014 no further eval for this at this time. Minna Santoro MD Asthma 02/23/2014 Overview: DIAGNOSED AT AGE 18 documented as of this encounter (statuses as of 07/17/2022) [facility] History of Past illness Narrative* Problem Noted Date Resolved Date Iron deficiency concern related to RLS 6 01/30/2018 Supervision of high-risk 04/02/2015 08/31/2015 Overview: On subutex Group B streptococcal infection during 02/08/2015 09/03/2015 Overview: rx for amoxil on 02/08/15- JV Nausea/vomiting in 01/27/201503/2015 Threatened 12/23/2014 09/03/2015 Subchorionic hematoma 12/23/2014 09/03/2015 Overview: Large 4.5 cm seen at 5-6 weeks Maternal drug use complicating , antepa rtum 06/01/2014 09/03/2015 Leukocytosis 05/29/2014 08/19/2014 Overview: 06/15/14 - attribute to pneumonia, repeat cbc once infection resolved - KJ Malaise 05/29/2014 08/19/2014 Pneumonia 05/29/2014 08/19/2014 History of labor 02/20/2014 014 Overview: 02/20/2014Patient states she has a history of labor with her second child. TKRN February 23, 2014 delivered at term with care elsewhere 4 08/19/2014 Overview: Patient states that she did have an ultrasound done by [facility] [employer] but no blood work for this . Patient signed a release of records form to obtain her records from [facility] [employer]. TKRN Nausea/vomiting in 02/20/2014 Overview: 02/20/2014 Patient is complaining of nausea and vomiting in . She has been prescribed Zofran and Reglan. She states that it helps a little bit with the nausea and vomiting. Advised patient to call/come in if she is unable to keep any food or fluids down in a 24-hour period.TKRN Bacterial vaginal infection 02/03/201407/30 Overview: February 03, 2014 Treated Minna Santoro MD with uncertain dates 10/23/2013 1 Overview: 10/23/2013 Patient states she is unsure of the first day of her last menstrual period. Discussed with Dr. Cazares and she ordered an ultrasound. TKRN Heart murmur 10/23/2013 02/23/2014 Overview: 10/23/[address] Belcher when she was 20 days old and was given a referral for cardiac work-up. Mother stated previously that she never had this done because their family doctor said the murmur resolved and was due to pt's prematurity and group B Strep infection. TKRN February 23, 2014 no further eval for this at this time. Minna Santoro MD Asthma 02/23/2014 Overview: DIAGNOSED AT AGE 18 documented as of this encounter (statuses as of 07/20/2022) [facility] History of Past illness Narrative* Problem Noted Date Resolved Date Iron deficiency concern related to RLS 6 01/30/2018 Supervision of high-risk 04/02/2015 08/31/2015 Overview: On subutex Group B streptococcal infection during 02/08/2015 09/03/2015 Overview: rx for amoxil on 02/08/15- JV Nausea/vomiting in 01/27/201503/2015 Threatened 12/23/2014 09/03/2015 Subchorionic hematoma 12/23/2014 09/03/2015 Overview: Large 4.5 cm seen at 5-6 weeks Maternal drug use complicating , antepa rtum 06/01/2014 09/03/2015 Leukocytosis 05/29/2014 08/19/2014 Overview: 06/15/14 - attribute to pneumonia, repeat cbc once infection resolved - KJ Malaise 05/29/2014 08/19/2014 Pneumonia 05/29/2014 08/19/2014 History of labor 02/20/2014 014 Overview: 02/20/2014Patient states she has a history of labor with her second child. TKRN February 23, 2014 delivered at term with care elsewhere 4 08/19/2014 Overview: Patient states that she did have an ultrasound done by [facility] [employer] but no blood work for this . Patient signed a release of records form to obtain her records from [facility] [employer]. TKRN Nausea/vomiting in 02/20/2014 Overview: 02/20/2014 Patient is complaining of nausea and vomiting in . She has been prescribed Zofran and Reglan. She states that it helps a little bit with the nausea and vomiting. Advised patient to call/come in if she is unable to keep any food or fluids down in a 24-hour period.TKRN Bacterial vaginal infection 02/03/201407/30 Overview: February 03, 2014 Treated Minna Santoro MD with uncertain dates 10/23/2013 1 Overview: 10/23/2013 Patient states she is unsure of the first day of her last menstrual period. Discussed with Dr. Cazares and she ordered an ultrasound. TKRN Heart murmur 10/23/2013 02/23/2014 Overview: 10/23/[address] Belcher when she was 20 days old and was given a referral for cardiac work-up. Mother stated previously that she never had this done because their family doctor said the murmur resolved and was due to pt's prematurity and group B Strep infection. TKRN February 23, 2014 no further eval for this at this time. Minna Santoro MD Asthma 02/23/2014 Overview: DIAGNOSED AT AGE 18 documented as of this encounter (statuses as of 07/21/2022) [facility] History of Past illness Narrative* Problem Noted Date Resolved Date Iron deficiency concern related to RLS 6 01/30/2018 Supervision of high-risk 04/02/2015 08/31/2015 Overview: On subutex Group B streptococcal infection during 02/08/2015 09/03/2015 Overview: rx for amoxil on 02/08/15- JV Nausea/vomiting in 01/27/201503/2015 Threatened 12/23/2014 09/03/2015 Subchorionic hematoma 12/23/2014 09/03/2015 Overview: Large 4.5 cm seen at 5-6 weeks Maternal drug use complicating , antepa rtum 06/01/2014 09/03/2015 Leukocytosis 05/29/2014 08/19/2014 Overview: 06/15/14 - attribute to pneumonia, repeat cbc once infection resolved - KJ Malaise 05/29/2014 08/19/2014 Pneumonia 05/29/2014 08/19/2014 History of labor 02/20/2014 014 Overview: 02/20/2014Patient states she has a history of labor with her second child. TKRN February 23, 2014 delivered at term with care elsewhere 4 08/19/2014 Overview: Patient states that she did have an ultrasound done by [facility] [employer] but no blood work for this . Patient signed a release of records form to obtain her records from [facility] [employer]. TKRN Nausea/vomiting in 02/20/2014 Overview: 02/20/2014 Patient is complaining of nausea and vomiting in . She has been prescribed Zofran and Reglan. She states that it helps a little bit with the nausea and vomiting. Advised patient to call/come in if she is unable to keep any food or fluids down in a 24-hour period.TKRN Bacterial vaginal infection 02/03/201407/30 Overview: February 03, 2014 Treated Minna Santoro MD with uncertain dates 10/23/2013 1 Overview: 10/23/2013 Patient states she is unsure of the first day of her last menstrual period. Discussed with Dr. Cazares and she ordered an ultrasound. TKRN Heart murmur 10/23/2013 02/23/2014 Overview: 10/23/[address] Belcher when she was 20 days old and was given a referral for cardiac work-up. Mother stated previously that she never had this done because their family doctor said the murmur resolved and was due to pt's prematurity and group B Strep infection. TKRN February 23, 2014 no further eval for this at this time. Minna Santoro MD Asthma 02/23/2014 Overview: DIAGNOSED AT AGE 18 documented as of this encounter (statuses as of 07/29/2022) [facility] History of Past illness Narrative* Problem Noted Date Resolved Date Iron deficiency concern related to RLS 6 01/30/2018 Supervision of high-risk 04/02/2015 08/31/2015 Overview: On subutex Group B streptococcal infection during 02/08/2015 09/03/2015 Overview: rx for amoxil on 02/08/15- JV Nausea/vomiting in 01/27/201503/2015 Threatened 12/23/2014 09/03/2015 Subchorionic hematoma 12/23/2014 09/03/2015 Overview: Large 4.5 cm seen at 5-6 weeks Maternal drug use complicating , antepa rtum 06/01/2014 09/03/2015 Leukocytosis 05/29/2014 08/19/2014 Overview: 06/15/14 - attribute to pneumonia, repeat cbc once infection resolved - KJ Malaise 05/29/2014 08/19/2014 Pneumonia 05/29/2014 08/19/2014 History of labor 02/20/2014 014 Overview: 02/20/2014Patient states she has a history of labor with her second child. TKRN February 23, 2014 delivered at term with care elsewhere 4 08/19/2014 Overview: Patient states that she did have an ultrasound done by [facility] [employer] but no blood work for this . Patient signed a release of records form to obtain her records from [facility] [employer]. TKRN Nausea/vomiting in 02/20/2014 Overview: 02/20/2014 Patient is complaining of nausea and vomiting in . She has been prescribed Zofran and Reglan. She states that it helps a little bit with the nausea and vomiting. Advised patient to call/come in if she is unable to keep any food or fluids down in a 24-hour period.TKRN Bacterial vaginal infection 02/03/201407/30 Overview: February 03, 2014 Treated Minna Santoro MD with uncertain dates 10/23/2013 1 Overview: 10/23/2013 Patient states she is unsure of the first day of her last menstrual period. Discussed with Dr. Cazares and she ordered an ultrasound. TKRN Heart murmur 10/23/2013 02/23/2014 Overview: 10/23/[address] Belcher when she was 20 days old and was given a referral for cardiac work-up. Mother stated previously that she never had this done because their family doctor said the murmur resolved and was due to pt's prematurity and group B Strep infection. TKRN February 23, 2014 no further eval for this at this time. Minna Santoro MD Asthma 02/23/2014 Overview: DIAGNOSED AT AGE 18 documented as of this encounter (statuses as of 08/04/2022) [facility] History of Past illness Narrative* Problem Noted Date Resolved Date Iron deficiency concern related to RLS 6 01/30/2018 Supervision of high-risk 04/02/2015 08/31/2015 Overview: On subutex Group B streptococcal infection during 02/08/2015 09/03/2015 Overview: rx for amoxil on 02/08/15- JV Nausea/vomiting in 01/27/201503/2015 Threatened 12/23/2014 09/03/2015 Subchorionic hematoma 12/23/2014 09/03/2015 Overview: Large 4.5 cm seen at 5-6 weeks Maternal drug use complicating , antepa rtum 06/01/2014 09/03/2015 Leukocytosis 05/29/2014 08/19/2014 Overview: 06/15/14 - attribute to pneumonia, repeat cbc once infection resolved - KJ Malaise 05/29/2014 08/19/2014 Pneumonia 05/29/2014 08/19/2014 History of labor 02/20/2014 014 Overview: 02/20/2014Patient states she has a history of labor with her second child. TKRN February 23, 2014 delivered at term with care elsewhere 4 08/19/2014 Overview: Patient states that she did have an ultrasound done by [facility] [employer] but no blood work for this . Patient signed a release of records form to obtain her records from [facility] [employer]. TKRN Nausea/vomiting in 02/20/2014 Overview: 02/20/2014 Patient is complaining of nausea and vomiting in . She has been prescribed Zofran and Reglan. She states that it helps a little bit with the nausea and vomiting. Advised patient to call/come in if she is unable to keep any food or fluids down in a 24-hour period.TKRN Bacterial vaginal infection 02/03/201407/30 Overview: February 03, 2014 Treated Minna Santoro MD with uncertain dates 10/23/2013 1 Overview: 10/23/2013 Patient states she is unsure of the first day of her last menstrual period. Discussed with Dr. Cazares and she ordered an ultrasound. TKRN Heart murmur 10/23/2013 02/23/2014 Overview: 10/23/[address] Belcher when she was 20 days old and was given a referral for cardiac work-up. Mother stated previously that she never had this done because their family doctor said the murmur resolved and was due to pt's prematurity and group B Strep infection. TKRN February 23, 2014 no further eval for this at this time. Minna Santoro MD Asthma 02/23/2014 Overview: DIAGNOSED AT AGE 18 documented as of this encounter (statuses as of 08/07/2022) [facility] History of Past illness Narrative* Problem Noted Date Resolved Date Iron deficiency concern related to RLS 6 01/30/2018 Supervision of high-risk 04/02/2015 08/31/2015 Overview: On subutex Group B streptococcal infection during 02/08/2015 09/03/2015 Overview: rx for amoxil on 02/08/15- JV Nausea/vomiting in 01/27/201503/2015 Threatened 12/23/2014 09/03/2015 Subchorionic hematoma 12/23/2014 09/03/2015 Overview: Large 4.5 cm seen at 5-6 weeks Maternal drug use complicating , antepa rtum 06/01/2014 09/03/2015 Leukocytosis 05/29/2014 08/19/2014 Overview: 06/15/14 - attribute to pneumonia, repeat cbc once infection resolved - KJ Malaise 05/29/2014 08/19/2014 Pneumonia 05/29/2014 08/19/2014 History of labor 02/20/2014 014 Overview: 02/20/2014Patient states she has a history of labor with her second child. TKRN February 23, 2014 delivered at term with care elsewhere 4 08/19/2014 Overview: Patient states that she did have an ultrasound done by [facility] [employer] but no blood work for this . Patient signed a release of records form to obtain her records from [facility] [employer]. TKRN Nausea/vomiting in 02/20/2014 Overview: 02/20/2014 Patient is complaining of nausea and vomiting in . She has been prescribed Zofran and Reglan. She states that it helps a little bit with the nausea and vomiting. Advised patient to call/come in if she is unable to keep any food or fluids down in a 24-hour period.TKRN Bacterial vaginal infection 02/03/201407/30 Overview: February 03, 2014 Treated Minna Santoro MD with uncertain dates 10/23/2013 1 Overview: 10/23/2013 Patient states she is unsure of the first day of her last menstrual period. Discussed with Dr. Cazares and she ordered an ultrasound. TKRN Heart murmur 10/23/2013 02/23/2014 Overview: 10/23/[address] Belcher when she was 20 days old and was given a referral for cardiac work-up. Mother stated previously that she never had this done because their family doctor said the murmur resolved and was due to pt's prematurity and group B Strep infection. TKRN February 23, 2014 no further eval for this at this time. Minna Santoro MD Asthma 02/23/2014 Overview: DIAGNOSED AT AGE 18 documented as of this encounter (statuses as of 09/19/2022) [facility] History of Past illness Narrative* Problem Noted Date Resolved Date Iron deficiency concern related to RLS 6 01/30/2018 Supervision of high-risk 04/02/2015 08/31/2015 Overview: On subutex Group B streptococcal infection during 02/08/2015 09/03/2015 Overview: rx for amoxil on 02/08/15- JV Nausea/vomiting in 01/27/201503/2015 Threatened 12/23/2014 09/03/2015 Subchorionic hematoma 12/23/2014 09/03/2015 Overview: Large 4.5 cm seen at 5-6 weeks Maternal drug use complicating , antepa rtum 06/01/2014 09/03/2015 Leukocytosis 05/29/2014 08/19/2014 Overview: 06/15/14 - attribute to pneumonia, repeat cbc once infection resolved - KJ Malaise 05/29/2014 08/19/2014 Pneumonia 05/29/2014 08/19/2014 History of labor 02/20/2014 014 Overview: 02/20/2014Patient states she has a history of labor with her second child. TKRN February 23, 2014 delivered at term with care elsewhere 4 08/19/2014 Overview: Patient states that she did have an ultrasound done by [facility] [employer] but no blood work for this . Patient signed a release of records form to obtain her records from [facility] [facility] [facility]. TKRN Nausea/vomiting in 02/20/2014 Overview: 02/20/2014 Patient is complaining of nausea and vomiting in . She has been prescribed Zofran and Reglan. She states that it helps a little bit with the nausea and vomiting. Advised patient to call/come in if she is unable to keep any food or fluids down in a 24-hour period.TKRN Bacterial vaginal infection 02/03/201407/30 Overview: February 03, 2014 Treated Minna Santoro MD with uncertain dates 10/23/2013 1 Overview: 10/23/2013 Patient states she is unsure of the first day of her last menstrual period. Discussed with Dr. Cazares and she ordered an ultrasound. TKRN Heart murmur 10/23/2013 02/23/2014 Overview: 10/23/[address] Belcher when she was 20 days old and was given a referral for cardiac work-up. Mother stated previously that she never had this done because their family doctor said the murmur resolved and was due to pt's prematurity and group B Strep infection. TKRN February 23, 2014 no further eval for this at this time. Minna Santoro MD Asthma 02/23/2014 Overview: DIAGNOSED AT AGE 18 documented as of this encounter (statuses as of 09/20/2022) [facility] History of Past illness Narrative* Problem Noted Date Resolved Date Iron deficiency concern related to RLS 6 01/30/2018 Supervision of high-risk 04/02/2015 08/31/2015 Overview: On subutex Group B streptococcal infection during 02/08/2015 09/03/2015 Overview: rx for amoxil on 02/08/15- JV Nausea/vomiting in 01/27/201503/2015 Threatened 12/23/2014 09/03/2015 Subchorionic hematoma 12/23/2014 09/03/2015 Overview: Large 4.5 cm seen at 5-6 weeks Maternal drug use complicating , antepa rtum 06/01/2014 09/03/2015 Leukocytosis 05/29/2014 08/19/2014 Overview: 06/15/14 - attribute to pneumonia, repeat cbc once infection resolved - KJ Malaise 05/29/2014 08/19/2014 Pneumonia 05/29/2014 08/19/2014 History of labor 02/20/2014 014 Overview: 02/20/2014Patient states she has a history of labor with her second child. TKRN February 23, 2014 delivered at term with care elsewhere 4 08/19/2014 Overview: Patient states that she did have an ultrasound done by [facility] [employer] but no blood work for this . Patient signed a release of records form to obtain her records from [facility] [facility]. TKRN Nausea/vomiting in 02/20/2014 Overview: 02/20/2014 Patient is complaining of nausea and vomiting in . She has been prescribed Zofran and Reglan. She states that it helps a little bit with the nausea and vomiting. Advised patient to call/come in if she is unable to keep any food or fluids down in a 24-hour period.TKRN Bacterial vaginal infection 02/03/201407/30 Overview: February 03, 2014 Treated Minna Santoro MD with uncertain dates 10/23/2013 1 Overview: 10/23/2013 Patient states she is unsure of the first day of her last menstrual period. Discussed with Dr. Cazares and she ordered an ultrasound. TKRN Heart murmur 10/23/2013 02/23/2014 Overview: 10/23/[address] Belcher when she was 20 days old and was given a referral for cardiac work-up. Mother stated previously that she never had this done because their family doctor said the murmur resolved and was due to pt's prematurity and group B Strep infection. TKRN February 23, 2014 no further eval for this at this time. Minna Santoro MD Asthma 02/23/2014 Overview: DIAGNOSED AT AGE 18 documented as of this encounter (statuses as of 09/25/2022) [facility] History of Past illness Narrative* Problem Noted Date Resolved Date Iron deficiency concern related to RLS 6 01/30/2018 Supervision of high-risk 04/02/2015 08/31/2015 Overview: On subutex Group B streptococcal infection during 02/08/2015 09/03/2015 Overview: rx for amoxil on 02/08/15- JV Nausea/vomiting in 01/27/201503/2015 Threatened 12/23/2014 09/03/2015 Subchorionic hematoma 12/23/2014 09/03/2015 Overview: Large 4.5 cm seen at 5-6 weeks Maternal drug use complicating , antepa rtum 06/01/2014 09/03/2015 Leukocytosis 05/29/2014 08/19/2014 Overview: 06/15/14 - attribute to pneumonia, repeat cbc once infection resolved - KJ Malaise 05/29/2014 08/19/2014 Pneumonia 05/29/2014 08/19/2014 History of labor 02/20/2014 014 Overview: 02/20/2014Patient states she has a history of labor with her second child. TKRN February 23, 2014 delivered at term with care elsewhere 4 08/19/2014 Overview: Patient states that she did have an ultrasound done by [facility] [employer] but no blood work for this . Patient signed a release of records form to obtain her records from [facility]. TKRN Nausea/vomiting in 02/20/2014 Overview: 02/20/2014 Patient is complaining of nausea and vomiting in . She has been prescribed Zofran and Reglan. She states that it helps a little bit with the nausea and vomiting. Advised patient to call/come in if she is unable to keep any food or fluids down in a 24-hour period.TKRN Bacterial vaginal infection 02/03/201407/30 Overview: February 03, 2014 Treated Minna Santoro MD with uncertain dates 10/23/2013 1 Overview: 10/23/2013 Patient states she is unsure of the first day of her last menstrual period. Discussed with Dr. Cazares and she ordered an ultrasound. TKRN Heart murmur 10/23/2013 02/23/2014 Overview: 10/23/[address] Belcher when she was 20 days old and was given a referral for cardiac work-up. Mother stated previously that she never had this done because their family doctor said the murmur resolved and was due to pt's prematurity and group B Strep infection. TKRN February 23, 2014 no further eval for this at this time. Minna Santoro MD Asthma 02/23/2014 Overview: DIAGNOSED AT AGE 18 documented as of this encounter (statuses as of 10/11/2022) [facility] History of Past illness Narrative* Problem Noted Date Resolved Date Iron deficiency concern related to RLS 6 01/30/2018 Supervision of high-risk 04/02/2015 08/31/2015 Overview: On subutex Group B streptococcal infection during 02/08/2015 09/03/2015 Overview: rx for amoxil on 02/08/15- JV Nausea/vomiting in 01/27/201503/2015 Threatened 12/23/2014 09/03/2015 Subchorionic hematoma 12/23/2014 09/03/2015 Overview: Large 4.5 cm seen at 5-6 weeks Maternal drug use complicating , antepa rtum 06/01/2014 09/03/2015 Leukocytosis 05/29/2014 08/19/2014 Overview: 06/15/14 - attribute to pneumonia, repeat cbc once infection resolved - KJ Malaise 05/29/2014 08/19/2014 Pneumonia 05/29/2014 08/19/2014 History of labor 02/20/2014 014 Overview: 02/20/2014Patient states she has a history of labor with her second child. TKRN February 23, 2014 delivered at term with care elsewhere 4 08/19/2014 Overview: Patient states that she did have an ultrasound done by [facility] [employer] but no blood work for this . Patient signed a release of records form to obtain her records from [facility]. TKRN Nausea/vomiting in 02/20/2014 Overview: 02/20/2014 Patient is complaining of nausea and vomiting in . She has been prescribed Zofran and Reglan. She states that it helps a little bit with the nausea and vomiting. Advised patient to call/come in if she is unable to keep any food or fluids down in a 24-hour period.TKRN Bacterial vaginal infection 02/03/201407/30 Overview: February 03, 2014 Treated Minna Santoro MD with uncertain dates 10/23/2013 1 Overview: 10/23/2013 Patient states she is unsure of the first day of her last menstrual period. Discussed with Dr. Cazares and she ordered an ultrasound. TKRN Heart murmur 10/23/2013 02/23/2014 Overview: 10/23/[address] Belcher when she was 20 days old and was given a referral for cardiac work-up. Mother stated previously that she never had this done because their family doctor said the murmur resolved and was due to pt's prematurity and group B Strep infection. TKRN February 23, 2014 no further eval for this at this time. Minna Santoro MD Asthma 02/23/2014 Overview: DIAGNOSED AT AGE 18 documented as of this encounter (statuses as of 10/12/2022) [facility] History of Past illness Narrative* Problem Noted Date Resolved Date Iron deficiency concern related to RLS 6 01/30/2018 Supervision of high-risk 04/02/2015 08/31/2015 Overview: On subutex Group B streptococcal infection during 02/08/2015 09/03/2015 Overview: rx for amoxil on 02/08/15- JV Nausea/vomiting in 01/27/201503/2015 Threatened 12/23/2014 09/03/2015 Subchorionic hematoma 12/23/2014 09/03/2015 Overview: Large 4.5 cm seen at 5-6 weeks Maternal drug use complicating , antepa rtum 06/01/2014 09/03/2015 Leukocytosis 05/29/2014 08/19/2014 Overview: 06/15/14 - attribute to pneumonia, repeat cbc once infection resolved - KJ Malaise 05/29/2014 08/19/2014 Pneumonia 05/29/2014 08/19/2014 History of labor 02/20/2014 014 Overview: 02/20/2014Patient states she has a history of labor with her second child. TKRN February 23, 2014 delivered at term with care elsewhere 4 08/19/2014 Overview: Patient states that she did have an ultrasound done by [facility] [employer] but no blood work for this . Patient signed a release of records form to obtain her records from [facility] [employer]. TKRN Nausea/vomiting in 02/20/2014 Overview: 02/20/2014 Patient is complaining of nausea and vomiting in . She has been prescribed Zofran and Reglan. She states that it helps a little bit with the nausea and vomiting. Advised patient to call/come in if she is unable to keep any food or fluids down in a 24-hour period.TKRN Bacterial vaginal infection 02/03/201407/30 Overview: February 03, 2014 Treated Minna Santoro MD with uncertain dates 10/23/2013 1 Overview: 10/23/2013 Patient states she is unsure of the first day of her last menstrual period. Discussed with Dr. Cazares and she ordered an ultrasound. TKRN Heart murmur 10/23/2013 02/23/2014 Overview: 10/23/[address] Belcher when she was 20 days old and was given a referral for cardiac work-up. Mother stated previously that she never had this done because their family doctor said the murmur resolved and was due to pt's prematurity and group B Strep infection. TKRN February 23, 2014 no further eval for this at this time. Minna Santoro MD Asthma 02/23/2014 Overview: DIAGNOSED AT AGE 18 documented as of this encounter (statuses as of 11/16/2022) [facility] History of Past illness Narrative* Problem Noted Date Resolved Date Iron deficiency concern related to RLS 6 01/30/2018 Supervision of high-risk 04/02/2015 08/31/2015 Overview: On subutex Group B streptococcal infection during 02/08/2015 09/03/2015 Overview: rx for amoxil on 02/08/15- JV Nausea/vomiting in 01/27/201503/2015 Threatened 12/23/2014 09/03/2015 Subchorionic hematoma 12/23/2014 09/03/2015 Overview: Large 4.5 cm seen at 5-6 weeks Maternal drug use complicating , antepa rtum 06/01/2014 09/03/2015 Leukocytosis 05/29/2014 08/19/2014 Overview: 06/15/14 - attribute to pneumonia, repeat cbc once infection resolved - KJ Malaise 05/29/2014 08/19/2014 Pneumonia 05/29/2014 08/19/2014 History of labor 02/20/2014 014 Overview: 02/20/2014Patient states she has a history of labor with her second child. TKRN February 23, 2014 delivered at term with care elsewhere 4 08/19/2014 Overview: Patient states that she did have an ultrasound done by [facility] [employer] but no blood work for this . Patient signed a release of records form to obtain her records from [facility] [employer]. TKRN Nausea/vomiting in 02/20/2014 Overview: 02/20/2014 Patient is complaining of nausea and vomiting in . She has been prescribed Zofran and Reglan. She states that it helps a little bit with the nausea and vomiting. Advised patient to call/come in if she is unable to keep any food or fluids down in a 24-hour period.TKRN Bacterial vaginal infection 02/03/201407/30 Overview: February 03, 2014 Treated Minna Santoro MD with uncertain dates 10/23/2013 1 Overview: 10/23/2013 Patient states she is unsure of the first day of her last menstrual period. Discussed with Dr. Cazares and she ordered an ultrasound. TKRN Heart murmur 10/23/2013 02/23/2014 Overview: 10/23/[address] Belcher when she was 20 days old and was given a referral for cardiac work-up. Mother stated previously that she never had this done because their family doctor said the murmur resolved and was due to pt's prematurity and group B Strep infection. TKRN February 23, 2014 no further eval for this at this time. Minna Santoro MD Asthma 02/23/2014 Overview: DIAGNOSED AT AGE 18 documented as of this encounter (statuses as of 12/18/2022) [facility] History of Past illness Narrative* Problem Noted Date Resolved Date Iron deficiency concern related to RLS 6 01/30/2018 Supervision of high-risk 04/02/2015 08/31/2015 Overview: On subutex Group B streptococcal infection during 02/08/2015 09/03/2015 Overview: rx for amoxil on 02/08/15- JV Nausea/vomiting in 01/27/201503/2015 Threatened 12/23/2014 09/03/2015 Subchorionic hematoma 12/23/2014 09/03/2015 Overview: Large 4.5 cm seen at 5-6 weeks Maternal drug use complicating , antepa rtum 06/01/2014 09/03/2015 Leukocytosis 05/29/2014 08/19/2014 Overview: 06/15/14 - attribute to pneumonia, repeat cbc once infection resolved - KJ Malaise 05/29/2014 08/19/2014 Pneumonia 05/29/2014 08/19/2014 History of labor 02/20/2014 014 Overview: 02/20/2014Patient states she has a history of labor with her second child. TKRN February 23, 2014 delivered at term with care elsewhere 4 08/19/2014 Overview: Patient states that she did have an ultrasound done by [facility] [employer] but no blood work for this . Patient signed a release of records form to obtain her records from [facility] [employer]. TKRN Nausea/vomiting in 02/20/2014 Overview: 02/20/2014 Patient is complaining of nausea and vomiting in . She has been prescribed Zofran and Reglan. She states that it helps a little bit with the nausea and vomiting. Advised patient to call/come in if she is unable to keep any food or fluids down in a 24-hour period.TKRN Bacterial vaginal infection 02/03/201407/30 Overview: February 03, 2014 Treated Minna Santoro MD with uncertain dates 10/23/2013 1 Overview: 10/23/2013 Patient states she is unsure of the first day of her last menstrual period. Discussed with Dr. Cazares and she ordered an ultrasound. TKRN Heart murmur 10/23/2013 02/23/2014 Overview: 10/23/[address] Belcher when she was 20 days old and was given a referral for cardiac work-up. Mother stated previously that she never had this done because their family doctor said the murmur resolved and was due to pt's prematurity and group B Strep infection. TKRN February 23, 2014 no further eval for this at this time. Minna Santoro MD Asthma 02/23/2014 Overview: DIAGNOSED AT AGE 18 documented as of this encounter (statuses as of 01/02/2023) [facility] History of Past illness Narrative* Problem Noted Date Resolved Date Iron deficiency concern related to RLS 6 01/30/2018 Supervision of high-risk 04/02/2015 08/31/2015 Overview: On subutex Group B streptococcal infection during 02/08/2015 09/03/2015 Overview: rx for amoxil on 02/08/15- JV Nausea/vomiting in 01/27/201503/2015 Threatened 12/23/2014 09/03/2015 Subchorionic hematoma 12/23/2014 09/03/2015 Overview: Large 4.5 cm seen at 5-6 weeks Maternal drug use complicating , antepa rtum 06/01/2014 09/03/2015 Leukocytosis 05/29/2014 08/19/2014 Overview: 06/15/14 - attribute to pneumonia, repeat cbc once infection resolved - KJ Malaise 05/29/2014 08/19/2014 Pneumonia 05/29/2014 08/19/2014 History of labor 02/20/2014 014 Overview: 02/20/2014Patient states she has a history of labor with her second child. TKRN February 23, 2014 delivered at term with care elsewhere 4 08/19/2014 Overview: Patient states that she did have an ultrasound done by [facility] [employer] but no blood work for this . Patient signed a release of records form to obtain her records from [facility] [employer]. TKRN Nausea/vomiting in 02/20/2014 Overview: 02/20/2014 Patient is complaining of nausea and vomiting in . She has been prescribed Zofran and Reglan. She states that it helps a little bit with the nausea and vomiting. Advised patient to call/come in if she is unable to keep any food or fluids down in a 24-hour period.TKRN Bacterial vaginal infection 02/03/201407/30 Overview: February 03, 2014 Treated Minna Santoro MD with uncertain dates 10/23/2013 1 Overview: 10/23/2013 Patient states she is unsure of the first day of her last menstrual period. Discussed with Dr. Cazares and she ordered an ultrasound. TKRN Heart murmur 10/23/2013 02/23/2014 Overview: 10/23/[address] Belcher when she was 20 days old and was given a referral for cardiac work-up. Mother stated previously that she never had this done because their family doctor said the murmur resolved and was due to pt's prematurity and group B Strep infection. TKRN February 23, 2014 no further eval for this at this time. Minna Santoro MD Asthma 02/23/2014 Overview: DIAGNOSED AT AGE 18 documented as of this encounter (statuses as of 01/04/2023) [facility] History of Past illness Narrative* Problem Noted Date Resolved Date Iron deficiency concern related to RLS 6 01/30/2018 Supervision of high-risk 04/02/2015 08/31/2015 Overview: On subutex Group B streptococcal infection during 02/08/2015 09/03/2015 Overview: rx for amoxil on 02/08/15- JV Nausea/vomiting in 01/27/201503/2015 Threatened 12/23/2014 09/03/2015 Subchorionic hematoma 12/23/2014 09/03/2015 Overview: Large 4.5 cm seen at 5-6 weeks Maternal drug use complicating , antepa rtum 06/01/2014 09/03/2015 Leukocytosis 05/29/2014 08/19/2014 Overview: 06/15/14 - attribute to pneumonia, repeat cbc once infection resolved - KJ Malaise 05/29/2014 08/19/2014 Pneumonia 05/29/2014 08/19/2014 History of labor 02/20/2014 014 Overview: 02/20/2014Patient states she has a history of labor with her second child. TKRN February 23, 2014 delivered at term with care elsewhere 4 08/19/2014 Overview: Patient states that she did have an ultrasound done by [facility] [employer] but no blood work for this . Patient signed a release of records form to obtain her records from [facility] [employer]. TKRN Nausea/vomiting in 02/20/2014 Overview: 02/20/2014 Patient is complaining of nausea and vomiting in . She has been prescribed Zofran and Reglan. She states that it helps a little bit with the nausea and vomiting. Advised patient to call/come in if she is unable to keep any food or fluids down in a 24-hour period.TKRN Bacterial vaginal infection 02/03/201407/30 Overview: February 03, 2014 Treated Minna Santoro MD with uncertain dates 10/23/2013 1 Overview: 10/23/2013 Patient states she is unsure of the first day of her last menstrual period. Discussed with Dr. Cazares and she ordered an ultrasound. TKRN Heart murmur 10/23/2013 02/23/2014 Overview: 10/23/[address] Belcher when she was 20 days old and was given a referral for cardiac work-up. Mother stated previously that she never had this done because their family doctor said the murmur resolved and was due to pt's prematurity and group B Strep infection. TKRN February 23, 2014 no further eval for this at this time. Minna Santoro MD Asthma 02/23/2014 Overview: DIAGNOSED AT AGE 18 documented as of this encounter (statuses as of 01/05/2023) [facility] History of Past illness Narrative* Problem Noted Date Resolved Date Iron deficiency concern related to RLS 6 01/30/2018 Supervision of high-risk 04/02/2015 08/31/2015 Overview: On subutex Group B streptococcal infection during 02/08/2015 09/03/2015 Overview: rx for amoxil on 02/08/15- JV Nausea/vomiting in 01/27/201503/2015 Threatened 12/23/2014 09/03/2015 Subchorionic hematoma 12/23/2014 09/03/2015 Overview: Large 4.5 cm seen at 5-6 weeks Maternal drug use complicating , antepa rtum 06/01/2014 09/03/2015 Leukocytosis 05/29/2014 08/19/2014 Overview: 06/15/14 - attribute to pneumonia, repeat cbc once infection resolved - KJ Malaise 05/29/2014 08/19/2014 Pneumonia 05/29/2014 08/19/2014 History of labor 02/20/2014 014 Overview: 02/20/2014Patient states she has a history of labor with her second child. TKRN February 23, 2014 delivered at term with care elsewhere 4 08/19/2014 Overview: Patient states that she did have an ultrasound done by [facility] [employer] but no blood work for this . Patient signed a release of records form to obtain her records from [facility] [employer]. TKRN Nausea/vomiting in 02/20/2014 Overview: 02/20/2014 Patient is complaining of nausea and vomiting in . She has been prescribed Zofran and Reglan. She states that it helps a little bit with the nausea and vomiting. Advised patient to call/come in if she is unable to keep any food or fluids down in a 24-hour period.TKRN Bacterial vaginal infection 02/03/201407/30 Overview: February 03, 2014 Treated Minna Santoro MD with uncertain dates 10/23/2013 1 Overview: 10/23/2013 Patient states she is unsure of the first day of her last menstrual period. Discussed with Dr. Cazares and she ordered an ultrasound. TKRN Heart murmur 10/23/2013 02/23/2014 Overview: 10/23/[address] Belcher when she was 20 days old and was given a referral for cardiac work-up. Mother stated previously that she never had this done because their family doctor said the murmur resolved and was due to pt's prematurity and group B Strep infection. TKRN February 23, 2014 no further eval for this at this time. Minna Santoro MD Asthma 02/23/2014 Overview: DIAGNOSED AT AGE 18 documented as of this encounter (statuses as of 01/10/2023) [facility] History of Past illness Narrative* Problem Noted Date Resolved Date Iron deficiency concern related to RLS 6 01/30/2018 Supervision of high-risk 04/02/2015 08/31/2015 Overview: On subutex Group B streptococcal infection during 02/08/2015 09/03/2015 Overview: rx for amoxil on 02/08/15- JV Nausea/vomiting in 01/27/201503/2015 Threatened 12/23/2014 09/03/2015 Subchorionic hematoma 12/23/2014 09/03/2015 Overview: Large 4.5 cm seen at 5-6 weeks Maternal drug use complicating , antepa rtum 06/01/2014 09/03/2015 Leukocytosis 05/29/2014 08/19/2014 Overview: 06/15/14 - attribute to pneumonia, repeat cbc once infection resolved - KJ Malaise 05/29/2014 08/19/2014 Pneumonia 05/29/2014 08/19/2014 History of labor 02/20/2014 014 Overview: 02/20/2014Patient states she has a history of labor with her second child. TKRHeidi February 23, 2014 delivered at term with care elsewhere 4 08/19/2014 Overview: Patient states that she did have an ultrasound done by [facility] [employer] but no blood work for this . Patient signed a release of records form to obtain her records from [facility] [employer]. TKRN Nausea/vomiting in 02/20/2014 Overview: 02/20/2014 Patient is complaining of nausea and vomiting in . She has been prescribed Zofran and Reglan. She states that it helps a little bit with the nausea and vomiting. Advised patient to call/come in if she is unable to keep any food or fluids down in a 24-hour period.TKRN Bacterial vaginal infection 02/03/201407/30 Overview: February 03, 2014 Treated Minna Santoro MD with uncertain dates 10/23/2013 1 Overview: 10/23/2013 Patient states she is unsure of the first day of her last menstrual period. Discussed with Dr. aCzares and she ordered an ultrasound. TKRN Heart murmur 10/23/2013 02/23/2014 Overview: 10/23/[address] Belcher when she was 20 days old and was given a referral for cardiac work-up. Mother stated previously that she never had this done because their family doctor said the murmur resolved and was due to pt's prematurity and group B Strep infection. TKRN February 23, 2014 no further eval for this at this time. Minna Santoro MD Asthma 02/23/2014 Overview: DIAGNOSED AT AGE 18 documented as of this encounter (statuses as of 01/11/2023) [facility]11-[facility] History of Past illness Narrative* Problem Noted Date Resolved Date Iron deficiency concern related to RLS 6 01/30/2018 Supervision of high-risk 04/02/2015 08/31/2015 Overview: On subutex Group B streptococcal infection during 02/08/2015 09/03/2015 Overview: rx for amoxil on 02/08/15- JV Nausea/vomiting in 01/27/201503/2015 Threatened 12/23/2014 09/03/2015 Subchorionic hematoma 12/23/2014 09/03/2015 Overview: Large 4.5 cm seen at 5-6 weeks Maternal drug use complicating , antepa rtum 06/01/2014 09/03/2015 Leukocytosis 05/29/2014 08/19/2014 Overview: 06/15/14 - attribute to pneumonia, repeat cbc once infection resolved - KJ Malaise 05/29/2014 08/19/2014 Pneumonia 05/29/2014 08/19/2014 History of labor 02/20/201402/23/ 014 Overview: 02/20/2014Patient states she has a history of labor with her second child. TKRN February 23, 2014 delivered at term with care elsewhere 4 08/19/2014 Overview: Patient states that she did have an ultrasound done by [facility] [employer] [facility] but no blood work for this . Patient signed a release of records form to obtain her records from [facility] [facility] [facility]. TKRN Nausea/vomiting in 02/20/2014 Overview: 02/20/2014 Patient is complaining of nausea and vomiting in . She has been prescribed Zofran and Reglan. She states that it helps a little bit with the nausea and vomiting. Advised patient to call/come in if she is unable to keep any food or fluids down in a 24-hour period.TKRN Bacterial vaginal infection 02/03/201407/30 Overview: February 03, 2014 Treated Minna Santoro MD with uncertain dates 10/23/2013 1 Overview: 10/23/2013 Patient states she is unsure of the first day of her last menstrual period. Discussed with Dr. Cazares and she ordered an ultrasound. TKRN Heart murmur 10/23/2013 02/23/2014 Overview: 10/23/[address] Belcher when she was 20 days old and was given a referral for cardiac work-up. Mother stated previously that she never had this done because their family doctor said the murmur resolved and was due to pt's prematurity and group B Strep infection. TKRN February 23, 2014 no further eval for this at this time. Minna Santoro MD Asthma 02/23/2014 Overview: DIAGNOSED AT AGE 18 documented as of this encounter (statuses as of 02/03/2023) [facility] History of Past illness Narrative* Problem Noted Date Resolved Date Iron deficiency concern related to RLS 6 01/30/2018 Supervision of high-risk 04/02/2015 08/31/2015 Overview: On subutex Group B streptococcal infection during 02/08/2015 09/03/2015 Overview: rx for amoxil on 02/08/15- JV Nausea/vomiting in 01/27/201503/2015 Threatened 12/23/2014 09/03/2015 Subchorionic hematoma 12/23/2014 09/03/2015 Overview: Large 4.5 cm seen at 5-6 weeks Maternal drug use complicating , antepa rtum 06/01/2014 09/03/2015 Leukocytosis 05/29/2014 08/19/2014 Overview: 06/15/14 - attribute to pneumonia, repeat cbc once infection resolved - KJ Malaise 05/29/2014 08/19/2014 Pneumonia 05/29/2014 08/19/2014 History of labor 02/20/2014 014 Overview: 02/20/2014Patient states she has a history of labor with her second child. TKRN February 23, 2014 delivered at term with care elsewhere 4 08/19/2014 Overview: Patient states that she did have an ultrasound done by [facility] [facility] but no blood work for this . Patient signed a release of records form to obtain her records from [facility] [facility]. TKRN Nausea/vomiting in 02/20/2014 Overview: 02/20/2014 Patient is complaining of nausea and vomiting in . She has been prescribed Zofran and Reglan. She states that it helps a little bit with the nausea and vomiting. Advised patient to call/come in if she is unable to keep any food or fluids down in a 24-hour period.TKRN Bacterial vaginal infection 02/03/201407/30 Overview: February 03, 2014 Treated Minna Santoro MD with uncertain dates 10/23/2013 1 Overview: 10/23/2013 Patient states she is unsure of the first day of her last menstrual period. Discussed with Dr. Cazares and she ordered an ultrasound. TKRN Heart murmur 10/23/2013 02/23/2014 Overview: 10/23/[address] Belcher when she was 20 days old and was given a referral for cardiac work-up. Mother stated previously that she never had this done because their family doctor said the murmur resolved and was due to pt's prematurity and group B Strep infection. TKRN February 23, 2014 no further eval for this at this time. Minna Santoro MD Asthma 02/23/2014 Overview: DIAGNOSED AT AGE 18 documented as of this encounter (statuses as of 02/05/2023) [facility] History of Past illness Narrative* Problem Noted Date Resolved Date Iron deficiency concern related to RLS 6 01/30/2018 Supervision of high-risk 04/02/2015 08/31/2015 Overview: On subutex Group B streptococcal infection during 02/08/2015 09/03/2015 Overview: rx for amoxil on 02/08/15- JV Nausea/vomiting in 01/27/201503/2015 Threatened 12/23/2014 09/03/2015 Subchorionic hematoma 12/23/2014 09/03/2015 Overview: Large 4.5 cm seen at 5-6 weeks Maternal drug use complicating , antepa rtum 06/01/2014 09/03/2015 Leukocytosis 05/29/2014 08/19/2014 Overview: 06/15/14 - attribute to pneumonia, repeat cbc once infection resolved - KJ Malaise 05/29/2014 08/19/2014 Pneumonia 05/29/2014 08/19/2014 History of labor 02/20/2014 014 Overview: 02/20/2014Patient states she has a history of labor with her second child. TKRN February 23, 2014 delivered at term with care elsewhere 4 08/19/2014 Overview: Patient states that she did have an ultrasound done by [facility] but no blood work for this . Patient signed a release of records form to obtain her records from [facility]. TKRN Nausea/vomiting in 02/20/2014 Overview: 02/20/2014 Patient is complaining of nausea and vomiting in . She has been prescribed Zofran and Reglan. She states that it helps a little bit with the nausea and vomiting. Advised patient to call/come in if she is unable to keep any food or fluids down in a 24-hour period.TKRN Bacterial vaginal infection 02/03/201407/30 Overview: February 03, 2014 Treated Minna Santoro MD with uncertain dates 10/23/2013 1 Overview: 10/23/2013 Patient states she is unsure of the first day of her last menstrual period. Discussed with Dr. Cazares and she ordered an ultrasound. TKRN Heart murmur 10/23/2013 02/23/2014 Overview: 10/23/[address] Belcher when she was 20 days old and was given a referral for cardiac work-up. Mother stated previously that she never had this done because their family doctor said the murmur resolved and was due to pt's prematurity and group B Strep infection. TKRN February 23, 2014 no further eval for this at this time. Minna Santoro MD Asthma 02/23/2014 Overview: DIAGNOSED AT AGE 18 documented as of this encounter (statuses as of 02/21/2023) [facility] History of Past illness Narrative* Problem Noted Date Resolved Date Iron deficiency concern related to RLS 6 01/30/2018 Supervision of high-risk 04/02/2015 08/31/2015 Overview: On subutex Group B streptococcal infection during 02/08/2015 09/03/2015 Overview: rx for amoxil on 02/08/15- JV Nausea/vomiting in 01/27/201503/2015 Threatened 12/23/2014 09/03/2015 Subchorionic hematoma 12/23/2014 09/03/2015 Overview: Large 4.5 cm seen at 5-6 weeks Maternal drug use complicating , antepa rtum 06/01/2014 09/03/2015 Leukocytosis 05/29/2014 08/19/2014 Overview: 06/15/14 - attribute to pneumonia, repeat cbc once infection resolved - KJ Malaise 05/29/2014 08/19/2014 Pneumonia 05/29/2014 08/19/2014 History of labor 02/20/2014 014 Overview: 02/20/2014Patient states she has a history of labor with her second child. TKRN February 23, 2014 delivered at term with care elsewhere 4 08/19/2014 Overview: Patient states that she did have an ultrasound done by [facility] but no blood work for this . Patient signed a release of records form to obtain her records from [facility] [facility]. TKRN Nausea/vomiting in 02/20/2014 Overview: 02/20/2014 Patient is complaining of nausea and vomiting in . She has been prescribed Zofran and Reglan. She states that it helps a little bit with the nausea and vomiting. Advised patient to call/come in if she is unable to keep any food or fluids down in a 24-hour period.TKRN Bacterial vaginal infection 02/03/201407/30 Overview: February 03, 2014 Treated Minna Santoro MD with uncertain dates 10/23/2013 1 Overview: 10/23/2013 Patient states she is unsure of the first day of her last menstrual period. Discussed with Dr. Cazares and she ordered an ultrasound. TKRN Heart murmur 10/23/2013 02/23/2014 Overview: 10/23/[address] Belcher when she was 20 days old and was given a referral for cardiac work-up. Mother stated previously that she never had this done because their family doctor said the murmur resolved and was due to pt's prematurity and group B Strep infection. TKRN February 23, 2014 no further eval for this at this time. Minna Santoro MD Asthma 02/23/2014 Overview: DIAGNOSED AT AGE 18 documented as of this encounter (statuses as of 02/21/2023) [facility] History of Past illness Narrative* Problem Noted Date Resolved Date Iron deficiency concern related to RLS 6 01/30/2018 Supervision of high-risk 04/02/2015 08/31/2015 Overview: On subutex Group B streptococcal infection during 02/08/2015 09/03/2015 Overview: rx for amoxil on 02/08/15- JV Nausea/vomiting in 01/27/201503/2015 Threatened 12/23/2014 09/03/2015 Subchorionic hematoma 12/23/2014 09/03/2015 Overview: Large 4.5 cm seen at 5-6 weeks Maternal drug use complicating , antepa rtum 06/01/2014 09/03/2015 Leukocytosis 05/29/2014 08/19/2014 Overview: 06/15/14 - attribute to pneumonia, repeat cbc once infection resolved - KJ Malaise 05/29/2014 08/19/2014 Pneumonia 05/29/2014 08/19/2014 History of labor 02/20/2014 014 Overview: 02/20/2014Patient states she has a history of labor with her second child. TKRN February 23, 2014 delivered at term with care elsewhere 4 08/19/2014 Overview: Patient states that she did have an ultrasound done by [facility] but no blood work for this . Patient signed a release of records form to obtain her records from [facility]. TKRN Nausea/vomiting in 02/20/2014 Overview: 02/20/2014 Patient is complaining of nausea and vomiting in . She has been prescribed Zofran and Reglan. She states that it helps a little bit with the nausea and vomiting. Advised patient to call/come in if she is unable to keep any food or fluids down in a 24-hour period.TKRN Bacterial vaginal infection 02/03/201407/30 Overview: February 03, 2014 Treated Minna Santoro MD with uncertain dates 10/23/2013 1 Overview: 10/23/2013 Patient states she is unsure of the first day of her last menstrual period. Discussed with Dr. Cazares and she ordered an ultrasound. TKRN Heart murmur 10/23/2013 02/23/2014 Overview: 10/23/[address] Belcher when she was 20 days old and was given a referral for cardiac work-up. Mother stated previously that she never had this done because their family doctor said the murmur resolved and was due to pt's prematurity and group B Strep infection. TKRN February 23, 2014 no further eval for this at this time. Minna Santoro MD Asthma 02/23/2014 Overview: DIAGNOSED AT AGE 18 documented as of this encounter (statuses as of 02/22/2023) [facility] History of Past illness Narrative* Problem Noted Date Resolved Date Iron deficiency concern related to RLS 6 01/30/2018 Supervision of high-risk 04/02/2015 08/31/2015 Overview: On subutex Group B streptococcal infection during 02/08/2015 09/03/2015 Overview: rx for amoxil on 02/08/15- JV Nausea/vomiting in 01/27/201503/2015 Threatened 12/23/2014 09/03/2015 Subchorionic hematoma 12/23/2014 09/03/2015 Overview: Large 4.5 cm seen at 5-6 weeks Maternal drug use complicating , antepa rtum 06/01/2014 09/03/2015 Leukocytosis 05/29/2014 08/19/2014 Overview: 06/15/14 - attribute to pneumonia, repeat cbc once infection resolved - KJ Malaise 05/29/2014 08/19/2014 Pneumonia 05/29/2014 08/19/2014 History of labor 02/20/2014 014 Overview: 02/20/2014Patient states she has a history of labor with her second child. TKRN February 23, 2014 delivered at term with care elsewhere 4 08/19/2014 Overview: Patient states that she did have an ultrasound done by [facility] [employer] but no blood work for this . Patient signed a release of records form to obtain her records from [facility]. TKRN Nausea/vomiting in 02/20/2014 Overview: 02/20/2014 Patient is complaining of nausea and vomiting in . She has been prescribed Zofran and Reglan. She states that it helps a little bit with the nausea and vomiting. Advised patient to call/come in if she is unable to keep any food or fluids down in a 24-hour period.TKRN Bacterial vaginal infection 02/03/201407/30 Overview: February 03, 2014 Treated Minna Santoro MD with uncertain dates 10/23/2013 1 Overview: 10/23/2013 Patient states she is unsure of the first day of her last menstrual period. Discussed with Dr. Cazares and she ordered an ultrasound. TKRN Heart murmur 10/23/2013 02/23/2014 Overview: 10/23/[address] Belcher when she was 20 days old and was given a referral for cardiac work-up. Mother stated previously that she never had this done because their family doctor said the murmur resolved and was due to pt's prematurity and group B Strep infection. TKRN February 23, 2014 no further eval for this at this time. Minna Santoro MD Asthma 02/23/2014 Overview: DIAGNOSED AT AGE 18 documented as of this encounter (statuses as of 03/06/2023) [facility] History of Past illness Narrative* Problem Noted Date Resolved Date Iron deficiency concern related to RLS 6 01/30/2018 Supervision of high-risk 04/02/2015 08/31/2015 Overview: On subutex Group B streptococcal infection during 02/08/2015 09/03/2015 Overview: rx for amoxil on 02/08/15- JV Nausea/vomiting in 01/27/201503/2015 Threatened 12/23/2014 09/03/2015 Subchorionic hematoma 12/23/2014 09/03/2015 Overview: Large 4.5 cm seen at 5-6 weeks Maternal drug use complicating , antepa rtum 06/01/2014 09/03/2015 Leukocytosis 05/29/2014 08/19/2014 Overview: 06/15/14 - attribute to pneumonia, repeat cbc once infection resolved - KJ Malaise 05/29/2014 08/19/2014 Pneumonia 05/29/2014 08/19/2014 History of labor 02/20/2014 014 Overview: 02/20/2014Patient states she has a history of labor with her second child. TKRN February 23, 2014 delivered at term with care elsewhere 4 08/19/2014 Overview: Patient states that she did have an ultrasound done by [facility] but no blood work for this . Patient signed a release of records form to obtain her records from [facility]. TKRN Nausea/vomiting in 02/20/2014 Overview: 02/20/2014 Patient is complaining of nausea and vomiting in . She has been prescribed Zofran and Reglan. She states that it helps a little bit with the nausea and vomiting. Advised patient to call/come in if she is unable to keep any food or fluids down in a 24-hour period.TKRN Bacterial vaginal infection 02/03/201407/30 Overview: February 03, 2014 Treated Minna Santoro MD with uncertain dates 10/23/2013 1 Overview: 10/23/2013 Patient states she is unsure of the first day of her last menstrual period. Discussed with Dr. Cazares and she ordered an ultrasound. TKRN Heart murmur 10/23/2013 02/23/2014 Overview: 10/23/[address] Belcher when she was 20 days old and was given a referral for cardiac work-up. Mother stated previously that she never had this done because their family doctor said the murmur resolved and was due to pt's prematurity and group B Strep infection. TKRN February 23, 2014 no further eval for this at this time. Minna Santoro MD Asthma 02/23/2014 Overview: DIAGNOSED AT AGE 18 documented as of this encounter (statuses as of 03/07/2023) [facility] History of Past illness Narrative* Problem Noted Date Resolved Date Iron deficiency concern related to RLS 6 01/30/2018 Supervision of high-risk 04/02/2015 08/31/2015 Overview: On subutex Group B streptococcal infection during 02/08/2015 09/03/2015 Overview: rx for amoxil on 02/08/15- JV Nausea/vomiting in 01/27/201503/2015 Threatened 12/23/2014 09/03/2015 Subchorionic hematoma 12/23/2014 09/03/2015 Overview: Large 4.5 cm seen at 5-6 weeks Maternal drug use complicating , antepa rtum 06/01/2014 09/03/2015 Leukocytosis 05/29/2014 08/19/2014 Overview: 06/15/14 - attribute to pneumonia, repeat cbc once infection resolved - KJ Malaise 05/29/2014 08/19/2014 Pneumonia 05/29/2014 08/19/2014 History of labor 02/20/2014 014 Overview: 02/20/2014Patient states she has a history of labor with her second child. TKRN February 23, 2014 delivered at term with care elsewhere 4 08/19/2014 Overview: Patient states that she did have an ultrasound done by [facility] [employer] but no blood work for this . Patient signed a release of records form to obtain her records from [facility]. TKRN Nausea/vomiting in 02/20/2014 Overview: 02/20/2014 Patient is complaining of nausea and vomiting in . She has been prescribed Zofran and Reglan. She states that it helps a little bit with the nausea and vomiting. Advised patient to call/come in if she is unable to keep any food or fluids down in a 24-hour period.TKRN Bacterial vaginal infection 02/03/201407/30 Overview: February 03, 2014 Treated Minna Santoro MD with uncertain dates 10/23/2013 1 Overview: 10/23/2013 Patient states she is unsure of the first day of her last menstrual period. Discussed with Dr. Cazares and she ordered an ultrasound. TKRN Heart murmur 10/23/2013 02/23/2014 Overview: 10/23/[address] Belcher when she was 20 days old and was given a referral for cardiac work-up. Mother stated previously that she never had this done because their family doctor said the murmur resolved and was due to pt's prematurity and group B Strep infection. TKRN February 23, 2014 no further eval for this at this time. Minna Santoro MD Asthma 02/23/2014 Overview: DIAGNOSED AT AGE 18 documented as of this encounter (statuses as of 04/12/2023) [facility] History of Past illness Narrative* Problem Noted Date Diagnosed Date Resolved Date Iron deficiency concern related to RLS 09/20/2016 01/30/2018 Supervision of high-risk 04/02/2015 08/31/2015 Overview: On subutex Group B streptococcal infect ion during 02/08/2015 09/03/2015 Overview: rx for amoxil on 02/08/15- JV Nausea/vomiting in 01/27/2015 09/03/2015 Threatened 12/23/2014 09/03/20 15 Subchorionic hematoma 12/23/20142014 Overview: Large 4.5 cm seen at 5-6 weeks Maternal drug use complicati ng , antepartum 06/01/2014 09/03/2015 Leukocytosis 05/29/2014 08/19/2014 Overview: 06/15/14 - attribute to pneumonia, repeat cbc once infection resolved - KJ Malaise 05/29/2014 08/19/2014 Pneumonia 05/29/2014 08/19/2014 History of labor 02/20/2014 Overview: 02/20/2014Patient states she has a history of labor with her second child. TKRN February 23, 2014 delivered at term with care elsewhere 02/20/2014 08/19/2014 Overview: Patient states that she did have an ultrasound done by [facility] [employer] but no blood work for this . Patient signed a release of records form to obtain her records from [facility] [employer]. TKRN Nausea/vomiting in 02/20/2014 08/19/2014 Overview: 02/20/2014 Patient is complaining of nausea and vomiting in . She has been prescribed Zofran and Reglan. She states that it helps a little bit with the nausea and vomiting. Advised patient to call/come in if she is unable to keep any food or fluids down in a 24-hour period.TKRN Bacterial vaginal infection 02/03/2014 08/19/2014 Overview: February 03, 2014 Treated Minna Santoro MD with uncertain dates 10/23/2013 10/28/2013 Overview: 10/23/2013 Patient states she is unsure of the first day of her last menstrual period. Discussed with Dr. Cazares and she ordered an ultrasound. TKRN Heart murmur 10/23/2013 02/23/2014 Overview: 10/23/[address] Belcher when she was 20 days old and was given a referral for cardiac work-up. Mother stated previously that she never had this done because their family doctor said the murmur resolved and was due to pt's prematurity and group B Strep infection. TKRN February 23, 2014 no further eval for this at this time. Minna Santoro MD Asthma 02/23/2014 Overview: DIAGNOSED AT AGE 18 documented as of this encounter (statuses as of 06/13/2023) [facility] History of Past illness Narrative* Problem Noted Date Diagnosed Date Resolved Date Iron deficiency concern related to RLS 09/20/2016 01/30/2018 Supervision of high-risk 04/02/2015 08/31/2015 Overview: On subutex Group B streptococcal infect ion during 02/08/2015 09/03/2015 Overview: rx for amoxil on 02/08/15- JV Nausea/vomiting in 01/27/2015 09/03/2015 Threatened 12/23/2014 09/03/20 15 Subchorionic hematoma 12/23/20142014 Overview: Large 4.5 cm seen at 5-6 weeks Maternal drug use complicati ng , antepartum 06/01/2014 09/03/2015 Leukocytosis 05/29/2014 08/19/2014 Overview: 06/15/14 - attribute to pneumonia, repeat cbc once infection resolved - KJ Malaise 05/29/2014 08/19/2014 Pneumonia 05/29/2014 08/19/2014 History of labor 02/20/2014 Overview: 02/20/2014Patient states she has a history of labor with her second child. TKRN February 23, 2014 delivered at term with care elsewhere 02/20/2014 08/19/2014 Overview: Patient states that she did have an ultrasound done by [facility] [employer] but no blood work for this . Patient signed a release of records form to obtain her records from [facility] [employer]. TKRN Nausea/vomiting in 02/20/2014 08/19/2014 Overview: 02/20/2014 Patient is complaining of nausea and vomiting in . She has been prescribed Zofran and Reglan. She states that it helps a little bit with the nausea and vomiting. Advised patient to call/come in if she is unable to keep any food or fluids down in a 24-hour period.TKRN Bacterial vaginal infection 02/03/2014 08/19/2014 Overview: February 03, 2014 Treated Minan Santoro MD with uncertain dates 10/23/2013 10/28/2013 Overview: 10/23/2013 Patient states she is unsure of the first day of her last menstrual period. Discussed with Dr. Cazares and she ordered an ultrasound. TKRN Heart murmur 10/23/2013 02/23/2014 Overview: 10/23/[address] Belcher when she was 20 days old and was given a referral for cardiac work-up. Mother stated previously that she never had this done because their family doctor said the murmur resolved and was due to pt's prematurity and group B Strep infection. TKRN February 23, 2014 no further eval for this at this time. Minna Santoro MD Asthma 02/23/2014 Overview: DIAGNOSED AT AGE 18 documented as of this encounter (statuses as of 06/21/2023) [facility] History of Past illness Narrative* Problem Noted Date Diagnosed Date Resolved Date Iron deficiency concern related to RLS 09/20/2016 01/30/2018 Supervision of high-risk 04/02/2015 08/31/2015 Overview: On subutex Group B streptococcal infect ion during 02/08/2015 09/03/2015 Overview: rx for amoxil on 02/08/15- JV Nausea/vomiting in 01/27/2015 09/03/2015 Threatened 12/23/2014 09/03/20 15 Subchorionic hematoma 12/23/20142014 Overview: Large 4.5 cm seen at 5-6 weeks Maternal drug use complicati ng , antepartum 06/01/2014 09/03/2015 Leukocytosis 05/29/2014 08/19/2014 Overview: 06/15/14 - attribute to pneumonia, repeat cbc once infection resolved - KJ Malaise 05/29/2014 08/19/2014 Pneumonia 05/29/2014 08/19/2014 History of labor 02/20/2014 Overview: 02/20/2014Patient states she has a history of labor with her second child. TKRN February 23, 2014 delivered at term with care elsewhere 02/20/2014 08/19/2014 Overview: Patient states that she did have an ultrasound done by [facility] [employer] but no blood work for this . Patient signed a release of records form to obtain her records from [facility] [facility] [facility]. TKRN Nausea/vomiting in 02/20/2014 08/19/2014 Overview: 02/20/2014 Patient is complaining of nausea and vomiting in . She has been prescribed Zofran and Reglan. She states that it helps a little bit with the nausea and vomiting. Advised patient to call/come in if she is unable to keep any food or fluids down in a 24-hour period.TKRN Bacterial vaginal infection 02/03/2014 08/19/2014 Overview: February 03, 2014 Treated Minna Santoro MD with uncertain dates 10/23/2013 10/28/2013 Overview: 10/23/2013 Patient states she is unsure of the first day of her last menstrual period. Discussed with Dr. Cazares and she ordered an ultrasound. TKRN Heart murmur 10/23/2013 02/23/2014 Overview: 10/23/[address] Belcher when she was 20 days old and was given a referral for cardiac work-up. Mother stated previously that she never had this done because their family doctor said the murmur resolved and was due to pt's prematurity and group B Strep infection. TKRN February 23, 2014 no further eval for this at this time. Minna Santoro MD Asthma 02/23/2014 Overview: DIAGNOSED AT AGE 18 documented as of this encounter (statuses as of 06/26/2023) [facility] History of Past illness Narrative* Problem Noted Date Diagnosed Date Resolved Date Iron deficiency concern related to RLS 09/20/2016 01/30/2018 Supervision of high-risk 04/02/2015 08/31/2015 Overview: On subutex Group B streptococcal infect ion during 02/08/2015 09/03/2015 Overview: rx for amoxil on 02/08/15- JV Nausea/vomiting in 01/27/2015 09/03/2015 Threatened 12/23/2014 09/03/20 15 Subchorionic hematoma 12/23/20142014 Overview: Large 4.5 cm seen at 5-6 weeks Maternal drug use complicati ng , antepartum 06/01/2014 09/03/2015 Leukocytosis 05/29/2014 08/19/2014 Overview: 06/15/14 - attribute to pneumonia, repeat cbc once infection resolved - KJ Malaise 05/29/2014 08/19/2014 Pneumonia 05/29/2014 08/19/2014 History of labor 02/20/2014 Overview: 02/20/2014Patient states she has a history of labor with her second child. TKRN February 23, 2014 delivered at term with care elsewhere 02/20/2014 08/19/2014 Overview: Patient states that she did have an ultrasound done by [facility] [employer] but no blood work for this . Patient signed a release of records form to obtain her records from [facility] [facility]. TKRN Nausea/vomiting in 02/20/2014 08/19/2014 Overview: 02/20/2014 Patient is complaining of nausea and vomiting in . She has been prescribed Zofran and Reglan. She states that it helps a little bit with the nausea and vomiting. Advised patient to call/come in if she is unable to keep any food or fluids down in a 24-hour period.TKRN Bacterial vaginal infection 02/03/2014 08/19/2014 Overview: February 03, 2014 Treated Minna Santoro MD with uncertain dates 10/23/2013 10/28/2013 Overview: 10/23/2013 Patient states she is unsure of the first day of her last menstrual period. Discussed with Dr. Cazares and she ordered an ultrasound. TKRN Heart murmur 10/23/2013 02/23/2014 Overview: 10/23/[address] Belcher when she was 20 days old and was given a referral for cardiac work-up. Mother stated previously that she never had this done because their family doctor said the murmur resolved and was due to pt's prematurity and group B Strep infection. TKRN February 23, 2014 no further eval for this at this time. Minna Santoro MD Asthma 02/23/2014 Overview: DIAGNOSED AT AGE 18 documented as of this encounter (statuses as of 07/05/2023) [facility] History of Past illness Narrative* Problem Noted Date Diagnosed Date Resolved Date Iron deficiency concern related to RLS 09/20/2016 01/30/2018 Supervision of high-risk 04/02/2015 08/31/2015 Overview: On subutex Group B streptococcal infect ion during 02/08/2015 09/03/2015 Overview: rx for amoxil on 02/08/15- JV Nausea/vomiting in 01/27/2015 09/03/2015 Threatened 12/23/2014 09/03/20 15 Subchorionic hematoma 12/23/20142014 Overview: Large 4.5 cm seen at 5-6 weeks Maternal drug use complicati ng , antepartum 06/01/2014 09/03/2015 Leukocytosis 05/29/2014 08/19/2014 Overview: 06/15/14 - attribute to pneumonia, repeat cbc once infection resolved - KJ Malaise 05/29/2014 08/19/2014 Pneumonia 05/29/2014 08/19/2014 History of labor 02/20/2014 Overview: 02/20/2014Patient states she has a history of labor with her second child. TKRN February 23, 2014 delivered at term with care elsewhere 02/20/2014 08/19/2014 Overview: Patient states that she did have an ultrasound done by [facility] [employer] but no blood work for this . Patient signed a release of records form to obtain her records from [facility]. TKRN Nausea/vomiting in 02/20/2014 08/19/2014 Overview: 02/20/2014 Patient is complaining of nausea and vomiting in . She has been prescribed Zofran and Reglan. She states that it helps a little bit with the nausea and vomiting. Advised patient to call/come in if she is unable to keep any food or fluids down in a 24-hour period.TKRN Bacterial vaginal infection 02/03/2014 08/19/2014 Overview: February 03, 2014 Treated Minna Santoro MD with uncertain dates 10/23/2013 10/28/2013 Overview: 10/23/2013 Patient states she is unsure of the first day of her last menstrual period. Discussed with Dr. Cazares and she ordered an ultrasound. TKRN Heart murmur 10/23/2013 02/23/2014 Overview: 10/23/[address] Blecher when she was 20 days old and was given a referral for cardiac work-up. Mother stated previously that she never had this done because their family doctor said the murmur resolved and was due to pt's prematurity and group B Strep infection. TKRN February 23, 2014 no further eval for this at this time. Minna Santoro MD Asthma 02/23/2014 Overview: DIAGNOSED AT AGE 18 documented as of this encounter (statuses as of 07/14/2023) [facility] History of Past illness Narrative* Problem Noted Date Diagnosed Date Resolved Date Iron deficiency concern related to RLS 09/20/2016 01/30/2018 Supervision of high-risk 04/02/2015 08/31/2015 Overview: On subutex Group B streptococcal infect ion during 02/08/2015 09/03/2015 Overview: rx for amoxil on 02/08/15- JV Nausea/vomiting in 01/27/2015 09/03/2015 Threatened 12/23/2014 09/03/20 15 Subchorionic hematoma 12/23/20142014 Overview: Large 4.5 cm seen at 5-6 weeks Maternal drug use complicati ng , antepartum 06/01/2014 09/03/2015 Leukocytosis 05/29/2014 08/19/2014 Overview: 06/15/14 - attribute to pneumonia, repeat cbc once infection resolved - KJ Malaise 05/29/2014 08/19/2014 Pneumonia 05/29/2014 08/19/2014 History of labor 02/20/2014 Overview: 02/20/2014Patient states she has a history of labor with her second child. TKRN February 23, 2014 delivered at term with care elsewhere 02/20/2014 08/19/2014 Overview: Patient states that she did have an ultrasound done by [facility] [employer] but no blood work for this . Patient signed a release of records form to obtain her records from [facility]. TKRN Nausea/vomiting in 02/20/2014 08/19/2014 Overview: 02/20/2014 Patient is complaining of nausea and vomiting in . She has been prescribed Zofran and Reglan. She states that it helps a little bit with the nausea and vomiting. Advised patient to call/come in if she is unable to keep any food or fluids down in a 24-hour period.TKRN Bacterial vaginal infection 02/03/2014 08/19/2014 Overview: February 03, 2014 Treated Minna Santoro MD with uncertain dates 10/23/2013 10/28/2013 Overview: 10/23/2013 Patient states she is unsure of the first day of her last menstrual period. Discussed with Dr. Cazares and she ordered an ultrasound. TKRN Heart murmur 10/23/2013 02/23/2014 Overview: 10/23/[address] Belcher when she was 20 days old and was given a referral for cardiac work-up. Mother stated previously that she never had this done because their family doctor said the murmur resolved and was due to pt's prematurity and group B Strep infection. TKRN February 23, 2014 no further eval for this at this time. Minna Santoro MD Asthma 02/23/2014 Overview: DIAGNOSED AT AGE 18 documented as of this encounter (statuses as of 08/04/2023) [facility] History of Past illness Narrative* Problem Noted Date Diagnosed Date Resolved Date Iron deficiency concern related to RLS 09/20/2016 01/30/2018 Supervision of high-risk 04/02/2015 08/31/2015 Overview: On subutex Group B streptococcal infect ion during 02/08/2015 09/03/2015 Overview: rx for amoxil on 02/08/15- JV Nausea/vomiting in 01/27/2015 09/03/2015 Threatened 12/23/2014 09/03/20 15 Subchorionic hematoma 12/23/20142014 Overview: Large 4.5 cm seen at 5-6 weeks Maternal drug use complicati ng , antepartum 06/01/2014 09/03/2015 Leukocytosis 05/29/2014 08/19/2014 Overview: 06/15/14 - attribute to pneumonia, repeat cbc once infection resolved - KJ Malaise 05/29/2014 08/19/2014 Pneumonia 05/29/2014 08/19/2014 History of labor 02/20/2014 Overview: 02/20/2014Patient states she has a history of labor with her second child. TKRN February 23, 2014 delivered at term with care elsewhere 02/20/2014 08/19/2014 Overview: Patient states that she did have an ultrasound done by [facility] [employer] but no blood work for this . Patient signed a release of records form to obtain her records from [facility]. TKRN Nausea/vomiting in 02/20/2014 08/19/2014 Overview: 02/20/2014 Patient is complaining of nausea and vomiting in . She has been prescribed Zofran and Reglan. She states that it helps a little bit with the nausea and vomiting. Advised patient to call/come in if she is unable to keep any food or fluids down in a 24-hour period.TKRN Bacterial vaginal infection 02/03/2014 08/19/2014 Overview: February 03, 2014 Treated Minna Santoro MD with uncertain dates 10/23/2013 10/28/2013 Overview: 10/23/2013 Patient states she is unsure of the first day of her last menstrual period. Discussed with Dr. Cazares and she ordered an ultrasound. TKRN Heart murmur 10/23/2013 02/23/2014 Overview: 10/23/[address] Belcher when she was 20 days old and was given a referral for cardiac work-up. Mother stated previously that she never had this done because their family doctor said the murmur resolved and was due to pt's prematurity and group B Strep infection. TKRN February 23, 2014 no further eval for this at this time. Minna Santoro MD Asthma 02/23/2014 Overview: DIAGNOSED AT AGE 18 documented as of this encounter (statuses as of 08/10/2023) [facility] History of Past illness Narrative* Problem Noted Date Diagnosed Date Resolved Date Iron deficiency concern related to RLS 09/20/2016 01/30/2018 Supervision of high-risk 04/02/2015 08/31/2015 Overview: On subutex Group B streptococcal infect ion during 02/08/2015 09/03/2015 Overview: rx for amoxil on 02/08/15- JV Nausea/vomiting in 01/27/2015 09/03/2015 Threatened 12/23/2014 09/03/20 15 Subchorionic hematoma 12/23/20142014 Overview: Large 4.5 cm seen at 5-6 weeks Maternal drug use complicati ng , antepartum 06/01/2014 09/03/2015 Leukocytosis 05/29/2014 08/19/2014 Overview: 06/15/14 - attribute to pneumonia, repeat cbc once infection resolved - KJ Malaise 05/29/2014 08/19/2014 Pneumonia 05/29/2014 08/19/2014 History of labor 02/20/2014 Overview: 02/20/2014Patient states she has a history of labor with her second child. TKRN February 23, 2014 delivered at term with care elsewhere 02/20/2014 08/19/2014 Overview: Patient states that she did have an ultrasound done by [facility] [employer] but no blood work for this . Patient signed a release of records form to obtain her records from [facility]. TKRN Nausea/vomiting in 02/20/2014 08/19/2014 Overview: 02/20/2014 Patient is complaining of nausea and vomiting in . She has been prescribed Zofran and Reglan. She states that it helps a little bit with the nausea and vomiting. Advised patient to call/come in if she is unable to keep any food or fluids down in a 24-hour period.TKRN Bacterial vaginal infection 02/03/2014 08/19/2014 Overview: February 03, 2014 Treated Minna Santoro MD with uncertain dates 10/23/2013 10/28/2013 Overview: 10/23/2013 Patient states she is unsure of the first day of her last menstrual period. Discussed with Dr. Cazares and she ordered an ultrasound. TKRN Heart murmur 10/23/2013 02/23/2014 Overview: 10/23/[address] Belcher when she was 20 days old and was given a referral for cardiac work-up. Mother stated previously that she never had this done because their family doctor said the murmur resolved and was due to pt's prematurity and group B Strep infection. TKRN February 23, 2014 no further eval for this at this time. Minna Santoro MD Asthma 02/23/2014 Overview: DIAGNOSED AT AGE 18 documented as of this encounter (statuses as of 08/27/2023) [facility] History of Past illness Narrative* Problem Noted Date Diagnosed Date Resolved Date Iron deficiency concern related to RLS 09/20/2016 01/30/2018 Supervision of high-risk 04/02/2015 08/31/2015 Overview: On subutex Group B streptococcal infect ion during 02/08/2015 09/03/2015 Overview: rx for amoxil on 02/08/15- JV Nausea/vomiting in 01/27/2015 09/03/2015 Threatened 12/23/2014 09/03/20 15 Subchorionic hematoma 12/23/20142014 Overview: Large 4.5 cm seen at 5-6 weeks Maternal drug use complicati ng , antepartum 06/01/2014 09/03/2015 Leukocytosis 05/29/2014 08/19/2014 Overview: 06/15/14 - attribute to pneumonia, repeat cbc once infection resolved - KJ Malaise 05/29/2014 08/19/2014 Pneumonia 05/29/2014 08/19/2014 History of labor 02/20/2014 Overview: 02/20/2014Patient states she has a history of labor with her second child. EFRARHeidi February 23, 2014 delivered at term with care elsewhere 02/20/2014 08/19/2014 Overview: Patient states that she did have an ultrasound done by [facility] [employer] but no blood work for this . Patient signed a release of records form to obtain her records from [facility] [employer]. TKRN Nausea/vomiting in 02/20/2014 08/19/2014 Overview: 02/20/2014 Patient is complaining of nausea and vomiting in . She has been prescribed Zofran and Reglan. She states that it helps a little bit with the nausea and vomiting. Advised patient to call/come in if she is unable to keep any food or fluids down in a 24-hour period.TKRN Bacterial vaginal infection 02/03/2014 08/19/2014 Overview: February 03, 2014 Treated Minna Santoro MD with uncertain dates 10/23/2013 10/28/2013 Overview: 10/23/2013 Patient states she is unsure of the first day of her last menstrual period. Discussed with Dr. Cazares and she ordered an ultrasound. TKRN Heart murmur 10/23/2013 02/23/2014 Overview: 10/23/[address] Belcher when she was 20 days old and was given a referral for cardiac work-up. Mother stated previously that she never had this done because their family doctor said the murmur resolved and was due to pt's prematurity and group B Strep infection. TKRN February 23, 2014 no further eval for this at this time. Minna Santoro MD Asthma 02/23/2014 Overview: DIAGNOSED AT AGE 18 documented as of this encounter (statuses as of 09/02/2023) [facility] History of Past illness Narrative* Problem Noted Date Diagnosed Date Resolved Date Iron deficiency concern related to RLS 09/20/2016 01/30/2018 Supervision of high-risk 04/02/2015 08/31/2015 Overview: On subutex Group B streptococcal infect ion during 02/08/2015 09/03/2015 Overview: rx for amoxil on 02/08/15- JV Nausea/vomiting in 01/27/2015 09/03/2015 Threatened 12/23/2014 09/03/20 15 Subchorionic hematoma 12/23/20142014 Overview: Large 4.5 cm seen at 5-6 weeks Maternal drug use complicati ng , antepartum 06/01/2014 09/03/2015 Leukocytosis 05/29/2014 08/19/2014 Overview: 06/15/14 - attribute to pneumonia, repeat cbc once infection resolved - KJ Malaise 05/29/2014 08/19/2014 Pneumonia 05/29/2014 08/19/2014 History of labor 02/20/2014 Overview: 02/20/2014Patient states she has a history of labor with her second child. TKRN February 23, 2014 delivered at term with care elsewhere 02/20/2014 08/19/2014 Overview: Patient states that she did have an ultrasound done by [facility] [employer] but no blood work for this . Patient signed a release of records form to obtain her records from [facility] [employer]. TKRN Nausea/vomiting in 02/20/2014 08/19/2014 Overview: 02/20/2014 Patient is complaining of nausea and vomiting in . She has been prescribed Zofran and Reglan. She states that it helps a little bit with the nausea and vomiting. Advised patient to call/come in if she is unable to keep any food or fluids down in a 24-hour period.TKRN Bacterial vaginal infection 02/03/2014 08/19/2014 Overview: February 03, 2014 Treated Minna Santoro MD with uncertain dates 10/23/2013 10/28/2013 Overview: 10/23/2013 Patient states she is unsure of the first day of her last menstrual period. Discussed with Dr. Cazares and she ordered an ultrasound. TKRN Heart murmur 10/23/2013 02/23/2014 Overview: 10/23/[address] Belcher when she was 20 days old and was given a referral for cardiac work-up. Mother stated previously that she never had this done because their family doctor said the murmur resolved and was due to pt's prematurity and group B Strep infection. TKRN February 23, 2014 no further eval for this at this time. Minna Santoro MD Asthma 02/23/2014 Overview: DIAGNOSED AT AGE 18 documented as of this encounter (statuses as of 09/02/2023) [facility] History of Past illness Narrative* Problem Noted Date Diagnosed Date Resolved Date Iron deficiency concern related to RLS 09/20/2016 01/30/2018 Supervision of high-risk 04/02/2015 08/31/2015 Overview: On subutex Group B streptococcal infect ion during 02/08/2015 09/03/2015 Overview: rx for amoxil on 02/08/15- JV Nausea/vomiting in 01/27/2015 09/03/2015 Threatened 12/23/2014 09/03/20 15 Subchorionic hematoma 12/23/20142014 Overview: Large 4.5 cm seen at 5-6 weeks Maternal drug use complicati ng , antepartum 06/01/2014 09/03/2015 Leukocytosis 05/29/2014 08/19/2014 Overview: 06/15/14 - attribute to pneumonia, repeat cbc once infection resolved - KJ Malaise 05/29/2014 08/19/2014 Pneumonia 05/29/2014 08/19/2014 History of labor 02/20/2014 Overview: 02/20/2014Patient states she has a history of labor with her second child. TKRN February 23, 2014 delivered at term with care elsewhere 02/20/2014 08/19/2014 Overview: Patient states that she did have an ultrasound done by [facility] [employer] but no blood work for this . Patient signed a release of records form to obtain her records from [facility]. TKRN Nausea/vomiting in 02/20/2014 08/19/2014 Overview: 02/20/2014 Patient is complaining of nausea and vomiting in . She has been prescribed Zofran and Reglan. She states that it helps a little bit with the nausea and vomiting. Advised patient to call/come in if she is unable to keep any food or fluids down in a 24-hour period.TKRN Bacterial vaginal infection 02/03/2014 08/19/2014 Overview: February 03, 2014 Treated Minna Santoro MD with uncertain dates 10/23/2013 10/28/2013 Overview: 10/23/2013 Patient states she is unsure of the first day of her last menstrual period. Discussed with Dr. Cazares and she ordered an ultrasound. TKRN Heart murmur 10/23/2013 02/23/2014 Overview: 10/23/[address] Belcher when she was 20 days old and was given a referral for cardiac work-up. Mother stated previously that she never had this done because their family doctor said the murmur resolved and was due to pt's prematurity and group B Strep infection. TKRN February 23, 2014 no further eval for this at this time. Minna Santoro MD Asthma 02/23/2014 Overview: DIAGNOSED AT AGE 18 documented as of this encounter (statuses as of 09/02/2023) [facility] History of Past illness Narrative* Problem Noted Date Diagnosed Date Resolved Date Iron deficiency concern related to RLS 09/20/2016 01/30/2018 Supervision of high-risk 04/02/2015 08/31/2015 Overview: On subutex Group B streptococcal infect ion during 02/08/2015 09/03/2015 Overview: rx for amoxil on 02/08/15- JV Nausea/vomiting in 01/27/2015 09/03/2015 Threatened 12/23/2014 09/03/20 15 Subchorionic hematoma 12/23/20142014 Overview: Large 4.5 cm seen at 5-6 weeks Maternal drug use complicati ng , antepartum 06/01/2014 09/03/2015 Leukocytosis 05/29/2014 08/19/2014 Overview: 06/15/14 - attribute to pneumonia, repeat cbc once infection resolved - KJ Malaise 05/29/2014 08/19/2014 Pneumonia 05/29/2014 08/19/2014 History of labor 02/20/2014 Overview: 02/20/2014Patient states she has a history of labor with her second child. TKRN February 23, 2014 delivered at term with care elsewhere 02/20/2014 08/19/2014 Overview: Patient states that she did have an ultrasound done by [facility] [employer] but no blood work for this . Patient signed a release of records form to obtain her records from [facility] [employer]. TKRN Nausea/vomiting in 02/20/2014 08/19/2014 Overview: 02/20/2014 Patient is complaining of nausea and vomiting in . She has been prescribed Zofran and Reglan. She states that it helps a little bit with the nausea and vomiting. Advised patient to call/come in if she is unable to keep any food or fluids down in a 24-hour period.TKRN Bacterial vaginal infection 02/03/2014 08/19/2014 Overview: February 03, 2014 Treated Minna Santoro MD with uncertain dates 10/23/2013 10/28/2013 Overview: 10/23/2013 Patient states she is unsure of the first day of her last menstrual period. Discussed with Dr. Cazares and she ordered an ultrasound. TKRN Heart murmur 10/23/2013 02/23/2014 Overview: 10/23/[address] Belcher when she was 20 days old and was given a referral for cardiac work-up. Mother stated previously that she never had this done because their family doctor said the murmur resolved and was due to pt's prematurity and group B Strep infection. TKRN February 23, 2014 no further eval for this at this time. Minna Santoro MD Asthma 02/23/2014 Overview: DIAGNOSED AT AGE 18 documented as of this encounter (statuses as of 11/29/2023) [facility] History of Past illness Narrative* Problem Noted Date Diagnosed Date Resolved Date Iron deficiency concern related to RLS 09/20/2016 01/30/2018 Supervision of high-risk 04/02/2015 08/31/2015 Overview: On subutex Group B streptococcal infect ion during 02/08/2015 09/03/2015 Overview: rx for amoxil on 02/08/15- JV Nausea/vomiting in 01/27/2015 09/03/2015 Threatened 12/23/2014 09/03/20 15 Subchorionic hematoma 12/23/20142014 Overview: Large 4.5 cm seen at 5-6 weeks Maternal drug use complicati ng , antepartum 06/01/2014 09/03/2015 Leukocytosis 05/29/2014 08/19/2014 Overview: 06/15/14 - attribute to pneumonia, repeat cbc once infection resolved - KJ Malaise 05/29/2014 08/19/2014 Pneumonia 05/29/2014 08/19/2014 History of labor 02/20/2014 Overview: 02/20/2014Patient states she has a history of labor with her second child. TKRN February 23, 2014 delivered at term with care elsewhere 02/20/2014 08/19/2014 Overview: Patient states that she did have an ultrasound done by [facility] [employer] but no blood work for this . Patient signed a release of records form to obtain her records from [facility] [facility] [facility]. TKRN Nausea/vomiting in 02/20/2014 08/19/2014 Overview: 02/20/2014 Patient is complaining of nausea and vomiting in . She has been prescribed Zofran and Reglan. She states that it helps a little bit with the nausea and vomiting. Advised patient to call/come in if she is unable to keep any food or fluids down in a 24-hour period.TKRN Bacterial vaginal infection 02/03/2014 08/19/2014 Overview: February 03, 2014 Treated Mnina Santoro MD with uncertain dates 10/23/2013 10/28/2013 Overview: 10/23/2013 Patient states she is unsure of the first day of her last menstrual period. Discussed with Dr. Cazares and she ordered an ultrasound. TKRN Heart murmur 10/23/2013 02/23/2014 Overview: 10/23/[address] Belcher when she was 20 days old and was given a referral for cardiac work-up. Mother stated previously that she never had this done because their family doctor said the murmur resolved and was due to pt's prematurity and group B Strep infection. TKRN February 23, 2014 no further eval for this at this time. Minna Santoro MD Asthma 02/23/2014 Overview: DIAGNOSED AT AGE 18 documented as of this encounter (statuses as of 12/11/2023) [facility] History of Past illness Narrative* Problem Noted Date Diagnosed Date Resolved Date Iron deficiency concern related to RLS 09/20/2016 01/30/2018 Supervision of high-risk 04/02/2015 08/31/2015 Overview: On subutex Group B streptococcal infect ion during 02/08/2015 09/03/2015 Overview: rx for amoxil on 02/08/15- JV Nausea/vomiting in 01/27/2015 09/03/2015 Threatened 12/23/2014 09/03/20 15 Subchorionic hematoma 12/23/20142014 Overview: Large 4.5 cm seen at 5-6 weeks Maternal drug use complicati ng , antepartum 06/01/2014 09/03/2015 Leukocytosis 05/29/2014 08/19/2014 Overview: 06/15/14 - attribute to pneumonia, repeat cbc once infection resolved - KJ Malaise 05/29/2014 08/19/2014 Pneumonia 05/29/2014 08/19/2014 History of labor 02/20/2014 Overview: 02/20/2014Patient states she has a history of labor with her second child. TKRN February 23, 2014 delivered at term with care elsewhere 02/20/2014 08/19/2014 Overview: Patient states that she did have an ultrasound done by [facility] [employer] but no blood work for this . Patient signed a release of records form to obtain her records from [facility]. TKRN Nausea/vomiting in 02/20/2014 08/19/2014 Overview: 02/20/2014 Patient is complaining of nausea and vomiting in . She has been prescribed Zofran and Reglan. She states that it helps a little bit with the nausea and vomiting. Advised patient to call/come in if she is unable to keep any food or fluids down in a 24-hour period.TKRN Bacterial vaginal infection 02/03/2014 08/19/2014 Overview: February 03, 2014 Treated Minna Santoro MD with uncertain dates 10/23/2013 10/28/2013 Overview: 10/23/2013 Patient states she is unsure of the first day of her last menstrual period. Discussed with Dr. Cazares and she ordered an ultrasound. TKRN Heart murmur 10/23/2013 02/23/2014 Overview: 10/23/[address] Belcher when she was 20 days old and was given a referral for cardiac work-up. Mother stated previously that she never had this done because their family doctor said the murmur resolved and was due to pt's prematurity and group B Strep infection. TKRN February 23, 2014 no further eval for this at this time. Minna Santoro MD Asthma 02/23/2014 Overview: DIAGNOSED AT AGE 18 documented as of this encounter (statuses as of 12/14/2023) [facility] History of Past illness Narrative* Problem Noted Date Diagnosed Date Resolved Date Iron deficiency concern related to RLS 09/20/2016 01/30/2018 Supervision of high-risk 04/02/2015 08/31/2015 Overview: On subutex Group B streptococcal infect ion during 02/08/2015 09/03/2015 Overview: rx for amoxil on 02/08/15- JV Nausea/vomiting in 01/27/2015 09/03/2015 Threatened 12/23/2014 09/03/20 15 Subchorionic hematoma 12/23/20142014 Overview: Large 4.5 cm seen at 5-6 weeks Maternal drug use complicati ng , antepartum 06/01/2014 09/03/2015 Leukocytosis 05/29/2014 08/19/2014 Overview: 06/15/14 - attribute to pneumonia, repeat cbc once infection resolved - KJ Malaise 05/29/2014 08/19/2014 Pneumonia 05/29/2014 08/19/2014 History of labor 02/20/2014 Overview: 02/20/2014Patient states she has a history of labor with her second child. TKRN February 23, 2014 delivered at term with care elsewhere 02/20/2014 08/19/2014 Overview: Patient states that she did have an ultrasound done by [facility] [employer] but no blood work for this . Patient signed a release of records form to obtain her records from [facility]. TKRN Nausea/vomiting in 02/20/2014 08/19/2014 Overview: 02/20/2014 Patient is complaining of nausea and vomiting in . She has been prescribed Zofran and Reglan. She states that it helps a little bit with the nausea and vomiting. Advised patient to call/come in if she is unable to keep any food or fluids down in a 24-hour period.TKRN Bacterial vaginal infection 02/03/2014 08/19/2014 Overview: February 03, 2014 Treated Minna Santoro MD with uncertain dates 10/23/2013 10/28/2013 Overview: 10/23/2013 Patient states she is unsure of the first day of her last menstrual period. Discussed with Dr. Cazares and she ordered an ultrasound. TKRN Heart murmur 10/23/2013 02/23/2014 Overview: 10/23/[address] Belcher when she was 20 days old and was given a referral for cardiac work-up. Mother stated previously that she never had this done because their family doctor said the murmur resolved and was due to pt's prematurity and group B Strep infection. TKRN February 23, 2014 no further eval for this at this time. Minna Santoro MD Asthma 02/23/2014 Overview: DIAGNOSED AT AGE 18 documented as of this encounter (statuses as of 12/21/2023) [facility] History of Past illness Narrative* Problem Noted Date Diagnosed Date Resolved Date Iron deficiency concern related to RLS 09/20/2016 01/30/2018 Supervision of high-risk 04/02/2015 08/31/2015 Overview: On subutex Group B streptococcal infect ion during 02/08/2015 09/03/2015 Overview: rx for amoxil on 02/08/15- JV Nausea/vomiting in 01/27/2015 09/03/2015 Threatened 12/23/2014 09/03/20 15 Subchorionic hematoma 12/23/20142014 Overview: Large 4.5 cm seen at 5-6 weeks Maternal drug use complicati ng , antepartum 06/01/2014 09/03/2015 Leukocytosis 05/29/2014 08/19/2014 Overview: 06/15/14 - attribute to pneumonia, repeat cbc once infection resolved - KJ Malaise 05/29/2014 08/19/2014 Pneumonia 05/29/2014 08/19/2014 History of labor 02/20/2014 Overview: 02/20/2014Patient states she has a history of labor with her second child. TKRN February 23, 2014 delivered at term with care elsewhere 02/20/2014 08/19/2014 Overview: Patient states that she did have an ultrasound done by [facility] [employer] but no blood work for this . Patient signed a release of records form to obtain her records from [facility]. TKRN Nausea/vomiting in 02/20/2014 08/19/2014 Overview: 02/20/2014 Patient is complaining of nausea and vomiting in . She has been prescribed Zofran and Reglan. She states that it helps a little bit with the nausea and vomiting. Advised patient to call/come in if she is unable to keep any food or fluids down in a 24-hour period.TKRN Bacterial vaginal infection 02/03/2014 08/19/2014 Overview: February 03, 2014 Treated Minna Santoro MD with uncertain dates 10/23/2013 10/28/2013 Overview: 10/23/2013 Patient states she is unsure of the first day of her last menstrual period. Discussed with Dr. Cazares and she ordered an ultrasound. TKRN Heart murmur 10/23/2013 02/23/2014 Overview: 10/23/[address] Belcher when she was 20 days old and was given a referral for cardiac work-up. Mother stated previously that she never had this done because their family doctor said the murmur resolved and was due to pt's prematurity and group B Strep infection. TKRN February 23, 2014 no further eval for this at this time. Minna Santoro MD Asthma 02/23/2014 Overview: DIAGNOSED AT AGE 18 documented as of this encounter (statuses as of 01/03/2024) [facility] History of Past illness Narrative* Problem Noted Date Diagnosed Date Resolved Date Iron deficiency concern related to RLS 09/20/2016 01/30/2018 Supervision of high-risk 04/02/2015 08/31/2015 Overview: On subutex Group B streptococcal infect ion during 02/08/2015 09/03/2015 Overview: rx for amoxil on 02/08/15- JV Nausea/vomiting in 01/27/2015 09/03/2015 Threatened 12/23/2014 09/03/20 15 Subchorionic hematoma 12/23/20142014 Overview: Large 4.5 cm seen at 5-6 weeks Maternal drug use complicati ng , antepartum 06/01/2014 09/03/2015 Leukocytosis 05/29/2014 08/19/2014 Overview: 06/15/14 - attribute to pneumonia, repeat cbc once infection resolved - KJ Malaise 05/29/2014 08/19/2014 Pneumonia 05/29/2014 08/19/2014 History of labor 02/20/2014 Overview: 02/20/2014Patient states she has a history of labor with her second child. TKRN February 23, 2014 delivered at term with care elsewhere 02/20/2014 08/19/2014 Overview: Patient states that she did have an ultrasound done by [facility] [employer] but no blood work for this . Patient signed a release of records form to obtain her records from [facility]. TKRN Nausea/vomiting in 02/20/2014 08/19/2014 Overview: 02/20/2014 Patient is complaining of nausea and vomiting in . She has been prescribed Zofran and Reglan. She states that it helps a little bit with the nausea and vomiting. Advised patient to call/come in if she is unable to keep any food or fluids down in a 24-hour period.TKRN Bacterial vaginal infection 02/03/2014 08/19/2014 Overview: February 03, 2014 Treated Minna Santoro MD with uncertain dates 10/23/2013 10/28/2013 Overview: 10/23/2013 Patient states she is unsure of the first day of her last menstrual period. Discussed with Dr. Cazares and she ordered an ultrasound. TKRN Heart murmur 10/23/2013 02/23/2014 Overview: 10/23/[address] Belcher when she was 20 days old and was given a referral for cardiac work-up. Mother stated previously that she never had this done because their family doctor said the murmur resolved and was due to pt's prematurity and group B Strep infection. TKRN February 23, 2014 no further eval for this at this time. Minna Santoro MD Asthma 02/23/2014 Overview: DIAGNOSED AT AGE 18 documented as of this encounter (statuses as of 01/09/2024) [facility] History of Past illness Narrative* Problem Noted Date Diagnosed Date Resolved Date Iron deficiency concern related to RLS 09/20/2016 01/30/2018 Supervision of high-risk 04/02/2015 08/31/2015 Overview: On subutex Group B streptococcal infect ion during 02/08/2015 09/03/2015 Overview: rx for amoxil on 02/08/15- JV Nausea/vomiting in 01/27/2015 09/03/2015 Threatened 12/23/2014 09/03/20 15 Subchorionic hematoma 12/23/20142014 Overview: Large 4.5 cm seen at 5-6 weeks Maternal drug use complicati ng , antepartum 06/01/2014 09/03/2015 Leukocytosis 05/29/2014 08/19/2014 Overview: 06/15/14 - attribute to pneumonia, repeat cbc once infection resolved - KJ Malaise 05/29/2014 08/19/2014 Pneumonia 05/29/2014 08/19/2014 History of labor 02/20/2014 Overview: 02/20/2014Patient states she has a history of labor with her second child. TKRN February 23, 2014 delivered at term with care elsewhere 02/20/2014 08/19/2014 Overview: Patient states that she did have an ultrasound done by [facility] [employer] but no blood work for this . Patient signed a release of records form to obtain her records from [facility] [employer]. TKRN Nausea/vomiting in 02/20/2014 08/19/2014 Overview: 02/20/2014 Patient is complaining of nausea and vomiting in . She has been prescribed Zofran and Reglan. She states that it helps a little bit with the nausea and vomiting. Advised patient to call/come in if she is unable to keep any food or fluids down in a 24-hour period.TKRN Bacterial vaginal infection 02/03/2014 08/19/2014 Overview: February 03, 2014 Treated Minna Santoro MD with uncertain dates 10/23/2013 10/28/2013 Overview: 10/23/2013 Patient states she is unsure of the first day of her last menstrual period. Discussed with Dr. Cazares and she ordered an ultrasound. TKRN Heart murmur 10/23/2013 02/23/2014 Overview: 10/23/[address] Belcher when she was 20 days old and was given a referral for cardiac work-up. Mother stated previously that she never had this done because their family doctor said the murmur resolved and was due to pt's prematurity and group B Strep infection. TKRN February 23, 2014 no further eval for this at this time. Minna Santoro MD Asthma 02/23/2014 Overview: DIAGNOSED AT AGE 18 documented as of this encounter (statuses as of 01/09/2024) [facility] History of Past illness Narrative* Problem Noted Date Diagnosed Date Resolved Date Iron deficiency concern related to RLS 09/20/2016 01/30/2018 Supervision of high-risk 04/02/2015 08/31/2015 Overview: On subutex Group B streptococcal infect ion during 02/08/2015 09/03/2015 Overview: rx for amoxil on 02/08/15- JV Nausea/vomiting in 01/27/2015 09/03/2015 Threatened 12/23/2014 09/03/20 15 Subchorionic hematoma 12/23/20142014 Overview: Large 4.5 cm seen at 5-6 weeks Maternal drug use complicati ng , antepartum 06/01/2014 09/03/2015 Leukocytosis 05/29/2014 08/19/2014 Overview: 06/15/14 - attribute to pneumonia, repeat cbc once infection resolved - KJ Malaise 05/29/2014 08/19/2014 Pneumonia 05/29/2014 08/19/2014 History of labor 02/20/2014 Overview: 02/20/2014Patient states she has a history of labor with her second child. TKRN February 23, 2014 delivered at term with care elsewhere 02/20/2014 08/19/2014 Overview: Patient states that she did have an ultrasound done by [facility] [employer] but no blood work for this . Patient signed a release of records form to obtain her records from [facility] [employer]. TKRN Nausea/vomiting in 02/20/2014 08/19/2014 Overview: 02/20/2014 Patient is complaining of nausea and vomiting in . She has been prescribed Zofran and Reglan. She states that it helps a little bit with the nausea and vomiting. Advised patient to call/come in if she is unable to keep any food or fluids down in a 24-hour period.TKRN Bacterial vaginal infection 02/03/2014 08/19/2014 Overview: February 03, 2014 Treated Minna Santoro MD with uncertain dates 10/23/2013 10/28/2013 Overview: 10/23/2013 Patient states she is unsure of the first day of her last menstrual period. Discussed with Dr. Cazares and she ordered an ultrasound. TKRN Heart murmur 10/23/2013 02/23/2014 Overview: 10/23/[address] Belcher when she was 20 days old and was given a referral for cardiac work-up. Mother stated previously that she never had this done because their family doctor said the murmur resolved and was due to pt's prematurity and group B Strep infection. TKRN February 23, 2014 no further eval for this at this time. Minna Santoro MD Asthma 02/23/2014 Overview: DIAGNOSED AT AGE 18 documented as of this encounter (statuses as of 01/10/2024) [facility] History of Past illness Narrative* Problem Noted Date Diagnosed Date Resolved Date Iron deficiency concern related to RLS 09/20/2016 01/30/2018 Supervision of high-risk 04/02/2015 08/31/2015 Overview: On subutex Group B streptococcal infect ion during 02/08/2015 09/03/2015 Overview: rx for amoxil on 02/08/15- JV Nausea/vomiting in 01/27/2015 09/03/2015 Threatened 12/23/2014 09/03/20 15 Subchorionic hematoma 12/23/20142014 Overview: Large 4.5 cm seen at 5-6 weeks Maternal drug use complicati ng , antepartum 06/01/2014 09/03/2015 Leukocytosis 05/29/2014 08/19/2014 Overview: 06/15/14 - attribute to pneumonia, repeat cbc once infection resolved - KJ Malaise 05/29/2014 08/19/2014 Pneumonia 05/29/2014 08/19/2014 History of labor 02/20/2014 Overview: 02/20/2014Patient states she has a history of labor with her second child. TKRN February 23, 2014 delivered at term with care elsewhere 02/20/2014 08/19/2014 Overview: Patient states that she did have an ultrasound done by [facility] [employer] but no blood work for this . Patient signed a release of records form to obtain her records from [facility] [employer]. TKRN Nausea/vomiting in 02/20/2014 08/19/2014 Overview: 02/20/2014 Patient is complaining of nausea and vomiting in . She has been prescribed Zofran and Reglan. She states that it helps a little bit with the nausea and vomiting. Advised patient to call/come in if she is unable to keep any food or fluids down in a 24-hour period.TKRN Bacterial vaginal infection 02/03/2014 08/19/2014 Overview: February 03, 2014 Treated Minna Santoro MD with uncertain dates 10/23/2013 10/28/2013 Overview: 10/23/2013 Patient states she is unsure of the first day of her last menstrual period. Discussed with Dr. Cazares and she ordered an ultrasound. TKRN Heart murmur 10/23/2013 02/23/2014 Overview: 10/23/[address] Belcher when she was 20 days old and was given a referral for cardiac work-up. Mother stated previously that she never had this done because their family doctor said the murmur resolved and was due to pt's prematurity and group B Strep infection. TKRN February 23, 2014 no further eval for this at this time. Minna Santoro MD Asthma 02/23/2014 Overview: DIAGNOSED AT AGE 18 documented as of this encounter (statuses as of 01/14/2024) [facility] History of Past illness Narrative* Problem Noted Date Diagnosed Date Resolved Date Iron deficiency concern related to RLS 09/20/2016 01/30/2018 Supervision of high-risk 04/02/2015 08/31/2015 Overview: On subutex Group B streptococcal infect ion during 02/08/2015 09/03/2015 Overview: rx for amoxil on 02/08/15- JV Nausea/vomiting in 01/27/2015 09/03/2015 Threatened 12/23/2014 09/03/20 15 Subchorionic hematoma 12/23/20142014 Overview: Large 4.5 cm seen at 5-6 weeks Maternal drug use complicati ng , antepartum 06/01/2014 09/03/2015 Leukocytosis 05/29/2014 08/19/2014 Overview: 06/15/14 - attribute to pneumonia, repeat cbc once infection resolved - KJ Malaise 05/29/2014 08/19/2014 Pneumonia 05/29/2014 08/19/2014 History of labor 02/20/2014 Overview: 02/20/2014Patient states she has a history of labor with her second child. TKRN February 23, 2014 delivered at term with care elsewhere 02/20/2014 08/19/2014 Overview: Patient states that she did have an ultrasound done by [facility] [employer] but no blood work for this . Patient signed a release of records form to obtain her records from [facility] [employer]. TKRN Nausea/vomiting in 02/20/2014 08/19/2014 Overview: 02/20/2014 Patient is complaining of nausea and vomiting in . She has been prescribed Zofran and Reglan. She states that it helps a little bit with the nausea and vomiting. Advised patient to call/come in if she is unable to keep any food or fluids down in a 24-hour period.TKRN Bacterial vaginal infection 02/03/2014 08/19/2014 Overview: February 03, 2014 Treated Minna Santoro MD with uncertain dates 10/23/2013 10/28/2013 Overview: 10/23/2013 Patient states she is unsure of the first day of her last menstrual period. Discussed with Dr. Cazares and she ordered an ultrasound. TKRN Heart murmur 10/23/2013 02/23/2014 Overview: 10/23/[address] Belcher when she was 20 days old and was given a referral for cardiac work-up. Mother stated previously that she never had this done because their family doctor said the murmur resolved and was due to pt's prematurity and group B Strep infection. TKRN February 23, 2014 no further eval for this at this time. Minna Santoro MD Asthma 02/23/2014 Overview: DIAGNOSED AT AGE 18 documented as of this encounter (statuses as of 01/19/2024) [facility] No data available for this section [facility] Evaluation note* Diagnosis EARLENE (obstructive sleep apnea)- Primary Obstructive sleep apnea (adult) (pediatric) [facility] Diagnosis EARLENE (obstructive sleep apnea)- Primary Obstructive sleep apnea (adult) (pediatric) Excessive daytime sleepiness Fatigue, unspecified type Fibromyalgia Mylagia and myositis, unspecified RLS (restless legs syndrome) Restless legs syndrome (RLS) Deficiency anemia Unspecified deficiency anemia Nightmares associated with chronic post-traumatic stress disorder Other dysfunctions of sleep stages or arousal from sleep Insomnia, unspecified type [facility] Diagnosis EARLENE (obstructive sleep apnea)- Primary Obstructive sleep apnea (adult) (pediatric) RLS (restless legs syndrome) Restless legs syndrome (RLS) Fibromyalgia Mylagia and myositis, unspecified Neuropathy Mononeuritis of unspecified site [facility] Diagnosis EARLENE (obstructive sleep apnea)- Primary Obstructive sleep apnea (adult) (pediatric) RLS (restless legs syndrome) Restless legs syndrome (RLS) Chronic insomnia Insomnia, unspecified Excessive daytime sleepiness Fibromyalgia Mylagia and myositis, unspecified Gastroesophageal reflux disease with esophagitis without hemorrhage Chronic bilateral low back pain without sciatica Deficiency anemia Unspecified deficiency anemia Neuropathy Mononeuritis of unspecified site Nightmares associated with chronic post-traumatic stress disorder Other dysfunctions of sleep stages or arousal from sleep History of seizures Personal history of other disorders of nervous system and sense organs [facility] Diagnosis Sore throat- Primary Acute pharyngitis Close exposure to COVID-19 virus [facility] Diagnosis Obstructive sleep apnea- Primary Obstructive sleep apnea (adult) (pediatric) RLS (restless legs syndrome) Restless legs syndrome (RLS) Chronic insomnia Insomnia, unspecified [facility] Diagnosis Sinobronchitis- Primary Unspecified sinusitis (chronic) Acute otitis media, left Unspecified otitis media [facility] Diagnosis Acute otitis media, left- Primary Unspecified otitis media [facility]* Diagnosis Well adult exam- Primary Routine general medical examination at a health care facility History of heroin abuse (HCC) Opioid abuse, in remission Drug abuse (HCC) Other, mixed, or unspecified nondependent drug abuse, unspecified Bipolar affective disorder, remission status unspecified ([facility]) PTSD (post-traumatic stress disorder) Posttraumatic stress disorder Depression, unspecified depression type Gastroesophageal reflux disease with esophagitis without hemorrhage EARLENE (obstructive sleep apnea) Obstructive sleep apnea (adult) (pediatric) Mild intermittent extrinsic asthma without complication Hyperlipidemia, mixed Mixed hyperlipidemia RLS (restless legs syndrome) Restless legs syndrome (RLS) Fibromyalgia Mylagia and myositis, unspecified Low vitamin B12 level Other B-complex deficiencies Need for vaccination Need for prophylactic vaccination and inoculation against unspecified single disease [facility] Diagnosis Urinary frequency- Primary Dysuria [facility] Diagnosis Menorrhagia with regular cycle- Primary Excessive or frequent menstruation Dysmenorrhea Encounter for prescription for nuvaring Surveillance of other previously prescribed contraceptive method Ethan glabrata infection Candidiasis of unspecified site [facility]* Diagnosis Trapezius muscle strain, right, initial encounter- Primary [facility]* Diagnosis Gastroesophageal reflux disease with esophagitis without hemorrhage- Primary Epigastric pain Abdominal pain, epigastric Bloated abdomen Flatulence, eructation, and gas pain Acute constipation Unspecified constipation Generalized abdominal pain Abdominal pain, generalized [facility] in this [facility]* Diagnosis Obstructive sleep apnea- Primary Obstructive sleep apnea (adult) (pediatric) RLS (restless legs syndrome) Restless legs syndrome (RLS) Chronic insomnia Insomnia, unspecified Excessive daytime sleepiness Malaise and fatigue Other malaise and fatigue Bipolar affective disorder, remission status unspecified ([facility]) PTSD (post-traumatic stress disorder) Posttraumatic stress disorder Depression, unspecified depression type [facility]* Diagnosis Hyperlipidemia, mixed- Primary Mixed hyperlipidemia Gastroesophageal reflux disease with esophagitis without hemorrhage Chronic constipation Unspecified constipation Mild intermittent extrinsic asthma without complication Generalized headache Headache RLS (restless legs syndrome) Restless legs syndrome (RLS) Fibromyalgia Mylagia and myositis, unspecified Drug abuse ([facility]) Other, mixed, or unspecified nondependent drug abuse, unspecified History of heroin abuse ([facility]) Opioid abuse, in remission Psychophysiological insomnia Persistent disorder of initiating or maintaining sleep Bipolar affective disorder, remission status unspecified ([facility]) PTSD (post-traumatic stress disorder) Posttraumatic stress disorder Depression, unspecified depression type Anxiety Anxiety state, unspecified Attention deficit disorder, unspecified hyperactivity presence Nightmares Other dysfunctions of sleep stages or arousal from sleep RUQ pain Abdominal pain, right upper quadrant Gross hematuria Amenorrhea Absence of menstruation LLQ pain Abdominal pain, left lower quadrant [facility] Diagnosis Obstructive sleep apnea- Primary Obstructive sleep apnea (adult) (pediatric) RLS (restless legs syndrome) Restless legs syndrome (RLS) Chronic insomnia Insomnia, unspecified Bipolar affective disorder, remission status unspecified ([facility]) Malaise and fatigue Other malaise and fatigue Fibromyalgia Mylagia and myositis, unspecified Depression, unspecified depression type Nightmares associated with chronic post-traumatic stress disorder Other dysfunctions of sleep stages or arousal from sleep [facility] Diagnosis Urinary frequency- Primary Burning with urination Dysuria Vaginal discharge Leukorrhea, not specified as infective [facility]* Diagnosis Spinal stenosis of lumbar region, unspecified whether neurogenic claudication present- Primary Muscle spasm of back Other symptoms referable to back Dorsalgia Pain in thoracic spine Spinal stenosis of thoracic region [facility]* Diagnosis DUB (dysfunctional uterine bleeding)- Primary Other disorder of menstruation and other abnormal bleeding from female genital tract Special screening examination for human papillomavirus (HPV) Encounter for screening for malignant neoplasm of cervix Screening for malignant neoplasm of the cervix History of endometriosis Personal history of other genital system and obstetric disorders Excessive bleeding in premenopausal period Premenopausal menorrhagia Dysmenorrhea [facility]* Diagnosis RLS (restless legs syndrome) Restless legs syndrome (RLS) [facility] Diagnosis RLS (restless legs syndrome) Restless legs syndrome (RLS) [facility] Diagnosis EARLENE on CPAP- Primary Obstructive sleep apnea (adult) (pediatric) Chronic insomnia Insomnia, unspecified RLS (restless legs syndrome) Restless legs syndrome (RLS) [facility] Diagnosis Burning with urination- Primary Dysuria [facility] Diagnosis RUQ pain Abdominal pain, right upper quadrant Gross hematuria Amenorrhea Absence of menstruation LLQ pain Abdominal pain, left lower quadrant [facility] Diagnosis DUB (dysfunctional uterine bleeding) Other disorder of menstruation and other abnormal bleeding from female genital tract [facility]* Diagnosis Nausea and vomiting, unspecified vomiting type Hepatomegaly [facility]* Diagnosis Nausea and vomiting, unspecified vomiting type- Primary Gastroesophageal reflux disease with esophagitis without hemorrhage documented [facility] this [facility]* Diagnosis URI, acute- Primary Acute upper respiratory infections of unspecified site Sore throat Acute pharyngitis documented [facility] this [facility]* Diagnosis RLS (restless legs syndrome)- Primary Restless legs syndrome (RLS) documented in this [facility]* Diagnosis Epigastric pain- Primary Abdominal pain, epigastric Nausea and vomiting, unspecified vomiting type documented in this [facility]* Diagnosis Secondary amenorrhea- Primary Absence of menstruation Nipple discharge Other sign and symptom in breast documented in this [facility]* Diagnosis Primary insomnia- Primary Persistent disorder of initiating or maintaining sleep Low libido Decreased libido Hyperlipidemia, mixed Mixed hyperlipidemia Abnormal menstrual periods Excessive or frequent menstruation documented in this [facility]* Diagnosis Secondary amenorrhea Absence of menstruation [facility]* Diagnosis Nipple discharge Other sign and symptom in breast documented [facility]* Diagnosis Nipple discharge Other sign and symptom in breast [facility]* Diagnosis Acute cough- Primary Acute cough [facility]* Diagnosis Secondary amenorrhea- Primary Absence of menstruation Hyperprolactinemia (HCC) Other and unspecified anterior pituitary hyperfunction Nipple discharge Other sign and symptom in breast History of menorrhagia Personal history of other genital system and obstetric disorders [facility]* Diagnosis Sinobronchitis- Primary Unspecified sinusitis (chronic) documented [facility]* Diagnosis Muscle spasm of back- Primary Other symptoms referable to back Spinal stenosis of lumbar region, unspecified whether neurogenic claudication present [facility]* Diagnosis Bacterial URI- Primary Viral illness Unspecified viral infection, in conditions classified elsewhere and of unspecified site [facility]* Diagnosis Chronic pelvic pain in female- Primary Unspecified symptom associated with female genital organs documented in this [facility]* Diagnosis Spinal stenosis of lumbar region, unspecified whether neurogenic claudication present Muscle spasm of back Other symptoms referable to back documented in this [facility]* Diagnosis Hyperlipidemia, mixed- Primary Mixed hyperlipidemia Amenorrhea Absence of menstruation Obesity, Class II, BMI 35-39.9 Obesity, unspecified Medication management Encounter for long-term (current) use of other medications Screening for diabetes mellitus documented in this encounter [facility]* Diagnosis Hyperlipidemia, mixed Mixed hyperlipidemia documented in this encounter [facility] note* Diagnosis Sore throat- Primary Acute pharyngitis URI, acute Acute upper respiratory infections of unspecified site documented in this encounter [facility] note* Diagnosis Acute cough documented in this encounter [facility] note* Diagnosis RLS (restless legs syndrome) Restless legs syndrome (RLS) documented in this encounter [facility] note* Diagnosis Acute cough documented in this encounter [facility] note* Diagnosis Bronchitis Bronchitis, not specified as acute or chronic documented in this encounter [facility] note* Diagnosis Bloated abdomen Flatulence, eructation, and gas pain Generalized abdominal pain Abdominal pain, generalized documented in this encounter [facility] note* Diagnosis Otalgia, left- Primary Diarrhea, unspecified type documented in this encounter [facility] note* Diagnosis Acute pain of right knee documented in this encounter [facility] note* Diagnosis Bilateral thoracic back pain, unspecified chronicity Numbness and tingling Disturbance of skin sensation documented in this encounter [facility] note* Diagnosis Nausea and vomiting, unspecified vomiting type- Primary documented in this encounter [facility] note* Diagnosis Nausea and vomiting, unspecified vomiting type- Primary documented in this encounter [facility] note* Diagnosis Nausea and vomiting, unspecified vomiting type documented in this encounter [facility] note* Diagnosis Nausea and vomiting, unspecified vomiting type- Primary Abdominal pain, unspecified abdominal location documented in this encounter [facility] note* Diagnosis Spinal stenosis of lumbar region, unspecified whether neurogenic claudication present- Primary Discogenic thoracic pain Pain in thoracic spine Muscle spasm of back Other symptoms referable to back Spinal stenosis of thoracic region Dorsalgia Pain in thoracic spine documented in this encounter [facility] note* Diagnosis Hyperlipidemia, mixed Mixed hyperlipidemia documented in this encounter [facility] note* Diagnosis Diarrhea, unspecified type- Primary Withdrawal complaint Nausea and vomiting, unspecified vomiting type [facility]* Diagnosis Viral illness- Primary Unspecified viral infection, in conditions classified elsewhere and of unspecified site [facility]* Diagnosis RLS (restless legs syndrome)- Primary Restless legs syndrome (RLS) documented [facility]* Diagnosis Non-recurrent acute serous otitis media of left ear- Primary Viral gastroenteritis Intestinal infection due to other organism, not elsewhere classified Viral illness Unspecified viral infection, in conditions classified elsewhere and of unspecified site [facility]* Diagnosis Urinary frequency- Primary Vaginal discharge Leukorrhea, not specified as infective documented [facility]* Diagnosis Spinal stenosis of lumbar region, unspecified whether neurogenic claudication present Muscle spasm of back Other symptoms referable to back [facility] Diagnosis Discogenic thoracic pain- Primary Pain in thoracic spine Spinal stenosis of lumbar region, unspecified whether neurogenic claudication present Muscle spasm of back Other symptoms referable to back Spinal stenosis of thoracic region [facility]* Diagnosis RLS (restless legs syndrome) Restless legs syndrome (RLS) documented [facility]* Diagnosis Chronic insomnia- Primary Insomnia, unspecified RLS (restless legs syndrome) Restless legs syndrome (RLS) documented [facility]* Diagnosis Vaginal discharge- Primary Leukorrhea, not specified as infective Dysuria [facility]* Diagnosis Hyperlipidemia, mixed Mixed hyperlipidemia [facility]* Diagnosis Insomnia, unspecified type- Primary Hypersomnia Hypersomnia, unspecified Excessive daytime sleepiness Fatigue, unspecified type Inadequate sleep hygiene Other specific disorder of sleep of nonorganic origin Sleep disturbance Sleep disturbance, unspecified Obesity (BMI 30-39.9) Obesity, unspecified EARLENE (obstructive sleep apnea) Obstructive sleep apnea (adult) (pediatric) RLS (restless legs syndrome) Restless legs syndrome (RLS) Depression, unspecified depression type Anxiety Anxiety state, unspecified PTSD (post-traumatic stress disorder) Posttraumatic stress disorder Nightmares associated with chronic post-traumatic stress disorder Other dysfunctions of sleep stages or arousal from sleep Current smoker Tobacco use disorder Marijuana use Cannabis abuse, unspecified [facility] Diagnosis Encounter for gynecological examination (general) (routine) without abnormal findings- Primary Vaginal discharge Leukorrhea, not specified as infective [facility]* Diagnosis Flu-like symptoms- Primary Other general symptoms documented [facility]* Diagnosis Chronic insomnia Insomnia, unspecified documented [facility]* Diagnosis Dog bite of abdomen- Primary Dog bite of forearm, right, initial encounter Dog bite of lower leg, right, initial encounter documented [facility]* Diagnosis RLS (restless legs syndrome) Restless legs syndrome (RLS) documented [facility]* Diagnosis Pelvic pain in female- Primary Unspecified symptom associated with female genital organs Chronic pelvic pain in female Unspecified symptom associated with female genital organs History of menorrhagia Personal history of other genital system and obstetric disorders [facility]* Diagnosis Well adult exam- Primary Routine general medical examination at a health care facility Gastroesophageal reflux disease with esophagitis without hemorrhage Hyperlipidemia, mixed Mixed hyperlipidemia Mild intermittent extrinsic asthma without complication (HCC) RLS (restless legs syndrome) Restless legs syndrome (RLS) Left ear pain Otalgia, unspecified Bipolar affective disorder, remission status unspecified (HCC) Drug abuse (HCC) Other, mixed, or unspecified nondependent drug abuse, unspecified PTSD (post-traumatic stress disorder) Posttraumatic stress disorder Depression, unspecified depression type EARLENE (obstructive sleep apnea) Obstructive sleep apnea (adult) (pediatric) Urgency of urination History of hepatitis C Personal history of other infectious and parasitic disease Medication management Encounter for long-term (current) use of other medications Screening for diabetes mellitus [facility]* Diagnosis Chronic insomnia Insomnia, unspecified [facility]* Diagnosis RLS (restless legs syndrome) Restless legs syndrome (RLS) [facility]* Diagnosis Chronic insomnia Insomnia, unspecified documented [facility]* Diagnosis RLS (restless legs syndrome) Restless legs syndrome (RLS) documented [facility]* Diagnosis Spinal stenosis of lumbar region, unspecified whether neurogenic claudication present Muscle spasm of back Other symptoms referable to back [facility]* Diagnosis Primary insomnia- Primary Persistent disorder of initiating or maintaining sleep RLS (restless legs syndrome) Restless legs syndrome (RLS) EARLENE (obstructive sleep apnea) Obstructive sleep apnea (adult) (pediatric) Medication management Encounter for long-term (current) use of other medications Overweight (BMI 25.0-29.9) Overweight Excessive daytime sleepiness Fatigue, unspecified type Inadequate sleep hygiene Other specific disorder of sleep of nonorganic origin Sleep disturbance Sleep disturbance, unspecified Depression, unspecified depression type PTSD (post-traumatic stress disorder) Posttraumatic stress disorder Anxiety Anxiety state, unspecified Current smoker Tobacco use disorder Marijuana use Cannabis abuse, unspecified documented in this [facility]* Diagnosis Pharyngitis, unspecified etiology- Primary URI, acute Acute upper respiratory infections of unspecified site Fatigue, unspecified type documented in this encounter [facility] note* Diagnosis Primary insomnia Persistent disorder of initiating or maintaining sleep documented in this encounter [facility] note* Diagnosis Chronic insomnia- Primary Insomnia, unspecified Kwok-Ekbom syndrome Restless legs syndrome (RLS) RLS (restless legs syndrome) Restless legs syndrome (RLS) Primary insomnia Persistent disorder of initiating or maintaining sleep documented in this encounter [facility] for referral (narrative)* Diagnostic Procedure Only (Routine) - Closed Specialty Diagnoses / Procedures Referred By Contac t Referred To Contact XR IMAGING Diagnoses Bloated abdomen Generalized abdominal pain Procedures XR ABDOMEN 1V SUPINE RADIOLOGIC EXAM ABDOMEN 1 VIEW Ermias Lockwood MD [address] [place] [address] Xr Imaging Referral ID Status Reason Start Date Expiration Date [facility] Authorized [id number] Closed Auto-Generate d Referral 01/01/2023 01/31/2024 1 1 [facility] for referral (narrative)* Diagnostic Procedure Only (Routine) - Closed Specialty Diagnoses / Procedures Referred By Contac t Referred To Contact US IMAGING Diagnoses DUB (dysfunctional uterine bleeding) Procedures US FEMALE PELVIS TRANSVAG US TRANSVAGINAL Asif Mcfarland MD [address] [place] [address] [place] [address] Referral ID Status Reason Start Date Expiration Date V isits Requested Visits Authorized [id number] Closed Auto-Generate d Referral 04/12/2023 05/11/2024 1 1 [facility] for referral (narrative)* Diagnostic Procedure Only (Routine) - Closed Specialty Diagnoses / Procedures Referred By Contac t Referred To Contact US IMAGING Diagnoses Nausea and vomiting, unspecified vomiting type Hepatomegaly Procedures US ABD RIGHT UPPER QUADRANT US ABDOMINAL REAL TIME W/IMAGE LIMITED Franchesca Alarcon APRN.CNP [address] [id number] [place] [address] Referral ID Status Reason Start Date Expiration Date V isits Requested Visits Authorized [id number] Closed Auto-Generate d Referral 11/27/2023 12/26/2024 1 1 [facility] for referral (narrative)* Diagnostic Procedure Only (Routine) - Authorized Specialty Diagnoses / Procedures Referred By Contac t Referred To Contact BR IMAGING Diagnoses Nipple discharge Procedures US BREAST LTD LEFT US BREAST UNI REAL TIME WITH IMAGE LIMITED Canid Pizano APRN.[employer]EL ENGRAVER [address] [place] [address] [facility] [address] [place] [address] Referral ID Status Reason Start Date Expiration Date Visits Requested Visits Authorized [id number] Authorized Auto-Generat ed Referral 03/03/2024 04/02/2025 1 1 * Diagnostic Procedure Only (Routine) - Authorized Specialty Diagnoses / Procedures Referred By Contac t Referred To Contact BR IMAGING Diagnoses Nipple discharge Procedures US BREAST LTD RIGHT US BREAST UNI REAL TIME WITH IMAGE LIMITED Candi Pizano APRN.CNP [address] [place] [address] [facility] [address] [place] [address] Referral ID Status Reason Start Date Expiration Date Visits Requested Visits Authorized [id number] Authorized Auto-Generat ed Referral 03/03/2024 04/02/2025 1 1 * Diagnostic Procedure Only (Routine) - Authorized Specialty Diagnoses / Procedures Referred By Contac t Referred To Contact BR IMAGING Diagnoses Nipple discharge Procedures JIM DIAGNOSTIC BILATERAL DIAGNOSTIC MAMMOGRAPHY COMPUTER-AIDED DETCJ BI Candi Pizano APRN.STEEL WHEEL ENGRAVER [address] [place] [address] [facility] [address] [place] [address] Referral ID Status Reason Start Date Expiration Date Visits Requested Visits Authorized [id number] Authorized Auto-Generat ed Referral 03/03/2024 04/02/2025 1 1 * Diagnostic Procedure Only (Routine) - Authorized Specialty Diagnoses / Procedures Referred By Contac t Referred To Contact US IMAGING Diagnoses Secondary amenorrhea Procedures US FEMALE PELVIS TRANSVAG US TRANSVAGINAL Candi Pizano APRN.CNP [address] [place] [address] Us Imaging [facility] Referral ID Status Reason Start Date Expiration Date Visits Requested Visits Authorized [id number] Authorized Auto-Generat ed Referral 03/03/2024 04/02/2025 1 1 [facility] for referral (narrative)* Diagnostic Procedure Only (Routine) - Closed Specialty Diagnoses / Procedures Referred By Contac t Referred To Contact BR IMAGING Diagnoses Nipple discharge Procedures US BREAST LTD LEFT US BREAST UNI REAL TIME WITH IMAGE LIMITED Candi Pizano APRN.STEEL WHEEL ENGRAVER [address] [place] [address] [facility] [address] [place] [address] Referral ID Status Reason Start Date Expiration Date V isits Requested Visits Authorized [id number] Closed Auto-Generate d Referral 03/03/2024 04/02/2025 1 1 * Diagnostic Procedure Only (Routine) - Closed Specialty Diagnoses / Procedures Referred By Contac t Referred To Contact BR IMAGING Diagnoses Nipple discharge Procedures US BREAST LTD RIGHT US BREAST UNI REAL TIME WITH IMAGE LIMITED Candi Pizano APRN.STEEL WHEEL ENGRAVER [address] [place] [address] [facility] [address] [place] [address] Referral ID Status Reason Start Date Expiration Date V isits Requested Visits Authorized [id number] Closed Auto-Generate d Referral 03/03/2024 04/02/2025 1 1 [facility] for referral (narrative)* Diagnostic Procedure Only (Routine) - Closed Specialty Diagnoses / Procedures Referred By Contac t Referred To Contact XR IMAGING Diagnoses Bloated abdomen Generalized abdominal pain Procedures XR ABDOMEN 1V SUPINE RADIOLOGIC EXAM ABDOMEN 1 VIEW Ermias Lockwood MD [address] [place] [address] [place] [address] Referral ID Status Reason Start Date Expiration Date V isits Requested Visits Authorized [id number] Closed Auto-Generate d Referral 01/01/2023 01/31/2024 1 1 [facility] for referral (narrative)* Diagnostic Procedure Only (Routine) - Closed Specialty Diagnoses / Procedures Referred By Contac t Referred To Contact XR IMAGING Diagnoses Bilateral thoracic back pain, unspecified chronicity Numbness and tingling Procedures XR THORACIC GENERAL 3V AP/LAT/SAV X-RAY THORACIC SPINE AP/LAT W/Edith Jacobo PA-C [address] [place] [address] [place] [address] Referral ID Status Reason Start Date Expiration Date V isits Requested Visits Authorized [id number] Closed Auto-Generate d Referral 07/12/2021 08/11/2022 1 1 [facility] for referral (narrative)* Diagnostic Procedure Only (Routine) - New Request Specialty Diagnoses / Procedures Referred By Contac t Referred To Contact XR IMAGING Diagnoses Discogenic thoracic pain Procedures XR THORACIC LIMITED 2V AP/LAT RADEX SPINE THORACIC 2 VIEWS Nela Noel APRN.STEEL WHEEL ENGRAVER [address] [place] [address] [place] [address] Referral ID Status Reason Start Date Expiration Date Visits Requested Visits Authorized [id number] New Request Auto-Generat ed Referral 09/27/2025 1 1 * Diagnostic Procedure Only (Routine) - New Request Specialty Diagnoses / Procedures Referred By Contac t Referred To Contact XR IMAGING Diagnoses Spinal stenosis of lumbar region, unspecified whether neurogenic claudication present Procedures XR LUMBAR PARS DEFECT 4V AP/LAT/BOTH OBL RADEX SPINE LUMBOSACRAL MINIMUM 4 VIEWS Nela Noel APRN.STEEL WHEEL ENGRAVER [address] [place] [address] [place] [address] Referral ID Status Reason Start Date Expiration Date Visits Requested Visits Authorized [id number] New Request Auto-Generat ed Referral 4 09/27/2025 1 1 * MRI/CT (Routine) - New Request Specialty Diagnoses / Procedures Referred By Contac t Referred To Contact MR IMAGING Diagnoses Spinal stenosis of lumbar region, unspecified whether neurogenic claudication present Procedures MRI LUMBAR SPINE WO IVCON MRI SPINAL CANAL LUMBAR W/O CONTRAST MATERIAL Nela Noel APRN.STEEL WHEEL ENGRAVER [address] [place] [address] [place] [address] Referral ID Status Reason Start Date Expiration Date Visits Requested Visits Authorized [id number] New Request Auto-Generat ed Referral 09/27/2025 1 1 [facility] for visit Narrative* Diagnostic Procedure Only (Routine) - Closed Specialty Diagnoses / Procedures Referred By Contac t Referred To Contact BR IMAGING Diagnoses Nipple discharge Procedures JIM DIAGNOSTIC BILATERAL DIAGNOSTIC MAMMOGRAPHY COMPUTER-AIDED DETCJ BI Candi Pizano APRN.STEEL WHEEL ENGRAVER [address] [place] [address] [facility] [address] [place] [address] Referral ID Status Reason Start Date Expiration Date V isits Requested Visits Authorized [id number] Closed Auto-Generate d Referral 03/03/2024 04/02/2025 1 1 [facility] for visit Narrative* Diagnostic Procedure Only (Routine) - Closed Specialty Diagnoses / Procedures [facility] To [facility] Diagnoses Nipple discharge Procedures US BREAST LTD RIGHT US BREAST UNI REAL TIME WITH IMAGE LIMITED Candi Pizano APRN.STEEL WHEEL ENGRAVER [address] [place] [address] [facility] [address] [place] [id number] Referral ID Status Reason Start Date Expiration Date V isits Requested Visits Authorized [id number] Closed Auto-Generate d Referral 03/03/2024 04/02/2025 1 1 [facility] for visit Narrative* Diagnostic Procedure Only (Routine) - Closed Specialty Diagnoses / Procedures Referred By Contac t Referred To Contact XR IMAGING Diagnoses Bloated abdomen Generalized abdominal pain Procedures XR ABDOMEN 1V SUPINE RADIOLOGIC EXAM ABDOMEN 1 VIEW Ermias Lockwood MD [address] [place] [address] [place] [address] Referral ID Status Reason Start Date Expiration Date V isits Requested Visits Authorized [id number] Closed Auto-Generate d Referral 01/01/2023 01/31/2024 1 1 [facility] for visit Narrative* Diagnostic Procedure Only (Routine) - Closed Specialty Diagnoses / Procedures Referred By Contac t Referred To Contact XR IMAGING Diagnoses Bilateral thoracic back pain, unspecified chronicity Numbness and tingling Procedures XR THORACIC GENERAL 3V AP/LAT/SWIMMERS X-RAY THORACIC SPINE AP/LAT W/SWIM Edith Salguero PA-C [address] [place] [address] [place] [address] Referral ID Status Reason Start Date Expiration Date V isits Requested Visits Authorized Closed Auto-Generate d Referral 07/12/2021 08/11/2022 1 1 [facility] Summary Purpose Family History No Family History Records FoundNo Family History Records FoundNo Family History Records FoundNo Family History Records FoundNo Family History Records Found No data available for this section No Family History Records FoundNo Family History Records FoundNo Family History Records FoundNo Family History Records Found Advance Directives No Advanced Directives Records FoundNo Advanced Directives Records FoundNo Advanced Directives Records FoundNo Advanced Directives Records FoundNo Advanced Directives Records FoundNo Advanced Directives Records FoundNo Advanced Directives Records FoundNo Advanced Directives Records FoundNo Advanced Directives Records Found Health Concerns Infection Onset Date Last Indicated Resolved Time COVID-19 Rule-Out 07/11/2022 07/11/2022 Infection Onset Date Last Indicated Resolved Time COVID-19 Rule-Out 07/11/2022 07/11/2022 07/11/2022 10:12 PM EDT Reason for Referral Specialty Diagnoses / Procedures Referred By Contac t Referred To Contact Ent - Otolaryngology Diagnoses Acute otitis media, left Procedures CONSULT TO ENT OFFICE/OUTPATIENT [facility] HIGH MDM 60-74 MINUTES Earlene Watkins, GLASS ROLLING MACHINE OPERATOR.STEEL WHEEL ENGRAVER [address] [place] [address] Referral ID Status Reason Start Date Expiration Date Visits Requested Visits Authorized [id number] Authorized PCP Requested Referral 07/21/2022 07/21/2023 1 1 Specialty Diagnoses / Procedures Referred By Contac t Referred To Contact CT IMAGING Diagnoses RUQ pain Gross hematuria Amenorrhea LLQ pain Procedures CT ABD/PEL W IVCON CT ABD & PELVIS W/CONTRAST Ermias Lockwood MD [address] [place] [address] Ct Imaging Referral ID Status Reason Start Date Expiration Date Visits Requested Visits Authorized [id number] Pending Review Auto-Generate d Referral Clearance Not Met -Financial Clearance Bypassed 02/02/2023 03/03/2024 2 2 Specialty Diagnoses / Procedures Referred By Contac t Referred To Contact Diagnoses DUB (dysfunctional uterine bleeding) History of endometriosis Procedures CONSULT TO MINIMALLY INVASIVE GYNECOLOGIC SURGERY OFFICE/OUTPATIENT NEW HIGH MDM 60-74 MINUTES Asif Mcfarland MD [address] [place] [address] Referral ID Status Reason Start Date Expiration Date Visits Requested Visits Authorized [id number] Authorized PCP Requested Referral Auto-Generate d Referral 04/12/2023 04/11/2024 1 1 Specialty Diagnoses / Procedures Referred By Contac t Referred To Contact US IMAGING Diagnoses DUB (dysfunctional uterine bleeding) Procedures US FEMALE PELVIS TRANSVAG US TRANSVAGINAL Asif Mcfarland MD [address] [place] [address] Us Imaging Referral ID Status Reason Start Date Expiration Date V isits Requested Visits Authorized [id number] Closed Auto-Generate d Referral 04/12/2023 05/11/2024 1 1 Specialty Diagnoses / Procedures Referred By Contac t Referred To Contact [facility] Diagnoses DUB (dysfunctional uterine bleeding) Procedures PELVIC US WHI US PELVIC NONOBSTETRIC REAL-TIME IMAGE COMPLETE Asif Mcfarland MD [address] [place] [address] [facility] [address] [place] [address] Referral ID Status Reason Start Date Expiration Date Visits Requested Visits Authorized [id number] Pending Review Auto-Generat ed Referral 04/12/2023 04/11/2024 1 1 Specialty Diagnoses / Procedures Referred By Contac t Referred To Contact CT IMAGING Diagnoses RUQ pain Gross hematuria Amenorrhea LLQ pain Procedures CT ABD/PEL W IVCON CT ABD & PELVIS W/CONTRAST Ermias Lockwood MD [address] [place] [address] [place] [address] Referral ID Status Reason Start Date Expiration Date V isits Requested Visits Authorized [id number] Closed Auto-Generated Referral Clearance Not Met -Financial Clearance Bypassed 02/02/2023 04/03/2023 2 2 Specialty Diagnoses / Procedures Referred By Contac t Referred To Contact Diagnoses History of menorrhagia Procedures CONSULT TO MINIMALLY INVASIVE GYNECOLOGIC SURGERY OFFICE/OUTPATIENT [facility] 60 MINUTES Candi Pizano APRN.STEEL WHEEL ENGRAVER [address] [place] [id number] Referral ID Status Reason Start Date Expiration Date Visits Requested Visits Authorized [id number] Authorized PCP Requested Referral Auto-Generate d Referral 04/10/2024 04/10/2025 1 1 Specialty Diagnoses / Procedures Referred By Contac t Referred To Contact Gastroenterology Diagnoses Nausea and vomiting, unspecified vomiting type Procedures CONSULT TO GASTROENTEROLOGY OFFICE/OUTPATIENT [facility] 60 MINUTES Shlioh Putnam PA-C [address] [place] [address] Referral ID Status Reason Start Date Expiration Date Visits Requested Visits Authorized [id number] Authorized PCP Requested Referral 08/18/2025 1 1 Specialty Diagnoses / Procedures Referred By Contac t Referred To Contact CT IMAGING Diagnoses Nausea and vomiting, unspecified vomiting type Procedures CT ABD/PEL W IVCON CT ABD & PELVIS W/CONTRAST Franchesca Alarcon, KUMAR.STEEL WHEEL ENGRAVER [address] [place] [address] [place] [address] Referral ID Status Reason Start Date Expiration Date Visits Requested Visits Authorized [id number] Authorized Auto-Generat ed Referral 09/18/2025 1 1 Referral ID Status Reason Start Date Expiration Date V isits Requested Visits Authorized [id number] Closed Auto-Generate d Referral 08/19/2024 09/18/2025 2 2 Specialty Diagnoses / Procedures Referred By Contac t Referred To Contact Gastroenterology Diagnoses Nausea and vomiting, unspecified vomiting type Abdominal pain, unspecified abdominal location Procedures CONSULT TO GASTROENTEROLOGY OFFICE/OUTPATIENT [facility] 60 MINUTES Franchesca Alarcon APRN.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 DATE CREATED AUTHOR AUTHOR'S ORGANIZ ATION 06/27/2018 [facility] DATE CREATED AUTHOR AUTHOR'S ORGANIZ ATION 04/13/2019 [facility] DATE CREATED AUTHOR AUTHOR'S ORGANIZ ATION 08/12/2019 [facility] DATE CREATED AUTHOR AUTHOR'S ORGANIZ ATION 10/24/2019 [facility] DATE CREATED AUTHOR AUTHOR'S ORGANIZ ATION 01/23/2024 [facility] ([place]) DATE CREATED AUTHOR AUTHOR'S ORGANIZ ATION 04/19/2024 [facility] DATE CREATED AUTHOR AUTHOR'S ORGANIZ ATION 07/04/2025 [facility] DATE CREATED AUTHOR AUTHOR'S ORGANIZ ATION 08/29/2025 [facility] Source Comments (unrecognize d section and content) In the event this informatio n is protected by the Federal Confidentiality of Alcohol and Drug Abuse Patient Records regulations: The Federal rules restrict any use of the information to criminally investigate or prosecute any alcohol or drug abuse patient.[facility] the event this information is protected by the Federal Confidentiality of Alcohol and Drug Abuse Patient Records regulations: The Federal rules restrict any use of the information to criminally investigate or prosecute any alcohol or drug abuse patient.[facility] the event this information is protected by the Federal Confidentiality of Alcohol and Drug Abuse Patient Records regulations: The Federal rules restrict any use of the information to criminally investigate or prosecute any alcohol or drug abuse patient.[facility] Hospital[facility] the event this information is protected by the Federal Confidentiality of Alcohol and Drug Abuse Patient Records regulations: The Federal rules restrict any use of the information to criminally investigate or prosecute any alcohol or drug abuse patient.[facility] HospitalIn the event this information is protected by the Federal Confidentiality of Alcohol and Drug Abuse Patient Records regulations: The Federal rules restrict any use of the information to criminally investigate or prosecute any alcohol or drug abuse patient.[facility] HospitalIn the event this information is protected by the Federal Confidentiality of Alcohol and Drug Abuse Patient Records regulations: The Federal rules restrict any use of the information to criminally investigate or prosecute any alcohol or drug abuse patient.[facility] HospitalIn the event this information is protected by the Federal Confidentiality of Alcohol and Drug Abuse Patient Records regulations: The Federal rules restrict any use of the information to criminally investigate or prosecute any alcohol or drug abuse patient.[facility] HospitalIn the event this information is protected by the Federal Confidentiality of Alcohol and Drug Abuse Patient Records regulations: The Federal rules restrict any use of the information to criminally investigate or prosecute any alcohol or drug abuse patient.[facility] HospitalIn the event this information is protected by the Federal Confidentiality of Alcohol and Drug Abuse Patient Records regulations: The Federal rules restrict any use of the information to criminally investigate or prosecute any alcohol or drug abuse patient.[facility] HospitalIn the event this information is protected by the Federal Confidentiality of Alcohol and Drug Abuse Patient Records regulations: The Federal rules restrict any use of the information to criminally investigate or prosecute any alcohol or drug abuse patient.[facility] HospitalIn the event this information is protected by the Federal Confidentiality of Alcohol and Drug Abuse Patient Records regulations: The Federal rules restrict any use of the information to criminally investigate or prosecute any alcohol or drug abuse patient.[facility] HospitalIn the event this information is protected by the Federal Confidentiality of Alcohol and Drug Abuse Patient Records regulations: The Federal rules restrict any use of the information to criminally investigate or prosecute any alcohol or drug abuse patient.[facility] HospitalIn the event this information is protected by the Federal Confidentiality of Alcohol and Drug Abuse Patient Records regulations: The Federal rules restrict any use of the information to criminally investigate or prosecute any alcohol or drug abuse patient.[facility] HospitalIn the event this information is protected by the Federal Confidentiality of Alcohol and Drug Abuse Patient Records regulations: The Federal rules restrict any use of the information to criminally investigate or prosecute any alcohol or drug abuse patient.[facility] HospitalIn the event this information is protected by the Federal Confidentiality of Alcohol and Drug Abuse Patient Records regulations: The Federal rules restrict any use of the information to criminally investigate or prosecute any alcohol or drug abuse patient.[facility] HospitalIn the event this information is protected by the Federal Confidentiality of Alcohol and Drug Abuse Patient Records regulations: The Federal rules restrict any use of the information to criminally investigate or prosecute any alcohol or drug abuse patient.[facility] HospitalIn the event this information is protected by the Federal Confidentiality of Alcohol and Drug Abuse Patient Records regulations: The Federal rules restrict any use of the information to criminally investigate or prosecute any alcohol or drug abuse patient.[facility] HospitalIn the event this information is protected by the Federal Confidentiality of Alcohol and Drug Abuse Patient Records regulations: The Federal rules restrict any use of the information to criminally investigate or prosecute any alcohol or drug abuse patient.[facility] HospitalIn the event this information is protected by the Federal Confidentiality of Alcohol and Drug Abuse Patient Records regulations: The Federal rules restrict any use of the information to criminally investigate or prosecute any alcohol or drug abuse patient.[facility] HospitalIn the event this information is protected by the Federal Confidentiality of Alcohol and Drug Abuse Patient Records regulations: The Federal rules restrict any use of the information to criminally investigate or prosecute any alcohol or drug abuse patient.[facility] HospitalIn the event this information is protected by the Federal Confidentiality of Alcohol and Drug Abuse Patient Records regulations: The Federal rules restrict any use of the information to criminally investigate or prosecute any alcohol or drug abuse patient.[facility] HospitalIn the event this information is protected by the Federal Confidentiality of Alcohol and Drug Abuse Patient Records regulations: The Federal rules restrict any use of the information to criminally investigate or prosecute any alcohol or drug abuse patient.[facility] HospitalIn the event this information is protected by the Federal Confidentiality of Alcohol and Drug Abuse Patient Records regulations: The Federal rules restrict any use of the information to criminally investigate or prosecute any alcohol or drug abuse patient.[facility] HospitalIn the event this information is protected by the Federal Confidentiality of Alcohol and Drug Abuse Patient Records regulations: The Federal rules restrict any use of the information to criminally investigate or prosecute any alcohol or drug abuse patient.[facility] HospitalIn the event this information is protected by the Federal Confidentiality of Alcohol and Drug Abuse Patient Records regulations: The Federal rules restrict any use of the information to criminally investigate or prosecute any alcohol or drug abuse patient.[facility] HospitalIn the event this information is protected by the Federal Confidentiality of Alcohol and Drug Abuse Patient Records regulations: The Federal rules restrict any use of the information to criminally investigate or prosecute any alcohol or drug abuse patient.[facility] HospitalIn the event this information is protected by the Federal Confidentiality of Alcohol and Drug Abuse Patient Records regulations: The Federal rules restrict any use of the information to criminally investigate or prosecute any alcohol or drug abuse patient.[facility] HospitalIn the event this information is protected by the Federal Confidentiality of Alcohol and Drug Abuse Patient Records regulations: The Federal rules restrict any use of the information to criminally investigate or prosecute any alcohol or drug abuse patient.[facility] HospitalIn the event this information is protected by the Federal Confidentiality of Alcohol and Drug Abuse Patient Records regulations: The Federal rules restrict any use of the information to criminally investigate or prosecute any alcohol or drug abuse patient.[facility] HospitalIn the event this information is protected by the Federal Confidentiality of Alcohol and Drug Abuse Patient Records regulations: The Federal rules restrict any use of the information to criminally investigate or prosecute any alcohol or drug abuse patient.[facility] HospitalIn the event this information is protected by the Federal Confidentiality of Alcohol and Drug Abuse Patient Records regulations: The Federal rules restrict any use of the information to criminally investigate or prosecute any alcohol or drug abuse patient.[facility] HospitalIn the event this information is protected by the Federal Confidentiality of Alcohol and Drug Abuse Patient Records regulations: The Federal rules restrict any use of the information to criminally investigate or prosecute any alcohol or drug abuse patient.[facility] HospitalIn the event this information is protected by the Federal Confidentiality of Alcohol and Drug Abuse Patient Records regulations: The Federal rules restrict any use of the information to criminally investigate or prosecute any alcohol or drug abuse patient.[facility] HospitalIn the event this information is protected by the Federal Confidentiality of Alcohol and Drug Abuse Patient Records regulations: The Federal rules restrict any use of the information to criminally investigate or prosecute any alcohol or drug abuse patient.[facility]In the event this information is protected by the Federal Confidentiality of Alcohol and Drug Abuse Patient Records regulations: The Federal rules restrict any use of the information to criminally investigate or prosecute any alcohol or drug abuse patient.[facility]In the event this information is protected by the Federal Confidentiality of Alcohol and Drug Abuse Patient Records regulations: The Federal rules restrict any use of the information to criminally investigate or prosecute any alcohol or drug abuse patient.[facility]In the event this information is protected by the Federal Confidentiality of Alcohol and Drug Abuse Patient Records regulations: The Federal rules restrict any use of the information to criminally investigate or prosecute any alcohol or drug abuse patient.[facility]In the event this information is protected by the Federal Confidentiality of Alcohol and Drug Abuse Patient Records regulations: The Federal rules restrict any use of the information to criminally investigate or prosecute any alcohol or drug abuse patient.[facility]In the event this information is protected by the Federal Confidentiality of Alcohol and Drug Abuse Patient Records regulations: The Federal rules restrict any use of the information to criminally investigate or prosecute any alcohol or drug abuse patient.[facility]In the event this information is protected by the Federal Confidentiality of Alcohol and Drug Abuse Patient Records regulations: The Federal rules restrict any use of the information to criminally investigate or prosecute any alcohol or drug abuse patient.[facility]In the event this information is protected by the Federal Confidentiality of Alcohol and Drug Abuse Patient Records regulations: The Federal rules restrict any use of the information to criminally investigate or prosecute any alcohol or drug abuse patient.[facility]In the event this information is protected by the Federal Confidentiality of Alcohol and Drug Abuse Patient Records regulations: The Federal rules restrict any use of the information to criminally investigate or prosecute any alcohol or drug abuse patient.[facility]In the event this information is protected by the Federal Confidentiality of Alcohol and Drug Abuse Patient Records regulations: The Federal rules restrict any use of the information to criminally investigate or prosecute any alcohol or drug abuse patient.[facility]In the event this information is protected by the Federal Confidentiality of Alcohol and Drug Abuse Patient Records regulations: The Federal rules restrict any use of the information to criminally investigate or prosecute any alcohol or drug abuse patient.[facility] HospitalIn the event this information is protected by the Federal Confidentiality of Alcohol and Drug Abuse Patient Records regulations: The Federal rules restrict any use of the information to criminally investigate or prosecute any alcohol or drug abuse patient.[facility] the event this information is protected by the Federal Confidentiality of Alcohol and Drug Abuse Patient Records regulations: The Federal rules restrict any use of the information to criminally investigate or prosecute any alcohol or drug abuse patient.[facility] HospitalIn the event this information is protected by the Federal Confidentiality of Alcohol and Drug Abuse Patient Records regulations: The Federal rules restrict any use of the information to criminally investigate or prosecute any alcohol or drug abuse patient.[facility] HospitalIn the event this information is protected by the Federal Confidentiality of Alcohol and Drug Abuse Patient Records regulations: The Federal rules restrict any use of the information to criminally investigate or prosecute any alcohol or drug abuse patient.[facility] the event this information is protected by the Federal Confidentiality of Alcohol and Drug Abuse Patient Records regulations: The Federal rules restrict any use of the information to criminally investigate or prosecute any alcohol or drug abuse patient.[facility] HospitalIn the event this information is protected by the Federal Confidentiality of Alcohol and Drug Abuse Patient Records regulations: The Federal rules restrict any use of the information to criminally investigate or prosecute any alcohol or drug abuse patient.[facility] HospitalIn the event this information is protected by the Federal Confidentiality of Alcohol and Drug Abuse Patient Records regulations: The Federal rules restrict any use of the information to criminally investigate or prosecute any alcohol or drug abuse patient.[facility]In the event this information is protected by the Federal Confidentiality of Alcohol and Drug Abuse Patient Records regulations: The Federal rules restrict any use of the information to criminally investigate or prosecute any alcohol or drug abuse patient.[facility] HospitalIn the event this information is protected by the Federal Confidentiality of Alcohol and Drug Abuse Patient Records regulations: The Federal rules restrict any use of the information to criminally investigate or prosecute any alcohol or drug abuse patient.[facility] HospitalIn the event this information is protected by the Federal Confidentiality of Alcohol and Drug Abuse Patient Records regulations: The Federal rules restrict any use of the information to criminally investigate or prosecute any alcohol or drug abuse patient.[facility] HospitalIn the event this information is protected by the Federal Confidentiality of Alcohol and Drug Abuse Patient Records regulations: The Federal rules restrict any use of the information to criminally investigate or prosecute any alcohol or drug abuse patient.[facility]In the event this information is protected by the Federal Confidentiality of Alcohol and Drug Abuse Patient Records regulations: The Federal rules restrict any use of the information to criminally investigate or prosecute any alcohol or drug abuse patient.[facility]In the event this information is protected by the Federal Confidentiality of Alcohol and Drug Abuse Patient Records regulations: The Federal rules restrict any use of the information to criminally investigate or prosecute any alcohol or drug abuse patient.[facility] HospitalIn the event this information is protected by the Federal Confidentiality of Alcohol and Drug Abuse Patient Records regulations: The Federal rules restrict any use of the information to criminally investigate or prosecute any alcohol or drug abuse patient.[facility] HospitalIn the event this information is protected by the Federal Confidentiality of Alcohol and Drug Abuse Patient Records regulations: The Federal rules restrict any use of the information to criminally investigate or prosecute any alcohol or drug abuse patient.[facility] HospitalIn the event this information is protected by the Federal Confidentiality of Alcohol and Drug Abuse Patient Records regulations: The Federal rules restrict any use of the information to criminally investigate or prosecute any alcohol or drug abuse patient.[facility] HospitalIn the event this information is protected by the Federal Confidentiality of Alcohol and Drug Abuse Patient Records regulations: The Federal rules restrict any use of the information to criminally investigate or prosecute any alcohol or drug abuse patient.[facility] HospitalIn the event this information is protected by the Federal Confidentiality of Alcohol and Drug Abuse Patient Records regulations: The Federal rules restrict any use of the information to criminally investigate or prosecute any alcohol or drug abuse patient.[facility]In the event this information is protected by the Federal Confidentiality of Alcohol and Drug Abuse Patient Records regulations: The Federal rules restrict any use of the information to criminally investigate or prosecute any alcohol or drug abuse patient.[facility] HospitalIn the event this information is protected by the Federal Confidentiality of Alcohol and Drug Abuse Patient Records regulations: The Federal rules restrict any use of the information to criminally investigate or prosecute any alcohol or drug abuse patient.[facility] HospitalIn the event this information is protected by the Federal Confidentiality of Alcohol and Drug Abuse Patient Records regulations: The Federal rules restrict any use of the information to criminally investigate or prosecute any alcohol or drug abuse patient.[facility]In the event this information is protected by the Federal Confidentiality of Alcohol and Drug Abuse Patient Records regulations: The Federal rules restrict any use of the information to criminally investigate or prosecute any alcohol or drug abuse patient.[facility]In the event this information is protected by the Federal Confidentiality of Alcohol and Drug Abuse Patient Records regulations: The Federal rules restrict any use of the information to criminally investigate or prosecute any alcohol or drug abuse patient.[facility]In the event this information is protected by the Federal Confidentiality of Alcohol and Drug Abuse Patient Records regulations: The Federal rules restrict any use of the information to criminally investigate or prosecute any alcohol or drug abuse patient.[facility] HospitalIn the event this information is protected by the Federal Confidentiality of Alcohol and Drug Abuse Patient Records regulations: The Federal rules restrict any use of the information to criminally investigate or prosecute any alcohol or drug abuse patient.[facility] HospitalIn the event this information is protected by the Federal Confidentiality of Alcohol and Drug Abuse Patient Records regulations: The Federal rules restrict any use of the information to criminally investigate or prosecute any alcohol or drug abuse patient.[facility] HospitalIn the event this information is protected by the Federal Confidentiality of Alcohol and Drug Abuse Patient Records regulations: The Federal rules restrict any use of the information to criminally investigate or prosecute any alcohol or drug abuse patient.[facility] HospitalIn the event this information is protected by the Federal Confidentiality of Alcohol and Drug Abuse Patient Records regulations: The Federal rules restrict any use of the information to criminally investigate or prosecute any alcohol or drug abuse patient.[facility] HospitalIn the event this information is protected by the Federal Confidentiality of Alcohol and Drug Abuse Patient Records regulations: The Federal rules restrict any use of the information to criminally investigate or prosecute any alcohol or drug abuse patient.[facility] HospitalIn the event this information is protected by the Federal Confidentiality of Alcohol and Drug Abuse Patient Records regulations: The Federal rules restrict any use of the information to criminally investigate or prosecute any alcohol or drug abuse patient.[facility] HospitalIn the event this information is protected by the Federal Confidentiality of Alcohol and Drug Abuse Patient Records regulations: The Federal rules restrict any use of the information to criminally investigate or prosecute any alcohol or drug abuse patient.[facility] HospitalIn the event this information is protected by the Federal Confidentiality of Alcohol and Drug Abuse Patient Records regulations: The Federal rules restrict any use of the information to criminally investigate or prosecute any alcohol or drug abuse patient.[facility] HospitalIn the event this information is protected by the Federal Confidentiality of Alcohol and Drug Abuse Patient Records regulations: The Federal rules restrict any use of the information to criminally investigate or prosecute any alcohol or drug abuse patient.[facility] HospitalIn the event this information is protected by the Federal Confidentiality of Alcohol and Drug Abuse Patient Records regulations: The Federal rules restrict any use of the information to criminally investigate or prosecute any alcohol or drug abuse patient.[facility] HospitalIn the event this information is protected by the Federal Confidentiality of Alcohol and Drug Abuse Patient Records regulations: The Federal rules restrict any use of the information to criminally investigate or prosecute any alcohol or drug abuse patient.[facility] HospitalIn the event this information is protected by the Federal Confidentiality of Alcohol and Drug Abuse Patient Records regulations: The Federal rules restrict any use of the information to criminally investigate or prosecute any alcohol or drug abuse patient.[facility] HospitalIn the event this information is protected by the Federal Confidentiality of Alcohol and Drug Abuse Patient Records regulations: The Federal rules restrict any use of the information to criminally investigate or prosecute any alcohol or drug abuse patient.[facility] HospitalIn the event this information is protected by the Federal Confidentiality of Alcohol and Drug Abuse Patient Records regulations: The Federal rules restrict any use of the information to criminally investigate or prosecute any alcohol or drug abuse patient.[facility]In the event this information is protected by the Federal Confidentiality of Alcohol and Drug Abuse Patient Records regulations: The Federal rules restrict any use of the information to criminally investigate or prosecute any alcohol or drug abuse patient.[facility] HospitalIn the event this information is protected by the Federal Confidentiality of Alcohol and Drug Abuse Patient Records regulations: The Federal rules restrict any use of the information to criminally investigate or prosecute any alcohol or drug abuse patient.[facility]In the event this information is protected by the Federal Confidentiality of Alcohol and Drug Abuse Patient Records regulations: The Federal rules restrict any use of the information to criminally investigate or prosecute any alcohol or drug abuse patient.[facility]In the event this information is protected by the Federal Confidentiality of Alcohol and Drug Abuse Patient Records regulations: The Federal rules restrict any use of the information to criminally investigate or prosecute any alcohol or drug abuse patient.[facility] HospitalIn the event this information is protected by the Federal Confidentiality of Alcohol and Drug Abuse Patient Records regulations: The Federal rules restrict any use of the information to criminally investigate or prosecute any alcohol or drug abuse patient.[facility]In the event this information is protected by the Federal Confidentiality of Alcohol and Drug Abuse Patient Records regulations: The Federal rules restrict any use of the information to criminally investigate or prosecute any alcohol or drug abuse patient.[facility]In the event this information is protected by the Federal Confidentiality of Alcohol and Drug Abuse Patient Records regulations: The Federal rules restrict any use of the information to criminally investigate or prosecute any alcohol or drug abuse patient.[facility]In the event this information is protected by the Federal Confidentiality of Alcohol and Drug Abuse Patient Records regulations: The Federal rules restrict any use of the information to criminally investigate or prosecute any alcohol or drug abuse patient.[facility] HospitalIn the event this information is protected by the Federal Confidentiality of Alcohol and Drug Abuse Patient Records regulations: The Federal rules restrict any use of the information to criminally investigate or prosecute any alcohol or drug abuse patient.[facility]In the event this information is protected by the Federal Confidentiality of Alcohol and Drug Abuse Patient Records regulations: The Federal rules restrict any use of the information to criminally investigate or prosecute any alcohol or drug abuse patient.[facility]In the event this information is protected by the Federal Confidentiality of Alcohol and Drug Abuse Patient Records regulations: The Federal rules restrict any use of the information to criminally investigate or prosecute any alcohol or drug abuse patient.[facility] HospitalIn the event this information is protected by the Federal Confidentiality of Alcohol and Drug Abuse Patient Records regulations: The Federal rules restrict any use of the information to criminally investigate or prosecute any alcohol or drug abuse patient.[facility] HospitalIn the event this information is protected by the Federal Confidentiality of Alcohol and Drug Abuse Patient Records regulations: The Federal rules restrict any use of the information to criminally investigate or prosecute any alcohol or drug abuse patient.[facility] the event this information is protected by the Federal Confidentiality of Alcohol and Drug Abuse Patient Records regulations: The Federal rules restrict any use of the information to criminally investigate or prosecute any alcohol or drug abuse patient.[facility] HospitalIn the event this information is protected by the Federal Confidentiality of Alcohol and Drug Abuse Patient Records regulations: The Federal rules restrict any use of the information to criminally investigate or prosecute any alcohol or drug abuse patient.[facility] HospitalIn the event this information is protected by the Federal Confidentiality of Alcohol and Drug Abuse Patient Records regulations: The Federal rules restrict any use of the information to criminally investigate or prosecute any alcohol or drug abuse patient.[facility] the event this information is protected by the Federal Confidentiality of Alcohol and Drug Abuse Patient Records regulations: The Federal rules restrict any use of the information to criminally investigate or prosecute any alcohol or drug abuse patient.[facility]In the event this information is protected by the Federal Confidentiality of Alcohol and Drug Abuse Patient Records regulations: The Federal rules restrict any use of the information to criminally investigate or prosecute any alcohol or drug abuse patient.[facility]In the event this information is protected by the Federal Confidentiality of Alcohol and Drug Abuse Patient Records regulations: The Federal rules restrict any use of the information to criminally investigate or prosecute any alcohol or drug abuse patient.[facility]In the event this information is protected by the Federal Confidentiality of Alcohol and Drug Abuse Patient Records regulations: The Federal rules restrict any use of the information to criminally investigate or prosecute any alcohol or drug abuse patient.[facility]In the event this information is protected by the Federal Confidentiality of Alcohol and Drug Abuse Patient Records regulations: The Federal rules restrict any use of the information to criminally investigate or prosecute any alcohol or drug abuse patient.[facility]In the event this information is protected by the Federal Confidentiality of Alcohol and Drug Abuse Patient Records regulations: The Federal rules restrict any use of the information to criminally investigate or prosecute any alcohol or drug abuse patient.[facility]In the event this information is protected by the Federal Confidentiality of Alcohol and Drug Abuse Patient Records regulations: The Federal rules restrict any use of the information to criminally investigate or prosecute any alcohol or drug abuse patient.[facility]In the event this information is protected by the Federal Confidentiality of Alcohol and Drug Abuse Patient Records regulations: The Federal rules restrict any use of the information to criminally investigate or prosecute any alcohol or drug abuse patient.[facility]In the event this information is protected by the Federal Confidentiality of Alcohol and Drug Abuse Patient Records regulations: The Federal rules restrict any use of the information to criminally investigate or prosecute any alcohol or drug abuse patient.[facility]In the event this information is protected by the Federal Confidentiality of Alcohol and Drug Abuse Patient Records regulations: The Federal rules restrict any use of the information to criminally investigate or prosecute any alcohol or drug abuse patient.[facility]In the event this information is protected by the Federal Confidentiality of Alcohol and Drug Abuse Patient Records regulations: The Federal rules restrict any use of the information to criminally investigate or prosecute any alcohol or drug abuse patient.[facility]In the event this information is protected by the Federal Confidentiality of Alcohol and Drug Abuse Patient Records regulations: The Federal rules restrict any use of the information to criminally investigate or prosecute any alcohol or drug abuse patient.[facility]In the event this information is protected by the Federal Confidentiality of Alcohol and Drug Abuse Patient Records regulations: The Federal rules restrict any use of the information to criminally investigate or prosecute any alcohol or drug abuse patient.[facility]In the event this information is protected by the Federal Confidentiality of Alcohol and Drug Abuse Patient Records regulations: The Federal rules restrict any use of the information to criminally investigate or prosecute any alcohol or drug abuse patient.[facility]In the event this information is protected by the Federal Confidentiality of Alcohol and Drug Abuse Patient Records regulations: The Federal rules restrict any use of the information to criminally investigate or prosecute any alcohol or drug abuse patient.[facility]In the event this information is protected by the Federal Confidentiality of Alcohol and Drug Abuse Patient Records regulations: The Federal rules restrict any use of the information to criminally investigate or prosecute any alcohol or drug abuse patient.[facility]In the event this information is protected by the Federal Confidentiality of Alcohol and Drug Abuse Patient Records regulations: The Federal rules restrict any use of the information to criminally investigate or prosecute any alcohol or drug abuse patient.[facility] HospitalIn the event this information is protected by the Federal Confidentiality of Alcohol and Drug Abuse Patient Records regulations: The Federal rules restrict any use of the information to criminally investigate or prosecute any alcohol or drug abuse patient.[facility] HospitalIn the event this information is protected by the Federal Confidentiality of Alcohol and Drug Abuse Patient Records regulations: The Federal rules restrict any use of the information to criminally investigate or prosecute any alcohol or drug abuse patient.[facility] HospitalIn the event this information is protected by the Federal Confidentiality of Alcohol and Drug Abuse Patient Records regulations: The Federal rules restrict any use of the information to criminally investigate or prosecute any alcohol or drug abuse patient.[facility] HospitalIn the event this information is protected by the Federal Confidentiality of Alcohol and Drug Abuse Patient Records regulations: The Federal rules restrict any use of the information to criminally investigate or prosecute any alcohol or drug abuse patient.[facility] HospitalIn the event this information is protected by the Federal Confidentiality of Alcohol and Drug Abuse Patient Records regulations: The Federal rules restrict any use of the information to criminally investigate or prosecute any alcohol or drug abuse patient.[facility] HospitalIn the event this information is protected by the Federal Confidentiality of Alcohol and Drug Abuse Patient Records regulations: The Federal rules restrict any use of the information to criminally investigate or prosecute any alcohol or drug abuse patient.[facility] HospitalIn the event this information is protected by the Federal Confidentiality of Alcohol and Drug Abuse Patient Records regulations: The Federal rules restrict any use of the information to criminally investigate or prosecute any alcohol or drug abuse patient.[facility] HospitalIn the event this information is protected by the Federal Confidentiality of Alcohol and Drug Abuse Patient Records regulations: The Federal rules restrict any use of the information to criminally investigate or prosecute any alcohol or drug abuse patient.[facility] HospitalIn the event this information is protected by the Federal Confidentiality of Alcohol and Drug Abuse Patient Records regulations: The Federal rules restrict any use of the information to criminally investigate or prosecute any alcohol or drug abuse patient.[facility] HospitalIn the event this information is protected by the Federal Confidentiality of Alcohol and Drug Abuse Patient Records regulations: The Federal rules restrict any use of the information to criminally investigate or prosecute any alcohol or drug abuse patient.[facility] HospitalIn the event this information is protected by the Federal Confidentiality of Alcohol and Drug Abuse Patient Records regulations: The Federal rules restrict any use of the information to criminally investigate or prosecute any alcohol or drug abuse patient.[facility] HospitalIn the event this information is protected by the Federal Confidentiality of Alcohol and Drug Abuse Patient Records regulations: The Federal rules restrict any use of the information to criminally investigate or prosecute any alcohol or drug abuse patient.[facility] HospitalIn the event this information is protected by the Federal Confidentiality of Alcohol and Drug Abuse Patient Records regulations: The Federal rules restrict any use of the information to criminally investigate or prosecute any alcohol or drug abuse patient.[facility] HospitalIn the event this information is protected by the Federal Confidentiality of Alcohol and Drug Abuse Patient Records regulations: The Federal rules restrict any use of the information to criminally investigate or prosecute any alcohol or drug abuse patient.[facility] HospitalIn the event this information is protected by the Federal Confidentiality of Alcohol and Drug Abuse Patient Records regulations: The Federal rules restrict any use of the information to criminally investigate or prosecute any alcohol or drug abuse patient.[facility] HospitalIn the event this information is protected by the Federal Confidentiality of Alcohol and Drug Abuse Patient Records regulations: The Federal rules restrict any use of the information to criminally investigate or prosecute any alcohol or drug abuse patient.[facility] HospitalIn the event this information is protected by the Federal Confidentiality of Alcohol and Drug Abuse Patient Records regulations: The Federal rules restrict any use of the information to criminally investigate or prosecute any alcohol or drug abuse patient.[facility] HospitalIn the event this information is protected by the Federal Confidentiality of Alcohol and Drug Abuse Patient Records regulations: The Federal rules restrict any use of the information to criminally investigate or prosecute any alcohol or drug abuse patient.[facility] HospitalIn the event this information is protected by the Federal Confidentiality of Alcohol and Drug Abuse Patient Records regulations: The Federal rules restrict any use of the information to criminally investigate or prosecute any alcohol or drug abuse patient.[facility] HospitalIn the event this information is protected by the Federal Confidentiality of Alcohol and Drug Abuse Patient Records regulations: The Federal rules restrict any use of the information to criminally investigate or prosecute any alcohol or drug abuse patient.[facility] HospitalIn the event this information is protected by the Federal Confidentiality of Alcohol and Drug Abuse Patient Records regulations: The Federal rules restrict any use of the information to criminally investigate or prosecute any alcohol or drug abuse patient.[facility] HospitalIn the event this information is protected by the Federal Confidentiality of Alcohol and Drug Abuse Patient Records regulations: The Federal rules restrict any use of the information to criminally investigate or prosecute any alcohol or drug abuse patient.[facility] HospitalIn the event this information is protected by the Federal Confidentiality of Alcohol and Drug Abuse Patient Records regulations: The Federal rules restrict any use of the information to criminally investigate or prosecute any alcohol or drug abuse patient.[facility] HospitalIn the event this information is protected by the Federal Confidentiality of Alcohol and Drug Abuse Patient Records regulations: The Federal rules restrict any use of the information to criminally investigate or prosecute any alcohol or drug abuse patient.[facility] HospitalIn the event this information is protected by the Federal Confidentiality of Alcohol and Drug Abuse Patient Records regulations: The Federal rules restrict any use of the information to criminally investigate or prosecute any alcohol or drug abuse patient.[facility] HospitalIn the event this information is protected by the Federal Confidentiality of Alcohol and Drug Abuse Patient Records regulations: The Federal rules restrict any use of the information to criminally investigate or prosecute any alcohol or drug abuse patient.[facility] HospitalIn the event this information is protected by the Federal Confidentiality of Alcohol and Drug Abuse Patient Records regulations: The Federal rules restrict any use of the information to criminally investigate or prosecute any alcohol or drug abuse patient.[facility] HospitalIn the event this information is protected by the Federal Confidentiality of Alcohol and Drug Abuse Patient Records regulations: The Federal rules restrict any use of the information to criminally investigate or prosecute any alcohol or drug abuse patient.[facility] HospitalIn the event this information is protected by the Federal Confidentiality of Alcohol and Drug Abuse Patient Records regulations: The Federal rules restrict any use of the information to criminally investigate or prosecute any alcohol or drug abuse patient.[facility] HospitalIn the event this information is protected by the Federal Confidentiality of Alcohol and Drug Abuse Patient Records regulations: The Federal rules restrict any use of the information to criminally investigate or prosecute any alcohol or drug abuse patient.[facility] the event this information is protected by the Federal Confidentiality of Alcohol and Drug Abuse Patient Records regulations: The Federal rules restrict any use of the information to criminally investigate or prosecute any alcohol or drug abuse patient.[facility] HospitalIn the event this information is protected by the Federal Confidentiality of Alcohol and Drug Abuse Patient Records regulations: The Federal rules restrict any use of the information to criminally investigate or prosecute any alcohol or drug abuse patient.[facility] HospitalIn the event this information is protected by the Federal Confidentiality of Alcohol and Drug Abuse Patient Records regulations: The Federal rules restrict any use of the information to criminally investigate or prosecute any alcohol or drug abuse patient.[facility] the event this information is protected by the Federal Confidentiality of Alcohol and Drug Abuse Patient Records regulations: The Federal rules restrict any use of the information to criminally investigate or prosecute any alcohol or drug abuse patient.[facility] Reason for Visit (unrecogniz ed section and content) Reason Comments Sleep Apnea Reason Comments PAP Rx Faxed Reason Comments Refill Request Reason Comments PAP Therapy Follow Up Reason Comments Established Patient Reason Comments Follow Up Reason Comments New Patient Reason Comments Sore Throat congestion x 1 day Reason Onset Date Comments Refill Request 07/13/2022 Reason Comments Nasal Congestion drainage, cough, sor e throat x 1 week, + home covid test 07/13 Reason Comments Reason Comments Pain (LT) ear pain, jaw p ain, nasal congestion x1 wk, taking ATB. Reason Comments Medication Question Reason Comments Physical Reason Comments Results Reason Comments Urinary Problem Pt reported frequenc y, burning, lower back pain rated 6, x1 wk. Reason Comments Results, Lab Reason Onset Date Comments Refill Request 09/25/2022 Reason Comments CMN Reason Comments Irregular Menstrual Cycle Reason Comments Neck Pain MERAZ x 4 days Reason Onset Date Comments Refill Request 12/18/2022 Reason Comments Abdominal Pain Patient is here for stomach cramping/vomiting. Reason Comments Sleep Apnea EARLENE, RLS, Insomnia - Follow Up Visit Reason Comments mask issues Reason Comments Patient Update Reason Comments Recheck 6 week follow up on stomach Reason Comments Urinary Frequency burning with urinati on and discharge x 1 week Reason Comments Refill Request Back Pain Reason Comments Menstrual Problem Reason Onset Date Comments Refill Request 06/12/2023 Reason Comments Outside [facility]-M[facility]-OSI Ordered Reason Comments Insomnia rls Reason Onset Date Comments Refill Request 08/03/2023 Reason Comments Urinary Problem Freq and burning x 1 week Specialty Diagnoses / Procedures Referred By Contac t Referred To Contact CT IMAGING Diagnoses RUQ pain Gross hematuria Amenorrhea LLQ pain Procedures CT ABD/PEL W IVCON CT ABD & PELVIS W/CONTRAST Ermias Lockwood MD [address] [place] [address] [place] [address] Referral ID Status Reason Start Date Expiration Date V isits Requested Visits Authorized [id number] Closed Auto-Generated Referral Clearance Not Met -Financial Clearance Bypassed 02/02/2023 04/03/2023 2 2 Reason Comments Radiology US Specialty Diagnoses / Procedures Referred By Contac t Referred To Contact US IMAGING Diagnoses DUB (dysfunctional uterine bleeding) Procedures US FEMALE PELVIS TRANSVAG US TRANSVAGINAL Asif Mcfarland MD [address] [place] [address] [place] [address] Referral ID Status Reason Start Date Expiration Date V isits Requested Visits Authorized [id number] Closed Auto-Generate d Referral 04/12/2023 05/11/2024 1 1 Specialty Diagnoses / Procedures Referred By Contac t Referred To Contact US IMAGING Diagnoses Nausea and vomiting, unspecified vomiting type Hepatomegaly Procedures US ABD RIGHT UPPER QUADRANT US ABDOMINAL REAL TIME W/IMAGE LIMITED Franchesca Alarcon GLASS ROLLING MACHINE OPERATOR.STEEL WHEEL ENGRAVER [address] [place] [address] [place] [address] Referral ID Status Reason Start Date Expiration Date V isits Requested Visits Authorized [id number] Closed Auto-Generate d Referral 11/27/2023 12/26/2024 1 1 Reason Comments outside ED Reason Comments Sore Throat bodyaches x 2 days Reason Comments Medication Refill Baclofen Reason Comments ED Follow-up [facility] - abdominal pain , nauseaWould like to go back on zofran and d/c reglan Reason Comments Menstrual Problem Reason Comments Follow Up Discuss labs Reason Comments Radiology US Specialty Diagnoses / Procedures Referred By Contac t Referred To Contact US IMAGING Diagnoses Secondary amenorrhea Procedures US FEMALE PELVIS TRANSVAG US TRANSVAGINAL Candi Pizano, GLASS ROLLING MACHINE OPERATOR.STEEL WHEEL ENGRAVER [address] [place] [address] [place] [address] Referral ID Status Reason Start Date Expiration Date V isits Requested Visits Authorized [id number] Closed Auto-Generate d Referral 03/03/2024 04/02/2025 1 1 Reason Comments Cough Non productive dry c ough, coughing fits, chest burning x 4 days Reason Comments Amenorrhea Reason Comments Cough Congestion and heada amanda x1 week Reason Onset Date Comments Refill Request 04/07/2024 Reason Comments Vomiting Specialty Diagnoses / Procedures Referred By Karin harding Referred To Contact Diagnoses History of menorrhagia Procedures CONSULT TO MINIMALLY INVASIVE GYNECOLOGIC SURGERY OFFICE/OUTPATIENT [facility] HIGH MDM 60 MINUTES Candi Pizano GLASS ROLLING MACHINE OPERATOR.STEEL WHEEL ENGRAVER [address] [place] [address] Referral ID Status Reason Start Date Expiration Date Visits Requested Visits Authorized [id number] Authorized PCP Requested Referral Auto-Generate d Referral 04/10/2024 04/10/2025 1 1 Reason Comments ER Discharge Summary Reason Comments Sinus Problem Sinus pressure, sore throat, exposed to covid x 2 days Reason Comments Ear Pain Left ear pain, diarr hea and nausea x 3-4 days Reason Comments Nausea & Vomiting x 5 days, acid refle x zofran not helping Reason Comments Physical Reason Comments Radiology CT Specialty Diagnoses / Procedures Referred By Karin harding Referred To Contact CT IMAGING Diagnoses Nausea and vomiting, unspecified vomiting type Procedures CT ABD/PEL W IVCON CT ABD & PELVIS W/CONTRAST Franchesca Alarcon, GLASS ROLLING MACHINE OPERATOR.STEEL WHEEL ENGRAVER [address] [place] [address] [place] [address] Referral ID Status Reason Start Date Expiration Date V isits Requested Visits Authorized [id number] Closed Auto-Generate d Referral 08/19/2024 09/18/2025 2 2 Reason Onset Date Comments Refill Request 08/22/2024 Reason Comments Results Reason Comments Back Pain Reason Comments Orders Reason Onset Date Comments Refill Request 09/08/2024 Reason Onset Date Comments Refill Request 09/16/2024 Reason Comments Ear Pain Left ear pain x 1 da ys and fever and vomiting x 2 days Reason Onset Date Comments Refill Request 10/10/2024 Reason Comments Ear Pain Reason Comments Urinary Frequency burning with urinati on x 4 days, just finished cefdinir Reason Onset Date Comments Refill Request 11/26/2024 Reason Comments Pain Follow Up Refill Request Reason Comments Vaginal Discharge Cramping, nausea, va ginal discharge, states she is having vomiting, x 3 weeks Reason Onset Date Comments Refill Request 12/12/2024 Reason Comments New Patient Evaluation Fatigue Trouble falling and/or staying asleep Med Management Medication Follow-up Reason Comments Orders Genesight ordered Reason Comments Well Woman Reason Comments Nasal Congestion drainage, headache, nausea and vomiting x 3 days Reason Onset Date Comments Refill Request 01/16/2025 Reason Comments Dog Bite Reason Comments Dog Bite x today, right arm, right leg and lower right abdominal area Reason Comments Problem Visit Reason Comments Yearly Exam Reason Onset Date Comments Refill Request 04/23/2025 Reason Comments Abstract [facility] ED visit, withou t admission Reason Onset Date Comments Refill Request 05/11/2025 Reason Comments Established Patient Follow Up Insomnia Leg Pain Med Management Reason Onset Date Comments Refill Request 05/21/2025 Reason Comments Acute Visit nasal congestion, co ugh, sore throat, body aches, fever x yesterday evening Reason Onset Date Comments Refill Request 06/09/2025 Care Teams (unrecognized sec tion and content) Dishwashing Machine Operator Relationship Specialty Start Date End Date Ermias Lockwood MD [address] [place] [address] PCP - [facility] 11/25/13 Dishwashing Machine Operator Relationship Specialty Start Date End Date Ermias Lockwood MD [address] [place] [address] PCP - [facility] 11/25/13 Dishwashing Machine Operator Relationship Specialty Start Date End Date Ermias Lockwood MD [address] [place] [address] PCP - [facility] 11/25/13 Dishwashing Machine Operator Relationship Specialty Start Date End Date Ermias Lockwood MD [address] [place] [address] PCP - General Family Practice 11/25/13 Dishwashing Machine Operator Relationship Specialty Start Date End Date Ermias Lockwood MD [address] [place] [address] PCP - General Family Practice 11/25/13 Dishwashing Machine Operator Relationship Specialty Start Date End Date Ermias Lockowod MD [address] [place] [address] PCP - General Family Practice 11/25/13 Dishwashing Machine Operator Relationship Specialty Start Date End Date Ermias Lockwood MD [address] [place] [address] PCP - General Family Practice 11/25/13 Dishwashing Machine Operator Relationship Specialty Start Date End Date Ermias Lockwood MD [address] [place] [address] PCP - General Family Practice 11/25/13 Dishwashing Machine Operator Relationship Specialty Start Date End Date Ermias Lockwood MD [facility] [place] [address] PCP - General Family Practice 11/25/13 Dishwashing Machine Operator Relationship Specialty Start Date End Date Ermias Lockwood MD [facility] [place] [address] PCP - General Family Practice 11/25/13 Dishwashing Machine Operator Relationship Specialty Start Date End Date Ermias Lockwood MD [facility] [place] [address] PCP - General Family Medicine 11/25/13 Dishwashing Machine Operator Relationship Specialty Start Date End Date Ermias Lockwood MD [facility] [place] [address] PCP - General Family Medicine 11/25/13 Dishwashing Machine Operator Relationship Specialty Start Date End Date Ermias Lockwood MD [facility] [place] [address] PCP - General Family Medicine 11/25/13 Dishwashing Machine Operator Relationship Specialty Start Date End Date Ermias Lockwood MD [facility] [place] [address] PCP - General Family Medicine 11/25/13 Dishwashing Machine Operator Relationship Specialty Start Date End Date Ermias Lockwood MD [address] [place] [address] PCP - General Family Medicine 11/25/13 Dishwashing Machine Operator Relationship Specialty Start Date End Date Ermias Lockwood MD [facility] [place] [address] PCP - General Family Medicine 11/25/13 Dishwashing Machine Operator Relationship Specialty Start Date End Date Ermias Lockwood MD [facility] [place] [address] PCP - General Family Medicine 11/25/13 Dishwashing Machine Operator Relationship Specialty Start Date End Date Ermias Lockwood MD [address] [place] [address], [place] [address] PCP - General Family Medicine 11/25/13 Dishwashing Machine Operator Relationship Specialty Start Date End Date Ermias Lockwood MD [address] [place] [address], [place] [address] PCP - General Family Medicine 11/25/13 Dishwashing Machine Operator Relationship Specialty Start Date End Date Ermias Lockwood MD [address] [place] [address], [place] [address] PCP - General Family Medicine 11/25/13 Dishwashing Machine Operator Relationship Specialty Start Date End Date Ermias Lockwood MD [facility] [place] [address] PCP - General Family Medicine 11/25/13 Dishwashing Machine Operator Relationship Specialty Start Date End Date Ermias Lockwood MD [address] [place] [address], [place] [address] PCP - General Family Medicine 11/25/13 Dishwashing Machine Operator Relationship Specialty Start Date End Date Ermias Lockwood MD [address] [place] [address], [place] [address] PCP - General Family Medicine 11/25/13 Dishwashing Machine Operator Relationship Specialty Start Date End Date Ermias Lockwood MD [address] [place] [address] PCP - General Family Medicine 11/25/13 Dishwashing Machine Operator Relationship Specialty Start Date End Date Ermias Lockwood MD [address] [place] [address] PCP - General Family Medicine 11/25/13 Dishwashing Machine Operator Relationship Specialty [place] [address] [place] [address], [place] [address] PCP - General Family Medicine 11/25/13 Dishwashing Machine Operator Relationship Specialty Start Date End Date Ermias Lockwood MD [address] [place] [address], [place] [address] PCP - General Family Medicine 11/25/13 Dishwashing Machine Operator Relationship Specialty Start Date End Date Ermias Lockwood MD [address] [place] [address], [place] [address] PCP - General Family Medicine 11/25/13 Dishwashing Machine Operator Relationship Specialty Start Date End Date Ermias Lockwood MD [address] [place] [address], [place] [address] PCP - General Family Medicine 11/25/13 Dishwashing Machine Operator Relationship Specialty [place] [address] [place] [address], [place] [address] PCP - General Family Medicine 11/25/13 Dishwashing Machine Operator Relationship Specialty Start Date End Date Ermias Lockwood MD [address] [place] [address], [place] [address] PCP - General Family Medicine 11/25/13 Dishwashing Machine Operator Relationship Specialty Start Date End Date Ermias Lockwood MD [address] [place] [address] PCP - General Family Medicine 11/25/13 Dishwashing Machine Operator Relationship Specialty Start Date End Date Ermias Lockwood MD [address] [place] [address] PCP - General Family Medicine 11/25/13 Dishwashing Machine Operator Relationship Specialty Start Date End Date Ermias Lockwood MD [address] [place] [address] PCP - General Family Medicine 11/25/13 Dishwashing Machine Operator Relationship Specialty Start Date End Date Ermias Lockwood MD [address] [place] [address] PCP - General Family Medicine 11/25/13 Dishwashing Machine Operator Relationship Specialty Start Date End Date Ermias Lockwood MD [address] [place] [address] PCP - General Family Medicine 11/25/13 Dishwashing Machine Operator Relationship Specialty Start Date End Date Ermias Lockwood MD [address] [place] [address] PCP - General Family Medicine 11/25/13 Dishwashing Machine Operator Relationship Specialty Start Date End Date Ermias Lockwood MD [address] [place] [address] PCP - General Family Medicine 11/25/13 Dishwashing Machine Operator Relationship Specialty Start Date End Date Ermias Lockwood MD [address] [place] [address] PCP - General Family Medicine 11/25/13 Dishwashing Machine Operator Relationship Specialty Start Date End Date Ermias Lockwood MD [address] [place] [address] PCP - General Family Medicine 11/25/13 Dishwashing Machine Operator Relationship Specialty Start Date End Date Ermias Lockwood MD [address] [place] [address] PCP - General Family Medicine 11/25/13 Dishwashing Machine Operator Relationship Specialty Start Date End Date Ermias Lockwood MD [address] [place] [address] PCP - General Family Medicine 11/25/13 Dishwashing Machine Operator Relationship Specialty Start Date End Date Ermias Lockwood MD [address] [place] [address] PCP - General Family Medicine 11/25/13 Dishwashing Machine Operator Relationship Specialty Start Date End Date Ermias Lockwood MD [address] [place] [address] PCP - General Family Medicine 11/25/13 Dishwashing Machine Operator Relationship Specialty Start Date End Date Ermias Lockwood MD [address] [place] [address] PCP - General Family Medicine 11/25/13 Dishwashing Machine Operator Relationship Specialty Start Date End Date Ermias Lockwood MD [address] [place] [address] PCP - General Family Medicine 11/25/13 Dishwashing Machine Operator Relationship Specialty Start Date End Date Ermias Lockwood MD [address] [place] [address] PCP - General Family Medicine 11/25/13 Dishwashing Machine Operator Relationship Specialty Start Date End Date Ermias Lockwood MD [address] [place] [address] PCP - General Family Medicine 11/25/13 Dishwashing Machine Operator Relationship Specialty Start Date End Date Ermias Lockwood MD [address] [place] [address] PCP - General Family Medicine 11/25/13 Dishwashing Machine Operator Relationship Specialty Start Date End Date Ermias Lockwood MD [address] [place] [address] PCP - General Family Medicine 11/25/13 Dishwashing Machine Operator Relationship Specialty Start Date End Date Ermias Lockwood MD [address] [place] [address] PCP - General Family Medicine 11/25/13 Dishwashing Machine Operator Relationship Specialty Start Date End Date Ermias Lockwood MD [address] [place] [address] PCP - General Family Medicine 11/25/13 Dishwashing Machine Operator Relationship Specialty Start Date End Date Ermias Lockwood MD [address] [place] [address] PCP - General Family Medicine 11/25/13 Dishwashing Machine Operator Relationship Specialty Start Date End Date Ermias Locwkood MD [address] [place] [address] PCP - General Family Medicine 11/25/13 Dishwashing Machine Operator Relationship Specialty Start Date End Date Ermias Lockwood MD [address] [place] [address] PCP - General Family Medicine 11/25/13 Dishwashing Machine Operator Relationship Specialty Start Date End Date Ermias Lockwood MD [address] [place] [address] PCP - General Family Medicine 11/25/13 Dishwashing Machine Operator Relationship Specialty Start Date End Date Ermias Lockwood MD [address] [place] [address] PCP - General Family Medicine 11/25/13 Dishwashing Machine Operator Relationship Specialty Start Date End Date Ermias Lockwood MD [address] [place] [address] PCP - General Family Medicine 11/25/13 Dishwashing Machine Operator Relationship Specialty Start Date End Date Ermias Lockwood MD [address] [place] [address] PCP - General Family Medicine 11/25/13 Dishwashing Machine Operator Relationship Specialty Start Date End Date Ermias Lockwood MD [address] [place] [address] PCP - General Family Medicine 11/25/13 Dishwashing Machine Operator Relationship Specialty Start Date End Date Ermias Lockwood MD [address] [place] [address] PCP - General Family Medicine 11/25/13 Franchesca Alarcon APRN.STEEL WHEEL ENGRAVER [address] [place] [address] Lumber Press Operator Family Medicine 10/04/24 Edith Salguero PA-C [address] [place] [address] Lumber Press Operator Family Medicine 10/04/24 Dishwashing Machine Operator Relationship Specialty Start Date End Date Ermias Lockwood MD [address] [place] [address] PCP - General Family Medicine 11/25/13 Franchesca Alarcon, KUMAR.STEEL WHEEL ENGRAVER [address] [place] [address] Lumber Press Operator Family Medicine 10/04/24 Edith Salguero PA-C [address] [place] [address] [place] 10/04/24 Dishwashing Machine Operator Relationship Specialty Start Date End Date Ermias Lockwood MD [address] [place] [address] PCP - General Family Medicine 11/25/13 Franchesca Alarcon, KUMAR.STEEL WHEEL ENGRAVER [address] [place] [address] Lumber Press Operator Family Medicine 10/04/24 Edith Salguero PA-C [address] [place] [address] Lumber Press Operator Family Medicine 10/04/24 Dishwashing Machine Operator Relationship Specialty Start Date End Date Ermias Lockwood MD [address] [place] [address] PCP - General Family Medicine 11/25/13 Franchesca Alarcon, GLASS ROLLING MACHINE OPERATOR.STEEL WHEEL ENGRAVER [address] [place] [address] Lumber Press Operator Family Medicine 10/04/24 Edith Salguero PA-C [address] [facility] [address] Lumber Press Operator Family Medicine 10/04/24 Dishwashing Machine Operator Relationship Specialty Start Date End Date Ermias Lockwood MD [address] [facility] [address] PCP - General Family Medicine 11/25/13 Franchesca Alarcon, KUMAR.STEEL WHEEL ENGRAVER [address] [place] [address] Lumber Press Operator Family Medicine 10/04/24 Ediht Salguero PA-C [address] [facility] [address] Lumber Press Operator Family Medicine 10/04/24 Dishwashing Machine Operator Relationship Specialty Start Date End Date Ermias Lockwood MD [address] [facility] [address] PCP - General Family Medicine 11/25/13 Franchesca Alarcon, KUMAR.STEEL WHEEL ENGRAVER [address] [place] [address] Lumber Press Operator Family Medicine 10/04/24 Edith Salguero PA-C [address] [facility] [address] Lumber Press Operator Family Medicine 10/04/24 Dishwashing Machine Operator Relationship Specialty Start Date End Date Ermias Lockwood MD [address] [facility] [address] PCP - General Family Medicine 11/25/13 Franchesca Alarcon, GLASS ROLLING MACHINE OPERATOR.STEEL WHEEL ENGRAVER [address] [place] [address] Lumber Press Operator Family Medicine 10/04/24 Edith Salguero PA-C [address] [place] [address] Lumber Press Operator Family Medicine 10/04/24 Dishwashing Machine Operator Relationship Specialty Start Date End Date Ermias Lockwood MD [address] [place] [address] PCP - General Family Medicine 11/25/13 Franchesca Alarcon APRN.STEEL WHEEL ENGRAVER [address] [place] [address] Lumber Press Operator Family Medicine 10/04/24 Edith Salguero PA-C [address] [place] [address] Lumber Press Operator Family Medicine 10/04/24 Dishwashing Machine Operator Relationship Specialty Start Date End Date Ermias Lockwood MD [address] [place] [address] PCP - General Family Medicine 11/25/13 Franchesca Alarcon APRN.STEEL WHEEL ENGRAVER [address] [place] [address] Lumber Press Operator Family Medicine 10/04/24 Edith Salguero PA-C [address] [place] [address] Lumber Press Operator Family Medicine 10/04/24 Dishwashing Machine Operator Relationship Specialty Start Date End Date Ermias Lockwood MD [address] [place] [address] PCP - General Family Medicine 11/25/13 Franchesca Alarcon, KUMAR.STEEL WHEEL ENGRAVER [address] [place] [address] Lumber Press Operator Family Medicine 10/04/24 Edith Salguero PA-C [address] [place] [address] Lumber Press Operator Family Medicine 10/04/24 Dishwashing Machine Operator Relationship Specialty Start Date End Date Ermias Lockwood MD [address] [place] [address] PCP - General Family Medicine 11/25/13 Franchesca Alarcon APRN.STEEL WHEEL ENGRAVER [address] [place] [address] Lumber Press Operator Family Medicine 10/04/24 Edith Salguero PA-C [address] [place] [address] Lumber Press Operator Family Medicine 10/04/24 Dishwashing Machine Operator Relationship Specialty Start Date End Date Ermias Lockwood MD [address] [place] [address] PCP - General Family Medicine 02/02/25 Franchesca Alarcon, GLASS ROLLING MACHINE OPERATOR.STEEL WHEEL ENGRAVER [address] [place] [address] Lumber Press Operator Family Medicine 10/04/24 Edith Salguero PA-C [address] [place] [address] Lumber Press Operator Family Medicine 10/04/24 Dishwashing Machine Operator Relationship Specialty Start Date End Date Ermias Lockwood MD [address] [place] [address] PCP - General Family Medicine 02/02/25 Franchesca Alarcon APRN.STEEL WHEEL ENGRAVER [address] [place] [address] Lumber Press Operator Family Medicine 10/04/24 Edith Salguero PA-C [address] [place] [address] Lumber Press Operator Family Medicine 10/04/24 Dishwashing Machine Operator Relationship Specialty Start Date End Date Ermias Lockwood MD [address] [place] [address] PCP - General Family Medicine 02/02/25 Franchesca Alarcon APRN.STEEL WHEEL ENGRAVER [address] [place] [address] Lumber Press Operator Family Medicine 10/04/24 Edith Salguero PA-C [address] [place] [address] [place] 10/04/24 Dishwashing Machine Operator Relationship Specialty Start Date End Date Ermias Lockwood MD [address] [place] [address] PCP - General Family Medicine 11/25/13 02/01/25 Ermias Lockwood MD [address] [place] [address] PCP - General Family Medicine 02/02/25 Franchesca Alarcon APRN.STEEL WHEEL ENGRAVER [address] [place] [address] Lumber Press Operator Family Medicine 10/04/24 Edith Salguero PA-C [address] [place] [address] Lumber Press Operator Family Medicine 10/04/24 Dishwashing Machine Operator Relationship Specialty Start Date End Date Ermias Lockwood MD [address] [place] [address] PCP - General Family Medicine 02/02/25 Edith Salguero PA-C [address] [place] [address] Lumber Press Operator Family [facility] 10/04/24 Dishwashing Machine Operator Relationship Specialty Start Date End Date Ermias Lockwood MD [address] [place] [address] PCP - General Family Medicine 02/02/25 Edith Salguero PA-C [address] [place] [address] Lumber Press Operator Family [facility] 10/04/24 Dishwashing Machine Operator Relationship Specialty Start Date End Date Ermias Lockwood MD [address] [place] [address] PCP - General Family Medicine 02/02/25 Franchesca Alarcon APRN.CNP [address] [place] [address] Lumber Press Operator Family Medicine 03/30/25 Edith Salguero PA-C [address] [place] [address] Lumber Press Operator Family Medicine 03/30/25 Dishwashing Machine Operator Relationship Specialty Start Date End Date Ermias Lockwood MD [address] [place] [address] PCP - General Family Medicine 02/02/25 Franchesca Alarcon APRN.STEEL WHEEL ENGRAVER [facility] [place] [address] Lumber Press Operator Family Medicine 03/30/25 Edith Salguero PA-C [address] [place] [address] Lumber Press Operator Family Medicine 03/30/25 Dishwashing Machine Operator Relationship Specialty Start Date End Date Ermias Lockwood MD [address] [place] [address] PCP - General Family Medicine 02/02/25 Franchesca Alarcon APRN.STEEL WHEEL ENGRAVER [address] [place] [address] Lumber Press Operator Family Medicine 03/30/25 Edith Salguero PA-C [facility] [place] [address] Lumber Press Operator Family Medicine 03/30/25 Dishwashing Machine Operator Relationship Specialty Start Date End Date Ermias Lockwood MD [address] [place] [address] PCP - General Family Medicine 02/02/25 Franchesca Alarcon APRN.STEEL WHEEL ENGRAVER [facility] [place] [address] Lumber Press Operator Family Medicine 03/30/25 Edith Salguero PA-C [address] [place] [address] Lumber Press Operator Family Medicine 03/30/25 Dishwashing Machine Operator Relationship Specialty Start Date End Date Ermias Lockwood MD [address] [place] [address] PCP - General Family Medicine 02/02/25 Franchesca Alarcon, KUMAR.STEEL WHEEL ENGRAVER [address] [place] [address] Lumber Press Operator Family Medicine 03/30/25 Edith Salguero PA-C [address] [place] [address] [facility] Medicine 03/30/25 Dishwashing Machine Operator Relationship Specialty Start Date End Date Ermias Lockwood MD [address] [place] [address] PCP - General Family Medicine 02/02/25 Franchesca Alarcon, KUMAR.STEEL WHEEL ENGRAVER [address] [place] [address] Lumber Press Operator Family Medicine 03/30/25 Edith Salguero PA-C [address] [place] [address] Lumber Press Operator Family Medicine 03/30/25 Dishwashing Machine Operator Relationship Specialty Start Date End Date Ermias Lockwood MD [address] [place] [address] PCP - General Family Medicine 02/02/25 Franchesca Alarcon, GLASS ROLLING MACHINE OPERATOR.STEEL WHEEL ENGRAVER [address] [place] [address] Lumber Press Operator Family Medicine 03/30/25 Edith Salguero PA-C [address] [place] [address] Lumber Press Operator Family Medicine 03/30/25 Dishwashing Machine Operator Relationship Specialty Start Date End Date Ermias Lockwood MD [address] [place] [address] PCP - General Family Medicine 02/02/25 Franchesca Alarcon APRN.STEEL WHEEL ENGRAVER [address] [place] [address] Lumber Press Operator Family Medicine 03/30/25 Edith Salguero PA-C [facility] [place] [address] Lumber Press Operator Family Medicine 03/30/25 Dishwashing Machine Operator Relationship Specialty Start Date End Date Ermias Lockwood MD [address] [place] [address] PCP - General Family Medicine 02/02/25 Franchesca Alarcon APRN.STEEL WHEEL ENGRAVER [address] [place] [address] Lumber Press Operator Family Medicine 03/30/25 Edith Salguero PA-C [facility] [place] [address] Lumber Press Operator Family Medicine 03/30/25 Dishwashing Machine Operator Relationship Specialty Start Date End Date Ermias Lockwood MD [address] [place] [address] PCP - General Family Medicine 02/02/25 Franchesca Alarcon APRN.STEEL WHEEL ENGRAVER [facility] [place] [address] [facility] 03/30/25 Edith Salguero PA-C [address] [place] [address] [facility] 03/30/25 FOR RECORDS PERTAINING TO PATIENTS WHO ARE OR HAVE BEEN ENROLLED IN A CHEMICAL DEPENDENCY/SUBSTANCEABUSE PROGRAM, SOME INFORMATION MAY BE OMITTED. This clinical summary was aggregated from multiple sources. Caution should be exercised in using it in the provision of clinical care. This summary normalizes information from multiple sources, and as a consequence, information in this document may materially change the coding, format and clinical context of patient data. In addition, data may be omitted in some cases. CLINICAL DECISIONS SHOULD BE BASED ON THE PRIMARY CLINICAL RECORDS. [employer] [facility]. provides no warranty or guarantee of the accuracy or completeness of information in this document.
[2025-10-27 20:35] LABS: Barbiturate Urine NEGATIVE (< 200 ng/mL); Benzodiazepine Urine PRESUMPTIVE POSITIVE (< 200 ng/mL); PCP Urine NEGATIVE (< 25 ng/mL); THC Urine PRESUMPTIVE POSITIVE (< 50 ng/mL)
[2025-10-27 21:11] VITALS: BP 110/80; PULSE 92; RESP 16; TEMP 36.4; O2SAT 100
== END 2025-10-27 21:16 | disposition home or self-care (01) ==
PROVIDERS: Emergency Provider Surgery; PCP Family Medicine; Visit Provider Surgery
DX: F19.19 Other psychoactive substance abuse with unspecified psychoactive substance-induced disorder (principal); F41.9 Anxiety disorder, unspecified; Z90.49 Acquired absence of other specified parts of digestive tract; Z98.51 Tubal ligation status; F17.290 Nicotine dependence, other tobacco product, uncomplicated; M79.7 Fibromyalgia; Z86.19 Personal history of other infectious and parasitic diseases
CPT/HCPCS: 80053; 80307; 82077; 84703; 85025; 96360; 96361; 99283; A4216